=== PATIENT | female | born 1950 | race Caucasian/White ===

== ENCOUNTER 2020-09-03 14:26 | Outpatient (REF) | payer MEDICARE, OTHER, SELFPAY ==
[2020-09-03 15:24] LABS: Influenza A PCR NEGATIVE (Negative); Influenza B PCR NEGATIVE (Negative); Resp Syncy Virus RNA Qual PCR NEGATIVE (Negative); SARS COV2 PCR INHOUSE NEGATIVE (Negative)
== END 2020-09-03 14:27 | disposition home or self-care (01) ==
LOC: HO.LNP 14:26
PROVIDERS: Visit Provider Internal Medicine
DX: Z20.828 Contact with and (suspected) exposure to other viral communicable diseases (principal)
CPT/HCPCS: 0241U

== ENCOUNTER → 2020-11-30 09:41 | Outpatient (BNVA) | payer MEDICARE, OTHER, SELFPAY | PROVIDERS: PCP Internal Medicine; Visit Provider Orthopaedic Surgery | DX: M65.341 Trigger finger, right ring finger (principal); M19.041 Primary osteoarthritis, right hand; M19.042 Primary osteoarthritis, left hand; G56.01 Carpal tunnel syndrome, right upper limb | CPT/HCPCS: 99202 ==

== ENCOUNTER 2021-02-08 14:54 | Outpatient (REF) | payer MEDICARE, OTHER, SELFPAY ==
[2021-02-08 17:04] LABS: Hematocrit 52.5 % (37-47); Hemoglobin 16.4 g/dl (12.0-16.0); Mean Corpuscular HGB Conc 31.2 g/dl (31.0-35.0); Mean Corpuscular Hemoglobin 28.8 pg (27.0-33.0); Mean Corpuscular Volume 92.3 fL (80-98); Mean Platelet Volume 10.9 fL (9.4-12.3); Platelet Count 271 X10*3/uL (160-400); Red Blood Count 5.69 X10*6/uL (4.20-5.50); Red Cell Distribution Width 14.6 % (11.0-16.0)
[2021-02-08 17:16] LABS: Alanine Aminotransferase 22 U/L (0-31); Albumin Level 3.9 g/dL (3.5-5.0); Alkaline Phosphatase 161 U/L (39-117); Amylase 40 U/L (28-100); Anion Gap 13 (12-20); Aspartate Amino Transferase 29 U/L (5-31); Bilirubin Total 0.6 mg/dL (0.0-1.0); Blood Urea Nitrogen 20 mg/dL (9-16); C Reactive Protein 3.13 mg/dL (< or = 0.50); Carbon Dioxide 36 mmol/L (22-29); Chloride 98 mmol/L (96-108); Estimated Glomerular Filt Rate 54; Glucose Random 132 mg/dL (60-115); Potassium 3.7 mmol/L (3.3-5.1); Sodium 143 mmol/L (135-145); Total Protein 7.5 g/dL (6.5-8.0)
[2021-02-08 17:40] LABS: Vitamin D 25-OH Total 49.9 ng/mL (>30)
[2021-02-08 17:44] LABS: Vitamin B12 729 pg/mL (200-900)
[2021-02-08 18:25] LABS: SLIDE REVIEW MANUAL DIFF
[2021-02-08 18:31] LABS: Atypical Lymph Absolute Manual 1.2 x10*3/uL; Atypical Lymphs Percent Manual 9 % (0-6); Band Neutrophils Percent 2 % (3-5); Basophils Abs Manual 0.1 X10*3/uL (0.0-0.3); Basophils Percent Manual 1 % (0-1); Giant Platelet PRESENT; Lymphocytes Absolute Manual 3.5 X10*3/uL (0.6-4.8); Lymphocytes Percent Manual 27 % (20-40); Monocytes Absolute Manual 0.3 X10*3/uL (0.0-1.2); Monocytes Percent Manual 2 % (2-11); Neutrophils Absolute Manual 7.9 X10*3/uL (2.2-7.9); Neutrophils Percent Manual 59 % (45-73); Platelet Estimate NORMAL (NORMAL); Platelet Morphology Comment NOTED; RBC Morphology NORMAL; Smudge Cells PRESENT
== END 2021-02-08 14:55 | disposition home or self-care (01) ==
LOC: HO.LAB 14:54
PROVIDERS: PCP Internal Medicine; Visit Provider Internal Medicine
DX: J44.9 Chronic obstructive pulmonary disease, unspecified (principal); R60.0 Localized edema; I10 Essential (primary) hypertension; M19.90 Unspecified osteoarthritis, unspecified site; G62.9 Polyneuropathy, unspecified
CPT/HCPCS: 36415; 80053; 82150; 82306; 82607; 85007; 85025; 85027; 86140

== ENCOUNTER 2021-03-05 07:44 | Outpatient (REF) | payer MEDICARE, OTHER, SELFPAY ==
--- NOTE | ~2021-03-05 | US_ITS ---
EXAMINATION: US ABDOMEN COMPLETE CLINICAL INFORMATION: CKD. Abnormal serum enzymes, elevated alkaline phosphatase. COMPARISON: None TECHNIQUE: Real-time imaging of the abdominal viscera. FINDINGS: PANCREAS: Normal. ABDOMINAL AORTA: The proximal abdominal aorta is normal in caliber. The mid and distal abdominal aorta is not well visualized due to bowel gas. INFERIOR VENA CAVA: Visualized portions are normal. LIVER: The liver is normal in size. The liver contour is normal. Liver echotexture is increased. No focal hepatic lesion. There is no intrahepatic biliary duct dilatation seen. GALLBLADDER: Surgically absent. COMMON BILE DUCT: Normal in caliber measuring 0.5 cm in diameter. RIGHT KIDNEY: There is a 2.2 x 1.6 x 1.7 cm cyst in the midpole. No hydronephrosis or renal calculi. The kidney measures 10.0 cm in maximum dimension. LEFT KIDNEY: There is a 1.4 x 1.2 x 1.3 cm cyst exophytic to the lower pole. No hydronephrosis or renal calculi. The kidney measures 11.6 cm in maximum dimension. SPLEEN: Normal. The spleen measures 11.1 cm in maximum dimension. FREE FLUID: None. US/US abdomen complete IMPRESSION: Echogenic liver. Differential would include fatty infiltration and hepatocellular disease. The liver is normal in size and contour. Small bilateral renal cysts. Limited visualization of the aorta. Post cholecystectomy.
== END 2021-03-05 07:45 | disposition home or self-care (01) ==
LOC: HO.US 07:44
PROVIDERS: Visit Provider Internal Medicine
DX: R74.8 Abnormal levels of other serum enzymes (principal); N18.9 Chronic kidney disease, unspecified
CPT/HCPCS: 76700

== ENCOUNTER 2021-10-18 14:26 | Outpatient (REF) | payer MEDICARE, OTHER, SELFPAY ==
--- NOTE | ~2021-10-18 | US_ITS ---
EXAMINATION: US VENOUS ULTRASOUND WITH DOPPLER LOWER EXTREMITY, LEFT CLINICAL INFORMATION: Left leg swelling and mass COMPARISON: None TECHNIQUE: Ultrasound of the deep veins is performed from the hip to the calf with compression sonography and color and pulse Doppler assessment. Spectral analysis with color-flow imaging is performed. FINDINGS: There is normal venous compression and respiratory variation and augmented flow. The visualized common femoral vein, superficial femoral vein, profunda femoral vein, popliteal vein, and the trifurcation region shows no evidence of deep venous thrombosis. There is no popliteal fossa cyst. There is a soft tissue swelling or edema in the popliteal fossa and proximal calf. US/US venous duplex LE LT IMPRESSION: Soft tissue swelling or edema in the popliteal fossa and proximal calf. No DVT or Anaya's cyst demonstrated in the left lower extremity.
== END 2021-10-18 14:27 | disposition home or self-care (01) ==
LOC: HO.US 14:26
PROVIDERS: Visit Provider Internal Medicine
DX: R22.42 Localized swelling, mass and lump, left lower limb (principal)
CPT/HCPCS: 93971

== ENCOUNTER 2021-10-26 14:21 | Outpatient (REF) | payer MEDICARE, OTHER, SELFPAY ==
--- NOTE | ~2021-10-26 | US_ITS ---
EXAMINATION: US VENOUS ULTRASOUND WITH DOPPLER LOWER EXTREMITY, LEFT CLINICAL INFORMATION: Swelling COMPARISON: Previous exam most recent 10/18/2021 TECHNIQUE: Ultrasound of the deep veins is performed from the hip to the calf with compression sonography and color and pulse Doppler assessment. Spectral analysis with color-flow imaging is performed. FINDINGS: There is normal venous compression and respiratory variation and augmented flow. The visualized common femoral vein, superficial femoral vein, profunda femoral vein, and popliteal vein shows no evidence of deep venous thrombosis. Calf veins are not well visualized due to swelling. There is no significant popliteal fossa cyst. US/US venous duplex LE LT IMPRESSION: No DVT demonstrated in the left lower extremity. Calf veins not well visualized.
== END 2021-10-26 14:22 | disposition home or self-care (01) ==
LOC: HO.US 14:21
PROVIDERS: PCP Internal Medicine; Visit Provider Internal Medicine
DX: R22.42 Localized swelling, mass and lump, left lower limb (principal)
CPT/HCPCS: 93971

== ENCOUNTER 2021-11-01 11:49 | Outpatient (REF) | payer MEDICARE, OTHER, SELFPAY ==
--- NOTE | ~2021-11-01 | MR_ITS ---
EXAMINATION: MRI ANKLE WITHOUT CONTRAST, LEFT CLINICAL INFORMATION: Left leg pain, negative ultrasound. Evaluate for Achilles tear. No injury. COMPARISON: None TECHNIQUE: MRI of the left ankle was performed without contrast on a high-field MRI scanner. FINDINGS: SUBCUTANEOUS SOFT TISSUES: Moderate fluid signal noted throughout the subcutaneous soft tissues compatible with edema but cannot exclude cellulitis. MUSCLES/TENDONS: There is also generalized severe fatty infiltration with atrophy of the essentially all the muscles in the lower leg and visualized foot. There is scattered mild edema within the plantar musculature of the foot. Achilles: The tendon is normal. Peroneal brevis tendon: There is heterogeneity, irregularity and increased signal within the tendon as it passes below the fibula to the level of the peroneal tubercle indicative of longitudinal partial tearing. No transverse defect or tendon retraction. Mild tenosynovitis. Peroneal longus intact. PLANTAR FASCIA: There is mild thickening of the proximal plantar fascia compatible with old partial tear or plantar fasciitis. Moderate-sized plantar calcaneal spur noted. NEUROVASCULAR STRUCTURES/TARSAL TUNNEL: Normal. LIGAMENTS: Intact. BONE AND ARTICULAR CARTILAGE: In the talus just deep to the posterior subtalar joint there is a focal serpentine-shaped area of heterogeneous abnormal signal with an appearance characteristic for a chronic bone infarct. There are areas of fat within the central portion of the abnormality along with well-defined peripheral margin predominately bright on T2 and dark on T1. This area measures approximately 1 cm. There is no surrounding edema. THIRD TARSOMETATARSAL JOINT: Mild arthrosis manifested by subchondral cystic change. MR/MR ankle LT wo con IMPRESSION: 1. Partial tear of the peroneal brevis tendon with mild tenosynovitis. 2. The Achilles is intact. 3. Abnormality in the subcutaneous tissues most compatible with prominent edema but cannot exclude cellulitis. 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 5. Diffuse muscle abnormality with severe fatty infiltration throughout and mild edema. This raises the question of denervation myositis. 6. Mild arthrosis of the 3rd tarsometatarsal joint.
== END 2021-11-01 11:50 | disposition home or self-care (01) ==
LOC: HO.MRI 11:49
PROVIDERS: PCP Internal Medicine; Visit Provider Internal Medicine
DX: M79.662 Pain in left lower leg (principal)
CPT/HCPCS: 73721

== ENCOUNTER 2022-06-17 09:34 | Emergency (ER) | payer MEDICARE, OTHER, SELFPAY ==
--- NOTE | ~2022-06-17 | US_ITS ---
EXAMINATION: US VENOUS ULTRASOUND WITH DOPPLER LOWER EXTREMITY, RIGHT CLINICAL INFORMATION: Posterior right knee pain. COMPARISON: None TECHNIQUE: Ultrasound of the deep veins is performed from the hip to the calf with compression sonography and color and pulse Doppler assessment. Spectral analysis with color-flow imaging is performed. FINDINGS: There is normal venous compression and respiratory variation and augmented flow. The visualized common femoral vein, superficial femoral vein, profunda femoral vein, popliteal vein, and the trifurcation region shows no evidence of deep venous thrombosis. No right popliteal cyst. Mild subcutaneous edema in the right calf. If the patient's symptoms persist, followup ultrasound in 5 days 7 days might be of value to exclude proximal propagation from a non-visualized calf vein. US/US venous duplex LE RT IMPRESSION: No evidence for deep venous thrombosis in the visualized veins of the right lower extremity.
--- NOTE | ~2022-06-17 | XR_ITS ---
EXAMINATION: XR KNEE, RIGHT CLINICAL INFORMATION: Right knee pain COMPARISON: None TECHNIQUE: Four views of the right knee. FINDINGS: There is no evidence of acute fracture or dislocation of the right knee. There is severe narrowing of the medial joint space compartment with some marginal spurring. There is mild marginal spurring of the lateral joint space without significant narrowing. There is marked narrowing of the patellofemoral joint with spurring and subchondral cyst formation. There is a small amount of suprapatellar fluid present. There is a faint 7 mm calcification seen on lateral view overlying the posterior joint space and this may represent a loose body. XR/XR knee RT 4V IMPRESSION: Severe degenerative change of the medial joint space compartment and patellofemoral joint as described. Question loose body.
[2022-06-17 09:52] VITALS: BP 143/89; PULSE 70; O2SAT 94
[2022-06-17 09:53] VITALS: BP 120/65; PULSE 70; RESP 18; TEMP 36.6; O2SAT 95; BMI 46.2
--- NOTE | 2022-06-17 12:12 | ED.GENADULT ---
HPI - General Adult General Chief complaint: Extremity Injury, Lower Stated complaint: BILAT LEG PAIN Time Seen by Provider: 06/17/22 10:01 Source: patient Mode of arrival: ambulatory Limitations: no limitations History of Present Illness HPI narrative: 71 old female history of osteoarthritis, carpal tunnel syndrome, presents to ED for right, anterior/posterior knee pain, and upper calf pain for the past 2 days. Patient states painful to walk. Patient denies any recent trauma to the area. Patient denies any chest pain or shortness of breath. Patient denies any leg swelling, redness, fever, chest pain, pleurisy shortness of breath, or chills. Patient denies any numbness/swelling, redness, bluish/black discloration likes of extremity. Patient denies any back pain. Related Data Home Medications Medication Instructions Recorded Confirmed furosemide 20 mg tablet 10 mg PO QAM 11/30/20 gabapentin 100 mg capsule 100 mg PO DAILY 11/30/20 lisinopril 2.5 mg tablet 2.5 mg PO DAILY 11/30/20 tramadol 50 mg tablet 50 mg PO DAILY 11/30/20 Previous Rx's Medication Instructions Recorded ketorolac 10 mg tablet 10 mg PO QID PRN pain 5 days #20 06/17/22 tabs Allergies Allergy/AdvReac Type Severity Reaction Status Date / Time PCN Allergy Unknown rash Uncoded 03/16/12 00:00 Penicillin Allergy Unknown rash Uncoded 11/30/20 09:57 PredniSONE Allergy Unknown high dose Uncoded 11/30/20 09:57 gives her rashes prednisone Allergy Unknown rash Uncoded 03/16/12 00:00 Review of Systems Review of Systems: Right anterior/ posterior knee pain Yes all other systems are reviewed and are negative PMFSH Past Medical History Medical History (Updated 06/17/22 @ 15:30 by COREY Gibbs) Carpal tunnel syndrome, left High blood pressure Nerve pain Surgical History (Updated 11/30/20 @ 10:01 by MATT Castellanos) H/O: hysterectomy Social History Social History (Updated 11/30/20 @ 10:02 by MATT Castellanos) Advance Directives: Yes Advance Directives Information Provided: Yes Advance Directives on File: No Current occupational status: retired Current occupation: left handed Physical Exam ED Vital Signs: Vital Signs - 24 hr 06/17/22 09:53 06/17/22 12:25 06/17/22 15:28 Temperature 98 F 98.4 F Pulse Rate 70 62 78 Respiratory Rate 18 13 Blood Pressure 120/65 116/62 125/76 Pulse Oximetry 95 93 98 Oxygen Delivery Method Room Air Room Air BMI result Body Mass Index 46.2 Const General: cooperative, healthy appearing, comfortable, no acute distress, well developed, alert, awake and Physically active Orientation/consciousness: oriented to time and patient oriented x3 [facility] Head: Yes normal to inspection, Yes No palpable skull fracture present, Yes normocephalic, Yes atraumatic and No abrasion Eyes General: appearance normal, both eyes and all related structures Neck Neck: Yes normal visual inspection, Yes full ROM, Yes no lymphadenopathy, Yes no meningeal signs, Yes trachea midline, Yes supple, No anterior neck swelling and No tender Chest Chest palpation & inspection: normal inspection of the chest and normal palpation of entire chest wall Resp Effort & Inspection: normal respiratory effort and able to speak in complete sentences Auscultation: clear to auscultation bilaterally Cardio Jugular venous distension: no JVD Heart sounds: S1 normal heart sound present and S2 normal heart sound present GI Inspection: Yes normal to inspection and No abdominal wall ecchymosis Palpation (GI): not firm, nontender, no guarding and not rigid General: No CVA tenderness and Yes no CVA tenderness Back/Spine/Pelvis Back: no CVA tenderness, No CVA tenderness and No back tenderness Skin General skin exam: no rashes or lesions noted and elasticity normal Neuro General: oriented to time, patient oriented x3, gait normal, tone normal, no meningeal signs and CN's II-XI intact bilaterally Cranial nerves: Yes CN's II-XII intact bilaterally Extrem Other: Bilateral lower extremities negative for any redness, swelling, pitting edema, crepitus, deformity, or ecchymosis. bilateral lower extremities motor, neuro, and vascular exam. General: Yes normal to inspection and Yes full ROM Knee images: 1. Positive for tenderness on palpation. Negative for any erythema, warmth, or swelling. 2. Positive for tenderness on palpation. Negative for any erythema, warmth, or swelling. 3. Tenderness on palpation. Negative for any redness, warmth, or deformity Psych Appearance: grossly normal, well kempt and not disheveled Course Course Course Narrative: Patient sent for x-ray and ultrasound of right knee Reevaluation(s) Reevaluation #1: Ultrasound came back negative for DVT or Anaya cyst. Knee x-ray came back positive for severe arthritis and small suprapatellar effusion. Patient given morphine on top of Toradol. Patient did not want physical therapy for evaluation for possible SNF or custodial. Patient baseline ambulates with scooter and wheelchair. Patient has help at home with family. Time: 15:52 Medical Decision Making MDM Narrative Medical decision making narrative: Knee arthritis Discharge Plan Discharge Clinical Impression: Arthritis of knee, right, Effusion of right knee Patient Disposition: Home, Self-Care Instructions: Osteoarthritis (ED), Swollen Knee Joint (ED) Additional Instructions: Your x-ray shows severe arthritis of the knee with small joint effusion. Ultrasound came back negative for DVT or Anaya cyst. Return to ED for any redness, swelling, pus discharge, foul odor, bluish discoloration, numbness, chest pain, shortness of breath, or any other concerning symptoms. You will be discharged with Toradol. Do not take any other NSAIDs with Toradol. Prescriptions: New ketorolac 10 mg tablet 10 mg PO QID PRN (Reason: pain) 5 Days Qty: 20 0RF Rx Instructions: patient received toradol 30mg IM in the ED Referrals: [facility] [place] [facility] [Provider Group] (Severe right knee arthritis with joint effusion) Interventions: ED Discharge Assessment Last Done: 06/17/22 16:08 Discharge Date/Time: 06/17/22 16:08 Print Language: Kyrgyz
[2022-06-17 12:25] VITALS: BP 116/62; PULSE 62; RESP 13; TEMP 36.9; O2SAT 93
[2022-06-17] MEDS: Cyclobenzaprine HCl 10 MG TABLET PO (12:57)
[2022-06-17] MEDS: Ketorolac Tromethamine 15 MG/ML VIAL IVPUSH (12:58)
[2022-06-17] MEDS: Morphine Sulfate 4 MG/ML CARTRIDGE IVPUSH (14:50)
[2022-06-17 15:28] VITALS: BP 125/76; PULSE 78; O2SAT 98
== END 2022-06-17 16:08 | disposition home or self-care (01) ==
PROVIDERS: Emergency Provider Student in an Organized Health Care Education/Training Program; PCP Internal Medicine
DX: M17.0 Bilateral primary osteoarthritis of knee (principal); M25.461 Effusion, right knee; R60.0 Localized edema; Z79.899 Other long term (current) drug therapy
CPT/HCPCS: 73564; 93971; 96374; 96375; 99283; 99284; J1885; J2270

== ENCOUNTER 2022-06-21 14:25 | Outpatient (REF) | payer MEDICARE, OTHER, SELFPAY ==
[2022-06-21 14:58] LABS: MANUAL DIFF FLAG NO
[2022-06-21 15:23] LABS: Basophils Absolute Auto 0.1 X10*3/uL (0.0-0.2); Basophils Percent Auto 0.7 % (0-2); Eosinophils Absolute Auto 0.4 X10*3/uL (0.0-0.4); Hematocrit 42.8 % (37.0-47.0); Hemoglobin 13.6 g/dl (12.0-16.0); Imm Gran Abs Auto 0.03 X10*3/uL (0.00-0.03); Imm Gran Pct Auto 0.3 % (0.0-0.4); Lymphocytes Percent Auto 26.4 % (20-40); Mean Corpuscular HGB Conc 31.8 g/dl (31.0-35.0); Mean Corpuscular Hemoglobin 30.7 pg (27.0-33.0); Mean Corpuscular Volume 96.6 fL (80.0-98.0); Monocytes Absolute Auto 1.2 X10*3/uL (0.1-1.2); Monocytes Percent Auto 10.1 % (2-11); Neutrophils Absolute Auto 6.9 x10*3/uL (2.0-8.3); Neutrophils Percent Auto 59.5 % (45-73); Platelet Count 276 X10*3/uL (160-400); Red Blood Count 4.43 X10*6/uL (4.20-5.50); Red Cell Distribution Width 14.7 % (11.0-16.0); White Blood Count 11.5 X10*3/uL (4.8-10.8)
[2022-06-21 15:32] LABS: Estimated Average Glucose 123 mg/dL; Hemoglobin A1c % 5.9 %
[2022-06-21 15:44] LABS: Alanine Aminotransferase 22 U/L (0-31); Albumin Level 3.8 g/dL (3.5-5.0); Alkaline Phosphatase 137 U/L (39-117); Anion Gap 19 (12-20); Aspartate Amino Transferase 24 U/L (5-31); Bilirubin Total 0.3 mg/dL (0.0-1.0); Blood Urea Nitrogen 54 mg/dL (9-16); Calcium 9.3 mg/dL (8.4-10.2); Carbon Dioxide 25 mmol/L (22-29); Chloride 99 mmol/L (96-108); Estimated Glomerular Filt Rate 24; Glucose Random 94 mg/dL (60-115); Potassium 4.7 mmol/L (3.3-5.1); Sodium 138 mmol/L (135-145); Total Protein 7.6 g/dL (6.5-8.0)
[2022-06-21 15:57] LABS: Thyroid Stimulating Hormone 1.31 uIU/mL (0.32-4.0)
== END 2022-06-21 14:26 | disposition home or self-care (01) ==
LOC: HO.LAB 14:25
PROVIDERS: PCP Internal Medicine; Visit Provider Internal Medicine
DX: J44.9 Chronic obstructive pulmonary disease, unspecified (principal); E11.9 Type 2 diabetes mellitus without complications; I10 Essential (primary) hypertension; R60.9 Edema, unspecified; M19.90 Unspecified osteoarthritis, unspecified site
CPT/HCPCS: 36415; 80053; 83036; 84443; 85025

== ENCOUNTER 2022-10-10 12:16 | Outpatient (REF) | payer MEDICARE, OTHER, SELFPAY ==
[2022-10-10 12:29] LABS: MANUAL DIFF FLAG NO
[2022-10-10 14:18] LABS: Basophils Absolute Auto 0.1 X10*3/uL (0.0-0.2); Basophils Percent Auto 0.7 % (0-2); Eosinophils Absolute Auto 0.4 X10*3/uL (0.0-0.4); Hematocrit 40.8 % (37.0-47.0); Hemoglobin 12.8 g/dl (12.0-16.0); Imm Gran Abs Auto 0.05 X10*3/uL (0.00-0.03); Imm Gran Pct Auto 0.5 % (0.0-0.4); Lymphocytes Absolute Auto 2.5 X10*3/uL (1.2-4.9); Lymphocytes Percent Auto 23.4 % (20-40); Mean Corpuscular HGB Conc 31.4 g/dl (31.0-35.0); Mean Corpuscular Hemoglobin 30.6 pg (27.0-33.0); Mean Corpuscular Volume 97.6 fL (80.0-98.0); Mean Platelet Volume 10.4 fL (9.4-12.3); Monocytes Absolute Auto 0.8 X10*3/uL (0.1-1.2); Monocytes Percent Auto 7.3 % (2-11); Neutrophils Absolute Auto 6.9 x10*3/uL (2.0-8.3); Neutrophils Percent Auto 64.1 % (45-73); Platelet Count 270 X10*3/uL (160-400); Red Blood Count 4.18 X10*6/uL (4.20-5.50); Red Cell Distribution Width 15.1 % (11.0-16.0); White Blood Count 10.8 X10*3/uL (4.8-10.8)
[2022-10-10 14:48] LABS: Alanine Aminotransferase 23 U/L (0-31); Albumin Level 3.4 g/dL (3.5-5.0); Alkaline Phosphatase 140 U/L (39-117); Anion Gap 17 (12-20); Aspartate Amino Transferase 26 U/L (5-31); Bilirubin Total 0.3 mg/dL (0.0-1.0); Blood Urea Nitrogen 81 mg/dL (9-16); C Reactive Protein 6.44 mg/dL (< or = 0.50); Calcium 9.7 mg/dL (8.4-10.2); Carbon Dioxide 32 mmol/L (22-29); Chloride 97 mmol/L (96-108); Estimated Glomerular Filt Rate 16; Glucose Random 117 mg/dL (60-115); Magnesium 2.7 mg/dL (1.6-2.6); Potassium 4.3 mmol/L (3.3-5.1); Sodium 142 mmol/L (135-145); Total Protein 6.9 g/dL (6.5-8.0)
== END 2022-10-10 12:17 | disposition home or self-care (01) ==
LOC: HO.LAB 12:16
PROVIDERS: PCP Internal Medicine; Visit Provider Internal Medicine
DX: I12.9 Hypertensive chronic kidney disease with stage 1 through stage 4 chronic kidney disease, or unspecified chronic kidney disease (principal); N18.9 Chronic kidney disease, unspecified; M19.90 Unspecified osteoarthritis, unspecified site; R25.1 Tremor, unspecified
CPT/HCPCS: 36415; 80053; 83735; 85025; 86140

== ENCOUNTER 2022-10-13 15:07 | Outpatient (REF) | payer MEDICARE, OTHER, SELFPAY ==
--- NOTE | ~2022-10-13 | US_ITS ---
EXAMINATION: US RETROPERITONEAL COMPLETE (RENAL) CLINICAL INFORMATION: Acute renal insufficiency. COMPARISON: Abdominal ultrasound dated 03/05/2021. TECHNIQUE: Real-time imaging of the kidneys and bladder. FINDINGS: RIGHT KIDNEY: 9.5 x 5.1 x 5.3 cm (SAG x AP x TRV). An interpolar anechoic cyst measures 2.0 cm. No hydronephrosis or nephrolithiasis. Color Doppler showed no abnormal vascular flow. LEFT KIDNEY: 10.2 x 5.4 x 4.4 cm (SAG x AP x TRV). An interpolar anechoic cyst measures 2.4 cm. A second interpolar anechoic cyst measures 1.5 cm. A lower pole exophytic anechoic cyst measures 1.9 cm. No hydronephrosis or nephrolithiasis. Color Doppler showed no abnormal vascular flow. BLADDER: Well distended and normal. Bilateral ureteral jets are demonstrated. Prevoid bladder volume is 217 mL. Postvoid bladder volume is 18 mL. US/US retroperitoneal comp IMPRESSION: Small renal cysts bilaterally demonstrate benign features not requiring follow-up. No other significant abnormality.
== END 2022-10-13 15:08 | disposition home or self-care (01) ==
LOC: HO.US 15:07
PROVIDERS: Visit Provider Internal Medicine
DX: N17.9 Acute kidney failure, unspecified (principal)
CPT/HCPCS: 76770

== ENCOUNTER 2022-11-28 12:23 | Outpatient (REF) | payer MEDICARE, OTHER, SELFPAY ==
[2022-11-28 13:40] LABS: MANUAL DIFF FLAG NO
[2022-11-28 13:59] LABS: Basophils Absolute Auto 0.1 X10*3/uL (0.0-0.2); Basophils Percent Auto 0.5 % (0-2); Eosinophils Absolute Auto 0.2 X10*3/uL (0.0-0.4); Eosinophils Percent Auto 1.7 % (0-4); Hematocrit 43.5 % (37.0-47.0); Hemoglobin 13.4 g/dl (12.0-16.0); Imm Gran Abs Auto 0.06 X10*3/uL (0.00-0.03); Imm Gran Pct Auto 0.5 % (0.0-0.4); Lymphocytes Absolute Auto 2.3 X10*3/uL (1.2-4.9); Lymphocytes Percent Auto 18.2 % (20-40); Mean Corpuscular HGB Conc 30.8 g/dl (31.0-35.0); Mean Corpuscular Hemoglobin 29.6 pg (27.0-33.0); Mean Platelet Volume 9.6 fL (9.4-12.3); Monocytes Absolute Auto 0.9 X10*3/uL (0.1-1.2); Monocytes Percent Auto 6.8 % (2-11); Neutrophils Absolute Auto 9.2 x10*3/uL (2.0-8.3); Neutrophils Percent Auto 72.3 % (45-73); Platelet Count 300 X10*3/uL (160-400); Red Blood Count 4.53 X10*6/uL (4.20-5.50); Red Cell Distribution Width 15.2 % (11.0-16.0); White Blood Count 12.7 X10*3/uL (4.8-10.8)
[2022-11-28 14:16] LABS: Alanine Aminotransferase 17 U/L (0-31); Albumin Level 3.4 g/dL (3.5-5.0); Alkaline Phosphatase 130 U/L (39-117); Anion Gap 14 (12-20); Aspartate Amino Transferase 22 U/L (5-31); Bilirubin Total 0.4 mg/dL (0.0-1.0); Blood Urea Nitrogen 22 mg/dL (9-16); Calcium 9.5 mg/dL (8.4-10.2); Carbon Dioxide 31 mmol/L (22-29); Chloride 97 mmol/L (96-108); Estimated Glomerular Filt Rate 44; Glucose Random 113 mg/dL (60-115); Potassium 4.1 mmol/L (3.3-5.1); Sodium 138 mmol/L (135-145); Total Protein 6.8 g/dL (6.5-8.0)
[2022-11-28 15:03] LABS: B Type Natriuretic Peptide 91 pg/mL (<100)
== END 2022-11-28 12:24 | disposition home or self-care (01) ==
LOC: HO.10HDL 12:23
PROVIDERS: Visit Provider Internal Medicine
DX: J44.9 Chronic obstructive pulmonary disease, unspecified (principal); R60.0 Localized edema; I12.9 Hypertensive chronic kidney disease with stage 1 through stage 4 chronic kidney disease, or unspecified chronic kidney disease; N18.9 Chronic kidney disease, unspecified
CPT/HCPCS: 36415; 80053; 83880; 85025

== ENCOUNTER 2022-12-20 09:57 | Outpatient (REF) | payer MEDICARE, OTHER, SELFPAY ==
[2022-12-20 11:03] LABS: Anion Gap 16 (12-20); Blood Urea Nitrogen 38 mg/dL (9-16); C Reactive Protein 21.91 mg/dL (< or = 0.50); Calcium 9.8 mg/dL (8.4-10.2); Carbon Dioxide 32 mmol/L (22-29); Chloride 93 mmol/L (96-108); Estimated Glomerular Filt Rate 27; Glucose Random 130 mg/dL (60-115); Potassium 3.9 mmol/L (3.3-5.1); Sodium 137 mmol/L (135-145)
[2022-12-20 11:08] LABS: Erythrocyte Sedimentation Rate 81 MM/HR (0-20)
== END 2022-12-20 09:58 | disposition home or self-care (01) ==
LOC: HO.10HDL 09:57
PROVIDERS: Visit Provider Internal Medicine
DX: M54.9 Dorsalgia, unspecified (principal); M25.519 Pain in unspecified shoulder
CPT/HCPCS: 36415; 80048; 82550; 85652; 86140

== ENCOUNTER → 2023-01-04 10:52 | Outpatient (REF) | payer MEDICARE, OTHER, SELFPAY ==
--- NOTE | ~2023-01-04 | NM_ITS ---
EXAMINATION: NM BONE SCAN OF THE WHOLE BODY CLINICAL INFORMATION: A 72-year-old female with history of lung cancer, presented with bone pain. COMPARISON: No existing relevant imaging study available. TECHNIQUE: Multiple gamma scintillation camera images of the whole body were performed 2.25 hours following the intravenous administration of 40 mCi Tc-99m MDP. FINDINGS: In the head, no suspicious focal lesion. In the thoracic cage and upper extremities, no suspicious focal lesion. Mild increased asymmetric radiotracer activities around both shoulder and sternoclavicular joints likely represent arthritic and/or posttraumatic changes. In the spine, focal increased radiotracer activities at the upper to mid lumbar spine are nonspecific however, may represent degenerative changes. Correlation with alternative imaging modality including radiographs and/or CT scan or MRI as appropriate may be considered for further clarification, as clinically appropriate. There are no prior bone scan available for comparison. In the pelvis, no suspicious focal lesion. In the lower extremities, moderately intense abnormal increased radiotracer activities around both knees and both feet (specifically around the right ankle and the left midfoot) are likely posttraumatic and/or degenerative arthritic changes. No other definite bony abnormalities are noted. The urinary bladder and faint visualization of both kidneys are noted. The left kidney is low-lying. NM/NM bone scan whole body IMPRESSION: 1. No definite scintigraphic evidence of osseous metastasis. However, foci of increased radiotracer activities at upper to mid lumbar spine are nonspecific. Correlation with alternative imaging modality including radiographs and/or CT scan or MRI as appropriate may be considered for further clarification as clinically appropriate. There are no prior studies available at the moment for comparison. The study was read without the benefit of comparison with prior studies. 2. Moderately intense abnormal increased radiotracer activities around both shoulder, sternoclavicular joints, both knees and both feet likely represent degenerative and/or posttraumatic arthritic changes.
== END ==
LOC: HO.NUCMED 10:52
PROVIDERS: PCP Internal Medicine; Visit Provider Internal Medicine
DX: M85.80 Other specified disorders of bone density and structure, unspecified site (principal)
CPT/HCPCS: 78306; A9503

== ENCOUNTER 2023-02-27 13:03 | Outpatient (REF) | payer MEDICARE, OTHER, SELFPAY ==
[2023-02-27 14:06] LABS: MANUAL DIFF FLAG NO
[2023-02-27 14:18] LABS: Basophils Absolute Auto 0.1 X10*3/uL (0.0-0.2); Basophils Percent Auto 0.6 % (0-2); Eosinophils Absolute Auto 0.2 X10*3/uL (0.0-0.4); Eosinophils Percent Auto 1.1 % (0-4); Hematocrit 42.7 % (37.0-47.0); Hemoglobin 13.2 g/dl (12.0-16.0); Imm Gran Abs Auto 0.08 X10*3/uL (0.00-0.03); Imm Gran Pct Auto 0.6 % (0.0-0.4); Lymphocytes Percent Auto 20.6 % (20-40); Mean Corpuscular HGB Conc 30.9 g/dl (31.0-35.0); Mean Corpuscular Hemoglobin 29.4 pg (27.0-33.0); Mean Corpuscular Volume 95.1 fL (80.0-98.0); Mean Platelet Volume 9.4 fL (9.4-12.3); Monocytes Percent Auto 6.8 % (2-11); Neutrophils Absolute Auto 10.2 x10*3/uL (2.0-8.3); Neutrophils Percent Auto 70.3 % (45-73); Platelet Count 374 X10*3/uL (160-400); Red Blood Count 4.49 X10*6/uL (4.20-5.50); Red Cell Distribution Width 16.5 % (11.0-16.0); White Blood Count 14.5 X10*3/uL (4.8-10.8)
[2023-02-27 14:54] LABS: Alanine Aminotransferase 24 U/L (0-31); Albumin Level 3.5 g/dL (3.5-5.0); Alkaline Phosphatase 133 U/L (39-117); Anion Gap 12 (12-20); Aspartate Amino Transferase 27 U/L (5-31); Bilirubin Total 0.3 mg/dL (0.0-1.0); Blood Urea Nitrogen 37 mg/dL (9-16); C Reactive Protein 4.51 mg/dL (< or = 0.50); Calcium 10.9 mg/dL (8.4-10.2); Carbon Dioxide 35 mmol/L (22-29); Chloride 95 mmol/L (96-108); Estimated Glomerular Filt Rate 31; Glucose Random 86 mg/dL (60-115); Potassium 4.4 mmol/L (3.3-5.1); Sodium 138 mmol/L (135-145); Total Protein 7.9 g/dL (6.5-8.0)
[2023-02-27 15:10] LABS: Thyroid Stimulating Hormone 0.76 uIU/mL (0.32-4.0)
[2023-02-27 15:18] LABS: Vitamin B12 942 pg/mL (200-900)
== END 2023-02-27 13:04 | disposition home or self-care (01) ==
LOC: HO.10HDL 13:03
PROVIDERS: Visit Provider Internal Medicine
DX: J44.9 Chronic obstructive pulmonary disease, unspecified (principal); N18.9 Chronic kidney disease, unspecified; R25.1 Tremor, unspecified
CPT/HCPCS: 36415; 80053; 82607; 84443; 85025; 86140

== ENCOUNTER 2023-03-15 16:29 | Inpatient (IN) | payer MEDICARE, OTHER, SELFPAY ==
[2023-03-15] VITALS (7 sets, daily range): BP systolic 88–125; BP diastolic 34–91; PULSE 74–89; RESP 16–22; TEMP 36.2–36.8; O2SAT 83–93; BMI 47.6
--- NOTE | ~2023-03-15 | CT_ITS ---
EXAMINATION: CT CHEST WITHOUT CONTRAST CLINICAL INFORMATION: Hypoxia. COMPARISON: None available. TECHNIQUE: Multidetector volumetric CT imaging of the chest was done. Axial MIP volume rendering provided. Sagittal and coronal reformatted images were obtained. This CT examination was performed using dose optimization techniques as appropriate, variously including the following: *Automated exposure control *Adjustment of mA and/or kV according to patient size (this includes techniques or standardized protocols for targeted exams where dose is matched to indication/reason for exam; i.e. extremities or head) *Use of iterative reconstruction technique DLP: 403 mGy-cm FINDINGS: Image quality is technically degraded by motion artifact. LUNGS: Scarring at the left apex. Moderate centrilobular emphysema. Mild subpleural reticular changes. 6 mm nodule right middle lobe on image 247. 4 mm nodule right upper lobe on image 139. Left lower lobe consolidation. Central airways are patent. MEDIASTINUM: Dilated pulmonary trunk and ectatic pulmonary arteries. Heart is enlarged. No pericardial effusion. No bulky mediastinal or hilar lymphadenopathy. CORONARY ARTERY CALCIFICATION: Moderate. PLEURA: No pleural effusion. AXILLA: Left axillary lymph node measures 0.9 x 1.8 cm. UPPER ABDOMEN: Bilateral adrenal thickening. 1.2 cm calcified splenic artery aneurysm. OSSEOUS STRUCTURES: No destructive bone lesions. CT/CT chest wo IV con IMPRESSION: Left lower lobe pneumonia. Follow-up until resolution is advised. Pulmonary nodules measuring up to 6 mm. Follow-up chest CT in 6-12 months is advised.
--- NOTE | ~2023-03-15 | XR_ITS ---
EXAMINATION: XR CHEST CLINICAL INFORMATION: Productive cough. COMPARISON: 08/16/2016 chest radiograph. TECHNIQUE: 2 views of the chest were obtained. FINDINGS: No significant abnormality is noted involving the heart, lungs, mediastinum, bony thorax or soft tissues. XR/XR chest 2V IMPRESSION: No acute cardiopulmonary process.
--- NOTE | 2023-03-15 16:30 | ECG_ITS ---
Test Reason : CHEST PAIN Blood Pressure : / mmHG Vent. Rate : 075 BPM Atrial Rate : 000 BPM P-R Int : 000 ms QRS Dur : 064 ms QT Int : 372 ms P-R-T Axes : 000 -26 005 degrees QTc Int : 415 ms Normal sinus bradycardia Low voltage QRS Inferior infarct , age undetermined Abnormal ECG When compared with ECG of 02-JAN-2002 06:59, Inferior infarct is now Present Referred By: Generic ED Physician Electronically Signed By:BRO AHDDAD MD
--- NOTE | 2023-03-15 16:50 | ED_ITS ---
HPI - General Adult General Chief complaint: Chest Pain Stated complaint: Chest pain/diff breathing/sent by Dr Time Seen by Provider: 03/15/23 17:07 Related Data Home Medications Medication Instructions Recorded Confirmed acetaminophen 325 mg capsule 650 mg PO BEDTIME PRN Pain 03/15/23 03/15/23 (Tylenol) ascorbic acid (vitamin C) 500 mg 500 mg PO DAILY 03/15/23 03/15/23 tablet (Vitamin C) furosemide 80 mg tablet 80 mg PO DAILY 03/15/23 03/15/23 gabapentin 600 mg tablet 600 mg PO QID 03/15/23 03/15/23 lisinopril 20 mg tablet 20 mg PO DAILY 03/15/23 03/15/23 metolazone 2.5 mg tablet 2.5 mg PO TUFR 03/15/23 03/15/23 metoprolol succinate 100 mg 100 mg PO DAILY 03/15/23 03/15/23 tablet,extended release 24 hr tramadol 50 mg tablet 50 mg PO TID 03/15/23 03/15/23 Allergies Allergy/AdvReac Type Severity Reaction Status Date / Time PCN Allergy Unknown rash Uncoded 03/15/23 16:50 Penicillin Allergy Unknown rash Uncoded 03/15/23 16:50 PredniSONE Allergy Unknown high dose Uncoded 03/15/23 16:50 gives her rashes prednisone Allergy Unknown rash Uncoded 03/15/23 16:50 PMFSH Past Medical History Medical History Carpal tunnel syndrome, left High blood pressure Nerve pain Surgical History H/O: hysterectomy Social History Social History Household Members: Spouse Housing: Condominium Do you presently have visiting nurse or other home services: No Alcohol intake: former Patient Tobacco Use Status: Current everyday Tobacco user Tobacco use type: Cigarette Cigarette Packs Per Day: 0.5 Cigarettes Per Day: 10.0 service: No Current occupational status: retired Current occupation: left handed Physical Exam ED Vital Signs: Vital Signs - 24 hr 03/15/23 16:50 03/15/23 18:07 03/15/23 19:14 Temperature 97.5 F 98.3 F Pulse Rate 74 89 76 Respiratory Rate 20 16 20 Blood Pressure 88/51 L 102/34 L Pulse Oximetry 83 L 92 Oxygen Delivery Method Room Air Nasal Cannula Oxygen Flow Rate 3 03/15/23 19:17 03/15/23 19:58 03/15/23 21:31 Temperature 97.1 F Pulse Rate 79 87 Respiratory Rate 20 21 H Blood Pressure 111/91 H 121/55 L Pulse Oximetry 93 Oxygen Delivery Method Nasal Cannula Oxygen Flow Rate 3 BMI result Body Mass Index 47.6 Course Course Course Narrative: This is a rapid medical exam: Additional HPI, ROS, PE not included below will be deferred to primary provider. Patient is a 72-year-old female with history of HTN, osteoarthritis presenting to the emergency department with complaint of chest pain for a month, worse last night, and mildly productive cough for the past 2 days. Also felt weak/fatigued last night. Denies fevers. Called PCP earlier today and was referred here. Patient hypoxic and hypotensive in triage. O2 applied in triage via NC. Plan: EKG, labs including blood cultures and lactic, CXR, patient brought directly to room in the main ED Medications Administered Generic Name Dose Route Start Last Admin Trade Name Freq PRN Reason Stop Dose Admin Albuterol/Ipratropium 3 ml 03/16/23 08:00 03/16/23 07:20 Albuterol/Iprat 2.5/0.5mg 3 Ml Ampul.Neb INHALE 3 ml RQ4H WHILE AWAKE LE Administration Ascorbic Acid 500 mg 03/16/23 09:00 03/16/23 09:35 Ascorbic Acid 500 Mg Tablet PO 500 mg DAILY LE Administration Enoxaparin Sodium 40 mg 03/16/23 08:00 03/16/23 09:36 Enoxaparin Sodium 40 Mg/0.4 Ml Syringe SUBCUT 40 mg Q24H LE Administration Furosemide 80 mg 03/16/23 09:00 03/16/23 09:35 Furosemide 40 Mg Tablet PO 80 mg DAILY LE Administration Protocol Gabapentin 600 mg 03/15/23 23:00 03/16/23 09:35 Gabapentin 600 Mg Tablet PO 600 mg QID LE Administration Lisinopril 20 mg 03/16/23 09:00 03/16/23 09:36 Lisinopril 20 Mg Tablet PO 20 mg DAILY LE Administration Protocol Methylprednisolone Sodium Succinate 40 mg 03/16/23 06:00 03/16/23 06:20 Methylprednisolone Sod Succ 40 Mg/Ml Vial IVPUSH 40 mg Q12H LE Administration Metoprolol Succinate 100 mg 03/16/23 09:00 03/16/23 09:35 Metoprolol Succinate Er 100 Mg Tab.Er.24h PO 100 mg DAILY LE Administration Protocol Sodium Chloride 3 ml 03/16/23 00:00 03/16/23 09:37 0.9 % Sodium Chloride Flush 3 Ml Syringe IVFLUSH 3 ml QSHIFT LE Administration Tramadol HCl 50 mg 03/15/23 23:00 03/16/23 09:35 Tramadol Hcl 50 Mg Tablet PO 50 mg TID LE Administration Discontinued Medications Generic Name Dose Route Start Last Admin Trade Name Freq PRN Reason Stop Dose Admin Albuterol Sulfate 2.5 mg 03/15/23 17:36 03/15/23 18:05 Albuterol Sulfate (0.083%) 2.5 Mg/3 Ml Vial.Neb INHALE 03/15/23 17:37 2.5 mg ONCE ONE Administration Albuterol Sulfate 2.5 mg 03/15/23 19:13 03/15/23 19:55 Albuterol Sulfate (0.083%) 2.5 Mg/3 Ml Vial.Neb INHALE 03/15/23 19:14 2.5 mg ONCE ONE Administration Albuterol/Ipratropium 3 ml 03/15/23 17:36 03/15/23 18:05 Albuterol/Iprat 2.5/0.5mg 3 Ml Ampul.Neb INHALE 03/15/23 17:37 3 ml ONCE ONE Administration Azithromycin 500 mg 03/15/23 17:37 03/15/23 18:56 Azithromycin 500 Mg Tablet PO 03/15/23 17:38 500 mg ONCE ONE Administration Ceftriaxone Sodium 1 gm/ 50 mls @ 100 mls/hr 03/15/23 17:37 03/15/23 19:40 Sodium Chloride IV 03/15/23 18:06 Infused ONCE ONE Infusion Sodium Chloride 1,000 mls @ 999 mls/hr 03/15/23 18:00 03/15/23 20:19 Ns IV 03/15/23 19:00 Infused .Q1H1M LE Infusion Sodium Chloride 1,000 mls @ 999 mls/hr 03/15/23 19:15 03/15/23 21:39 Ns IV 03/15/23 20:15 Infused .Q1H1M LE Infusion Methylprednisolone Sodium Succinate 125 mg 03/15/23 17:36 03/15/23 18:56 Methylprednisolone Sod Succ 125 Mg/2 Ml Vial IVPUSH 03/15/23 17:37 125 mg ONCE ONE Administration Medical Decision Making Lab Data 03/16/23 06:23 03/16/23 06:23 Labs: Lab Results 03/15/23 03/15/23 03/15/23 Range/Units 18:08 18:08 18:08 WBC 16.7 H (4.8-10.8) X10*3/uL RBC 4.38 (4.20-5.50) X10*6/uL Hgb 12.8 (12.0-16.0) g/dl Hct 42.1 (37.0-47.0) % MCV 96.1 (80.0-98.0) fL MCH 29.2 (27.0-33.0) pg MCHC 30.4 L (31.0-35.0) g/dl RDW 17.0 H (11.0-16.0) % Plt Count 383 (160-400) X10*3/uL MPV 9.5 (9.4-12.3) fL Immature Gran % (Auto) 0.7 H (0.0-0.4) % Neut % (Auto) 75.2 H (45-73) % Lymph % (Auto) 16.9 L (20-40) % [place] % (Auto) 5.7 (2-11) % Eos % (Auto) 1.1 (0-4) % Baso % (Auto) 0.4 (0-2) % Lymph # (Auto) 2.8 (1.2-4.9) X10*3/uL [place] # (Auto) 1.0 (0.1-1.2) X10*3/uL Eos # (Auto) 0.2 (0.0-0.4) X10*3/uL Baso # (Auto) 0.1 (0.0-0.2) X10*3/uL Abs Immat Gran (auto) 0.11 H (0.00-0.03) X10*3/uL Absolute Neuts (auto) 12.6 H (2.0-8.3) x10*3/uL Absolute Nucleated RBC 0.040 H (0.0-0.012) X10*3/uL Nucleated RBC % (auto) 0.2 (0.0-0.2) /100WBC D-Dimer High Sensitivty NG/ML Sodium (135-145) mmol/L Potassium (3.3-5.1) mmol/L Chloride (96-108) mmol/L Carbon Dioxide (22-29) mmol/L Anion Gap (12-20) BUN (9-16) mg/dL Creatinine (0.5-1.4) mg/dL Estim Creat Clear Calc Estimated GFR Random Glucose (60-115) mg/dL Lactic Acid 1.1 (0.5-2.0) mmol/L Calcium (8.4-10.2) mg/dL Total Bilirubin (0.0-1.0) mg/dL AST (5-31) U/L ALT (0-31) U/L Alkaline Phosphatase (39-117) U/L Troponin I High Sens (<3.5-17.0) ng/L B-Natriuretic Peptide 116 H (<100) pg/mL Total Protein (6.5-8.0) g/dL Albumin (3.5-5.0) g/dL COVID-19 ([facility]) (Negative) COVID-19 Clin Com 03/15/23 03/15/23 03/15/23 Range/Units 18:28 18:28 18:42 WBC (4.8-10.8) X10*3/uL RBC (4.20-5.50) X10*6/uL Hgb (12.0-16.0) g/dl Hct (37.0-47.0) % MCV (80.0-98.0) fL MCH (27.0-33.0) pg MCHC (31.0-35.0) g/dl RDW (11.0-16.0) % Plt Count (160-400) X10*3/uL MPV (9.4-12.3) fL Immature Gran % (Auto) (0.0-0.4) % Neut % (Auto) (45-73) % Lymph % (Auto) (20-40) % [place] % (Auto) (2-11) % Eos % (Auto) (0-4) % Baso % (Auto) (0-2) % Lymph # (Auto) (1.2-4.9) X10*3/uL [place] # (Auto) (0.1-1.2) X10*3/uL Eos # (Auto) (0.0-0.4) X10*3/uL Baso # (Auto) (0.0-0.2) X10*3/uL Abs Immat Gran (auto) (0.00-0.03) X10*3/uL Absolute Neuts (auto) (2.0-8.3) x10*3/uL Absolute Nucleated RBC (0.0-0.012) X10*3/uL Nucleated RBC % (auto) (0.0-0.2) /100WBC D-Dimer High Sensitivty 356 NG/ML Sodium 137 (135-145) mmol/L Potassium 4.4 (3.3-5.1) mmol/L Chloride 96 (96-108) mmol/L Carbon Dioxide 27 (22-29) mmol/L Anion Gap 18 (12-20) BUN 53 H (9-16) mg/dL Creatinine 1.85 H (0.5-1.4) mg/dL Estim Creat Clear Calc 33.7 Estimated GFR 27 Random Glucose 108 (60-115) mg/dL Lactic Acid (0.5-2.0) mmol/L Calcium 10.6 H (8.4-10.2) mg/dL Total Bilirubin 0.3 (0.0-1.0) mg/dL AST 33 H (5-31) U/L ALT 23 (0-31) U/L Alkaline Phosphatase 137 H (39-117) U/L Troponin I High Sens (<3.5-17.0) ng/L B-Natriuretic Peptide (<100) pg/mL Total Protein 7.6 (6.5-8.0) g/dL Albumin 3.3 L (3.5-5.0) g/dL COVID-19 ([facility]) Negative (Negative) COVID-19 Clin Com See Note 03/15/23 Range/Units 18:42 WBC (4.8-10.8) X10*3/uL RBC (4.20-5.50) X10*6/uL Hgb (12.0-16.0) g/dl Hct (37.0-47.0) % MCV (80.0-98.0) fL MCH (27.0-33.0) pg MCHC (31.0-35.0) g/dl RDW (11.0-16.0) % Plt Count (160-400) X10*3/uL MPV (9.4-12.3) fL Immature Gran % (Auto) (0.0-0.4) % Neut % (Auto) (45-73) % Lymph % (Auto) (20-40) % [place] % (Auto) (2-11) % Eos % (Auto) (0-4) % Baso % (Auto) (0-2) % Lymph # (Auto) (1.2-4.9) X10*3/uL [place] # (Auto) (0.1-1.2) X10*3/uL Eos # (Auto) (0.0-0.4) X10*3/uL Baso # (Auto) (0.0-0.2) X10*3/uL Abs Immat Gran (auto) (0.00-0.03) X10*3/uL Absolute Neuts (auto) (2.0-8.3) x10*3/uL Absolute Nucleated RBC (0.0-0.012) X10*3/uL Nucleated RBC % (auto) (0.0-0.2) /100WBC D-Dimer High Sensitivty NG/ML Sodium (135-145) mmol/L Potassium (3.3-5.1) mmol/L Chloride (96-108) mmol/L Carbon Dioxide (22-29) mmol/L Anion Gap (12-20) BUN (9-16) mg/dL Creatinine (0.5-1.4) mg/dL Estim Creat Clear Calc Estimated GFR Random Glucose (60-115) mg/dL Lactic Acid (0.5-2.0) mmol/L Calcium (8.4-10.2) mg/dL Total Bilirubin (0.0-1.0) mg/dL AST (5-31) U/L ALT (0-31) U/L Alkaline Phosphatase (39-117) U/L Troponin I High Sens 4.6 (<3.5-17.0) ng/L B-Natriuretic Peptide (<100) pg/mL Total Protein (6.5-8.0) g/dL Albumin (3.5-5.0) g/dL COVID-19 ([facility]) (Negative) COVID-19 Clin Com Discharge Plan Discharge Clinical Impression: Chest pain, COPD (chronic obstructive pulmonary disease) Patient Disposition: Admitted As Inpatient Interventions: Admission Worksheet (ED) Last Done: 03/16/23 00:11 Discharge Date/Time: 03/16/23 00:12
--- NOTE | 2023-03-15 18:01 | ED_ITS ---
HPI - Chest Pain General Chief Complaint: Chest Pain Stated Complaint: Chest pain/diff breathing/sent by Time Seen by Provider: 03/15/23 17:07 History of Present Illness HPI narrative: Patient is a 72-year-old female with a history of lung cancer status post radiation status post resection presents today with having increasing shortness of breath. History of COPD baseline does not ambulate but is not on oxygen. Patient presented today with having chest pain shortness of breath. Chest pain when she bends down or do any kind of exertion. Patient also has shortness of breath positive coughing congestion upper respiratory symptoms. No fever no chills no diaphoresis. Positive generalized malaise. Positive leg swelling that is been ongoing. Patient has been on Lasix a dose of which is not changed. Related Data Home Medications Medication Instructions Recorded Confirmed furosemide 20 mg tablet 10 mg PO QAM 11/30/20 gabapentin 100 mg capsule 100 mg PO DAILY 11/30/20 lisinopril 2.5 mg tablet 2.5 mg PO DAILY 11/30/20 tramadol 50 mg tablet 50 mg PO DAILY 11/30/20 Previous Rx's Medication Instructions Recorded ketorolac 10 mg tablet 10 mg PO QID PRN pain 5 days #20 06/17/22 tabs Allergies Allergy/AdvReac Type Severity Reaction Status Date / Time PCN Allergy Unknown rash Uncoded 03/15/23 16:50 Penicillin Allergy Unknown rash Uncoded 03/15/23 16:50 PredniSONE Allergy Unknown high dose Uncoded 03/15/23 16:50 gives her rashes prednisone Allergy Unknown rash Uncoded 03/15/23 16:50 Review of Systems Review of Systems: Positive shortness of breath Yes all other systems are reviewed and are negative [facility] Past Medical History Attestation statement: The following information was validated with the patient. Medical History Carpal tunnel syndrome, left High blood pressure Nerve pain Surgical History H/O: hysterectomy Social History Social History (Updated 11/30/20 @ 10:02 by [place] [facility] Alcohol intake: former Smoked in Last 30 Days: Yes Advance Directives: No Advance Directives Information Provided: Yes Current occupational status: retired Current occupation: left handed Physical Exam Vital Signs: Vital Signs: Last Vital Signs Temp 98.3 F 03/15/23 19:14 Pulse 79 03/15/23 19:58 Resp 20 03/15/23 19:58 BP 111/91 H 03/15/23 19:17 Pulse Ox 92 03/15/23 19:14 O2 Del Method Nasal Cannula 03/15/23 19:14 O2 Flow Rate 3 03/15/23 19:14 BMI result Body Mass Index 47.6 Appearance: Alert. Oriented X3. No acute distress. Eyes: Pupils equal, round and reactive to light. ENT: Pharynx normal. Neck: Normal inspection. Neck supple. No lymph nodes noted. No crepitus CVS: Normal heart rate and rhythm. Pulses normal. Normal S1 and S2 Respiratory: Diminished breath sounds bilaterally Abdomen: Soft and nontender. No rigidity. No distention. good BS x4 Skin: Skin warm and dry. Normal skin color. Normal skin turgor. Extremities: 2+ pitting edema in bilateral lower extremity. Neurovascular intact to all extremities. No Lacerations. No Rash Neuro: Oriented X 3. No motor deficit. No sensory deficit. Moving all extermities. No slurred speech Medications Administered Generic Name Dose Route Start Last Admin Trade Name Freq PRN Reason Stop Dose Admin Sodium Chloride 1,000 mls @ 999 mls/hr 03/15/23 19:15 03/15/23 19:56 Ns IV 03/15/23 20:15 999 mls/hr .Q1H1M LE Administration Discontinued Medications Generic Name Dose Route Start Last Admin Trade Name Freq PRN Reason Stop Dose Admin Albuterol Sulfate 2.5 mg 03/15/23 17:36 03/15/23 18:05 Albuterol Sulfate (0.083%) 2.5 Mg/3 Ml Vial.Neb INHALE 03/15/23 17:37 2.5 mg ONCE ONE Administration Albuterol Sulfate 2.5 mg 03/15/23 19:13 03/15/23 19:55 Albuterol Sulfate (0.083%) 2.5 Mg/3 Ml Vial.Neb INHALE 03/15/23 19:14 2.5 mg ONCE ONE Administration Albuterol/Ipratropium 3 ml 03/15/23 17:36 03/15/23 18:05 Albuterol/Iprat 2.5/0.5mg 3 Ml Ampul.Neb INHALE 03/15/23 17:37 3 ml ONCE ONE Administration Azithromycin 500 mg 03/15/23 17:37 03/15/23 18:56 Azithromycin 500 Mg Tablet PO 03/15/23 17:38 500 mg ONCE ONE Administration Ceftriaxone Sodium 1 gm/ 50 mls @ 100 mls/hr 03/15/23 17:37 03/15/23 19:40 Sodium Chloride IV 03/15/23 18:06 Infused ONCE ONE Infusion Sodium Chloride 1,000 mls @ 999 mls/hr 03/15/23 18:00 03/15/23 19:14 Ns IV 03/15/23 19:00 999 mls/hr .Q1H1M LE Administration Methylprednisolone Sodium Succinate 125 mg 03/15/23 17:36 03/15/23 18:56 Methylprednisolone Sod Succ 125 Mg/2 Ml Vial IVPUSH 03/15/23 17:37 125 mg ONCE ONE Administration Medical Decision Making Medical Decision Making MDM Narrative: Positive shortness of breath coughing upper respiratory symptoms also having some chest pain with exertion. Patient has been a lifelong smoker. Previous history of lung cancer status post resection status post radiation treatment. Patient's D-dimer is in the 350 range. Age adjusted is negative. Patient's chest x-ray did not show any focal infiltrate. Patient's BNP is approximately 110, not consistent with congestive heart failure. Cultures were obtained antibiotic was started. Patient was given steroids and neb treatment. O2 sats remain at below 90% at approximately 88-90%. Her lactate is 1.1 there is no evidence for sepsis. Patient's COVID test is negative. Will admit patient for additional treatment. Patient's creatinine is 1.8 this is approximately baseline. Differential Diagnosis COPD, pneumonia, CHF, PE, pneumothorax Admission/Observation Consideration of admission/observation: Escalation of care including admission/observation considered Consult Healthcare Provider Management of the patient was discussed with: Hospitalist Lab Data [facility] Lab Attestation statement: I reviewed the patient's lab results. 03/15/23 18:08 03/15/23 18:42 Labs: Lab Results 03/15/23 03/15/23 03/15/23 Range/Units 18:08 18:08 18:08 WBC 16.7 H (4.8-10.8) X10*3/uL RBC 4.38 (4.20-5.50) X10*6/uL Hgb 12.8 (12.0-16.0) g/dl Hct 42.1 (37.0-47.0) % MCV 96.1 (80.0-98.0) fL MCH 29.2 (27.0-33.0) pg MCHC 30.4 L (31.0-35.0) g/dl RDW 17.0 H (11.0-16.0) % Plt Count 383 (160-400) X10*3/uL MPV 9.5 (9.4-12.3) fL Immature Gran % (Auto) 0.7 H (0.0-0.4) % Neut % (Auto) 75.2 H (45-73) % Lymph % (Auto) 16.9 L (20-40) % [place] % (Auto) 5.7 (2-11) % Eos % (Auto) 1.1 (0-4) % Baso % (Auto) 0.4 (0-2) % Lymph # (Auto) 2.8 (1.2-4.9) X10*3/uL [place] # (Auto) 1.0 (0.1-1.2) X10*3/uL Eos # (Auto) 0.2 (0.0-0.4) X10*3/uL Baso # (Auto) 0.1 (0.0-0.2) X10*3/uL Abs Immat Gran (auto) 0.11 H (0.00-0.03) X10*3/uL Absolute Neuts (auto) 12.6 H (2.0-8.3) x10*3/uL Absolute Nucleated RBC 0.040 H (0.0-0.012) X10*3/uL Nucleated RBC % (auto) 0.2 (0.0-0.2) /100WBC D-Dimer High Sensitivty NG/ML Sodium (135-145) mmol/L Potassium (3.3-5.1) mmol/L Chloride (96-108) mmol/L Carbon Dioxide (22-29) mmol/L Anion Gap (12-20) BUN (9-16) mg/dL Creatinine (0.5-1.4) mg/dL Estim Creat Clear Calc Estimated GFR Random Glucose (60-115) mg/dL Lactic Acid 1.1 (0.5-2.0) mmol/L Calcium (8.4-10.2) mg/dL Total Bilirubin (0.0-1.0) mg/dL AST (5-31) U/L ALT (0-31) U/L Alkaline Phosphatase (39-117) U/L Troponin I High Sens (<3.5-17.0) ng/L B-Natriuretic Peptide 116 H (<100) pg/mL Total Protein (6.5-8.0) g/dL Albumin (3.5-5.0) g/dL COVID-19 ([facility]) (Negative) COVID-19 Clin Com 03/15/23 03/15/23 03/15/23 Range/Units 18:28 18:28 18:42 WBC (4.8-10.8) X10*3/uL RBC (4.20-5.50) X10*6/uL Hgb (12.0-16.0) g/dl Hct (37.0-47.0) % MCV (80.0-98.0) fL MCH (27.0-33.0) pg MCHC (31.0-35.0) g/dl RDW (11.0-16.0) % Plt Count (160-400) X10*3/uL MPV (9.4-12.3) fL Immature Gran % (Auto) (0.0-0.4) % Neut % (Auto) (45-73) % Lymph % (Auto) (20-40) % [place] % (Auto) (2-11) % Eos % (Auto) (0-4) % Baso % (Auto) (0-2) % Lymph # (Auto) (1.2-4.9) X10*3/uL [place] # (Auto) (0.1-1.2) X10*3/uL Eos # (Auto) (0.0-0.4) X10*3/uL Baso # (Auto) (0.0-0.2) X10*3/uL Abs Immat Gran (auto) (0.00-0.03) X10*3/uL Absolute Neuts (auto) (2.0-8.3) x10*3/uL Absolute Nucleated RBC (0.0-0.012) X10*3/uL Nucleated RBC % (auto) (0.0-0.2) /100WBC D-Dimer High Sensitivty 356 NG/ML Sodium 137 (135-145) mmol/L Potassium 4.4 (3.3-5.1) mmol/L Chloride 96 (96-108) mmol/L Carbon Dioxide 27 (22-29) mmol/L Anion Gap 18 (12-20) BUN 53 H (9-16) mg/dL Creatinine 1.85 H (0.5-1.4) mg/dL Estim Creat Clear Calc 33.7 Estimated GFR 27 Random Glucose 108 (60-115) mg/dL Lactic Acid (0.5-2.0) mmol/L Calcium 10.6 H (8.4-10.2) mg/dL Total Bilirubin 0.3 (0.0-1.0) mg/dL AST 33 H (5-31) U/L ALT 23 (0-31) U/L Alkaline Phosphatase 137 H (39-117) U/L Troponin I High Sens (<3.5-17.0) ng/L B-Natriuretic Peptide (<100) pg/mL Total Protein 7.6 (6.5-8.0) g/dL Albumin 3.3 L (3.5-5.0) g/dL COVID-19 ([facility]) Negative (Negative) COVID-19 Clin Com See Note 03/15/23 Range/Units 18:42 WBC (4.8-10.8) X10*3/uL RBC (4.20-5.50) X10*6/uL Hgb (12.0-16.0) g/dl Hct (37.0-47.0) % MCV (80.0-98.0) fL MCH (27.0-33.0) pg MCHC (31.0-35.0) g/dl RDW (11.0-16.0) % Plt Count (160-400) X10*3/uL MPV (9.4-12.3) fL Immature Gran % (Auto) (0.0-0.4) % Neut % (Auto) (45-73) % Lymph % (Auto) (20-40) % [place] % (Auto) (2-11) % Eos % (Auto) (0-4) % Baso % (Auto) (0-2) % Lymph # (Auto) (1.2-4.9) X10*3/uL [place] # (Auto) (0.1-1.2) X10*3/uL Eos # (Auto) (0.0-0.4) X10*3/uL Baso # (Auto) (0.0-0.2) X10*3/uL Abs Immat Gran (auto) (0.00-0.03) X10*3/uL Absolute Neuts (auto) (2.0-8.3) x10*3/uL Absolute Nucleated RBC (0.0-0.012) X10*3/uL Nucleated RBC % (auto) (0.0-0.2) /100WBC D-Dimer High Sensitivty NG/ML Sodium (135-145) mmol/L Potassium (3.3-5.1) mmol/L Chloride (96-108) mmol/L Carbon Dioxide (22-29) mmol/L Anion Gap (12-20) BUN (9-16) mg/dL Creatinine (0.5-1.4) mg/dL Estim Creat Clear Calc Estimated GFR Random Glucose (60-115) mg/dL Lactic Acid (0.5-2.0) mmol/L Calcium (8.4-10.2) mg/dL Total Bilirubin (0.0-1.0) mg/dL AST (5-31) U/L ALT (0-31) U/L Alkaline Phosphatase (39-117) U/L Troponin I High Sens 4.6 (<3.5-17.0) ng/L B-Natriuretic Peptide (<100) pg/mL Total Protein (6.5-8.0) g/dL Albumin (3.5-5.0) g/dL COVID-19 ([facility]) (Negative) COVID-19 Clin Com Independent Interpretation I performed an independent interpretation of an: EKG and Plain X-Ray Interpretation: My interpretation of patient's EKG showed a sinus rhythm heart rate is 75 NH QRS QTC within normal limits there is diffuse T-wave flattening noted. My interpretation of patient's chest x-ray is grossly negative for any acute infiltrate. No pneumothorax no rib fractures Radiology Impression Discussion of test interpretation with radiology: I have reviewed the radiologist's reading. Critical Care Time Critical Care Time Critical Care Time: Yes Total Critical Care Time: 35 Attestation: I have personally provided 35 minutes of critical care time exclusive of time spent on separately billable procedures. Time includes review of lab data, radiology results, discussion with consultants, and monitoring for potential decompensation. Interventions were performed as documented above Discharge Plan Discharge Clinical Impression: Chest pain, COPD (chronic obstructive pulmonary disease) Patient Disposition: Admitted As Inpatient Prescriptions: No Action ketorolac 10 mg tablet 10 mg PO QID PRN (Reason: pain) 5 Days Qty: 20 0RF Rx Instructions: patient received toradol 30mg IM in the ED
[2023-03-15] MEDS: Albuterol Sulfate (0.083%) 2.5 MG/3 ML VIAL.NEB INHALE ×2 (18:05→19:55)
[2023-03-15] MEDS: Albuterol/Iprat 2.5/0.5MG 3 ML AMPUL.NEB INHALE (18:05)
[2023-03-15 18:16] LABS: MANUAL DIFF FLAG NO
[2023-03-15 18:30] LABS: Basophils Absolute Auto 0.1 X10*3/uL (0.0-0.2); Basophils Percent Auto 0.4 % (0-2); Eosinophils Absolute Auto 0.2 X10*3/uL (0.0-0.4); Eosinophils Percent Auto 1.1 % (0-4); Hematocrit 42.1 % (37.0-47.0); Hemoglobin 12.8 g/dl (12.0-16.0); Imm Gran Abs Auto 0.11 X10*3/uL (0.00-0.03); Imm Gran Pct Auto 0.7 % (0.0-0.4); Lymphocytes Absolute Auto 2.8 X10*3/uL (1.2-4.9); Lymphocytes Percent Auto 16.9 % (20-40); Mean Corpuscular HGB Conc 30.4 g/dl (31.0-35.0); Mean Corpuscular Hemoglobin 29.2 pg (27.0-33.0); Mean Corpuscular Volume 96.1 fL (80.0-98.0); Mean Platelet Volume 9.5 fL (9.4-12.3); Monocytes Percent Auto 5.7 % (2-11); NRBC Pct Auto 0.2 /100WBC (0.0-0.2); Neutrophils Absolute Auto 12.6 x10*3/uL (2.0-8.3); Neutrophils Percent Auto 75.2 % (45-73); Platelet Count 383 X10*3/uL (160-400); Red Blood Count 4.38 X10*6/uL (4.20-5.50); White Blood Count 16.7 X10*3/uL (4.8-10.8)
[2023-03-15 18:33] LABS: Lactic Acid 1.1 mmol/L (0.5-2.0)
[2023-03-15 18:43] LABS: B Type Natriuretic Peptide 116 pg/mL (<100)
[2023-03-15 18:51] LABS: D Dimer High Sensitivity 356 NG/ML
[2023-03-15] MEDS: methylPREDNISolone Sod Succ 125 MG/2 ML VIAL IVPUSH (18:56)
[2023-03-15] MEDS: cefTRIAXone sodium 1 GM in 0.9 % Sodium Chloride 50 ML IV (18:56)
[2023-03-15] MEDS: Azithromycin 500 MG TABLET PO (18:56)
[2023-03-15 18:57] LABS: COVID-19 Test Negative (Negative); IDNOW Serial# 08D9AD1C
[2023-03-15 19:10] LABS: Alanine Aminotransferase 23 U/L (0-31); Albumin Level 3.3 g/dL (3.5-5.0); Alkaline Phosphatase 137 U/L (39-117); Anion Gap 18 (12-20); Aspartate Amino Transferase 33 U/L (5-31); Bilirubin Total 0.3 mg/dL (0.0-1.0); Blood Urea Nitrogen 53 mg/dL (9-16); Calcium 10.6 mg/dL (8.4-10.2); Carbon Dioxide 27 mmol/L (22-29); Chloride 96 mmol/L (96-108); Creatinine Clr Calc Pharmacy 33.7; Estimated Glomerular Filt Rate 27; Glucose Random 108 mg/dL (60-115); Potassium 4.4 mmol/L (3.3-5.1); Sodium 137 mmol/L (135-145); Total Protein 7.6 g/dL (6.5-8.0)
[2023-03-15 19:14] LABS: Troponin-I High Sensitivity 4.6 ng/L (<3.5-17.0)
[2023-03-15] MEDS: 0.9 % Sodium Chloride 1,000 ML 999 ML IV ×2 (19:14→19:56)
--- NOTE | 2023-03-15 19:46 | PC.NURSE ---
assumed care of pt at 1900 - pt resting on stretcher. family on bedside. wearing 1L O2 sats 86-89%. pt bumped up to 2L, sats 92-94%. iv abx running, iv fluids started. vital signs updated, call matthews within reach. pt to be admitted for copd exacerbation will CTM
--- NOTE | 2023-03-15 20:48 | PHA.MEDREC ---
Pharmacy Consult ? Medication Reconciliation Pharmacy has completed the medication reconciliation. Spoke with patient to confirm medications. Verified with [facility] gabapentin strength. Tramadol is prescribed prn however patient takes it TID scheduled.
--- NOTE | 2023-03-15 20:57 | PC.NURSE ---
pt situated in bed purewick in place
--- NOTE | 2023-03-15 21:58 | P.HPHOSP_ITS ---
History of Present Illness Date of Service: 03/15/23 Chief Complaint: sob 72-year-old female -past medical history of hypertension, COPD, current smoker comes into the hospital with complaints of shortness breath, cough and increased sputum production x1 day. Patient denies any fever no chills, has chest pain w ith coughing but has also had on and off chest pain for a while being evaluated by her doctors. Currently has no chest pain.no abdominal pain nausea or vomiting, no diarrhea constipation, no urinary symptoms and chronic lower extremity edema Patient noted to be hypoxic in the 70s at home by her son. She is currently on 3 L of oxygen satting 92% On arrival to the ED documented to be 83% on room air, with slightly low blood pressure of 88/51. Blood pressure is now 121/55 Labs are significant for WBC count of 16.7, creatinine of 1.85 with a baseline of around 1 point 1-1.6, COVID-19 negative Chest x-ray unremarkable patient will be admitted for further management Review of Systems Review of Systems: Yes all other systems are reviewed and are negative [facility] Medical History Carpal tunnel syndrome, left High blood pressure Nerve pain Surgical History H/O: hysterectomy Social History Alcohol intake: former Smoked in Last 30 Days: Yes Advance Directives: No Advance Directives Information Provided: Yes Current occupational status: retired Current occupation: left handed Meds Allergies Allergy/AdvReac Type Severity Reaction Status Date / Time PCN Allergy Unknown rash Uncoded 03/15/23 16:50 Penicillin Allergy Unknown rash Uncoded 03/15/23 16:50 PredniSONE Allergy Unknown high dose Uncoded 03/15/23 16:50 gives her rashes prednisone Allergy Unknown rash Uncoded 03/15/23 16:50 Home Medications Medication Instructions Recorded Confirmed Last Taken Type acetaminophen 325 mg capsule 650 mg PO BEDTIME PRN Pain 03/15/23 03/15/23 Unknown History (Tylenol) ascorbic acid (vitamin C) 500 mg 500 mg PO DAILY 03/15/23 03/15/23 Unknown History tablet (Vitamin C) furosemide 80 mg tablet 80 mg PO DAILY 03/15/23 03/15/23 03/15/23 History gabapentin 600 mg tablet 600 mg PO QID 03/15/23 03/15/23 03/15/23 History lisinopril 20 mg tablet 20 mg PO DAILY 03/15/23 03/15/23 03/15/23 History metolazone 2.5 mg tablet 2.5 mg PO TUFR 03/15/23 03/15/23 03/14/23 History metoprolol succinate 100 mg 100 mg PO DAILY 03/15/23 03/15/23 03/15/23 History tablet,extended release 24 hr tramadol 50 mg tablet 50 mg PO TID 03/15/23 03/15/23 03/15/23 History Physical Exam Vital Signs and Narrative: Vital Signs: Last Vital Signs Temp 97.1 F 03/15/23 21:31 Pulse 87 03/15/23 21:31 Resp 21 H 03/15/23 21:31 BP 121/55 L 03/15/23 21:31 Pulse Ox 93 03/15/23 21:31 O2 Del Method Nasal Cannula 03/15/23 21:31 O2 Flow Rate 3 03/15/23 21:31 BMI result Body Mass Index 47.6 Const: General: cooperative and no acute distress Orientation/consciousness: patient oriented x3 Eyes: General: appearance normal, both eyes and all related structures Resp: Other: rhonchi bilaterally, diminished breath sound Effort & Inspection: normal respiratory effort Cardio: Rate: regular rate Rhythm: regular rhythm GI: Palpation (GI): Soft to palpation Auscultation: normal bowel sounds Skin: General skin exam: no rashes or lesions noted Neuro: General: patient oriented x3 Cognition (Neuro): normal cognition Extrem: General: Yes normal to inspection and Yes no pedal edema Results Labs 03/15/23 18:08 03/15/23 18:42 Labs: Laboratory Results - last 24 hr 03/15/23 03/15/23 03/15/23 18:08 18:08 18:08 MCV 96.1 MCH 29.2 MCHC 30.4 L RDW 17.0 H Plt Count 383 MPV 9.5 Immature Gran % (Auto) 0.7 H Neut % (Auto) 75.2 H Lymph % (Auto) 16.9 L [place] % (Auto) 5.7 Eos % (Auto) 1.1 Baso % (Auto) 0.4 Lymph # (Auto) 2.8 [place] # (Auto) 1.0 Eos # (Auto) 0.2 Baso # (Auto) 0.1 Abs Immat Gran (auto) 0.11 H Absolute Neuts (auto) 12.6 H Absolute Nucleated RBC 0.040 H Nucleated RBC % (auto) 0.2 D-Dimer High Sensitivty Anion Gap Estim Creat Clear Calc Estimated GFR Random Glucose Lactic Acid 1.1 Calcium Total Bilirubin AST ALT Alkaline Phosphatase Troponin I High Sens B-Natriuretic Peptide 116 H Total Protein Albumin COVID-19 ([facility]) COVID-[employer] Com 03/15/23 03/15/23 03/15/23 18:28 18:28 18:42 MCV MCH MCHC RDW Plt Count MPV Immature Gran % (Auto) Neut % (Auto) Lymph % (Auto) [place] % (Auto) Eos % (Auto) Baso % (Auto) Lymph # (Auto) [place] # (Auto) Eos # (Auto) Baso # (Auto) Abs Immat Gran (auto) Absolute Neuts (auto) Absolute Nucleated RBC Nucleated RBC % (auto) D-Dimer High Sensitivty 356 Anion Gap 18 Estim Creat Clear Calc 33.7 Estimated GFR 27 Random Glucose 108 Lactic Acid Calcium 10.6 H Total Bilirubin 0.3 AST 33 H ALT 23 Alkaline Phosphatase 137 H Troponin I High Sens B-Natriuretic Peptide Total Protein 7.6 Albumin 3.3 L COVID-19 ([facility]) Negative COVID-[facility] See Note 03/15/23 18:42 MCV MCH MCHC RDW Plt Count MPV Immature Gran % (Auto) Neut % (Auto) Lymph % (Auto) [place] % (Auto) Eos % (Auto) Baso % (Auto) Lymph # (Auto) [place] # (Auto) Eos # (Auto) Baso # (Auto) Abs Immat Gran (auto) Absolute Neuts (auto) Absolute Nucleated RBC Nucleated RBC % (auto) D-Dimer High Sensitivty Anion Gap Estim Creat Clear Calc Estimated GFR Random Glucose Lactic Acid Calcium Total Bilirubin AST ALT Alkaline Phosphatase Troponin I High Sens 4.6 B-Natriuretic Peptide Total Protein Albumin COVID-19 ([facility]) COVID-[employer] [facility] Imaging Radiologist's Impressions: Impressions Chest X-Ray 03/15/23 17:15 IMPRESSION: No acute cardiopulmonary process. Assessment and Plan (1) COPD with acute exacerbation: Status: Acute (2) Acute respiratory failure with hypoxia: Status: Acute Plan 72-year-old female past medical history of hypertension and COPD presents to the hospital complaints of shortness of breath, cough and sputum production, found to be hypoxic # acute respiratory failure with hypoxia - secondary to COPD exacerbation - will treat with IV steroids, DuoNeb p.r.n. as well as scheduled - no evidence of pneumonia, PE less likely - monitor respiratory status - titrate O2 as tolerated # acute COPD exacerbation - negative COVID, no evidence of pneumonia - has increased dyspnea, increased cough and sputum producti - will treat with DuoNeb, steroids - monitor respiratory status # hypertension - stable - continue antihypertensives # chronic lower extremity edema - patient denies any history of CHF - no evidence of pleural effusion or pulmonary congestion on imaging - has indeterminate BNP of 116 - continue home Lasix # chronic pain - continue home analgesics DVT prophylaxis: Lovenox given patient's need for oxygen, patient will require minimum 2 nights inpatient hospital stay to titrate down oxygen and manage COPD Time Spent With Patient Time: Total time managing care of this patient today ____ minutes. Quality Stroke Does the patient have a stroke diagnosis?: No VTE Prior VTE?: No VTE Risk Level:: Medical - moderate - high VTE Device Contraindication: Treatment Not Indicated VTE Drug Contraindication: N/A - Med Ordered
[2023-03-15] MEDS: traMADoL HCL 50 MG TABLET PO (23:15)
[2023-03-15] MEDS: Gabapentin 600 MG TABLET PO (23:15)
--- NOTE | 2023-03-15 23:56 | PC.NURSE ---
nurse to nurse report attempted to imc RN x 2 attempts @23:10 and 23:50. waiting for call back .
[2023-03-16] VITALS (10 sets, daily range): BP systolic 95–122; BP diastolic 55–58; PULSE 75–86; RESP 17–20; TEMP 35.9–37.1; O2SAT 88–95; BMI 45.5
[2023-03-16] MEDS: 0.9 % Sodium Chloride Flush 3 ML SYRINGE IVFLUSH ×3 (01:07→17:00)
[2023-03-16] MEDS: methylPREDNISolone Sod Succ 40 MG/ML VIAL IVPUSH ×2 (06:20→17:00)
[2023-03-16 06:55] LABS: Basophils Percent Auto 0.2 % (0-2); Hematocrit 37.4 % (37.0-47.0); Hemoglobin 11.5 g/dl (12.0-16.0); Imm Gran Abs Auto 0.18 X10*3/uL (0.00-0.03); Imm Gran Pct Auto 0.9 % (0.0-0.4); Lymphocytes Absolute Auto 1.1 X10*3/uL (1.2-4.9); Lymphocytes Percent Auto 5.7 % (20-40); MANUAL DIFF FLAG SCAN; Mean Corpuscular HGB Conc 30.7 g/dl (31.0-35.0); Mean Corpuscular Hemoglobin 29.6 pg (27.0-33.0); Mean Corpuscular Volume 96.4 fL (80.0-98.0); Mean Platelet Volume 9.3 fL (9.4-12.3); Monocytes Absolute Auto 0.5 X10*3/uL (0.1-1.2); Monocytes Percent Auto 2.3 % (2-11); NRBC Pct Auto 0.2 /100WBC (0.0-0.2); Neutrophils Absolute Auto 18.2 x10*3/uL (2.0-8.3); Neutrophils Percent Auto 90.9 % (45-73); Platelet Count 332 X10*3/uL (160-400); Red Blood Count 3.88 X10*6/uL (4.20-5.50); Red Cell Distribution Width 17.1 % (11.0-16.0); SCAN SMEAR FLAG 1
[2023-03-16] MEDS: Albuterol/Iprat 2.5/0.5MG 3 ML AMPUL.NEB INHALE ×4 (07:20→19:46)
[2023-03-16 07:23] LABS: Anion Gap 14 (12-20); Blood Urea Nitrogen 48 mg/dL (9-16); Calcium 10.1 mg/dL (8.4-10.2); Carbon Dioxide 28 mmol/L (22-29); Chloride 101 mmol/L (96-108); Creatinine Clr Calc Pharmacy 37.2; Estimated Glomerular Filt Rate 31; Glucose Random 163 mg/dL (60-115); Potassium 4.7 mmol/L (3.3-5.1); Sodium 138 mmol/L (135-145)
[2023-03-16 08:08] LABS: SLIDE REVIEW VERIFIED
[2023-03-16] MEDS: Furosemide 40 MG TABLET 80 MG PO (09:35)
[2023-03-16] MEDS: Gabapentin 600 MG TABLET PO ×4 (09:35→21:49)
[2023-03-16] MEDS: Ascorbic Acid 500 MG TABLET PO (09:35)
[2023-03-16] MEDS: traMADoL HCL 50 MG TABLET PO ×3 (09:35→21:49)
[2023-03-16] MEDS: Metoprolol Succinate ER 100 MG TAB.ER.24H PO (09:35)
[2023-03-16] MEDS: lisinopriL 20 MG TABLET PO (09:36)
[2023-03-16] MEDS: Enoxaparin Sodium 40 MG/0.4 ML SYRINGE SUBCUT (09:36)
--- NOTE | 2023-03-16 09:39 | MHC.CM.PN ---
IMM 03/16. Pt admitted with COPD and hypoxia. Pt lives at home with her . Pt uses a walker, a scooter, and a wheelchair. D/C plan pending further eval, but home is the goal, possibly with [facility] and new [facility]. HCP created and now on file, she appointed son Aleks who was present. Pts son will transport. PCP: Dr. Luigi Pfeiffer vax: x 4
--- NOTE | 2023-03-16 13:42 | HO.PM.IMPN ---
Subjective Subjective Date of Service: 03/16/23 Interval History: Complaining of persistent shortness of breath and productive cough does not know the color of phlegm symptoms going on for some time denies fever, no chills, no recent weight loss, no lower extremity swelling, provided history of lung cancer status post radiation treatment follows at [facility] with negative CT chest. Review of Systems All other system reviewed and negative Physical Exam Vital Signs: Vital Signs: Last Vital Signs Temp 97.3 F 03/16/23 11:25 Pulse 84 03/16/23 11:25 Resp 18 03/16/23 11:25 BP 101/55 L 03/16/23 11:25 Pulse Ox 95 03/16/23 11:25 O2 Del Method Nasal Cannula 03/16/23 11:25 O2 Flow Rate 2 03/16/23 11:25 BMI result Body Mass Index 45.5 Const: Other: General awake alert x3, in no acute distress. Neck supple no JVD. CVS regular rate rhythm, Respiratory lungs diminished breath sound few expiratory wheeze no use of accessory muscles, no respiratory distress i. Gastrointestinal abdomen soft, nontender, bowel sounds audible, no guarding , no rigidity. Extremities no edema. Neuro nonfocal Skin no rash Psych appropriate affect Objective Data Active Medications Acetaminophen (Acetaminophen 325 Mg Tablet) 650 mg PO Q6H PRN PRN Reason: Pain, Mild (Pain Scale 1-3) Albuterol/Ipratropium (Albuterol/Iprat 2.5/0.5mg 3 Ml Ampul.Neb) 3 ml INHALE RQ4H PRN PRN Reason: Shortness of Breath/Wheezing Albuterol/Ipratropium (Albuterol/Iprat 2.5/0.5mg 3 Ml Ampul.Neb) 3 ml INHALE RQ4H WHILE AWAKE [facility] Last Admin: 03/16/23 11:25 Dose: 3 ml Documented By: RADHA Ascorbic Acid (Ascorbic Acid 500 Mg Tablet) 500 mg PO DAILY [facility] Last Admin: 03/16/23 09:35 Dose: 500 mg Documented By: MIROSLAVA Docusate Sodium (Docusate Sodium 100 Mg Capsule) 100 mg PO DAILY PRN PRN Reason: Constipation Enoxaparin Sodium (Enoxaparin Sodium 40 Mg/0.4 Ml Syringe) 40 mg SUBCUT Q24H [facility] Last Admin: 03/16/23 09:36 Dose: 40 mg Documented By: MIROSLAVA Furosemide (Furosemide 40 Mg Tablet) 80 mg PO DAILY [facility]; Protocol Last Admin: 03/16/23 09:35 Dose: 80 mg Documented By: MIROSLAVA Gabapentin (Gabapentin 600 Mg Tablet) 600 mg PO QID [facility] Last Admin: 03/16/23 09:35 Dose: 600 mg Documented By: MIROSLAVA Lisinopril (Lisinopril 20 Mg Tablet) 20 mg PO DAILY [facility]; Protocol Last Admin: 03/16/23 09:36 Dose: 20 mg Documented By: MIROSLAVA Methylprednisolone Sodium Succinate (Methylprednisolone Sod Succ 40 Mg/Ml Vial) 40 mg IVPUSH Q12H [facility] Last Admin: 03/16/23 06:20 Dose: 40 mg Documented By: NIGEL Metolazone (Metolazone 2.5 Mg Tablet) [facility] Metoprolol Succinate (Metoprolol Succinate Er 100 Mg Tab.Er.24h) 100 mg PO DAILY [facility]; Protocol Last Admin: 03/16/23 09:35 Dose: 100 mg Documented By: MIROSLAVA Ondansetron HCl (Ondansetron Hcl 4 Mg/2 Ml Vial) 4 mg IVPUSH Q8H PRN PRN Reason: Nausea and Vomiting Sodium Chloride (0.9 % Sodium Chloride Flush 3 Ml Syringe) 3 ml IVFLUSH QSHIFT [facility] Last Admin: 03/16/23 09:37 Dose: 3 ml Documented By: MIROSLAVA Tramadol HCl (Tramadol Hcl 50 Mg Tablet) 50 mg PO TID [facility] Last Admin: 03/16/23 09:35 Dose: 50 mg Documented By: MIROSLAVA Labs 03/16/23 06:23 03/16/23 06:23 Labs: Laboratory Results - last 24 hr 03/15/23 03/15/23 03/15/23 18:08 18:08 18:08 MCV 96.1 MCH 29.2 MCHC 30.4 L RDW 17.0 H Plt Count 383 MPV 9.5 Immature Gran % (Auto) 0.7 H Neut % (Auto) 75.2 H Lymph % (Auto) 16.9 L [place] % (Auto) 5.7 Eos % (Auto) 1.1 Baso % (Auto) 0.4 Lymph # (Auto) 2.8 [place] # (Auto) 1.0 Eos # (Auto) 0.2 Baso # (Auto) 0.1 Abs Immat Gran (auto) 0.11 H Absolute Neuts (auto) 12.6 H Absolute Nucleated RBC 0.040 H Nucleated RBC % (auto) 0.2 Smear Tech's Comments D-Dimer High Sensitivty Anion Gap Estim Creat Clear Calc Estimated GFR Random Glucose Lactic Acid 1.1 Calcium Total Bilirubin AST ALT Alkaline Phosphatase Troponin I High Sens B-Natriuretic Peptide 116 H Total Protein Albumin COVID-19 ([facility]) COVID-19 Clin Com 03/15/23 03/15/23 03/15/23 18:28 18:28 18:42 MCV MCH MCHC RDW Plt Count MPV Immature Gran % (Auto) Neut % (Auto) Lymph % (Auto) [place] % (Auto) Eos % (Auto) Baso % (Auto) Lymph # (Auto) [place] # (Auto) Eos # (Auto) Baso # (Auto) Abs Immat Gran (auto) Absolute Neuts (auto) Absolute Nucleated RBC Nucleated RBC % (auto) Smear Tech's Comments D-Dimer High Sensitivty 356 Anion Gap 18 Estim Creat Clear Calc 33.7 Estimated GFR 27 Random Glucose 108 Lactic Acid Calcium 10.6 H Total Bilirubin 0.3 AST 33 H ALT 23 Alkaline Phosphatase 137 H Troponin I High Sens B-Natriuretic Peptide Total Protein 7.6 Albumin 3.3 L COVID-19 ([facility]) Negative COVID-19 Clin Com See Note 03/15/23 03/16/23 03/16/23 18:42 06:23 06:23 MCV 96.4 MCH 29.6 MCHC 30.7 L RDW 17.1 H Plt Count 332 MPV 9.3 L Immature Gran % (Auto) 0.9 H Neut % (Auto) 90.9 H Lymph % (Auto) 5.7 L [place] % (Auto) 2.3 Eos % (Auto) 0.0 Baso % (Auto) 0.2 Lymph # (Auto) 1.1 L [place] # (Auto) 0.5 Eos # (Auto) 0.0 Baso # (Auto) 0.0 Abs Immat Gran (auto) 0.18 H Absolute Neuts (auto) 18.2 H Absolute Nucleated RBC 0.040 H Nucleated RBC % (auto) 0.2 Smear Tech's Comments VERIFIED D-Dimer High Sensitivty Anion Gap 14 Estim Creat Clear Calc 37.2 Estimated GFR 31 Random Glucose 163 H Lactic Acid Calcium 10.1 Total Bilirubin AST ALT Alkaline Phosphatase Troponin I High Sens 4.6 B-Natriuretic Peptide Total Protein Albumin COVID-19 ([facility]) COVID-19 Clin Com Assessment and Plan (1) Acute respiratory failure with hypoxia: Status: Acute (2) COPD with acute exacerbation: Status: Acute Plan 72-year-old female past medical history of hypertension and COPD presents to the hospital complaints of shortness of breath, cough and sputum production,? found to be hypoxic #? acute respiratory failure with hypoxia? secondary to acute COPD exacerbation -? will treat with IV steroids, DuoNeb p.r.n. as well as scheduled -? no evidence of pneumonia,? PE less likely, negative COVID -? history of lung CA, will consult pulmonology and obtain CT chest -? titrate O2 as tolerated, patient not on home oxygen will need home O2 eval prior to discharge. # acute kidney injury likely prerenal improving with IV fluids. Will hold metolazone. #? hypertension -? stable,? continue lisinopril and metoprolol. #? chronic lower extremity edema - ? patient denies any history of CHF -? no evidence of pleural effusion or pulmonary congestion on imaging -? has indeterminate BNP 116 -? continue home Lasix and metolazone 2 and Fridays # chronic pain -? continue home analgesics ?DVT prophylaxis:? Lovenox ?given patient's need for oxygen, and further evaluation for hypoxia, patient will need continued inpatient hospitalization Time Spent With Patient Time: Total time managing care of this patient today ____ minutes. Quality Stroke Does the patient have a stroke diagnosis?: No VTE Prior VTE?: No VTE Risk Level:: Medical - moderate - high VTE Device Contraindication: Treatment Not Indicated VTE Drug Contraindication: N/A - Med Ordered
[2023-03-17] MEDS: methylPREDNISolone Sod Succ 40 MG/ML VIAL IVPUSH (06:12)
[2023-03-17 07:12] VITALS: PULSE 70; RESP 19; O2SAT 91
[2023-03-17] MEDS: Albuterol/Iprat 2.5/0.5MG 3 ML AMPUL.NEB INHALE ×4 (07:12→19:32)
[2023-03-17 07:18] VITALS: BP 113/56; PULSE 58; RESP 20; TEMP 36.5; O2SAT 90
[2023-03-17] MEDS: Gabapentin 600 MG TABLET PO ×4 (08:32→20:58)
[2023-03-17] MEDS: Metoprolol Succinate ER 100 MG TAB.ER.24H PO (08:32)
[2023-03-17] MEDS: 0.9 % Sodium Chloride Flush 3 ML SYRINGE IVFLUSH ×3 (08:32→20:59)
[2023-03-17] MEDS: Ascorbic Acid 500 MG TABLET PO (08:33)
[2023-03-17] MEDS: traMADoL HCL 50 MG TABLET PO ×3 (08:33→20:58)
[2023-03-17] MEDS: Enoxaparin Sodium 40 MG/0.4 ML SYRINGE SUBCUT (08:35)
--- NOTE | 2023-03-17 10:16 | MHC.CM.PN ---
EMR REVIEWED, PER HOSPITALIST PT REMAINS SOB, WBC INCREASING, NO PLAN FOR D/C AT THIS TIME, CM WILL CONT TO FOLLOW D/C NEEDS.
[2023-03-17] MEDS: methylPREDNISolone Sod Succ 40 MG/ML VIAL 60 MG IVPUSH ×2 (10:52→16:55)
[2023-03-17 11:27] VITALS: PULSE 68; RESP 20; O2SAT 91
--- NOTE | 2023-03-17 13:00 | PM.CNPUL ---
History of Present Illness History of Present Illness Consult date: 03/17/23 Chief complaint: Copd,Hypoxic Narrative: This is it this is an inpatient pulmonary consultation. The patient is a 72-year-old woman with a known history of COPD in addition to lung cancer status post radiation. Apparently she had been followed closely by Oncology at [facility]. Do not have all the details but she did receive radiation not sure about surgery for a left upper lobe malignant process. Apparently she had a recurrent pulmonary nodule in that area that is being monitored closely. The last time she had a CT scan was back in October 2022 which I did personally reviewed. The patient now has developed worsening respiratory symptoms. She has been coughing more having chest tightness. She was evaluated by EMS and was noted to be significantly hypoxic down to the 70s. She was admitted to the [facility]. She was placed on oxygen with good response. The patient had a repeat CT scan of the chest that I personally reviewed and appears that she still has the nodular density in the left upper lobe. She also has moderate degree of emphysema and now what appears to be a bandlike opacity in the left lower lobe which is likely a pneumonia. Postobstructive pneumonia is also in the differential specially with history. She therefore, the patient is going to start antibiotics. She is already on prednisone for COPD exacerbation and again the oxygen and breathing treatments. Will go ahead and provide with flutter valve for chest PT she can use and also will request a respiratory viral panel to try to find the pathogen. Once the patient is better she needs to be set up with Pulmonary. The patient should have a repeat CT scan to make sure there is resolution of the process. If the patient worsens or the process does not clear a bronchoscopy may be warranted. Review of Systems Constitutional: Constitutional: Reports fatigue and Denies fever(s) ENT: Denies epistaxis Cardiovascular: Cardiovascular: Denies chest pain and Reports dyspnea Respiratory: Respiratory: Reports as per HPI, Reports chest congestion, Reports cough, Reports dyspnea and Reports wheezing Gastrointestinal: Gastrointestinal: Reports no additional gastrointestinal complaints Musculoskeletal: Musculoskeletal: Reports no additional musculoskeletal complaints Neurologic: Reports system reviewed and no additional complaints, except as documented Endocrine: Endocrine: Reports fatigue Hematologic/Lymphatic: Hematologic/Lymphatic: Denies easy bleeding, Denies easy bruising and Denies lymphadenopathy Allergic/Immunologic: Allergic/Immunologic: Reports wheezing PMFSH Past Medical History Medical History (Updated 03/17/23 @ 13:04 by Romulo Torres MD) Carpal tunnel syndrome, left High blood pressure Lung cancer Nerve pain Pneumonia Surgical History Surgical History H/O: hysterectomy Social History Social History Household Members: Spouse Housing: Condominium Do you presently have visiting nurse or other home services: No Alcohol intake: former Patient Tobacco Use Status: Current everyday Tobacco user Tobacco use type: Cigarette Cigarette Packs Per Day: 0.5 Cigarettes Per Day: 10.0 service: No Current occupational status: retired Current occupation: left handed Meds Allergies Allergy/AdvReac Type Severity Reaction Status Date / Time PCN Allergy Unknown rash Uncoded 03/15/23 16:50 Penicillin Allergy Unknown rash Uncoded 03/15/23 16:50 PredniSONE Allergy Unknown high dose Uncoded 03/15/23 16:50 gives her rashes prednisone Allergy Unknown rash Uncoded 03/15/23 16:50 Active Medications: Current Medications Acetaminophen (Acetaminophen 325 Mg Tablet) 650 mg PO Q6H PRN PRN Reason: Pain, Mild (Pain Scale 1-3) Albuterol/Ipratropium (Albuterol/Iprat 2.5/0.5mg 3 Ml Ampul.Neb) 3 ml INHALE RQ4H PRN PRN Reason: Shortness of Breath/Wheezing Albuterol/Ipratropium (Albuterol/Iprat 2.5/0.5mg 3 Ml Ampul.Neb) 3 ml INHALE RQ4H WHILE AWAKE LE Last Admin: 03/17/23 11:25 Dose: 3 ml Ascorbic Acid (Ascorbic Acid 500 Mg Tablet) 500 mg PO DAILY [facility] Last Admin: 03/17/23 08:33 Dose: 500 mg Docusate Sodium (Docusate Sodium 100 Mg Capsule) 100 mg PO DAILY PRN PRN Reason: Constipation Enoxaparin Sodium (Enoxaparin Sodium 40 Mg/0.4 Ml Syringe) 40 mg SUBCUT Q24H [facility] Last Admin: 03/17/23 08:35 Dose: 40 mg Furosemide (Furosemide 40 Mg Tablet) 80 mg PO DAILY [facility]; Protocol Last Admin: 03/17/23 08:35 Dose: Not Given Gabapentin (Gabapentin 600 Mg Tablet) 600 mg PO QID [facility] Last Admin: 03/17/23 08:32 Dose: 600 mg Lisinopril (Lisinopril 20 Mg Tablet) 20 mg PO DAILY [facility]; Protocol Last Admin: 03/17/23 08:35 Dose: Not Given Methylprednisolone Sodium Succinate (Methylprednisolone Sod Succ 40 Mg/Ml Vial) 60 mg IVPUSH Q8H [facility] Last Admin: 03/17/23 10:52 Dose: 60 mg Metoprolol Succinate (Metoprolol Succinate Er 100 Mg Tab.Er.24h) 100 mg PO DAILY [facility]; Protocol Last Admin: 03/17/23 08:32 Dose: 100 mg Ondansetron HCl (Ondansetron Hcl 4 Mg/2 Ml Vial) 4 mg IVPUSH Q8H PRN PRN Reason: Nausea and Vomiting Sodium Chloride (0.9 % Sodium Chloride Flush 3 Ml Syringe) 3 ml IVFLUSH QSHIFT [facility] Last Admin: 03/17/23 08:32 Dose: 3 ml Tramadol HCl (Tramadol Hcl 50 Mg Tablet) 50 mg PO TID [facility] Last Admin: 03/17/23 08:33 Dose: 50 mg Home Medications Medication Instructions Recorded Confirmed Last Taken Type acetaminophen 325 mg capsule 650 mg PO BEDTIME PRN Pain 03/15/23 03/15/23 Unknown History (Tylenol) ascorbic acid (vitamin C) 500 mg 500 mg PO DAILY 03/15/23 03/15/23 Unknown History tablet (Vitamin C) furosemide 80 mg tablet 80 mg PO DAILY 03/15/23 03/15/23 03/15/23 History gabapentin 600 mg tablet 600 mg PO QID 03/15/23 03/15/23 03/15/23 History lisinopril 20 mg tablet 20 mg PO DAILY 03/15/23 03/15/23 03/15/23 History metolazone 2.5 mg tablet 2.5 mg PO TUFR 03/15/23 03/15/23 03/14/23 History metoprolol succinate 100 mg 100 mg PO DAILY 03/15/23 03/15/23 03/15/23 History tablet,extended release 24 hr tramadol 50 mg tablet 50 mg PO TID 03/15/23 03/15/23 03/15/23 History Physical Exam Vital Signs: Vital Signs: Last Vital Signs Temp 97.7 F 03/17/23 07:18 Pulse 68 03/17/23 11:27 Resp 20 03/17/23 11:27 BP 113/56 L 03/17/23 07:18 Pulse Ox 90 L 03/17/23 07:18 O2 Del Method Nasal Cannula 03/17/23 07:18 O2 Flow Rate 4 03/17/23 07:18 BMI result Body Mass Index 45.5 Const: Other: General awake alert x3, in no acute distress. Neck supple no JVD. CVS regular rate rhythm, Respiratory lungs diminished breath sound few expiratory wheeze no use of accessory muscles, no respiratory distress i. Gastrointestinal abdomen soft, nontender, bowel sounds audible, no guarding , no rigidity. Extremities no edema. Neuro nonfocal Skin no rash Psych appropriate affect Results Laboratory Findings 03/16/23 06:23 03/16/23 06:23 Abnormal lab findings: Abnormal Labs 03/15/23 03/15/23 03/15/23 18:08 18:08 18:42 WBC 16.7 H RBC Hgb MCHC 30.4 L RDW 17.0 H MPV Immature Gran % (Auto) 0.7 H Neut % (Auto) 75.2 H Lymph % (Auto) 16.9 L Lymph # (Auto) Abs Immat Gran (auto) 0.11 H Absolute Neuts (auto) 12.6 H Absolute Nucleated RBC 0.040 H BUN 53 H Creatinine 1.85 H Random Glucose Calcium 10.6 H AST 33 H Alkaline Phosphatase 137 H B-Natriuretic Peptide 116 H Albumin 3.3 L 03/16/23 03/16/23 06:23 06:23 WBC 20.0 H RBC 3.88 L Hgb 11.5 L MCHC 30.7 L RDW 17.1 H MPV 9.3 L Immature Gran % (Auto) 0.9 H Neut % (Auto) 90.9 H Lymph % (Auto) 5.7 L Lymph # (Auto) 1.1 L Abs Immat Gran (auto) 0.18 H Absolute Neuts (auto) 18.2 H Absolute Nucleated RBC 0.040 H BUN 48 H Creatinine 1.63 H Random Glucose 163 H Calcium AST Alkaline Phosphatase B-Natriuretic Peptide Albumin Microbiology: Microbiology 03/15/23 18:28 Blood - Venous Blood Culture - Preliminary No growth after 24 hours. 03/15/23 18:08 Blood - Venous Blood Culture - Preliminary No growth after 24 hours. Assessment and Plan (1) Acute respiratory failure with hypoxia: Status: Acute (2) COPD with acute exacerbation: Status: Acute (3) Pneumonia: Status: Acute (4) Lung cancer: Status: Acute Plan Start Abx for CAP increase solumedrol 60mg Q8 CPT with aerobika nebs q4 continue oxygen to keep pox>90% respiratory viral panel Will need outpt pulmonary follow up Time Spent With Patient Time: Total time managing care of this patient today ____ minutes. Procedures Date of Service Date of Service: 03/17/23
[2023-03-17 14:50] VITALS: PULSE 68; RESP 20; O2SAT 90
--- NOTE | 2023-03-17 14:52 | P.PNIM_ITS ---
Subjective Subjective Date of Service: 03/17/23 Interval History: Complaining of persistent shortness of breath, productive cough, denies fever, chills, no change since yesterday, denies nausea, vomiting, tolerating diet, no other acute events overnight, no urinary symptoms Review of Systems All other system reviewed and negative. Physical Exam Vital Signs: Vital Signs: Last Vital Signs Temp 97.7 F 03/17/23 07:18 Pulse 68 03/17/23 14:50 Resp 20 03/17/23 14:50 BP 113/56 L 03/17/23 07:18 Pulse Ox 90 L 03/17/23 07:18 O2 Del Method Nasal Cannula 03/17/23 07:18 O2 Flow Rate 4 03/17/23 07:18 BMI result Body Mass Index 45.5 Const: Other: General awake aler t x3, in no acute distress.? Neck? s upple no JVD. CVS? regular rate rhyt hm, Respiratory belén ngs diminished bell ath sound few expi ratory wheeze, no use of accessory m uscles, no respira tory distress. Gas trointestinal abdo men soft, non tend er, bowel sounds a udible, no guardin g , no rigidity. E xtremities no? hillary ma. Neuro non foca l Skin no rash Psy ch appropriate aff ect Objective Data Active Medications Acetaminophen (Acetaminophen 325 Mg Tablet) 650 mg PO Q6H PRN PRN Reason: Pain, Mild (Pain Scale 1-3) Albuterol/Ipratropium (Albuterol/Iprat 2.5/0.5mg 3 Ml Ampul.Neb) 3 ml INHALE RQ4H PRN PRN Reason: Shortness of Breath/Wheezing Albuterol/Ipratropium (Albuterol/Iprat 2.5/0.5mg 3 Ml Ampul.Neb) 3 ml INHALE RQ4H WHILE AWAKE [facility] Last Admin: 03/17/23 14:50 Dose: 3 ml Documented By: MAYELIN Ascorbic Acid (Ascorbic Acid 500 Mg Tablet) 500 mg PO DAILY [facility] Last Admin: 03/17/23 08:33 Dose: 500 mg Documented By: MIKE Docusate Sodium (Docusate Sodium 100 Mg Capsule) 100 mg PO DAILY PRN PRN Reason: Constipation Enoxaparin Sodium (Enoxaparin Sodium 40 Mg/0.4 Ml Syringe) 40 mg SUBCUT Q24H [facility] Last Admin: 03/17/23 08:35 Dose: 40 mg Documented By: MIKE Furosemide (Furosemide 40 Mg Tablet) 80 mg PO DAILY [facility]; Protocol Last Admin: 03/17/23 08:35 Dose: Not Given Documented By: MIKE Non-Admin Reason: Physician Held Med Gabapentin (Gabapentin 600 Mg Tablet) 600 mg PO QID [facility] Last Admin: 03/17/23 14:44 Dose: 600 mg Documented By: MIKE Lisinopril (Lisinopril 20 Mg Tablet) 20 mg PO DAILY [facility]; Protocol Last Admin: 03/17/23 08:35 Dose: Not Given Documented By: MIKE Non-Admin Reason: Physician Held Med Methylprednisolone Sodium Succinate (Methylprednisolone Sod Succ 40 Mg/Ml Vial) 60 mg IVPUSH Q8H [facility] Last Admin: 03/17/23 10:52 Dose: 60 mg Documented By: MIKE Metoprolol Succinate (Metoprolol Succinate Er 100 Mg Tab.Er.24h) 100 mg PO DAILY [facility]; Protocol Last Admin: 03/17/23 08:32 Dose: 100 mg Documented By: MIKE Ondansetron HCl (Ondansetron Hcl 4 Mg/2 Ml Vial) 4 mg IVPUSH Q8H PRN PRN Reason: Nausea and Vomiting Sodium Chloride (0.9 % Sodium Chloride Flush 3 Ml Syringe) 3 ml IVFLUSH QSHIFT [facility] Last Admin: 03/17/23 08:32 Dose: 3 ml Documented By: MIKE Tramadol HCl (Tramadol Hcl 50 Mg Tablet) 50 mg PO TID [facility] Last Admin: 03/17/23 14:44 Dose: 50 mg Documented By: MIKE Labs 03/16/23 06:23 03/16/23 06:23 Microbiology Microbiology Results: Microbiology 03/15/23 18:28 Blood Culture - Preliminary Blood - Venous No growth after 24 hours. 03/15/23 18:08 Blood Culture - Preliminary Blood - Venous No growth after 24 hours. Assessment and Plan (1) Acute respiratory failure with hypoxia: Status: Acute (2) COPD with acute exacerbation: Status: Acute Plan 72-year-old female past medical history of hypertension and COPD presents to the hospital complaints of shortness of breath, cough and sputum production,? found to be hypoxic #? acute respiratory failure with hypoxia? secondary to acute COPD exacerbation and left lower lobe pneumonia Persistent shortness of breath and cough CT chest showed left lower lobe pneumonia, moderate centrilobular emphysema and scarring left apex and 6 mm pulmonary nodule -? will start IV ceftriaxone and azithromycin since noted to have pneumonia on CT chest Seen by Dr. Torres he recommended to increase IV steroids to 60 q.8 hours , respiratory viral panel ordered, outpatient Pulmonary follow-up continue DuoNeb p.r.n. as well as scheduled -? negative COVID, elevated WBC due to steroids -? history of lung CA, recommend continued outpatient follow-up with Oncology -? titrate O2 as tolerated, patient not on home oxygen will need home O2 eval prior to discharge. # acute kidney injury likely prerenal , creatinine trending down, continue to hold metolazone follow BMP #? hypertension -? stable,? continue lisinopril and metoprolol. #? chronic lower extremity edema - ? patient denies any history of CHF -? no evidence of pleural effusion or pulmonary congestion on imaging -? has indeterminate BNP 116 -? continue home Lasix # chronic pain -? continue home analgesics ?DVT prophylaxis:? Lovenox ?given patient's need for IV antibiotics for pneumonia and oxygen, and further evaluation for hypoxia, patient will need continued inpatient hospitalization Time Spent With Patient Time: Total time managing care of this patient today ____ minutes. Quality Stroke Does the patient have a stroke diagnosis?: No VTE Prior VTE?: No VTE Risk Level:: Medical - moderate - high VTE Device Contraindication: Treatment Not Indicated VTE Drug Contraindication: N/A - Med Ordered
[2023-03-17 15:04] VITALS: BP 114/66; PULSE 74; RESP 17; TEMP 36.4; O2SAT 91
[2023-03-17 15:39] LABS: Adenovirus PCR Not Detected (Not Detect.); Bordetella parapertussis PCR Not Detected (Not Detect.); Bordetella pertussis PCR Not Detected (Not Detect.); Chlamydia pneumoniae PCR Not Detected (Not Detect.); Coronavirus 229E PCR Not Detected (Not Detect.); Coronavirus HKU1 PCR Not Detected (Not Detect.); Coronavirus NL63 PCR Not Detected (Not Detect.); Coronavirus OC43 PCR Not Detected (Not Detect.)
[2023-03-17 15:40] LABS: Human metapneumovirus PCR Not Detected (Not Detect.); Influenza A PCR Not Detected (Not Detect.); Influenza B PCR Not Detected (Not Detect.); Mycoplasma pneumoniae PCR Not Detected (Not Detect.); Parainfluenza 1 PCR Not Detected (Not Detect.); Parainfluenza 2 PCR Not Detected (Not Detect.); Parainfluenza 3 PCR Not Detected (Not Detect.); Parainfluenza 4 PCR Not Detected (Not Detect.); RSV PCR Not Detected (Not Detect.); Rhino/Enterovirus PCR Not Detected (Not Detect.); SARS-CoV-2 PCR Not Detected (Not Detect.)
[2023-03-17] MEDS: cefTRIAXone sodium 1 GM in 0.9 % Sodium Chloride 50 ML IV (16:54)
[2023-03-17] MEDS: Azithromycin 500 MG in 0.9 % Sodium Chloride 250 ML 125 MG IV (17:59)
[2023-03-17 19:33] VITALS: PULSE 74; RESP 17; O2SAT 92
[2023-03-18] VITALS (10 sets, daily range): BP systolic 90–111; BP diastolic 52–64; PULSE 60–83; RESP 16–20; TEMP 36.4–36.7; O2SAT 90–97
[2023-03-18] MEDS: methylPREDNISolone Sod Succ 40 MG/ML VIAL 60 MG IVPUSH ×4 (02:23→23:34)
[2023-03-18 06:41] LABS: Anion Gap 12 (12-20); Blood Urea Nitrogen 62 mg/dL (9-16); Calcium 9.7 mg/dL (8.4-10.2); Carbon Dioxide 30 mmol/L (22-29); Chloride 103 mmol/L (96-108); Creatinine Clr Calc Pharmacy 51.5; Estimated Glomerular Filt Rate 45; Glucose Random 129 mg/dL (60-115); Sodium 140 mmol/L (135-145)
[2023-03-18] MEDS: Albuterol/Iprat 2.5/0.5MG 3 ML AMPUL.NEB INHALE ×4 (08:57→19:24)
[2023-03-18] MEDS: Gabapentin 600 MG TABLET PO ×4 (09:14→20:26)
[2023-03-18] MEDS: traMADoL HCL 50 MG TABLET PO ×3 (09:14→20:26)
[2023-03-18] MEDS: 0.9 % Sodium Chloride Flush 3 ML SYRINGE IVFLUSH ×3 (09:15→23:29)
[2023-03-18] MEDS: Metoprolol Succinate ER 100 MG TAB.ER.24H PO (09:15)
[2023-03-18] MEDS: Enoxaparin Sodium 40 MG/0.4 ML SYRINGE SUBCUT (09:15)
[2023-03-18] MEDS: Ascorbic Acid 500 MG TABLET PO (09:15)
--- NOTE | 2023-03-18 12:21 | HO.PM.IMPN ---
Subjective Subjective Date of Service: 03/18/23 Interval History: Feeling better this morning less shortness of breath and cough, denies fever chills no other acute issues overnight tolerating diet with no nausea no vomiting no abdominal pain. Review of Systems All other system reviewed and negative Physical Exam Vital Signs: Vital Signs: Last Vital Signs Temp 98.0 F 03/18/23 11:14 Pulse 83 03/18/23 11:31 Resp 16 03/18/23 11:31 BP 104/56 L 03/18/23 11:14 Pulse Ox 92 03/18/23 11:14 O2 Del Method Nasal Cannula 03/18/23 11:14 O2 Flow Rate 4 03/18/23 11:14 BMI result Body Mass Index 45.5 Const: Other: General awake alert x3, in no acute distress.? Neck? supple no JVD. CVS? regular rate rhythm, Respiratory lungs less diminished breath sound, few expiratory wheeze no use of accessory muscles, no respiratory distress i. Gastrointestinal abdomen soft, nontender, bowel sounds audible, no guarding , no rigidity. Extremities no? edema. Neuro nonfocal Skin no rash Psych appropriate affect Objective Data Active Medications Acetaminophen (Acetaminophen 325 Mg Tablet) 650 mg PO Q6H PRN PRN Reason: Pain, Mild (Pain Scale 1-3) Albuterol/Ipratropium (Albuterol/Iprat 2.5/0.5mg 3 Ml Ampul.Neb) 3 ml INHALE RQ4H PRN PRN Reason: Shortness of Breath/Wheezing Albuterol/Ipratropium (Albuterol/Iprat 2.5/0.5mg 3 Ml Ampul.Neb) 3 ml INHALE RQ4H WHILE AWAKE [facility] Last Admin: 03/18/23 11:31 Dose: 3 ml Documented By: STEWART Ascorbic Acid (Ascorbic Acid 500 Mg Tablet) 500 mg PO DAILY [facility] Last Admin: 03/18/23 09:15 Dose: 500 mg Documented By: MIKE Docusate Sodium (Docusate Sodium 100 Mg Capsule) 100 mg PO DAILY PRN PRN Reason: Constipation Enoxaparin Sodium (Enoxaparin Sodium 40 Mg/0.4 Ml Syringe) 40 mg SUBCUT Q24H [facility] Last Admin: 03/18/23 09:15 Dose: 40 mg Documented By: MIKE Furosemide (Furosemide 40 Mg Tablet) 80 mg PO DAILY [facility]; Protocol Last Admin: 03/18/23 09:13 Dose: Not Given Documented By: MIKE Non-Admin Reason: Physician Held Med Gabapentin (Gabapentin 600 Mg Tablet) 600 mg PO QID [facility] Last Admin: 03/18/23 09:14 Dose: 600 mg Documented By: MIKE Ceftriaxone Sodium 1 gm/ (Sodium Chloride) 50 mls @ 100 mls/hr IV Q24H [facility] Last Infusion: 03/18/23 10:43 Dose: 0 mls/hr Documented By: MIKE Azithromycin 500 mg/ Sodium (Chloride) 250 mls @ 125 mls/hr IV Q24H [facility] Last Infusion: 03/17/23 21:36 Dose: 0 mls/hr Documented By: SHAI Lisinopril (Lisinopril 20 Mg Tablet) 20 mg PO DAILY [facility]; Protocol Last Admin: 03/18/23 09:13 Dose: Not Given Documented By: MIKE Non-Admin Reason: Physician Held Med Methylprednisolone Sodium Succinate (Methylprednisolone Sod Succ 40 Mg/Ml Vial) 60 mg IVPUSH Q8H [facility] Last Admin: 03/18/23 09:15 Dose: 60 mg Documented By: MIKE Metoprolol Succinate (Metoprolol Succinate Er 100 Mg Tab.Er.24h) 100 mg PO DAILY [facility]; Protocol Last Admin: 03/18/23 09:15 Dose: 100 mg Documented By: MIKE Ondansetron HCl (Ondansetron Hcl 4 Mg/2 Ml Vial) 4 mg IVPUSH Q8H PRN PRN Reason: Nausea and Vomiting Sodium Chloride (0.9 % Sodium Chloride Flush 3 Ml Syringe) 3 ml IVFLUSH QSHIFT [facility] Last Admin: 03/18/23 09:15 Dose: 3 ml Documented By: MIKE Tramadol HCl (Tramadol Hcl 50 Mg Tablet) 50 mg PO TID [facility] Last Admin: 03/18/23 09:14 Dose: 50 mg Documented By: MIKE Labs 03/16/23 06:23 03/18/23 06:03 Labs: Laboratory Results - last 24 hr 03/17/23 03/18/23 13:35 06:03 Anion Gap 12 Estim Creat Clear Calc 51.5 Estimated GFR 45 Random Glucose 129 H Calcium 9.7 Respiratory Panel Burger See Note Adenovirus (Rapid PCR) Not Detected B.pert (TEM-PCR) Not Detected B.parapertussis DNA PCR Not Detected C. pneumoniae DNA (PCR) Not Detected Coronavirus OC43 (PCR) Not Detected Coronavirus HKU1 (PCR) Not Detected Coronavirus 229E (PCR) Not Detected Coronavirus NL63 (PCR) Not Detected Human Metapneumovir PCR Not Detected Influenza A (RT-PCR) Not Detected Influenza B (RT-PCR) Not Detected M. pneumoniae (PCR) Not Detected Parainfluenza 1 (PCR) Not Detected Parainfluenza 2 (PCR) Not Detected Parainfluenza 3 (PCR) Not Detected Parainfluenza 4 (PCR) Not Detected RSV (PCR) Not Detected Entero/Rhino (PCR) Not Detected SARS-CoV-2 RNA (RT-PCR) Not Detected Microbiology Microbiology Results: Microbiology 03/15/23 18:28 Blood Culture - Preliminary Blood - Venous No growth after 48 hours. 03/15/23 18:08 Blood Culture - Preliminary Blood - Venous No growth after 48 hours. Assessment and Plan (1) Acute respiratory failure with hypoxia: Status: Acute (2) COPD with acute exacerbation: Status: Acute Plan 72-year-old female past medical history of hypertension and COPD presents to the hospital complaints of shortness of breath, cough and sputum production,? found to be hypoxic #? acute respiratory failure with hypoxia? secondary to acute COPD exacerbation and left lower lobe pneumonia Slowly improving with less shortness of breath and cough,CT chest showed left lower lobe pneumonia, moderate centrilobular emphysema and scarring left apex and 6 mm pulmonary nodule -? continue IV ceftriaxone and azithromycin day 2 since noted to have pneumonia on CT chest on IV steroids to 60 q.8 hours , wean steroids respiratory viral panel neg. continue DuoNeb p.r.n. as well as scheduled -? negative COVID, elevated WBC due to steroids -? history of lung CA, recommend continued outpatient follow-up with Oncology -? titrate O2 as tolerated, patient not on home oxygen will need home O2 eval prior to discharge, outpatient Pulmonary follow-up. # acute kidney injury likely prerenal , creatinine normalized, dc metolazone. #? hypertension -? stable,? continue lisinopril and metoprolol. #? chronic lower extremity edema - ? patient denies any history of CHF -? no evidence of pleural effusion or pulmonary congestion on imaging -? has indeterminate BNP 116 -? continue home Lasix # chronic pain -? continue home analgesics ?DVT prophylaxis:? Lovenox ?given patient's need for IV antibiotics for pneumonia and oxygen, and further evaluation for hypoxia, patient will need continued inpatient hospitalization Time Spent With Patient Time: Total time managing care of this patient today ____ minutes. Quality Stroke Does the patient have a stroke diagnosis?: No VTE Prior VTE?: No VTE Risk Level:: Medical - moderate - high VTE Device Contraindication: Treatment Not Indicated VTE Drug Contraindication: N/A - Med Ordered
[2023-03-18] MEDS: Azithromycin 500 MG in 0.9 % Sodium Chloride 250 ML 125 MG IV (16:10)
[2023-03-18] MEDS: cefTRIAXone sodium 1 GM in 0.9 % Sodium Chloride 50 ML IV (17:25)
[2023-03-19] VITALS (9 sets, daily range): BP systolic 109–122; BP diastolic 57–65; PULSE 65–79; RESP 16–20; TEMP 36.6–37; O2SAT 89–96
[2023-03-19] MEDS: Albuterol/Iprat 2.5/0.5MG 3 ML AMPUL.NEB INHALE ×4 (07:52→20:45)
[2023-03-19] MEDS: Ascorbic Acid 500 MG TABLET PO (10:00)
[2023-03-19] MEDS: lisinopriL 20 MG TABLET PO (10:00)
[2023-03-19] MEDS: Gabapentin 600 MG TABLET PO ×4 (10:00→22:26)
[2023-03-19] MEDS: traMADoL HCL 50 MG TABLET PO ×3 (10:00→22:26)
[2023-03-19] MEDS: Furosemide 40 MG TABLET 80 MG PO (10:01)
[2023-03-19] MEDS: Metoprolol Succinate ER 100 MG TAB.ER.24H PO (10:01)
[2023-03-19] MEDS: Enoxaparin Sodium 40 MG/0.4 ML SYRINGE SUBCUT (10:02)
[2023-03-19] MEDS: 0.9 % Sodium Chloride Flush 3 ML SYRINGE IVFLUSH ×2 (10:02→15:22)
--- NOTE | 2023-03-19 10:57 | HO.PM.IMPN ---
Subjective Subjective Date of Service: 03/19/23 Interval History: Being followed for hypoxia and pneumonia, feeling tired this morning otherwise feels comfortable denies shortness of breath continue to have intermittent cough, no fevers, issues overnight, no chills, tolerating diet, no other acute issues overnight, has been out of bed to chair. Review of Systems All other system reviewed and negative. Physical Exam Vital Signs: Vital Signs: Last Vital Signs Temp 98.1 F 03/19/23 07:44 Pulse 65 03/19/23 07:52 Resp 16 03/19/23 07:52 BP 122/65 03/19/23 07:44 Pulse Ox 92 03/19/23 07:44 O2 Del Method Nasal Cannula 03/19/23 07:44 O2 Flow Rate 2 03/19/23 07:44 BMI result Body Mass Index 45.5 Const: Other: General awake alert x3, in no acute distress.? Neck? supple no JVD. CVS? regular rate rhythm, Respiratory lungs less diminished breath sound, few expiratory wheeze no use of accessory muscles, no respiratory distress . Gastrointestinal abdomen soft, non tender, bowel sounds audible, no guarding , no rigidity. Extremities no? edema. Neuro non focal Skin no rash Psych appropriate affect Objective Data Active Medications Acetaminophen (Acetaminophen 325 Mg Tablet) 650 mg PO Q6H PRN PRN Reason: Pain, Mild (Pain Scale 1-3) Albuterol/Ipratropium (Albuterol/Iprat 2.5/0.5mg 3 Ml Ampul.Neb) 3 ml INHALE RQ4H PRN PRN Reason: Shortness of Breath/Wheezing Albuterol/Ipratropium (Albuterol/Iprat 2.5/0.5mg 3 Ml Ampul.Neb) 3 ml INHALE RQ4H WHILE AWAKE [facility] Last Admin: 03/19/23 07:52 Dose: 3 ml Documented By: STEWART Ascorbic Acid (Ascorbic Acid 500 Mg Tablet) 500 mg PO DAILY [facility] Last Admin: 03/19/23 10:00 Dose: 500 mg Documented By: MIROSLAVA Docusate Sodium (Docusate Sodium 100 Mg Capsule) 100 mg PO DAILY PRN PRN Reason: Constipation Enoxaparin Sodium (Enoxaparin Sodium 40 Mg/0.4 Ml Syringe) 40 mg SUBCUT Q24H [facility] Last Admin: 03/19/23 10:02 Dose: 40 mg Documented By: MIROSLAVA Furosemide (Furosemide 40 Mg Tablet) 80 mg PO DAILY [facility]; Protocol Last Admin: 03/19/23 10:01 Dose: 80 mg Documented By: MIROSLAVA Gabapentin (Gabapentin 600 Mg Tablet) 600 mg PO QID [facility] Last Admin: 03/19/23 10:00 Dose: 600 mg Documented By: MIROSLAVA Lisinopril (Lisinopril 20 Mg Tablet) 20 mg PO DAILY [facility]; Protocol Last Admin: 03/19/23 10:00 Dose: 20 mg Documented By: MIROSLAVA Methylprednisolone Sodium Succinate (Methylprednisolone Sod Succ 40 Mg/Ml Vial) 40 mg IVPUSH Q12H [facility] Metoprolol Succinate (Metoprolol Succinate Er 100 Mg Tab.Er.24h) 100 mg PO DAILY [facility]; Protocol Last Admin: 03/19/23 10:01 Dose: 100 mg Documented By: MIROSLAVA Ondansetron HCl (Ondansetron Hcl 4 Mg/2 Ml Vial) 4 mg IVPUSH Q8H PRN PRN Reason: Nausea and Vomiting Sodium Chloride (0.9 % Sodium Chloride Flush 3 Ml Syringe) 3 ml IVFLUSH QSHIFT [facility] Last Admin: 03/19/23 10:02 Dose: 3 ml Documented By: MIROSLAVA Tramadol HCl (Tramadol Hcl 50 Mg Tablet) 50 mg PO TID [facility] Last Admin: 03/19/23 10:00 Dose: 50 mg Documented By: MIROSLAVA Labs 03/16/23 06:23 03/18/23 06:03 Assessment and Plan (1) Acute respiratory failure with hypoxia: Status: Acute (2) COPD with acute exacerbation: Status: Acute Plan 72-year-old female past medical history of hypertension and COPD presents to the hospital complaints of shortness of breath, cough and sputum production,? found to be hypoxic #?Acute respiratory failure with hypoxia? secondary to acute COPD exacerbation and left lower lobe pneumonia Slowly improving , less shortness of breath and cough,CT chest showed left lower lobe pneumonia, moderate centrilobular emphysema and scarring left apex and 6 mm pulmonary nodule -? negative COVID, elevated WBC due to steroids, respiratory viral panel neg. -? on IV ceftriaxone and azithromycin day 3/5 since noted to have pneumonia on CT chest, will transition to oral Ceftin and azithromycin today no on IV steroids to 60 q.12 hours , wean steroids to 40 mg q.12 hours IV today transition to by mouth prednisone tomorrow continue DuoNeb p.r.n. as well as scheduled -? history of lung CA, recommend continued outpatient follow-up with Oncology -? titrate O2 as tolerated, patient not on home oxygen will need home O2 eval prior to discharge, outpatient Pulmonary follow-up with Dr. Torres. Will need updraft treatment arrange for home. # acute kidney injury likely prerenal , creatinine normalized, dc metolazone. #? hypertension -? stable,? continue lisinopril and metoprolol. #? chronic lower extremity edema - ? patient denies any history of CHF -? no evidence of pleural effusion or pulmonary congestion on imaging -? has indeterminate BNP 116 -? continue home Lasix # chronic pain -? continue home analgesics ?DVT prophylaxis:? Lovenox ?given patient's need for IV antibiotics for pneumonia and oxygen, and patient will need continued inpatient hospitalization Time Spent With Patient Time: Total time managing care of this patient today ____ minutes. Quality Stroke Does the patient have a stroke diagnosis?: No VTE Prior VTE?: No VTE Risk Level:: Medical - moderate - high VTE Device Contraindication: Treatment Not Indicated VTE Drug Contraindication: N/A - Med Ordered
[2023-03-19] MEDS: methylPREDNISolone Sod Succ 40 MG/ML VIAL IVPUSH ×2 (12:23→22:27)
[2023-03-19] MEDS: Azithromycin 500 MG TABLET PO (12:23)
--- NOTE | 2023-03-19 18:54 | P.CDIM_ITS ---
PROVIDER RESPONSE TEXT: To clarify, the appropriate diagnosis supported by the clinical indicators: Morbid obesity QUERY TEXT: PHYSICIAN'S DOCUMENTATION REQUEST Date of Query: 03/17/2023 09:22 AM EDT Patient Name: Nicole Goldstein Admit Date: 03/16/2023 Dear Rubia Jaramillo, A review of the medical record indicates additional documentation may be needed. Please review below and update the documentation accordingly. Clinical Indicators: Nursing assessment Height and Weight: BMI 45.5 Extreme obesity class III If possible, please provide an associated diagnosis related to the abnormal BMI, such as: Morbid obesity Obesity Due to excess calories Other Other (explain)Clinically unable to determine (explain)Thank you, Joaquina Robins, CCS, CDIS Use of terms such as suspected, likely, concern for, or probable (associated with a specific diagnosi s that is being evaluated, monitored, or treated as if it exists) are acceptable and can be coded in the inpatient se tting, when documented at the time of discharge. Please use your independent medical judgment in providing your response. THIS QUERY IS PART OF THE PERMANENT MEDICAL RECORD
[2023-03-20] MEDS: 0.9 % Sodium Chloride Flush 3 ML SYRINGE IVFLUSH ×3 (00:37→15:19)
[2023-03-20 07:32] VITALS: BP 138/60; PULSE 80; RESP 20; TEMP 36.4; O2SAT 92
[2023-03-20] MEDS: Albuterol/Iprat 2.5/0.5MG 3 ML AMPUL.NEB INHALE ×2 (08:43→15:24)
[2023-03-20 08:44] VITALS: PULSE 82; RESP 16; O2SAT 90
[2023-03-20] MEDS: traMADoL HCL 50 MG TABLET PO ×2 (09:07→15:18)
[2023-03-20] MEDS: Metoprolol Succinate ER 100 MG TAB.ER.24H PO (09:08)
[2023-03-20] MEDS: lisinopriL 20 MG TABLET PO (09:08)
[2023-03-20] MEDS: Furosemide 40 MG TABLET 80 MG PO (09:08)
[2023-03-20] MEDS: Gabapentin 600 MG TABLET PO ×2 (09:08→12:09)
[2023-03-20] MEDS: Ascorbic Acid 500 MG TABLET PO (09:08)
[2023-03-20 09:10] VITALS: PULSE 80; PULSE 91; O2SAT 87; O2SAT 89; O2SAT 93
[2023-03-20] MEDS: Enoxaparin Sodium 40 MG/0.4 ML SYRINGE SUBCUT (09:11)
[2023-03-20] MEDS: Azithromycin 500 MG TABLET PO (10:20)
--- NOTE | 2023-03-20 14:30 | W.MHC.F2F ---
Service Date Service Date: 03/20/23 Encounter Date of encounter: 03/20/23 Reasons for Services Signs and symptoms assessed: respiratory new O2 req Reason for intermediate: medication management and teach disease management Reason for physical therapy: home safety and mobility, therapeutic exercises, gait/transfer training, assess need for DME, ADL training, energy conservation and other (pulm rehab) MD Overseeing Care: Luigi Hong Homebound: Leaving the home is medically contraindicated at this time without the asist of a device and/or another person due th the listed conditions above and below. Reason homebound: shortness of breath with minimal effort Certification: Based on the above findings, I certify that this patient is confined to the home and needs intermittent intermediate care, physical therapy and/or speech therapy, or continues to need occupational therapy. The patient is under my care, and I have initiated the establishment of the plan of care. The patient will be followed by a physician who will periodically review the plan of care. Time Spent With Patient Time: Total time managing care of this patient today ____ minutes.
--- NOTE | 2023-03-20 14:38 | PM.DS ---
DS: Providers Provider Date of Service: 03/20/23 Date of admission: 03/15/23 21:55 Date of discharge: 03/20/23 Primary care physician: Luigi Hong MD Consults: 03/16/23 13:05 Consult to Pulmonology Routine Consulting Provider: [facility] Pulmonology Services Reason for consultation: copd exac hypoxia Has provider been notified: No DS: Diagnosis Discharge Diagnosis (1) Acute respiratory failure with hypoxia: Status: Acute (2) COPD with acute exacerbation: Status: Acute (3) Pneumonia: Status: Acute (4) Acute kidney injury: Status: Acute (5) Morbid obesity: Status: Acute (6) Pulmonary nodule: Status: Acute DS: Summary Hospital Course Hospital Course: from admission H+P 03/15/23 by hospitalist Lidia Auguste MD: 72-year-old female -past medical history of hypertension, COPD, current smoker comes into the hospital with complaints of shortness breath, cough and increased sputum production x1 day.? Patient denies any fever no chills,? has chest pain with coughing but has also had on and off chest pain for a while being evaluated by her doctors.? Currently has no chest pain.no abdominal pain nausea or vomiting, no diarrhea constipation, no urinary symptoms and chronic lower extremity edema Patient noted to be hypoxic in the 70s at home by her son.? She is currently on 3 L of oxygen satting 92% On arrival to the ED? documented to be 83% on room air, with slightly low blood pressure of 88/51.? Blood pressure is now 121/55 Labs are significant for WBC count of 16.7, creatinine of 1.85 with a baseline of around 1 point 1-1.6, COVID-19 negative Chest x-ray unremarkable ?patient will be admitted for further management This is a 72 year-old female with HTN + COPD presenting with dyspnea, cough, and sputum production and admitted for acute hypoxic respiratory failure due to LLL pneumonia and COPD exacerbation. CT chest showed LLL PNA, moderate centrilobular emphysema, scarring of the L apex, and a 6 mm pulmonary nodule. She was treated with IV ceftriaxone + azithromycin for 3 days. Also given IV methylprednisolone and Duoneb treatments. She qualified for home oxygen 3L at all times. She was discharged on 2 more days of PO cefuroxime and azithromycin, along with a 6-day dexamethasone taper. She was prescribed Duoneb solution and nebulizer as well. She will need Pulmonology follow-up as well as follow-up with her usual oncologist given history of lung cancer. She was counseled to quit smoking. Metolazone was discontinued due to DANA and creatinine returned to baseline. She was discharged home with VNA services/home PT. Time Spent with Patient Time attestation: Total time managing care of this patient today ___45_ minutes. Discharge coordination time: Greater than 30 minutes Quality: Safe Use of Opioids Does Pt have an Active Cancer Diagnosis on the Problem List?: No Quality: Stroke Does the patient have a stroke diagnosis?: No Physical Exam Vital Signs: Vital Signs: Last Vital Signs Temp 97.6 F 03/20/23 07:32 Pulse 82 03/20/23 08:44 Resp 16 03/20/23 08:44 BP 138/60 03/20/23 07:32 Pulse Ox 92 03/20/23 07:32 O2 Del Method Nasal Cannula 03/20/23 07:32 O2 Flow Rate 3 03/20/23 07:32 BMI result Body Mass Index 45.5 Gen: in no acute distress HEENT: sclera anicteric, moist mucus membranes Neck: supple Lungs: clear to auscultation bilaterally Heart: regular rate and rhythm, no murmurs Abd: soft, non-tender, non-distended, morbid obesity Ext: no edema Skin: warm/well-perfused Neuro: alert and oriented x3, no focal findings Psych: appropriate affect DS: Data Data Completed and Pending Completed studies during hospitalization [Text1]: Laboratory Results WBC 20.0 X10*3/uL (4.8-10.8) H 03/16/23 06:23 RBC 3.88 X10*6/uL (4.20-5.50) L 03/16/23 06:23 Hgb 11.5 g/dl (12.0-16.0) L 03/16/23 06:23 Hct 37.4 % (37.0-47.0) 03/16/23 06:23 MCV 96.4 fL (80.0-98.0) 03/16/23 06:23 MCH 29.6 pg (27.0-33.0) 03/16/23 06: MCHC 30.7 g/dl (31.0-35.0) L 03/16/23 06: RDW 17.1 % (11.0-16.0) H 03/16/23 06:23 Plt Count 332 X10*3/uL (160-400) 03/16/23 06:23 MPV 9.3 fL (9.4-12.3) L 03/16/23 06:23 Immature Gran % (Auto) 0.9 % (0.0-0.4) H 03/16/23 06: Neut % (Auto) 90.9 % (45-73) H 03/16/23 06: Lymph % (Auto) 5.7 % (20-40) L 03/16/23 06: [place] % (Auto) 2.3 % (2-11) 03/16/23 06: Eos % (Auto) 0.0 % (0-4) 03/16/23 06: Baso % (Auto) 0.2 % (0-2) 03/16/23 06: Lymph # (Auto) 1.1 X10*3/uL (1.2-4.9) L 03/16/23 06:23 [place] # (Auto) 0.5 X10*3/uL (0.1-1.2) 03/16/23 06: Eos # (Auto) 0.0 X10*3/uL (0.0-0.4) 03/16/23 06: Baso # (Auto) 0.0 X10*3/uL (0.0-0.2) 03/16/23 06: Abs Immat Gran (auto) 0.18 X10*3/uL (0.00-0.03) H 03/16/23 06:23 Absolute Neuts (auto) 18.2 x10*3/uL (2.0-8.3) H 03/16/23 06: Absolute Nucleated RBC 0.040 X10*3/uL (0.0-0.012) H 03/16/23 06: Nucleated RBC % (auto) 0.2 /100WBC (0.0-0.2) 03/16/23 06: Smear Tech's Comments VERIFIED 03/16/23 06:23 D-Dimer High Sensitivty 356 NG/ML 03/15/23 18:28 Sodium 140 mmol/L (135-145) 03/18/23 06:03 Potassium 5.0 mmol/L (3.3-5.1) 03/18/23 06:03 Chloride 103 mmol/L (96-108) 03/18/23 06:03 Carbon Dioxide 30 mmol/L (22-29) H 03/18/23 06:03 Anion Gap 12 (12-20) 03/18/23 06:03 BUN 62 mg/dL (9-16) H 03/18/23 06:03 Creatinine 1.18 mg/dL (0.5-1.4) 03/18/23 06:03 Estim Creat Clear Calc 51.5 03/18/23 06:03 Estimated GFR 45 03/18/23 06:03 Random Glucose 129 mg/dL (60-115) H 03/18/23 06:03 Lactic Acid 1.1 mmol/L (0.5-2.0) 03/15/23 18:08 Calcium 9.7 mg/dL (8.4-10.2) 03/18/23 06:03 Total Bilirubin 0.3 mg/dL (0.0-1.0) 03/15/23 18:42 AST 33 U/L (5-31) H 03/15/23 18:42 ALT 23 U/L (0-31) 03/15/23 18:42 Alkaline Phosphatase 137 U/L (39-117) H 03/15/23 18:42 Troponin I High Sens 4.6 ng/L (<3.5-17.0) 03/15/23 18:42 B-Natriuretic Peptide 116 pg/mL (<100) H 03/15/23 18:08 Total Protein 7.6 g/dL (6.5-8.0) 03/15/23 18:42 Albumin 3.3 g/dL (3.5-5.0) L 03/15/23 18:42 Respiratory Panel Burger See Note 03/17/23 13:35 Adenovirus (Rapid PCR) Not Detected (Not Detect.) 03/17/23 13:35 B.pert (TEM-PCR) Not Detected (Not Detect.) 03/17/23 13:35 B.parapertussis DNA PCR Not Detected (Not Detect.) 03/17/23 13:35 C. pneumoniae DNA (PCR) Not Detected (Not Detect.) 03/17/23 13:35 Coronavirus OC43 (PCR) Not Detected (Not Detect.) 03/17/23 13:35 Coronavirus HKU1 (PCR) Not Detected (Not Detect.) 03/17/23 13:35 Coronavirus 229E (PCR) Not Detected (Not Detect.) 03/17/23 13:35 COVID-19 (MECHE) Negative (Negative) 03/15/23 18:28 COVID-19 Clin Com See Note 03/15/23 18:28 Coronavirus NL63 (PCR) Not Detected (Not Detect.) 03/17/23 13:35 Human Metapneumovir PCR Not Detected (Not Detect.) 03/17/23 13:35 Influenza A (RT-PCR) Not Detected (Not Detect.) 03/17/23 13:35 Influenza B (RT-PCR) Not Detected (Not Detect.) 03/17/23 13:35 M. pneumoniae (PCR) Not Detected (Not Detect.) 03/17/23 13:35 Parainfluenza 1 (PCR) Not Detected (Not Detect.) 03/17/23 13:35 Parainfluenza 2 (PCR) Not Detected (Not Detect.) 03/17/23 13:35 Parainfluenza 3 (PCR) Not Detected (Not Detect.) 03/17/23 13:35 Parainfluenza 4 (PCR) Not Detected (Not Detect.) 03/17/23 13:35 RSV (PCR) Not Detected (Not Detect.) 03/17/23 13:35 Entero/Rhino (PCR) Not Detected (Not Detect.) 03/17/23 13:35 SARS-CoV-2 RNA (RT-PCR) Not Detected (Not Detect.) 03/17/23 13:35 Impressions Chest X-Ray 03/15/23 17:15 IMPRESSION: No acute cardiopulmonary process. Chest CT 03/16/23 18:46 IMPRESSION: Left lower lobe pneumonia. Follow-up until resolution is advised. Pulmonary nodules measuring up to 6 mm. Follow-up chest CT in 6-12 months is advised. Labs on day of discharge: Preliminary micro results at discharge 03/15/23 18:28 Blood Culture - Preliminary Blood - Venous No growth after 48 hours. 03/15/23 18:08 Blood Culture - Preliminary Blood - Venous No growth after 48 hours. Discharge Plan Discharge Anticipated Discharge Date/Time: 03/20/23 15:31 Patient Disposition: Home Health Service Discharge Diagnosis: Acute respiratory failure with hypoxia secondary to acute COPD exacerbation and left lower lobe pneumonia Pulmonary nodule Acute kidney injury Referrals: Alissa DUNAWAY [Outside] - 1 Week Luigi Hong MD [Primary Care Provider] - 1 Week John Marquez MD [Physician] - 1 Week Discharge Medications: New ipratropium-albuterol 0.5 mg-3 mg(2.5 mg base)/3 mL Solution For Nebulization 3 ml inhalation RQ4H PRN (Reason: Shortness Of Breath/Wheezing) Qty: 50 0RF cefuroxime axetil 500 mg Tablet 500 mg PO Q12H Qty: 4 0RF azithromycin 250 mg tablet 250 mg PO DAILY 2 Days Qty: 2 0RF Rx Instructions: start on day 2 of therapy dexamethasone 2 mg tablet See Rx Instructions .ROUTE .COMPLEX Qty: 12 0RF Rx Instructions: 6 mg [3 tabs] daily x 2 days, then 4 mg [2 tabs] daily x 2 days, then 2 mg [1 tab] daily x 2 days nicotine (polacrilex) 2 mg gum 2 mg buccal Q2H Qty: 50 0RF Continued gabapentin 600 mg tablet 600 mg PO QID lisinopril 20 mg tablet 20 mg PO DAILY metoprolol succinate 100 mg tablet extended release 24 hr 100 mg PO DAILY tramadol 50 mg tablet 50 mg PO TID ascorbic acid (vitamin C) [Vitamin C] 500 mg Tablet 500 mg PO DAILY furosemide 80 mg tablet 80 mg PO DAILY acetaminophen [Tylenol] 325 mg Capsule 650 mg PO BEDTIME PRN (Reason: Pain) Discontinued metolazone 2.5 mg tablet 2.5 mg PO Rx Instructions: Monday and Fridays Discharge Orders: Discharge Order (Routine); Ordered 03/20/23 Ordered By: Selina Rowan Diet: Advance to usual diet Activity on Discharge: As tolerated Stand Alone Forms: Patient Portal Discharge page Care Plan Goals: pulmonary health Health Concerns: Acute respiratory failure with hypoxia secondary to acute COPD exacerbation and left lower lobe pneumonia Pulmonary nodule Acute kidney injury Plan of Treatment: oxygen 3L at all times dexamethasone taper as follows: 6 mg daily x 2 days, then 4 mg daily x 2 days, then 2 mg daily x 2 days use Duoneb solution as needed for dyspnea/wheezing follow up with [facility] [place] Pulmonology take antibiotics as prescribed: cefuroxime 500 mg twice daily x 2 days, azithromycin 250 mg once daily x 2 deays quit smoking repeat CT chest in 6 months stop metolazone home with VNA services Please follow up with your primary care doctor within 1 week. Return to the hospital if you experience recurrent or worsening symptoms. Assessment: See Discharge Summary.
--- NOTE | 2023-03-20 14:50 | MHC.CM.PN ---
Second IMM given 03/20. Pt medically cleared for D/C home with new VNA, [facility] was preferred choice. Pt will have new home O2 with [facility]. Pts family to transport home.
[2023-03-20 15:09] VITALS: BP 107/65; PULSE 73; RESP 15; TEMP 36.1; O2SAT 89
[2023-03-20 15:26] VITALS: PULSE 88; RESP 18; O2SAT 93
== END 2023-03-20 16:31 | disposition home health service (06) | DRG 193 ==
LOC: HO.ED 20:13 → HO.EDOVER 22:05 → HO.IMC 22:29
PROVIDERS: Hospitalist; Registered Nurse Emergency; Admitting Provider Internal Medicine; Emergency Provider Emergency Medicine Emergency Medical Services; PCP Internal Medicine; Visit Provider Family Medicine
DX: J18.9 Pneumonia, unspecified organism (principal); J96.01 Acute respiratory failure with hypoxia; J44.0 Chronic obstructive pulmonary disease with (acute) lower respiratory infection; Z68.42 Body mass index [BMI] 45.0-49.9, adult; N17.9 Acute kidney failure, unspecified; J44.1 Chronic obstructive pulmonary disease with (acute) exacerbation; I10 Essential (primary) hypertension; E66.01 Morbid (severe) obesity due to excess calories; G89.29 Other chronic pain; F17.210 Nicotine dependence, cigarettes, uncomplicated; Z71.6 Tobacco abuse counseling; Z85.118 Personal history of other malignant neoplasm of bronchus and lung; Z92.3 Personal history of irradiation; Z90.2 Acquired absence of lung [part of]; Z20.822 Contact with and (suspected) exposure to COVID-19; Z79.899 Other long term (current) drug therapy
CPT/HCPCS: 36415; 71046; 71250; 80048; 80053; 83605; 83880; 84484; 85025; 85379; 87040; 87633; 87635; 93005; 94640; 99285; J0456; J0696; J1650; J2920; J2930

== ENCOUNTER → 2023-03-15 16:30 | Outpatient (BNV) | payer MEDICARE, OTHER, SELFPAY | PROVIDERS: Admitting Provider Internal Medicine; Emergency Provider Emergency Medicine Emergency Medical Services; PCP Internal Medicine; Visit Provider Internal Medicine Cardiovascular Disease | DX: R00.1 Bradycardia, unspecified (principal); R94.31 Abnormal electrocardiogram [ECG] [EKG] | CPT/HCPCS: 93010 ==

== ENCOUNTER → 2023-03-15 21:55 | Outpatient (BNV) | payer MEDICARE, OTHER, SELFPAY | PROVIDERS: Admitting Provider Internal Medicine; Emergency Provider Emergency Medicine Emergency Medical Services; PCP Internal Medicine; Visit Provider Internal Medicine | DX: J96.01 Acute respiratory failure with hypoxia (principal); J44.1 Chronic obstructive pulmonary disease with (acute) exacerbation; N17.9 Acute kidney failure, unspecified; E66.01 Morbid (severe) obesity due to excess calories; Z68.42 Body mass index [BMI] 45.0-49.9, adult; J18.9 Pneumonia, unspecified organism; R91.1 Solitary pulmonary nodule | CPT/HCPCS: 99223; 99232; 99233; 99239; G0180 ==

== ENCOUNTER → 2023-03-15 21:55 | Outpatient (BNV) | payer MEDICARE, OTHER, SELFPAY | PROVIDERS: Admitting Provider Internal Medicine; Emergency Provider Emergency Medicine Emergency Medical Services; PCP Internal Medicine; Visit Provider Hospitalist | DX: J96.01 Acute respiratory failure with hypoxia (principal); J44.1 Chronic obstructive pulmonary disease with (acute) exacerbation; J18.9 Pneumonia, unspecified organism; C34.90 Malignant neoplasm of unspecified part of unspecified bronchus or lung | CPT/HCPCS: 99223 ==

== ENCOUNTER 2023-03-22 18:58 | Emergency (ER) | payer MEDICARE, OTHER, SELFPAY ==
[2023-03-22 19:07] VITALS: BP 119/57; PULSE 82; RESP 16; TEMP 36.4; O2SAT 92; BMI 45.3
--- NOTE | 2023-03-22 19:08 | ED.EXTPRO ---
HPI - Extremity Problem General Chief complaint: Extremity Problem Stated complaint: neuropathy on feet Time Seen by Provider: 03/22/23 22:48 Source: patient Mode of arrival: ambulatory Limitations: no limitations History of Present Illness HPI Narrative: Patient just discharged from the hospital 3 days ago for pneumonia with history of peripheral neuropathy comes in for ongoing drop with the thick pain patient taking gabapentin 600 mg a day and tramadol without much relief Related Data Home Medications Medication Instructions Recorded Confirmed acetaminophen 325 mg capsule 650 mg PO BEDTIME PRN Pain 03/15/23 03/15/23 (Tylenol) ascorbic acid (vitamin C) 500 mg 500 mg PO DAILY 03/15/23 03/15/23 tablet (Vitamin C) furosemide 80 mg tablet 80 mg PO DAILY 03/15/23 03/15/23 gabapentin 600 mg tablet 600 mg PO QID 03/15/23 03/15/23 lisinopril 20 mg tablet 20 mg PO DAILY 03/15/23 03/15/23 metoprolol succinate 100 mg 100 mg PO DAILY 03/15/23 03/15/23 tablet,extended release 24 hr tramadol 50 mg tablet 50 mg PO TID 03/15/23 03/15/23 Previous Rx's Medication Instructions Recorded azithromycin 250 mg tablet 250 mg PO DAILY 2 days #2 tabs 03/20/23 cefuroxime axetil 500 mg tablet 500 mg PO Q12H #4 tabs 03/20/23 dexamethasone 2 mg tablet See Rx Instructions .Route 03/20/23 .COMPLEX #12 tabs ipratropium 0.5 mg-albuterol 3 mg 3 ml inhalation RQ4H PRN Shortness 03/20/23 (2.5 mg base)/3 mL nebulization Of Breath/Wheezing #50 packets soln nicotine (polacrilex) 2 mg gum 2 mg buccal Q2H nicotine crav #50 03/20/23 ea albuterol sulfate 2.5 mg/3 mL 2.5 mg (3 mL) inhalation Q4H PRN 03/22/23 (0.083 %) solution for nebulization shortness of breath or wheezing #75 mL pregabalin 50 mg capsule (Lyrica) 50 mg PO BID #60 caps 03/23/23 Allergies Allergy/AdvReac Type Severity Reaction Status Date / Time PCN Allergy Unknown rash Uncoded 03/15/23 16:50 Penicillin Allergy Unknown rash Uncoded 03/15/23 16:50 PredniSONE Allergy Unknown high dose Uncoded 03/15/23 16:50 gives her rashes prednisone Allergy Unknown rash Uncoded 03/15/23 16:50 Review of Systems Review of Systems: Yes all other systems are reviewed and are negative [facility] Past Medical History Medical History Carpal tunnel syndrome, left High blood pressure Lung cancer Nerve pain Pneumonia Surgical History H/O: hysterectomy Social History Social History Household Members: [facility] Do you presently have visiting nurse or other home services: No Alcohol intake: never Patient Tobacco Use Status: Current everyday Tobacco user Tobacco use type: Cigarette Cigarette Packs Per Day: 0.5 Cigarettes Per Day: 10.0 Smoked in Last 30 Days: No Use of substances other than those prescribed or required for medical reasons: No Advance Directives: No Advance Directives Information Provided: Yes service: No Current occupational status: retired Current occupation: left handed Physical Exam Vital Signs: Vital Signs: Last Vital Signs Temp 97.8 F 03/22/23 23:46 Pulse 71 03/22/23 23:46 Resp 15 03/22/23 23:46 BP 116/64 03/22/23 23:46 Pulse Ox 96 03/22/23 23:46 O2 Del Method Nasal Cannula 03/22/23 23:46 O2 Flow Rate 3 03/22/23 23:46 Oxygen Flow Rate 3 03/22/23 19:07 BMI result Body Mass Index 45.3 Appearance: Alert. Oriented X3. No acute distress. Eyes: PERRLA, No Nystagmus ENT: Pharynx normal. Oral Mucosa moist Neck: Normal inspection. Neck supple. CVS: Normal heart rate and rhythm. Pulses normal. Respiratory: No respiratory distress. Equal air entry bilateral, no wheezing/rales/rhonchi Abdomen: Soft and nontender. Bowel sounds are present, no mass palpable, no CVA tenderness Skin: Skin warm and dry. Normal skin color. Normal skin turgor. Extremities: No lower extremity edema. No calf tenderness Neuro: Oriented X 3. No motor deficit. No sensory deficit.No cerebellar signs , cranial nerves II-XII intact Course Course Course Narrative: RME - 72 yo female with history of lung cancer in remission, neuropathy w/ chronic pain on gabapentin and tramadol, COPD, now on 3L supplemental O2 with recent admission here to [facility] [place] for PNA who presents to the ER for evaluation of severe bilateral feet pain that started at 1pm. No trauma. Pain is >10/10 and in bilateral feet. Took Tramadol x4 with no relief. Plan: check basic labs, treat pain Medications Administered Discontinued Medications Generic Name Dose Route Start Last Admin Trade Name Freq PRN Reason Stop Dose Admin Pregabalin 50 mg 03/22/23 23:42 03/23/23 00:37 Pregabalin 50 Mg Capsule PO 03/22/23 23:43 50 mg ONCE ONE Administration Medical Decision Making Medical Decision Making [facility] Narrative: Patient with chronic peripheral neuropathy recently discharged stable labs will discharge patient home on Lyrica advised to follow neurologist Lab Data [facility] Lab Attestation statement: I reviewed the patient's lab results. 03/22/23 20:11 03/22/23 20:11 Labs: Lab Results 03/22/23 03/22/23 Range/Units 20:11 20:11 WBC 16.9 H (4.8-10.8) X10*3/uL RBC 4.50 (4.20-5.50) X10*6/uL Hgb 13.3 (12.0-16.0) g/dl Hct 42.0 (37.0-47.0) % MCV 93.3 (80.0-98.0) fL MCH 29.6 (27.0-33.0) pg MCHC 31.7 (31.0-35.0) g/dl RDW 16.3 H (11.0-16.0) % Plt Count 322 (160-400) X10*3/uL MPV 9.3 L (9.4-12.3) fL Immature Gran % (Auto) 1.2 H (0.0-0.4) % Neut % (Auto) 75.9 H (45-73) % Lymph % (Auto) 16.7 L (20-40) % Story % (Auto) 5.9 (2-11) % Eos % (Auto) 0.1 (0-4) % Baso % (Auto) 0.2 (0-2) % Lymph # (Auto) 2.8 (1.2-4.9) X10*3/uL Story # (Auto) 1.0 (0.1-1.2) X10*3/uL Eos # (Auto) 0.0 (0.0-0.4) X10*3/uL Baso # (Auto) 0.0 (0.0-0.2) X10*3/uL Abs Immat Gran (auto) 0.20 H (0.00-0.03) X10*3/uL Absolute Neuts (auto) 12.9 H (2.0-8.3) x10*3/uL Absolute Nucleated RBC 0.000 (0.0-0.012) X10*3/uL Nucleated RBC % (auto) 0.0 (0.0-0.2) /100WBC Sodium 138 (135-145) mmol/L Potassium 4.2 (3.3-5.1) mmol/L Chloride 97 (96-108) mmol/L Carbon Dioxide 32 H (22-29) mmol/L Anion Gap 13 (12-20) BUN 45 H (9-16) mg/dL Creatinine 1.20 (0.5-1.4) mg/dL Estim Creat Clear Calc 50.5 Estimated GFR 44 Random Glucose 143 H (60-115) mg/dL Calcium 10.3 H D (8.4-10.2) mg/dL Magnesium 2.3 (1.6-2.6) mg/dL Total Bilirubin < 0.5 (0.0-1.0) mg/dL Direct Bilirubin 0.2 (0.0-0.5) mg/dL AST 41 H (5-31) U/L ALT 107 H (0-31) U/L Alkaline Phosphatase 110 (39-117) U/L Total Protein 6.8 (6.5-8.0) g/dL Albumin 3.5 (3.5-5.0) g/dL TSH 0.94 (0.32-4.0) uIU/mL Discharge Plan Discharge Clinical Impression: Neuropathy, peripheral Patient Disposition: Home, Self-Care Instructions: Peripheral Neuropathy (ED) Additional Instructions: Continue medication as prescribed by her PCP Add Lyrica 50 mg twice daily See neurologist for further evaluation Prescriptions: New pregabalin [Lyrica] 50 mg capsule 50 mg PO BID Qty: 60 0RF No Action gabapentin 600 mg tablet 600 mg PO QID lisinopril 20 mg tablet 20 mg PO DAILY metoprolol succinate 100 mg tablet extended release 24 hr 100 mg PO DAILY tramadol 50 mg tablet 50 mg PO TID ascorbic acid (vitamin C) [Vitamin C] 500 mg Tablet 500 mg PO DAILY furosemide 80 mg tablet 80 mg PO DAILY acetaminophen [Tylenol] 325 mg Capsule 650 mg PO BEDTIME PRN (Reason: Pain) ipratropium-albuterol 0.5 mg-3 mg(2.5 mg base)/3 mL Solution For Nebulization 3 ml inhalation RQ4H PRN (Reason: Shortness Of Breath/Wheezing) Qty: 50 0RF cefuroxime axetil 500 mg Tablet 500 mg PO Q12H Qty: 4 0RF azithromycin 250 mg tablet 250 mg PO DAILY 2 Days Qty: 2 0RF Rx Instructions: start on day 2 of therapy dexamethasone 2 mg tablet See Rx Instructions .ROUTE .COMPLEX Qty: 12 0RF Rx Instructions: 6 mg [3 tabs] daily x 2 days, then 4 mg [2 tabs] daily x 2 days, then 2 mg [1 tab] daily x 2 days nicotine (polacrilex) 2 mg gum 2 mg buccal Q2H Qty: 50 0RF albuterol sulfate 2.5 mg /3 mL (0.083 %) solution for nebulization 2.5 mg inhalation Q4H PRN (Reason: shortness of breath or wheezing) Qty: 75 0RF Referrals: Magalis Parsons MD [Physician] - 1 week Interventions: ED Discharge Assessment Last Done: 03/23/23 01:01 Discharge Date/Time: 03/23/23 01:01
--- NOTE | 2023-03-22 20:13 | MHC.EDTECH ---
Patient was brought into triage area,labs were obtained and sent ot lab
[2023-03-22 20:16] LABS: MANUAL DIFF FLAG NO
[2023-03-22 20:18] LABS: Basophils Percent Auto 0.2 % (0-2); Eosinophils Percent Auto 0.1 % (0-4); Hemoglobin 13.3 g/dl (12.0-16.0); Imm Gran Pct Auto 1.2 % (0.0-0.4); Lymphocytes Absolute Auto 2.8 X10*3/uL (1.2-4.9); Lymphocytes Percent Auto 16.7 % (20-40); Mean Corpuscular HGB Conc 31.7 g/dl (31.0-35.0); Mean Corpuscular Hemoglobin 29.6 pg (27.0-33.0); Mean Corpuscular Volume 93.3 fL (80.0-98.0); Mean Platelet Volume 9.3 fL (9.4-12.3); Monocytes Percent Auto 5.9 % (2-11); Neutrophils Absolute Auto 12.9 x10*3/uL (2.0-8.3); Neutrophils Percent Auto 75.9 % (45-73); Platelet Count 322 X10*3/uL (160-400); Red Cell Distribution Width 16.3 % (11.0-16.0); White Blood Count 16.9 X10*3/uL (4.8-10.8)
[2023-03-22 21:03] LABS: Alanine Aminotransferase 107 U/L (0-31); Albumin Level 3.5 g/dL (3.5-5.0); Alkaline Phosphatase 110 U/L (39-117); Aspartate Amino Transferase 41 U/L (5-31); Bilirubin Direct 0.2 mg/dL (0.0-0.5); Blood Urea Nitrogen 45 mg/dL (9-16); Calcium 10.3 mg/dL (8.4-10.2); Chloride 97 mmol/L (96-108); Creatinine Clr Calc Pharmacy 50.5; Estimated Glomerular Filt Rate 44; Glucose Random 143 mg/dL (60-115); Magnesium 2.3 mg/dL (1.6-2.6); Potassium 4.2 mmol/L (3.3-5.1); Sodium 138 mmol/L (135-145); Total Protein 6.8 g/dL (6.5-8.0)
[2023-03-22 21:13] LABS: Bilirubin Total < 0.5 mg/dL (0.0-1.0)
[2023-03-22 21:17] LABS: TSH reflex Free T4 0.94 uIU/mL (0.32-4.0)
[2023-03-22 22:13] VITALS: BP 117/60; PULSE 72; RESP 15; TEMP 36.6; O2SAT 96
[2023-03-22 23:21] VITALS: BP 116/64; PULSE 73; RESP 17; TEMP 36.7; O2SAT 95
[2023-03-22 23:46] VITALS: BP 116/64; PULSE 71; RESP 15; TEMP 36.6; O2SAT 96
[2023-03-23] MEDS: Pregabalin 50 MG CAPSULE PO (00:37)
[2023-03-23 07:00] LABS: Carbon Dioxide 32 mmol/L (22-29)
[2023-03-23 08:50] LABS: Anion Gap 13 (12-20)
== END 2023-03-23 01:01 | disposition home or self-care (01) ==
PROVIDERS: Physician Assistant; Emergency Provider Internal Medicine; PCP Internal Medicine
DX: G62.9 Polyneuropathy, unspecified (principal); I10 Essential (primary) hypertension; E66.9 Obesity, unspecified; Z68.42 Body mass index [BMI] 45.0-49.9, adult; Z85.118 Personal history of other malignant neoplasm of bronchus and lung; Z87.891 Personal history of nicotine dependence; Z79.899 Other long term (current) drug therapy
CPT/HCPCS: 36415; 80048; 80076; 83735; 84443; 85025; 99283; 99284

== ENCOUNTER 2023-03-29 11:54 | Inpatient (IN) | payer MEDICARE, OTHER, SELFPAY ==
[2023-03-29] VITALS (32 sets, daily range): BP systolic 63–225; BP diastolic 27–145; PULSE 62–88; RESP 12–24; TEMP 36.8–37.1; O2SAT 88–97; BMI 52.4; BMI 45.8
--- NOTE | ~2023-03-29 | XR_ITS ---
EXAMINATION: XR CHEST CLINICAL INFORMATION: Check placement of central line. COMPARISON: 03/29/2023 TECHNIQUE: Frontal view of the chest was obtained. FINDINGS: Right IJ central venous catheter tip terminates over the mid SVC just proximal to the cavoatrial junction. Caloric atherosclerosis is present in the thoracic aorta. Cardiac silhouette is borderline enlarged. There is pulmonary venous congestion which appears slightly more pronounced as compared to prior. No appreciable pulmonary edema. Bibasilar airspace disease is again noted, left side greater than right, silhouetting the left hemidiaphragm. No pneumothorax or pleural effusion. No acute osseous findings. XR/XR chest 1V IMPRESSION: 1. Right IJ central venous catheter tip terminates over the mid SVC just proximal to the cavoatrial junction. 2. Borderline cardiomegaly with pulmonary venous congestion. 3. Bibasilar airspace disease, left side greater than right, unchanged.
--- NOTE | ~2023-03-29 | CT_ITS ---
EXAMINATION: CT CHEST WITHOUT CONTRAST CLINICAL INFORMATION: History of lung cancer. New pneumonia. Sepsis. COMPARISON: CT dated 03/16/[address] abdomen pelvis dated 03/29/2023 TECHNIQUE: Multidetector volumetric CT imaging of the chest was done. Axial MIP volume rendering provided. Sagittal and coronal reformatted images were obtained. This CT examination was performed using dose optimization techniques as appropriate, variously including the following: *Automated exposure control *Adjustment of mA and/or kV according to patient size (this includes techniques or standardized protocols for targeted exams where dose is matched to indication/reason for exam; i.e. extremities or head) *Use of iterative reconstruction technique DLP: 1041 mGy-cm FINDINGS: LUNGS: Interlobular septal thickening is evident in the bases and apices, most consistent with interstitial pulmonary edema. Moderate centrilobular pulmonary edema. Pleural parenchymal scarring is present at the apices. Dependent atelectasis is present in the right lower lobe. Assessment is somewhat limited by respiratory motion artifact, though small foci of consolidation in this region is possible. Dense consolidation is again noted in the left lower lobe, as seen on the CT of the abdomen and pelvis from the same date. There is partial endobronchial opacification in the lower lobes, left greater than right. The previously seen nodules in the right middle lobe and right upper lobe are obscured by the breathing artifact and the more acute parenchymal and interstitial abnormalities. No new nodules are identified. MEDIASTINUM: Calcific atherosclerosis is present in the thoracic aorta is normal in caliber. Mild global cardiomegaly. No adenopathy. Thyroid gland is diminutive. CORONARY ARTERY CALCIFICATION: Moderate PLEURA: There is no pleural effusion. No pleural mass or thickening. AXILLA: No lymphadenopathy. UPPER ABDOMEN: Unremarkable. OSSEOUS STRUCTURES: Multilevel degenerative disc disease in the thoracic spine. No acute osseous findings. CT/CT chest wo IV con IMPRESSION: Left lower lobe consolidation is unchanged as compared to the study from earlier today and more pronounced since the CT from 03/16/2023. This may correspond to pneumonia, though aspiration is also on the differential. Interstitial pulmonary edema.
--- NOTE | ~2023-03-29 | NM_ITS ---
PULMONARY PERFUSION ONLY STUDY: CLINICAL INDICATION: Hypoxia. History of lung cancer. Suspected pulmonary thromboembolism. Chest radiograph done on 03/29/2023 shows left lower lobar airspace disease. PROCEDURE: Following the intravenous administration of 4.0 millicuries technetium 99m MAA, images of the chest were obtained in multiple projections using a gamma scintiphotographic camera. COMPARISON: Chest radiograph done on 03/29/[address] of the chest also done on 03/29/2023. PERFUSION IMAGES: Heterogeneous decreased perfusion at both lung apices and solitary segmental perfusion defect at left lower lobe (best seen in the LPO projection. NM/NM pul perfusion IMPRESSION: Based on perfusion only modified PIOPED 2 criteria, the findings are nondiagnostic for pulmonary thromboembolism. Alternative imaging modality as appropriate is recommended for further clarification.
--- NOTE | ~2023-03-29 | CT_ITS ---
EXAMINATION: CT ABDOMEN AND PELVIS WITHOUT CONTRAST CLINICAL INFORMATION: No bowel movement or urination x3 days COMPARISON: CT chest from 03/16/2013 TECHNIQUE: Multidetector volumetric imaging was performed from the superior aspect of the liver through the pubic symphysis. Sagittal and coronal reformatted images were obtained on the technologist's workstation. This CT examination was performed using dose optimization techniques as appropriate, variously including the following: *Automated exposure control *Adjustment of mA and/or kV according to patient size (this includes techniques or standardized protocols for targeted exams where dose is matched to indication/reason for exam; i.e. extremities or head) *Use of iterative reconstruction technique DLP: 1041 mGy-cm FINDINGS: LUNG BASES: Consolidation of the left lower lobe. Groundglass opacities in the right lower lobe suggesting infectious/inflammatory etiology. No pneumothorax. Coronary artery calcifications are noted. Patient motion/breathing artifact limits evaluation of the mid abdomen. LIVER, GALLBLADDER, AND BILIARY TREE: The liver is normal in size, shape, and attenuation. No focal hepatic lesion or biliary ductal dilatation is present. The gallbladder is surgically absent. PANCREAS: Unremarkable. SPLEEN: Unremarkable. ADRENAL GLANDS: Redemonstration of thickening of the bilateral adrenal glands KIDNEYS AND URETERS: Bilateral renal hypodensities redemonstrated though limited evaluation secondary to motion statistically representing cyst measuring up to 1.3 cm. The kidneys are normal in size, shape, and attenuation. No hydronephrosis, hydroureter, or calculi seen. No perinephric stranding. BLADDER: Unremarkable. GASTROINTESTINAL TRACT: Mild fecal loading of the colon. The small and large bowel are unremarkable. The appendix is unremarkable. ABDOMINAL WALL: No significant hernia is appreciated. LYMPH NODES: No enlarged lymph nodes per size criteria. VASCULAR: Peripherally calcified splenic artery aneurysm measuring up to 10 mm. Abdominal aorta is nonaneurysmal and demonstrates atherosclerotic calcifications. PELVIC VISCERA: Uterus appears atrophied versus surgically absent. OSSEOUS STRUCTURES: Multilevel degenerative changes of the thoracolumbar and lumbosacral spine. CT/CT abdomen pelvis wo IV con IMPRESSION: 1. Consolidation of the left lower lobe. Groundglass opacities in the right lower lobe suggesting infectious/inflammatory etiology. 2. Patient motion/breathing artifact limits evaluation of the mid abdomen. 3. Status post cholecystectomy. 4. Bilateral renal hypodensities redemonstrated though limited evaluation secondary to motion statistically representing cyst measuring up to 1.3 cm. 5. Peripherally calcified splenic artery aneurysm measuring up to 10 mm.
--- NOTE | ~2023-03-29 | XR_ITS ---
EXAMINATION: XR CHEST CLINICAL INFORMATION: Severe dyspnea. COMPARISON: 03/15/2023 chest radiographs. 03/16/[address] scan TECHNIQUE: Frontal view of the chest was obtained. FINDINGS: Mild coarsened interstitial markings are seen bilaterally. Mild left basilar linear markings are seen. The heart and mediastinal structures are unremarkable. XR/XR chest 1V IMPRESSION: Mild left basilar linear markings and emphysematous persistent atelectasis/infiltrate correlating with CT findings with possible mild improvement. Continued short-term radiographic follow-up, preferably with PA and lateral views is recommended to assess for resolution. Chronic interstitial changes consistent with known emphysema.
--- NOTE | ~2023-03-29 | US_ITS ---
EXAMINATION: US VENOUS ULTRASOUND WITH DOPPLER LOWER EXTREMITY, RIGHT CLINICAL INFORMATION: Unilateral edema. Shortness of breath. Rule out DVT. COMPARISON: 06/17/2022 TECHNIQUE: Ultrasound of the deep veins is performed from the hip to the calf with compression sonography and color and pulse Doppler assessment. Spectral analysis with color-flow imaging is performed. FINDINGS: There is normal venous compression and respiratory variation and augmented flow. The visualized common femoral vein, superficial femoral vein, profunda femoral vein, popliteal vein, and the trifurcation region shows no evidence of deep venous thrombosis. There is no significant popliteal fossa cyst. Assessment of the calf vasculature is slightly limited by the body habitus. If the patient's symptoms persist, followup ultrasound in 5 days 7 days might be of value to exclude proximal propagation from a non-visualized calf vein. US/US venous duplex LE RT IMPRESSION: No DVT demonstrated in the right lower extremity.
--- NOTE | 2023-03-29 12:03 | ECG_ITS ---
Test Reason : HYPERTENSION Blood Pressure : / mmHG Vent. Rate : 076 BPM Atrial Rate : 076 BPM P-R Int : 150 ms QRS Dur : 074 ms QT Int : 366 ms P-R-T Axes : 035 -44 -07 degrees QTc Int : 411 ms Normal sinus rhythm Left axis deviation Low voltage QRS Inferior infarct (cited on or before 15-MAR-2023) Cannot rule out Anterior infarct , age undetermined Abnormal ECG When compared with ECG of 15-MAR-2023 16:41, Previous ECG has undetermined rhythm, needs review Referred By: Mihir Castrejon Electronically Signed By:BRO HADDAD MD
--- NOTE | 2023-03-29 12:16 | ED_ITS ---
HPI - General Adult General Chief complaint: Dyspnea Stated complaint: sob x 1 day, hx of copd Time Seen by Provider: 03/29/23 12:16 Source: patient and family (son) Mode of arrival: EMS Limitations: no limitations History of Present Illness HPI narrative: Patient is a 72-year-old female history of COPD, morbid obesity, DANA, pneumonia presenting to the emergency department with shortness of breath since yesterday. Son reports patient has not urinated or had bowel movements since 7:00 p.m. Monday. Reports decreased appetite states patient has been taking small sips of water as well as small amounts of food. Patient denies any chest pain, abdominal pain, or other pain. Son denies any fever. MD complaint: Shortness of breath Onset (ago): day(s) Associated symptoms: loss of appetite and other (has not urinated or had BM since Monday night) Treatments prior to arrival: none Related Data Home Medications Medication Instructions Recorded Confirmed acetaminophen 325 mg capsule 650 mg PO BEDTIME PRN Pain 03/15/23 03/29/23 (Tylenol) ascorbic acid (vitamin C) 500 mg 500 mg PO DAILY 03/15/23 03/29/23 tablet (Vitamin C) furosemide 80 mg tablet 80 mg PO DAILY 03/15/23 03/29/23 lisinopril 20 mg tablet 20 mg PO DAILY 03/15/23 03/29/23 metoprolol succinate 100 mg 100 mg PO DAILY 03/15/23 03/29/23 tablet,extended release 24 hr tramadol 50 mg tablet 50 mg PO TID PRN Pain 03/15/23 03/29/23 nicotine (polacrilex) 2 mg gum 2 mg buccal Q2H PRN Nicotine 03/29/23 03/29/23 Cravings pregabalin 50 mg capsule (Lyrica) 100 mg PO BID 03/29/23 03/29/23 Previous Rx's Medication Instructions Recorded albuterol sulfate 2.5 mg/3 mL 2.5 mg (3 mL) inhalation Q4H PRN 03/22/23 (0.083 %) solution for nebulization shortness of breath or wheezing #75 mL Allergies Allergy/AdvReac Type Severity Reaction Status Date / Time PCN Allergy Unknown rash Uncoded 03/15/23 16:50 Penicillin Allergy Unknown rash Uncoded 03/15/23 16:50 PredniSONE Allergy Unknown high dose Uncoded 03/15/23 16:50 gives her rashes prednisone Allergy Unknown rash Uncoded 03/15/23 16:50 Review of Systems Review of Systems: As per HPI. Yes all other systems are reviewed and are negative Constitutional: Constitutional: Reports as per HPI [facility] Past Medical History Medical History Carpal tunnel syndrome, left High blood pressure Lung cancer Nerve pain Pneumonia Surgical History H/O: hysterectomy Social History Social History Household Members: Spouse Housing: Condominium Do you presently have visiting nurse or other home services: No Alcohol intake: never Patient Tobacco Use Status: Current everyday Tobacco user Tobacco use type: Cigarette Cigarette Packs Per Day: 0.5 Cigarettes Per Day: 10.0 Smoked in Last 30 Days: No Use of substances other than those prescribed or required for medical reasons: No Advance Directives: Yes Advance Directives Information Provided: No Advance Directives on File: No service: No Current occupational status: retired Current occupation: left handed Physical Exam ED Vital Signs: Vital Signs - 24 hr 03/29/23 12:16 03/29/23 13:50 03/29/23 14:50 Temperature 98.6 F 98.5 F 98.8 F Pulse Rate 77 79 72 Respiratory Rate 20 16 16 Blood Pressure 225/142 H 138/114 H 86/67 L Pulse Oximetry 91 L 91 L 93 Oxygen Delivery Method Nasal Cannula Nasal Cannula Room Air Oxygen Flow Rate 3 03/29/23 15:43 03/29/23 16:11 Temperature Pulse Rate 74 75 Respiratory Rate 18 20 Blood Pressure 63/27 L 65/36 L Pulse Oximetry 97 95 Oxygen Delivery Method Room Air Room Air Oxygen Flow Rate BMI result Body Mass Index 52.4 Vital signs have been reviewed and appear to be correct. Blood pressure hypertensive. Heart rate normal. Respiratory rate normal. Temperature normal. Oxygen saturation low. Const General: cooperative, no acute distress, awake and other (drowsy, wakes easily to voice) Nutritional Appearance: obese Orientation/consciousness: oriented to person, oriented to place, oriented to time and patient oriented x3 Limitations: no limitations HENMT Head: Yes normocephalic and Yes atraumatic Ears: external ears normal General nose exam: Normal external nose present Face and sinus: Yes face symmetric Mouth: oropharynx normal and moist mucous membranes Throat: Yes uvula midline Eyes Pupils: Equal, round and reactive pupils present Neck Neck: Yes normal visual inspection and Yes supple Resp Effort & Inspection: normal respiratory effort and able to speak in complete sentences Auscultation: diminished lung sounds diffuse Cardio Rate: regular rate Rhythm: regular rhythm Heart sounds: S1 normal heart sound present and S2 normal heart sound present GI Palpation (GI): Soft to palpation and nontender Auscultation: normoactive bowel sounds General: Yes no CVA tenderness Back/Spine/Pelvis Back: no CVA tenderness Skin General skin exam: elasticity normal and turgor normal Neuro General: oriented to person, oriented to place, oriented to time, patient orien howard x3, moves all extremities, no focal motor deficits and CN's II-XI intact bilaterally Cranial nerves: Yes Equal, round and reactive pupils present Cognition (Neuro): normal cognition Extrem General: Yes full ROM, Yes no pedal edema and Yes no calf tenderness Psych Mental Status: mental status grossly normal Affect: normal affect Thought process: Normal thought process present Medications Administered Generic Name Dose Route Start Last Admin Trade Name Freq PRN Reason Stop Dose Admin Sodium Chloride 1,000 mls @ 999 mls/hr 03/29/23 16:00 03/29/23 16:13 Ns IV 03/29/23 17:00 999 mls/hr .Q1H1M LE Administration Discontinued Medications Generic Name Dose Route Start Last Admin Trade Name Freq PRN Reason Stop Dose Admin Piperacillin Sod/Tazobactam 50 mls @ 100 mls/hr 03/29/23 13:36 03/29/23 14:07 Sod 3.375 gm/ Sodium Chloride IV 03/29/23 14:05 100 mls/hr ONCE ONE Administration Vancomycin HCl 2,000 mg in 500 mls @ 250 mls/hr 03/29/23 13:36 03/29/23 14:50 Vancomycin/Ns IV 03/29/23 15:35 250 mls/hr ONCE ONE Administration Sodium Chloride 1,000 mls @ 999 mls/hr 03/29/23 14:00 03/29/23 15:10 Ns IV 03/29/23 15:00 Infused .Q1H1M LE Infusion Sodium Chloride 1,000 mls @ 999 mls/hr 03/29/23 15:15 03/29/23 15:15 Ns IV 03/29/23 16:15 999 mls/hr .Q1H1M LE Administration Labetalol HCl 5 mg 03/29/23 13:17 03/29/23 13:54 Labetalol Hcl 100 Mg/20 Ml Vial IVPUSH 03/29/23 13:18 5 mg ONCE ONE Administration Medical Decision Making Medical Decision Making MDM Narrative: Patient is a 72-year-old female history of COPD, morbid obesity, DANA, pneumonia presenting to the emergency department with shortness of breath since yesterday. On exam patient is awake, A+Ox3, hypertensive, O2 91%, afebrile, normal neurological exam without focal deficits, LS diminished throughout, abdomen soft and nontender, no lower extremity edema, bladder scan shows 21mL. Given reported symptoms and physical exam findings, initial differential includes DANA, renal vascular disease, obstructive nephropathy, infected stone, COPD exacerbation, pneumonia. 13:39 WBCs 33.0, concern for sepsis, Vanco and Zosyn ordered. Sepsis alert called. IV fluids deferred at this time given patient's BP. Chest x-ray shows LLL pneumonia. 13:54 Critical Cr of 5.51 received from lab, will order 1L IV fluids at this time as patient is extremely hypertensive. Hyponatremia, patient being given NS. Will contact renal for further recommendations. 14:[address] Rand from renal who recommends renal U/S to rule out obstruction, orders placed. 15:13 Patient now hypotensive per nursing, BP's similar bilaterally , low concern for aortic dissection or AAA rupture as patient continues to deny abdominal pain. Additional IV fluids ordered, CT abdomen ordered. 15:50 Patient now hypotensive to 63/27, including manual BP bilaterally. Patient mentating appropriately, continues to deny any complaints of pain. Third liter of IV fluids ordered which will complete 30mg/kg fluids based on adjusted ideal body weight. Dr. Dubon advised of BP and plan. 16:[address] Marquez who agrees patient requires admission to ICU. Norepinephrine started. Differential Diagnosis Differential Diagnoses: The differential diagnosis associated with the presentation includes As per MDM. Admission/Observation Consideration of admission/observation: Escalation of care including admission/observation considered Consult Healthcare Provider Management of the patient was discussed with: Solvent Station Attendant (Dr. Rand, renal; Dr. Castrejon) Lab Data [facility] Lab Attestation statement: I reviewed the patient's lab results. As per MDM. 03/29/23 13:16 03/29/23 13:16 Labs: Lab Results 03/29/23 03/29/23 03/29/23 Range/Units 13:16 13:16 13:16 WBC 33.9 H* (4.8-10.8) X10*3/uL RBC 4.40 (4.20-5.50) X10*6/uL Hgb 12.7 (12.0-16.0) g/dl Hct 40.4 (37.0-47.0) % MCV 91.8 (80.0-98.0) fL MCH 28.9 (27.0-33.0) pg MCHC 31.4 (31.0-35.0) g/dl RDW 15.7 (11.0-16.0) % Plt Count 265 (160-400) X10*3/uL MPV 10.8 (9.4-12.3) fL Immature Gran % (Auto) 0.8 H (0.0-0.4) % Neut % (Auto) 90.9 H (45-73) % Lymph % (Auto) 3.4 L (20-40) % [place] % (Auto) 4.7 (2-11) % Eos % (Auto) 0.0 (0-4) % Baso % (Auto) 0.2 (0-2) % Lymph # (Auto) 1.2 (1.2-4.9) X10*3/uL [place] # (Auto) 1.6 H (0.1-1.2) X10*3/uL Eos # (Auto) 0.0 (0.0-0.4) X10*3/uL Baso # (Auto) 0.1 (0.0-0.2) X10*3/uL Abs Immat Gran (auto) 0.28 H (0.00-0.03) X10*3/uL Absolute Neuts (auto) 30.7 H (2.0-8.3) x10*3/uL Absolute Nucleated RBC 0.000 (0.0-0.012) X10*3/uL Nucleated RBC % (auto) 0.0 (0.0-0.2) /100WBC Smear Tech's Comments VERIFIED VBG pH (7.32-7.43) VBG pCO2 mmHg VBG pO2 mmHg VBG HCO3 (22-26) mmol/L VBG O2 Saturation % VBG Base Excess mmol/L Sodium 128 L (135-145) mmol/L Potassium 5.0 (3.3-5.1) mmol/L Chloride 88 L (96-108) mmol/L Carbon Dioxide 27 (22-29) mmol/L Anion Gap 18 (12-20) BUN 80 H (9-16) mg/dL Creatinine 5.51 H* (0.5-1.4) mg/dL Estim Creat Clear Calc TNP Estimated GFR 8 Random Glucose 137 H (60-115) mg/dL Lactic Acid 1.3 (0.5-2.0) mmol/L Calcium 8.7 D (8.4-10.2) mg/dL Total Bilirubin 0.6 (0.0-1.0) mg/dL AST 26 (5-31) U/L ALT 45 H (0-31) U/L Alkaline Phosphatase 131 H (39-117) U/L Troponin I High Sens (<3.5-17.0) ng/L B-Natriuretic Peptide (<100) pg/mL Total Protein 6.4 L (6.5-8.0) g/dL Albumin 3.1 L (3.5-5.0) g/dL COVID-19 ([facility]) (Negative) COVID-19 Clin Com Influenza Type A ([facility]) (Negative) Influenza Type B ([facility]) (Negative) Influenza A & B Note 03/29/23 03/29/23 03/29/23 Range/Units 13:16 13:16 13:16 WBC (4.8-10.8) X10*3/uL RBC (4.20-5.50) X10*6/uL Hgb (12.0-16.0) g/dl Hct (37.0-47.0) % MCV (80.0-98.0) fL MCH (27.0-33.0) pg MCHC (31.0-35.0) g/dl RDW (11.0-16.0) % Plt Count (160-400) X10*3/uL MPV (9.4-12.3) fL Immature Gran % (Auto) (0.0-0.4) % Neut % (Auto) (45-73) % Lymph % (Auto) (20-40) % [place] % (Auto) (2-11) % Eos % (Auto) (0-4) % Baso % (Auto) (0-2) % Lymph # (Auto) (1.2-4.9) X10*3/uL [place] # (Auto) (0.1-1.2) X10*3/uL Eos # (Auto) (0.0-0.4) X10*3/uL Baso # (Auto) (0.0-0.2) X10*3/uL Abs Immat Gran (auto) (0.00-0.03) X10*3/uL Absolute Neuts (auto) (2.0-8.3) x10*3/uL Absolute Nucleated RBC (0.0-0.012) X10*3/uL Nucleated RBC % (auto) (0.0-0.2) /100WBC Smear Tech's Comments VBG pH (7.32-7.43) VBG pCO2 mmHg VBG pO2 mmHg VBG HCO3 (22-26) mmol/L VBG O2 Saturation % VBG Base Excess mmol/L Sodium (135-145) mmol/L Potassium (3.3-5.1) mmol/L Chloride (96-108) mmol/L Carbon Dioxide (22-29) mmol/L Anion Gap (12-20) BUN (9-16) mg/dL Creatinine (0.5-1.4) mg/dL Estim Creat Clear Calc Estimated GFR Random Glucose (60-115) mg/dL Lactic Acid (0.5-2.0) mmol/L Calcium (8.4-10.2) mg/dL Total Bilirubin (0.0-1.0) mg/dL AST (5-31) U/L ALT (0-31) U/L Alkaline Phosphatase (39-117) U/L Troponin I High Sens 12.7 D (<3.5-17.0) ng/L B-Natriuretic Peptide 114 H (<100) pg/mL Total Protein (6.5-8.0) g/dL Albumin (3.5-5.0) g/dL COVID-19 ([facility]) (Negative) COVID-19 Clin Com Influenza Type A ([facility]) Negative (Negative) Influenza Type B ([facility]) Negative (Negative) Influenza A & B Note See Note 03/29/23 03/29/23 Range/Units 13:16 14:34 WBC (4.8-10.8) X10*3/uL RBC (4.20-5.50) X10*6/uL Hgb (12.0-16.0) g/dl Hct (37.0-47.0) % MCV (80.0-98.0) fL MCH (27.0-33.0) pg MCHC (31.0-35.0) g/dl RDW (11.0-16.0) % Plt Count (160-400) X10*3/uL MPV (9.4-12.3) fL Immature Gran % (Auto) (0.0-0.4) % Neut % (Auto) (45-73) % Lymph % (Auto) (20-40) % [place] % (Auto) (2-11) % Eos % (Auto) (0-4) % Baso % (Auto) (0-2) % Lymph # (Auto) (1.2-4.9) X10*3/uL [place] # (Auto) (0.1-1.2) X10*3/uL Eos # (Auto) (0.0-0.4) X10*3/uL Baso # (Auto) (0.0-0.2) X10*3/uL Abs Immat Gran (auto) (0.00-0.03) X10*3/uL Absolute Neuts (auto) (2.0-8.3) x10*3/uL Absolute Nucleated RBC (0.0-0.012) X10*3/uL Nucleated RBC % (auto) (0.0-0.2) /100WBC Smear Tech's Comments VBG pH 7.32 (7.32-7.43) VBG pCO2 67 mmHg VBG pO2 36 mmHg VBG HCO3 35 H (22-26) mmol/L VBG O2 Saturation 57.0 % VBG Base Excess 7.0 mmol/L Sodium (135-145) mmol/L Potassium (3.3-5.1) mmol/L Chloride (96-108) mmol/L Carbon Dioxide (22-29) mmol/L Anion Gap (12-20) BUN (9-16) mg/dL Creatinine (0.5-1.4) mg/dL Estim Creat Clear Calc Estimated GFR Random Glucose (60-115) mg/dL Lactic Acid (0.5-2.0) mmol/L Calcium (8.4-10.2) mg/dL Total Bilirubin (0.0-1.0) mg/dL AST (5-31) U/L ALT (0-31) U/L Alkaline Phosphatase (39-117) U/L Troponin I High Sens (<3.5-17.0) ng/L B-Natriuretic Peptide (<100) pg/mL Total Protein (6.5-8.0) g/dL Albumin (3.5-5.0) g/dL COVID-19 ([facility]) Negative (Negative) COVID-19 Clin Com See Note Influenza Type A ([facility]) (Negative) Influenza Type B ([facility]) (Negative) Influenza A & B Note Independent Interpretation I performed an independent interpretation of an: EKG and Plain X-Ray Interpretation: EKG: normal sinus rhythm, rate 76bpm, normal IN and QT intervals Left lower lobe pneumonia on CXR Radiology Impression Discussion of test interpretation with radiology: I have reviewed the radiologist's reading. Radiologist Impression: FINDINGS: Mild coarsened interstitial markings are seen bilaterally. Mild left basilar linear markings are seen. The heart and mediastinal structures are unremarkable. XR/XR chest 1V IMPRESSION: Mild left basilar linear markings and emphysematous persistent atelectasis/infiltrate correlating with CT findings with possible mild improvement. Continued short-term radiographic follow-up, preferably with PA and lateral views is recommended to assess for resolution. ? Chronic interstitial changes consistent with known emphysema. Independent Historian Clinical information obtained from an independent historian. History obtained from or confirmed by: Other (son) External Record Review External record reviewed: Inpatient record, Office record and Outpatient record Prescription Management I considered prescription management with: Antibiotic Critical Care Time Critical Care Time Critical Care Time: Yes Total Critical Care Time: 40 Attestation: I have personally provided critical care time exclusive of time spent on separately billable procedures. Time includes review of lab data, radiology results, discussion with consultants, and monitoring for potential decompensation. Intervention performed as documented. Discharge Plan Discharge Clinical Impression: Pneumonia, Sepsis, Sepsis associated hypotension, Acute kidney injury Patient Disposition: Admitted As Inpatient
[2023-03-29 13:23] LABS: Basophils Absolute Auto 0.1 X10*3/uL (0.0-0.2); Basophils Percent Auto 0.2 % (0-2); Hematocrit 40.4 % (37.0-47.0); Hemoglobin 12.7 g/dl (12.0-16.0); Imm Gran Abs Auto 0.28 X10*3/uL (0.00-0.03); Imm Gran Pct Auto 0.8 % (0.0-0.4); Lymphocytes Absolute Auto 1.2 X10*3/uL (1.2-4.9); Lymphocytes Percent Auto 3.4 % (20-40); MANUAL DIFF FLAG SCAN; Mean Corpuscular HGB Conc 31.4 g/dl (31.0-35.0); Mean Corpuscular Hemoglobin 28.9 pg (27.0-33.0); Mean Corpuscular Volume 91.8 fL (80.0-98.0); Mean Platelet Volume 10.8 fL (9.4-12.3); Monocytes Absolute Auto 1.6 X10*3/uL (0.1-1.2); Monocytes Percent Auto 4.7 % (2-11); Neutrophils Absolute Auto 30.7 x10*3/uL (2.0-8.3); Neutrophils Percent Auto 90.9 % (45-73); Platelet Count 265 X10*3/uL (160-400); Red Cell Distribution Width 15.7 % (11.0-16.0); SCAN SMEAR FLAG 1
[2023-03-29 13:27] LABS: White Blood Count 33.9 X10*3/uL (4.8-10.8)
[2023-03-29 13:37] LABS: Lactic Acid 1.3 mmol/L (0.5-2.0)
[2023-03-29 13:43] LABS: SLIDE REVIEW VERIFIED
[2023-03-29 13:47] LABS: B Type Natriuretic Peptide 114 pg/mL (<100)
[2023-03-29 13:48] LABS: Troponin-I High Sensitivity 12.7 ng/L (<3.5-17.0)
[2023-03-29 13:49] LABS: COVID-19 Test Negative (Negative); IDNOW Serial# 08D9AD1C
[2023-03-29 13:51] LABS: IDNOW Serial# 9DB6401D; Influenza A Negative (Negative); Influenza B2 Negative (Negative)
[2023-03-29 13:53] LABS: Alanine Aminotransferase 45 U/L (0-31); Albumin Level 3.1 g/dL (3.5-5.0); Alkaline Phosphatase 131 U/L (39-117); Anion Gap 18 (12-20); Aspartate Amino Transferase 26 U/L (5-31); Bilirubin Total 0.6 mg/dL (0.0-1.0); Blood Urea Nitrogen 80 mg/dL (9-16); Calcium 8.7 mg/dL (8.4-10.2); Carbon Dioxide 27 mmol/L (22-29); Chloride 88 mmol/L (96-108); Estimated Glomerular Filt Rate 8; Glucose Random 137 mg/dL (60-115); Sodium 128 mmol/L (135-145); Total Protein 6.4 g/dL (6.5-8.0)
[2023-03-29] MEDS: Labetalol HCL 100 MG/20 ML VIAL IVPUSH (13:54)
[2023-03-29] MEDS: Piperacillin Sodium/Tazobactam 3.375 GM in 0.9 % Sodium Chloride 50 ML IV (14:07)
[2023-03-29] MEDS: 0.9 % Sodium Chloride 1,000 ML 999 ML IV ×4 (14:07→16:51)
[2023-03-29 14:42] LABS: VBG HCO3 35 mmol/L (22-26); VBG pCO2 67 mmHg; VBG pH 7.32 (7.32-7.43); VBG pO2 36 mmHg
[2023-03-29 14:43] LABS: Venous Blood Gas Refer to POC result
--- NOTE | 2023-03-29 14:45 | MHC.CM.ED ---
Received notification from [facility] that patient is active with their agency. Referral made in [facility] so [facility] can follow for d/c needs.
[2023-03-29] MEDS: vancomycin/NS 2,000 MG/500 ML PLAST..BAG 250 MG IV (14:50)
--- NOTE | 2023-03-29 15:19 | PHA.MEDREC ---
Pharmacy Consult ? Medication Reconciliation Pharmacy has completed the medication reconciliation. Tried speaking with patient however she was drowsy and confused on a lot of her medications. Called her PCP office to verify DC'ed Gabapentin and her starting pregabalin. She was unable to pick pack worker the ipratropium-albuterol solution b/c it is on backorder per [facility]. It seems like another prescription was sent for the albuterol solution but [facility] nor the claim history has the prescription so I don't think she has picked that up either. Used claim history and previous discharge packet to finish med rec.
[2023-03-29] MEDS: Norepinephrine Bitartrate/D5W 8 MG/250 ML PLAST..BAG 12.59 MG IV ×2 (16:52→20:26)
[2023-03-29] MEDS: cefEPime HCl 1 GM in 0.9 % Sodium Chloride 50 ML IV (17:52)
[2023-03-29] MEDS: Heparin Sodium,Porcine 5,000 UNIT/ML VIAL 5000 UNIT SUBCUT (17:52)
[2023-03-29] MEDS: Albumin Human 25 % 100 ML 133.33 ML IV (17:57)
[2023-03-29 18:35] LABS: VBG Base Excess -4.5 mmol/L; VBG HCO3 19 mmol/L (22-26); VBG pCO2 30 mmHg; VBG pO2 215 mmHg
[2023-03-29 18:39] LABS: Lactic Acid 1.8 mmol/L (0.5-2.0)
[2023-03-29 18:53] LABS: Venous Blood Gas Refer to POC result
[2023-03-29] MEDS: Lactated Ringers 1,000 ML 150 ML IVCONT (19:39)
[2023-03-29] MEDS: Albuterol/Iprat 2.5/0.5MG 3 ML AMPUL.NEB INHALE (20:26)
[2023-03-29] MEDS: methylPREDNISolone Sod Succ 125 MG/2 ML VIAL IVPUSH (20:29)
[2023-03-29] MEDS: HYDROmorphone HCl 0.5 MG/0.5 ML SYRINGE IVPUSH (20:52)
[2023-03-29 21:39] LABS: VBG HCO3 22 mmol/L (22-26); VBG pCO2 47 mmHg; VBG pH 7.28 (7.32-7.43); VBG pO2 49 mmHg
[2023-03-29 21:43] LABS: Basophils Absolute Auto 0.1 X10*3/uL (0.0-0.2); Basophils Percent Auto 0.2 % (0-2); Eosinophils Absolute Auto 0.1 X10*3/uL (0.0-0.4); Eosinophils Percent Auto 0.2 % (0-4); Hematocrit 35.4 % (37.0-47.0); Hemoglobin 11.3 g/dl (12.0-16.0); Imm Gran Abs Auto 0.22 X10*3/uL (0.00-0.03); Imm Gran Pct Auto 0.7 % (0.0-0.4); Lymphocytes Absolute Auto 2.2 X10*3/uL (1.2-4.9); Lymphocytes Percent Auto 7.5 % (20-40); MANUAL DIFF FLAG SCAN; Mean Corpuscular HGB Conc 31.9 g/dl (31.0-35.0); Mean Corpuscular Hemoglobin 29.8 pg (27.0-33.0); Mean Corpuscular Volume 93.4 fL (80.0-98.0); Mean Platelet Volume 10.9 fL (9.4-12.3); Monocytes Absolute Auto 1.7 X10*3/uL (0.1-1.2); Monocytes Percent Auto 5.6 % (2-11); Neutrophils Absolute Auto 25.5 x10*3/uL (2.0-8.3); Neutrophils Percent Auto 85.8 % (45-73); Platelet Count 258 X10*3/uL (160-400); Red Blood Count 3.79 X10*6/uL (4.20-5.50); Red Cell Distribution Width 15.8 % (11.0-16.0); SCAN SMEAR FLAG 1; White Blood Count 29.8 X10*3/uL (4.8-10.8)
[2023-03-29 21:48] LABS: SLIDE REVIEW VERIFIED
--- NOTE | 2023-03-29 21:59 | P.HPCC_ITS ---
History of Present Illness Date of Service: 03/29/23 Attending physician on admission: John Marquez Chief Complaint: Septic Shock / [facility] / DANA HPI: ?72-year-old obese female with underlying history of non O2 dependent COPD in the setting of a 55 pack-year history of tobacco consumption up until a week ago, hypertension, left upper lobe lung cancer status post radiotherapy followed by Dr. Stapleton at [facility] last appointment in September, reports that has a chronic history of shortness of breath for the past 3 years without requirement of oxygen but has gotten worse over the past 1 week with associated weakness and mild sputum production over the last 24 hours.? The patient came to the hospital and was seen in the emergency room where she was transferred via EMS. ? In the ER, the patient's son reported patient has been short of breath for a week requiring new administration of oxygen, she has not had a bowel movement for several days and has not urinated for about 3 days which is concerning to him in addition to fact that she has been taking small sips of water and has not been eating properly.? Patient did admit to shortness of breath as above mention but no fever chills. Her workup in the ER initially reveal significant hypertension with blood p ressure of 225/142, satting 91% on 3 L nasal cannula and afebrile, not tachycardic or tachypneic.? She was given 5 mg of labetalol IV and became hypotensive at 86/67, subsequently her workup revealed a white count of 33.9, H&H 12.7 and 40.4 respectively, sodium 1 28, potassium 5.0, chloride 88, carbon dioxide 27, BUN 80, creatinine 5.51 (baseline 1 point 1 8), lactic acid 1.3.? Respiratory panel negative. ?Patient was given total of 4 L of IV fluids, started on vancomycin and Zosyn, given albumin but despite of all this, patient continued to be hypotensive, patient was then started on Levophed but quickly became hypertensive therefore this was discontinued and the patient was then hypotensive again and was transferred to the ICU. ? During my evaluation the patient confirms all the above and reports that that has been a bilateral among providers on whether not she should continue with her water pill, does not report any more swollen than usual, however her shortness of breath has gotten worse over the past week requiring new oxygen administration at 3 L nasal cannula.? She does have a history of cancer and has not seen her oncologist and September of this year, she did not receive regina motherapy or surgery. Admits to not having urinary output for the past 3-4 days although she attributes this to not drinking enough water. ?In regards to her bowel movement, she states that is normal for her not to go for 2-3 days. ? Review of systems: As above, otherwise the patient denies any prior history of strokes, cold intolerance, migraine headaches, head trauma, no eyes, ears or nose problems, no problems swallowing or with phonation, no thyroid disease, denies any history of chest pain, palpitations, coronary disease, abdominal pain, nausea, vomiting, diarrhea, abdominal surgeries, melena, hematochezia, hematemesis, denies kidney or liver problems, no history of DVT or PE, fractures or extremity surgeries all other review of systems were reviewed and they were all negative. ? Past Medical History: ?As above ? Past Surgical History: Hysterectomy Left carpal tunnel surgery ? Family history:? Father in his 80s of prostate cancer, sister lung cancer but was never smoker.? Mom had lung cancer in her 80s. ? Social History:? Lives at home with her , has a 55 pack-year history of tobacco consumption, smoking until a week ago.? Denies alcohol or drugs.? Uses a electric cart to get around. ? CODE STATUS: ?DNR DNI as per today's discussion ? Allergies: ?Penicillin (rash) ? Home Medications: See Med Rec ? SEPSIS PHYSICAL EXAM DONE AT 730 PM: VS: 85/47; 77; 22; 92% oxymask 4L; 98.3 F General: ?Mild respiratory distress with accessory muscle uses an expiratory wheezing Alert oriented x3 no acute distress.? Speaking full sentences.? Speech is well articulated, thought process is coherent.? Following all commands. Skin: ?Seborrheic keratosis lesions throughout the whole body, otherwise Intact, right lower extremity edema 1+ pitting up to tibial plateau and clearly asymmetric in comparison to the left, erythema, clubbing or cyanosis.? No ulcers. HEENT:? Head is normocephalic, atraumatic, pupils equal round reactive to light accommodation bilaterally.? Extraocular movements appear intact.? Buccal mucosa is moist, Neck is supple without lymphadenopathy. Cardiac:? Clear S1-S2, no murmurs rubs or gallops. Pulmonary:? Significantly diminished lung sounds bilaterally with very little air movement throughout, no air movement noted throughout the left lower lobe.? Right lower lobe rhonchi with egophony changes, no crackles bilaterally. Abdomen:? Protuberant, positive bowel sounds in all 4 quadrants.? Soft, n ontender, no rebound or guarding.? Musculoskeletal:? Moving all 4 extremities upon request a major joints, there is no crepitus or tenderness. ?Right lower extremity edema as above mentioned, no calf tenderness.? No Homans sign. ?no leg asymmetry.? Neurologic:? As above, cranial nerves 2-12 are grossly intact.? No focal deficits noted. Vascular:? 2+ pulses upper and lower extremities distally. ?Less than 2nd capillary refill of the finger and toes bilaterally. ? SIGNIFICANT LABORATORY DATA:? As above ? REVIEW OF IMAGES: Chest x-ray IMPRESSION: Mild left basilar linear markings and emphysematous persistent atelectasis/infiltrate correlating with CT findings with possible mild improvement. Continued short-term radiographic follow-up, preferably with PA and lateral views is recommended to assess for resolution. ? CT ABDOMEN PELVIS WITHOUT CONTRAST IMPRESSION: 1.? Consolidation of the left lower lobe. Groundglass opacities in the right lower lobe suggesting infectious/inflammatory etiology. 2.? Patient motion/breathing artifact limits evaluation of the mid abdomen. 3.? Status post cholecystectomy. 4.? Bilateral renal hypodensities redemonstrated though limited evaluation secondary to motion statistically representing cyst measuring up to 1.3 cm. 5.? Peripherally calcified splenic artery aneurysm measuring up to 10 mm. Chronic interstitial changes consistent with known emphysema. ? CHEST CT IMPRESSION: Left lower lobe consolidation is unchanged as compared to the study from earlier today and more pronounced since the CT from 03/16/2023. This may correspond to pneumonia, though aspiration is also on the differential.Interstitial pulmonary edema.? ? ? EKG REVIEW: ?To my view disease sinus rhythm with heart rate of 76 beats per minute, left axis deviation, there is no ST elevations, no ST depressions.? Age-indeterminate changes in the inferior leads which appear to be present prior study from March 15 2023. ? ASSESSMENT : 1. Acute septic shock 2. Left lung community-acquired pneumonia 3. Acute COPD exacerbation 4. Acute Hypoxic respiratory failure (multifactorial) consider PE 5. Acute kidney injury (baseline creatinine 1.2) likely prerenal and intrarenal (ATN) in the setting of diuretics and LYLE-inhibitor, poor p.o. intake 6. Hypoalbuminemia 7. Hypo osmolar hypovolemic hyponatremia 8. Urinary retention 9. Hyperphosphatemia due to DANA 10. Underlying history of lung cancer status post radiation therapy 11. Code status DNR DNI 12. Morbid obesity with BMI of 52.4 ? PLAN OF CARE: Patient readmitted to ICU, monitor vital signs, I and O's, despite of 4 L IV flu ids and albumin the patient continues to be hypotensive, will start her on Levophed and place a central line. ?Rocephin and Zithromax, Solu-Medrol, DuoNebs and albuterol, sputum culture Gram stain, will repeat laboratories later on tonight and continue with IV fluids. Initially, the patient was not making any urine, upon rescanning her bladder, she appears to be retaining about 600 cc of urine, Ken catheter will be placed, will order a dry CT of the chest to further define the degree of her pneumonia and or masses no noted on the limited cuts from the abdomen and pelvis. The patient has continued to require oxygen supplementation which is totally new for the past week or so and even here at 3 L nasal cannula, she will go down to 86% every now and then despite of taking deep breaths, I am concerned that the patient may have underlying pulmonary embolism given her history of cancer, will start her on heparin drip and will order a V/Q scan for the morning. Patient's son at bedside was updated. ? GI PROPHYLAXIS: ?IV PPI DVT PROPHYLAXIS: ?Heparin gtt until nuclear Per/Vent study done in am Sepsis follow-up exam andClinical update 2 a.m. on 03/30/2023 patient is showing slow improvement, not as hypoxic, does not have any more usage of accessory muscles to breathe. She remains afebrile. Recheck laboratories show decrease of her white count as well as improvement of her renal function with a creatinine going down and currently at 4.4. General:? Alert oriented x3 no acute distress.? Speaking full sentences.? Speech is well articulated, thought process is coherent.? Following all commands. Skin:? no changes Cardiac:? Clear S1-S2, no murmurs rubs or gallops. Pulmonary:? Significantly diminished lung sounds bilaterally with very little air movement throughout, no air movement noted throughout the left lower lobe.? Right lower lobe rhonchi with egophony changes, no crackles bilaterally. Abdomen:? Protuberant, positive bowel sounds in all 4 quadrants.? Soft, nontender, no rebound or guarding.?? Musculoskeletal:? Moving all 4 extremities upon request a major joints, edema RL ext unchanged Vascular:? 2+ pulses upper and lower extremities distally.? Less than 2nd capillary refill of the finger and toes bilaterally. Will continue with the above plan of care, repeat labs in the morning. Appreciate Nephrology input. ? Critical care time used for critical evaluation of this patient, diagnosis, treatment and coordination of care, review her records and documentation TOTAL CRITICAL CARE TIME 120?MIN . discussion and coordination with consultants, completely separate from any procedures performed. Patient's care was discussed in detail with Dr. Marquez.? He is aware of all the above as well as the plan of care for this patient. [facility] Past Medical History Medical History Carpal tunnel syndrome, left High blood pressure Lung cancer Nerve pain Pneumonia Surgical History Surgical History H/O: hysterectomy Social History Social History Household Members: Spouse Housing: Condominium Do you presently have visiting nurse or other home services: Yes ([facility]) Alcohol intake: never Patient Tobacco Use Status: Former Tobacco user Tobacco use type: Cigarette Cigarette Packs Per Day: 1 Cigarettes Per Day: 20.0 Smoked in Last 30 Days: Yes e-Cigarette/Vaping Use: Never Used Patient Interested in Nicotine Replacement: No Patient Given Instructions on How to Stop Smoking: Yes Date Education Initiated: 03/29/23 Second Hand Smoke Exposure: No Use of substances other than those prescribed or required for medical reasons: No Currently Displaying Signs/Symptoms of Drug Intoxication Withdrawal: No Any prior treatment program specific to substance use: No Have you been hit, kicked, punched, or otherwise hurt by someone within the past year? If so, by whom?: No Do you feel safe in your current relationship?: Yes Is there a partner from a previous relationship who is making you feel unsafe now?: No Are you made to feel afraid or neglected: No Advance Directives: Yes Advance Directives Information Provided: No Advance Directives on File: No Advance Directives Date on File: 03/23/23 Do you have thoughts of harming others: None Do you have a plan to hurt others: No Plan Recently lost weight without trying: Yes How much weight loss: 2-13 pounds Eating poorly because of decreased appetite: Yes Nutrition screen score: 4 Nutrition Risks: On aspiration precautions and Poor intake 0-25% >4 days Patient : No : No Poor oral hygiene: No service: No Current occupational status: retired Current occupation: left handed Meds Allergies Allergy/AdvReac Type Severity Reaction Status Date / Time Penicillin Allergy Unknown rash Uncoded 03/15/23 16:50 Active Medications: Current Medications Albuterol Sulfate (Albuterol Sulfate (0.083%) 2.5 Mg/3 Ml Vial.Neb) 2.5 mg INHALE Q2H PRN PRN Reason: Wheezing Albuterol/Ipratropium (Albuterol/Iprat 2.5/0.5mg 3 Ml Ampul.Neb) 3 ml INHALE RQ6H [facility] Last Admin: 03/29/23 20:26 Dose: 3 ml Heparin Sodium (Porcine) (Heparin Sodium,Porcine 5,000 Unit/Ml Vial) 5,000 unit SUBCUT Q8H LE Last Admin: 03/29/23 17:52 Dose: 5,000 unit Hydromorphone HCl (Hydromorphone Hcl 0.5 Mg/0.5 Ml Syringe) 0.5 mg IVPUSH Q4H PRN; Protocol PRN Reason: Shortness of Breath/Wheezing Last Admin: 03/29/23 20:52 Dose: 0.5 mg Norepinephrine Bitartrate (Levophed) 8 mg in 250 mls @ 0 mls/hr IV .Q0M [facility]; Protocol Last Titration: 03/29/23 21:09 Dose: 0.3 mcg/kg/min, 75.54 mls/hr Lactated Ringer's (Lr) 1,000 mls @ 150 mls/hr IVCONT .Q6H40M [facility] Last Admin: 03/29/23 19:39 Dose: 150 mls/hr Ceftriaxone Sodium 1 gm/ (Sodium Chloride) 50 mls @ 100 mls/hr IV Q24H [facility] Azithromycin 500 mg/ Sodium (Chloride) 250 mls @ 125 mls/hr IV Q24H [facility] Pharmacy Consult (Consult Rx Perform Med Rec) 1 each MISCELLANE ONCE PRN PRN Reason: Consult order Home Medications Medication Instructions Recorded Confirmed Last Taken Type acetaminophen 325 mg capsule 650 mg PO BEDTIME PRN Pain 03/15/23 03/29/23 Unknown History (Tylenol) ascorbic acid (vitamin C) 500 mg 500 mg PO DAILY 03/15/23 03/29/23 Unknown History tablet (Vitamin C) furosemide 80 mg tablet 80 mg PO DAILY 03/15/23 03/29/23 03/15/23 History lisinopril 20 mg tablet 20 mg PO DAILY 03/15/23 03/29/23 03/15/23 History metoprolol succinate 100 mg 100 mg PO DAILY 03/15/23 03/29/23 03/15/23 History tablet,extended release 24 hr tramadol 50 mg tablet 50 mg PO TID PRN Pain 03/15/23 03/29/23 03/15/23 History nicotine (polacrilex) 2 mg gum 2 mg buccal Q2H PRN Nicotine 03/29/23 03/29/23 Unknown History Cravings pregabalin 50 mg capsule (Lyrica) 100 mg PO BID 03/29/23 03/29/23 Unknown History Physical Exam Vital Signs: Vital Signs: Last Vital Signs Temp 98.3 F 03/29/23 19:00 Pulse 78 03/29/23 21:35 Resp 16 03/29/23 21:12 BP 131/79 03/29/23 21:35 Pulse Ox 94 03/29/23 21:12 O2 Del Method Nasal Cannula 03/29/23 21:12 O2 Flow Rate 2 03/29/23 21:12 Oxygen Flow Rate 3 03/29/23 12:16 BMI result Body Mass Index 52.4 Results Labs 03/29/23 21:30 03/29/23 13:16 Labs: Laboratory Results - last 24 hr 03/29/23 03/29/23 03/29/23 13:16 13:16 13:16 MCV 91.8 MCH 28.9 MCHC 31.4 RDW 15.7 Plt Count 265 MPV 10.8 Immature Gran % (Auto) 0.8 H Neut % (Auto) 90.9 H Lymph % (Auto) 3.4 L Wallace % (Auto) 4.7 Eos % (Auto) 0.0 Baso % (Auto) 0.2 Lymph # (Auto) 1.2 Wallace # (Auto) 1.6 H Eos # (Auto) 0.0 Baso # (Auto) 0.1 Abs Immat Gran (auto) 0.28 H Absolute Neuts (auto) 30.7 H Absolute Nucleated RBC 0.000 Nucleated RBC % (auto) 0.0 Smear Tech's Comments VERIFIED VBG pH VBG pCO2 VBG pO2 VBG HCO3 VBG O2 Saturation VBG Base Excess Anion Gap 18 Estim Creat Clear Calc TNP Estimated GFR 8 Random Glucose 137 H Lactic Acid 1.3 Calcium 8.7 D Total Bilirubin 0.6 AST 26 ALT 45 H Alkaline Phosphatase 131 H Total Creatine Kinase 78 B-Natriuretic Peptide Total Protein 6.4 L Albumin 3.1 L COVID-19 (MECHE) COVID-[employer] Com Influenza Type A (MALLORY) Influenza Type B (MALLORY) Influenza A & B Note 03/29/23 03/29/23 03/29/23 13:16 13:16 13:16 MCV MCH MCHC RDW Plt Count MPV Immature Gran % (Auto) Neut % (Auto) Lymph % (Auto) Wallace % (Auto) Eos % (Auto) Baso % (Auto) Lymph # (Auto) Wallace # (Auto) Eos # (Auto) Baso # (Auto) Abs Immat Gran (auto) Absolute Neuts (auto) Absolute Nucleated RBC Nucleated RBC % (auto) Smear Tech's Comments VBG pH VBG pCO2 VBG pO2 VBG HCO3 VBG O2 Saturation VBG Base Excess Anion Gap Estim Creat Clear Calc Estimated GFR Random Glucose Lactic Acid Calcium Total Bilirubin AST ALT Alkaline Phosphatase Total Creatine Kinase B-Natriuretic Peptide 114 H Total Protein Albumin COVID-19 (MECHE) Negative [employer] See Note Influenza Type A (MALLORY) Negative Influenza Type B (MALLORY) Negative Influenza A & B Note See Note 03/29/23 03/29/23 03/29/23 14:34 18:22 18:25 MCV MCH MCHC RDW Plt Count MPV Immature Gran % (Auto) Neut % (Auto) Lymph % (Auto) Wallace % (Auto) Eos % (Auto) Baso % (Auto) Lymph # (Auto) Wallace # (Auto) Eos # (Auto) Baso # (Auto) Abs Immat Gran (auto) Absolute Neuts (auto) Absolute Nucleated RBC Nucleated RBC % (auto) Smear Tech's Comments VBG pH 7.32 7.40 VBG pCO2 67 30 VBG pO2 36 215 VBG HCO3 35 H 19 L VBG O2 Saturation 57.0 99.0 VBG Base Excess 7.0 -4.5 Anion Gap Estim Creat Clear Calc Estimated GFR Random Glucose Lactic Acid 1.8 Calcium Total Bilirubin AST ALT Alkaline Phosphatase Total Creatine Kinase B-Natriuretic Peptide Total Protein Albumin COVID-19 (MECHE) COVID-19 Clin Com Influenza Type A (MALLORY) Influenza Type B (MALLORY) Influenza A & B Note 03/29/23 03/29/23 21:29 21:30 MCV 93.4 MCH 29.8 MCHC 31.9 RDW 15.8 Plt Count 258 MPV 10.9 Immature Gran % (Auto) 0.7 H Neut % (Auto) 85.8 H Lymph % (Auto) 7.5 L Wallace % (Auto) 5.6 Eos % (Auto) 0.2 Baso % (Auto) 0.2 Lymph # (Auto) 2.2 Wallace # (Auto) 1.7 H Eos # (Auto) 0.1 Baso # (Auto) 0.1 Abs Immat Gran (auto) 0.22 H Absolute Neuts (auto) 25.5 H Absolute Nucleated RBC 0.000 Nucleated RBC % (auto) 0.0 Smear Tech's Comments VERIFIED VBG pH 7.28 L VBG pCO2 47 VBG pO2 49 VBG HCO3 22 VBG O2 Saturation 77.0 VBG Base Excess -4.0 Anion Gap Estim Creat Clear Calc Estimated GFR Random Glucose Lactic Acid Calcium Total Bilirubin AST ALT Alkaline Phosphatase Total Creatine Kinase B-Natriuretic Peptide Total Protein Albumin COVID-19 (MECHE) COVID-19 Clin Com Influenza Type A (MALLORY) Influenza Type B (MALLORY) Influenza A & B Note Imaging Radiologist's Impressions: Impressions Chest X-Ray 03/29/23 12:15 IMPRESSION: Mild left basilar linear markings and emphysematous persistent atelectasis/infiltrate correlating with CT findings with possible mild improvement. Continued short-term radiographic follow-up, preferably with PA and lateral views is recommended to assess for resolution. Chronic interstitial changes consistent with known emphysema. Abdomen/Pelvis CT 03/29/23 16:14 IMPRESSION: 1. Consolidation of the left lower lobe. Groundglass opacities in the right lower lobe suggesting infectious/inflammatory etiology. 2. Patient motion/breathing artifact limits evaluation of the mid abdomen. 3. Status post cholecystectomy. 4. Bilateral renal hypodensities redemonstrated though limited evaluation secondary to motion statistically representing cyst measuring up to 1.3 cm. 5. Peripherally calcified splenic artery aneurysm measuring up to 10 mm. Venous Duplex 03/29/23 20:08 IMPRESSION: No DVT demonstrated in the right lower extremity. Assessment and Plan Time Spent With Patient Time: Total time managing care of this patient today ____ minutes.
[2023-03-29] MEDS: Albuterol Sulfate (0.083%) 2.5 MG/3 ML VIAL.NEB INHALE (22:04)
--- NOTE | 2023-03-29 22:04 | W.PM.CCHP ---
Procedures Date of Service Date of Service: 03/29/23 Central Line Placement Right IJ: Consent for Procedure: Elective - informed consent obtained (verbal from patient ) Time out performed: Yes Sterile Technique Used: Yes Patient placed on monitor/pulse ox: Yes MD prep: mask, gown, gloves and other Central line prep: Chlorhexidine scrub and sterile drapes applied Local anesthesia used: lidocaine 1% Amount of anesthesia used (ml): 5 Ultrasound used for placement: Yes Central line lumen inserted: triple Post procedure: sutured in place, good blood return, all ports aspirated, flushed, capped and sterile dressing applied Post procedure x-ray: tip of catheter in good position and no pneumothorax seen Patient tolerated procedure: well and no complications Complications: none
[2023-03-29 22:05] LABS: Venous Blood Gas Refer to POC result
[2023-03-29 22:06] LABS: Magnesium 2.2 mg/dL (1.6-2.6)
[2023-03-29] MEDS: Naloxone HCl 0.4 MG/ML VIAL 0.2 MG IVPUSH ×2 (22:06→22:53)
[2023-03-29] MEDS: Albumin Human 25 % 100 ML IV ×2 (22:08→22:56)
[2023-03-29] MEDS: Sodium Bicarbonate 8.4% 50 MEQ/50 ML VIAL 100 MEQ IVPUSH (22:09)
[2023-03-29 22:11] LABS: Alanine Aminotransferase 50 U/L (0-31); Albumin Level 3.3 g/dL (3.5-5.0); Alkaline Phosphatase 111 U/L (39-117); Anion Gap 18 (12-20); Aspartate Amino Transferase 32 U/L (5-31); Bilirubin Total 0.9 mg/dL (0.0-1.0); Blood Urea Nitrogen 71 mg/dL (9-16); Calcium 7.5 mg/dL (8.4-10.2); Carbon Dioxide 20 mmol/L (22-29); Chloride 99 mmol/L (96-108); Creatinine Clr Calc Pharmacy 13.9; Estimated Glomerular Filt Rate 9; Glucose Random 158 mg/dL (60-115); Potassium 4.7 mmol/L (3.3-5.1); Sodium 132 mmol/L (135-145); Total Protein 5.7 g/dL (6.5-8.0)
[2023-03-29 23:29] LABS: Phosphorus 5.3 mg/dL (2.7-4.5)
[2023-03-29] MEDS: Norepinephrine Bitartrate/D5W 8 MG/250 ML PLAST..BAG 88.13 MG IV (23:55)
[2023-03-30] VITALS (55 sets, daily range): BP systolic 73–154; BP diastolic 33–90; PULSE 84–112; RESP 15–26; TEMP 36.7–37.9; O2SAT 88–97; BMI 46.5
[2023-03-30] MEDS: Albuterol/Iprat 2.5/0.5MG 3 ML AMPUL.NEB INHALE ×3 (00:13→19:11)
[2023-03-30] MEDS: Lactated Ringers 1,000 ML 150 ML IVCONT ×2 (01:29→07:50)
[2023-03-30] MEDS: Heparin Sodium,Porcine 5,000 UNIT/ML VIAL 9400 UNIT IVPUSH (01:36)
[2023-03-30 01:37] LABS: Appearance Urine Cloudy; Color Urine Yellow; Glucose Urine UA Negative (Negative); Leukocyte Esterase Urine Small (1+) (Negative); Nitrite Urine Negative (Negative); UMIC TRIGGER UACC YES; Urine Blood Negative (Negative); Urine Ketones Negative (Negative); Urine Protein Trace mg/dL (Neg-Trace)
[2023-03-30 01:40] LABS: INTERNATIONAL NORM RATIO 1.1 (0.9-1.1); Prothrombin Time 13.2 SEC (11.1-13.3)
[2023-03-30 01:42] LABS: PTT Heparin Drip 27.8 SEC (53-77.9)
[2023-03-30] MEDS: Heparin Sodium,Porcine/1/2NS 25,000 UNIT/250 ML IV.SOLN 16.42 UNIT IVCONT (01:43)
[2023-03-30 01:48] LABS: Bacteria Urine None Seen (None Seen); Hyaline Casts Urine >20 /LPF (0-2); RBC Urine >20 /HPF (0-2); UACC Culture Trigger YES
[2023-03-30 01:55] LABS: Anion Gap 22 (12-20); Blood Urea Nitrogen 69 mg/dL (9-16); Calcium 7.8 mg/dL (8.4-10.2); Carbon Dioxide 20 mmol/L (22-29); Chloride 96 mmol/L (96-108); Creatinine Clr Calc Pharmacy 13.7; Estimated Glomerular Filt Rate 10; Glucose Random 239 mg/dL (60-115); Potassium 4.4 mmol/L (3.3-5.1); Sodium 134 mmol/L (135-145)
[2023-03-30] MEDS: Norepinephrine Bitartrate/D5W 8 MG/250 ML PLAST..BAG 75.54 MG IV (02:30)
[2023-03-30] MEDS: Albumin Human 25 % 100 ML IV (02:33)
[2023-03-30] MEDS: Acetaminophen 325 MG TABLET 975 MG PO (02:38)
[2023-03-30] MEDS: Albuterol Sulfate (0.083%) 2.5 MG/3 ML VIAL.NEB INHALE ×3 (02:42→21:50)
--- NOTE | 2023-03-30 02:44 | PC.NURSE ---
PT TO ICU FROM ER AT 1900. ON ARRIVAL PT WAS A&O X3, FOLLOWING COMMANDS AND ABLE TO SALINAS EQUALLY. SHE WAS MILDLY ANXIOUS AND SHORT OF BREATH WITH O2 ON AT 3L VIA NC. RESPIRATIONS 24-26 WITH USE OF ACCESSORY MUSCLES. LUNGS VERY DIMINISHED AND WITH EXPIRATORY WHEEZING THROUGHOUT. GASTON MCCLURE AT BEDSIDE ON ARRIVAL TO ICU. HISTORY AND PHYSICAL INTAKE DONE. PT ANSWERED ALL QUESTIONS APPROPRIATELY BUT WAS SHORT OF BREATH WITH TALKING. RESP THERAPY GAVE DUONEB TREATMENT WHICH HELPED WORK OF BREATHING. BP WAS LOW 85/47 ON FIRST TAKE IN THE UNIT AND CONTINUED TO DROP LOW 60'S SYSTOLIC. LEVOPHED STARTED AND TITRATED UP TO 0.4 MCG/KG/MIN. CENTRAL LINE PLACED IN THE [facility] SITE PER GASTON MCCLURE. PT WAS GIVEN DILAUDID 0.5 MG IVP PRE PROCEDURE WITH GOOD EFFECT AND WAS ABLE TO LIE FLAT. SHE WAS AROUSABLE DURING PROCEDURE BUT MOSTLY RESTFUL. PT GIOVANNY PROCEDURE WELL. LABS DRAWN AND SPUTUM SPEC SENT FOR CULTURE. LATER, PT'S O2 SATS DROPPED TO MID 80'S. SATS HAD BEEN LOW 90'S AND SHE WAS SOMNOLENT BUT AROUSABLE. NARCAN ORDERED X2 DOSES AND PT WOKE UP AND WAS ABLE TO TAKE DEEP BREATHS. SHE WAS TAKEN TO CT SCAN WHERE A CHEST CT WAS DONE. DID NOT SHOW PULM EMBOLI BUT SHE WILL HAVE A PERFUSION SCAN TOMORROW TO RULE OUT. PT WAS STARTED ON HEPARIN DRIP PER PROTOCOL. ALSO NO URINE OUTPUT NOTED. PT HAD URGE TO GO BUT WAS NOT ABLE ON A BEDPAN. BLADDER SCANNED FOR >500 ML AND THUS, AGUILAR CATH WAS INSERTED. 700 ML OF URINE RETURNED AND SPEC SENT TO LAB. MONITOR SHOWS [id number], OCC PVC, OCC PAC NOTED.
[2023-03-30 04:44] LABS: VBG Base Excess -1.7 mmol/L; VBG HCO3 24 mmol/L (22-26); VBG pCO2 49 mmHg; VBG pO2 51 mmHg
[2023-03-30 04:47] LABS: Venous Blood Gas Refer to POC result
[2023-03-30 04:49] LABS: Basophils Percent Auto 0.1 % (0-2); Hematocrit 32.5 % (37.0-47.0); Hemoglobin 10.2 g/dl (12.0-16.0); Imm Gran Abs Auto 0.27 X10*3/uL (0.00-0.03); Imm Gran Pct Auto 1.1 % (0.0-0.4); Lymphocytes Absolute Auto 0.3 X10*3/uL (1.2-4.9); MANUAL DIFF FLAG SCAN; Mean Corpuscular HGB Conc 31.4 g/dl (31.0-35.0); Mean Corpuscular Hemoglobin 29.1 pg (27.0-33.0); Mean Corpuscular Volume 92.9 fL (80.0-98.0); Mean Platelet Volume 10.8 fL (9.4-12.3); Monocytes Absolute Auto 0.2 X10*3/uL (0.1-1.2); Monocytes Percent Auto 0.8 % (2-11); Neutrophils Absolute Auto 23.3 x10*3/uL (2.0-8.3); Platelet Count 226 X10*3/uL (160-400); Red Cell Distribution Width 15.8 % (11.0-16.0); SCAN SMEAR FLAG 1; White Blood Count 24.1 X10*3/uL (4.8-10.8)
[2023-03-30 04:59] LABS: Lactic Acid 1.1 mmol/L (0.5-2.0)
[2023-03-30 05:07] LABS: Alanine Aminotransferase 77 U/L (0-31); Albumin Level 4.2 g/dL (3.5-5.0); Alkaline Phosphatase 114 U/L (39-117); Anion Gap 19 (12-20); Aspartate Amino Transferase 51 U/L (5-31); Bilirubin Total 0.9 mg/dL (0.0-1.0); Blood Urea Nitrogen 66 mg/dL (9-16); Calcium 7.7 mg/dL (8.4-10.2); Carbon Dioxide 21 mmol/L (22-29); Chloride 98 mmol/L (96-108); Creatinine Clr Calc Pharmacy 14.8; Estimated Glomerular Filt Rate 11; Glucose Random 227 mg/dL (60-115); Magnesium 2.1 mg/dL (1.6-2.6); Phosphorus 4.4 mg/dL (2.7-4.5); Potassium 4.4 mmol/L (3.3-5.1); Sodium 134 mmol/L (135-145); Total Protein 6.2 g/dL (6.5-8.0)
[2023-03-30] MEDS: methylPREDNISolone Sod Succ 125 MG/2 ML VIAL 60 MG IVPUSH (05:38)
[2023-03-30] MEDS: Azithromycin 500 MG in 0.9 % Sodium Chloride 250 ML 125 MG IV (05:40)
[2023-03-30] MEDS: Norepinephrine Bitartrate/D5W 8 MG/250 ML PLAST..BAG 35.25 MG IV (06:44)
--- NOTE | 2023-03-30 07:00 | CA_ITS ---
Transthoracic Echocardiogram Patient (Last, First, Middle): Nicole Goldstein A Gender: Female Date of : 1950 Age: 72 Procedure Date: 03/30/2023 Procedure Type: Transthoracic Echocardiogram Location: ICU Height: 160.02 cm Weight: 118.84 kg BSA: 2.17 m2 Heart Rate: bpm BP: 142 / 104 mmHg Trim Stencil Maker: BETH Ruff MD: John Marquez MD Bindery Supervisor: Tyson Godoy MD Symptoms: dyspnea Study Quality: Technically Difficult/Despite Contrast ECG Rhythm: Tachycardia Conclusions: - 1. Technically limited study despite use of contrast agent 2. On multiple views LV systolic function appears to be hyperdynamic with LVEF of greater than 70% with grade 1 diastolic dysfunction 3. Limited visualization cardiac valves with cardiac valvular Dopplers within normal limits 4. Mildly dilated ascending aorta at 4 cm Findings Procedure Information Contrast agent, definity, is being given per protocol without apparent complications. Left Ventricle The left ventricular systolic function is hyperdynamic. The visually estimated ejection fraction is >70%. Regional wall motion abnormalities can not be excluded due to suboptimal endocardial definition. Spectral Doppler is indicative of an impaired relaxation filling pattern. E/E prime ratio is <8, consistent with normal filling pressures. Evidence suggests grade I (mild) diastolic dysfunction. Right Ventricle The right ventricle was not well visualized. There is normal right ventricular systolic function. Atria The left atrium was not well visualized. Interatrial shunt cannot be excluded. The right atrium was not well visualized. Aortic Valve The aortic valve was not well visualized. There is no aortic valve stenosis. There is no aortic valve regurgitation. Mitral Valve The mitral valve was not well visualized. There is no mitral valve regurgitation. There is no mitral valve stenosis. Pulmonic Valve The pulmonic valve was not well visualized. Tricuspid Valve The tricuspid valve was not well visualized. Tricuspid regurgitation envelope is inadequate for calculation of right ventricular systolic pressure. Great Vessels There is mild dilatation of the ascending aorta measuring 4.00 cm. Venous The inferior vena cava was not well visualized. The hepatic vein was not well visualized. Pericardium/Pleural The pericardium was not well visualized. Measurements 2D Linear Measurements IVSd: 1.23 0.6-0.9/0.6-1.0 cm LVIDd: 5.02 3.9-5.3/4.2-5.9 cm LVIDd Index: 2.31 2.4-3.2/2.2-3.1 cm/m2 LVIDs: 2.49 2.0-3.6 cm LVPWd: 0.95 0.7-1.1 cm LA Diam: 4.00 2.7-3.8/3.0-4.0 cm LAIDs Index: 1.84 1.5-2.3 cm/m2 LV Mass: 256.29 67-162/88-224 g LV Mass Index: 118.11 43-95/49-115 g/m2 LVOT Diam: 2.10 3.0+(-)1.3 cm 2D Systolic Function EF 4C: 83.70 >55% EF 2C: 75.50 >55% EF BiP: 80.00 >55% Mitral Valve MV Pk E: 0.91 MV PK A: 1.29 MV Decel Time: 228.00 E/A: 0.70 E'Lateral: 9.57 E'Medial: 10.60 E/E' Med: 8.60 E/E' Lat: 9.50 PHT: 67.00 MVA PHT: 3.28 Decel [place]: 3.98 Aortic Valve AoV Pk Tae: 2.12 AoV Mn Tae: 1.32 AoV VTI: 0.37 AoV Pk Grad: 18.00 Aov Mn Grad: 9.00 [place] Cont.VTI: 2.52 LVOT LVOT Pk Tae: 1.63 LVOT Mn Tae: 1.10 LVOT VTI: 0.27 LVOT Pk Grad: 11.00 LVOT Mn Grad: 6.00 LVOT Diam: 2.10 LVOT Area: 3.46 Diastolic Function MV Pk E: 0.91 MV Pk A: 1.29 E/A: 0.70 E'Medial: 10.60 E/E' Med: 8.60 E' Laterial: 9.57 E/E' Lat: 9.50 Right Ventricle TAPSE (mm): 29.50 TVS' Tae: 15.10 Tricuspid Valve TR Pk Tae: 1.93 TR Pk Grad: 15.00 Great Vessels Aorta Sinus of Valsalva: 3.80 2.0-3.5 cm Ao Asc: 4.00 2.1-3.4 cm Pulmonary Valve PV Pk Tae: 1.84 PV Min Tae: 0.99 Peak PV Grad: 14.00 PV Mn Grad: 5.00 Updated in Other Vendor System with Status of Final Tyson Godoy MD electronically signed on 03/30/2023 3:08:48 PM with status of Final
--- NOTE | 2023-03-30 07:14 | PC.NURSE ---
CORRECTION TO MAR: LEVOPHED WAS TITRATED FROM 0.07 TO 0.1MCG/KG/MIN PER PROVIDER AT 2058 ON 03/29/23 BUT WAS DOCUMENTED IN THE MAR 0.07 TO 1 MCG/KG/MIN. WAS NOT ABLE TO COREECT IN THE MAR. .
[2023-03-30] MEDS: cefTRIAXone sodium 1 GM in 0.9 % Sodium Chloride 50 ML IV (07:50)
[2023-03-30] MEDS: Pregabalin 100 MG CAPSULE PO ×2 (07:58→20:12)
[2023-03-30 08:19] LABS: PTT Heparin Drip 174.6 SEC (53-77.9)
[2023-03-30] MEDS: Lactulose 20 GM/30 ML SOLUTION 30 GM PO (08:24)
[2023-03-30] MEDS: levoFLOXacin/D5W 750 MG/150 ML PIGGYBACK 100 MG IV (08:24)
--- NOTE | 2023-03-30 09:11 | P.CONNP_ITS ---
History of Present Illness Reason for Consult Consult date: 03/30/23 Chief Complaint Chief complaint: dyspnea, hypotension History of Present Illness Narrative: 72-year-old female with baseline serum creatinine 1.2 mg/dl admitted to ICU w ith septic shock now with worsening kidney function. In summary she presented with shortness but denies fever or chills. She reports poor oral intake but denies vomiting or diarrhea. Review of her vital signs showed hypotensive episodes with systolic blood pressure down to the 60s. She was given IV fluids and started on vancomycin and Zosyn and eventually required Levophed. CT scan of the abdomen was negative for hydronephrosis. ? Review of Systems Review of Systems 10 points ROS except for pertinent in HPI [facility] Past Medical History Medical History Carpal tunnel syndrome, left High blood pressure Lung cancer Nerve pain Pneumonia Surgical History Surgical History H/O: hysterectomy Social History Social History Household Members: Spouse Housing: [facility] Do you presently have visiting nurse or other home services: Yes ([facility]) Alcohol intake: never Patient Tobacco Use Status: Former Tobacco user Tobacco use type: Cigarette Cigarette Packs Per Day: 1 Cigarettes Per Day: 20.0 Smoked in Last 30 Days: Yes e-Cigarette/Vaping Use: Never Used Patient Interested in Nicotine Replacement: No Patient Given Instructions on How to Stop Smoking: Yes Date Education Initiated: 03/29/23 Second Hand Smoke Exposure: No Use of substances other than those prescribed or required for medical reasons: No Currently Displaying Signs/Symptoms of Drug Intoxication Withdrawal: No Any prior treatment program specific to substance use: No Have you been hit, kicked, punched, or otherwise hurt by someone within the past year? If so, by whom?: No Do you feel safe in your current relationship?: Yes Is there a partner from a previous relationship who is making you feel unsafe now?: No Are you made to feel afraid or neglected: No Advance Directives: Yes Advance Directives Information Provided: No Advance Directives on File: No Advance Directives Date on File: 03/23/23 Do you have thoughts of harming others: None Do you have a plan to hurt others: No Plan Recently lost weight without trying: Yes How much weight loss: 2-13 pounds Eating poorly because of decreased appetite: Yes Nutrition screen score: 4 Nutrition Risks: On aspiration precautions and Poor intake 0-25% >4 days Patient : No : No Poor oral hygiene: No service: No Current occupational status: retired Current occupation: left handed Meds Allergies Allergy/AdvReac Type Severity Reaction Status Date / Time Penicillin Allergy Unknown rash Uncoded 03/15/23 16:50 Active Medications: Current Medications Albuterol Sulfate (Albuterol Sulfate (0.083%) 2.5 Mg/3 Ml Vial.Neb) 2.5 mg INHALE Q2H PRN PRN Reason: Wheezing Last Admin: 03/30/23 08:24 Dose: 2.5 mg Albuterol/Ipratropium (Albuterol/Iprat 2.5/0.5mg 3 Ml Ampul.Neb) 3 ml INHALE RQ6H LE Last Admin: 03/30/23 05:38 Dose: Not Given Heparin Sodium (Porcine) (Heparin Sodium,Porcine 5,000 Unit/Ml Vial) 4,700 unit 40 unit/kg (4700 unit) IVPUSH PROTOCOL BOLUS PRN; Protocol PRN Reason: 40 unit/kg - Heparin Protocol Heparin Sodium (Porcine) (Heparin Sodium,Porcine 5,000 Unit/Ml Vial) 9,400 unit 80 unit/kg (9400 unit) IVPUSH PROTOCOL BOLUS PRN; Protocol PRN Reason: 80 unit/kg - Heparin Protocol Norepinephrine Bitartrate (Levophed) 8 mg in 250 mls @ 0 mls/hr IV .Q0M LE; Protocol Last Admin: 03/30/23 06:44 Dose: 0.14 mcg/kg/min, 35.25 mls/hr Lactated Ringer's (Lr) 1,000 mls @ 150 mls/hr IVCONT .Q6H40M LE Last Admin: 03/30/23 07:50 Dose: 150 mls/hr Heparin Sodium/Sodium Chloride (Heparin Sodium,Porcine/1/2ns) 25,000 unit in 250 mls @ 0 mls/hr IVCONT .Q0M LE; Protocol Last Titration: 03/30/23 08:18 Dose: 0 units/kg/hr, 0 mls/hr Levofloxacin (Levaquin) 750 mg in 150 mls @ 100 mls/hr IV ONCE ONE Stop: 03/30/23 09:59 Last Admin: 03/30/23 08:24 Dose: 100 mls/hr Lactulose (Lactulose 20 Gm/30 Ml Solution) 30 gm PO BID [facility] Last Admin: 03/30/23 08:24 Dose: 30 gm Pharmacy Consult (Consult Rx Perform Med Rec) 1 each MISCELLANE ONCE PRN PRN Reason: Consult order Pregabalin (Pregabalin 100 Mg Capsule) 100 mg PO BID [facility] Last Admin: 03/30/23 07:58 Dose: 100 mg Home Medications Medication Instructions Recorded Confirmed Last Taken Type acetaminophen 325 mg capsule 650 mg PO BEDTIME PRN Pain 03/15/23 03/29/23 Unknown History (Tylenol) ascorbic acid (vitamin C) 500 mg 500 mg PO DAILY 03/15/23 03/29/23 Unknown History tablet (Vitamin C) furosemide 80 mg tablet 80 mg PO DAILY 03/15/23 03/29/23 03/15/23 History lisinopril 20 mg tablet 20 mg PO DAILY 03/15/23 03/29/23 03/15/23 History metoprolol succinate 100 mg 100 mg PO DAILY 03/15/23 03/29/23 03/15/23 History tablet,extended release 24 hr tramadol 50 mg tablet 50 mg PO TID PRN Pain 03/15/23 03/29/23 03/15/23 History nicotine (polacrilex) 2 mg gum 2 mg buccal Q2H PRN Nicotine 03/29/23 03/29/23 Unknown History Cravings pregabalin 50 mg capsule (Lyrica) 100 mg PO BID 03/29/23 03/29/23 Unknown History Physical Exam Vital Signs: Last Vital Signs Temp 99.8 F 03/30/23 04:00 Pulse 85 03/30/23 08:24 Resp 16 03/30/23 08:24 BP 91/52 L 03/30/23 08:00 Pulse Ox 93 03/30/23 08:00 O2 Del Method Nasal Cannula 03/30/23 08:00 O2 Flow Rate 4 03/30/23 08:00 Oxygen Flow Rate 3 03/29/23 12:16 BMI result Body Mass Index 46.5 Const General: alert and awake HEENT Head: Yes normocephalic and Yes atraumatic Neck Neck: Yes supple Resp Auscultation: diminished lung sounds Cardio Heart sounds: S1 normal heart sound present and S2 normal heart sound present GI Palpation (GI): Soft to palpation and nontender Extrem General: Yes pedal edema Results Lab Results 03/30/23 04:38 03/30/23 04:38 Lab results: Chemistry 03/29/23 03/29/23 03/30/23 13:16 21:30 01:27 Sodium 128 L 132 L 134 L Potassium 5.0 4.7 4.4 Carbon Dioxide 27 20 L 20 L BUN 80 H 71 H 69 H Creatinine 5.51 H* 4.74 H* 4.44 H* Calcium 8.7 D 7.5 L D 7.8 L Phosphorus 5.3 H 03/30/23 04:38 Sodium 134 L Potassium 4.4 Carbon Dioxide 21 L BUN 66 H Creatinine 4.11 H* Calcium 7.7 L Phosphorus 4.4 Hematology 03/29/23 03/29/23 03/30/23 13:16 21:30 04:38 WBC 33.9 H* 29.8 H 24.1 H Hgb 12.7 11.3 L 10.2 L Plt Count 265 258 226 Urinalysis 03/29/23 03/30/23 01:00 01:00 Urine Color Yellow Cancelled Urine Appearance Cloudy Cancelled Urine pH 5.0 Cancelled Ur Specific [place] 1.010 Cancelled Urine Protein Trace Cancelled Urine Glucose (UA) Negative Cancelled Urine Ketones Negative Cancelled Urine Blood Negative Cancelled Urine Nitrite Negative Cancelled Ur Leukocyte Esterase Small (1+) H Cancelled Urine RBC >20 H Urine WBC 6-10 H Ur Squamous Epith Cells 3-5 Hyaline Casts >20 Assessment and Plan (1) Acute kidney injury: Status: Acute (2) Pneumonia: Status: Acute (3) Metabolic acidosis: Status: Acute Plan DANA due to acute tubular injury in the setting of sepsis and [place] hypotensive earlier urine suggests microscopic hematuria would consider pulmo renal syndrome if kidney function not improving no obstruction by CT scan of the abdomen baseline Scr ~ 1.2 mg/dl REC IVF keep MAP > 65 mmhg no indication for PHYSICAL THERAPIST monitor urine output follow kidney function and electrolytes Time Spent With Patient Time: Total time managing care of this patient today ____ minutes. Procedures Date of Service Date of Service: 03/30/23
[2023-03-30 09:45] LABS: PTT Heparin Drip 82.4 SEC (53-77.9)
[2023-03-30 12:26] LABS: Anion Gap 19 (12-20)
[2023-03-30] MEDS: Norepinephrine Bitartrate/D5W 8 MG/250 ML PLAST..BAG 45.33 MG IV (12:38)
[2023-03-30 13:06] LABS: Alanine Aminotransferase 68 U/L (0-31); Albumin Level 3.9 g/dL (3.5-5.0); Alkaline Phosphatase 114 U/L (39-117); Aspartate Amino Transferase 38 U/L (5-31); Bilirubin Total 0.5 mg/dL (0.0-1.0); Blood Urea Nitrogen 64 mg/dL (9-16); Calcium 8.1 mg/dL (8.4-10.2); Carbon Dioxide 22 mmol/L (22-29); Chloride 101 mmol/L (96-108); Creatinine Clr Calc Pharmacy 17.9; Estimated Glomerular Filt Rate 13; Glucose Random 195 mg/dL (60-115); Potassium 4.2 mmol/L (3.3-5.1); Sodium 138 mmol/L (135-145)
--- NOTE | 2023-03-30 13:23 | MHC.CM.PN ---
Pt in ICU on pressor support and unable to participate in CM assessment d/t medical condition: Information obtained from EMR and phone conversation w/pt's spouse, Aleks. Per Aleks, pt resides at home and is active with [facility] for skilled RN visits. She has [employer] for home O2. Aleks assists w/some ADLS and transportation needs. Aleks states pt was in the ED on 03/22 and completed a HCP: nothing scanned into EMR at this review. D/C plan is for a return to home w/existing services however, pt may be deconditioned and in need of more nursing care. Discussed briefly w/Aleks who states he will 'take one day at a time' for determination of pt needs. CM to follow
--- NOTE | 2023-03-30 16:11 | P.PNCC_ITS ---
Subjective Subjective Date of Service: 03/30/23 Interval History: 72-year-old lady with underlying COPD, hypertension, obesity, left upper lobe lung cancer status post XRT, admitted on 03/29/2023 with lethargy, anuria, and dyspnea. On ER evaluation patient initially hypertensive, then with development of hypotension refractory to IV fluid support requiring initiation of pressor support on admission to the intensive care. Also with acute renal failure and urinary retention, improving after placement of fully and IV fluid resuscitation. Treated with empiric antibiotics. CT abdomen pelvis with constipation. CT chest with known at least with for the last 14 days left lower lobe infiltrate. No events overnight. Pressor requirements are improving. Critical Care Time (minutes): 45 Physical Exam Vital Signs: Vital Signs: Last Vital Signs Temp 98.5 F 03/30/23 12:00 Pulse 102 H 03/30/23 16:00 Resp 24 H 03/30/23 16:00 BP 120/64 03/30/23 16:00 Pulse Ox 91 L 03/30/23 16:00 O2 Del Method Nasal Cannula 03/30/23 16:00 O2 Flow Rate 4 03/30/23 16:00 Oxygen Flow Rate 3 03/29/23 12:16 BMI result Body Mass Index 46.5 Const: General: no acute distress, alert and awake Nutritional Appearance: obese Eyes: Sclerae: sclerae normal EOM: EOMs intact bilaterally Neck: Neck: Yes no lymphadenopathy, Yes trachea midline and Yes supple Resp: Effort & Inspection: normal respiratory effort and no respiratory dist ress Auscultation: clear to auscultation bilaterally Cardio: Rate: regular rate Rhythm: regular rhythm Heart sounds: no gallops, no murmurs and no rubs GI: Palpation (GI): Soft to palpation and Other GI palpation findings present ( Nontender) Auscultation: normal bowel sounds Extrem: General: Yes no pedal edema, No clubbing and No cyanosis Objective Data Labs 03/30/23 04:38 03/30/23 11:57 Labs: Laboratory Results - last 24 hr 03/29/23 03/29/23 03/29/23 01:00 13:16 18:22 WBC RBC Hgb Hct MCV MCH MCHC RDW Plt Count MPV Immature Gran % (Auto) Neut % (Auto) Lymph % (Auto) [place] % (Auto) Eos % (Auto) Baso % (Auto) Lymph # (Auto) [place] # (Auto) Eos # (Auto) Baso # (Auto) Abs Immat Gran (auto) Absolute Neuts (auto) Absolute Nucleated RBC Nucleated RBC % (auto) Smear Tech's Comments PT INR aPTT Heparin Protocol VBG pH VBG pCO2 VBG pO2 VBG HCO3 VBG O2 Saturation VBG Base Excess Sodium Potassium Chloride Carbon Dioxide Anion Gap BUN Creatinine Estim Creat Clear Calc Estimated GFR Random Glucose Lactic Acid 1.8 Calcium Phosphorus Magnesium Total Bilirubin AST ALT Alkaline Phosphatase Total Creatine Kinase 78 Total Protein Albumin Urine Color Yellow Urine Appearance Cloudy Urine pH 5.0 Ur Specific [place] 1.010 Urine Protein Trace Urine Glucose (UA) Negative Urine Ketones Negative Urine Blood Negative Urine Nitrite Negative Ur Leukocyte Esterase Small (1+) H Urine RBC >20 H Urine WBC 6-10 H Ur Squamous Epith Cells 3-5 Urine Bacteria None Seen Hyaline Casts >20 Urine Yeast Present 03/29/23 03/29/23 03/29/23 18:25 21:29 21:30 WBC 29.8 H RBC 3.79 L Hgb 11.3 L Hct 35.4 L MCV 93.4 MCH 29.8 MCHC 31.9 RDW 15.8 Plt Count 258 MPV 10.9 Immature Gran % (Auto) 0.7 H Neut % (Auto) 85.8 H Lymph % (Auto) 7.5 L [place] % (Auto) 5.6 Eos % (Auto) 0.2 Baso % (Auto) 0.2 Lymph # (Auto) 2.2 [place] # (Auto) 1.7 H Eos # (Auto) 0.1 Baso # (Auto) 0.1 Abs Immat Gran (auto) 0.22 H Absolute Neuts (auto) 25.5 H Absolute Nucleated RBC 0.000 Nucleated RBC % (auto) 0.0 Smear Tech's Comments VERIFIED PT INR aPTT Heparin Protocol VBG pH 7.40 7.28 L VBG pCO2 30 47 VBG pO2 215 49 VBG HCO3 19 L 22 VBG O2 Saturation 99.0 77.0 VBG Base Excess -4.5 -4.0 Sodium Potassium Chloride Carbon Dioxide Anion Gap BUN Creatinine Estim Creat Clear Calc Estimated GFR Random Glucose Lactic Acid Calcium Phosphorus Magnesium Total Bilirubin AST ALT Alkaline Phosphatase Total Creatine Kinase Total Protein Albumin Urine Color Urine Appearance Urine pH Ur Specific [place] Urine Protein Urine Glucose (UA) Urine Ketones Urine Blood Urine Nitrite Ur Leukocyte Esterase Urine RBC Urine WBC Ur Squamous Epith Cells Urine Bacteria Hyaline Casts Urine Yeast 03/29/23 03/29/23 03/30/23 21:30 21:37 01:00 WBC RBC Hgb Hct MCV MCH MCHC RDW Plt Count MPV Immature Gran % (Auto) Neut % (Auto) Lymph % (Auto) [place] % (Auto) Eos % (Auto) Baso % (Auto) Lymph # (Auto) [place] # (Auto) Eos # (Auto) Baso # (Auto) Abs Immat Gran (auto) Absolute Neuts (auto) Absolute Nucleated RBC Nucleated RBC % (auto) Smear Tech's Comments PT INR aPTT Heparin Protocol VBG pH VBG pCO2 VBG pO2 VBG HCO3 VBG O2 Saturation VBG Base Excess Sodium 132 L Potassium 4.7 Chloride 99 Carbon Dioxide 20 L Anion Gap 18 BUN 71 H Creatinine 4.74 H* Estim Creat Clear Calc 13.9 Estimated GFR 9 Random Glucose 158 H Lactic Acid Calcium 7.5 L D Phosphorus 5.3 H Magnesium 2.2 Total Bilirubin 0.9 AST 32 H ALT 50 H Alkaline Phosphatase 111 Total Creatine Kinase Total Protein 5.7 L Albumin 3.3 L Urine Color Cancelled Urine Appearance Cancelled Urine pH Cancelled Ur Specific [place] Cancelled Urine Protein Cancelled Urine Glucose (UA) Cancelled Urine Ketones Cancelled Urine Blood Cancelled Urine Nitrite Cancelled Ur Leukocyte Esterase Cancelled Urine RBC Urine WBC Ur Squamous Epith Cells Urine Bacteria Hyaline Casts Urine Yeast 03/30/23 03/30/23 03/30/23 01:27 01:27 01:27 WBC RBC Hgb Hct MCV MCH MCHC RDW Plt Count MPV Immature Gran % (Auto) Neut % (Auto) Lymph % (Auto) [place] % (Auto) Eos % (Auto) Baso % (Auto) Lymph # (Auto) [place] # (Auto) Eos # (Auto) Baso # (Auto) Abs Immat Gran (auto) Absolute Neuts (auto) Absolute Nucleated RBC Nucleated RBC % (auto) Smear Tech's Comments PT 13.2 INR 1.1 aPTT Heparin Protocol Cancelled 27.8 L VBG pH VBG pCO2 VBG pO2 VBG HCO3 VBG O2 Saturation VBG Base Excess Sodium 134 L Potassium 4.4 Chloride 96 Carbon Dioxide 20 L Anion Gap 22 H BUN 69 H Creatinine 4.44 H* Estim Creat Clear Calc 13.7 Estimated GFR 10 Random Glucose 239 H Lactic Acid Calcium 7.8 L Phosphorus Magnesium Total Bilirubin AST ALT Alkaline Phosphatase Total Creatine Kinase Total Protein Albumin Urine Color Urine Appearance Urine pH Ur Specific [place] Urine Protein Urine Glucose (UA) Urine Ketones Urine Blood Urine Nitrite Ur Leukocyte Esterase Urine RBC Urine WBC Ur Squamous Epith Cells Urine Bacteria Hyaline Casts Urine Yeast 03/30/23 03/30/23 03/30/23 04:34 04:38 04:38 WBC 24.1 H RBC 3.50 L Hgb 10.2 L Hct 32.5 L MCV 92.9 MCH 29.1 MCHC 31.4 RDW 15.8 Plt Count 226 MPV 10.8 Immature Gran % (Auto) 1.1 H Neut % (Auto) 97.0 H Lymph % (Auto) 1.0 L [place] % (Auto) 0.8 L Eos % (Auto) 0.0 Baso % (Auto) 0.1 Lymph # (Auto) 0.3 L [place] # (Auto) 0.2 Eos # (Auto) 0.0 Baso # (Auto) 0.0 Abs Immat Gran (auto) 0.27 H Absolute Neuts (auto) 23.3 H Absolute Nucleated RBC 0.000 Nucleated RBC % (auto) 0.0 Smear Tech's Comments PT INR aPTT Heparin Protocol VBG pH 7.30 L VBG pCO2 49 VBG pO2 51 VBG HCO3 24 VBG O2 Saturation 82.0 VBG Base Excess -1.7 Sodium 134 L Potassium 4.4 Chloride 98 Carbon Dioxide 21 L Anion Gap 19 BUN 66 H Creatinine 4.11 H* Estim Creat Clear Calc 14.8 Estimated GFR 11 Random Glucose 227 H Lactic Acid Calcium 7.7 L Phosphorus 4.4 Magnesium 2.1 Total Bilirubin 0.9 AST 51 H ALT 77 H Alkaline Phosphatase 114 Total Creatine Kinase Total Protein 6.2 L Albumin 4.2 Urine Color Urine Appearance Urine pH Ur Specific [place] Urine Protein Urine Glucose (UA) Urine Ketones Urine Blood Urine Nitrite Ur Leukocyte Esterase Urine RBC Urine WBC Ur Squamous Epith Cells Urine Bacteria Hyaline Casts Urine Yeast 03/30/23 03/30/23 03/30/23 04:38 07:32 09:28 WBC RBC Hgb Hct MCV MCH MCHC RDW Plt Count MPV Immature Gran % (Auto) Neut % (Auto) Lymph % (Auto) [place] % (Auto) Eos % (Auto) Baso % (Auto) Lymph # (Auto) [place] # (Auto) Eos # (Auto) Baso # (Auto) Abs Immat Gran (auto) Absolute Neuts (auto) Absolute Nucleated RBC Nucleated RBC % (auto) Smear Tech's Comments PT INR aPTT Heparin Protocol 174.6 H* D 82.4 H D VBG pH VBG pCO2 VBG pO2 VBG HCO3 VBG O2 Saturation VBG Base Excess Sodium Potassium Chloride Carbon Dioxide Anion Gap BUN Creatinine Estim Creat Clear Calc Estimated GFR Random Glucose Lactic Acid 1.1 Calcium Phosphorus Magnesium Total Bilirubin AST ALT Alkaline Phosphatase Total Creatine Kinase Total Protein Albumin Urine Color Urine Appearance Urine pH Ur Specific [place] Urine Protein Urine Glucose (UA) Urine Ketones Urine Blood Urine Nitrite Ur Leukocyte Esterase Urine RBC Urine WBC Ur Squamous Epith Cells Urine Bacteria Hyaline Casts Urine Yeast 03/30/23 11:57 WBC RBC Hgb Hct MCV MCH MCHC RDW Plt Count MPV Immature Gran % (Auto) Neut % (Auto) Lymph % (Auto) [place] % (Auto) Eos % (Auto) Baso % (Auto) Lymph # (Auto) [place] # (Auto) Eos # (Auto) Baso # (Auto) Abs Immat Gran (auto) Absolute Neuts (auto) Absolute Nucleated RBC Nucleated RBC % (auto) Smear Tech's Comments PT INR aPTT Heparin Protocol VBG pH VBG pCO2 VBG pO2 VBG HCO3 VBG O2 Saturation VBG Base Excess Sodium 138 Potassium 4.2 Chloride 101 Carbon Dioxide 22 Anion Gap 19 BUN 64 H Creatinine 3.43 H Estim Creat Clear Calc 17.9 Estimated GFR 13 Random Glucose 195 H Lactic Acid Calcium 8.1 L Phosphorus Magnesium Total Bilirubin 0.5 AST 38 H ALT 68 H Alkaline Phosphatase 114 Total Creatine Kinase Total Protein 6.0 L Albumin 3.9 Urine Color Urine Appearance Urine pH Ur Specific [place] Urine Protein Urine Glucose (UA) Urine Ketones Urine Blood Urine Nitrite Ur Leukocyte Esterase Urine RBC Urine WBC Ur Squamous Epith Cells Urine Bacteria Hyaline Casts Urine Yeast Microbiology Microbiology Results: Microbiology 03/29/23 13:26 Blood - Venous Blood Culture - Preliminary No growth after 24 hours. 03/29/23 13:16 Blood - Venous Blood Culture - Preliminary No growth after 24 hours. 03/29/23 20:48 Sputum - Expectorated Gram Stain - Final 03/29/23 20:48 Sputum - Expectorated Sputum Culture - Preliminary Culture in progress. Progress Note: A&P Assessment and plan (1) Pulmonary aspiration: Status: Acute (2) Intravascular volume depletion: Status: Acute (3) Constipation: Status: Acute (4) Acute kidney injury: Status: Acute (5) Morbid obesity: Status: Acute Plan Assessment: 72-year-old lady admitted with acute kidney injury, hypotension, and pulmonary aspiration Plan: Neuro: No acute issues. Cardiac: Continue to titrate of pressor support as tolerated. Distributive shock likely secondary to an aspirating event. Pulmonary: Acute on chronic hypoxic respiratory failure likely secondary to aspiration on the background of uremia and acute renal failure. Improving. Renal: Acute renal failure and intravascular volume depletion on the background of constipation and urinary retention. Non oliguric. Improving with IV fluid support and after placement of Ken catheter. Continue to monitor renal indices and urine output. Perfusion scan with no support for pulmonary emboli. Heparin drip discontinue to. Endo: No acute issues. GI: Constipation resolved with lactulose. ID: Empirically covered for pulmonary aspiration. Heme/Onc: No acute issues. Psych: No acute issues. Miscellaneous: No acute issues. Prophylaxis: Heparin Diet: Regular Critical care time spent: 45 minutes Quality Stroke Does the patient have a stroke diagnosis?: No VTE Prior VTE?: No VTE Risk Level:: Medical - moderate - high VTE Device Contraindication: Treatment Not Indicated VTE Drug Contraindication: N/A - Med Ordered
[2023-03-31] VITALS (33 sets, daily range): BP systolic 90–119; BP diastolic 41–68; PULSE 90–120; RESP 15–24; TEMP 36.3–36.8; O2SAT 88–95; BMI 45.8
--- NOTE | 2023-03-31 | ECG_ITS ---
Test Reason : RHYTHM CHANGE Blood Pressure : / mmHG Vent. Rate : 104 BPM Atrial Rate : 000 BPM P-R Int : 000 ms QRS Dur : 058 ms QT Int : 308 ms P-R-T Axes : 000 -12 -15 degrees QTc Int : 405 ms Atrial fibrillation with rapid ventricular response Low voltage QRS Inferior infarct (cited on or before 15-MAR-2023) Cannot rule out Anterior infarct (cited on or before 15-MAR-2023) Abnormal ECG When compared with ECG of 29-MAR-2023 12:30, Atrial fibrillation has replaced Sinus rhythm Referred By: Mina Hurley Electronically Signed By:DUNG GRAHAM
[2023-03-31] MEDS: Albuterol/Iprat 2.5/0.5MG 3 ML AMPUL.NEB INHALE ×4 (00:12→23:37)
[2023-03-31] MEDS: Heparin Sodium,Porcine 5,000 UNIT/ML VIAL 5000 UNIT SUBCUT ×4 (00:19→23:27)
[2023-03-31] MEDS: Norepinephrine Bitartrate/D5W 8 MG/250 ML PLAST..BAG 22.66 MG IV (02:44)
[2023-03-31 05:08] LABS: Basophils Percent Auto 0.1 % (0-2); Hematocrit 31.2 % (37.0-47.0); Hemoglobin 9.9 g/dl (12.0-16.0); Imm Gran Abs Auto 0.17 X10*3/uL (0.00-0.03); Imm Gran Pct Auto 0.9 % (0.0-0.4); Lymphocytes Absolute Auto 0.8 X10*3/uL (1.2-4.9); Lymphocytes Percent Auto 4.2 % (20-40); MANUAL DIFF FLAG SCAN; Mean Corpuscular HGB Conc 31.7 g/dl (31.0-35.0); Mean Corpuscular Hemoglobin 29.6 pg (27.0-33.0); Mean Corpuscular Volume 93.4 fL (80.0-98.0); Mean Platelet Volume 10.6 fL (9.4-12.3); Monocytes Absolute Auto 1.6 X10*3/uL (0.1-1.2); Monocytes Percent Auto 8.2 % (2-11); Neutrophils Absolute Auto 16.5 x10*3/uL (2.0-8.3); Neutrophils Percent Auto 86.6 % (45-73); Platelet Count 207 X10*3/uL (160-400); Red Blood Count 3.34 X10*6/uL (4.20-5.50); SCAN SMEAR FLAG 1; White Blood Count 19.1 X10*3/uL (4.8-10.8)
[2023-03-31 05:15] LABS: VBG Base Excess 2.9 mmol/L; VBG HCO3 28 mmol/L (22-26); VBG pCO2 49 mmHg; VBG pH 7.37 (7.32-7.43); VBG pO2 67 mmHg
[2023-03-31 05:17] LABS: Venous Blood Gas Refer to POC result
[2023-03-31 05:28] LABS: SLIDE REVIEW VERIFIED
[2023-03-31 05:41] LABS: Alanine Aminotransferase 57 U/L (0-31); Albumin Level 3.7 g/dL (3.5-5.0); Alkaline Phosphatase 114 U/L (39-117); Anion Gap 21 (12-20); Aspartate Amino Transferase 27 U/L (5-31); Bilirubin Total 0.3 mg/dL (0.0-1.0); Blood Urea Nitrogen 60 mg/dL (9-16); Calcium 8.8 mg/dL (8.4-10.2); Carbon Dioxide 22 mmol/L (22-29); Chloride 104 mmol/L (96-108); Creatinine Clr Calc Pharmacy 24.8; Estimated Glomerular Filt Rate 19; Glucose Random 160 mg/dL (60-115); Magnesium 2.1 mg/dL (1.6-2.6); Phosphorus 3.2 mg/dL (2.7-4.5); Potassium 3.9 mmol/L (3.3-5.1); Sodium 143 mmol/L (135-145); Total Protein 5.9 g/dL (6.5-8.0)
[2023-03-31] MEDS: Pregabalin 100 MG CAPSULE PO (07:47)
[2023-03-31] MEDS: guaiFENesin LA 600 MG TAB.ER.12H PO ×2 (07:48→21:06)
[2023-03-31] MEDS: Gabapentin 300 MG CAPSULE PO ×3 (10:54→21:06)
[2023-03-31] MEDS: levoFLOXacin/D5W 750 MG/150 ML PIGGYBACK 100 MG IV (11:01)
--- NOTE | 2023-03-31 11:42 | PC.NURSE ---
Addendum entered by Marine Sparrow RN 03/31/23 16:31: report called to Micha LOMELI on med tele. Pt placed on portable monitor and transported off unit by RN. Pt verbalizes understanding of plan of care. Addendum entered by Marine Sparrow RN 03/31/23 13:41: Transfer orders placed for med tele. Right IJ TLC removed intact per orders. Occlusive dressing in place. Peripheral IV access patent/intact. Ken catheter removed at 1330, due to void by 2130. Pt OOB to chair at 1330. Family at bedside updated on plan of care. Original Note: Pt weaned off of norepinephrine gtt at 0932. Per Dr. Marquez MAP goal >60. Pt reporting ongoing pain/neuropathy to BLE, administered scheduled lyrica with little effect; gabapantin ordered and administered with little effect.
--- NOTE | 2023-03-31 13:15 | PM.CCPN ---
Subjective Subjective Date of Service: 03/31/23 Interval History: 72-year-old lady with underlying COPD, hypertension, obesity, left upper lobe lung cancer status post XRT, admitted on 03/29/2023 with lethargy, anuria, and dyspnea. On ER evaluation patient initially hypertensive, then with development of hypotension refractory to IV fluid support requiring initiation of pressor support on admission to the intensive care. Also with acute renal failure and urinary retention, improving after placement of fully and IV fluid resuscitation. Treated with empiric antibiotics. CT abdomen pelvis with constipation. CT chest with known at least with for the last 14 days left lower lobe infiltrate. No events overnight. Titrated off pressors. Renal function continues to improve. Critical Care Time (minutes): 0 Physical Exam Vital Signs: Vital Signs: Last Vital Signs Temp 97.8 F 03/31/23 12:00 Pulse 111 H 03/31/23 13:07 Resp 18 03/31/23 13:00 BP 96/54 L 03/31/23 13:07 Pulse Ox 92 03/31/23 13:00 O2 Del Method Nasal Cannula 03/31/23 13:00 O2 Flow Rate 5 03/31/23 13:00 Oxygen Flow Rate 3 03/29/23 12:16 BMI result Body Mass Index 45.8 Const: General: no acute distress, alert and awake Nutritional Appearance: obese Eyes: Sclerae: sclerae normal EOM: EOMs intact bilaterally Neck: Neck: Yes no lymphadenopathy, Yes trachea midline and Yes supple Resp: Effort & Inspection: normal respiratory effort and no respiratory distress Auscultation: clear to auscultation bilaterally Cardio: Rate: tachycardic Rhythm: regular rhythm Heart sounds: no gallops, no murmurs and no rubs GI: Palpation (GI): Soft to palpation and Other GI palpation findings present ( Nontender) Auscultation: normal bowel sounds Extrem: General: No clubbing, No cyanosis and Yes edema (1+ bilateral) Objective Data Labs 03/31/23 05:01 03/31/23 05:01 Labs: Laboratory Results - last 24 hr 03/31/23 03/31/23 03/31/23 05:01 05:01 05:04 WBC 19.1 H RBC 3.34 L Hgb 9.9 L Hct 31.2 L MCV 93.4 MCH 29.6 MCHC 31.7 RDW 16.0 Plt Count 207 MPV 10.6 Immature Gran % (Auto) 0.9 H Neut % (Auto) 86.6 H Lymph % (Auto) 4.2 L [place] % (Auto) 8.2 Eos % (Auto) 0.0 Baso % (Auto) 0.1 Lymph # (Auto) 0.8 L [place] # (Auto) 1.6 H Eos # (Auto) 0.0 Baso # (Auto) 0.0 Abs Immat Gran (auto) 0.17 H Absolute Neuts (auto) 16.5 H Absolute Nucleated RBC 0.000 Nucleated RBC % (auto) 0.0 Smear Tech's Comments VERIFIED VBG pH 7.37 VBG pCO2 49 VBG pO2 67 VBG HCO3 28 H VBG O2 Saturation 92.0 VBG Base Excess 2.9 Sodium 143 Potassium 3.9 Chloride 104 Carbon Dioxide 22 Anion Gap 21 H BUN 60 H Creatinine 2.48 H Estim Creat Clear Calc 24.8 Estimated GFR 19 Random Glucose 160 H Calcium 8.8 D Phosphorus 3.2 Magnesium 2.1 Total Bilirubin 0.3 AST 27 ALT 57 H Alkaline Phosphatase 114 Total Protein 5.9 L Albumin 3.7 Microbiology Microbiology Results: Microbiology 03/30/23 Unknown Urine Catheterized - Ken Catheter Urine Culture - Final 03/29/23 20:48 Sputum - Expectorated Gram Stain - Final 03/29/23 20:48 Sputum - Expectorated Sputum Culture - Preliminary 03/29/23 13:26 Blood - Venous Blood Culture - Preliminary No growth after 24 hours. 03/29/23 13:16 Blood - Venous Blood Culture - Preliminary No growth after 24 hours. Progress Note: A&P Assessment and plan (1) Pulmonary aspiration: Status: Acute (2) Acute kidney injury: Status: Acute (3) Intravascular volume depletion: Status: Acute (4) Morbid obesity: Status: Acute (5) COPD (chronic obstructive pulmonary disease): Status: Acute Plan Assessment: 72-year-old lady admitted with acute kidney injury, hypotension, and pulmonary aspiration Plan: Neuro: No acute issues. Cardiac: Titrated off pressors. Distributive shock likely secondary to an aspirating event, resolved. Pulmonary: Acute on chronic hypoxic respiratory failure likely secondary to aspiration on the background of uremia and acute renal failure. Improving. Perfusion scan with no support for pulmonary emboli. Heparin drip discontinued. Renal: Acute renal failure and intravascular volume depletion on the background of constipation and urinary retention. Non oliguric. Improving. Continue to monitor renal indices and urine output. Endo: No acute issues. GI: Constipation resolved with lactulose. ID: Empirically covered for pulmonary aspiration. Heme/Onc: No acute issues. Psych: No acute issues. Miscellaneous: No acute issues. Prophylaxis: Heparin Diet: Regular Quality Stroke Does the patient have a stroke diagnosis?: No VTE Prior VTE?: No VTE Risk Level:: Medical - moderate - high VTE Device Contraindication: Treatment Not Indicated VTE Drug Contraindication: N/A - Med Ordered
[2023-03-31] MEDS: Digoxin 0.5 MG/2 ML AMPUL 0.25 MG IVPUSH (16:16)
[2023-03-31] MEDS: Metoprolol Tartrate 5 MG/5 ML VIAL IVPUSH (17:49)
--- NOTE | 2023-03-31 18:07 | PM.PNNEP ---
Subjective Subjective Date of Service: 03/31/23 Interval history: Seen and examiend, events noted Physical Exam Vital Signs: Vital Signs: Last Vital Signs Temp 98.3 F 03/31/23 15:00 Pulse 117 H 03/31/23 16:00 Resp 19 03/31/23 16:00 BP 97/58 L 03/31/23 16:00 Pulse Ox 93 03/31/23 16:00 O2 Del Method Nasal Cannula 03/31/23 16:00 O2 Flow Rate 5 03/31/23 16:00 Oxygen Flow Rate 3 03/29/23 12:16 BMI result Body Mass Index 45.8 Const: General: alert and awake HEENT: Head: Yes normocephalic and Yes atraumatic Neck: Neck: Yes supple Resp: Auscultation: diminished lung sounds Cardio: Heart sounds: S1 normal heart sound present and S2 normal heart sound present GI: Palpation (GI): Soft to palpation and nontender Extrem: General: Yes pedal edema Objective Data Labs 03/31/23 05:01 03/31/23 05:01 Labs: Laboratory Results - last 24 hr 03/31/23 03/31/23 03/31/23 05:01 05:01 05:04 WBC 19.1 H RBC 3.34 L Hgb 9.9 L Hct 31.2 L MCV 93.4 MCH 29.6 MCHC 31.7 RDW 16.0 Plt Count 207 MPV 10.6 Immature Gran % (Auto) 0.9 H Neut % (Auto) 86.6 H Lymph % (Auto) 4.2 L [place] % (Auto) 8.2 Eos % (Auto) 0.0 Baso % (Auto) 0.1 Lymph # (Auto) 0.8 L [place] # (Auto) 1.6 H Eos # (Auto) 0.0 Baso # (Auto) 0.0 Abs Immat Gran (auto) 0.17 H Absolute Neuts (auto) 16.5 H Absolute Nucleated RBC 0.000 Nucleated RBC % (auto) 0.0 Smear Tech's Comments VERIFIED VBG pH 7.37 VBG pCO2 49 VBG pO2 67 VBG HCO3 28 H VBG O2 Saturation 92.0 VBG Base Excess 2.9 Sodium 143 Potassium 3.9 Chloride 104 Carbon Dioxide 22 Anion Gap 21 H BUN 60 H Creatinine 2.48 H Estim Creat Clear Calc 24.8 Estimated GFR 19 Random Glucose 160 H Calcium 8.8 D Phosphorus 3.2 Magnesium 2.1 Total Bilirubin 0.3 AST 27 ALT 57 H Alkaline Phosphatase 114 Total Protein 5.9 L Albumin 3.7 Microbiology Microbiology Results: Microbiology 03/29/23 13:26 Blood - Venous Blood Culture - Preliminary No growth after 48 hours. 03/29/23 13:16 Blood - Venous Blood Culture - Preliminary No growth after 48 hours. 03/30/23 Unknown Urine Catheterized - Ken Catheter Urine Culture - Final 03/29/23 20:48 Sputum - Expectorated Gram Stain - Final 03/29/23 20:48 Sputum - Expectorated Sputum Culture - Preliminary Procedures Date of Service Date of Service: 03/31/23 Assessment & Plan Assessment and plan (1) Acute kidney injury: Status: Acute (2) Pneumonia: Status: Acute (3) Metabolic acidosis: Status: Acute Plan DANA: peak SCr 5.5 and grad improvemet Scr 2.5 today c/w acute tubular injury in the setting of sepsis and [place] Obs r/o AGN: unlikely d/t improvedrenal func h/o recurrent DANA events on CKD 3 ( SCr camila 1.2) hypotensive: reoslved REC: cont IVF; track UOP/renal func;a void NSIADs Will follow with team Time Spent With Patient Time: Total time managing care of this patient today ____ minutes. Progress Note: Quality Stroke Does the patient have a stroke diagnosis?: No
[2023-03-31] MEDS: Metoprolol Tartrate 25 MG TABLET PO ×2 (18:19→23:26)
[2023-03-31] MEDS: Albuterol Sulfate (0.083%) 2.5 MG/3 ML VIAL.NEB INHALE (21:14)
[2023-04-01] VITALS (8 sets, daily range): BP systolic 96–110; BP diastolic 55–71; PULSE 85–109; RESP 18–20; TEMP 36–37.1; O2SAT 92–96
[2023-04-01] MEDS: oxyCODONE HCl Immed Release 5 MG TABLET PO (00:43)
[2023-04-01] MEDS: Throat Lozenge, Medicated LOZENGE 1 LOZENGE MUCOUS MEM ×2 (04:09→17:51)
[2023-04-01] MEDS: Morphine Sulfate 4 MG/ML CARTRIDGE IVPUSH (05:44)
[2023-04-01] MEDS: Metoprolol Tartrate 25 MG TABLET PO ×4 (05:49→23:48)
[2023-04-01] MEDS: Albuterol/Iprat 2.5/0.5MG 3 ML AMPUL.NEB INHALE ×2 (06:02→11:33)
--- NOTE | 2023-04-01 06:25 | PC.NURSE ---
Patient alert and oriented x 4. Heart rate in the 140s , pt c/o feeling flutters, EKG showed AFIB RVR, MD notified, order received to start Cardizem drip. Patient briefly converted to NSR then back to AFIB rate control, MD notified,per MD hold off on starting Cardizem. Schedule Metoprolol administered @ 0000 and 0600, pt HR 90-115 .
[2023-04-01 06:54] LABS: Venous Blood Gas Refer to POC result
[2023-04-01 06:55] LABS: MANUAL DIFF FLAG NO
[2023-04-01 06:56] LABS: VBG Base Excess 9.2 mmol/L; VBG HCO3 31 mmol/L (22-26); VBG pCO2 33 mmHg; VBG pH 7.58 (7.32-7.43); VBG pO2 200 mmHg
[2023-04-01 06:58] LABS: Basophils Percent Auto 0.2 % (0-2); Eosinophils Percent Auto 0.1 % (0-4); Hematocrit 33.2 % (37.0-47.0); Hemoglobin 10.2 g/dl (12.0-16.0); Imm Gran Abs Auto 0.13 X10*3/uL (0.00-0.03); Imm Gran Pct Auto 0.9 % (0.0-0.4); Lymphocytes Absolute Auto 1.8 X10*3/uL (1.2-4.9); Lymphocytes Percent Auto 12.5 % (20-40); Mean Corpuscular HGB Conc 30.7 g/dl (31.0-35.0); Mean Corpuscular Hemoglobin 29.4 pg (27.0-33.0); Mean Corpuscular Volume 95.7 fL (80.0-98.0); Monocytes Absolute Auto 1.2 X10*3/uL (0.1-1.2); Monocytes Percent Auto 8.3 % (2-11); Neutrophils Absolute Auto 11.3 x10*3/uL (2.0-8.3); Platelet Count 157 X10*3/uL (160-400); Red Blood Count 3.47 X10*6/uL (4.20-5.50); Red Cell Distribution Width 16.5 % (11.0-16.0); White Blood Count 14.5 X10*3/uL (4.8-10.8)
[2023-04-01 07:19] LABS: Albumin Level 3.4 g/dL (3.5-5.0); Anion Gap 16 (12-20); Blood Urea Nitrogen 50 mg/dL (9-16); Calcium 9.2 mg/dL (8.4-10.2); Carbon Dioxide 23 mmol/L (22-29); Chloride 108 mmol/L (96-108); Creatinine Clr Calc Pharmacy 35.6; Estimated Glomerular Filt Rate 29; Glucose Random 108 mg/dL (60-115); Magnesium 2.1 mg/dL (1.6-2.6); Phosphorus 2.5 mg/dL (2.7-4.5); Potassium 4.6 mmol/L (3.3-5.1); Sodium 142 mmol/L (135-145)
[2023-04-01] MEDS: Heparin Sodium,Porcine 5,000 UNIT/ML VIAL 5000 UNIT SUBCUT ×2 (08:04→14:25)
[2023-04-01] MEDS: Gabapentin 300 MG CAPSULE PO ×3 (08:05→20:59)
[2023-04-01] MEDS: guaiFENesin LA 600 MG TAB.ER.12H PO ×2 (08:05→20:59)
--- NOTE | 2023-04-01 14:00 | PM.PNCARD ---
Subjective Subjective Date of Service: 04/01/23 Principal diagnosis: Atrial fibrillation Interval history: I was consulted to see Nicole in cardiology consultation today for new onset atrial fibrillation. Patient denies any prior cardiac history. She has prior history of significantly advanced pulmonary parenchymal disease with COPD, has lung cancer in the left upper lobe, treated with radiation therapy, morbid obesity recently discharged from the hospital with acute respiratory failure with hypoxemia secondary to COPD exacerbation with pneumonia with acute kidney injury. Patient present hospital again with what appears to be altered mental status and inability to pass bowel are urine. Initially came to the emergency room and subsequently admitted to ICU because of hypotension requiring pressor support. Reviewing the ICU telemetry there is no clear atrial fibrillation noted but very poor artifactual rhythm strip but shows mostly normal sinus rhythm with PACs. Last time patient converted to atrial fibrillation rapid ventricular response. She denies any symptoms of palpitations or lightheadedness. This time also she had acute kidney injury which is slowly improving. Patient remains with significant hypoxemia requiring high level of oxygen. She denies any worsening shortness of breath with atrial fibrillation onset. Denies any chest pain. Denies any lightheadedness, syncope. She did receive IV Lopressor yesterday with some improvement in heart rate. However with oral Lopressor and rate control medication blood pressure is on the softer side. She has no prior history of atrial fibrillation. No bleeding issues. Review of Systems Constitutional: Reports lethargy and Reports weakness Cardiovascular: Denies chest pain, Denies rapid heart rate, Denies lightheadedness, Denies Loss of Consciousness, Denies palpitations and Reports dyspnea Respiratory: Reports no additional respiratory complaints and Reports dyspnea Gastrointestinal: Reports no additional gastrointestinal complaints Reports weakness Endocrine: Denies palpitations Physical Exam Vital Signs: Last Vital Signs Temp 96.9 F 04/01/23 11:07 Pulse 108 H 04/01/23 11:07 Resp 18 04/01/23 11:34 BP 99/55 L 04/01/23 11:07 Pulse Ox 94 04/01/23 11:07 O2 Del Method Nasal Cannula 04/01/23 11:07 O2 Flow Rate 4 04/01/23 11:07 Oxygen Flow Rate 3 03/29/23 12:16 BMI result Body Mass Index 45.8 Const General: cooperative, in distress mild and respiratory and ill appearing Nutritional Appearance: obese morbidly obese Orientation/consciousness: patient oriented x3 HEENT Head: Yes normocephalic and Yes atraumatic Neck Neck: Yes other (Cannot evaluate JVD) Resp Effort & Inspection: decreased respiratory effort Auscultation: wheezes scattered wheezes Cardio Rate: tachycardic Rhythm: abnormal rhythm irregularly irregular Heart sounds: S1 normal heart sound present and S2 normal heart sound present GI Auscultation: normal bowel sounds Skin General skin exam: no rashes or lesions noted Neuro General: patient oriented x3 and no focal motor deficits Extrem General: Yes no clubbing, cyanosis or edema Objective Labs and Meds 04/01/23 06:47 04/01/23 06:47 Lab results: Laboratory Results - last 24 hr 04/01/23 04/01/23 04/01/23 06:47 06:47 06:47 WBC 14.5 H RBC 3.47 L Hgb 10.2 L Hct 33.2 L MCV 95.7 MCH 29.4 MCHC 30.7 L RDW 16.5 H Plt Count 157 L MPV 11.0 Immature Gran % (Auto) 0.9 H Neut % (Auto) 78.0 H Lymph % (Auto) 12.5 L [place] % (Auto) 8.3 Eos % (Auto) 0.1 Baso % (Auto) 0.2 Lymph # (Auto) 1.8 [place] # (Auto) 1.2 Eos # (Auto) 0.0 Baso # (Auto) 0.0 Abs Immat Gran (auto) 0.13 H Absolute Neuts (auto) 11.3 H Absolute Nucleated RBC 0.000 Nucleated RBC % (auto) 0.0 VBG pH 7.58 H VBG pCO2 33 VBG pO2 200 VBG HCO3 31 H VBG O2 Saturation 100.0 VBG Base Excess 9.2 Sodium 142 Potassium 4.6 Chloride 108 Carbon Dioxide 23 Anion Gap 16 BUN 50 H Creatinine 1.71 H Estim Creat Clear Calc 35.6 Estimated GFR 29 Random Glucose 108 Calcium 9.2 Phosphorus 2.5 L Magnesium 2.1 Albumin 3.4 L Progress Note: A&P Assessment and plan (1) Atrial fibrillation with rapid ventricular response: Status: Acute Assessment and Plan: Atrial fibrillation this elderly woman with multiple recent hospitalization requiring multiple ICU admissions with admission again with altered mental status, acute kidney injury and COPD exacerbation developed atrial fibrillation. Patient also had episode of hypertension after she was given antihypertensives in the ED. This required vasopressor support. Patient currently without any symptoms related to atrial fibrillation but her rate is difficult to control. This appears to be new onset atrial fibrillation as she has no history of atrial fibrillation the past and recent to admission she had no episodes of atrial fibrillation. She is at high risk for atrial fibrillation given her morbid obesity, hypertension and severe pulmonary disease. At this point time given that his less than 24 hours with atrial fibrillation would start on oral anticoagulation with Eliquis 5 mg b.i.d. and start on IV amiodarone given her softer blood pressure to try to pursue rhythm control approach. If she converts to sinus rhythm with IV amiodarone then will start on p.o. amiodarone loading. Continue supportive care. Continue treatment for bronchospastic airway disease. Overall prognosis is guarded. Will follow with you Time Spent With Patient Time: Total time managing care of this patient today ____ minutes. Progress Note: Quality Stroke Does the patient have a stroke diagnosis?: No Procedures Date of Service Date of Service: 04/01/23
[2023-04-01] MEDS: Amiodarone/Dextrose 150 MG/100 ML PLAST..BAG 600 MG IV (14:22)
[2023-04-01] MEDS: Amiodarone HCL 900 MG in 0.9 % Sodium Chloride 500 ML 34.53 MG IVCONT (14:35)
[2023-04-01] MEDS: Apixaban 5 MG TABLET PO ×2 (14:58→20:58)
--- NOTE | 2023-04-01 15:09 | HO.PM.IMPN ---
Subjective Subjective Date of Service: 04/01/23 Interval History: Remained in AFib with rapid ventricular response most of evening with heart rates between 100-120. She states she had no discomfort during the night however did not sleep Review of Systems Denies chest pain Denies shortness of breath Denies nausea vomiting diarrhea Denies fever chills Physical Exam Vital Signs: Vital Signs: Last Vital Signs Temp 96.9 F 04/01/23 11:07 Pulse 108 H 04/01/23 11:07 Resp 18 04/01/23 11:34 BP 99/55 L 04/01/23 11:07 Pulse Ox 94 04/01/23 11:07 O2 Del Method Nasal Cannula 04/01/23 11:07 O2 Flow Rate 4 04/01/23 11:07 Oxygen Flow Rate 3 03/29/23 12:16 BMI result Body Mass Index 45.8 Const: Other: No acute distress Resp: Other: Clear to auscultation bilaterally but diminished at bases Cardio: Other: Irregularly irregular rhythm. No S4; positive S1-S2; no S3 murmurs rubs or gallops GI: Other: Obese positive bowel sounds Extrem: Other: Bilateral edema Objective Data Active Medications Albuterol Sulfate (Albuterol Sulfate (0.083%) 2.5 Mg/3 Ml Vial.Neb) 2.5 mg INHALE Q2H PRN PRN Reason: Wheezing Last Admin: 03/31/23 21:14 Dose: 2.5 mg Documented By: CRESCENCIO Albuterol/Ipratropium (Albuterol/Iprat 2.5/0.5mg 3 Ml Ampul.Neb) 3 ml INHALE RQ6H [facility] Last Admin: 04/01/23 11:33 Dose: 3 ml Documented By: DAFNE Apixaban (Apixaban 5 Mg Tablet) 5 mg PO BID [facility] Last Admin: 04/01/23 14:58 Dose: 5 mg Documented By: GORAN Benzocaine (Throat Lozenge, Medicated Lozenge) 1 lozenge MUCOUS MEM Q2H PRN PRN Reason: Sore Throat Last Admin: 04/01/23 04:09 Dose: 1 lozenge Documented By: BEE Gabapentin (Gabapentin 300 Mg Capsule) 300 mg PO TID [facility] Last Admin: 04/01/23 14:25 Dose: 300 mg Documented By: GORAN Guaifenesin (Guaifenesin La 600 Mg Tab.Er.12h) 600 mg PO BID [facility] Last Admin: 04/01/23 08:05 Dose: 600 mg Documented By: GORAN Levofloxacin (Levaquin) 750 mg in 150 mls @ 100 mls/hr IV Q48H [facility] Last Infusion: 03/31/23 12:31 Dose: 0 mls/hr Documented By: CHARLENE Amiodarone HCl 900 mg/ Sodium (Chloride) 518 mls @ 34.533 mls/hr IVCONT .Q15H1M [facility]; Protocol Last Admin: 04/01/23 14:35 Dose: 1 mg/min, 34.53 mls/hr Documented By: GORAN Metoprolol Tartrate (Metoprolol Tartrate 25 Mg Tablet) 25 mg PO Q6H [facility]; Protocol Last Admin: 04/01/23 12:34 Dose: 25 mg Documented By: GORAN Multi-Ingred Medicated Throat Quail (Throat Quail, Medicated 177 Ml Bottle) 1 spray MUCOUS MEM Q2H PRN PRN Reason: Pain, Severe (Pain Scale 7-10) Oxycodone HCl (Oxycodone Hcl Immed Release 5 Mg Tablet) 10 mg PO Q4H PRN PRN Reason: Pain, Moderate(Pain Scale 4-6) Pharmacy Consult (Consult Rx Perform Med Rec) 1 each MISCELLANE ONCE PRN PRN Reason: Consult order Labs 04/01/23 06:47 04/01/23 06:47 Labs: Laboratory Results - last 24 hr 04/01/23 04/01/23 04/01/23 06:47 06:47 06:47 MCV 95.7 MCH 29.4 MCHC 30.7 L RDW 16.5 H Plt Count 157 L MPV 11.0 Immature Gran % (Auto) 0.9 H Neut % (Auto) 78.0 H Lymph % (Auto) 12.5 L [place] % (Auto) 8.3 Eos % (Auto) 0.1 Baso % (Auto) 0.2 Lymph # (Auto) 1.8 [place] # (Auto) 1.2 Eos # (Auto) 0.0 Baso # (Auto) 0.0 Abs Immat Gran (auto) 0.13 H Absolute Neuts (auto) 11.3 H Absolute Nucleated RBC 0.000 Nucleated RBC % (auto) 0.0 VBG pH 7.58 H VBG pCO2 33 VBG pO2 200 VBG HCO3 31 H VBG O2 Saturation 100.0 VBG Base Excess 9.2 Anion Gap 16 Estim Creat Clear Calc 35.6 Estimated GFR 29 Random Glucose 108 Calcium 9.2 Phosphorus 2.5 L Magnesium 2.1 Albumin 3.4 L Microbiology Microbiology Results: Microbiology 03/29/23 20:48 Gram Stain - Final Sputum - Expectorated Sputum Culture - Final 03/29/23 13:26 Blood Culture - Preliminary Blood - Venous No growth after 48 hours. 03/29/23 13:16 Blood Culture - Preliminary Blood - Venous No growth after 48 hours. Assessment and Plan (1) Sepsis associated hypotension: Status: Acute (2) Atrial fibrillation with rapid ventricular response: Status: Acute (3) Acute kidney injury: Status: Acute (4) Pneumonia: Status: Acute Plan 72-year-old female with significantly advanced pulmonary parenchymal disease with COPD status post radiation therapy for left upper lobe lung cancer presents to the hospital with altered mental status. In the emergency room found to be hypo by intensive requiring pressor support. She was transferred to the ICU where she ultimately was weaned off of pressors. She transferred to the floor a.m. of 03/31; mid afternoon she developed atrial fibrillation with a rapid ventricular response in the 150s. She was given 1 dose of Lopressor 5 mg IV with good results and p.o. Lopressor was started. Throughout the night she remained in AFib and rate was poorly control. Blood pressures have been maintaining between 90 and 100 systolic 1. Sepsis secondary to pneumonia -resolved 2. AFib with rapid ventricular response -amiodarone load IV in progress -Eliquis 5 mg b.i.d. started -follow response to therapy -2D echo when available 3. DANA -creatinine initially 5.1 on admission this a.m. 1.71 -continue gentle volume repletion -follow renals/divalents 4. Left lower lobe infiltrate -complete course of Levaquin Eliquis DNR DNI Patient will require ongoing hospitalization to complete amiodarone load Time Spent With Patient Time: Total time managing care of this patient today ____ minutes. Quality Stroke Does the patient have a stroke diagnosis?: No VTE Prior VTE?: No VTE Risk Level:: Medical - moderate - high VTE Device Contraindication: Treatment Not Indicated VTE Drug Contraindication: N/A - Med Ordered
--- NOTE | 2023-04-01 17:11 | PM.PNNEP ---
Subjective Subjective Date of Service: 04/01/23 Principal diagnosis: Atrial fibrillation Interval history: Seen and examined, events noted Physical Exam Vital Signs: Vital Signs: Last Vital Signs Temp 97.3 F 04/01/23 16:00 Pulse 95 04/01/23 16:00 Resp 20 04/01/23 16:00 BP 109/63 04/01/23 16:00 Pulse Ox 92 04/01/23 16:00 O2 Del Method Nasal Cannula 04/01/23 16:00 O2 Flow Rate 4 04/01/23 16:00 Oxygen Flow Rate 3 03/29/23 12:16 BMI result Body Mass Index 45.8 Const: General: alert and awake HEENT: Head: Yes normocephalic and Yes atraumatic Neck: Neck: Yes supple Resp: Auscultation: diminished lung sounds Cardio: Heart sounds: S1 normal heart sound present and S2 normal heart sound present GI: Palpation (GI): Soft to palpation and nontender Extrem: General: Yes pedal edema Objective Data Labs 04/01/23 06:47 04/01/23 06:47 Labs: Laboratory Results - last 24 hr 04/01/23 04/01/23 04/01/23 06:47 06:47 06:47 WBC 14.5 H RBC 3.47 L Hgb 10.2 L Hct 33.2 L MCV 95.7 MCH 29.4 MCHC 30.7 L RDW 16.5 H Plt Count 157 L MPV 11.0 Immature Gran % (Auto) 0.9 H Neut % (Auto) 78.0 H Lymph % (Auto) 12.5 L [place] % (Auto) 8.3 Eos % (Auto) 0.1 Baso % (Auto) 0.2 Lymph # (Auto) 1.8 [place] # (Auto) 1.2 Eos # (Auto) 0.0 Baso # (Auto) 0.0 Abs Immat Gran (auto) 0.13 H Absolute Neuts (auto) 11.3 H Absolute Nucleated RBC 0.000 Nucleated RBC % (auto) 0.0 VBG pH 7.58 H VBG pCO2 33 VBG pO2 200 VBG HCO3 31 H VBG O2 Saturation 100.0 VBG Base Excess 9.2 Sodium 142 Potassium 4.6 Chloride 108 Carbon Dioxide 23 Anion Gap 16 BUN 50 H Creatinine 1.71 H Estim Creat Clear Calc 35.6 Estimated GFR 29 Random Glucose 108 Calcium 9.2 Phosphorus 2.5 L Magnesium 2.1 Albumin 3.4 L Microbiology Microbiology Results: Microbiology 03/29/23 20:48 Sputum - Expectorated Gram Stain - Final 03/29/23 20:48 Sputum - Expectorated Sputum Culture - Final 03/29/23 13:26 Blood - Venous Blood Culture - Preliminary No growth after 48 hours. 03/29/23 13:16 Blood - Venous Blood Culture - Preliminary No growth after 48 hours. 03/30/23 Unknown Urine Catheterized - Ken Catheter Urine Culture - Final Procedures Date of Service Date of Service: 04/01/23 Assessment & Plan Assessment and plan (1) Acute kidney injury: Status: Acute (2) Pneumonia: Status: Acute (3) Metabolic acidosis: Status: Acute Plan DANA: peak SCr 5.5 and grad improvemet Scr1.7 today c/w acute tubular injury in the setting of sepsis and peumonia Obs r/o AGN: unlikely d/t improved renal func h/o recurrent DANA events on CKD 3 ( SCr camila 1.2) hypotensive: reoslved REC: cont IVF and look to d/c in am; track UOP/renal func; avoid NSIADs Will follow with team Time Spent With Patient Time: Total time managing care of this patient today ____ minutes. Progress Note: Quality Stroke Does the patient have a stroke diagnosis?: No
[2023-04-01] MEDS: oxyCODONE HCl Immed Release 5 MG TABLET 10 MG PO ×2 (17:50→22:07)
[2023-04-01] MEDS: Throat Spray, Medicated 177 ML BOTTLE 1 SPRAY MUCOUS MEM ×3 (17:52→23:46)
[2023-04-01] MEDS: Mag&Al/Sim/Diphenhyd/Lidocaine 10 ML ORAL.SUSP PO (20:59)
[2023-04-02] VITALS (9 sets, daily range): BP systolic 109–130; BP diastolic 54–64; PULSE 69–96; RESP 18–24; TEMP 36.1–37.1; O2SAT 92–98; BMI 45.4
[2023-04-02] MEDS: Albuterol/Iprat 2.5/0.5MG 3 ML AMPUL.NEB INHALE ×3 (00:21→20:36)
[2023-04-02] MEDS: Metoprolol Tartrate 25 MG TABLET PO ×2 (05:23→13:19)
[2023-04-02] MEDS: Amiodarone HCL 900 MG in 0.9 % Sodium Chloride 500 ML 17.27 MG IVCONT (05:25)
[2023-04-02 07:26] LABS: MANUAL DIFF FLAG NO
[2023-04-02 07:32] LABS: Basophils Percent Auto 0.2 % (0-2); Eosinophils Absolute Auto 0.2 X10*3/uL (0.0-0.4); Eosinophils Percent Auto 1.4 % (0-4); Hematocrit 35.2 % (37.0-47.0); Hemoglobin 10.6 g/dl (12.0-16.0); Imm Gran Abs Auto 0.09 X10*3/uL (0.00-0.03); Imm Gran Pct Auto 0.8 % (0.0-0.4); Lymphocytes Absolute Auto 1.8 X10*3/uL (1.2-4.9); Lymphocytes Percent Auto 15.3 % (20-40); Mean Corpuscular HGB Conc 30.1 g/dl (31.0-35.0); Mean Corpuscular Hemoglobin 29.7 pg (27.0-33.0); Mean Corpuscular Volume 98.6 fL (80.0-98.0); Mean Platelet Volume 10.9 fL (9.4-12.3); Monocytes Percent Auto 8.3 % (2-11); Neutrophils Absolute Auto 8.7 x10*3/uL (2.0-8.3); Platelet Count 176 X10*3/uL (160-400); Red Blood Count 3.57 X10*6/uL (4.20-5.50); Red Cell Distribution Width 16.5 % (11.0-16.0); White Blood Count 11.8 X10*3/uL (4.8-10.8)
[2023-04-02] MEDS: guaiFENesin LA 600 MG TAB.ER.12H PO ×2 (07:54→21:36)
[2023-04-02] MEDS: Gabapentin 300 MG CAPSULE PO ×3 (07:54→21:36)
[2023-04-02] MEDS: Apixaban 5 MG TABLET PO ×2 (07:55→21:36)
[2023-04-02 08:05] LABS: Alanine Aminotransferase 58 U/L (0-31); Albumin Level 3.5 g/dL (3.5-5.0); Alkaline Phosphatase 105 U/L (39-117); Anion Gap 15 (12-20); Aspartate Amino Transferase 21 U/L (5-31); Bilirubin Total 0.4 mg/dL (0.0-1.0); Blood Urea Nitrogen 39 mg/dL (9-16); Calcium 9.8 mg/dL (8.4-10.2); Carbon Dioxide 28 mmol/L (22-29); Chloride 106 mmol/L (96-108); Creatinine Clr Calc Pharmacy 43.7; Estimated Glomerular Filt Rate 37; Glucose Fasting 115 mg/dL (60-99); Potassium 5.1 mmol/L (3.3-5.1); Sodium 144 mmol/L (135-145); Total Protein 5.9 g/dL (6.5-8.0)
--- NOTE | 2023-04-02 11:46 | PM.PNCARD ---
Subjective Subjective Date of Service: 04/02/23 Principal diagnosis: Atrial fibrillation Interval history: Patient remains in atrial fibrillation did not convert with IV amiodarone. Rate controlled. Things status is stable. Kidney function is improving. Blood pressure is improved. Review of Systems Constitutional: Reports no additional constitutional complaints Cardiovascular: Reports no additional cardiovascular complaints Respiratory: Reports no additional respiratory complaints Musculoskeletal: Reports no additional musculoskeletal complaints Reports system reviewed and no additional complaints, except as documented Physical Exam Vital Signs: Last Vital Signs Temp 96.9 F 04/02/23 11:02 Pulse 91 04/02/23 11:23 Resp 20 04/02/23 11:23 BP 109/60 04/02/23 11:02 Pulse Ox 94 04/02/23 11:02 O2 Del Method Nasal Cannula 04/02/23 11:02 O2 Flow Rate 4 04/02/23 11:02 Oxygen Flow Rate 3 03/29/23 12:16 BMI result Body Mass Index 45.4 Const General: cooperative, in distress mild and respiratory and ill appearing Nutritional Appearance: obese morbidly obese Orientation/consciousness: patient oriented x3 HEENT Head: Yes normocephalic and Yes atraumatic Neck Neck: Yes other (Cannot evaluate JVD) Resp Effort & Inspection: decreased respiratory effort Auscultation: wheezes scattered wheezes Cardio Rate: tachycardic Rhythm: abnormal rhythm irregularly irregular Heart sounds: S1 normal heart sound present and S2 normal heart sound present GI Auscultation: normal bowel sounds Skin General skin exam: no rashes or lesions noted Neuro General: patient oriented x3 and no focal motor deficits Extrem General: Yes no clubbing, cyanosis or edema Objective Labs and Meds 04/02/23 07:21 04/02/23 07:21 Lab results: Laboratory Results - last 24 hr 04/02/23 04/02/23 07:21 07:21 WBC 11.8 H RBC 3.57 L Hgb 10.6 L Hct 35.2 L MCV 98.6 H MCH 29.7 MCHC 30.1 L RDW 16.5 H Plt Count 176 MPV 10.9 Immature Gran % (Auto) 0.8 H Neut % (Auto) 74.0 H Lymph % (Auto) 15.3 L [place] % (Auto) 8.3 Eos % (Auto) 1.4 Baso % (Auto) 0.2 Lymph # (Auto) 1.8 [place] # (Auto) 1.0 Eos # (Auto) 0.2 Baso # (Auto) 0.0 Abs Immat Gran (auto) 0.09 H Absolute Neuts (auto) 8.7 H Absolute Nucleated RBC 0.000 Nucleated RBC % (auto) 0.0 Sodium 144 Potassium 5.1 Chloride 106 Carbon Dioxide 28 Anion Gap 15 BUN 39 H Creatinine 1.39 Estim Creat Clear Calc 43.7 Estimated GFR 37 Fasting Glucose 115 H Calcium 9.8 D Total Bilirubin 0.4 AST 21 ALT 58 H Alkaline Phosphatase 105 Total Protein 5.9 L Albumin 3.5 Progress Note: A&P Assessment and plan (1) Atrial fibrillation with rapid ventricular response: Status: Acute Assessment and Plan: Atrial fibrillation controlled ventricular response with improved blood pressure. Can transition to p.o. Cardizem for rate control and give 2 doses of digoxin IV push 0.25 mg q.6 hours apart. Can then slowly taper amiodarone drip and discontinue it as patient fails to convert to sinus rhythm. By tomorrow we should be able to discontinue amiodarone drip and maximize rate control with oral medications. Can consider starting on digoxin 0.125 mg daily tomorrow. Continue full oral anticoagulation Eliquis. Switch to pulmonary specific bronchodilators such as Xopenex. Continue supportive care. Will sign of the case at this point time. Thank you for allowing me to partake in her care Time Spent With Patient Time: Total time managing care of this patient today ____ minutes. Progress Note: Quality Stroke Does the patient have a stroke diagnosis?: No Procedures Date of Service Date of Service: 04/02/23
--- NOTE | 2023-04-02 12:55 | PM.PNNEP ---
Subjective Subjective Date of Service: 04/02/23 Principal diagnosis: Atrial fibrillation Interval history: Seen and examined, events noted Physical Exam Vital Signs: Vital Signs: Last Vital Signs Temp 96.9 F 04/02/23 11:02 Pulse 91 04/02/23 11:23 Resp 20 04/02/23 11:23 BP 109/60 04/02/23 11:02 Pulse Ox 94 04/02/23 11:02 O2 Del Method Nasal Cannula 04/02/23 11:02 O2 Flow Rate 4 04/02/23 11:02 Oxygen Flow Rate 3 03/29/23 12:16 BMI result Body Mass Index 45.4 Const: General: alert and awake HEENT: Head: Yes normocephalic and Yes atraumatic Neck: Neck: Yes supple Resp: Auscultation: diminished lung sounds Cardio: Heart sounds: S1 normal heart sound present and S2 normal heart sound present GI: Palpation (GI): Soft to palpation and nontender Extrem: General: Yes pedal edema Objective Data Labs 04/02/23 07:21 04/02/23 07:21 Labs: Laboratory Results - last 24 hr 04/02/23 04/02/23 07:21 07:21 WBC 11.8 H RBC 3.57 L Hgb 10.6 L Hct 35.2 L MCV 98.6 H MCH 29.7 MCHC 30.1 L RDW 16.5 H Plt Count 176 MPV 10.9 Immature Gran % (Auto) 0.8 H Neut % (Auto) 74.0 H Lymph % (Auto) 15.3 L [place] % (Auto) 8.3 Eos % (Auto) 1.4 Baso % (Auto) 0.2 Lymph # (Auto) 1.8 [place] # (Auto) 1.0 Eos # (Auto) 0.2 Baso # (Auto) 0.0 Abs Immat Gran (auto) 0.09 H Absolute Neuts (auto) 8.7 H Absolute Nucleated RBC 0.000 Nucleated RBC % (auto) 0.0 Sodium 144 Potassium 5.1 Chloride 106 Carbon Dioxide 28 Anion Gap 15 BUN 39 H Creatinine 1.39 Estim Creat Clear Calc 43.7 Estimated GFR 37 Fasting Glucose 115 H Calcium 9.8 D Total Bilirubin 0.4 AST 21 ALT 58 H Alkaline Phosphatase 105 Total Protein 5.9 L Albumin 3.5 Microbiology Microbiology Results: Microbiology 03/29/23 20:48 Sputum - Expectorated Gram Stain - Final 03/29/23 20:48 Sputum - Expectorated Sputum Culture - Final 03/29/23 13:26 Blood - Venous Blood Culture - Preliminary No growth after 48 hours. 03/29/23 13:16 Blood - Venous Blood Culture - Preliminary No growth after 48 hours. 03/30/23 Unknown Urine Catheterized - Ken Catheter Urine Culture - Final Procedures Date of Service Date of Service: 04/02/23 Assessment & Plan Assessment and plan (1) Acute kidney injury: Status: Acute (2) Pneumonia: Status: Acute (3) Metabolic acidosis: Status: Acute Plan DANA: peak SCr 5.5 and cont improvemet Scr1.4 today c/w acute tubular injury in the setting of sepsis and peumonia Obs r/o h/o recurrent DANA events on CKD 3 ( SCr camila 1.2) hypotensive: reoslved REC: no new recs; cont IVF and look to d/c in am; track UOP/renal func; avoid NSIADs Will follow with team Time Spent With Patient Time: Total time managing care of this patient today ____ minutes. Progress Note: Quality Stroke Does the patient have a stroke diagnosis?: No
--- NOTE | 2023-04-02 14:10 | P.PNIM_ITS ---
Subjective Subjective Date of Service: 04/02/23 Interval History: No acute events overnight. Voices no complaints. Remains in atrial fibrillation with controlled rate despite amiodarone load Review of Systems Denies chest pain Denies shortness of breath Denies nausea vomiting diarrhea Denies fever chills Physical Exam Vital Signs: Vital Signs: Last Vital Signs Temp 96.9 F 04/02/23 11:02 Pulse 91 04/02/23 11:23 Resp 20 04/02/23 11:23 BP 109/60 04/02/23 11:02 Pulse Ox 94 04/02/23 11:02 O2 Del Method Nasal Cannula 04/02/23 11:02 O2 Flow Rate 4 04/02/23 11:02 Oxygen Flow Rate 3 03/29/23 12:16 BMI result Body Mass Index 45.4 Const: Other: No acute distress Resp: Other: Clear to auscultation bilaterally but diminished at bases Cardio: Other: Irregularly irregular rhythm. No S4; positive S1-S2; no S3 murmurs rubs or gallops GI: Other: Obese positive bowel sounds Extrem: Other: Bilateral edema Objective Data Active Medications Albuterol Sulfate (Albuterol Sulfate (0.083%) 2.5 Mg/3 Ml Vial.Neb) 2.5 mg INHALE Q2H PRN PRN Reason: Wheezing Last Admin: 03/31/23 21:14 Dose: 2.5 mg Documented By: CRESCENCIO Albuterol/Ipratropium (Albuterol/Iprat 2.5/0.5mg 3 Ml Ampul.Neb) 3 ml INHALE RQ6H [facility] Last Admin: 04/02/23 11:22 Dose: 3 ml Documented By: DAFNE Apixaban (Apixaban 5 Mg Tablet) 5 mg PO BID [facility] Last Admin: 04/02/23 07:55 Dose: 5 mg Documented By: GORAN Benzocaine (Throat Lozenge, Medicated Lozenge) 1 lozenge MUCOUS MEM Q2H PRN PRN Reason: Sore Throat Last Admin: 04/01/23 17:51 Dose: 1 lozenge Documented By: GORAN Gabapentin (Gabapentin 300 Mg Capsule) 300 mg PO TID [facility] Last Admin: 04/02/23 07:54 Dose: 300 mg Documented By: GORAN Guaifenesin (Guaifenesin La 600 Mg Tab.Er.12h) 600 mg PO BID [facility] Last Admin: 04/02/23 07:54 Dose: 600 mg Documented By: GORAN Levofloxacin (Levaquin) 750 mg in 150 mls @ 100 mls/hr IV Q48H [facility] Last Infusion: 03/31/23 12:31 Dose: 0 mls/hr Documented By: CHARLENE Amiodarone HCl 900 mg/ Sodium (Chloride) 518 mls @ 34.533 mls/hr IVCONT .Q15H1M [facility]; Protocol Last Admin: 04/02/23 05:25 Dose: 0.5 mg/min, 17.27 mls/hr Documented By: BEE Lidocaine/Diphenhydr/Alum/Mg/Simeth (Mag&Al/Sim/Diphenhyd/Lidocaine 10 Ml Oral.Susp) 10 ml PO Q4H PRN; Protocol PRN Reason: mouth pain Last Admin: 04/01/23 20:59 Dose: 10 ml Documented By: BEE Metoprolol Tartrate (Metoprolol Tartrate 25 Mg Tablet) 25 mg PO Q6H [facility]; Protocol Last Admin: 04/02/23 13:19 Dose: 25 mg Documented By: MIKE Multi-Ingred Medicated Throat [place] (Throat [place], Medicated 177 Ml Bottle) 1 spray MUCOUS MEM Q2H PRN PRN Reason: Pain, Severe (Pain Scale 7-10) Last Admin: 04/01/23 23:46 Dose: 1 spray Documented By: BEE Oxycodone HCl (Oxycodone Hcl Immed Release 5 Mg Tablet) 10 mg PO Q4H PRN PRN Reason: Pain, Moderate(Pain Scale 4-6) Last Admin: 04/01/23 22:07 Dose: 10 mg Documented By: BEE Pharmacy Consult (Consult Rx Perform Med Rec) 1 each MISCELLANE ONCE PRN PRN Reason: Consult order Labs 04/02/23 07:21 04/02/23 07:21 Labs: Laboratory Results - last 24 hr 04/02/23 04/02/23 07:21 07:21 MCV 98.6 H MCH 29.7 MCHC 30.1 L RDW 16.5 H Plt Count 176 MPV 10.9 Immature Gran % (Auto) 0.8 H Neut % (Auto) 74.0 H Lymph % (Auto) 15.3 L [place] % (Auto) 8.3 Eos % (Auto) 1.4 Baso % (Auto) 0.2 Lymph # (Auto) 1.8 [place] # (Auto) 1.0 Eos # (Auto) 0.2 Baso # (Auto) 0.0 Abs Immat Gran (auto) 0.09 H Absolute Neuts (auto) 8.7 H Absolute Nucleated RBC 0.000 Nucleated RBC % (auto) 0.0 Anion Gap 15 Estim Creat Clear Calc 43.7 Estimated GFR 37 Fasting Glucose 115 H Calcium 9.8 D Total Bilirubin 0.4 AST 21 ALT 58 H Alkaline Phosphatase 105 Total Protein 5.9 L Albumin 3.5 Assessment and Plan (1) Sepsis: Status: Acute (2) Atrial fibrillation with rapid ventricular response: Status: Acute (3) Acute kidney injury: Status: Acute (4) Pneumonia: Status: Acute Plan 72-year-old female with significantly advanced pulmonary parenchymal disease with COPD status post radiation therapy for left upper lobe lung cancer presents to the hospital with altered mental status. In the emergency room found to be hypo by intensive requiring pressor support. She was transferred to the ICU where she ultimately was weaned off of pressors. She transferred to the floor a.m. of 03/31; mid afternoon she developed atrial fibrillation with a rapid ventricular response in the 150s. She was given 1 dose of Lopressor 5 mg IV with good results and p.o. Lopressor was started. Throughout the night she remained in AFib and rate was poorly control. Blood pressures have been maintaining between 90 and 100 systolic 1. Sepsis secondary to pneumonia -resolved 2. AFib with rapid ventricular response (did not respond to amiodarone IV load) -taper amiodarone as per protocol -continue Eliquis 5 mg b.i.d. -add Cardizem 30 mg p.o. q.6 hours -did slowed with 0.25 q.6 hours x3 doses -start digoxin 0.125 daily in a.m. 3. DANA -resolving -continue gentle volume repletion -follow renals/divalents 4. Left lower lobe infiltrate -complete course of Levaquin (11/11) -switch to p.o. in a.m. Eliquis DNR DNI Patient will require ongoing hospitalization to complete amiodarone load and complete treatment of left lower lobe infiltrate Time Spent With Patient Time: Total time managing care of this patient today ____ minutes. Quality Stroke Does the patient have a stroke diagnosis?: No VTE Prior VTE?: No VTE Risk Level:: Medical - moderate - high VTE Device Contraindication: Treatment Not Indicated VTE Drug Contraindication: N/A - Med Ordered
[2023-04-02] MEDS: levoFLOXacin/D5W 750 MG/150 ML PIGGYBACK 100 MG IV (14:26)
[2023-04-02] MEDS: dilTIAZem HCL 30 MG TABLET PO ×2 (15:50→21:36)
[2023-04-02] MEDS: Digoxin 0.5 MG/2 ML AMPUL 0.25 MG IVPUSH ×2 (15:54→21:36)
--- NOTE | 2023-04-02 20:25 | PM.EVENT ---
Event Note Date of Service: 04/02/23 Event Note: pt requsting palacios cath as she states any minimal movement makes her SOB. explained increased risk of infection,. pt still wants the catheter. ordser placed Time Spent With Patient Time: Total time managing care of this patient today ____ minutes.
[2023-04-03] VITALS (7 sets, daily range): BP systolic 119–132; BP diastolic 56–63; PULSE 74–105; RESP 15–22; TEMP 36.1–36.6; O2SAT 86–95; BMI 46.0
--- NOTE | 2023-04-03 01:42 | PC.NURSE ---
patient converted to SR at 20:29 on 04/02.
[2023-04-03] MEDS: oxyCODONE HCl Immed Release 5 MG TABLET 10 MG PO ×3 (03:28→15:51)
[2023-04-03 07:03] LABS: MANUAL DIFF FLAG NO
[2023-04-03 07:10] LABS: Basophils Percent Auto 0.3 % (0-2); Eosinophils Absolute Auto 0.3 X10*3/uL (0.0-0.4); Eosinophils Percent Auto 2.7 % (0-4); Hematocrit 34.5 % (37.0-47.0); Hemoglobin 10.1 g/dl (12.0-16.0); Imm Gran Abs Auto 0.06 X10*3/uL (0.00-0.03); Imm Gran Pct Auto 0.6 % (0.0-0.4); Lymphocytes Absolute Auto 1.7 X10*3/uL (1.2-4.9); Lymphocytes Percent Auto 16.7 % (20-40); Mean Corpuscular HGB Conc 29.3 g/dl (31.0-35.0); Mean Corpuscular Hemoglobin 29.1 pg (27.0-33.0); Mean Corpuscular Volume 99.4 fL (80.0-98.0); Mean Platelet Volume 11.2 fL (9.4-12.3); Monocytes Absolute Auto 0.8 X10*3/uL (0.1-1.2); Monocytes Percent Auto 7.9 % (2-11); Neutrophils Absolute Auto 7.5 x10*3/uL (2.0-8.3); Neutrophils Percent Auto 71.8 % (45-73); Platelet Count 170 X10*3/uL (160-400); Red Blood Count 3.47 X10*6/uL (4.20-5.50); White Blood Count 10.4 X10*3/uL (4.8-10.8)
[2023-04-03 07:28] LABS: Alanine Aminotransferase 49 U/L (0-31); Albumin Level 3.4 g/dL (3.5-5.0); Alkaline Phosphatase 96 U/L (39-117); Anion Gap 14 (12-20); Aspartate Amino Transferase 19 U/L (5-31); Bilirubin Total 0.4 mg/dL (0.0-1.0); Blood Urea Nitrogen 32 mg/dL (9-16); Carbon Dioxide 28 mmol/L (22-29); Chloride 106 mmol/L (96-108); Creatinine Clr Calc Pharmacy 48.9; Estimated Glomerular Filt Rate 42; Glucose Fasting 96 mg/dL (60-99); Sodium 143 mmol/L (135-145); Total Protein 5.8 g/dL (6.5-8.0)
[2023-04-03] MEDS: Gabapentin 300 MG CAPSULE PO ×3 (08:00→20:55)
[2023-04-03] MEDS: Digoxin 0.125 MG TABLET PO (08:00)
[2023-04-03] MEDS: guaiFENesin LA 600 MG TAB.ER.12H PO ×2 (08:00→20:55)
[2023-04-03] MEDS: Apixaban 5 MG TABLET PO ×2 (08:00→20:55)
[2023-04-03] MEDS: dilTIAZem HCL 30 MG TABLET PO (08:00)
--- NOTE | 2023-04-03 10:13 | P.PNIM_ITS ---
Subjective Subjective Date of Service: 04/03/23 Interval History: f/u on pna, afib with rvr Physical Exam Vital Signs: Vital Signs: Last Vital Signs Temp 96.9 F 04/03/23 07:19 Pulse 83 04/03/23 07:19 Resp 20 04/03/23 07:19 BP 129/60 04/03/23 07:19 Pulse Ox 93 04/03/23 07:19 O2 Del Method Nasal Cannula 04/03/23 07:19 O2 Flow Rate 5 04/03/23 07:19 Oxygen Flow Rate 3 03/29/23 12:16 BMI result Body Mass Index 46.0 Const: Other: No acute distress Resp: Other: Clear to auscultation bilaterally but diminished at bases Cardio: Other: Irregularly irregular rhythm. No S4; positive S1-S2; no S3 murmurs rubs or gallops GI: Other: Obese positive bowel sounds Extrem: Other: Bilateral edema Objective Data Active Medications Albuterol/Ipratropium (Albuterol/Iprat 2.5/0.5mg 3 Ml Ampul.Neb) 3 ml INHALE RQ4H PRN PRN Reason: Shortness of Breath/Wheezing Last Admin: 04/02/23 20:36 Dose: 3 ml Documented By: CRESCENCIO Apixaban (Apixaban 5 Mg Tablet) 5 mg PO BID [facility] Last Admin: 04/03/23 08:00 Dose: 5 mg Documented By: RUBY Benzocaine (Throat Lozenge, Medicated Lozenge) 1 lozenge MUCOUS MEM Q2H PRN PRN Reason: Sore Throat Last Admin: 04/01/23 17:51 Dose: 1 lozenge Documented By: GORAN Digoxin (Digoxin 0.125 Mg Tablet) 0.125 mg PO DAILY [facility] Last Admin: 04/03/23 08:00 Dose: 0.125 mg Documented By: RUBY Diltiazem HCl (Diltiazem Hcl 30 Mg Tablet) 30 mg PO QID [facility]; Protocol Last Admin: 04/03/23 08:00 Dose: 30 mg Documented By: RUBY Gabapentin (Gabapentin 300 Mg Capsule) 300 mg PO TID [facility] Last Admin: 04/03/23 08:00 Dose: 300 mg Documented By: RUBY Guaifenesin (Guaifenesin La 600 Mg Tab.Er.12h) 600 mg PO BID [facility] Last Admin: 04/03/23 08:00 Dose: 600 mg Documented By: RUBY Levofloxacin (Levaquin) 750 mg in 150 mls @ 100 mls/hr IV Q48H [facility] Last Infusion: 04/02/23 16:26 Dose: 0 mls/hr Documented By: GORAN Lidocaine/Diphenhydr/Alum/Mg/Simeth (Mag&Al/Sim/Diphenhyd/Lidocaine 10 Ml Oral.Susp) 10 ml PO Q4H PRN; Protocol PRN Reason: mouth pain Last Admin: 04/01/23 20:59 Dose: 10 ml Documented By: BEE Multi-Ingred Medicated Throat [place] (Throat [place], Medicated 177 Ml Bottle) 1 spray MUCOUS MEM Q2H PRN PRN Reason: Pain, Severe (Pain Scale 7-10) Last Admin: 04/01/23 23:46 Dose: 1 spray Documented By: BEE Oxycodone HCl (Oxycodone Hcl Immed Release 5 Mg Tablet) 10 mg PO Q4H PRN PRN Reason: Pain, Moderate(Pain Scale 4-6) Last Admin: 04/03/23 08:02 Dose: 10 mg Documented By: RUBY Pharmacy Consult (Consult Rx Perform Med Rec) 1 each MISCELLANE ONCE PRN PRN Reason: Consult order Labs 04/03/23 05:41 04/03/23 05:41 Labs: Laboratory Results - last 24 hr 04/03/23 04/03/23 05:41 05:41 MCV 99.4 H MCH 29.1 MCHC 29.3 L RDW 16.0 Plt Count 170 MPV 11.2 Immature Gran % (Auto) 0.6 H Neut % (Auto) 71.8 Lymph % (Auto) 16.7 L [place] % (Auto) 7.9 Eos % (Auto) 2.7 Baso % (Auto) 0.3 Lymph # (Auto) 1.7 [place] # (Auto) 0.8 Eos # (Auto) 0.3 Baso # (Auto) 0.0 Abs Immat Gran (auto) 0.06 H Absolute Neuts (auto) 7.5 Absolute Nucleated RBC 0.000 Nucleated RBC % (auto) 0.0 Anion Gap 14 Estim Creat Clear Calc 48.9 Estimated GFR 42 Fasting Glucose 96 Calcium 10.0 Total Bilirubin 0.4 AST 19 ALT 49 H Alkaline Phosphatase 96 Total Protein 5.8 L Albumin 3.4 L Assessment and Plan (1) Sepsis: Status: Acute (2) Atrial fibrillation with rapid ventricular response: Status: Acute (3) Acute kidney injury: Status: Acute (4) Pneumonia: Status: Acute Plan 72-year-old female with significantly advanced pulmonary parenchymal disease with COPD status post radiation therapy for left upper lobe lung cancer presents to the hospital with altered mental status. In the emergency room found to be hypo by intensive requiring pressor support. She was transferred to the ICU where she ultimately was weaned off of pressors. She transferred to the floor a.m. of 03/31; mid afternoon she developed atrial fibrillation with a rapid ventricular response in the 150s. She was given 1 dose of Lopressor 5 mg IV with good results and p.o. Lopressor was started. Throughout the night she remained in AFib and rate was poorly control. Blood pressures have been maintaining between 90 and 100 systolic 1. Sepsis secondary to pneumonia, sepsis resolved. 2. AFib with rapid ventricular response (did not respond to amiodarone IV load) -off amiodarone -continue Eliquis 5 mg b.i.d. -continue Cardizem 30 mg p.o. q.6 hours--> to long acting cardizem cd 120 -did slowed with 0.25 q.6 hours x3 doses -continue digoxin 0.125 daily in a.m. 3. DANA--resolved. 4. Left lower lobe infiltrate -complete course of Levaquin started on 03/31 -switch to p.o. in a.m. Eliquis DNR DNI Patient will require ongoing hospitalization to complete amiodarone load and complete treatment of left lower lobe infiltrate Time Spent With Patient Time: Total time managing care of this patient today ____ minutes. Quality Stroke Does the patient have a stroke diagnosis?: No VTE Prior VTE?: No VTE Risk Level:: Medical - moderate - high VTE Device Contraindication: Treatment Not Indicated VTE Drug Contraindication: N/A - Med Ordered
--- NOTE | 2023-04-03 11:08 | MHC.CM.PN ---
Patient is not yet medically cleared for dc (IV Levaquin/PNA); home/resume services is the goal and CM will continue to follow.
[2023-04-03] MEDS: dilTIAZem HCL CD 120 MG CAP.ER.DEG PO (11:59)
--- NOTE | 2023-04-03 12:05 | PM.PNNEP ---
Subjective Subjective Date of Service: 04/03/23 Principal diagnosis: Atrial fibrillation Interval history: seen and examined no complaints Physical Exam Vital Signs: Vital Signs: Last Vital Signs Temp 97.7 F 04/03/23 11:07 Pulse 74 04/03/23 11:07 Resp 20 04/03/23 11:07 BP 131/63 04/03/23 11:07 Pulse Ox 93 04/03/23 11:07 O2 Del Method Nasal Cannula 04/03/23 11:07 O2 Flow Rate 4 04/03/23 11:07 Oxygen Flow Rate 3 03/29/23 12:16 BMI result Body Mass Index 46.0 Const: General: alert and awake HEENT: Head: Yes normocephalic and Yes atraumatic Neck: Neck: Yes supple Resp: Auscultation: diminished lung sounds Cardio: Heart sounds: S1 normal heart sound present and S2 normal heart sound present GI: Palpation (GI): Soft to palpation and nontender Extrem: General: Yes pedal edema Objective Data Labs 04/03/23 05:41 04/03/23 05:41 Labs: Laboratory Results - last 24 hr 04/03/23 04/03/23 05:41 05:41 WBC 10.4 RBC 3.47 L Hgb 10.1 L Hct 34.5 L MCV 99.4 H MCH 29.1 MCHC 29.3 L RDW 16.0 Plt Count 170 MPV 11.2 Immature Gran % (Auto) 0.6 H Neut % (Auto) 71.8 Lymph % (Auto) 16.7 L [place] % (Auto) 7.9 Eos % (Auto) 2.7 Baso % (Auto) 0.3 Lymph # (Auto) 1.7 [place] # (Auto) 0.8 Eos # (Auto) 0.3 Baso # (Auto) 0.0 Abs Immat Gran (auto) 0.06 H Absolute Neuts (auto) 7.5 Absolute Nucleated RBC 0.000 Nucleated RBC % (auto) 0.0 Sodium 143 Potassium 5.0 Chloride 106 Carbon Dioxide 28 Anion Gap 14 BUN 32 H Creatinine 1.25 Estim Creat Clear Calc 48.9 Estimated GFR 42 Fasting Glucose 96 Calcium 10.0 Total Bilirubin 0.4 AST 19 ALT 49 H Alkaline Phosphatase 96 Total Protein 5.8 L Albumin 3.4 L Microbiology Microbiology Results: Microbiology 03/29/23 20:48 Sputum - Expectorated Gram Stain - Final 03/29/23 20:48 Sputum - Expectorated Sputum Culture - Final 03/29/23 13:26 Blood - Venous Blood Culture - Preliminary No growth after 48 hours. 03/29/23 13:16 Blood - Venous Blood Culture - Preliminary No growth after 48 hours. 03/30/23 Unknown Urine Catheterized - Ken Catheter Urine Culture - Final Procedures Date of Service Date of Service: 04/03/23 Assessment & Plan Assessment and plan (1) Acute kidney injury: Status: Acute (2) Pneumonia: Status: Acute (3) Metabolic acidosis: Status: Acute Plan Scr better at baseline DANA due to acute tubular injury in the setting of sepsis and peumonia hypotensive earlier no obstruction by CT scan of the abdomen baseline Scr ~ 1.2 mg/dl REC follow kidney function and electrolytes o/p renal f/u Time Spent With Patient Time: Total time managing care of this patient today ____ minutes. Progress Note: Quality Stroke Does the patient have a stroke diagnosis?: No
[2023-04-03] MEDS: Mag&Al/Sim/Diphenhyd/Lidocaine 10 ML ORAL.SUSP PO (14:18)
[2023-04-04 03:29] VITALS: BP 131/67; PULSE 79; RESP 20; TEMP 36.3; O2SAT 94
[2023-04-04 06:00] VITALS: BMI 46.1
[2023-04-04 07:25] VITALS: BP 120/58; PULSE 77; RESP 20; TEMP 36.7; O2SAT 95
[2023-04-04] MEDS: Gabapentin 300 MG CAPSULE PO ×3 (08:30→21:39)
[2023-04-04] MEDS: Apixaban 5 MG TABLET PO ×2 (08:31→21:39)
[2023-04-04] MEDS: guaiFENesin LA 600 MG TAB.ER.12H PO ×2 (08:31→21:39)
[2023-04-04] MEDS: Digoxin 0.125 MG TABLET PO (08:31)
[2023-04-04] MEDS: dilTIAZem HCL CD 120 MG CAP.ER.DEG PO (08:31)
[2023-04-04] MEDS: oxyCODONE HCl Immed Release 5 MG TABLET 10 MG PO ×2 (08:32→21:39)
--- NOTE | 2023-04-04 10:12 | PM.DS ---
DS: Providers Provider Date of Service: 04/05/23 Date of admission: 03/29/23 17:41 Primary care physician: Luigi Hong MD Consults: 04/01/23 07:59 Consult to Cardiology Routine Consulting Provider: [facility] Reason for consultation: Vincent Has provider been notified: No DS: Diagnosis Discharge Diagnosis (1) Acute kidney injury: Status: Acute (2) Pneumonia: Status: Acute (3) Metabolic acidosis: Status: Acute DS: Summary Hospital Course Hospital Course: Admission HPI Chief Complaint: Septic Shock / LLPNA / ADNA HPI: ?72-year-old obese female with underlying history of non O2 dependent COPD in the setting of a 55 pack-year history of tobacco consumption up until a week ago, hypertension, left upper lobe lung cancer status post radiotherapy followed by Dr. Stapleton at [facility] last appointment in September, reports that has a chronic history of shortness of breath for the past 3 years without requirement of oxygen but has gotten worse over the past 1 week with associated weakness and mild sputum production over the last 24 hours.? The patient came to the hospital and was seen in the emergency room where she was transferred via EMS. ? In the ER, the patient's son reported patient has been short of breath for a week requiring new administration of oxygen, she has not had a bowel movement for several days and has not urinated for about 3 days which is concerning to him in addition to fact that she has been taking small sips of water and has not been eating properly.? Patient did admit to shortness of breath as above mention but no fever chills. Her workup in the ER initially reveal significant hypertension with blood pressure of 225/142, satting 91% on 3 L nasal cannula and afebrile, not tachycardic or tachypneic.? She was given 5 mg of labetalol IV and became hypotensive at 86/67, subsequently her workup revealed a white count of 33.9, H&H 12.7 and 40.4 respectively, sodium 1 28, potassium 5.0, chloride 88, carbon dioxide 27, BUN 80, creatinine 5.51 (baseline 1 point 1 8), lactic acid 1.3.? Respiratory panel negative. ?Patient was given total of 4 L of IV fluids, started on vancomycin and Zosyn, given albumin but despite of all this, patient continued to be hypotensive, patient was then started on Levophed but quickly became hypertensive therefore this was discontinued and the patient was then hypotensive again and was transferred to the ICU. ? During my evaluation the patient confirms all the above and reports that that has been a bilateral among providers on whether not she should continue with her water pill, does not report any more swollen than usual, however her shortness of breath has gotten worse over the past week requiring new oxygen administration at 3 L nasal cannula.? She does have a history of cancer and has not seen her oncologist and September of this year, she did not receive chemotherapy or surgery. Admits to not having urinary output for the past 3-4 days although she attributes this to not drinking enough water. ?In regards to her bowel movement, she states that is normal for her not to go for 2-3 days. She was admitted with the following diagnoses 1. Acute septic shock 2. Left lung community-acquired pneumonia 3. Acute COPD exacerbation 4. Acute Hypoxic respiratory failure (multifactorial) consider PE 5. Acute kidney injury (baseline creatinine 1.2) likely prerenal and intrarenal (ATN) in the setting of diuretics and LYLE-inhibitor, poor p.o. intake 6. Hypoalbuminemia 7. Hypo osmolar hypovolemic hyponatremia 8. Urinary retention 9. Hyperphosphatemia due to DANA 10. Underlying history of lung cancer status post radiation therapy 11. Code status DNR DNI 12. Morbid obesity with BMI of 52.4 Hospital course: This patient, with underlying poor lung function due to COPD and prior lung cancer and presented with shortness of breath and was found to be in septic shock due to pneumonia with no response to IVF liters (4 liters) and albumin and therefore was admitted through the ICU where she was treated with a vasopressor, she was also noted to have acute lactic acidosis, hyponatremia, acute renal failure attributed to tubular injury/ATN. Pneumonia was confirmed on CXR and CT of the chest; she had a VQ scan that was nondiagnostic for PE, and DVT studies of lower extremities were negative. Initially treated with Zosyn and Vanco in the ED, later given cefepime and ultimately prescribed Ceftriaxone and Azithrom and only to be ultimately started on Levaquin 750 mg daily by retail agent on 03/31, cultures including blood cultures, have been negative; overall, she improved and will continue to need O2. DANA due to ATN has resolved initial creatine was 2.48 and now 1.25 as of 04/03, hyponatremia resolved, and she is physically deconditioned and weak, Physical therapy has recommended STR for better recovery, which I agree with, but she and her son prefer to go home Atrial Fibrilation --new, was seen by cardiology with recommendation to treat with cardizem and digoxin and anticoguation with eliquis, rate is now controlled. Chronic heart failure with preserved EF (HFpEF) EF 70% as of 03/30 to continue home lasix Urinary retention--patient during hospitalization requested a a palacios cather for ease of voiding and this was removed 2 days later, unfortunately following this she developped urinary retention and palacios catheter needed to be put back , she will need to follow up with Urology on outpatient basis Oral thrush being treated with Nystatin S&S Again patient offered to go to short term rehab for closer monitoring and recovery but prefers home with VNA Time Spent with Patient Time attestation: Total time managing care of this patient today ____ minutes. Discharge coordination time: Greater than 30 minutes Quality: Safe Use of Opioids Does Pt have an Active Cancer Diagnosis on the Problem List?: No Quality: Stroke Does the patient have a stroke diagnosis?: No Physical Exam Vital Signs: Vital Signs: Last Vital Signs Temp 98.1 F 04/04/23 07:25 Pulse 77 04/04/23 07:25 Resp 20 04/04/23 07:25 BP 120/58 L 04/04/23 07:25 Pulse Ox 95 04/04/23 07:25 O2 Del Method Nasal Cannula 04/04/23 07:25 O2 Flow Rate 4 04/04/23 07:25 Oxygen Flow Rate 3 03/29/23 12:16 BMI result Body Mass Index 46.1 Discharge Plan Discharge Anticipated Discharge Date/Time: 04/05/23 08:53 Patient Disposition: Home Health Service Discharge Diagnosis: sepsis pneumonia, Referrals: [facility] [Outside] - 1 Week Luigi Hong MD [Primary Care Provider] - 04/11/23 2:15 pm (Follow up appointment is schedule. If you need to reschedule call office.) Discharge Medications: New Eliquis 5 mg Tablet 5 mg PO BID Qty: 60 0RF diltiazem HCl [Cardizem CD] 120 mg Capsule,Extended Release 24hr 120 mg PO DAILY Qty: 30 0RF Protocol: Hold for SBP/HR < HOLD for SBP < : 90 HOLD for HR < : 60 digoxin 125 mcg (0.125 mg) Tablet 0.125 mg PO DAILY Qty: 3 0RF nystatin 100,000 unit/mL Suspension 400,000 unit PO QID Qty: 300 0RF cefuroxime axetil 500 mg tablet 500 mg PO BID 3 Days Qty: 6 0RF Continued lisinopril 20 mg tablet 20 mg PO DAILY tramadol 50 mg tablet 50 mg PO TID PRN (Reason: Pain) ascorbic acid (vitamin C) [Vitamin C] 500 mg Tablet 500 mg PO DAILY furosemide 80 mg tablet 80 mg PO DAILY acetaminophen [Tylenol] 325 mg Capsule 650 mg PO BEDTIME PRN (Reason: Pain) albuterol sulfate 2.5 mg /3 mL (0.083 %) solution for nebulization 2.5 mg inhalation Q4H PRN (Reason: shortness of breath or wheezing) Qty: 75 0RF pregabalin [Lyrica] 50 mg capsule 100 mg PO BID nicotine (polacrilex) 2 mg gum 2 mg buccal Q2H PRN (Reason: Nicotine Cravings) Discontinued metoprolol succinate 100 mg tablet extended release 24 hr 100 mg PO DAILY Discharge Orders: Discharge Order (Routine); Ordered 04/05/23 Ordered By: Kermit Graham Diet: Advance to usual diet Activity on Discharge: As tolerated Stand Alone Forms: Patient Portal Discharge page Care Plan Goals: full recovery from sepsis and pneumonia Health Concerns: sepsis, pneumonia and decondition Plan of Treatment: Take Ceftin for 3 more to complete treatment of pneumonia Take Cardizem 120 mg daily and digoxin 0.125 mg daily to control heart rate for atrial fibrilation Take Eliquis to thin your blood and prevent stroke from atrial fibrilation Stop taking metoprolol replaced with cardizem and digoxin Assessment: as above
--- NOTE | 2023-04-04 10:12 | PM.PNNEP ---
Subjective Subjective Date of Service: 04/04/23 Principal diagnosis: Atrial fibrillation Interval history: seen and examined no complaints Physical Exam Vital Signs: Vital Signs: Last Vital Signs Temp 98.1 F 04/04/23 07:25 Pulse 77 04/04/23 07:25 Resp 20 04/04/23 07:25 BP 120/58 L 04/04/23 07:25 Pulse Ox 95 04/04/23 07:25 O2 Del Method Nasal Cannula 04/04/23 07:25 O2 Flow Rate 4 04/04/23 07:25 Oxygen Flow Rate 3 03/29/23 12:16 BMI result Body Mass Index 46.1 Comfortable Neck is supple Lung: Air entry equal Heart: S1,S2, normal. No rub Abd: Soft. BS + NS : Alert.No asterexis Const: General: alert and awake HEENT: Head: Yes normocephalic and Yes atraumatic Neck: Neck: Yes supple Resp: Auscultation: diminished lung sounds Cardio: Heart sounds: S1 normal heart sound present and S2 normal heart sound present GI: Palpation (GI): Soft to palpation and nontender Extrem: General: Yes pedal edema Objective Data Labs 04/03/23 05:41 04/03/23 05:41 Microbiology Microbiology Results: Microbiology 03/29/23 13:26 Blood - Venous Blood Culture - Final No growth after 5 days. 03/29/23 13:16 Blood - Venous Blood Culture - Final No growth after 5 days. 03/29/23 20:48 Sputum - Expectorated Gram Stain - Final 03/29/23 20:48 Sputum - Expectorated Sputum Culture - Final 03/30/23 Unknown Urine Catheterized - Ken Catheter Urine Culture - Final Procedures Date of Service Date of Service: 04/04/23 Assessment & Plan Assessment and plan (1) Acute kidney injury: Status: Acute (2) Pneumonia: Status: Acute (3) Metabolic acidosis: Status: Acute Plan DANA due to acute tubular injury in the setting of sepsis and peumonia no obstruction by CT scan of the abdomen baseline Scr ~ 1.2 mg/dl Renal function is improving REC follow kidney function and electrolytes o/p renal f/u Time Spent With Patient Time: Total time managing care of this patient today ____ minutes. Progress Note: Quality Stroke Does the patient have a stroke diagnosis?: No
--- NOTE | 2023-04-04 10:28 | MHC.CM.PN ---
CM met with Patient and her Son at bedside and addressed IMM with them (original has been given to Patient and a copy has been placed on the chart). PT & MD are recommending STR; Patient and her Son report that a hospital bed is being delivered tomorrow, Patient is active with [facility] for home O2 and their goal is for Patient to return home tomorrow after the bed is delivered.ERICKA has relayed this information to MD, who acknowledges Patient's right to choose to go home but he prefers STR as recommended. CM will follow.
--- NOTE | 2023-04-04 10:33 | P.PNIM_ITS ---
Subjective Subjective Date of Service: 04/04/23 Interval History: f/u on pna, afib with rvr--overall is doing better Physical Exam Vital Signs: Vital Signs: Last Vital Signs Temp 98.1 F 04/04/23 07:25 Pulse 77 04/04/23 07:25 Resp 20 04/04/23 07:25 BP 120/58 L 04/04/23 07:25 Pulse Ox 95 04/04/23 07:25 O2 Del Method Nasal Cannula 04/04/23 07:25 O2 Flow Rate 4 04/04/23 07:25 Oxygen Flow Rate 3 03/29/23 12:16 BMI result Body Mass Index 46.1 Objective Data Active Medications Albuterol/Ipratropium (Albuterol/Iprat 2.5/0.5mg 3 Ml Ampul.Neb) 3 ml INHALE RQ4H PRN PRN Reason: Shortness of Breath/Wheezing Last Admin: 04/02/23 20:36 Dose: 3 ml Documented By: CRESCENCIO Apixaban (Apixaban 5 Mg Tablet) 5 mg PO BID [facility] Last Admin: 04/04/23 08:31 Dose: 5 mg Documented By: CHARLENE Benzocaine (Throat Lozenge, Medicated Lozenge) 1 lozenge MUCOUS MEM Q2H PRN PRN Reason: Sore Throat Last Admin: 04/01/23 17:51 Dose: 1 lozenge Documented By: GORAN Digoxin (Digoxin 0.125 Mg Tablet) 0.125 mg PO DAILY [facility] Last Admin: 04/04/23 08:31 Dose: 0.125 mg Documented By: CHARLENE Diltiazem HCl (Diltiazem Hcl Cd 120 Mg Cap.Er.Deg) 120 mg PO DAILY [facility]; Protocol Last Admin: 04/04/23 08:31 Dose: 120 mg Documented By: CHARLENE Gabapentin (Gabapentin 300 Mg Capsule) 300 mg PO TID [facility] Last Admin: 04/04/23 08:30 Dose: 300 mg Documented By: CHARLENE Guaifenesin (Guaifenesin La 600 Mg Tab.Er.12h) 600 mg PO BID [facility] Last Admin: 04/04/23 08:31 Dose: 600 mg Documented By: CHARLENE Levofloxacin (Levaquin) 750 mg in 150 mls @ 100 mls/hr IV Q48H LE Last Infusion: 04/02/23 16:26 Dose: 0 mls/hr Documented By: GORAN Lidocaine/Diphenhydr/Alum/Mg/Simeth (Mag&Al/Sim/Diphenhyd/Lidocaine 10 Ml Oral.Susp) 10 ml PO Q4H PRN; Protocol PRN Reason: mouth pain Last Admin: 04/03/23 14:18 Dose: 10 ml Documented By: RUBY Multi-Ingred Medicated Throat [place]um Bridge (Throat Alum Bridge, Medicated 177 Ml Bottle) 1 spray MUCOUS MEM Q2H PRN PRN Reason: Pain, Severe (Pain Scale 7-10) Last Admin: 04/01/23 23:46 Dose: 1 spray Documented By: BEE Oxycodone HCl (Oxycodone Hcl Immed Release 5 Mg Tablet) 10 mg PO Q4H PRN PRN Reason: Pain, Moderate(Pain Scale 4-6) Last Admin: 04/04/23 08:32 Dose: 10 mg Documented By: CHARLENE Pharmacy Consult (Consult Rx Perform Med Rec) 1 each MISCELLANE ONCE PRN PRN Reason: Consult order Labs 04/03/23 05:41 04/03/23 05:41 Microbiology Microbiology Results: Microbiology 03/29/23 13:26 Blood Culture - Final Blood - Venous No growth after 5 days. 03/29/23 13:16 Blood Culture - Final Blood - Venous No growth after 5 days. Assessment and Plan (1) Sepsis: Status: Acute (2) Atrial fibrillation with rapid ventricular response: Status: Acute (3) Acute kidney injury: Status: Acute (4) Pneumonia: Status: Acute Plan 72-year-old female with significantly advanced pulmonary parenchymal disease with COPD status post radiation therapy for left upper lobe lung cancer presents to the hospital with altered mental status. In the emergency room found to be hypo by intensive requiring pressor support. She was transferred to the ICU where she ultimately was weaned off of pressors. She transferred to the floor a.m. of 03/31; mid afternoon she developed atrial fibrillation with a rapid ventricular response in the 150s. She was given 1 dose of Lopressor 5 mg IV with good results and p.o. Lopressor was started. Throughout the night she remained in AFib and rate was poorly control. Blood pressures have been martine ntaining between 90 and 100 systolic 1. Sepsis secondary to pneumonia, sepsis resolved. continue levaquin for pneumonia for total of 10 days of Abx which started on 03/29 and ends on 04/07 2. AFib with rapid ventricular response (did not respond to amiodarone IV load) -off amiodarone -continue Eliquis 5 mg b.i.d. -continue cardizem -continue digoxin 0.125 daily in a.m. 3. DANA--resolved. 4. Left lower lobe infiltrate -complete course of Levaquin started on 03/31 -switch to p.o. in a.m. Eliquis DNR DNI Patient will require ongoing hospitalization to complete amiodarone load and complete treatment of left lower lobe infiltrate possible dc home today with vna Time Spent With Patient Time: Total time managing care of this patient today ____ minutes. Quality Stroke Does the patient have a stroke diagnosis?: No VTE Prior VTE?: No VTE Risk Level:: Medical - moderate - high VTE Device Contraindication: Treatment Not Indicated VTE Drug Contraindication: N/A - Med Ordered
[2023-04-04 11:13] VITALS: BP 125/57; PULSE 77; RESP 20; TEMP 36.5; O2SAT 94
[2023-04-04] MEDS: levoFLOXacin/D5W 750 MG/150 ML PIGGYBACK 100 MG IV (11:31)
[2023-04-04 15:29] VITALS: BP 127/60; PULSE 82; RESP 18; TEMP 36.3; O2SAT 92
[2023-04-04] MEDS: Nystatin Oral Susp 500,000 UNIT/5 ML ORAL.SUSP 400000 UNIT PO ×2 (15:49→21:39)
[2023-04-04 19:13] VITALS: BP 126/61; PULSE 78; RESP 18; TEMP 36.3; O2SAT 96
[2023-04-04 23:53] VITALS: BP 121/59; PULSE 89; RESP 20; TEMP 37.2; O2SAT 92
--- NOTE | 2023-04-05 03:10 | PC.NURSE ---
Patient's palacios cath was reportedly D/C'd 1800 on 04/04. Purewick in place on assuming care @ 1900 as pt becomes SOB on exertion, +generalized weakness noted. Pt was educated on spontaneous void trial and was provided additional time to try to void per request on midnight assessment. At 0200 pt was noted to have voided ~150ml in purewick canister. Post-void bladder scan was obtained showing 346ml. Covering Dr. Lunsford notified, straight cathed per MD written order performed for 400ml odorless concentrated cyu. Purewick replaced and plan of care discussed with pt. Next bladder scan due 0900.
[2023-04-05 03:15] VITALS: BP 120/56; PULSE 77; RESP 22; TEMP 37; O2SAT 93
[2023-04-05 06:00] VITALS: BMI 45.9
[2023-04-05 07:49] VITALS: BP 127/66; PULSE 97; RESP 20; TEMP 36.4; O2SAT 92
[2023-04-05] MEDS: dilTIAZem HCL CD 120 MG CAP.ER.DEG PO (09:55)
[2023-04-05] MEDS: guaiFENesin LA 600 MG TAB.ER.12H PO (09:55)
[2023-04-05] MEDS: Apixaban 5 MG TABLET PO (09:55)
[2023-04-05] MEDS: Digoxin 0.125 MG TABLET PO (09:55)
[2023-04-05] MEDS: Gabapentin 300 MG CAPSULE PO ×2 (09:56→14:57)
[2023-04-05] MEDS: Nystatin Oral Susp 500,000 UNIT/5 ML ORAL.SUSP 400000 UNIT PO ×2 (09:57→14:58)
[2023-04-05] MEDS: oxyCODONE HCl Immed Release 5 MG TABLET 10 MG PO ×2 (10:03→15:11)
[2023-04-05 11:56] VITALS: BP 120/60; PULSE 83; RESP 20; TEMP 36.8; O2SAT 94
--- NOTE | 2023-04-05 12:03 | MHC.CM.PN ---
Patient will dc to home today with resuming [facility] and resuming [facility] for home O2 at 4:30 PM, via [facility]. MD & RN are aware. Last IMM addressed yesterday. [facility] has been made aware of today's dc.ERICKA spoke with Son/HCP/[place] at listed # and he is aware of and in agreement with the dc plan, as is the Patient.
[2023-04-05 15:28] VITALS: BP 125/61; PULSE 73; RESP 18; TEMP 36.4; O2SAT 95
[2023-04-05] MEDS: diphenhydrAMINE HCL 25 MG CAPSULE PO (15:51)
== END 2023-04-05 16:30 | disposition home health service (06) | DRG 871 ==
LOC: HO.ED 16:55 → HO.EDOVER 17:45 → HO.ICU 17:49 → HO.IMC 03-31 15:59
PROVIDERS: Hospitalist; Physician Assistant Medical; Registered Nurse Emergency; Admitting Provider Internal Medicine Pulmonary Disease; Emergency Provider Emergency Medicine; PCP Internal Medicine; Visit Provider Internal Medicine
DX: A41.9 Sepsis, unspecified organism (principal); J18.9 Pneumonia, unspecified organism; N17.0 Acute kidney failure with tubular necrosis; R65.21 Severe sepsis with septic shock; E87.1 Hypo-osmolality and hyponatremia; Z68.43 Body mass index [BMI] 50.0-59.9, adult; I13.0 Hypertensive heart and chronic kidney disease with heart failure and stage 1 through stage 4 chronic kidney disease, or unspecified chronic kidney disease; I50.32 Chronic diastolic (congestive) heart failure; B37.0 Candidal stomatitis; J44.1 Chronic obstructive pulmonary disease with (acute) exacerbation; J44.0 Chronic obstructive pulmonary disease with (acute) lower respiratory infection; Z66 Do not resuscitate; E88.09 Other disorders of plasma-protein metabolism, not elsewhere classified; E86.1 Hypovolemia; R33.9 Retention of urine, unspecified; R31.29 Other microscopic hematuria; K59.00 Constipation, unspecified; I48.91 Unspecified atrial fibrillation; E66.01 Morbid (severe) obesity due to excess calories; N18.30 Chronic kidney disease, stage 3 unspecified; F17.210 Nicotine dependence, cigarettes, uncomplicated; Z71.6 Tobacco abuse counseling; Z20.822 Contact with and (suspected) exposure to COVID-19; Z85.118 Personal history of other malignant neoplasm of bronchus and lung; Z92.3 Personal history of irradiation; Z88.0 Allergy status to penicillin; Z79.52 Long term (current) use of systemic steroids; Z79.899 Other long term (current) drug therapy
CPT/HCPCS: 36415; 71045; 71250; 74176; 78580; 80048; 80053; 81001; 82040; 82550; 82803; 83605; 83735; 83880; 84100; 84484; 85025; 85610; 85730; 87040; 87070; 87086; 87205; 87502; 87635; 93005; 93306; 93971; 94640; 97162; 99285; A9540; C1758; J0282; J0283; J0456; J0692; J0696; J1160; J1170; J1643; J1956; J2270; J2543; J2930; J3370; P9047

== ENCOUNTER → 2023-03-29 12:03 | Outpatient (BNV) | payer MEDICARE, OTHER, SELFPAY | PROVIDERS: Emergency Provider Emergency Medicine; PCP Internal Medicine; Visit Provider Internal Medicine Cardiovascular Disease | DX: I10 Essential (primary) hypertension (principal) | CPT/HCPCS: 93010 ==

== ENCOUNTER 2023-03-29 17:41 | Outpatient (BNV) | payer MEDICARE, OTHER, SELFPAY | END 2023-03-31 20:43 | PROVIDERS: Admitting Provider Internal Medicine Pulmonary Disease; Emergency Provider Emergency Medicine; PCP Internal Medicine; Visit Provider Internal Medicine | DX: I48.91 Unspecified atrial fibrillation (principal); R94.31 Abnormal electrocardiogram [ECG] [EKG] | CPT/HCPCS: 93010 ==

== ENCOUNTER 2023-03-29 17:41 | Outpatient (BNV) | payer MEDICARE, OTHER, SELFPAY | END 2023-03-30 07:00 | PROVIDERS: Admitting Provider Internal Medicine Pulmonary Disease; Emergency Provider Emergency Medicine; PCP Internal Medicine; Visit Provider Internal Medicine Cardiovascular Disease | DX: I51.9 Heart disease, unspecified (principal); R00.0 Tachycardia, unspecified | CPT/HCPCS: 93306 ==

== ENCOUNTER → 2023-03-29 17:41 | Outpatient (BNV) | payer MEDICARE, OTHER, SELFPAY | PROVIDERS: Admitting Provider Internal Medicine Pulmonary Disease; Emergency Provider Emergency Medicine; PCP Internal Medicine; Visit Provider Internal Medicine Cardiovascular Disease | DX: I48.91 Unspecified atrial fibrillation (principal) | CPT/HCPCS: 99232 ==

== ENCOUNTER → 2023-03-29 17:41 | Outpatient (BNV) | payer MEDICARE, OTHER, SELFPAY | PROVIDERS: Admitting Provider Internal Medicine Pulmonary Disease; Emergency Provider Emergency Medicine; PCP Internal Medicine; Visit Provider Hospitalist | DX: N17.9 Acute kidney failure, unspecified (principal); J18.9 Pneumonia, unspecified organism; E87.20 Acidosis, unspecified | CPT/HCPCS: 99232; 99233; 99239; 99499 ==

== ENCOUNTER → 2023-03-29 17:41 | Outpatient (BNV) | payer MEDICARE, OTHER, SELFPAY | PROVIDERS: Admitting Provider Internal Medicine Pulmonary Disease; Emergency Provider Emergency Medicine; PCP Internal Medicine; Visit Provider Physician Assistant Medical | DX: J96.00 Acute respiratory failure, unspecified whether with hypoxia or hypercapnia (principal); A41.9 Sepsis, unspecified organism; N17.9 Acute kidney failure, unspecified; J18.9 Pneumonia, unspecified organism | CPT/HCPCS: 36556; 99291; 99292 ==

== ENCOUNTER → 2023-03-29 17:41 | Outpatient (BNV) | payer MEDICARE, OTHER, SELFPAY | PROVIDERS: Admitting Provider Internal Medicine Pulmonary Disease; Emergency Provider Emergency Medicine; PCP Internal Medicine; Visit Provider Internal Medicine Pulmonary Disease | DX: J96.00 Acute respiratory failure, unspecified whether with hypoxia or hypercapnia (principal); T17.900A Unspecified foreign body in respiratory tract, part unspecified causing asphyxiation, initial encounter; E86.1 Hypovolemia; N17.9 Acute kidney failure, unspecified; K59.00 Constipation, unspecified; E66.01 Morbid (severe) obesity due to excess calories | CPT/HCPCS: 99232; 99291 ==

== ENCOUNTER 2023-04-07 17:00 | Inpatient (IN) | payer MEDICARE, OTHER, SELFPAY ==
--- NOTE | ~2023-04-07 | XR_ITS ---
EXAMINATION: XR CHEST CLINICAL INFORMATION: Shortness of breath. COMPARISON: CT chest 03/29/2023. Chest radiograph 03/29/2023. TECHNIQUE: Frontal view of the chest was obtained. FINDINGS: Unchanged prominence of the cardiomediastinal silhouette. Overall similar degree of diffuse interstitial coarsening. Retrocardiac/left lower lobe airspace opacities are decreased. No new focal airspace opacity. No significant pleural effusion or pneumothorax. No acute osseous abnormalities. Stable mild asymmetric elevation of the left hemidiaphragm. XR/XR chest 1V IMPRESSION: 1. Improved pulmonary aeration in the retrocardiac/left lower lobe. 2. No new focal airspace opacity.
--- NOTE | 2023-04-07 17:11 | ECG_ITS ---
Test Reason : CP, SOB Blood Pressure : / mmHG Vent. Rate : 082 BPM Atrial Rate : 082 BPM P-R Int : 150 ms QRS Dur : 080 ms QT Int : 372 ms P-R-T Axes : 000 -34 031 degrees QTc Int : 434 ms Normal sinus rhythm Left axis deviation Low voltage QRS Cannot rule out Anterior infarct (cited on or before 29-MAR-2023) Abnormal ECG When compared with ECG of 31-MAR-2023 20:43, Sinus rhythm has replaced Atrial fibrillation Referred By: Ewa Art Electronically Signed By:DUNG GRAHAM
[2023-04-07 17:14] VITALS: BP 105/49; BP 142/60; PULSE 83; PULSE 93; RESP 22; TEMP 36.8; O2SAT 94; O2SAT 95; BMI 46.9
--- NOTE | 2023-04-07 17:18 | ED.GENADULT ---
HPI - General Adult General Chief complaint: Dyspnea Stated complaint: Difficulty Breathing Time Seen by Provider: 04/07/23 18:38 Source: patient and EMS Limitations: no limitations History of Present Illness HPI narrative: This is a 72-year-old female history of atrial fibrillation on Eliquis, COPD, AKA, arthritis presenting to the emergency department for evaluation of productive cough, fatigue, malaise, shortness of breath, patient reports she was recently placed on nasal cannula at home usually uses 3 L however and now is requiring 5 L. Patient reports that she is having 80 cough productive of thick yellow sputum. She tells me she usually has a productive cough however this seems different due to quantity of sputum. Patient reports fatigue, malaise. Denies fevers, chills, chest pain, nausea, vomiting, abdominal pain, headache, vision changes, dizziness and weakness Related Data Home Medications Medication Instructions Recorded Confirmed furosemide 80 mg tablet 80 mg PO DAILY 03/15/23 04/07/23 lisinopril 20 mg tablet 20 mg PO DAILY 03/15/23 04/07/23 tramadol 50 mg tablet 50 mg PO TID PRN Pain 03/15/23 04/07/23 multivitamin 1 tab PO DAILY 04/07/23 04/07/23 Previous Rx's Medication Instructions Recorded apixaban 5 mg tablet (Eliquis) 5 mg PO BID #60 tabs 04/05/23 cefuroxime axetil 500 mg tablet 500 mg PO BID 3 days #6 tabs 04/05/23 digoxin 125 mcg (0.125 mg) tablet 0.125 mg PO DAILY #3 tabs 04/05/23 diltiazem HCl 120 mg 120 mg PO DAILY #30 caps 04/05/23 capsule,extended release 24 hr (Cardizem CD) nystatin 100,000 unit/mL oral 400,000 unit (4 mL) PO QID #300 mL 04/05/23 suspension Allergies Allergy/AdvReac Type Severity Reaction Status Date / Time Penicillin Allergy Unknown rash Uncoded 03/15/23 16:50 Review of Systems Review of Systems: Constitutional : No Weight loss, No Fever, No Chills, + Fatigue, + Malaise ENT/Mouth : No sore throat, No Rhinorrhea Eyes: No Eye Pain, No Swelling, No Redness Cardiovascular : No Chest Pain, + SOB, No Dyspnea on Exertion, No Orthopnea, No Edema, No Palpitations Respiratory : + Cough, + Sputum, No Wheezing Gastrointestinal : No Nausea, No Vomiting, No Diarrhea, No Constipation, No abdominal Pain, No Hematochezia, No Melena Genitourinary : No Dysuria, No Urinary Frequency, No Hematuria, Musculoskeletal : No joint pain, No Myalgias, No Joint Swelling Skin : No Skin Lesions, No rash Neuro : No Weakness, No Numbness, No Dizziness, No Headache Psych : No Anxiety/Panic, No Depression All other systems reviewed and are negative Yes all other systems are reviewed and are negative [facility] Past Medical History Attestation statement: The following information was validated with the patient. Source: old records reviewed and nursing notes reviewed Medical History Carpal tunnel syndrome, left COPD (chronic obstructive pulmonary disease) High blood pressure Lung cancer Nerve pain Pneumonia Surgical History H/O: hysterectomy Social History Social History Household Members: Spouse Housing: [facility] Do you presently have visiting nurse or other home services: Yes ([facility]) Alcohol intake: never Patient Tobacco Use Status: Former Tobacco user Tobacco use type: Cigarette Cigarette Packs Per Day: 1 Cigarettes Per Day: 20.0 Smoked in Last 30 Days: No e-Cigarette/Vaping Use: Never Used Second Hand Smoke Exposure: No Use of substances other than those prescribed or required for medical reasons: No Advance Directives: Yes Advance Directives on File: Yes Advance Directives Date on File: 03/23/23 service: No Current occupational status: retired Current occupation: left handed Physical Exam ED Vital Signs: Vital Signs - 24 hr 04/07/23 17:14 04/07/23 19:45 04/07/23 19:59 Temperature 98.3 F 98.4 F Pulse Rate 83 85 94 Respiratory Rate 22 H 18 18 Blood Pressure 142/60 H 121/41 L Pulse Oximetry 95 93 Oxygen Delivery Method Nasal Cannula Nasal Cannula Oxygen Flow Rate 4 BMI result Body Mass Index 46.9 vss Appearance: Alert.? Oriented X3.? No acute distress.? Head: Normocephalic, atraumatic, no step-offs or deformities Eyes: Pupils equal, round and reactive to light.? ENT: Pharynx normal.? Neck: Normal inspection.? Neck supple.? CVS: Normal heart rate and rhythm.? Pulses normal.? Respiratory: No respiratory distress.? Breath sounds significant for expiratory crackles in bilateral lower lobe.? Abdomen: Soft and nontender.? Skin: Skin warm and dry.? Normal skin color.? Normal skin turgor.? Extremities: No lower extremity edema.? No calf ttp. 5/5 strength to bilateral upper and lower extremities Back: No midline tenderness, no C-spine tenderness, full range of motion, no CVA tenderness bilaterally Neuro: Oriented X 3.? No motor deficit.? No sensory deficit. CN 2-12 intact Course Reevaluation(s) Reevaluation #1: Patient's CBC with leukocytosis 13.5, and a baseline normocytic anemia is noted. Chemistry with elevated carbon dioxide 32, patient's troponin 23.0, EKG nonischemic, will obtain 2nd troponin at the 3 hour clif. BNP slightly higher than usual 170. Also low magnesium 1.5. Magnesium will be ordered as well as antibiotics, concerns for possible COPD exacerbation versus bronchitis at this time infection suspected. Normal lactic acid. UA without infection. Chest x-ray pending. Time: 17:15 Reevaluation #2: x-ray with improved pulmonary aeration in the retrocardiac/left lower lobe. No focal airspace opacities. Patient requiring increased oxygen demand despite DuoNeb, magnesium. Plan hospital admission. Time: 20:26 Medications Administered Generic Name Dose Route Start Last Admin Trade Name Freq PRN Reason Stop Dose Admin Albuterol/Ipratropium 3 ml 04/07/23 20:00 04/07/23 20:03 Albuterol/Iprat 2.5/0.5mg 3 Ml Ampul.Neb INHALE 3 ml RQ4H WHILE AWAKE LE Administration Magnesium Sulfate/Dextrose 1 gm in 100 mls @ 100 mls/hr 04/07/23 20:08 04/07/23 20:20 Magnesium Sulfate/D5w IV 04/07/23 21:07 100 mls/hr ONCE ONE Administration Discontinued Medications Generic Name Dose Route Start Last Admin Trade Name Freq PRN Reason Stop Dose Admin Al Hydroxide/Mg Hydroxide 15 ml 04/07/23 19:34 04/07/23 19:42 Magnesium Hydrox/Alum Hydrox 30 Ml Oral.Susp PO 04/07/23 19:35 15 ml ONCE ONE Administration Albuterol/Ipratropium 3 ml 04/07/23 18:35 04/07/23 19:58 Albuterol/Iprat 2.5/0.5mg 3 Ml Ampul.Neb INHALE 04/07/23 18:36 3 ml ONCE ONE Administration Ceftriaxone Sodium 1 gm/ 50 mls @ 100 mls/hr 04/07/23 17:15 04/07/23 19:00 Sodium Chloride IV 04/07/23 17:44 Infused ONCE ONE Infusion Magnesium Sulfate/Dextrose 1 gm in 100 mls @ 100 mls/hr 04/07/23 18:35 04/07/23 19:24 Magnesium Sulfate/D5w IV 04/07/23 19:34 100 mls/hr ONCE ONE Administration Medical Decision Making Medical Decision Making [facility] Narrative: 1725 72-year-old female presents with shortness of breath, fatigue, malaise, productive cough. Physical exam significant for expiratory crackles to bilateral lower lobes. Concerns for bronchitis versus pneumonia. Unlikely PE patient on anticoagulation and med compliant. Unlikely ACS no chest pain. Other differentials include chronic lung disease. No signs of dissection, pneumothorax Plan at this time labs, imaging. Differential Diagnosis Differential Diagnoses: The differential diagnosis associated with the presentation includes Concerns for bronchitis versus pneumonia. Unlikely PE patient on anticoagulation and med compliant. Unlikely ACS no chest pain. Other differentials include chronic lung disease. No signs of dissection, pneumothorax Admission/Observation Consideration of admission/observation: Escalation of care including admission/observation considered Possible admission Lab Data [facility] Lab Attestation statement: I reviewed the patient's lab results. 04/07/23 17:33 04/07/23 17:34 Labs: Lab Results 04/07/23 04/07/23 04/07/23 Range/Units 17:32 17:33 17:33 WBC 13.5 H (4.8-10.8) X10*3/uL RBC 3.74 L (4.20-5.50) X10*6/uL Hgb 11.0 L (12.0-16.0) g/dl Hct 35.5 L (37.0-47.0) % MCV 94.9 (80.0-98.0) fL MCH 29.4 (27.0-33.0) pg MCHC 31.0 (31.0-35.0) g/dl RDW 15.3 (11.0-16.0) % Plt Count 210 (160-400) X10*3/uL MPV 9.6 (9.4-12.3) fL Immature Gran % (Auto) 0.6 H (0.0-0.4) % Neut % (Auto) 80.5 H (45-73) % Lymph % (Auto) 9.8 L (20-40) % Kleberg % (Auto) 6.9 (2-11) % Eos % (Auto) 1.8 (0-4) % Baso % (Auto) 0.4 (0-2) % Lymph # (Auto) 1.3 (1.2-4.9) X10*3/uL Kleberg # (Auto) 0.9 (0.1-1.2) X10*3/uL Eos # (Auto) 0.2 (0.0-0.4) X10*3/uL Baso # (Auto) 0.1 (0.0-0.2) X10*3/uL Abs Immat Gran (auto) 0.08 H (0.00-0.03) X10*3/uL Absolute Neuts (auto) 10.9 H (2.0-8.3) x10*3/uL Absolute Nucleated RBC 0.000 (0.0-0.012) X10*3/uL Nucleated RBC % (auto) 0.0 (0.0-0.2) /100WBC Sodium (135-145) mmol/L Potassium (3.3-5.1) mmol/L Chloride (96-108) mmol/L Carbon Dioxide (22-29) mmol/L Anion Gap (12-20) BUN (9-16) mg/dL Creatinine (0.5-1.4) mg/dL Estim Creat Clear Calc Estimated GFR Random Glucose (60-115) mg/dL Lactic Acid 1.3 (0.5-2.0) mmol/L Calcium (8.4-10.2) mg/dL Magnesium (1.6-2.6) mg/dL Total Bilirubin (0.0-1.0) mg/dL AST (5-31) U/L ALT (0-31) U/L Alkaline Phosphatase (39-117) U/L Troponin I High Sens (<3.5-17.0) ng/L B-Natriuretic Peptide (<100) pg/mL Total Protein (6.5-8.0) g/dL Albumin (3.5-5.0) g/dL Urine Color Yellow Urine Appearance Clear Urine pH 5.0 (5.0-9.0) Ur Specific [place] 1.010 (1.005-1.025) Urine Protein Negative (Neg-Trace) mg/dL Urine Glucose (UA) Negative (Negative) mg/dL Urine Ketones Negative (Negative) mg/dL Urine Blood Moderate (2+) H (Negative) Urine Nitrite Negative (Negative) Ur Leukocyte Esterase Trace H (Negative) Urine RBC >20 H (0-2) /HPF Urine WBC 0-5 (0-5) /HPF Ur Squamous Epith Cells 0-2 (0-2) /HPF Urine Bacteria None Seen (None Seen) Hyaline Casts 0-2 (0-2) /LPF Urine Yeast Present COVID-19 ([facility]) (Negative) COVID-19 Clin Com 04/07/23 04/07/23 04/07/23 Range/Units 17:34 17:34 17:34 WBC (4.8-10.8) X10*3/uL RBC (4.20-5.50) X10*6/uL Hgb (12.0-16.0) g/dl Hct (37.0-47.0) % MCV (80.0-98.0) fL MCH (27.0-33.0) pg MCHC (31.0-35.0) g/dl RDW (11.0-16.0) % Plt Count (160-400) X10*3/uL MPV (9.4-12.3) fL Immature Gran % (Auto) (0.0-0.4) % Neut % (Auto) (45-73) % Lymph % (Auto) (20-40) % Kleberg % (Auto) (2-11) % Eos % (Auto) (0-4) % Baso % (Auto) (0-2) % Lymph # (Auto) (1.2-4.9) X10*3/uL Kleberg # (Auto) (0.1-1.2) X10*3/uL Eos # (Auto) (0.0-0.4) X10*3/uL Baso # (Auto) (0.0-0.2) X10*3/uL Abs Immat Gran (auto) (0.00-0.03) X10*3/uL Absolute Neuts (auto) (2.0-8.3) x10*3/uL Absolute Nucleated RBC (0.0-0.012) X10*3/uL Nucleated RBC % (auto) (0.0-0.2) /100WBC Sodium 142 (135-145) mmol/L Potassium 4.6 (3.3-5.1) mmol/L Chloride 95 L (96-108) mmol/L Carbon Dioxide 32 H (22-29) mmol/L Anion Gap 20 (12-20) BUN 15 (9-16) mg/dL Creatinine 1.16 (0.5-1.4) mg/dL Estim Creat Clear Calc 53.4 Estimated GFR 46 Random Glucose 118 H (60-115) mg/dL Lactic Acid (0.5-2.0) mmol/L Calcium 10.2 (8.4-10.2) mg/dL Magnesium 1.5 L (1.6-2.6) mg/dL Total Bilirubin 0.4 (0.0-1.0) mg/dL AST 33 H (5-31) U/L ALT 44 H (0-31) U/L Alkaline Phosphatase 99 (39-117) U/L Troponin I High Sens 23.0 H D (<3.5-17.0) ng/L B-Natriuretic Peptide 170 H (<100) pg/mL Total Protein 6.3 L (6.5-8.0) g/dL Albumin 3.5 (3.5-5.0) g/dL Urine Color Urine Appearance Urine pH (5.0-9.0) Ur Specific [place] (1.005-1.025) Urine Protein (Neg-Trace) mg/dL Urine Glucose (UA) (Negative) mg/dL Urine Ketones (Negative) mg/dL Urine Blood (Negative) Urine Nitrite (Negative) Ur Leukocyte Esterase (Negative) Urine RBC (0-2) /HPF Urine WBC (0-5) /HPF Ur Squamous Epith Cells (0-2) /HPF Urine Bacteria (None Seen) Hyaline Casts (0-2) /LPF Urine Yeast COVID-19 ([facility]) (Negative) COVID-19 Clin Com 04/07/23 Range/Units 17:52 WBC (4.8-10.8) X10*3/uL RBC (4.20-5.50) X10*6/uL Hgb (12.0-16.0) g/dl Hct (37.0-47.0) % MCV (80.0-98.0) fL MCH (27.0-33.0) pg MCHC (31.0-35.0) g/dl RDW (11.0-16.0) % Plt Count (160-400) X10*3/uL MPV (9.4-12.3) fL Immature Gran % (Auto) (0.0-0.4) % Neut % (Auto) (45-73) % Lymph % (Auto) (20-40) % Kleberg % (Auto) (2-11) % Eos % (Auto) (0-4) % Baso % (Auto) (0-2) % Lymph # (Auto) (1.2-4.9) X10*3/uL [place] # (Auto) (0.1-1.2) X10*3/uL Eos # (Auto) (0.0-0.4) X10*3/uL Baso # (Auto) (0.0-0.2) X10*3/uL Abs Immat Gran (auto) (0.00-0.03) X10*3/uL Absolute Neuts (auto) (2.0-8.3) x10*3/uL Absolute Nucleated RBC (0.0-0.012) X10*3/uL Nucleated RBC % (auto) (0.0-0.2) /100WBC Sodium (135-145) mmol/L Potassium (3.3-5.1) mmol/L Chloride (96-108) mmol/L Carbon Dioxide (22-29) mmol/L Anion Gap (12-20) BUN (9-16) mg/dL Creatinine (0.5-1.4) mg/dL Estim Creat Clear Calc Estimated GFR Random Glucose (60-115) mg/dL Lactic Acid (0.5-2.0) mmol/L Calcium (8.4-10.2) mg/dL Magnesium (1.6-2.6) mg/dL Total Bilirubin (0.0-1.0) mg/dL AST (5-31) U/L ALT (0-31) U/L Alkaline Phosphatase (39-117) U/L Troponin I High Sens (<3.5-17.0) ng/L B-Natriuretic Peptide (<100) pg/mL Total Protein (6.5-8.0) g/dL Albumin (3.5-5.0) g/dL Urine Color Urine Appearance Urine pH (5.0-9.0) Ur Specific [place] (1.005-1.025) Urine Protein (Neg-Trace) mg/dL Urine Glucose (UA) (Negative) mg/dL Urine Ketones (Negative) mg/dL Urine Blood (Negative) Urine Nitrite (Negative) Ur Leukocyte Esterase (Negative) Urine RBC (0-2) /HPF Urine WBC (0-5) /HPF Ur Squamous Epith Cells (0-2) /HPF Urine Bacteria (None Seen) Hyaline Casts (0-2) /LPF Urine Yeast COVID-19 ([facility]) Negative (Negative) COVID-19 Clin Com See Note Independent Interpretation I performed an independent interpretation of an: Plain X-Ray Radiology Impression Discussion of test interpretation with radiology: I have reviewed the radiologist's reading. Core Measures AMI core measures followed: Yes Measure exclusions: not indicated Critical Care Time Critical Care Time Critical Care Time: Yes Total Critical Care Time: 35 Attestation: I attest to this time spent taking care of the patient, obtaining history, physical, reviewing labs, imaging, speaking to my attending Discharge Plan Discharge Clinical Impression: COPD with acute exacerbation Patient Disposition: Admitted As Inpatient
[2023-04-07 17:46] LABS: MANUAL DIFF FLAG NO
[2023-04-07 17:50] LABS: Basophils Absolute Auto 0.1 X10*3/uL (0.0-0.2); Basophils Percent Auto 0.4 % (0-2); Eosinophils Absolute Auto 0.2 X10*3/uL (0.0-0.4); Eosinophils Percent Auto 1.8 % (0-4); Hematocrit 35.5 % (37.0-47.0); Imm Gran Abs Auto 0.08 X10*3/uL (0.00-0.03); Imm Gran Pct Auto 0.6 % (0.0-0.4); Lymphocytes Absolute Auto 1.3 X10*3/uL (1.2-4.9); Lymphocytes Percent Auto 9.8 % (20-40); Mean Corpuscular Hemoglobin 29.4 pg (27.0-33.0); Mean Corpuscular Volume 94.9 fL (80.0-98.0); Mean Platelet Volume 9.6 fL (9.4-12.3); Monocytes Absolute Auto 0.9 X10*3/uL (0.1-1.2); Monocytes Percent Auto 6.9 % (2-11); Neutrophils Absolute Auto 10.9 x10*3/uL (2.0-8.3); Neutrophils Percent Auto 80.5 % (45-73); Platelet Count 210 X10*3/uL (160-400); Red Blood Count 3.74 X10*6/uL (4.20-5.50); Red Cell Distribution Width 15.3 % (11.0-16.0); White Blood Count 13.5 X10*3/uL (4.8-10.8)
--- NOTE | 2023-04-07 17:54 | PC.NURSE ---
pt axox4, vss, respirations even and unlabored, sats 95% on 4L NC, nsr on monitor 84 bpm, skin wpd, +1 pitting edema BLE, +pedal pulses, cap refill <3 secs. pt arrived via ems d/t increased sob, palpitations, lethargy, and chest pain on inspiration. pt states was just discharged from here 3 days ago after a 3 week stay with pneumonia. pt has new palacios in place from hospital stay; draining urine. lung sounds slightly diminished; pleural rub noted bilaterally. labs drawn, ekg obtained, iv access placed by ems patent. all needs met at this time. call matthews within reach.
[2023-04-07 17:59] LABS: Appearance Urine Clear; Color Urine Yellow; Glucose Urine UA Negative (Negative); Leukocyte Esterase Urine Trace (Negative); Nitrite Urine Negative (Negative); UMIC TRIGGER UACC YES; Urine Blood Moderate (2+) (Negative); Urine Ketones Negative (Negative); Urine Protein Negative (Neg-Trace)
[2023-04-07 18:10] LABS: Lactic Acid 1.3 mmol/L (0.5-2.0)
[2023-04-07] MEDS: cefTRIAXone sodium 1 GM in 0.9 % Sodium Chloride 50 ML IV (18:10)
[2023-04-07 18:11] LABS: Bacteria Urine None Seen (None Seen); Hyaline Casts Urine 0-2 /LPF (0-2); RBC Urine >20 /HPF (0-2); Squamous Epithelial Cell Urine 0-2 /HPF (0-2); WBC Urine 0-5 /HPF (0-5)
[2023-04-07 18:17] LABS: Alanine Aminotransferase 44 U/L (0-31); Albumin Level 3.5 g/dL (3.5-5.0); Alkaline Phosphatase 99 U/L (39-117); Anion Gap 20 (12-20); Aspartate Amino Transferase 33 U/L (5-31); B Type Natriuretic Peptide 170 pg/mL (<100); Bilirubin Total 0.4 mg/dL (0.0-1.0); Blood Urea Nitrogen 15 mg/dL (9-16); Calcium 10.2 mg/dL (8.4-10.2); Carbon Dioxide 32 mmol/L (22-29); Chloride 95 mmol/L (96-108); Creatinine Clr Calc Pharmacy 53.4; Estimated Glomerular Filt Rate 46; Glucose Random 118 mg/dL (60-115); Magnesium 1.5 mg/dL (1.6-2.6); Potassium 4.6 mmol/L (3.3-5.1); Sodium 142 mmol/L (135-145); Total Protein 6.3 g/dL (6.5-8.0)
[2023-04-07 18:23] LABS: COVID-19 Test Negative (Negative); IDNOW Serial# 08D9AD1C
[2023-04-07] MEDS: Magnesium Sulfate/D5W 1 GM/100 ML PIGGYBACK IV ×2 (19:24→20:20)
--- NOTE | 2023-04-07 19:31 | PC.NURSE ---
Pt a&o, family at the bedside, medicated per Nov, Notified RN Indira,.
[2023-04-07] MEDS: Magnesium Hydrox/Alum Hydrox 30 ML ORAL.SUSP 15 ML PO (19:42)
[2023-04-07 19:45] VITALS: BP 121/41; PULSE 85; RESP 18; TEMP 36.9; O2SAT 93
--- NOTE | 2023-04-07 19:45 | PHA.MEDREC ---
Pharmacy Consult ? Medication Reconciliation Pharmacy has completed the medication reconciliation. Patient's son brought in all medications to confirmed correct medications. Patient has 3 tablets left of cefuroxime and one tablet left of digoxin (recently discharged with 3 day supply). Medication patient no longer taking with a recent fill history: - metoprolol succinate was stop on 04/05 discharge - metolazone was stopped on 03/14 discharge - gabapentin and pregablin both stopped Gertrude Mckoy, YaraD
[2023-04-07] MEDS: Albuterol/Iprat 2.5/0.5MG 3 ML AMPUL.NEB INHALE ×2 (19:58→20:03)
--- NOTE | 2023-04-07 19:58 | P.HPHOSP_ITS ---
History of Present Illness Date of Service: 04/07/23 Chief Complaint: Dyspnea This is a 72-year-old female with pertinent history of atrial fibrillation on anticoagulation, chronic hypoxemic respiratory failure due to COPD, essential hypertension presents to the emergency department for evaluation of dyspnea. Of note, patient was recently admitted with septic shock due to left lung pneumonia and discharged on 04/04. Patient states that over the last couple of days, her breathing got worse. Her oxygen requirements at home increased. Also has associated wheezing. Patient states she developed a cough with clear sputum production that started on the day of presentation. No fever or chills. Patient denies orthopnea or PND. No abdominal pain, changes in urinary or bowel habits. Patient does endorse intermittent palpitations. The emergency department, patient requiring 5 L supplemental oxygen and co ntinued to wheeze despite multiple breathing treatments Review of Systems Constitutional: Constitutional: Reports fatigue, Reports lethargy and Reports malaise Cardiovascular: Cardiovascular: Reports dyspnea on exertion Respiratory: Respiratory: Reports cough, Reports dyspnea on exertion and Reports wheezing Gastrointestinal: Gastrointestinal: Reports no additional gastrointestinal complaints Genitourinary: Genitourinary: Reports no additional female genitourinary complaints Endocrine: Endocrine: Reports fatigue Allergic/Immunologic: Allergic/Immunologic: Reports wheezing [facility] Medical History Carpal tunnel syndrome, left COPD (chronic obstructive pulmonary disease) High blood pressure Lung cancer Nerve pain Pneumonia Pertinent family history: No family history of early CAD Surgical History H/O: hysterectomy Social History Household Members: Spouse Housing: Condominium Do you presently have visiting nurse or other home services: Yes ([facility]) Alcohol intake: never Patient Tobacco Use Status: Former Tobacco user Tobacco use type: Cigarette Cigarette Packs Per Day: 1 Cigarettes Per Day: 20.0 Smoked in Last 30 Days: No e-Cigarette/Vaping Use: Never Used Second Hand Smoke Exposure: No Use of substances other than those prescribed or required for medical reasons: No Advance Directives: Yes Advance Directives on File: Yes Advance Directives Date on File: 03/23/23 service: No Current occupational status: retired Current occupation: left handed Meds Allergies Allergy/AdvReac Type Severity Reaction Status Date / Time Penicillin Allergy Unknown rash Uncoded 03/15/23 16:50 Active Medications: Current Medications Pharmacy Consult (Consult Rx Perform Med Rec) 1 each MISCELLANE ONCE PRN PRN Reason: Consult order Home Medications Medication Instructions Recorded Confirmed Last Taken Type furosemide 80 mg tablet 80 mg PO DAILY 03/15/23 04/07/23 03/15/23 History lisinopril 20 mg tablet 20 mg PO DAILY 03/15/23 04/07/23 03/15/23 History tramadol 50 mg tablet 50 mg PO TID PRN Pain 03/15/23 04/07/23 03/15/23 History multivitamin 1 tab PO DAILY 04/07/23 04/07/23 Unknown History Physical Exam Vital Signs and Narrative: Vital Signs: Last Vital Signs Temp 98.4 F 04/07/23 19:45 Pulse 85 04/07/23 19:45 Resp 18 04/07/23 19:45 BP 121/41 L 04/07/23 19:45 Pulse Ox 93 04/07/23 19:45 O2 Del Method Nasal Cannula 04/07/23 19:45 O2 Flow Rate 4 04/07/23 19:45 Oxygen Flow Rate 4 04/07/23 17:14 BMI result Body Mass Index 46.9 Middle-aged female lying in bed in mild distress on supplemental oxygen Neck supple, no JVD Regular rate and rhythm, S1-S2 heard Bilateral wheezing without crackles Abdomen soft nontender, no guarding, no rigidity Patient is awake, alert and oriented to self, place, time and person ; no focal motor deficit Psych: Normal mood Results Labs 04/07/23 17:33 04/07/23 17:34 Labs: Laboratory Results - last 24 hr 04/07/23 04/07/23 04/07/23 17:32 17:33 17:33 MCV 94.9 MCH 29.4 MCHC 31.0 RDW 15.3 Plt Count 210 MPV 9.6 Immature Gran % (Auto) 0.6 H Neut % (Auto) 80.5 H Lymph % (Auto) 9.8 L [place] % (Auto) 6.9 Eos % (Auto) 1.8 Baso % (Auto) 0.4 Lymph # (Auto) 1.3 [place] # (Auto) 0.9 Eos # (Auto) 0.2 Baso # (Auto) 0.1 Abs Immat Gran (auto) 0.08 H Absolute Neuts (auto) 10.9 H Absolute Nucleated RBC 0.000 Nucleated RBC % (auto) 0.0 Anion Gap Estim Creat Clear Calc Estimated GFR Random Glucose Lactic Acid 1.3 Calcium Magnesium Total Bilirubin AST ALT Alkaline Phosphatase B-Natriuretic Peptide Total Protein Albumin Urine Color Yellow Urine Appearance Clear Urine pH 5.0 Ur Specific [place] 1.010 Urine Protein Negative Urine Glucose (UA) Negative Urine Ketones Negative Urine Blood Moderate (2+) H Urine Nitrite Negative Ur Leukocyte Esterase Trace H Urine RBC >20 H Urine WBC 0-5 Ur Squamous Epith Cells 0-2 Urine Bacteria None Seen Hyaline Casts 0-2 Urine Yeast Present COVID-19 ([facility]) COVID-19 [place] 04/07/23 04/07/23 04/07/23 17:34 17:34 17:52 MCV MCH MCHC RDW Plt Count MPV Immature Gran % (Auto) Neut % (Auto) Lymph % (Auto) [place] % (Auto) Eos % (Auto) Baso % (Auto) Lymph # (Auto) [place] # (Auto) Eos # (Auto) Baso # (Auto) Abs Immat Gran (auto) Absolute Neuts (auto) Absolute Nucleated RBC Nucleated RBC % (auto) Anion Gap 20 Estim Creat Clear Calc 53.4 Estimated GFR 46 Random Glucose 118 H Lactic Acid Calcium 10.2 Magnesium 1.5 L Total Bilirubin 0.4 AST 33 H ALT 44 H Alkaline Phosphatase 99 B-Natriuretic Peptide 170 H Total Protein 6.3 L Albumin 3.5 Urine Color Urine Appearance Urine pH Ur Specific [place] Urine Protein Urine Glucose (UA) Urine Ketones Urine Blood Urine Nitrite Ur Leukocyte Esterase Urine RBC Urine WBC Ur Squamous Epith Cells Urine Bacteria Hyaline Casts Urine Yeast COVID-19 ([facility]) Negative COVID-19 Clin Com See Note Imaging Radiologist's Impressions: Impressions Chest X-Ray 04/07/23 18:07 IMPRESSION: 1. Improved pulmonary aeration in the retrocardiac/left lower lobe. 2. No new focal airspace opacity. Assessment and Plan (1) COPD (chronic obstructive pulmonary disease): Status: Acute Plan This is a 72-year-old female with pertinent history of atrial fibrillation on anticoagulation, chronic hypoxemic respiratory failure due to COPD, essential hypertension presents to the emergency department for evaluation of dyspnea. #. Acute on chronic hypoxemic respiratory failure due to acute exacerbation of COPD. Will admit patient with supplemental oxygen. Uses 3 L baseline at home. Monitor and wean as tolerated. Maintain oxygen saturation greater than 88%. Initiating systemic steroids. Scheduled and p.r.n. DuoNebs. Initiating azithromycin for pleiotropic effect #. Reactive leukocytosis. No opacity on imaging. Patient without fever or chills. Recently completed antibiotic course for left-sided pneumonia #. Intermittent palpitations in a patient with AFib. Rate controlled in the ER. Continue cardiac monitoring. On Eliquis, digoxin and diltiazem #. Essential hypertension. Continue home antihypertensives #. Hypomagnesemia. Repleted #. Elevated troponin. Likely due to increased demand DVT prophylaxis: Eliquis DNR/DNI. Discussed with family and patient at bedside Admit as inpatient and will require two night minimum hospital stay for supplemental oxygen Time Spent With Patient Time: Total time managing care of this patient today ____ minutes. Quality Stroke Does the patient have a stroke diagnosis?: No VTE Prior VTE?: No VTE Risk Level:: Medical - moderate - high VTE Device Contraindication: Treatment Not Indicated VTE Drug Contraindication: N/A - Med Ordered
[2023-04-07 19:59] VITALS: PULSE 94; RESP 18; O2SAT 94
--- NOTE | 2023-04-07 20:07 | PC.NURSE ---
This radio news writer assumed care of pt at 1900, pt a&Ox4, denies pain, pt sitting up on stretcher, reports cough with productive yellow sputum. Oz sat at 94% NC 4L, RR: 18-20, Lung sounds diminished. Pt has a [address] draining yellow clear urine. Son at bedside.
[2023-04-07 20:26] LABS: VBG Base Excess 11.5 mmol/L; VBG HCO3 37 mmol/L (22-26); VBG pCO2 55 mmHg; VBG pH 7.43 (7.32-7.43); VBG pO2 50 mmHg
[2023-04-07] MEDS: methylPREDNISolone Sod Succ 40 MG/ML VIAL IVPUSH (20:29)
[2023-04-07] MEDS: Nystatin Oral Susp 500,000 UNIT/5 ML ORAL.SUSP 400000 UNIT PO (20:30)
[2023-04-07] MEDS: Apixaban 5 MG TABLET PO (20:30)
[2023-04-07] MEDS: Acetaminophen 325 MG TABLET 650 MG PO (20:33)
[2023-04-07 20:42] LABS: Troponin-I High Sensitivity 26.5 ng/L (<3.5-17.0)
[2023-04-07 20:44] LABS: Venous Blood Gas Refer to POC result
--- NOTE | 2023-04-07 21:45 | PC.NURSE ---
Report given to ARMANI Oakley to 452, pt will be transported by transporter. Pt aware of plan.
[2023-04-07 22:54] VITALS: BP 138/78; PULSE 79; RESP 26; TEMP 36.1; O2SAT 95
[2023-04-07] MEDS: Azithromycin 500 MG in 0.9 % Sodium Chloride 250 ML 125 MG IV (23:02)
[2023-04-07 23:13] VITALS: BP 140/73; PULSE 103; RESP 15; TEMP 36.3; O2SAT 95
[2023-04-07] MEDS: 0.9 % Sodium Chloride Flush 3 ML SYRINGE IVFLUSH (23:56)
[2023-04-08] VITALS (8 sets, daily range): BP systolic 102–136; BP diastolic 53–60; PULSE 64–96; RESP 13–18; TEMP 35.9–36.4; O2SAT 91–94
[2023-04-08] MEDS: Melatonin 3 MG TABLET 6 MG PO (01:35)
[2023-04-08] MEDS: ondansetron HCL 4 MG/2 ML VIAL IVPUSH (02:45)
[2023-04-08 06:28] LABS: Basophils Percent Auto 0.1 % (0-2); Hematocrit 35.9 % (37.0-47.0); Imm Gran Abs Auto 0.05 X10*3/uL (0.00-0.03); Imm Gran Pct Auto 0.6 % (0.0-0.4); Lymphocytes Absolute Auto 0.6 X10*3/uL (1.2-4.9); Lymphocytes Percent Auto 6.7 % (20-40); MANUAL DIFF FLAG SCAN; Mean Corpuscular HGB Conc 30.6 g/dl (31.0-35.0); Mean Corpuscular Hemoglobin 28.6 pg (27.0-33.0); Mean Corpuscular Volume 93.5 fL (80.0-98.0); Mean Platelet Volume 9.7 fL (9.4-12.3); Monocytes Absolute Auto 0.1 X10*3/uL (0.1-1.2); Monocytes Percent Auto 0.7 % (2-11); Neutrophils Absolute Auto 7.5 x10*3/uL (2.0-8.3); Neutrophils Percent Auto 91.9 % (45-73); Platelet Count 216 X10*3/uL (160-400); Red Blood Count 3.84 X10*6/uL (4.20-5.50); SCAN SMEAR FLAG 1; White Blood Count 8.2 X10*3/uL (4.8-10.8)
[2023-04-08 06:46] LABS: Anion Gap 17 (12-20); Blood Urea Nitrogen 17 mg/dL (9-16); Carbon Dioxide 32 mmol/L (22-29); Chloride 96 mmol/L (96-108); Creatinine Clr Calc Pharmacy 54.7; Estimated Glomerular Filt Rate 47; Glucose Random 144 mg/dL (60-115); Potassium 4.4 mmol/L (3.3-5.1); Sodium 141 mmol/L (135-145)
[2023-04-08 06:47] LABS: Magnesium 2.3 mg/dL (1.6-2.6)
[2023-04-08 06:49] LABS: SLIDE REVIEW VERIFIED
[2023-04-08] MEDS: Albuterol/Iprat 2.5/0.5MG 3 ML AMPUL.NEB INHALE ×3 (07:17→19:20)
[2023-04-08] MEDS: Nystatin Oral Susp 500,000 UNIT/5 ML ORAL.SUSP 400000 UNIT PO ×4 (09:05→19:57)
[2023-04-08] MEDS: methylPREDNISolone Sod Succ 40 MG/ML VIAL IVPUSH ×2 (09:09→19:48)
[2023-04-08] MEDS: 0.9 % Sodium Chloride Flush 3 ML SYRINGE IVFLUSH ×3 (09:09→19:58)
[2023-04-08] MEDS: dilTIAZem HCL CD 120 MG CAP.ER.DEG PO (09:10)
[2023-04-08] MEDS: Digoxin 0.125 MG TABLET PO (09:10)
[2023-04-08] MEDS: Apixaban 5 MG TABLET PO ×2 (09:10→19:57)
[2023-04-08] MEDS: lisinopriL 20 MG TABLET PO (09:10)
[2023-04-08] MEDS: Multivitamin TABLET 1 TAB PO (09:10)
[2023-04-08] MEDS: Furosemide 40 MG TABLET 80 MG PO (09:10)
--- NOTE | 2023-04-08 11:01 | P.PNIM_ITS ---
Subjective Subjective Date of Service: 04/08/23 Interval History: f/u on shortness of breath, feels the same Physical Exam Vital Signs: Vital Signs: Last Vital Signs Temp 97.1 F 04/08/23 08:00 Pulse 90 04/08/23 08:00 Resp 18 04/08/23 08:00 BP 125/55 L 04/08/23 08:00 Pulse Ox 91 L 04/08/23 08:00 O2 Del Method Nasal Cannula 04/08/23 08:00 O2 Flow Rate 4 04/08/23 08:00 Oxygen Flow Rate 4 04/07/23 17:14 BMI result Body Mass Index 46.9 Const: Other: General: AO X 3, no acute distress Resp: CTA bilateral CVS: S1,S2,RRR GI: +BS, NT, no distention Skin: No rash Neuro: motor grossly intact Psych: appropriate affect Objective Data Active Medications Acetaminophen (Acetaminophen 325 Mg Tablet) 650 mg PO Q6H PRN PRN Reason: Pain, Mild (Pain Scale 1-3) Last Admin: 04/07/23 20:33 Dose: 650 mg Documented By: ARIES Albuterol/Ipratropium (Albuterol/Iprat 2.5/0.5mg 3 Ml Ampul.Neb) 3 ml INHALE RQ4H WHILE AWAKE [facility] Last Admin: 04/08/23 07:17 Dose: 3 ml Documented By: BLAXAVI Albuterol/Ipratropium (Albuterol/Iprat 2.5/0.5mg 3 Ml Ampul.Neb) 3 ml INHALE Q4H PRN PRN Reason: Wheezing Apixaban (Apixaban 5 Mg Tablet) 5 mg PO BID [facility] Last Admin: 04/08/23 09:10 Dose: 5 mg Documented By: SERAFIN Diltiazem HCl (Diltiazem Hcl Cd 120 Mg Cap.Er.Deg) 120 mg PO DAILY [facility]; Protocol Last Admin: 04/08/23 09:10 Dose: 120 mg Documented By: SERAFIN Furosemide (Furosemide 40 Mg Tablet) 80 mg PO DAILY [facility]; Protocol Last Admin: 04/08/23 09:10 Dose: 80 mg Documented By: SERAFIN Azithromycin 500 mg/ Sodium (Chloride) 250 mls @ 125 mls/hr IV Q24H [facility] Last Infusion: 04/08/23 01:15 Dose: 0 mls/hr Documented By: CHRISTOS Lisinopril (Lisinopril 20 Mg Tablet) 20 mg PO DAILY [facility]; Protocol Last Admin: 04/08/23 09:10 Dose: 20 mg Documented By: SERAFIN Melatonin (Melatonin 3 Mg Tablet) 6 mg PO BEDTIME PRN PRN Reason: Insomnia Last Admin: 04/08/23 01:35 Dose: 6 mg Documented By: CHRISTOS Methylprednisolone Sodium Succinate (Methylprednisolone Sod Succ 40 Mg/Ml Vial) 40 mg IVPUSH Q12H [facility] Last Admin: 04/08/23 09:09 Dose: 40 mg Documented By: SERAFIN Multivitamins/Vitamin C (Multivitamin Tablet) 1 tab PO DAILY [facility] Last Admin: 04/08/23 09:10 Dose: 1 tab Documented By: SERAFIN Nystatin (Nystatin Oral Susp 500,000 Unit/5 Ml Oral.Susp) 400,000 unit PO QID [facility]; Protocol Last Admin: 04/08/23 09:05 Dose: 400,000 unit Documented By: SERAFIN Ondansetron HCl (Ondansetron Hcl 4 Mg/2 Ml Vial) 4 mg IVPUSH Q8H PRN PRN Reason: Nausea and Vomiting Last Admin: 04/08/23 02:45 Dose: 4 mg Documented By: CHRISTOS Pharmacy Consult (Consult Rx Perform Med Rec) 1 each MISCELLANE ONCE PRN PRN Reason: Consult order Sodium Chloride (0.9 % Sodium Chloride Flush 3 Ml Syringe) 3 ml IVFLUSH QSHIFT [facility] Last Admin: 04/08/23 09:09 Dose: 3 ml Documented By: SERAFIN Labs 04/08/23 06:00 04/08/23 06:00 Labs: Laboratory Results - last 24 hr 04/07/23 04/07/23 04/07/23 17:32 17:33 17:33 MCV 94.9 MCH 29.4 MCHC 31.0 RDW 15.3 Plt Count 210 MPV 9.6 Immature Gran % (Auto) 0.6 H Neut % (Auto) 80.5 H Lymph % (Auto) 9.8 L [place] % (Auto) 6.9 Eos % (Auto) 1.8 Baso % (Auto) 0.4 Lymph # (Auto) 1.3 [place] # (Auto) 0.9 Eos # (Auto) 0.2 Baso # (Auto) 0.1 Abs Immat Gran (auto) 0.08 H Absolute Neuts (auto) 10.9 H Absolute Nucleated RBC 0.000 Nucleated RBC % (auto) 0.0 Smear Tech's Comments VBG pH VBG pCO2 VBG pO2 VBG HCO3 VBG O2 Saturation VBG Base Excess Anion Gap Estim Creat Clear Calc Estimated GFR Random Glucose Lactic Acid 1.3 Calcium Magnesium Total Bilirubin AST ALT Alkaline Phosphatase B-Natriuretic Peptide Total Protein Albumin Urine Color Yellow Urine Appearance Clear Urine pH 5.0 Ur Specific [place] 1.010 Urine Protein Negative Urine Glucose (UA) Negative Urine Ketones Negative Urine Blood Moderate (2+) H Urine Nitrite Negative Ur Leukocyte Esterase Trace H Urine RBC >20 H Urine WBC 0-5 Ur Squamous Epith Cells 0-2 Urine Bacteria None Seen Hyaline Casts 0-2 Urine Yeast Present COVID-19 ([facility]) COVID-19 Clin Com 04/07/23 04/07/23 04/07/23 17:34 17:34 17:52 MCV MCH MCHC RDW Plt Count MPV Immature Gran % (Auto) Neut % (Auto) Lymph % (Auto) [place] % (Auto) Eos % (Auto) Baso % (Auto) Lymph # (Auto) [place] # (Auto) Eos # (Auto) Baso # (Auto) Abs Immat Gran (auto) Absolute Neuts (auto) Absolute Nucleated RBC Nucleated RBC % (auto) Smear Tech's Comments VBG pH VBG pCO2 VBG pO2 VBG HCO3 VBG O2 Saturation VBG Base Excess Anion Gap 20 Estim Creat Clear Calc 53.4 Estimated GFR 46 Random Glucose 118 H Lactic Acid Calcium 10.2 Magnesium 1.5 L Total Bilirubin 0.4 AST 33 H ALT 44 H Alkaline Phosphatase 99 B-Natriuretic Peptide 170 H Total Protein 6.3 L Albumin 3.5 Urine Color Urine Appearance Urine pH Ur Specific [place] Urine Protein Urine Glucose (UA) Urine Ketones Urine Blood Urine Nitrite Ur Leukocyte Esterase Urine RBC Urine WBC Ur Squamous Epith Cells Urine Bacteria Hyaline Casts Urine Yeast COVID-19 ([facility]) Negative COVID-19 Clin Com See Note 04/07/23 04/08/23 04/08/23 20:18 06:00 06:00 MCV 93.5 MCH 28.6 MCHC 30.6 L RDW 15.0 Plt Count 216 MPV 9.7 Immature Gran % (Auto) 0.6 H Neut % (Auto) 91.9 H Lymph % (Auto) 6.7 L [place] % (Auto) 0.7 L Eos % (Auto) 0.0 Baso % (Auto) 0.1 Lymph # (Auto) 0.6 L [place] # (Auto) 0.1 Eos # (Auto) 0.0 Baso # (Auto) 0.0 Abs Immat Gran (auto) 0.05 H Absolute Neuts (auto) 7.5 Absolute Nucleated RBC 0.000 Nucleated RBC % (auto) 0.0 Smear Tech's Comments VERIFIED VBG pH 7.43 VBG pCO2 55 VBG pO2 50 VBG HCO3 37 H VBG O2 Saturation 81.0 VBG Base Excess 11.5 Anion Gap Estim Creat Clear Calc Estimated GFR Random Glucose Lactic Acid Calcium Magnesium 2.3 Total Bilirubin AST ALT Alkaline Phosphatase B-Natriuretic Peptide Total Protein Albumin Urine Color Urine Appearance Urine pH Ur Specific [place] Urine Protein Urine Glucose (UA) Urine Ketones Urine Blood Urine Nitrite Ur Leukocyte Esterase Urine RBC Urine WBC Ur Squamous Epith Cells Urine Bacteria Hyaline Casts Urine Yeast COVID-19 ([facility]) COVID-19 Clin Com 04/08/23 06:00 MCV MCH MCHC RDW Plt Count MPV Immature Gran % (Auto) Neut % (Auto) Lymph % (Auto) [place] % (Auto) Eos % (Auto) Baso % (Auto) Lymph # (Auto) [place] # (Auto) Eos # (Auto) Baso # (Auto) Abs Immat Gran (auto) Absolute Neuts (auto) Absolute Nucleated RBC Nucleated RBC % (auto) Smear Tech's Comments VBG pH VBG pCO2 VBG pO2 VBG HCO3 VBG O2 Saturation VBG Base Excess Anion Gap 17 Estim Creat Clear Calc 54.7 Estimated GFR 47 Random Glucose 144 H Lactic Acid Calcium 10.0 Magnesium Total Bilirubin AST ALT Alkaline Phosphatase B-Natriuretic Peptide Total Protein Albumin Urine Color Urine Appearance Urine pH Ur Specific [place] Urine Protein Urine Glucose (UA) Urine Ketones Urine Blood Urine Nitrite Ur Leukocyte Esterase Urine RBC Urine WBC Ur Squamous Epith Cells Urine Bacteria Hyaline Casts Urine Yeast COVID-19 ([facility]) COVID-19 Clin Com Assessment and Plan (1) Atrial fibrillation with rapid ventricular response: Status: Acute (2) COPD (chronic obstructive pulmonary disease): Status: Acute Plan This is a 72-year-old female with pertinent history of atrial fibrillation on anticoagulation, chronic hypoxemic respiratory failure due to COPD, essential hypertension presents to the emergency department for evaluation of dyspnea. #.? Acute on chronic hypoxemic respiratory failure due to acute exacerbation of COPD.? .? Uses 3 L baseline at home.? Maintain oxygen saturation greater than 88%.? continue systemic steroids.? Scheduled and p.r.n. DuoNebs.? Initiating azithromycin for pleiotropic effect #.? Reactive leukocytosis.? No opacity on imaging.? Patient without fever or chills.? Recently completed antibiotic course for left-sided pneumonia #.? Intermittent palpitations in a patient with AFib.? Rate controlled in the ER.? Continue cardiac monitoring.? On Eliquis, digoxin and diltiazem #.? Essential hypertension.? Continue home antihypertensives #.? Hypomagnesemia.? Repleted #.? Elevated troponin.? Likely due to increased demand DVT prophylaxis: Lesly DNR/DNI.? Discussed with family and patient at bedside Need for inpt: IV meds for copd exacerbation and need for placement, she declined rehab during last visit Time Spent With Patient Time: Total time managing care of this patient today ____ minutes. Quality Stroke Does the patient have a stroke diagnosis?: No VTE Prior VTE?: No VTE Risk Level:: Medical - moderate - high VTE Device Contraindication: Treatment Not Indicated VTE Drug Contraindication: N/A - Med Ordered
--- NOTE | 2023-04-08 16:28 | MHC.CM.PN ---
Lives at home w/. Owns WC. drives her where she needs to go. Previously on service with [facility]. Both Pt and want STR in their area ([facility], [place] [facility], [place] [facility], [place] 4), but Pt does not want [facility]. plans on coming in Monday 04/09 or Tuesday 04/10 to obtain a list of SNFs to look over and give CM choices. CM to follow.
[2023-04-08] MEDS: traMADoL HCL 50 MG TABLET 25 MG PO (18:38)
[2023-04-08] MEDS: Azithromycin 500 MG in 0.9 % Sodium Chloride 250 ML 250 MG IV (19:48)
[2023-04-09] VITALS (11 sets, daily range): BP systolic 82–116; BP diastolic 40–59; PULSE 76–84; RESP 13–18; TEMP 35.8–36.7; O2SAT 89–93
[2023-04-09] MEDS: traMADoL HCL 50 MG TABLET 25 MG PO ×3 (00:46→21:07)
[2023-04-09] MEDS: Albuterol/Iprat 2.5/0.5MG 3 ML AMPUL.NEB INHALE ×4 (07:16→19:32)
[2023-04-09] MEDS: Apixaban 5 MG TABLET PO ×2 (09:14→19:59)
[2023-04-09] MEDS: 0.9 % Sodium Chloride 500 ML 50 ML IV (09:14)
[2023-04-09] MEDS: methylPREDNISolone Sod Succ 40 MG/ML VIAL IVPUSH ×2 (09:14→19:59)
[2023-04-09] MEDS: Nystatin Oral Susp 500,000 UNIT/5 ML ORAL.SUSP 400000 UNIT PO ×4 (09:14→19:59)
[2023-04-09] MEDS: 0.9 % Sodium Chloride Flush 3 ML SYRINGE IVFLUSH ×3 (09:14→19:59)
[2023-04-09] MEDS: Multivitamin TABLET 1 TAB PO (09:14)
--- NOTE | 2023-04-09 10:09 | P.PNIM_ITS ---
Subjective Subjective Date of Service: 04/09/23 Interval History: reports no sob, and more comfortable, BP is on low side bu assymptomatic SBP 82/40, giving Normal saline 500 bolus Physical Exam Vital Signs: Vital Signs: Last Vital Signs Temp 97.9 F 04/09/23 08:00 Pulse 84 04/09/23 08:00 Resp 18 04/09/23 08:00 BP 82/40 L 04/09/23 08:00 Pulse Ox 90 L 04/09/23 08:00 O2 Del Method Nasal Cannula 04/09/23 08:00 O2 Flow Rate 4 04/09/23 08:00 Oxygen Flow Rate 4 04/07/23 17:14 BMI result Body Mass Index 46.9 Const: Other: General: AO X 3, no acute distress Resp: CTA bilateral CVS: S1,S2,RRR, no leg edema GI: +BS, NT, no distention Skin: No rash Neuro: motor grossly intact Psych: appropriate affect Objective Data Active Medications Acetaminophen (Acetaminophen 325 Mg Tablet) 650 mg PO Q6H PRN PRN Reason: Pain, Mild (Pain Scale 1-3) Last Admin: 04/07/23 20:33 Dose: 650 mg Documented By: SERRANCeleste Albuterol/Ipratropium (Albuterol/Iprat 2.5/0.5mg 3 Ml Ampul.Neb) 3 ml INHALE RQ4H WHILE AWAKE [facility] Last Admin: 04/09/23 07:16 Dose: 3 ml Documented By: BLAXAVI Albuterol/Ipratropium (Albuterol/Iprat 2.5/0.5mg 3 Ml Ampul.Neb) 3 ml INHALE Q4H PRN PRN Reason: Wheezing Apixaban (Apixaban 5 Mg Tablet) 5 mg PO BID [facility] Last Admin: 04/09/23 09:14 Dose: 5 mg Documented By: SERAFIN Diltiazem HCl (Diltiazem Hcl Cd 120 Mg Cap.Er.Deg) 120 mg PO DAILY [facility]; Protocol Last Admin: 04/09/23 09:15 Dose: Not Given Documented By: SERAFIN Non-Admin Reason: SBP too low Furosemide (Furosemide 40 Mg Tablet) 80 mg PO DAILY [facility]; Protocol Last Admin: 04/09/23 09:15 Dose: Not Given Documented By: SERAFIN Non-Admin Reason: SBP too low Azithromycin 500 mg/ Sodium (Chloride) 250 mls @ 125 mls/hr IV Q24H [facility] Last Infusion: 04/08/23 21:52 Dose: 0 mls/hr Documented By: INGE Sodium Chloride (Ns) 500 mls @ 50 mls/hr IV .Q10H [facility] Stop: 04/09/23 18:44 Last Admin: 04/09/23 09:14 Dose: 50 mls/hr Documented By: SERAFIN Lisinopril (Lisinopril 20 Mg Tablet) 20 mg PO DAILY [facility]; Protocol Last Admin: 04/09/23 09:25 Dose: Not Given Documented By: SERAFIN Non-Admin Reason: bp too low Melatonin (Melatonin 3 Mg Tablet) 6 mg PO BEDTIME PRN PRN Reason: Insomnia Last Admin: 04/08/23 01:35 Dose: 6 mg Documented By: CHRISTOS Methylprednisolone Sodium Succinate (Methylprednisolone Sod Succ 40 Mg/Ml Vial) 40 mg IVPUSH Q12H [facility] Last Admin: 04/09/23 09:14 Dose: 40 mg Documented By: SERAFIN Multivitamins/Vitamin C (Multivitamin Tablet) 1 tab PO DAILY [facility] Last Admin: 04/09/23 09:14 Dose: 1 tab Documented By: SERAFIN Nystatin (Nystatin Oral Susp 500,000 Unit/5 Ml Oral.Susp) 400,000 unit PO QID [facility]; Protocol Last Admin: 04/09/23 09:14 Dose: 400,000 unit Documented By: SERAFIN Ondansetron HCl (Ondansetron Hcl 4 Mg/2 Ml Vial) 4 mg IVPUSH Q8H PRN PRN Reason: Nausea and Vomiting Last Admin: 04/08/23 02:45 Dose: 4 mg Documented By: CHRISTOS Pharmacy Consult (Consult Rx Perform Med Rec) 1 each MISCELLANE ONCE PRN PRN Reason: Consult order Sodium Chloride (0.9 % Sodium Chloride Flush 3 Ml Syringe) 3 ml IVFLUSH QSHIFT [facility] Last Admin: 04/09/23 09:14 Dose: 3 ml Documented By: SERAFIN Tramadol HCl (Tramadol Hcl 50 Mg Tablet) 25 mg PO Q6H PRN PRN Reason: Pain, Severe (Pain Scale 7-10) Last Admin: 04/09/23 00:46 Dose: 25 mg Documented By: INGE Labs 04/08/23 06:00 04/08/23 06:00 Microbiology Microbiology Results: Microbiology 04/07/23 17:51 Blood Culture - Preliminary Blood - Venous No growth after 24 hours. 04/07/23 17:32 Blood Culture - Preliminary Blood - Venous No growth after 24 hours. Assessment and Plan (1) Atrial fibrillation with rapid ventricular response: Status: Acute (2) COPD (chronic obstructive pulmonary disease): Status: Acute Plan This is a 72-year-old female with pertinent history of atrial fibrillation on anticoagulation, chronic hypoxemic respiratory failure due to COPD, essential hypertension presents to the emergency department for evaluation of dyspnea. #.? Acute on chronic hypoxemic respiratory failure due to acute exacerbation of COPD.? .? Uses 3 L baseline at home.? Maintain oxygen saturation greater than 88%.? continue systemic steroids.? Scheduled and p.r.n. DuoNebs.? I azithromycin for pleiotropic effect #.? Reactive leukocytosis.? No opacity on imaging.? Patient without fever or c [place].? Recently completed antibiotic course for left-sided pneumonia #.? Intermittent palpitations in a patient with AFib.? Rate controlled in the ER.? Continue cardiac monitoring.? On Eliquis, digoxin and diltiazem #.? Essential hypertension.? Continue home antihypertensives #.? Hypomagnesemia.? Repleted #.? Elevated troponin.? Likely due to increased demand #. Hypotension--probably from med Not sepsis, Normal saline and reassess DVT prophylaxis: Lesly DNR/DNI.? Discussed with family and patient at bedside Need for inpt: IV meds for copd exacerbation and need for placement, she decl ined rehab during last visit but is now open to rehab Time Spent With Patient Time: Total time managing care of this patient today ____ minutes. Quality Stroke Does the patient have a stroke diagnosis?: No VTE Prior VTE?: No VTE Risk Level:: Medical - moderate - high VTE Device Contraindication: Treatment Not Indicated VTE Drug Contraindication: N/A - Med Ordered
[2023-04-09] MEDS: diphenhydrAMINE HCl 12.5 MG/5 ML LIQUID PO (15:33)
[2023-04-09] MEDS: Azithromycin 500 MG in 0.9 % Sodium Chloride 250 ML 125 MG IV (19:55)
[2023-04-10] MEDS: traMADoL HCL 50 MG TABLET PO (01:50)
[2023-04-10] MEDS: diphenhydrAMINE HCl 12.5 MG/5 ML LIQUID PO ×2 (02:18→09:36)
[2023-04-10 03:25] VITALS: BP 114/61; PULSE 78; RESP 18; TEMP 36.6; O2SAT 98
[2023-04-10 07:22] VITALS: PULSE 79; RESP 16; O2SAT 92
[2023-04-10] MEDS: Albuterol/Iprat 2.5/0.5MG 3 ML AMPUL.NEB INHALE ×2 (07:22→15:05)
[2023-04-10 07:30] VITALS: BP 108/55; PULSE 62; RESP 17; TEMP 37; O2SAT 91
[2023-04-10] MEDS: Nystatin Oral Susp 500,000 UNIT/5 ML ORAL.SUSP 400000 UNIT PO ×2 (09:30→16:40)
[2023-04-10] MEDS: 0.9 % Sodium Chloride Flush 3 ML SYRINGE IVFLUSH ×2 (09:30→16:42)
[2023-04-10] MEDS: Acetaminophen 325 MG TABLET 650 MG PO (09:30)
[2023-04-10] MEDS: traMADoL HCL 50 MG TABLET 25 MG PO ×2 (09:30→16:39)
[2023-04-10] MEDS: Multivitamin TABLET 1 TAB PO (09:31)
[2023-04-10] MEDS: Apixaban 5 MG TABLET PO (09:31)
[2023-04-10] MEDS: methylPREDNISolone Sod Succ 40 MG/ML VIAL IVPUSH (09:31)
[2023-04-10] MEDS: lisinopriL 20 MG TABLET PO (09:31)
[2023-04-10] MEDS: dilTIAZem HCL CD 120 MG CAP.ER.DEG PO (09:31)
[2023-04-10] MEDS: Furosemide 40 MG TABLET 80 MG PO (09:31)
--- NOTE | 2023-04-10 13:12 | PC.NURSE ---
Ken removed per md order at 1315. Patient tolerated well. Purewick in place. Patient due to void at 1915.
--- NOTE | 2023-04-10 13:34 | MHC.CM.PN ---
[facility] first choice and CM awaits a response from said facility. CM will follow
--- NOTE | 2023-04-10 14:57 | PM.DS ---
DS: Providers Provider Date of Service: 04/10/23 Date of admission: 04/07/23 19:56 Primary care physician: Luigi Hong MD DS: Diagnosis Discharge Diagnosis (1) Atrial fibrillation with rapid ventricular response: Status: Inactive (2) COPD (chronic obstructive pulmonary disease): Status: Acute DS: Summary Hospital Course Hospital Course: Chief Complaint: Dyspnea This is a 72-year-old female with pertinent history of atrial fibrillation on anticoagulation, chronic hypoxemic respiratory failure due to COPD, essential hypertension presents to the emergency department for evaluation of dyspnea.? Of note, patient was recently admitted with septic shock due to left lung pneumonia and discharged on 04/04.? Patient states that over the last couple of days, her breathing got worse.? Her oxygen requirements at home increased.? Also has associated wheezing.? Patient states she developed a cough with clear sputum production that started on the day of presentation.? No fever or chills.? Patient denies orthopnea or PND.? No abdominal pain, changes in urinary or bowel habits.? Patient does endorse intermittent palpitations. The emergency department, patient requiring 5 L supplemental oxygen and continued to wheeze despite multiple breathing treatments Hospital course: This patient presented with shortness of breath several after discharge from the hospital for pneumonia, respiratory failure and copd exacerbation. At discharge she was advised to go to rehab for better recovery period but she declined and rather went home and came back with shortness of breath and diagnosed with exacerbation of copd and was admitted treated with steroid, bronchidlators and Azithromycin for anti imflamatory property. She's better and this time she's willing to go to rehab Time Spent with Patient Time attestation: Total time managing care of this patient today ____ minutes. Discharge coordination time: Greater than 30 minutes Quality: Safe Use of Opioids Does Pt have an Active Cancer Diagnosis on the Problem List?: No Quality: Stroke Does the patient have a stroke diagnosis?: No Physical Exam Vital Signs: Vital Signs: Last Vital Signs Temp 98.6 F 04/10/23 07:30 Pulse 62 04/10/23 07:30 Resp 17 04/10/23 07:30 BP 108/55 L 04/10/23 07:30 Pulse Ox 91 L 04/10/23 07:30 O2 Del Method Nasal Cannula 04/10/23 07:30 O2 Flow Rate 4 04/10/23 07:30 Oxygen Flow Rate 4 04/07/23 17:14 BMI result Body Mass Index 46.9 DS: Data Data Completed and Pending Labs on day of discharge: Preliminary micro results at discharge 04/07/23 17:51 Blood Culture - Preliminary Blood - Venous No growth after 48 hours. 04/07/23 17:32 Blood Culture - Preliminary Blood - Venous No growth after 48 hours. Discharge Plan Discharge Anticipated Discharge Date/Time: 04/10/23 14:54 Patient Disposition: Xfer SNF Discharge Diagnosis: Acute on chronic respiratory failure Referrals: Filiberto Singhw [Outside] - 1 Week Physician,Madalyn J [Physician] - 1 Week Discharge Medications: New prednisone 20 mg tablet 20 mg PO DAILY Qty: 4 0RF azithromycin 250 mg tablet 250 mg PO DAILY 3 Days Qty: 3 0RF Continued lisinopril 20 mg tablet 20 mg PO DAILY tramadol 50 mg tablet 50 mg PO TID PRN (Reason: Pain) furosemide 80 mg tablet 80 mg PO DAILY nystatin 100,000 unit/mL Suspension 400,000 unit PO QID Qty: 300 0RF diltiazem HCl [Cardizem CD] 120 mg Capsule,Extended Release 24hr 120 mg PO DAILY Qty: 30 0RF Protocol: Hold for SBP/HR < HOLD for SBP < : 90 HOLD for HR < : 60 digoxin 125 mcg (0.125 mg) Tablet 0.125 mg PO DAILY Qty: 3 0RF Rx Instructions: finish on 04/08 Eliquis 5 mg Tablet 5 mg PO BID Qty: 60 0RF multivitamin Tablet 1 tab PO DAILY Discontinued cefuroxime axetil 500 mg tablet 500 mg PO BID 3 Days Qty: 6 0RF Rx Instructions: finish on 04/08 Discharge Orders: Discharge Order (Routine); Ordered 04/10/23 Ordered By: Kermit Graham Diet: Advance to usual diet Activity on Discharge: As tolerated Stand Alone Forms: Patient Portal Discharge page Care Plan Goals: recovery from respiratory failure Health Concerns: COPD Plan of Treatment: continue using inhalers take prednisone as directed use nystatin for thrush Azithromycin for 3 more days Assessment: follow with your Doctor in a week Discharge Date/Time: 04/10/23 18:25
--- NOTE | 2023-04-10 14:58 | MHC.CM.PN ---
Per ROUNDS discussion, Patient is medically cleared for dc to SNF/STR today. Patient will dc to her first choice SNF/[facility] today at 5:30 PM, via [facility]. Last IMM addressed on 04/08/2023. Patient and Son/Checo at listed # are aware of and very pleased with the dc plan.
[2023-04-10 15:06] VITALS: PULSE 84; RESP 16; O2SAT 92
[2023-04-10 15:48] VITALS: BP 108/56; PULSE 71; RESP 18; TEMP 36.6; O2SAT 92
== END 2023-04-10 18:25 | disposition skilled nursing facility (03) | DRG 190 ==
LOC: HO.ED 18:38 → HO.EDOVER 20:32 → HO.IMC 21:26
PROVIDERS: Physician Assistant; Admitting Provider Student in an Organized Health Care Education/Training Program; Emergency Provider Emergency Medicine; PCP Internal Medicine; Visit Provider Internal Medicine
DX: J44.1 Chronic obstructive pulmonary disease with (acute) exacerbation (principal); J96.21 Acute and chronic respiratory failure with hypoxia; Z68.42 Body mass index [BMI] 45.0-49.9, adult; I48.20 Chronic atrial fibrillation, unspecified; D72.829 Elevated white blood cell count, unspecified; Z66 Do not resuscitate; I95.2 Hypotension due to drugs; I10 Essential (primary) hypertension; E83.42 Hypomagnesemia; E66.01 Morbid (severe) obesity due to excess calories; Z20.822 Contact with and (suspected) exposure to COVID-19; Z99.81 Dependence on supplemental oxygen; Z87.891 Personal history of nicotine dependence; Z79.01 Long term (current) use of anticoagulants; Z79.899 Other long term (current) drug therapy
CPT/HCPCS: 36415; 71045; 80048; 80053; 81001; 82803; 83605; 83735; 83880; 84484; 85025; 87040; 87635; 93005; 94640; 97162; 99285; J0456; J0696; J2405; J2920; J3475

== ENCOUNTER → 2023-04-07 17:11 | Outpatient (BNV) | payer MEDICARE, OTHER, SELFPAY | PROVIDERS: Admitting Provider Student in an Organized Health Care Education/Training Program; Emergency Provider Emergency Medicine; Visit Provider Internal Medicine | DX: R94.31 Abnormal electrocardiogram [ECG] [EKG] (principal) | CPT/HCPCS: 93010 ==

== ENCOUNTER → 2023-04-07 17:23 | Outpatient (BNV) | payer MEDICARE, OTHER, SELFPAY | PROVIDERS: Emergency Provider Emergency Medicine; Visit Provider Student in an Organized Health Care Education/Training Program | DX: I48.91 Unspecified atrial fibrillation (principal); J44.9 Chronic obstructive pulmonary disease, unspecified | CPT/HCPCS: 99222; 99232; 99239 ==

== ENCOUNTER 2023-05-02 15:46 | Outpatient (REF) | payer MEDICARE, OTHER, SELFPAY ==
--- NOTE | ~2023-05-02 | US_ITS ---
EXAMINATION: US RETROPERITONEAL COMPLETE (RENAL) CLINICAL INFORMATION: Urinary retention. COMPARISON: CT abdomen and pelvis 03/29/2023. Ultrasound kidneys and bladder 10/13/2022. Ultrasound abdomen complete 03/05/2021. TECHNIQUE: Real-time imaging of the kidneys and bladder. FINDINGS: RIGHT KIDNEY: 9.4 x 5.2 x 4.3 cm (SAG x AP x TRV). The kidney is normal in size, contour, and echogenicity. Renal cortical thickness is normal. No renal calculi or hydronephrosis. Midpole cyst measures 2.0 x 1.8 x 2.0 cm. LEFT KIDNEY: 10.3 x 5.5 x 5.5 cm (SAG x AP x TRV). The kidney is normal in size, contour, and echogenicity. Renal cortical thickness is normal. No renal calculi or hydronephrosis. Midpole cyst measures 1.5 x 1.7 x 1.4 cm. BLADDER: Well distended and normal. Bilateral ureteral jets are demonstrated. Prevoid bladder volume is 209 mL. Postvoid bladder volume is 114 mL. US/US retroperitoneal comp IMPRESSION: Bilateral renal cysts. No suspicious features. Urinary retention.
== END 2023-05-02 15:47 | disposition home or self-care (01) ==
LOC: HO.US 15:46
PROVIDERS: PCP Internal Medicine; Visit Provider Internal Medicine
DX: R33.9 Retention of urine, unspecified (principal)
CPT/HCPCS: 76770

== ENCOUNTER 2023-07-06 14:55 | Emergency (ER) | payer MEDICARE, OTHER, SELFPAY ==
--- NOTE | 2023-07-06 | ECG_ITS ---
Test Reason : CHEST PAIN Blood Pressure : / mmHG Vent. Rate : 084 BPM Atrial Rate : 084 BPM P-R Int : 172 ms QRS Dur : 074 ms QT Int : 348 ms P-R-T Axes : 006 -25 032 degrees QTc Int : 411 ms Sinus rhythm with occasional Premature ventricular complexes Low voltage QRS Septal infarct (cited on or before 29-MAR-2023) Abnormal ECG When compared with ECG of 07-APR-2023 17:44, Premature ventricular complexes are now Present Questionable change in initial forces of Septal leads Referred By: Generic ED Physician Electronically Signed By:ROMEO NORIEGA MD
--- NOTE | ~2023-07-06 | XR_ITS ---
EXAMINATION: XR CHEST CLINICAL INFORMATION: Shortness of breath. COMPARISON: Chest radiograph 04/07/2023. TECHNIQUE: Frontal view of the chest was obtained. FINDINGS: Stable prominence of the cardiomediastinal silhouette. Unchanged chronic airspace opacities in the retrocardiac region/left lower lobe. Stable diffuse interstitial thickening. No new focal airspace density. Unchanged blunting of the left lateral costophrenic angle, likely associated with trace pleural fluid and pleural thickening. No pneumothorax. No acute osseous findings. XR/XR chest 1V IMPRESSION: No significant change compared to 04/07/2023 with chronic focal airspace opacities in the retrocardiac region/left lower lobe; in view of persistent/unresolved abnormality, correlation with chest CT is recommended.
[2023-07-06 15:03] VITALS: BP 128/62; PULSE 87; RESP 24; TEMP 36.8; O2SAT 93; BMI 46.1
--- NOTE | 2023-07-06 15:03 | ED.GENADULT ---
HPI - General Adult General Chief complaint: Dyspnea Stated complaint: diff breathing Time Seen by Provider: 07/06/23 15:36 Source: patient Mode of arrival: ambulatory Limitations: no limitations History of Present Illness HPI narrative: 72-year-old female history of COPD pulmonary nodule respiratory failure with hypoxia AKA atrial fibrillation on Eliquis arthritis in the past presented to her primary care doctor's office Dr. Hong wants the patient admitted directly. He did not get the patient directly admitted but sent the patient to the ER. Patient has had anasarca and swelling and worsening shortness of breath. Related Data Home Medications Medication Instructions Recorded Confirmed furosemide 80 mg tablet 80 mg PO DAILY 03/15/23 04/07/23 lisinopril 20 mg tablet 20 mg PO DAILY 03/15/23 04/07/23 tramadol 50 mg tablet 50 mg PO TID PRN Pain 03/15/23 04/07/23 multivitamin 1 tab PO DAILY 04/07/23 04/07/23 Previous Rx's Medication Instructions Recorded apixaban 5 mg tablet (Eliquis) 5 mg PO BID #60 tabs 04/05/23 digoxin 125 mcg (0.125 mg) tablet 0.125 mg PO DAILY #3 tabs 04/05/23 diltiazem HCl 120 mg 120 mg PO DAILY #30 caps 04/05/23 capsule,extended release 24 hr (Cardizem CD) nystatin 100,000 unit/mL oral 400,000 unit (4 mL) PO QID #300 mL 04/05/23 suspension azithromycin 250 mg tablet 250 mg PO DAILY 3 days #3 tabs 04/10/23 prednisone 20 mg tablet 20 mg PO DAILY #4 tabs 04/10/23 Allergies Allergy/AdvReac Type Severity Reaction Status Date / Time Penicillin Allergy Unknown rash Uncoded 03/15/23 16:50 Review of Systems Review of Systems: Review of systems: General: Patient denies any fever chills recent illness or falls Musculoskeletal: Denies back pain or body aches or other injuries HEENT: denies headache, runny nose, ear pain Respiratory: shortness of breath, cough Cardiovascular: no chest pain or palpitations : denies dysuria, frequency Abdomen: no nausea vomiting denies abdominal pain Extremities: Lower extremity swelling, no pain Skin: no diaphoresis Yes all other systems are reviewed and are negative PMFSH Past Medical History Medical History Carpal tunnel syndrome, left COPD (chronic obstructive pulmonary disease) High blood pressure Lung cancer Nerve pain Pneumonia Surgical History H/O: hysterectomy Social History Social History Household Members: Spouse Housing: House Do you presently have visiting nurse or other home services: Yes Alcohol intake: never Patient Tobacco Use Status: Former Tobacco user Tobacco use type: Cigarette Cigarette Packs Per Day: 1 Cigarettes Per Day: 20.0 Smoked in Last 30 Days: No e-Cigarette/Vaping Use: Never Used Second Hand Smoke Exposure: No Use of substances other than those prescribed or required for medical reasons: No Advance Directives: Yes Advance Directives on File: Yes Advance Directives Date on File: 03/23/23 service: No Current occupational status: retired Current occupation: left handed Physical Exam ED Vital Signs: Vital Signs - 24 hr 07/06/23 15:03 Temperature 98.3 F Pulse Rate 87 Respiratory Rate 24 H Blood Pressure 128/62 Pulse Oximetry 93 Oxygen Delivery Method Nasal Cannula BMI result Body Mass Index 46.1 General: Well-appearing well-nourished in no signs of distress HEENT: Normocephalic atraumatic Neck: No signs of JVD, no masses no tenderness or lymphadenopathy Cardiovascular: Regular rate and rhythm Respiratory: Clear to auscultation bilaterally Abdomen: Soft nontender no masses Extremities: Normal pedal pulses 1 to 2 +signs of edema Skin: Dry warm no rashes Back: No tenderness full ROM Course Course Course Narrative: Patient sent from Dr. Hong saw office for admission for anasarca/edema/shortness of breath, she usually uses 4 liters/minute nasal cannula at home and is now short of breath with that Patient sent by Dr. Hong for direct admission Labs EKG x-ray ordered Reevaluation(s) Reevaluation #1: 1724 x-ray and labs are all unremarkable patient still has normal vitals I feel comfortable discharging home I will give an IV dose of her Lasix family is at the bedside are agreeable to plan. Medical Decision Making Medical Decision Making MDM Narrative: Will get x-ray and labs including BNP patient does have some fluid of lower extremities but does not look to be in florid issues oxygen is normal vitals are stable Differential Diagnosis Differential Diagnoses: The differential diagnosis associated with the presentation includes CHF exacerbation, COPD, dyspnea pneumonia Admission/Observation Consideration of admission/observation: Escalation of care including admission/observation considered Lab Data MDM Lab Attestation statement: I reviewed the patient's lab results. 07/06/23 16:35 07/06/23 16:35 Labs: Lab Results 07/06/23 Range/Units 16:35 WBC 15.9 H (4.8-10.8) X10*3/uL RBC 3.38 L (4.20-5.50) X10*6/uL Hgb 8.2 L D (12.0-16.0) g/dl Hct 30.0 L (37.0-47.0) % MCV 88.8 (80.0-98.0) fL MCH 24.3 L (27.0-33.0) pg MCHC 27.3 L (31.0-35.0) g/dl RDW 16.5 H (11.0-16.0) % Plt Count 340 D (160-400) X10*3/uL MPV 8.7 L (9.4-12.3) fL Immature Gran % (Auto) 0.9 H (0.0-0.4) % Neut % (Auto) 78.7 H (45-73) % Lymph % (Auto) 13.4 L (20-40) % Faulk % (Auto) 5.6 (2-11) % Eos % (Auto) 0.8 (0-4) % Baso % (Auto) 0.6 (0-2) % Lymph # (Auto) 2.1 (1.2-4.9) X10*3/uL Faulk # (Auto) 0.9 (0.1-1.2) X10*3/uL Eos # (Auto) 0.1 (0.0-0.4) X10*3/uL Baso # (Auto) 0.1 (0.0-0.2) X10*3/uL Abs Immat Gran (auto) 0.15 H (0.00-0.03) X10*3/uL Absolute Neuts (auto) 12.5 H (2.0-8.3) x10*3/uL Absolute Nucleated RBC 0.020 H (0.0-0.012) X10*3/uL Nucleated RBC % (auto) 0.1 (0.0-0.2) /100WBC Sodium 142 (135-145) mmol/L Potassium 4.2 (3.3-5.1) mmol/L Chloride 101 (96-108) mmol/L Carbon Dioxide 34 H (22-29) mmol/L Anion Gap 11 L (12-20) BUN 14 (9-16) mg/dL Creatinine 0.82 (0.5-1.4) mg/dL Estim Creat Clear Calc 74.6 Estimated GFR > 60 Random Glucose 128 H (60-115) mg/dL Calcium 9.9 (8.4-10.2) mg/dL Total Bilirubin 0.2 (0.0-1.0) mg/dL AST 27 (5-31) U/L ALT 26 (0-31) U/L Alkaline Phosphatase 131 H (39-117) U/L Troponin I High Sens 18.0 H (<3.5-17.0) ng/L B-Natriuretic Peptide 154 H (<100) pg/mL Total Protein 6.5 (6.5-8.0) g/dL Albumin 3.2 L (3.5-5.0) g/dL Independent Interpretation I performed an independent interpretation of an: EKG and Plain X-Ray Radiology Impression Discussion of test interpretation with radiology: I have reviewed the radiologist's reading. Independent Historian Clinical information obtained from an independent historian. History obtained from or confirmed by: Other After workup of family daughter and son did arrive patient has normal workup the [place] for sending her home I will give a dose of Lasix before she leaves for External Record Review External record reviewed: Inpatient record and Office record Discharge Plan Discharge Clinical Impression: Congestive heart failure, Bilateral edema of lower extremity Patient Disposition: Home, Self-Care Instructions: Leg Edema (ED), Fluid Restriction (ED), Heart Failure (DC) Additional Instructions: You were seen today for lower extremity edema and difficulty breathing. Your oxygen saturation and vitals are all stable. You had an x-ray and labs are drawn negative. Your safe to go home at this time if you feel any worsening shortness of breath fever or any other concerns please do not hesitate to come back to emergency department. Prescriptions: No Action lisinopril 20 mg tablet 20 mg PO DAILY tramadol 50 mg tablet 50 mg PO TID PRN (Reason: Pain) furosemide 80 mg tablet 80 mg PO DAILY nystatin 100,000 unit/mL Suspension 400,000 unit PO QID Qty: 300 0RF diltiazem HCl [Cardizem CD] 120 mg Capsule,Extended Release 24hr 120 mg PO DAILY Qty: 30 0RF Protocol: Hold for SBP/HR < HOLD for SBP < : 90 HOLD for HR < : 60 digoxin 125 mcg (0.125 mg) Tablet 0.125 mg PO DAILY Qty: 3 0RF Rx Instructions: finish on 04/08 Eliquis 5 mg Tablet 5 mg PO BID Qty: 60 0RF multivitamin Tablet 1 tab PO DAILY prednisone 20 mg tablet 20 mg PO DAILY Qty: 4 0RF azithromycin 250 mg tablet 250 mg PO DAILY 3 Days Qty: 3 0RF
[2023-07-06 16:43] LABS: MANUAL DIFF FLAG NO
[2023-07-06 16:45] LABS: Basophils Absolute Auto 0.1 X10*3/uL (0.0-0.2); Basophils Percent Auto 0.6 % (0-2); Eosinophils Absolute Auto 0.1 X10*3/uL (0.0-0.4); Eosinophils Percent Auto 0.8 % (0-4); Hemoglobin 8.2 g/dl (12.0-16.0); Imm Gran Abs Auto 0.15 X10*3/uL (0.00-0.03); Imm Gran Pct Auto 0.9 % (0.0-0.4); Lymphocytes Absolute Auto 2.1 X10*3/uL (1.2-4.9); Lymphocytes Percent Auto 13.4 % (20-40); Mean Corpuscular HGB Conc 27.3 g/dl (31.0-35.0); Mean Corpuscular Hemoglobin 24.3 pg (27.0-33.0); Mean Corpuscular Volume 88.8 fL (80.0-98.0); Mean Platelet Volume 8.7 fL (9.4-12.3); Monocytes Absolute Auto 0.9 X10*3/uL (0.1-1.2); Monocytes Percent Auto 5.6 % (2-11); NRBC Pct Auto 0.1 /100WBC (0.0-0.2); Neutrophils Absolute Auto 12.5 x10*3/uL (2.0-8.3); Neutrophils Percent Auto 78.7 % (45-73); Platelet Count 340 X10*3/uL (160-400); Red Blood Count 3.38 X10*6/uL (4.20-5.50); Red Cell Distribution Width 16.5 % (11.0-16.0); White Blood Count 15.9 X10*3/uL (4.8-10.8)
[2023-07-06 16:59] LABS: Alanine Aminotransferase 26 U/L (0-31); Albumin Level 3.2 g/dL (3.5-5.0); Alkaline Phosphatase 131 U/L (39-117); Anion Gap 11 (12-20); Aspartate Amino Transferase 27 U/L (5-31); Bilirubin Total 0.2 mg/dL (0.0-1.0); Blood Urea Nitrogen 14 mg/dL (9-16); Calcium 9.9 mg/dL (8.4-10.2); Carbon Dioxide 34 mmol/L (22-29); Chloride 101 mmol/L (96-108); Creatinine Clr Calc Pharmacy 74.6; Estimated Glomerular Filt Rate > 60; Glucose Random 128 mg/dL (60-115); Potassium 4.2 mmol/L (3.3-5.1); Sodium 142 mmol/L (135-145); Total Protein 6.5 g/dL (6.5-8.0)
[2023-07-06 17:04] LABS: B Type Natriuretic Peptide 154 pg/mL (<100)
[2023-07-06] MEDS: Furosemide 100 MG/10 ML VIAL 80 MG IVPUSH (17:30)
[2023-07-06 17:31] VITALS: BP 141/56; PULSE 90; RESP 18; O2SAT 95
== END 2023-07-06 17:59 | disposition home or self-care (01) ==
PROVIDERS: Emergency Provider Student in an Organized Health Care Education/Training Program; PCP Internal Medicine
DX: R06.02 Shortness of breath (principal); R60.0 Localized edema; I50.9 Heart failure, unspecified; R07.89 Other chest pain; Z79.899 Other long term (current) drug therapy; Z87.891 Personal history of nicotine dependence
CPT/HCPCS: 36415; 71045; 80053; 83880; 84484; 85025; 93005; 96374; 99284; J1940

== ENCOUNTER 2023-08-18 11:40 | Inpatient (IN) | payer MEDICARE, OTHER, SELFPAY ==
[2023-08-18] VITALS (7 sets, daily range): BP systolic 103–170; BP diastolic 47–88; PULSE 70–89; RESP 19–21; TEMP 36.9–37.2; O2SAT 89–100; BMI 41.2; BMI 39.8
--- NOTE | ~2023-08-18 | XR_ITS ---
EXAMINATION: XR CHEST CLINICAL INFORMATION: SOB, weakness COMPARISON: Chest 07/06/2023 TECHNIQUE: Frontal view of the chest was obtained. FINDINGS: The lungs are expanded with patchy opacity left lung base retrocardiac area. Bilateral diffuse increased markings are noted similar to previous study. The heart size is normal. Pulmonary vascularity is prominent. No gross bony abnormality seen. XR/XR chest 1V IMPRESSION: Left lower lobe retrocardiac opacity question infiltrate versus atelectasis. Prominent bilateral interstitial markings are unchanged to 07/06/2023 Prominent bilateral pulmonary vasculature question underlying congestion.
--- NOTE | ~2023-08-18 | CT_ITS ---
EXAMINATION: CT CHEST WITH IV CONTRAST CT ABDOMEN AND PELVIS WITH IV CONTRAST CLINICAL INFORMATION: History of cough, hypoxia and rectal bleeding. History of lung carcinoma. COMPARISON: CT chest, abdomen and pelvis from 03/29/2023. TECHNIQUE: Multidetector CT imaging examination of the chest, abdomen and pelvis was performed with intravenous administration of 85 mL Omnipaque 350. Axial images are displayed at 0.6 mm and 5 mm slice thickness. Coronal and sagittal reformatted images were generated at the technologist's workstation and submitted for review. This CT examination was performed using dose optimization techniques as appropriate, variously including the following: *Automated exposure control *Adjustment of mA and/or kV according to patient size (this includes techniques or standardized protocols for targeted exams where dose is matched to indication/reason for exam; i.e. extremities or head) *Use of iterative reconstruction technique DLP: 1442 mGy-cm FINDINGS: CHEST - LUNGS AND PLEURA: Moderate centrilobular emphysema. Bronchial chung are chronically, diffusely thickened. Frothy secretions along the wall of the bronchus intermedius. Mild atelectasis in the right middle lobe and posterior right lower lobe. The left lower lobe has become completely collapsed with probable superimposed consolidation and air bronchograms. There are stable pleural-parenchymal opacities at the left lung apex; the stability suggests that this likely represents chronic fibrotic change. No pleural effusion or pneumothorax. CARDIOVASCULAR: The cardiac chambers are normal in size. There is lipomatous hypertrophy of the interatrial septum. No pericardial effusion. Severe atherosclerotic calcification of coronary arteries is present. There is atherosclerosis of the thoracic aorta without aneurysm or dissection. Pulmonary arteries are unremarkable. MEDIASTINUM/LOWER NECK: No mediastinal mass. Small 0.5 cm rim calcified nodule of the right thyroid lobe. No clinically significant nodule. No thyroid imaging follow-up recommended. The esophagus is unremarkable. LYMPHATICS: No pathologic sized axillary, hilar or mediastinal lymph nodes. CHEST WALL/BONES OF THORAX: Large body habitus. No acute abnormalities within the degenerated thoracic spine. No aggressive osseous lesions. ABDOMEN AND PELVIS - LOCALIZER IMAGES: Obese body habitus. No dilated bowel loops. Mild levocurvature of the degenerated lumbar spine. HEPATOBILIARY: Liver has density of 38-44 HU on these contrast-enhanced images which suggests likelihood of steatosis. No focal lesion or intrahepatic ductal dilatation. Gallbladder is surgically absent. PANCREAS: Mildly atrophied and otherwise unremarkable. SPLEEN: Normal. ADRENAL GLANDS: Normal. KIDNEYS AND URETERS: Kidneys are normal in size. Simple cysts of each kidney. No renal imaging follow-up is recommended for simple cysts. No nephrolithiasis or hydroureteronephrosis. BOWEL AND PERITONEUM: The stomach is underdistended. No dilated bowel loops. No focal bowel wall thickening, mesenteric fat stranding or free fluid. The appendix is normal. There are diverticula of the sigmoid colon without evidence of diverticulitis. The rectum and anal canal are unremarkable. ABDOMINAL WALL: Unremarkable. VESSELS: There is atherosclerotic calcification of the abdominal aorta and iliac arteries. No abdominal aorta aneurysm or dissection. Stable 0.8 cm rim calcified aneurysm at the splenic hilum. LYMPH NODES: No pathologic sized lymph nodes in the abdomen or pelvis. No inguinal lymphadenopathy. BLADDER AND PELVIC VISCERA: Urinary bladder is normal. Status post hysterectomy. No adnexal mass or pelvic free fluid. MUSCULOSKELETAL: Multilevel severe degenerative disc disease and facet osteoarthritis of lumbar spine. Chronic mild vertebral subluxations with slight retrolisthesis at L1-L2, L2-L3 and L3-L4 and approximately 0.3 cm anterolisthesis at L4-L5 and L5-S1. Associated multilevel spinal canal and neural foraminal stenosis of the degenerated lumbar spine. CT/CT abdomen pelvis w IV con IMPRESSION: * Compared to 03/29/2023, interval development of complete collapse of the left lower lobe. The opacified left lower lobe likely represents combination of atelectasis and consolidation. No pleural effusion. * Moderate pulmonary emphysema and diffusely thickened bronchial chung. Correlate for any clinical symptoms/signs of active bronchitis. * Atherosclerotic disease of coronary arteries and thoracoabdominal aorta without aortic aneurysm. * No specific source of rectal bleeding is identified. There is no evidence of enteritis, colitis or acute diverticulitis.
--- NOTE | 2023-08-18 12:02 | ECG_ITS ---
Test Reason : weakness Blood Pressure : / mmHG Vent. Rate : 092 BPM Atrial Rate : 000 BPM P-R Int : 000 ms QRS Dur : 080 ms QT Int : 340 ms P-R-T Axes : 000 -25 068 degrees QTc Int : 420 ms Artifact in tracing Normal sinus rhythm with PACs Nonspecific ST abnormality Abnormal ECG When compared with ECG of 06-JUL-2023 15:45, Premature atrial complexes Present Referred By: Franci Templeton Electronically Signed By:Yang Kent
--- NOTE | 2023-08-18 12:21 | ED_ITS ---
HPI - Recheck/Abnormal Lab/Rx General Chief Complaint: Recheck/Abnormal Lab/Rx Stated Complaint: HEADACHE DIZZY Time Seen by Provider: 08/18/23 12:19 Source: patient, family and EMS Mode of arrival: EMS Limitations: other (poOr history) History of Present Illness HPI narrative: This is a 72-year-old female history of COPD, lung cancer, AFib with rapid ventricular response anticoagulated on Eliquis common carpal tunnel presenting to the emergency department with concerns of fatigue, malaise, weakness, headache, dizziness in abnormal labs from a tree was told her hemoglobin was low. Family is here requesting a transfusion. Denies chest pain, shortness of breath, vision changes, dizziness, head trauma. Related Data Home Medications Medication Instructions Recorded Confirmed furosemide 80 mg tablet 80 mg PO DAILY 03/15/23 04/07/23 lisinopril 20 mg tablet 20 mg PO DAILY 03/15/23 04/07/23 tramadol 50 mg tablet 50 mg PO TID PRN Pain 03/15/23 04/07/23 multivitamin 1 tab PO DAILY 04/07/23 04/07/23 Previous Rx's Medication Instructions Recorded apixaban 5 mg tablet (Eliquis) 5 mg PO BID #60 tabs 04/05/23 digoxin 125 mcg (0.125 mg) tablet 0.125 mg PO DAILY #3 tabs 04/05/23 diltiazem HCl 120 mg 120 mg PO DAILY #30 caps 04/05/23 capsule,extended release 24 hr (Cardizem CD) nystatin 100,000 unit/mL oral 400,000 unit (4 mL) PO QID #300 mL 04/05/23 suspension azithromycin 250 mg tablet 250 mg PO DAILY 3 days #3 tabs 04/10/23 prednisone 20 mg tablet 20 mg PO DAILY #4 tabs 04/10/23 Allergies Allergy/AdvReac Type Severity Reaction Status Date / Time Penicillin Allergy Unknown rash Uncoded 03/15/23 16:50 Review of Systems 2 Review of Systems: Constitutional : No Weight loss, No Fever, No Chills, + Fatigue, + Malaise ENT/Mouth : No sore throat, No Rhinorrhea Eyes: No Eye Pain, No Swelling, No Redness Cardiovascular : No Chest Pain, No SOB, No Dyspnea on Exertion, No Orthopnea, No Edema, No Palpitations Respiratory : No Cough, No Sputum, No Wheezing Gastrointestinal : No Nausea, No Vomiting, No Diarrhea, No Constipation, No abdominal Pain, No Hematochezia, No Melena Genitourinary : No Dysuria, No Urinary Frequency, No Hematuria, Musculoskeletal : No joint pain, No Myalgias, No Joint Swelling Skin : No Skin Lesions, No rash Neuro : + Weakness, No Numbness, + Dizziness, + Headache Psych : No Anxiety/Panic, No Depression All other systems reviewed and are negative Yes all other systems are reviewed and are negative [facility] Past Medical History Attestation statement: The following information was validated with the patient. Source: old records reviewed and nursing notes reviewed Medical History Atrial fibrillation with rapid ventricular response Constipation Morbid obesity Lung cancer Pneumonia COPD with acute exacerbation COPD (chronic obstructive pulmonary disease) Carpal tunnel syndrome, left Nerve pain High blood pressure Surgical History H/O: hysterectomy Social History Social History Household Members: Spouse Housing: House Do you presently have visiting nurse or other home services: Yes Alcohol intake: never Patient Tobacco Use Status: Former Tobacco user Tobacco use type: Cigarette Cigarette Packs Per Day: 1 Cigarettes Per Day: 20.0 e-Cigarette/Vaping Use: Never Used Second Hand Smoke Exposure: No Advance Directives: Yes Advance Directives on File: Yes Advance Directives Date on File: 03/23/23 service: No Current occupational status: retired Current occupation: left handed Physical Exam 2 Vital Signs: Vital Signs: Last Vital Signs Temp 98.4 F 08/18/23 11:51 Pulse 89 08/18/23 11:51 Resp 20 08/18/23 11:51 BP 110/47 L 08/18/23 11:51 Pulse Ox 89 L 08/18/23 11:51 O2 Del Method Nasal Cannula 08/18/23 11:51 Oxygen Flow Rate 5 08/18/23 11:51 BMI result Body Mass Index 41.2 Patient hypoxic and hypotensive Appearance: Alert.? Oriented X3.? No acute distress.? Head: Normocephalic, atraumatic, no step-offs or deformities Eyes: Pupils equal, round and reactive to light. CVS: Normal heart rate and rhythm.? Pulses normal.? Respiratory: No respiratory distress.? Breath sounds normal.? Abdomen: Soft and nontender.? Skin: Skin warm and dry.? Normal skin color.? Normal skin turgor.? Rectal exm: JOBYAna Maddox PA_S certified nurse midwife. Extremities: No lower extremity edema.? No calf ttp. Global weakness Back: No midline tenderness, no C-spine tenderness, full range of motion, no CVA tenderness bilaterally Neuro: Oriented X 3.? No motor deficit.? No sensory deficit. CN 2-12 intact . Normal [id number] negative Romberg pronator drift. Course Reevaluation(s) Reevaluation #1: CBC with leukocytosis 13.7 and a normocytic anemia noted, patient does have history of anemia this appears to be around her baseline. Interestingly enough there was an OBS done at the bedside which appeared grossly positive however there was 1 done that was sent down to the lab which was negative both of these samples were obtained at different times. Concerns for possible slow GI bleed or recent rectal bleeding. No need for emergent transfusion at this time. Chemistry with low potassium IV potassium ordered. Carbon dioxide slid level elevated 43, patient on OxyMask. Lactic acid negative. Patient is noted to have elevated troponin, not experiencing chest pain at this time however will repeat at 03:00 o'clock, EKG is nonischemic is noted to have a fib. Patient is actually noted to be positive for RSV. Likely contributing to patient's hypoxia. Patient is noted to have a left lower lobe retrocardiac opacity versus infiltrate, based off patient history, physical exam will start ceftriaxone as a throughout. Plan for hospital admission. Time: 14:03 Medical Decision Making Medical Decision Making [facility] Narrative: 72-year-old female presents with abnormal labs, fatigue, malaise, dizziness, headache coming from [facility] no acute findings. Likely patient is hypoxic and hypotensive secondary to acute blood loss anemia unlikely from sepsis/bacterial infection. Will rule out metabolic derangements. Unlikely intracranial hemorrhage, stroke, posterior stroke. Secondary to poor perfusion/acute blood loss anemia. Unlikely pneumonia, UTI however will rule out. Will rule out viral illness due to hypoxia Plan at this time labs, imaging, urine Differential Diagnosis Differential Diagnoses: The differential diagnosis associated with the presentation includes Likely patient is hypoxic and hypotensive secondary to acute blood loss anemia unlikely from sepsis/bacterial infection. Will rule out metabolic derangements. Unlikely intracranial hemorrhage, stroke, posterior stroke. Secondary to poor perfusion/acute blood loss anemia. Unlikely pneumonia, UTI however will rule out. Will rule out viral illness due to hypoxia Admission/Observation Consideration of admission/observation: Escalation of care including admission/observation considered Likely Consult Healthcare Provider Management of the patient was discussed with: Hospitalist Lab Data MDM Lab Attestation statement: I reviewed the patient's lab results. 08/18/23 12:16 08/18/23 12:16 Labs: Lab Results 08/18/23 08/18/23 08/18/23 Range/Units 12:16 12:17 12:19 WBC 13.7 H (4.8-10.8) X10*3/uL RBC 3.35 L (4.20-5.50) X10*6/uL Hgb 7.4 L (12.0-16.0) g/dl Hct 28.0 L (37.0-47.0) % MCV 83.6 (80.0-98.0) fL MCH 22.1 L (27.0-33.0) pg MCHC 26.4 L (31.0-35.0) g/dl RDW 18.7 H (11.0-16.0) % Plt Count 443 H (160-400) X10*3/uL MPV 8.8 L (9.4-12.3) fL Immature Gran % (Auto) 1.2 H (0.0-0.4) % Neut % (Auto) 76.4 H (45-73) % Lymph % (Auto) 11.6 L (20-40) % [place] % (Auto) 9.0 (2-11) % Eos % (Auto) 1.1 (0-4) % Baso % (Auto) 0.7 (0-2) % Lymph # (Auto) 1.6 (1.2-4.9) X10*3/uL [place] # (Auto) 1.2 (0.1-1.2) X10*3/uL Eos # (Auto) 0.2 (0.0-0.4) X10*3/uL Baso # (Auto) 0.1 (0.0-0.2) X10*3/uL Abs Immat Gran (auto) 0.16 H (0.00-0.03) X10*3/uL Absolute Neuts (auto) 10.4 H (2.0-8.3) x10*3/uL Absolute Nucleated RBC 0.080 H (0.0-0.012) X10*3/uL Nucleated RBC % (auto) 0.6 H (0.0-0.2) /100WBC PT 20.5 H D (11.1-13.3) SEC INR 1.7 H (0.9-1.1) APTT 31.2 (26.0-36.4) SEC VBG pH (7.32-7.43) VBG pCO2 mmHg VBG pO2 mmHg VBG HCO3 (22-26) mmol/L VBG O2 Saturation % VBG Base Excess mmol/L Sodium 140 (135-145) mmol/L Potassium 3.0 L D (3.3-5.1) mmol/L Chloride 89 L (96-108) mmol/L Carbon Dioxide 43 H* (22-29) mmol/L Anion Gap 11 L (12-20) BUN 14 (9-16) mg/dL Creatinine 1.23 (0.5-1.4) mg/dL Estim Creat Clear Calc 48.4 Estimated GFR 43 Random Glucose 139 H (60-115) mg/dL Lactic Acid (0.5-2.0) mmol/L Calcium 9.3 (8.4-10.2) mg/dL Magnesium 2.1 (1.6-2.6) mg/dL Total Bilirubin 0.4 (0.0-1.0) mg/dL AST 28 (5-31) U/L ALT 16 (0-31) U/L Alkaline Phosphatase 134 H (39-117) U/L Troponin I High Sens 26.8 H (<3.5-17.0) ng/L B-Natriuretic Peptide 202 H (<100) pg/mL Total Protein 7.1 (6.5-8.0) g/dL Albumin 3.0 L (3.5-5.0) g/dL Stool Occult Blood (NEGATIVE) Influenza Type A (PCR) NEGATIVE (Negative) Influenza Type B (PCR) NEGATIVE (Negative) RSV RNA Qual (PCR) POSITIVE A (Negative) SARS-CoV-2 RNA (RT-PCR) NEGATIVE (Negative) Blood Type Antibody Screen Crossmatch See Detail 08/18/23 08/18/23 Range/Units 12:29 13:03 WBC (4.8-10.8) X10*3/uL RBC (4.20-5.50) X10*6/uL Hgb (12.0-16.0) g/dl Hct (37.0-47.0) % MCV (80.0-98.0) fL MCH (27.0-33.0) pg MCHC (31.0-35.0) g/dl RDW (11.0-16.0) % Plt Count (160-400) X10*3/uL MPV (9.4-12.3) fL Immature Gran % (Auto) (0.0-0.4) % Neut % (Auto) (45-73) % Lymph % (Auto) (20-40) % [place] % (Auto) (2-11) % Eos % (Auto) (0-4) % Baso % (Auto) (0-2) % Lymph # (Auto) (1.2-4.9) X10*3/uL [place] # (Auto) (0.1-1.2) X10*3/uL Eos # (Auto) (0.0-0.4) X10*3/uL Baso # (Auto) (0.0-0.2) X10*3/uL Abs Immat Gran (auto) (0.00-0.03) X10*3/uL Absolute Neuts (auto) (2.0-8.3) x10*3/uL Absolute Nucleated RBC (0.0-0.012) X10*3/uL Nucleated RBC % (auto) (0.0-0.2) /100WBC PT (11.1-13.3) SEC INR (0.9-1.1) APTT (26.0-36.4) SEC VBG pH 7.46 H (7.32-7.43) VBG pCO2 78 mmHg VBG pO2 35 mmHg VBG HCO3 56 H (22-26) mmol/L VBG O2 Saturation 50.0 % VBG Base Excess 28.3 mmol/L Sodium (135-145) mmol/L Potassium (3.3-5.1) mmol/L Chloride (96-108) mmol/L Carbon Dioxide (22-29) mmol/L Anion Gap (12-20) BUN (9-16) mg/dL Creatinine (0.5-1.4) mg/dL Estim Creat Clear Calc Estimated GFR Random Glucose (60-115) mg/dL Lactic Acid 1.7 (0.5-2.0) mmol/L Calcium (8.4-10.2) mg/dL Magnesium (1.6-2.6) mg/dL Total Bilirubin (0.0-1.0) mg/dL AST (5-31) U/L ALT (0-31) U/L Alkaline Phosphatase (39-117) U/L Troponin I High Sens (<3.5-17.0) ng/L B-Natriuretic Peptide (<100) pg/mL Total Protein (6.5-8.0) g/dL Albumin (3.5-5.0) g/dL Stool Occult Blood NEGATIVE (NEGATIVE) Influenza Type A (PCR) (Negative) Influenza Type B (PCR) (Negative) RSV RNA Qual (PCR) (Negative) SARS-CoV-2 RNA (RT-PCR) (Negative) Blood Type B Negative Antibody Screen NEGATIVE Crossmatch Critical Care Time Critical Care Time Critical Care Time: Yes Total Critical Care Time: 45 Attestation: I attest to this time spent taking care of the patient, obtaining history, physical, reviewing labs, imaging, speaking to my attending, speaking to specialist. Discharge Plan Discharge Clinical Impression: Pneumonia, Respiratory syncytial virus (RSV), Normocytic anemia Prescriptions: No Action lisinopril 20 mg tablet 20 mg PO DAILY tramadol 50 mg tablet 50 mg PO TID PRN (Reason: Pain) furosemide 80 mg tablet 80 mg PO DAILY nystatin 100,000 unit/mL Suspension 400,000 unit PO QID Qty: 300 0RF diltiazem HCl [Cardizem CD] 120 mg Capsule,Extended Release 24hr 120 mg PO DAILY Qty: 30 0RF Protocol: Hold for SBP/HR < HOLD for SBP < : 90 HOLD for HR < : 60 digoxin 125 mcg (0.125 mg) Tablet 0.125 mg PO DAILY Qty: 3 0RF Rx Instructions: finish on 04/08 Eliquis 5 mg Tablet 5 mg PO BID Qty: 60 0RF multivitamin Tablet 1 tab PO DAILY prednisone 20 mg tablet 20 mg PO DAILY Qty: 4 0RF azithromycin 250 mg tablet 250 mg PO DAILY 3 Days Qty: 3 0RF
[2023-08-18 12:24] LABS: MANUAL DIFF FLAG NO
[2023-08-18 12:26] LABS: Basophils Absolute Auto 0.1 X10*3/uL (0.0-0.2); Basophils Percent Auto 0.7 % (0-2); Eosinophils Absolute Auto 0.2 X10*3/uL (0.0-0.4); Eosinophils Percent Auto 1.1 % (0-4); Hemoglobin 7.4 g/dl (12.0-16.0); Imm Gran Abs Auto 0.16 X10*3/uL (0.00-0.03); Imm Gran Pct Auto 1.2 % (0.0-0.4); Lymphocytes Absolute Auto 1.6 X10*3/uL (1.2-4.9); Lymphocytes Percent Auto 11.6 % (20-40); Mean Corpuscular HGB Conc 26.4 g/dl (31.0-35.0); Mean Corpuscular Hemoglobin 22.1 pg (27.0-33.0); Mean Corpuscular Volume 83.6 fL (80.0-98.0); Mean Platelet Volume 8.8 fL (9.4-12.3); Monocytes Absolute Auto 1.2 X10*3/uL (0.1-1.2); NRBC Pct Auto 0.6 /100WBC (0.0-0.2); Neutrophils Absolute Auto 10.4 x10*3/uL (2.0-8.3); Neutrophils Percent Auto 76.4 % (45-73); Platelet Count 443 X10*3/uL (160-400); Red Blood Count 3.35 X10*6/uL (4.20-5.50); Red Cell Distribution Width 18.7 % (11.0-16.0); White Blood Count 13.7 X10*3/uL (4.8-10.8)
--- NOTE | 2023-08-18 12:30 | PC.RT ---
pt was on 4 ln/c changed to 10 liters oxymask due to sats in mid low 80's. Sats now at 94%
[2023-08-18 12:31] LABS: INTERNATIONAL NORM RATIO 1.7 (0.9-1.1); Prothrombin Time 20.5 SEC (11.1-13.3)
[2023-08-18 12:34] LABS: Partial Thromboplastin Time 31.2 SEC (26.0-36.4)
[2023-08-18 12:35] LABS: Venous Blood Gas Refer to POC result
[2023-08-18 12:36] LABS: VBG Base Excess 28.3 mmol/L; VBG HCO3 56 mmol/L (22-26); VBG pCO2 78 mmHg; VBG pH 7.46 (7.32-7.43); VBG pO2 35 mmHg
[2023-08-18 12:45] LABS: Alanine Aminotransferase 16 U/L (0-31); Alkaline Phosphatase 134 U/L (39-117); Anion Gap 11 (12-20); Aspartate Amino Transferase 28 U/L (5-31); B Type Natriuretic Peptide 202 pg/mL (<100); Bilirubin Total 0.4 mg/dL (0.0-1.0); Blood Urea Nitrogen 14 mg/dL (9-16); Calcium 9.3 mg/dL (8.4-10.2); Carbon Dioxide 43 mmol/L (22-29); Chloride 89 mmol/L (96-108); Creatinine Clr Calc Pharmacy 48.4; Estimated Glomerular Filt Rate 43; Glucose Random 139 mg/dL (60-115); Magnesium 2.1 mg/dL (1.6-2.6); Sodium 140 mmol/L (135-145); Total Protein 7.1 g/dL (6.5-8.0)
[2023-08-18 12:46] LABS: Troponin-I High Sensitivity 26.8 ng/L (<3.5-17.0)
[2023-08-18 13:08] LABS: Influenza A PCR NEGATIVE (Negative); Influenza B PCR NEGATIVE (Negative); Resp Syncy Virus RNA Qual PCR POSITIVE (Negative); SARS COV2 PCR INHOUSE NEGATIVE (Negative)
[2023-08-18 13:16] LABS: OBS Int Ctl Valid YES; OBS1 NEGATIVE (NEGATIVE)
[2023-08-18 13:24] LABS: Lactic Acid 1.7 mmol/L (0.5-2.0)
[2023-08-18] MEDS: Potassium Chloride/H20 20 MEQ/100 ML PIGGYBACK 100 MEQ IV (14:19)
[2023-08-18] MEDS: methylPREDNISolone Sod Succ 125 MG/2 ML VIAL IVPUSH (15:42)
[2023-08-18] MEDS: Morphine Sulfate 2 MG/ML CARTRIDGE IVPUSH (15:43)
[2023-08-18] MEDS: cefTRIAXone sodium 1 GM in 0.9 % Sodium Chloride 50 ML IV (15:46)
--- NOTE | 2023-08-18 15:53 | MHC.CM.ED ---
Received notification from [facility]NAW[facility] that they have been following patient at [facility]. Patient is currently in ER and appears she will be admitted. Referral made to [facility]NAWAY in [facility] so they can follow for d/c needs.
--- NOTE | 2023-08-18 16:30 | PC.NURSE ---
patient put put 1100ml urine using purewick system.
--- NOTE | 2023-08-18 16:49 | PC.NURSE ---
patient IV infiltrated while in cat scan, warm compress plaed over IV site. patient had new iv placed in the right lateral AC #20 by this RN
--- NOTE | 2023-08-18 16:53 | PHA.MEDREC ---
Pharmacy Consult ? Medication Reconciliation Pharmacy has completed the medication reconciliation. Med rec was done using list from [facility] and pharmacy claim history.
[2023-08-18] MEDS: Azithromycin 500 MG in 0.9 % Sodium Chloride 250 ML 125 MG IV (17:20)
--- NOTE | 2023-08-18 18:51 | P.HPHOSP_ITS ---
History of Present Illness Date of Service: 08/18/23 Attending physician on admission: Sherman Torres Chief Complaint: Abnormal labs Pt is a 72-year-old female with a PMH significant for?chronic atrial fibrillation on Eliquis, HFpEF, insulin-dependent diabetes type 2, COPD on 4 L home O2, lung cancer, and GERD who presents to the ED for evaluation of abnormal labs. Pt is not the best historian and HPI supplemented by son who is at bedside. Pt apparently has been experiencing significant shortness breath and intermittent hypoxia since March when she was found to have a collapsed lower left lung. Was placed on 4 L home O2, and has been in and out of hospitals since then. 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 Patient was a resident of [facility] where labs were drawn and indicated she had an H&H of 6.7/25.0. Pt then came to the ED for possible transfusion. In the ED patient's H&H was noted to be 7.4/28.0 and transfusion was held. Stool was initially positive in the ED at bedside, but negative when a sample was sent to the lab. Pt complains of chronic SOB, non- productive cough, and fatigue that she says are all around baseline though perhaps slightly worse. Chronic lower leg edema also slightly worse. Denies melena, hematochezia. In the ED pt was afebrile, tachypneic up to 21, with soft BP as low as 110/47. Patient presented setting as low as 83% on RA, eventually placed on OxyMask. Labs were significant for chronically elevated WBC 13.7, normocytic anemia of 7.4/28.0, potassium 3.0, chloride 89, carbon dioxide 43, VBG pH 7.46 with bicarb 56. Lactic acid WNL at 1.7. Stool negative for occult blood. Patient tested positive for RSV. CXR showed left lower lobe retrocardiac opacity question infiltrate versus atelectasis. Also found prominent bilateral pulmonary vascular question of underlying congestion. CT of chest with contrast found complete collapse of left lower lobe with opacified left lower lobe likely representing combination of atelectasis and consolidation. Did not show any pleural effusion. Also found moderate pulmonary emphysema and diffusely thickened bronchial wall with question of active bronchitis. CT of abdomen and pelvis found no source of rectal bleeding: No evidence of enteritis, colitis, or acute diverticulitis. EKG demonstrated atrial fibrillation without significant ischemic changes. Pt was treated with potassium chloride, Solu-Medrol, morphine sulfate, ceftriaxone, and azithromycin. Pt will be admitted to the hospital for treatment further evaluation of acute hypoxic respiratory failure in the setting of RSV infection. Review of Systems 2 Review of Systems: Abnormal labs Chronic shortness of breath, worse than baseline Chronic nonproductive cough, worse than baseline Chronic lower leg edema, around baseline [facility] Medical History Atrial fibrillation with rapid ventricular response Constipation Morbid obesity Lung cancer Pneumonia COPD with acute exacerbation COPD (chronic obstructive pulmonary disease) Carpal tunnel syndrome, left Nerve pain High blood pressure Surgical History H/O: hysterectomy Social History Household Members: Spouse Housing: House Do you presently have visiting nurse or other home services: Yes Alcohol intake: never Patient Tobacco Use Status: Former Tobacco user Tobacco use type: Cigarette Cigarette Packs Per Day: 1 Cigarettes Per Day: 20.0 e-Cigarette/Vaping Use: Never Used Second Hand Smoke Exposure: No Advance Directives Date on File: 03/23/23 service: No Current occupational status: retired Current occupation: left handed Meds Allergies Allergy/AdvReac Type Severity Reaction Status Date / Time Penicillin Allergy Unknown rash Uncoded 03/15/23 16:50 Home Medications Medication Instructions Recorded Confirmed Last Taken Type tramadol 50 mg tablet 50 mg PO Q4H PRN Pain, Moderate 03/15/23 08/18/23 03/15/23 History apixaban 5 mg tablet (Eliquis) 5 mg PO BID@0800,2100 08/18/23 08/18/23 08/18/23 History ascorbic acid (vitamin C) 500 mg 500 mg PO DAILY@0800 08/18/23 08/18/23 08/18/23 History tablet bumetanide 2 mg tablet 4 mg PO DAILY@0800 08/18/23 08/18/23 08/18/23 History digoxin 125 mcg (0.125 mg) tablet 0.125 mg PO DAILY@0800 08/18/23 08/18/23 08/18/23 History diltiazem HCl 120 mg 120 mg PO DAILY@0800 08/18/23 08/18/23 08/18/23 History capsule,extended release 24 hr (Cardizem CD) gabapentin 300 mg capsule 600 mg PO QID 08/18/23 08/18/23 Unknown History insulin lispro 100 unit/mL 1 sliding scale dose subcut 08/18/23 08/18/23 Unknown History subcutaneous solution TIDAC@0800,1200,1800 ondansetron HCl 4 mg tablet 8 mg PO DAILY PRN Nausea 08/18/23 08/18/23 Unknown History polyethylene glycol 3350 17 17 g PO DAILY@0800 08/18/23 08/18/23 08/18/23 History gram/dose oral powder sennosides 8.6 mg tablet (senna) 17.2 mg PO BID@0800,2100 08/18/23 08/18/23 08/18/23 History thiamine HCl (vitamin B1) 100 mg 100 mg PO DAILY@0800 08/18/23 08/18/23 08/18/23 History tablet Physical Exam 2 Vital Signs and Narrative: Vital Signs: Last Vital Signs Temp 98.6 F 08/18/23 15:50 Pulse 75 08/18/23 15:50 Resp 21 H 08/18/23 15:50 BP 127/55 L 08/18/23 15:50 Pulse Ox 96 08/18/23 15:50 O2 Del Method Oxymask 08/18/23 15:50 O2 Flow Rate 14 08/18/23 15:50 Oxygen Flow Rate 5 08/18/23 11:51 BMI result Body Mass Index 41.2 Constitutional: Alert, somnolent, in mild respiratory distress. Mental Status: Oriented to person, place and time. Eyes: Pupils are equal, round, and reactive to light. Ear, Nose, and Throat: Oropharynx clear, mucous membranes moist. Ears and nose without deformities. Trachea midline. Respiratory: Clear to auscultation bilaterally though greatly diminished throughout. Lung sounds absent lower left. No wheezing, rales, or rhonchi. Cardiovascular: S1, S2 regular. No murmurs, rubs, or gallops. Gastrointestinal: Abdomen soft, non-tender, non-distended, obese. Normal bowel sounds. Neurologic: Cranial nerves II-XII are grossly intact bilaterally. No focal neurological deficits. Moves all extremities spontaneously. Skin: Warm, dry. Musculoskeletal: No cyanosis or clubbing. Extremities: 2+ bilateral pitting lower leg edema. Psychiatric: Normal mood and affect. Results Labs 08/18/23 12:16 08/18/23 12:16 Labs: Laboratory Results - last 24 hr 08/18/23 08/18/23 08/18/23 12:16 12:19 12:29 MCV 83.6 MCH 22.1 L MCHC 26.4 L RDW 18.7 H Plt Count 443 H MPV 8.8 L Immature Gran % (Auto) 1.2 H Neut % (Auto) 76.4 H Lymph % (Auto) 11.6 L [place] % (Auto) 9.0 Eos % (Auto) 1.1 Baso % (Auto) 0.7 Lymph # (Auto) 1.6 [place] # (Auto) 1.2 Eos # (Auto) 0.2 Baso # (Auto) 0.1 Abs Immat Gran (auto) 0.16 H Absolute Neuts (auto) 10.4 H Absolute Nucleated RBC 0.080 H Nucleated RBC % (auto) 0.6 H PT 20.5 H D INR 1.7 H APTT 31.2 VBG pH 7.46 H VBG pCO2 78 VBG pO2 35 VBG HCO3 56 H VBG O2 Saturation 50.0 VBG Base Excess 28.3 Anion Gap 11 L Estim Creat Clear Calc 48.4 Estimated GFR 43 Random Glucose 139 H Lactic Acid Calcium 9.3 Magnesium 2.1 Total Bilirubin 0.4 AST 28 ALT 16 Alkaline Phosphatase 134 H B-Natriuretic Peptide 202 H Total Protein 7.1 Albumin 3.0 L Stool Occult Blood Influenza Type A (PCR) NEGATIVE Influenza Type B (PCR) NEGATIVE RSV RNA Qual (PCR) POSITIVE A SARS-CoV-2 RNA (RT-PCR) NEGATIVE Blood Type Antibody Screen Crossmatch 08/18/23 13:03 MCV MCH MCHC RDW Plt Count MPV Immature Gran % (Auto) Neut % (Auto) Lymph % (Auto) [place] % (Auto) Eos % (Auto) Baso % (Auto) Lymph # (Auto) [place] # (Auto) Eos # (Auto) Baso # (Auto) Abs Immat Gran (auto) Absolute Neuts (auto) Absolute Nucleated RBC Nucleated RBC % (auto) PT INR APTT VBG pH VBG pCO2 VBG pO2 VBG HCO3 VBG O2 Saturation VBG Base Excess Anion Gap Estim Creat Clear Calc Estimated GFR Random Glucose Lactic Acid 1.7 Calcium Magnesium Total Bilirubin AST ALT Alkaline Phosphatase B-Natriuretic Peptide Total Protein Albumin Stool Occult Blood NEGATIVE Influenza Type A (PCR) Influenza Type B (PCR) RSV RNA Qual (PCR) SARS-CoV-2 RNA (RT-PCR) Blood Type B Negative Antibody Screen NEGATIVE Crossmatch See Detail Imaging Radiologist's Impressions: Impressions Chest X-Ray 08/18/23 12:15 IMPRESSION: Left lower lobe retrocardiac opacity question infiltrate versus atelectasis. Prominent bilateral interstitial markings are unchanged to 07/06/2023 Prominent bilateral pulmonary vasculature question underlying congestion. Abdomen/Pelvis CT 08/18/23 16:34 IMPRESSION: * Compared to 03/29/2023, interval development of complete collapse of the left lower lobe. The opacified left lower lobe likely represents combination of atelectasis and consolidation. No pleural effusion. * Moderate pulmonary emphysema and diffusely thickened bronchial chung. Correlate for any clinical symptoms/signs of active bronchitis. * Atherosclerotic disease of coronary arteries and thoracoabdominal aorta without aortic aneurysm. * No specific source of rectal bleeding is identified. There is no evidence of enteritis, colitis or acute diverticulitis. Chest CT 08/18/23 16:34 IMPRESSION: * Compared to 03/29/2023, interval development of complete collapse of the left lower lobe. The opacified left lower lobe likely represents combination of atelectasis and consolidation. No pleural effusion. * Moderate pulmonary emphysema and diffusely thickened bronchial cuhng. Correlate for any clinical symptoms/signs of active bronchitis. * Atherosclerotic disease of coronary arteries and thoracoabdominal aorta without aortic aneurysm. * No specific source of rectal bleeding is identified. There is no evidence of enteritis, colitis or acute diverticulitis. Assessment and Plan (1) Normocytic anemia: Status: Acute (2) Respiratory syncytial virus (RSV): Status: Acute Plan Pt is a 72-year-old female with a PMH significant for?chronic atrial fibrillation on Eliquis, HFpEF, insulin-dependent diabetes type 2, COPD on 4 L home O2, lung cancer, and GERD who presents to the ED for evaluation of abnormal labs. Pt will be admitted to the hospital for treatment further evaluation of acute hypoxic respiratory failure in the setting of RSV infection. Acute hypoxic respiratory failure in the setting of RSV infection Pt with increased fatigue, SOB, non-productive cough for the past few days Pt satting at 83% on home 4L NC; tested positive for RSV Will treat with Duonebs, Solu-Medrol, guaifenesin Incentive spirometry Titrate supplemental O2>90, wean as tolerated Question of pneumonia Chest CT with interval change of complete collapse of left lower lobe, suggestive of combination of atelectasis and consolidation Pt empirically treated with ceftriaxone and azithromycin in the ED Will hold on additional antibiotics: pt afebrile, pt with chronic leukocytosis, consolidation appears chronic since late summer Consider checking CT scan at [facility] a few months ago Will check procalcitonin Continue abx tomorrow if indicated Anemia with question of GI bleed H&H 6.7/25.0 on 08/14/23, 7.4/28.0 today at time of presentation Stool tested positive for occult blood at bedside in ED, but negative at lab Pt declined blood transfusion since above 7.0 Pt denies melena or hematochezia Possibly secondary to iron deficiency: iron studies in July and August indicate low iron, normal TIBC, and low % saturation Pt currently not on iron supplementation Will start on p.o. iron Follow CBC, transfuse as indicated Hypokalemia Potassium 3.0 at time of presentation Pt given potassium IV in ED Follow BMP, supplement as warranted CHF Likely not in acute exacerbation 2+ bilateral lower leg pitting edema, BNP mildly elevated at 202 Will give one-time dose of Bumex IV Resume home bumex tomorrow Follow BMP Viral sepsis Pt positive for RSV; no indication at this time of bacterial infection WBCs chronically elevated; tachypnia secondary to hypoxia Lactic acid WNL at 1.7 Afib Will continue Eliquis for now since does not appear to be acute blood loss anemia Follow CBC and occult blood test tomorrow, hold if necessary Continue diltiazem, digoxin, Insulin dependent diabetes type 2 Neuropathy Continue gabapentin, tramadol Obesity class III Weight loss encouraged Full Code (though pt does not wish to have prolonged CPR) Attending:?Dr. Torres DVT Prophylaxis: On Eliquis Pt will require a hospitalization of at least two nights for treatment of?acute hypoxic respiratory failure in the setting RSV infection. Patient will be treated with IV steroids, breathing treatments, and close observation labs and respiratory status. Quality Stroke Does the patient have a stroke diagnosis?: No VTE Prior VTE?: No VTE Risk Level:: Medical - moderate - high VTE Device Contraindication: Treatment Not Indicated VTE Drug Contraindication: N/A - Med Ordered
--- NOTE | 2023-08-18 19:06 | PC.NURSE ---
care assumed of patient at this time.
--- NOTE | 2023-08-18 19:26 | MHC.EDTECH ---
This tech resumed care at 1900. PT vitals taken at this time. PT urine emptied and samples sent to lab.
[2023-08-18 19:32] LABS: Appearance Urine Cloudy; Color Urine Yellow; Glucose Urine UA Negative (Negative); Leukocyte Esterase Urine Negative (Negative); Nitrite Urine Negative (Negative); Urine Blood Negative (Negative); Urine Ketones Negative (Negative); Urine Protein Negative (Neg-Trace)
[2023-08-18 20:34] LABS: Procalcitonin 0.46 ng/mL
[2023-08-18] MEDS: Bumetanide 1 MG/4 ML VIAL IVPUSH (21:43)
[2023-08-18] MEDS: Gabapentin 300 MG CAPSULE 600 MG PO (21:43)
[2023-08-18] MEDS: traMADoL HCL 50 MG TABLET PO (21:43)
[2023-08-18] MEDS: diphenhydrAMINE HCL 50 MG/ML VIAL 25 MG IVPUSH (21:43)
[2023-08-18] MEDS: Ferrous Sulfate 324 MG TABLET.DR PO (21:43)
[2023-08-18] MEDS: methylPREDNISolone Sod Succ 40 MG/ML VIAL IVPUSH (22:00)
[2023-08-18] MEDS: 0.9 % Sodium Chloride Flush 3 ML SYRINGE IVFLUSH (23:11)
[2023-08-19] VITALS (11 sets, daily range): BP systolic 104–128; BP diastolic 53–59; PULSE 68–87; RESP 16–20; TEMP 36.1–37; O2SAT 90–98
[2023-08-19 07:37] LABS: Hematocrit 27.1 % (37.0-47.0); Hemoglobin 7.2 g/dl (12.0-16.0); Mean Corpuscular HGB Conc 26.6 g/dl (31.0-35.0); Mean Corpuscular Hemoglobin 21.8 pg (27.0-33.0); Mean Corpuscular Volume 81.9 fL (80.0-98.0); Mean Platelet Volume 9.9 fL (9.4-12.3); NRBC Pct Auto 0.7 /100WBC (0.0-0.2); Platelet Count 349 X10*3/uL (160-400); Red Blood Count 3.31 X10*6/uL (4.20-5.50); Red Cell Distribution Width 18.6 % (11.0-16.0); White Blood Count 18.8 X10*3/uL (4.8-10.8)
[2023-08-19 07:41] LABS: Glucose, Whole Blood 138 mg/dL (60-115)
[2023-08-19 07:45] LABS: Anion Gap 14 (12-20); Blood Urea Nitrogen 15 mg/dL (9-16); Calcium 8.9 mg/dL (8.4-10.2); Carbon Dioxide 37 mmol/L (22-29); Chloride 92 mmol/L (96-108); Creatinine Clr Calc Pharmacy 46.2; Estimated Glomerular Filt Rate 42; Glucose Random 155 mg/dL (60-115); Sodium 139 mmol/L (135-145)
[2023-08-19] MEDS: Albuterol/Iprat 2.5/0.5MG 3 ML AMPUL.NEB INHALE ×4 (08:16→20:25)
[2023-08-19] MEDS: dilTIAZem HCL CD 120 MG CAP.ER.DEG PO (08:35)
[2023-08-19] MEDS: Ascorbic Acid 500 MG TABLET PO (08:35)
[2023-08-19] MEDS: Bumetanide 1 MG TABLET 4 MG PO (08:35)
[2023-08-19] MEDS: Thiamine HCL 100 MG TABLET PO (08:35)
[2023-08-19] MEDS: polyethylene glycoL 3350 17 GM POWD.PACK PO (08:35)
[2023-08-19] MEDS: Sennosides 8.6 MG TABLET 17.2 MG PO ×2 (08:35→22:45)
[2023-08-19] MEDS: Ferrous Sulfate 300 MG/5 ML LIQUID PO ×3 (08:35→18:51)
[2023-08-19] MEDS: Apixaban 5 MG TABLET PO ×2 (08:35→22:45)
[2023-08-19] MEDS: Gabapentin 300 MG CAPSULE 600 MG PO ×4 (08:35→22:44)
[2023-08-19] MEDS: methylPREDNISolone Sod Succ 40 MG/ML VIAL IVPUSH ×2 (08:36→22:45)
[2023-08-19] MEDS: 0.9 % Sodium Chloride Flush 3 ML SYRINGE IVFLUSH ×3 (08:36→22:45)
[2023-08-19] MEDS: Digoxin 0.125 MG TABLET PO (08:36)
[2023-08-19] MEDS: guaiFENesin LA 600 MG TAB.ER.12H PO ×2 (10:00→22:44)
[2023-08-19] MEDS: traMADoL HCL 50 MG TABLET PO ×4 (10:00→23:43)
--- NOTE | 2023-08-19 17:26 | P.PNIM_ITS ---
Subjective Subjective Date of Service: 08/20/23 Interval History: being followed for low H&H, chronic shortness of breath nonproductive cough and fatigue. patient offers no acute complaints of worsening cough or shortness of breath, denies fever, no chills, no chest pain, no palpitations, but feels shitty son at bedside, provided history that patient has chronic left lower lobe collapse and has been maintained on 4 L of oxygen, Review of Systems all other system reviewed and negative Physical Exam 2 Vital Signs: Vital Signs: Last Vital Signs Temp 97.9 F 08/19/23 15:40 Pulse 72 08/19/23 16:45 Resp 20 08/19/23 16:45 BP 120/56 L 08/19/23 15:40 Pulse Ox 93 08/19/23 16:45 O2 Del Method Nasal Cannula 08/19/23 15:40 O2 Flow Rate 8 08/19/23 07:36 Oxygen Flow Rate 5 08/18/23 11:51 BMI result Body Mass Index 39.8 Const: Other: General awake alert sitting comfortably in no acute distress Neck supple, no JVD. CVS regular rate rhythm, Respiratory lungs clear to auscultation, no respiratory distress, no wheeze, no rhonchi, diminished breath sounds left base. Gastrointestinal abdomen soft, nontender, bowel sounds audible. Extremities no pitting edema. Neuro non focal ,moving all 4 extremity speech clear. Skin ecchymosis psych appropriate affect Objective Data Active Medications Acetaminophen (Acetaminophen 325 Mg Tablet) 650 mg PO Q6H PRN PRN Reason: Pain, Mild (Pain Scale 1-3) Albuterol/Ipratropium (Albuterol/Iprat 2.5/0.5mg 3 Ml Ampul.Neb) 3 ml INHALE RQ4H WHILE AWAKE [facility] Last Admin: 08/19/23 16:37 Dose: 3 ml Documented By: KALANI Apixaban (Apixaban 5 Mg Tablet) 5 mg PO BID@0800,2100 [facility] Last Admin: 08/19/23 08:35 Dose: 5 mg Documented By: ALBERTA Ascorbic Acid (Ascorbic Acid 500 Mg Tablet) 500 mg PO DAILY@0800 [facility] Last Admin: 08/19/23 08:35 Dose: 500 mg Documented By: ALBERTA Bumetanide (Bumetanide 1 Mg Tablet) 4 mg PO DAILY@0800 [facility]; Protocol Last Admin: 08/19/23 08:35 Dose: 4 mg Documented By: ALBERTA Dextrose (Dextrose 50 % 25 Gm/50 Ml Syringe) 25 gm IVPUSH Q15M PRN; Protocol PRN Reason: per Hypoglycemia Standing Ord. Digoxin (Digoxin 0.125 Mg Tablet) 0.125 mg PO DAILY@0800 [facility] Last Admin: 08/19/23 08:36 Dose: 0.125 mg Documented By: ALBERTA Diltiazem HCl (Diltiazem Hcl Cd 120 Mg Cap.Er.Deg) 120 mg PO DAILY@0800 [facility]; Protocol Last Admin: 08/19/23 08:35 Dose: 120 mg Documented By: ALBERTA Diphenhydramine HCl (Diphenhydramine Hcl 50 Mg/Ml Vial) 25 mg IVPUSH Q6H PRN PRN Reason: Itching Last Admin: 08/18/23 21:43 Dose: 25 mg Documented By: BRENDA Ferrous Sulfate (Ferrous Sulfate 300 Mg/5 Ml Liquid) 300 mg PO TIDWM [facility] Last Admin: 08/19/23 13:49 Dose: 300 mg Documented By: ALBERTA Gabapentin (Gabapentin 300 Mg Capsule) 600 mg PO QID [facility] Last Admin: 08/19/23 13:47 Dose: 600 mg Documented By: ALBERTA Glucose (Glucose Gel 15 Gm Gel..Gram.) 15 gm PO Q15M PRN; Protocol PRN Reason: per Hypoglycemia Standing Ord. Guaifenesin (Guaifenesin La 600 Mg Tab.Er.12h) 600 mg PO BID [facility] Last Admin: 08/19/23 10:00 Dose: 600 mg Documented By: ALBERTA Guaifenesin/Dextromethorphan (Guaifenesin Dm 200/20/10 Ml 10 Ml Syrup) 10 ml PO Q4H PRN PRN Reason: Cough Insulin Human Lispro (Insulin Lispro 100 Unit/Ml 3 Ml Vial) 0 unit SUBCUT QIDACHS [facility]; Protocol Last Admin: 08/19/23 12:35 Dose: Not Given Documented By: ALBERTA Non-Admin Reason: Patient Refused Melatonin (Melatonin 3 Mg Tablet) 6 mg PO BEDTIME PRN PRN Reason: Insomnia Methylprednisolone Sodium Succinate (Methylprednisolone Sod Succ 40 Mg/Ml Vial) 40 mg IVPUSH Q12H [facility] Last Admin: 08/19/23 08:36 Dose: 40 mg Documented By: ALBERTA Polyethylene Glycol (Polyethylene Glycol 3350 17 Gm Powd.Pack) 17 gm PO DAILY@0800 [facility] Last Admin: 08/19/23 08:35 Dose: 17 gm Documented By: ALBERTA Senna (Sennosides 8.6 Mg Tablet) 17.2 mg PO BID@0800,2100 [facility] Last Admin: 08/19/23 08:35 Dose: 17.2 mg Documented By: ALBERTA Sodium Chloride (0.9 % Sodium Chloride Flush 3 Ml Syringe) 3 ml IVFLUSH QSHIFT [facility] Last Admin: 08/19/23 08:36 Dose: 3 ml Documented By: ALBERTA Thiamine HCl (Thiamine Hcl 100 Mg Tablet) 100 mg PO DAILY@0800 [facility] Last Admin: 08/19/23 08:35 Dose: 100 mg Documented By: ALBERTA Tramadol HCl (Tramadol Hcl 50 Mg Tablet) 50 mg PO Q4H PRN PRN Reason: Pain, Moderate(Pain Scale 4-6) Last Admin: 08/19/23 13:47 Dose: 50 mg Documented By: ALBERTA Labs 08/20/23 06:19 08/20/23 06:19 Labs: Laboratory Results - last 24 hr 08/18/23 08/18/23 08/18/23 12:16 13:03 19:21 MCV MCH MCHC RDW Plt Count MPV Absolute Nucleated RBC Nucleated RBC % (auto) Anion Gap Estim Creat Clear Calc Estimated GFR POC Glucose Random Glucose Calcium Procalcitonin 0.46 Urine Color Yellow Urine Appearance Cloudy Urine pH 8.0 Ur Specific Mcdavid 1.010 Urine Protein Negative Urine Glucose (UA) Negative Urine Ketones Negative Urine Blood Negative Urine Nitrite Negative Ur Leukocyte Esterase Negative Blood Type B Negative Antibody Screen NEGATIVE Crossmatch See Detail 08/19/23 08/19/23 06:55 07:34 MCV 81.9 MCH 21.8 L MCHC 26.6 L RDW 18.6 H Plt Count 349 MPV 9.9 Absolute Nucleated RBC 0.140 H Nucleated RBC % (auto) 0.7 H Anion Gap 14 Estim Creat Clear Calc 46.2 Estimated GFR 42 POC Glucose 138 H Random Glucose 155 H Calcium 8.9 Procalcitonin Urine Color Urine Appearance Urine pH Ur Specific Mcdavid Urine Protein Urine Glucose (UA) Urine Ketones Urine Blood Urine Nitrite Ur Leukocyte Esterase Blood Type Antibody Screen Crossmatch Microbiology Microbiology Results: Microbiology 08/18/23 13:03 Blood Culture - Preliminary Blood - Venous No growth after 24 hours. 08/18/23 13:03 Blood Culture - Preliminary Blood - Venous No growth after 24 hours. Assessment and Plan (1) Morbid obesity: Status: Acute (2) Normocytic anemia: Status: Acute (3) Respiratory syncytial virus (RSV): Status: Acute (4) COPD (chronic obstructive pulmonary disease): Status: Acute (5) Acute respiratory failure with hypoxia: Status: Acute Plan 72-year-old female with a PMH significant for?chronic atrial fibrillation on Eliquis, HFpEF, insulin-dependent diabetes type 2, COPD on 4 L home O2, lung cancer, and GERD who presents to the ED for evaluation of abnormal labs. Pt will be admitted to the hospital for treatment further evaluation of acute hypoxic respiratory failure in the setting of RSV infection. Acute hypoxic respiratory failure in the setting of RSV infection Pt admitted with increased fatigue, SOB, non-productive cough for the past few days on admission 83% on home 4L NC; tested positive for RSV cont. Duonebs, Solu-Medrol, guaifenesin Incentive spirometry Titrate supplemental O2>90, wean as tolerated Question of pneumonia/bronchitis Chest CT showed complete collapse of left lower lobe, suggestive of combination of atelectasis and consolidation and findings of bronchitis cont.iv ceftriaxone and azithromycin started on 08/18 procalcitonin 0.46 Anemia with question of GI bleed H&H 6.7/25.0 on 08/14/23, repeat h/h7.4/28.0 Stool tested positive for occult blood at bedside in ED, but negative at lab ct abd and pelvis showed no cause of gi bleed. no melena or hematochezia iron studies in July and August indicate low iron, normal TIBC, and low % saturation cont. p.o. iron Follow CBC, transfuse as indicated Hypokalemia Potassium 3.0 at Admission likely due to diuretics repleted and normalized Follow BMP, supplement as warranted CHF with preserved EF BNP mildly elevated at 202, continue Bumex home does follow BMP Viral sepsis positive for RSV; WBCs chronically elevated; tachypnea secondary to hypoxia, Lactic acid WNL at 1.7 Afib continue Eliquis for now since does not appear to be acute blood loss anemia Follow CBC and occult blood test Continue diltiazem, digoxin, Insulin dependent diabetes type 2 patient on insulin sliding scale at home, patient and son declined insulin, therefore will DC insulin continue to monitor blood sugars bid. Neuropathy Continue gabapentin, tramadol Obesity class III Weight loss encouraged Full Code (though pt does not wish to have prolonged CPR) DVT Prophylaxis: On Eliquis Pt will require continued inpatient hospitalization for treatment of?acute hypoxic respiratory failure in the setting RSV infection,on IV steroids, breathing treatments, and close observation of cbc and respiratory status. Quality Stroke Does the patient have a stroke diagnosis?: No VTE Prior VTE?: No VTE Risk Level:: Medical - moderate - high VTE Device Contraindication: Treatment Not Indicated VTE Drug Contraindication: N/A - Med Ordered
[2023-08-19 21:03] LABS: Glucose, Whole Blood 180 mg/dL (60-115)
[2023-08-19] MEDS: diphenhydrAMINE HCL 50 MG/ML VIAL 25 MG IVPUSH (22:45)
[2023-08-20] VITALS (13 sets, daily range): BP systolic 96–132; BP diastolic 48–69; PULSE 63–96; RESP 15–22; TEMP 36.2–36.8; O2SAT 90–99
[2023-08-20 06:52] LABS: Hematocrit 25.4 % (37.0-47.0); Mean Corpuscular HGB Conc 26.8 g/dl (31.0-35.0); Mean Corpuscular Volume 82.2 fL (80.0-98.0); Mean Platelet Volume 9.2 fL (9.4-12.3); NRBC Pct Auto 0.9 /100WBC (0.0-0.2); Platelet Count 406 X10*3/uL (160-400); Red Blood Count 3.09 X10*6/uL (4.20-5.50); Red Cell Distribution Width 18.8 % (11.0-16.0); White Blood Count 20.8 X10*3/uL (4.8-10.8)
[2023-08-20 06:53] LABS: Anion Gap 12 (12-20); Blood Urea Nitrogen 22 mg/dL (9-16); Calcium 9.1 mg/dL (8.4-10.2); Carbon Dioxide 40 mmol/L (22-29); Chloride 90 mmol/L (96-108); Creatinine Clr Calc Pharmacy 48.2; Estimated Glomerular Filt Rate 43; Glucose Random 159 mg/dL (60-115); Potassium 3.7 mmol/L (3.3-5.1); Sodium 138 mmol/L (135-145)
[2023-08-20 07:07] LABS: Glucose, Whole Blood 148 mg/dL (60-115)
[2023-08-20 07:48] LABS: Hemoglobin 6.8 g/dl (12.0-16.0)
[2023-08-20] MEDS: Albuterol/Iprat 2.5/0.5MG 3 ML AMPUL.NEB INHALE ×4 (07:57→20:02)
[2023-08-20] MEDS: polyethylene glycoL 3350 17 GM POWD.PACK PO (08:08)
[2023-08-20] MEDS: Sennosides 8.6 MG TABLET 17.2 MG PO ×2 (08:09→20:46)
[2023-08-20] MEDS: Bumetanide 1 MG TABLET 4 MG PO (08:09)
[2023-08-20] MEDS: dilTIAZem HCL CD 120 MG CAP.ER.DEG PO (08:10)
[2023-08-20] MEDS: Gabapentin 300 MG CAPSULE 600 MG PO ×4 (08:10→20:46)
[2023-08-20] MEDS: Thiamine HCL 100 MG TABLET PO (08:10)
[2023-08-20] MEDS: Ascorbic Acid 500 MG TABLET PO (08:10)
[2023-08-20] MEDS: Apixaban 5 MG TABLET PO ×2 (08:10→20:47)
[2023-08-20] MEDS: guaiFENesin LA 600 MG TAB.ER.12H PO ×2 (08:11→20:46)
[2023-08-20] MEDS: Ferrous Sulfate 300 MG/5 ML LIQUID PO ×3 (08:11→17:59)
[2023-08-20] MEDS: Digoxin 0.125 MG TABLET PO (08:11)
[2023-08-20] MEDS: 0.9 % Sodium Chloride Flush 3 ML SYRINGE IVFLUSH ×3 (08:14→20:47)
--- NOTE | 2023-08-20 09:19 | MHC.CM.PN ---
LATE ENTRY NOTE FOR 08/19/23, CM MET W/PT AND /SISTER/DTR ALBERTINA AT BEDSIDE, PT HAS BEEN AT [facility] FOR STR AND IS DECLINING TO RETURN, FAMILY IN AGREEMENT. 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 HCP/MOLST AND PCP ON FILE VERIFIED, COVID VACC X3
[2023-08-20] MEDS: methylPREDNISolone Sod Succ 40 MG/ML VIAL IVPUSH (11:12)
--- NOTE | 2023-08-20 11:22 | P.CNGI_ITS ---
History of Present Illness Data of Consult Service Date: 08/20/23 Requesting physician: Rubia Jaramillo Primary Care Provider: Luigi Hong MD HPI Reason for consult: anemia on Eliquis 72 YF with chronic atrial fibrillation on Eliquis, HFpEF, insulin-dependent diabetes type 2, COPD on 4 L home O2, lung cancer, and GERD seen at [facility] on 08/18/23 for evaluation of abnormal labs. Pt is not the best historian and HPI supplemented by son and her were at the bedside. Pt has been experiencing shortness breath and intermittent hypoxia since March when she was found to have a collapsed lower left lung. She was placed on 4 L home O2, and has been in and out of hospitals since then. Patient with limited mobility and has not been able to walk or stand for some time. Pt's son reports she had anemia while admitted at [facility] a month ago and was transfused 1 U PRBC. Pt denies symptoms of abdominal pain, heartburn or dysphagia. She denies recent change in bowel habits, hematochezia melena. Son reports patient's appetite has decreased and she has lost weight over the past year from 258 to 229 lb Pt smoked 1/2 PPD of cigarettes and quitted in March of 2023. She denies EtOH abuse. Patient was a resident of [facility] where labs were drawn and shwed H&H of 6.7/25.0. Pt was sent to [facility] for possible transfusion. In the ED patient's H&H was noted to be 7.4/28.0 and transfusion was held. Stool was initially positive in the ED at bedside, but negative when a sample was sent to the lab. Pt complained of chronic SOB, non-productive cough, chronic lower leg edema and fatigue slightly worse than her baseline. Pt denied melena, hematochezia.. In the ED pt was afebrile, tachypneic up to 21, with soft BP as low as 110/47. Patient presented setting as low as 83% on RA, eventually placed on OxyMask. Labs showed chronically elevated WBC 13.7, normocytic anemia of 7.4/28.0, potassium 3.0, chloride 89, carbon dioxide 43, VBG pH 7.46 with bicarb 56. Lactic acid WNL at 1.7. Stool negative for occult blood. Patient tested positive for RSV. CXR showed left lower lobe retrocardiac opacity question infiltrate versus atelectasis. Also found prominent bilateral pulmonary vascular question of underlying congestion. CT of chest with contrast found complete collapse of left lower lobe with opacified left lower lobe likely representing combination of atelectasis and consolidation. Did not show any pleural effusion. Also found moderate pulmonary emphysema and diffusely thickened bronchial wall with question of active bronchitis. CT of abdomen and pelvis found no source of rectal bleeding: No evidence of enteritis, colitis, or acute diverticulitis. EKG demonstrated atrial fibrillation without significant ischemic changes. Pt was treated with potassium chloride, Solu-Medrol, morphine sulfate, ceftriaxone, and azithromycin. Pt was admitted to [facility] for management of acute hypoxic respiratory failure in the setting of RSV infection. Pt's Eliquis was placed on hold after her 9 am dose today (08/20/23) Review of Systems 2 Review of Systems: Abnormal labs Chronic shortness of breath, worse than baseline Chronic nonproductive cough, worse than baseline Chronic lower leg edema, around baseline PMFSH Past Medical History Medical History (Updated 08/22/23 @ 11:06 by Mina Hurley DO) Morbid obesity Atrial fibrillation with rapid ventricular response Constipation Lung cancer Pneumonia COPD with acute exacerbation COPD (chronic obstructive pulmonary disease) Carpal tunnel syndrome, left Nerve pain High blood pressure Surgical History Surgical History H/O: hysterectomy Social History Social History Household Members: None Housing: Long Term Housing Other:: [facility] Do you presently have visiting nurse or other home services: No Alcohol intake: never Patient Tobacco Use Status: Former Tobacco user Tobacco use type: Cigarette Cigarette Packs Per Day: 1 Cigarettes Per Day: 20.0 e-Cigarette/Vaping Use: Never Used Second Hand Smoke Exposure: No Advance Directives Date on File: 03/23/23 service: No Current occupational status: retired Current occupation: left handed Meds Allergies Allergy/AdvReac Type Severity Reaction Status Date / Time Penicillin Allergy Unknown rash Uncoded 03/15/23 16:50 Active Medications: Current Medications Acetaminophen (Acetaminophen 325 Mg Tablet) 650 mg PO Q6H PRN PRN Reason: Pain, Mild (Pain Scale 1-3) Albuterol/Ipratropium (Albuterol/Iprat 2.5/0.5mg 3 Ml Ampul.Neb) 3 ml INHALE RQ4H WHILE AWAKE [facility] Last Admin: 08/20/23 11:09 Dose: 3 ml Apixaban (Apixaban 5 Mg Tablet) 5 mg PO BID@0800,2100 [facility] Last Admin: 08/20/23 08:10 Dose: 5 mg Ascorbic Acid (Ascorbic Acid 500 Mg Tablet) 500 mg PO DAILY@0800 [facility] Last Admin: 08/20/23 08:10 Dose: 500 mg Bumetanide (Bumetanide 1 Mg Tablet) 4 mg PO DAILY@0800 [facility]; Protocol Last Admin: 08/20/23 08:09 Dose: 4 mg Dextrose (Dextrose 50 % 25 Gm/50 Ml Syringe) 25 gm IVPUSH Q15M PRN; Protocol PRN Reason: per Hypoglycemia Standing Ord. Digoxin (Digoxin 0.125 Mg Tablet) 0.125 mg PO DAILY@0800 [facility] Last Admin: 08/20/23 08:11 Dose: 0.125 mg Diltiazem HCl (Diltiazem Hcl Cd 120 Mg Cap.Er.Deg) 120 mg PO DAILY@0800 [facility]; Protocol Last Admin: 08/20/23 08:10 Dose: 120 mg Diphenhydramine HCl (Diphenhydramine Hcl 50 Mg/Ml Vial) 25 mg IVPUSH Q6H PRN PRN Reason: Itching Last Admin: 08/19/23 22:45 Dose: 25 mg Ferrous Sulfate (Ferrous Sulfate 300 Mg/5 Ml Liquid) 300 mg PO TIDWM [facility] Last Admin: 08/20/23 11:12 Dose: 300 mg Gabapentin (Gabapentin 300 Mg Capsule) 600 mg PO QID [facility] Last Admin: 08/20/23 08:10 Dose: 600 mg Glucose (Glucose Gel 15 Gm Gel..Gram.) 15 gm PO Q15M PRN; Protocol PRN Reason: per Hypoglycemia Standing Ord. Guaifenesin (Guaifenesin La 600 Mg Tab.Er.12h) 600 mg PO BID [facility] Last Admin: 08/20/23 08:11 Dose: 600 mg Guaifenesin/Dextromethorphan (Guaifenesin Dm 200/20/10 Ml 10 Ml Syrup) 10 ml PO Q4H PRN PRN Reason: Cough Sodium Chloride (Ns) 100 mls @ 100 mls/hr IV ONCE ONE Stop: 08/20/23 11:38 Melatonin (Melatonin 3 Mg Tablet) 6 mg PO BEDTIME PRN PRN Reason: Insomnia Methylprednisolone Sodium Succinate (Methylprednisolone Sod Succ 40 Mg/Ml Vial) 40 mg IVPUSH Q12H [facility] Last Admin: 08/20/23 11:12 Dose: 40 mg Polyethylene Glycol (Polyethylene Glycol 3350 17 Gm Powd.Pack) 17 gm PO DAILY@0800 [facility] Last Admin: 08/20/23 08:08 Dose: 17 gm Senna (Sennosides 8.6 Mg Tablet) 17.2 mg PO BID@0800,2100 [facility] Last Admin: 08/20/23 08:09 Dose: 17.2 mg Sodium Chloride (0.9 % Sodium Chloride Flush 3 Ml Syringe) 3 ml IVFLUSH QSHIFT [facility] Last Admin: 08/20/23 08:14 Dose: 3 ml Thiamine HCl (Thiamine Hcl 100 Mg Tablet) 100 mg PO DAILY@0800 [facility] Last Admin: 08/20/23 08:10 Dose: 100 mg Tramadol HCl (Tramadol Hcl 50 Mg Tablet) 50 mg PO Q4H PRN PRN Reason: Pain, Moderate(Pain Scale 4-6) Last Admin: 08/19/23 23:43 Dose: 50 mg Home Medications Medication Instructions Recorded Confirmed Last Taken Type tramadol 50 mg tablet 50 mg PO Q4H PRN Pain, Moderate 03/15/23 08/18/23 03/15/23 History apixaban 5 mg tablet (Eliquis) 5 mg PO BID@0800,2100 08/18/23 08/18/23 08/18/23 History ascorbic acid (vitamin C) 500 mg 500 mg PO DAILY@0800 08/18/23 08/18/23 08/18/23 History tablet bumetanide 2 mg tablet 4 mg PO DAILY@0800 08/18/23 08/18/23 08/18/23 History digoxin 125 mcg (0.125 mg) tablet 0.125 mg PO DAILY@0800 08/18/23 08/18/23 08/18/23 History diltiazem HCl 120 mg 120 mg PO DAILY@0800 08/18/23 08/18/23 08/18/23 History capsule,extended release 24 hr (Cardizem CD) gabapentin 300 mg capsule 600 mg PO QID 08/18/23 08/18/23 Unknown History insulin lispro 100 unit/mL 1 sliding scale dose subcut 08/18/23 08/18/23 Unknown History subcutaneous solution TIDAC@0800,1200,1800 ondansetron HCl 4 mg tablet 8 mg PO DAILY PRN Nausea 08/18/23 08/18/23 Unknown History polyethylene glycol 3350 17 17 g PO DAILY@0800 08/18/23 08/18/23 08/18/23 History gram/dose oral powder sennosides 8.6 mg tablet (senna) 17.2 mg PO BID@0800,2100 08/18/23 08/18/23 08/18/23 History thiamine HCl (vitamin B1) 100 mg 100 mg PO DAILY@0800 08/18/23 08/18/23 08/18/23 History tablet Physical Exam 2 Vital Signs: Vital Signs: Last Vital Signs Temp 97.2 F 08/20/23 10:55 Pulse 78 08/20/23 11:10 Resp 18 08/20/23 11:10 BP 116/52 L 08/20/23 10:55 Pulse Ox 91 L 08/20/23 10:55 O2 Del Method Nasal Cannula 08/20/23 10:55 O2 Flow Rate 5 08/20/23 04:00 Oxygen Flow Rate 5 08/18/23 11:51 BMI result Body Mass Index 39.8 Const: Other: General awake alert sitting comfortably in no acute distress Neck supple no JVD. CVS regular rate rhythm, Respiratory lungs clear to auscultation, no respiratory distress, no wheeze, no rhonchi, diminished breath sounds left base. Gastrointestinal abdomen soft, nontender, bowel sounds audible. Extremities mild edema. Neuro nonfocal ,moving all 4 extremity speech clear. Skin ecchymosis psych appropriate affect General: ill appearing (Chronically ill-appearing) Nutritional Appearance: obese Results Labs 08/22/23 06:39 08/22/23 06:39 Labs: Short CBC 08/20/23 Range/Units 06:19 WBC 20.8 H (4.8-10.8) X10*3/uL Hgb 6.8 L* (12.0-16.0) g/dl Hct 25.4 L (37.0-47.0) % Plt Count 406 H (160-400) X10*3/uL BMP 08/20/23 06:19 Sodium 138 Potassium 3.7 Chloride 90 L Carbon Dioxide 40 H* BUN 22 H Creatinine 1.21 Calcium 9.1 Microbiology Microbiology Results: Microbiology 08/18/23 13:03 Blood - Venous Blood Culture - Preliminary No growth after 24 hours. 08/18/23 13:03 Blood - Venous Blood Culture - Preliminary No growth after 24 hours. Assessment and Plan (1) Normocytic anemia: Status: Acute Plan 72 YF with chronic atrial fibrillation on Eliquis, HFpEF, insulin-dependent diabetes type 2, COPD on 4 L home O2, lung cancer, and GERD seen at [facility] on 08/18/23 for evaluation of abnormal labs. Pt has been experiencing shortness breath and intermittent hypoxia since March when she was found to have a collapsed lower left lung. She was placed on 4 L home O2, and has been in and out of hospitals since then. Patient was a resident of [facility] where labs were drawn and shwed H&H of 6.7/25.0. Pt was sent to [facility] for possible transfusion. In the ED patient's H&H was noted to be 7.4/28.0 and transfusion was held. Stool was initially positive in the ED at bedside, but negative when a sample was sent to the lab. Patient tested positive for RSV. Pt was admitted to [facility] for management of acute hypoxic respiratory failure in the setting of RSV infection. Pt's Eliquis was placed on hold after her 9 am dose today (08/20/23) Anemia is likely multifactorial - a combination of anemia of chronic disease and iron deficiency. She can have intermittent blood loss from upper versus lower GI source (Of note pt declined to have a colonoscopy in the remote past when advised by her PCP) She is at increased risk for endoscopic procedures due to COPD, oxygen dependance and recent RSV infection RECOMMENDATIONS: 1. Monitor CBC daily after blood transfusion 2. Pulmonary evaluation regarding risk of anesthesia ADDENDUM: Pt seen by Dr Marquez, Pulmoary medicine and advised: Impression: 72-year-old lady with underlying obesity, then COPD on 4 L of supplemental oxygen, likely obstructive sleep apnea, now admitted with subacute anemia, chronic dyspnea, and acute RSV infection, being evaluated for endoscopy. Recommendations: Secondary to her underlying chronic hypoxic respiratory failure with baseline needs of 4 L of oxygen, obesity, and likely obstructive sleep apnea patient is a moderate non modifiable risk for the proposed procedure under general anesthesia. Would recommend against utilizing monitored anesthesia care. Also, patient has an with underlying RSV infection. If procedure can be postponed, would suggest postpone for approximately 7 days to recover from underlying RSV infection. However, if procedures deemed necessary, suggest proceeding with caveat as above. Above recommendations were reviewed with the patient and her son who was at the bedside. Since pt's H&H has been stable post blood transfusion without over bleeding, option of continuing conservative management with supportive care and blood transfusion prn was also discussed. They would like to wait to see how she is doing next week before making a decision. Please re-consult if pt and family decide to pursue endoscopic evaluation Procedures Date of Service Date of Service: 08/22/23
[2023-08-20] MEDS: traMADoL HCL 50 MG TABLET PO ×2 (14:51→20:47)
--- NOTE | 2023-08-20 14:58 | P.CONPL_ITS ---
History of Present Illness History of Present Illness Consult date: 08/20/23 Chief complaint: hypoxia, rsv+, pneumonia Narrative: 72-year-old lady with underlying history of chronic hypoxic respiratory failure on 4 L of oxygen, COPD, diastolic heart failure, AFib on Eliquis, diabetes mellitus, obesity admitted with subacute anemia and chronic dyspnea. On further evaluation patient noted to be RSV positive. She was evaluated by Gastroenterology and is being planned for endoscopy. Pulmonary perioperative risk assessment is requested. Review of Systems 2 Constitutional: Constitutional: Denies daytime sleepiness, Denies excessive sweating, Denies fatigue, Denies fever(s), Denies lethargy, Reports malaise, Denies night sweats, Denies snoring and Denies weight loss Eyes: Eyes: Denies blurry vision and Denies itchy eyes ENT: Denies nasal congestion, Denies post nasal drip, Denies sinus pain, Denies sinus pressure and Denies other ( Thrush) Cardiovascular: Cardiovascular: Denies chest pain, Reports pedal edema, Denies dyspnea, Reports dyspnea on exertion, Reports orthopnea and Denies paroxysmal nocturnal dyspnea Respiratory: Respiratory: Denies cough, Denies hemoptysis, Denies excessive phlegm production, Denies dyspnea, Reports dyspnea on exertion, Denies snoring and Denies wheezing Gastrointestinal: Gastrointestinal: Denies abdominal pain and Denies heartburn Musculoskeletal: Musculoskeletal: Denies myalgias, Denies arthralgias and Denies joint swelling Integumentary/Breasts: Skin/Breast: Denies rash Neurologic: Denies memory loss and Denies seizure-like activity Psychiatric: Psychiatric: Denies abnormal sleep pattern, Denies anxiety and Denies memory loss Endocrine: Endocrine: Denies excessive sweating, Denies fatigue and Denies heat intolerance Hematologic/Lymphatic: Hematologic/Lymphatic: Denies easy bruising Allergic/Immunologic: Allergic/Immunologic: Denies itchy eyes, Denies seasonal rhinorrhea and Denies wheezing PMFSH Past Medical History Medical History (Updated 08/20/23 @ 15:05 by John Marquez MD) Morbid obesity Atrial fibrillation with rapid ventricular response Constipation Lung cancer Pneumonia COPD with acute exacerbation COPD (chronic obstructive pulmonary disease) Carpal tunnel syndrome, left Nerve pain High blood pressure Surgical History Surgical History H/O: hysterectomy Social History Social History Household Members: None Housing: Custodial Housing Other:: [facility] Do you presently have visiting nurse or other home services: No Alcohol intake: never Patient Tobacco Use Status: Former Tobacco user Tobacco use type: Cigarette Cigarette Packs Per Day: 1 Cigarettes Per Day: 20.0 e-Cigarette/Vaping Use: Never Used Second Hand Smoke Exposure: No Advance Directives Date on File: 03/23/23 service: No Current occupational status: retired Current occupation: left handed Meds Allergies Allergy/AdvReac Type Severity Reaction Status Date / Time Penicillin Allergy Unknown rash Uncoded 03/15/23 16:50 Active Medications: Current Medications Acetaminophen (Acetaminophen 325 Mg Tablet) 650 mg PO Q6H PRN PRN Reason: Pain, Mild (Pain Scale 1-3) Albuterol/Ipratropium (Albuterol/Iprat 2.5/0.5mg 3 Ml Ampul.Neb) 3 ml INHALE RQ4H WHILE AWAKE [facility] Last Admin: 08/20/23 14:56 Dose: 3 ml Apixaban (Apixaban 5 Mg Tablet) 5 mg PO BID@0800,2100 [facility] Last Admin: 08/20/23 08:10 Dose: 5 mg Ascorbic Acid (Ascorbic Acid 500 Mg Tablet) 500 mg PO DAILY@0800 [facility] Last Admin: 08/20/23 08:10 Dose: 500 mg Bumetanide (Bumetanide 1 Mg Tablet) 4 mg PO DAILY@0800 [facility]; Protocol Last Admin: 08/20/23 08:09 Dose: 4 mg Dextrose (Dextrose 50 % 25 Gm/50 Ml Syringe) 25 gm IVPUSH Q15M PRN; Protocol PRN Reason: per Hypoglycemia Standing Ord. Digoxin (Digoxin 0.125 Mg Tablet) 0.125 mg PO DAILY@0800 [facility] Last Admin: 08/20/23 08:11 Dose: 0.125 mg Diltiazem HCl (Diltiazem Hcl Cd 120 Mg Cap.Er.Deg) 120 mg PO DAILY@0800 [facility]; Protocol Last Admin: 08/20/23 08:10 Dose: 120 mg Diphenhydramine HCl (Diphenhydramine Hcl 50 Mg/Ml Vial) 25 mg IVPUSH Q6H PRN PRN Reason: Itching Last Admin: 08/19/23 22:45 Dose: 25 mg Ferrous Sulfate (Ferrous Sulfate 300 Mg/5 Ml Liquid) 300 mg PO TIDWM [facility] Last Admin: 08/20/23 11:12 Dose: 300 mg Gabapentin (Gabapentin 300 Mg Capsule) 600 mg PO QID [facility] Last Admin: 08/20/23 14:47 Dose: 600 mg Glucose (Glucose Gel 15 Gm Gel..Gram.) 15 gm PO Q15M PRN; Protocol PRN Reason: per Hypoglycemia Standing Ord. Guaifenesin (Guaifenesin La 600 Mg Tab.Er.12h) 600 mg PO BID [facility] Last Admin: 08/20/23 08:11 Dose: 600 mg Guaifenesin/Dextromethorphan (Guaifenesin Dm 200/20/10 Ml 10 Ml Syrup) 10 ml PO Q4H PRN PRN Reason: Cough Melatonin (Melatonin 3 Mg Tablet) 6 mg PO BEDTIME PRN PRN Reason: Insomnia Methylprednisolone Sodium Succinate (Methylprednisolone Sod Succ 40 Mg/Ml Vial) 40 mg IVPUSH Q12H [facility] Last Admin: 08/20/23 11:12 Dose: 40 mg Polyethylene Glycol (Polyethylene Glycol 3350 17 Gm Powd.Pack) 17 gm PO DAILY@0800 [facility] Last Admin: 08/20/23 08:08 Dose: 17 gm Senna (Sennosides 8.6 Mg Tablet) 17.2 mg PO BID@0800,2099 [facility] Last Admin: 08/20/23 08:09 Dose: 17.2 mg Sodium Chloride (0.9 % Sodium Chloride Flush 3 Ml Syringe) 3 ml IVFLUSH QSHIFT [facility] Last Admin: 08/20/23 08:14 Dose: 3 ml Thiamine HCl (Thiamine Hcl 100 Mg Tablet) 100 mg PO DAILY@0800 [facility] Last Admin: 08/20/23 08:10 Dose: 100 mg Tramadol HCl (Tramadol Hcl 50 Mg Tablet) 50 mg PO Q4H PRN PRN Reason: Pain, Moderate(Pain Scale 4-6) Last Admin: 08/20/23 14:51 Dose: 50 mg Home Medications Medication Instructions Recorded Confirmed Last Taken Type tramadol 50 mg tablet 50 mg PO Q4H PRN Pain, Moderate 03/15/23 08/18/23 03/15/23 History apixaban 5 mg tablet (Eliquis) 5 mg PO BID@0800,2100 08/18/2308/18/23 12/15/23 History ascorbic acid (vitamin C) 500 mg 500 mg PO DAILY@0800 08/18/23 08/18/23 08/18/23 History tablet bumetanide 2 mg tablet 4 mg PO DAILY@0800 08/18/23 08/18/23 08/18/23 History digoxin 125 mcg (0.125 mg) tablet 0.125 mg PO DAILY@0800 08/18/23 08/18/23 08/18/23 History diltiazem HCl 120 mg 120 mg PO DAILY@0800 08/18/23 08/18/23 08/18/23 History capsule,extended release 24 hr (Cardizem CD) gabapentin 300 mg capsule 600 mg PO QID 08/18/23 08/18/23 Unknown History insulin lispro 100 unit/mL 1 sliding scale dose subcut 08/18/23 08/18/23 Unknown History subcutaneous solution TIDAC@0800,1200,1800 ondansetron HCl 4 mg tablet 8 mg PO DAILY PRN Nausea 08/18/23 08/18/23 Unknown History polyethylene glycol 3350 17 17 g PO DAILY@0800 08/18/23 08/18/23 08/18/23 History gram/dose oral powder sennosides 8.6 mg tablet (senna) 17.2 mg PO BID@0800,2100 08/18/23 08/18/23 08/18/23 History thiamine HCl (vitamin B1) 100 mg 100 mg PO DAILY@0800 08/18/23 08/18/23 08/18/23 History tablet Physical Exam 2 Vital Signs: Vital Signs: Last Vital Signs Temp 97.6 F 08/20/23 13:33 Pulse 88 08/20/23 13:33 Resp 20 08/20/23 13:33 BP 119/50 L 08/20/23 13:33 Pulse Ox 91 L 08/20/23 10:55 O2 Del Method Nasal Cannula 08/20/23 10:55 O2 Flow Rate 5 08/20/23 04:00 Oxygen Flow Rate 5 08/18/23 11:51 BMI result Body Mass Index 39.8 Const: General: no acute distress and alert Nutritional Appearance: obese and Edematous Orientation/consciousness: Other orientation findings ( oriented) HEENT: Head: Yes atraumatic Eyes: General: appearance normal, both eyes and all related structures S clerae: sclerae normal EOM: EOMs intact bilaterally Neck: Neck: Yes supple Lymphatic: no lymphadenopathy noted Resp: Effort & Inspection: normal respiratory effort and no use of accessory muscles Auscultation: clear to auscultation bilaterally Cardio: Rate: regular rate Rhythm: regular rhythm Heart sounds: no gallops, no murmurs and no rubs Skin: General skin exam: other ( warm) Extrem: General: No clubbing, No cyanosis and Yes edema ( 1+ bilateral) Results Laboratory Findings 08/20/23 06:19 08/20/23 06:19 ABG, PT/INR, D-dimer: PT/INR, D-dimer PT 20.5 SEC (11.1-13.3) H D 08/18/23 12:16 INR 1.7 (0.9-1.1) H 08/18/23 12:16 Abnormal lab findings: Abnormal Labs 08/18/23 08/18/23 08/18/23 12:16 12:19 12:29 WBC 13.7 H RBC 3.35 L Hgb 7.4 L Hct 28.0 L MCH 22.1 L MCHC 26.4 L RDW 18.7 H Plt Count 443 H MPV 8.8 L Immature Gran % (Auto) 1.2 H Neut % (Auto) 76.4 H Lymph % (Auto) 11.6 L Abs Immat Gran (auto) 0.16 H Absolute Neuts (auto) 10.4 H Absolute Nucleated RBC 0.080 H Nucleated RBC % (auto) 0.6 H PT 20.5 H D INR 1.7 H VBG pH 7.46 H VBG HCO3 56 H Potassium 3.0 L D Chloride 89 L Carbon Dioxide 43 H* Anion Gap 11 L BUN POC Glucose Random Glucose 139 H Alkaline Phosphatase 134 H Troponin I High Sens 26.8 H B-Natriuretic Peptide 202 H Albumin 3.0 L RSV RNA Qual (PCR) POSITIVE A Crossmatch 08/18/23 08/19/23 08/19/23 13:03 06:55 07:34 WBC 18.8 H RBC 3.31 L Hgb 7.2 L Hct 27.1 L MCH 21.8 L MCHC 26.6 L RDW 18.6 H Plt Count MPV Immature Gran % (Auto) Neut % (Auto) Lymph % (Auto) Abs Immat Gran (auto) Absolute Neuts (auto) Absolute Nucleated RBC 0.140 H Nucleated RBC % (auto) 0.7 H PT INR VBG pH VBG HCO3 Potassium Chloride 92 L Carbon Dioxide 37 H Anion Gap BUN POC Glucose 138 H Random Glucose 155 H Alkaline Phosphatase Troponin I High Sens B-Natriuretic Peptide Albumin RSV RNA Qual (PCR) Crossmatch See Detail 08/19/23 08/20/23 08/20/23 20:48 06:19 06:58 WBC 20.8 H RBC 3.09 L Hgb 6.8 L* Hct 25.4 L MCH 22.0 L MCHC 26.8 L RDW 18.8 H Plt Count 406 H MPV 9.2 L Immature Gran % (Auto) Neut % (Auto) Lymph % (Auto) Abs Immat Gran (auto) Absolute Neuts (auto) Absolute Nucleated RBC 0.180 H Nucleated RBC % (auto) 0.9 H PT INR VBG pH VBG HCO3 Potassium Chloride 90 L Carbon Dioxide 40 H* Anion Gap BUN 22 H POC Glucose 180 H 148 H Random Glucose 159 H Alkaline Phosphatase Troponin I High Sens B-Natriuretic Peptide Albumin RSV RNA Qual (PCR) Crossmatch Microbiology: Microbiology 08/18/23 13:03 Blood - Venous Blood Culture - Preliminary No growth after 24 hours. 08/18/23 13:03 Blood - Venous Blood Culture - Preliminary No growth after 24 hours. Assessment and Plan (1) COPD (chronic obstructive pulmonary disease): Status: Acute (2) Morbid obesity: Status: Acute (3) Respiratory syncytial virus (RSV): Status: Acute Plan Impression: 72-year-old lady with underlying obesity, then COPD on 4 L of supplemental oxygen, likely obstructive sleep apnea, now admitted with subacute anemia, chronic dyspnea, and acute RSV infection, being evaluated for endoscopy. Recommendations: Secondary to her underlying chronic hypoxic respiratory failure with baseline needs of 4 L of oxygen, obesity, and likely obstructive sleep apnea patient is a moderate non modifiable risk for the proposed procedure under general anesthesia. Would recommend against utilizing monitored anesthesia care. Also, patient has an with underlying RSV infection. If procedure can be postponed, would suggest postpone for approximately 7 days to recover from underlying RSV infection. However, if procedures deemed necessary, suggest proceeding with caveat as above. Procedures Date of Service Date of Service: 08/20/23
[2023-08-20 15:17] LABS: Ferritin 28 ng/mL (10-250)
[2023-08-20 15:34] LABS: Glucose, Whole Blood 202 mg/dL (60-115)
--- NOTE | 2023-08-20 15:53 | P.PNIM_ITS ---
Subjective Subjective Date of Service: 08/20/23 Interval History: being followed for anemia and acute on chronic hypoxic respiratory failure likely due to RSV infection this morning noted to have drop in hematocrit patient denies hematemesis, no melena, no hemoptysis denies shortness of breath, no chest pain, no palpitations , no nausea, no vomiting, no abdominal pain, no diarrhea Review of Systems all other system reviewed and negative Physical Exam 2 Vital Signs: Vital Signs: Last Vital Signs Temp 97.5 F 08/20/23 15:51 Pulse 86 08/20/23 15:51 Resp 18 08/20/23 15:51 BP 120/59 L 08/20/23 15:51 Pulse Ox 95 08/20/23 15:51 O2 Del Method Nasal Cannula 08/20/23 15:51 O2 Flow Rate 5 08/20/23 04:00 Oxygen Flow Rate 5 08/18/23 11:51 BMI result Body Mass Index 39.8 Const: Other: General awake alert, sitting comfortably in no acute distress Neck supple, no JVD. CVS regular rate rhythm, Respiratory lungs clear to auscultation, no respiratory distress, no wheeze, no rhonchi, diminished breath sounds left base. Gastrointestinal abdomen soft, non tender, bowel sounds audible. Extremities no pitting edema. Neuro non focal ,moving all 4 extremity, speech clear. Skin ecchymosis psych appropriate affect Objective Data Active Medications Acetaminophen (Acetaminophen 325 Mg Tablet) 650 mg PO Q6H PRN PRN Reason: Pain, Mild (Pain Scale 1-3) Albuterol/Ipratropium (Albuterol/Iprat 2.5/0.5mg 3 Ml Ampul.Neb) 3 ml INHALE RQ4H WHILE AWAKE [facility] Last Admin: 08/20/23 14:56 Dose: 3 ml Documented By: DAFNE Apixaban (Apixaban 5 Mg Tablet) 5 mg PO BID@0800,2100 [facility] Last Admin: 08/20/23 08:10 Dose: 5 mg Documented By: PAUL Ascorbic Acid (Ascorbic Acid 500 Mg Tablet) 500 mg PO DAILY@0800 [facility] Last Admin: 08/20/23 08:10 Dose: 500 mg Documented By: PAUL Bumetanide (Bumetanide 1 Mg Tablet) 4 mg PO DAILY@0800 [facility]; Protocol Last Admin: 08/20/23 08:09 Dose: 4 mg Documented By: PAUL Dextrose (Dextrose 50 % 25 Gm/50 Ml Syringe) 25 gm IVPUSH Q15M PRN; Protocol PRN Reason: per Hypoglycemia Standing Ord. Digoxin (Digoxin 0.125 Mg Tablet) 0.125 mg PO DAILY@0800 [facility] Last Admin: 08/20/23 08:11 Dose: 0.125 mg Documented By: PAUL Diltiazem HCl (Diltiazem Hcl Cd 120 Mg Cap.Er.Deg) 120 mg PO DAILY@0800 [facility]; Protocol Last Admin: 08/20/23 08:10 Dose: 120 mg Documented By: PAUL Diphenhydramine HCl (Diphenhydramine Hcl 50 Mg/Ml Vial) 25 mg IVPUSH Q6H PRN PRN Reason: Itching Last Admin: 08/19/23 22:45 Dose: 25 mg Documented By: VU Ferrous Sulfate (Ferrous Sulfate 300 Mg/5 Ml Liquid) 300 mg PO TIDWM [facility] Last Admin: 08/20/23 11:12 Dose: 300 mg Documented By: PAUL Gabapentin (Gabapentin 300 Mg Capsule) 600 mg PO QID [facility] Last Admin: 08/20/23 14:47 Dose: 600 mg Documented By: PAUL Glucose (Glucose Gel 15 Gm Gel..Gram.) 15 gm PO Q15M PRN; Protocol PRN Reason: per Hypoglycemia Standing Ord. Guaifenesin (Guaifenesin La 600 Mg Tab.Er.12h) 600 mg PO BID [facility] Last Admin: 08/20/23 08:11 Dose: 600 mg Documented By: PAUL Guaifenesin/Dextromethorphan (Guaifenesin Dm 200/20/10 Ml 10 Ml Syrup) 10 ml PO Q4H PRN PRN Reason: Cough Melatonin (Melatonin 3 Mg Tablet) 6 mg PO BEDTIME PRN PRN Reason: Insomnia Methylprednisolone Sodium Succinate (Methylprednisolone Sod Succ 40 Mg/Ml Vial) 40 mg IVPUSH Q12H [facility] Last Admin: 08/20/23 11:12 Dose: 40 mg Documented By: PAUL Polyethylene Glycol (Polyethylene Glycol 3350 17 Gm Powd.Pack) 17 gm PO DAILY@0800 [facility] Last Admin: 08/20/23 08:08 Dose: 17 gm Documented By: PAUL Senna (Sennosides 8.6 Mg Tablet) 17.2 mg PO BID@0800,2100 [facility] Last Admin: 08/20/23 08:09 Dose: 17.2 mg Documented By: PAUL Sodium Chloride (0.9 % Sodium Chloride Flush 3 Ml Syringe) 3 ml IVFLUSH QSHIFT [facility] Last Admin: 08/20/23 08:14 Dose: 3 ml Documented By: PAUL Thiamine HCl (Thiamine Hcl 100 Mg Tablet) 100 mg PO DAILY@0800 [facility] Last Admin: 08/20/23 08:10 Dose: 100 mg Documented By: PAUL Tramadol HCl (Tramadol Hcl 50 Mg Tablet) 50 mg PO Q4H PRN PRN Reason: Pain, Moderate(Pain Scale 4-6) Last Admin: 08/20/23 14:51 Dose: 50 mg Documented By: PAUL Labs 08/20/23 06:19 08/20/23 06:19 Labs: Laboratory Results - last 24 hr 08/18/23 08/19/23 08/20/23 13:03 20:48 06:19 MCV 82.2 MCH 22.0 L MCHC 26.8 L RDW 18.8 H Plt Count 406 H MPV 9.2 L Absolute Nucleated RBC 0.180 H Nucleated RBC % (auto) 0.9 H Anion Gap 12 Estim Creat Clear Calc 48.2 Estimated GFR 43 POC Glucose 180 H Random Glucose 159 H Calcium 9.1 Ferritin 28 Blood Type B Negative Antibody Screen NEGATIVE Crossmatch See Detail 08/20/23 08/20/23 06:58 15:23 MCV MCH MCHC RDW Plt Count MPV Absolute Nucleated RBC Nucleated RBC % (auto) Anion Gap Estim Creat Clear Calc Estimated GFR POC Glucose 148 H 202 H Random Glucose Calcium Ferritin Blood Type Antibody Screen Crossmatch Microbiology Microbiology Results: Microbiology 08/18/23 13:03 Blood Culture - Preliminary Blood - Venous No growth after 48 hours. 08/18/23 13:03 Blood Culture - Preliminary Blood - Venous No growth after 48 hours. Assessment and Plan (1) Morbid obesity: Status: Acute (2) Normocytic anemia: Status: Acute (3) Respiratory syncytial virus (RSV): Status: Acute (4) COPD (chronic obstructive pulmonary disease): Status: Acute (5) Acute respiratory failure with hypoxia: Status: Acute Plan 72-year-old female with a PMH significant for?chronic atrial fibrillation on Eliquis, HFpEF, insulin-dependent diabetes type 2, COPD on 4 L home O2, lung cancer, and GERD who presents to the ED for evaluation of abnormal labs. Pt will be admitted to the hospital for treatment further evaluation of acute hypoxic respiratory failure in the setting of RSV infection. Acute on ch hypoxic respiratory failure in the setting of RSV infection and anemia Pt admitted with increased fatigue, SOB, non-productive cough for the past few days on admission 83% on home 4L NC; tested positive for RSV cont. jun Resendez, ENA IV Solu Medrol Titrate supplemental O2>90, wean as tolerated currently on 6 L of oxygen encourage incentive spirometry Question of pneumonia/bronchitis Chest CT showed complete collapse of left lower lobe, suggestive of combination of atelectasis and consolidation and findings of bronchitis ( known left lower lobe collapsed lung since March 2023) cont.iv ceftriaxone and azithromycin started on 08/18 procalcitonin 0.46 acute on chronic normocytic Anemia with question of GI bleed H&H 6.7/25.0 on 08/14/23, repeat h/h7.4/28.0 on 08/19 today hematocrit dropped to 25.4, no acute bleeding noted will transfuse 1 unit of packed RBC, hold Eliquis, add Prilosec Stool tested positive for occult blood at bedside in ED, but negative at lab ct abd and pelvis showed no cause of gi bleed. no melena or hematochezia iron studies showed normal TIBC with low iron and saturation on iron supplement has not been evaluated by GI as per family, no recent upper endoscopy or colonoscopy obtain GI consult Dr. Mclaughlin recommended pulmonary preop clearance due to increased risk for endoscopic procedures due to chronic hypoxic respiratory failure, chronic dyspnea, COPD, now with RSV infection. patient seen by Dr. Marquez he recommend proposed procedure to be done under general anaesthesia patient is a moderate grade risk with non modifiable health risk including obstructive sleep apnea and chronic hypoxic respiratory failure, he recommend to post balloon procedure for approximately 7 days to recover from underlying RSV infection and if procedure deemed necessary he suggest proceeding with procedure he recommended against utilizing monitored anesthesia care. Hypokalemia Potassium 3.0 at Admission likely due to diuretics repleted and normalized Follow BMP. CHF with preserved EF BNP mildly elevated at 202, continue Bumex home does , elevated bicarb likely compensatory due to respiratory acidosis,add diamox Viral sepsis positive for RSV; WBCs chronically elevated; tachypnea secondary to hypoxia, Lactic acid WNL at 1.7 Afib Continue diltiazem, digoxin, hold Eliquis as above Insulin dependent diabetes type 2 patient on insulin sliding scale at home, patient and son declined insulin, therefore will DC insulin continue to monitor blood sugars bid. Neuropathy Continue gabapentin, tramadol Obesity class III Weight loss encouraged Full Code (though pt does not wish to have prolonged CPR) DVT Prophylaxis: compression boots will discuss with GI when to resume Eliquis Pt will require continued inpatient hospitalization for treatment of?acute hypoxic respiratory failure in the setting RSV infection,on IV steroids, breathing treatments, and anemia requiring blood transfusion Quality Stroke Does the patient have a stroke diagnosis?: No VTE Prior VTE?: No VTE Risk Level:: Medical - moderate - high VTE Device Contraindication: Treatment Not Indicated VTE Drug Contraindication: N/A - Med Ordered
--- NOTE | 2023-08-20 18:39 | PC.NURSE ---
Pt. Oxygen been up and down throughtout the shift between 82%- 95%, and in between 4L- 7L, Dr. Jaramillo notified, and one point at bedside, she order to keep pt. on 4L as pt. CO2 was elevated, Incentive spirometer was provided, teaching with return demonstration from pt. observed. Provider order also to keep monitoring.
[2023-08-20] MEDS: diphenhydrAMINE HCL 50 MG/ML VIAL 25 MG IVPUSH (20:46)
[2023-08-20] MEDS: acetaZOLAMIDE 250 MG TABLET PO (20:47)
[2023-08-20 21:17] LABS: Glucose, Whole Blood 263 mg/dL (60-115)
[2023-08-21] VITALS (8 sets, daily range): BP systolic 101–137; BP diastolic 53–61; PULSE 66–98; RESP 18–20; TEMP 36.2–36.4; O2SAT 88–98
--- NOTE | 2023-08-21 04:55 | PC.NURSE ---
Patient's O2 sat dropped down to 82% around 0400. O2 sat rising to 92% once patient is awoken. A+Ox4 and eupneic, expresses that she is not interested in wearing a CPAP machine at night. Quoted saying I don't want any part of that and I do not like when things are over my face. Patient educated on impact of low O2 saturation. Resistant to use of oxymask. After additional education on implications of low O2, pt willing to use oxymask if desat again.. Call matthews in reach. Plan of care ongoing. O2 stable at 90-92% while awake.
[2023-08-21] MEDS: Omeprazole 20 MG CAPSULE.DR PO (06:19)
[2023-08-21 07:54] LABS: Glucose, Whole Blood 123 mg/dL (60-115)
[2023-08-21] MEDS: Thiamine HCL 100 MG TABLET PO (08:49)
[2023-08-21] MEDS: Gabapentin 300 MG CAPSULE 600 MG PO ×4 (08:49→20:59)
[2023-08-21] MEDS: Digoxin 0.125 MG TABLET PO (08:49)
[2023-08-21] MEDS: Ferrous Sulfate 300 MG/5 ML LIQUID PO ×3 (08:49→17:46)
[2023-08-21] MEDS: Apixaban 5 MG TABLET PO ×2 (08:49→20:59)
[2023-08-21] MEDS: Ascorbic Acid 500 MG TABLET PO (08:49)
[2023-08-21] MEDS: acetaZOLAMIDE 250 MG TABLET PO ×2 (08:49→20:59)
[2023-08-21] MEDS: dilTIAZem HCL CD 120 MG CAP.ER.DEG PO (08:49)
[2023-08-21] MEDS: guaiFENesin LA 600 MG TAB.ER.12H PO ×2 (08:49→21:00)
[2023-08-21] MEDS: 0.9 % Sodium Chloride Flush 3 ML SYRINGE IVFLUSH ×3 (08:50→21:01)
[2023-08-21] MEDS: Bumetanide 1 MG TABLET 4 MG PO (08:50)
[2023-08-21] MEDS: Sennosides 8.6 MG TABLET 17.2 MG PO ×2 (08:50→21:00)
[2023-08-21] MEDS: polyethylene glycoL 3350 17 GM POWD.PACK PO (08:50)
[2023-08-21] MEDS: Albuterol/Iprat 2.5/0.5MG 3 ML AMPUL.NEB INHALE ×3 (08:52→15:33)
[2023-08-21 10:19] LABS: Hematocrit 30.6 % (37.0-47.0); Hemoglobin 8.3 g/dl (12.0-16.0); Mean Corpuscular HGB Conc 27.1 g/dl (31.0-35.0); Mean Corpuscular Hemoglobin 22.7 pg (27.0-33.0); Mean Corpuscular Volume 83.6 fL (80.0-98.0); Mean Platelet Volume 9.4 fL (9.4-12.3); Platelet Count 465 X10*3/uL (160-400); Red Blood Count 3.66 X10*6/uL (4.20-5.50); Red Cell Distribution Width 18.5 % (11.0-16.0); White Blood Count 21.4 X10*3/uL (4.8-10.8)
[2023-08-21 10:31] LABS: Anion Gap 14 (12-20); Blood Urea Nitrogen 30 mg/dL (9-16); Calcium 9.3 mg/dL (8.4-10.2); Carbon Dioxide 35 mmol/L (22-29); Chloride 92 mmol/L (96-108); Creatinine Clr Calc Pharmacy 46.7; Estimated Glomerular Filt Rate 42; Glucose Random 134 mg/dL (60-115); Potassium 3.4 mmol/L (3.3-5.1); Sodium 138 mmol/L (135-145)
[2023-08-21 10:54] LABS: NRBC Pct Auto 1.3 /100WBC (0.0-0.2)
--- NOTE | 2023-08-21 13:59 | MHC.CM.PN ---
Pt. has not yet been medically cleared for DC. CM to follow and assist with DC planning.
[2023-08-21 16:01] LABS: Glucose, Whole Blood 151 mg/dL (60-115)
--- NOTE | 2023-08-21 16:56 | P.PNIM_ITS ---
Subjective Subjective Date of Service: 08/21/23 Interval History: Continues to require oxygen; breathing somewhat improved Review of Systems Denies chest pain Admits to shortness of breath with minimal movement Denies nausea vomiting diarrhea Denies fever chills Physical Exam 2 Vital Signs: Vital Signs: Last Vital Signs Temp 97.1 F 08/21/23 14:59 Pulse 76 08/21/23 15:33 Resp 20 08/21/23 15:33 BP 101/53 L 08/21/23 14:59 Pulse Ox 93 08/21/23 14:59 O2 Del Method Nasal Cannula 08/21/23 14:59 O2 Flow Rate 6 08/21/23 14:59 Oxygen Flow Rate 5 08/18/23 11:51 BMI result Body Mass Index 39.8 Const: Other: Awake alert no acute distress Resp: Other: Diminished all [place] with scattered expiratory wheezes Cardio: Other: No S4; positive S1-S2; no S3 murmurs rubs gallops GI: Other: Soft nontender nondistended normoactive bowel sounds Extrem: Other: No edema bilaterally Objective Data Active Medications Acetaminophen (Acetaminophen 325 Mg Tablet) 650 mg PO Q6H PRN PRN Reason: Pain, Mild (Pain Scale 1-3) Acetazolamide (Acetazolamide 250 Mg Tablet) 250 mg PO BID [facility] Stop: 08/23/23 09:01 Last Admin: 08/21/23 08:49 Dose: 250 mg Documented By: MIROSLAVA Albuterol/Ipratropium (Albuterol/Iprat 2.5/0.5mg 3 Ml Ampul.Neb) 3 ml INHALE RQ4H WHILE AWAKE [facility] Last Admin: 08/21/23 15:33 Dose: 3 ml Documented By: RADHA Apixaban (Apixaban 5 Mg Tablet) 5 mg PO BID@0800,2100 [facility] Last Admin: 08/21/23 08:49 Dose: 5 mg Documented By: MIROSLAVA Ascorbic Acid (Ascorbic Acid 500 Mg Tablet) 500 mg PO DAILY@0800 [facility] Last Admin: 08/21/23 08:49 Dose: 500 mg Documented By: MIROSLAVA Bumetanide (Bumetanide 1 Mg Tablet) 4 mg PO DAILY@0800 [facility]; Protocol Last Admin: 08/21/23 08:50 Dose: 4 mg Documented By: MIROSLAVA Dextrose (Dextrose 50 % 25 Gm/50 Ml Syringe) 25 gm IVPUSH Q15M PRN; Protocol PRN Reason: per Hypoglycemia Standing Ord. Digoxin (Digoxin 0.125 Mg Tablet) 0.125 mg PO DAILY@0800 [facility] Last Admin: 08/21/23 08:49 Dose: 0.125 mg Documented By: MIROSLAVA Diltiazem HCl (Diltiazem Hcl Cd 120 Mg Cap.Er.Deg) 120 mg PO DAILY@0800 [facility]; Protocol Last Admin: 08/21/23 08:49 Dose: 120 mg Documented By: MIROSLAVA Diphenhydramine HCl (Diphenhydramine Hcl 50 Mg/Ml Vial) 25 mg IVPUSH Q6H PRN PRN Reason: Itching Last Admin: 08/20/23 20:46 Dose: 25 mg Documented By: LEELA Ferrous Sulfate (Ferrous Sulfate 300 Mg/5 Ml Liquid) 300 mg PO TIDWM [facility] Last Admin: 08/21/23 12:14 Dose: 300 mg Documented By: MIROSLAVA Gabapentin (Gabapentin 300 Mg Capsule) 600 mg PO QID [facility] Last Admin: 08/21/23 12:14 Dose: 600 mg Documented By: MIROSLAVA Glucose (Glucose Gel 15 Gm Gel..Gram.) 15 gm PO Q15M PRN; Protocol PRN Reason: per Hypoglycemia Standing Ord. Guaifenesin (Guaifenesin La 600 Mg Tab.Er.12h) 600 mg PO BID [facility] Last Admin: 08/21/23 08:49 Dose: 600 mg Documented By: MIROSLAVA Guaifenesin/Dextromethorphan (Guaifenesin Dm 200/20/10 Ml 10 Ml Syrup) 10 ml PO Q4H PRN PRN Reason: Cough Melatonin (Melatonin 3 Mg Tablet) 6 mg PO BEDTIME PRN PRN Reason: Insomnia Omeprazole (Omeprazole 20 Mg Capsule.Dr) 20 mg PO DAILY@0630 [facility] Last Admin: 08/21/23 06:19 Dose: 20 mg Documented By: LEELA Polyethylene Glycol (Polyethylene Glycol 3350 17 Gm Powd.Pack) 17 gm PO DAILY@0800 [facility] Last Admin: 08/21/23 08:50 Dose: 17 gm Documented By: MIROSLAVA Senna (Sennosides 8.6 Mg Tablet) 17.2 mg PO BID@0800,2100 [facility] Last Admin: 08/21/23 08:50 Dose: 17.2 mg Documented By: MIROSLAVA Sodium Chloride (0.9 % Sodium Chloride Flush 3 Ml Syringe) 3 ml IVFLUSH QSHIFT [facility] Last Admin: 08/21/23 08:50 Dose: 3 ml Documented By: MIROSLAVA Thiamine HCl (Thiamine Hcl 100 Mg Tablet) 100 mg PO DAILY@0800 [facility] Last Admin: 08/21/23 08:49 Dose: 100 mg Documented By: MIROSLAVA Tramadol HCl (Tramadol Hcl 50 Mg Tablet) 50 mg PO Q4H PRN PRN Reason: Pain, Moderate(Pain Scale 4-6) Last Admin: 08/20/23 20:47 Dose: 50 mg Documented By: LEELA Labs 08/21/23 09:26 08/21/23 09:26 Labs: Laboratory Results - last 24 hr 08/20/23 08/21/23 08/21/23 20:57 07:03 09:26 MCV 83.6 MCH MCHC RDW Plt Count MPV Absolute Nucleated RBC Nucleated RBC % (auto) Anion Gap Estim Creat Clear Calc Estimated GFR POC Glucose 263 H 123 H Random Glucose Calcium 08/21/23 08/21/23 08/21/23 09:26 09:26 09:26 MCV Cancelled MCH 22.7 L Cancelled MCHC 27.1 L Cancelled RDW 18.5 H Plt Count MPV Absolute Nucleated RBC Nucleated RBC % (auto) Anion Gap Estim Creat Clear Calc Estimated GFR POC Glucose Random Glucose Calcium 08/21/23 08/21/23 08/21/23 09:26 09:26 09:26 MCV MCH MCHC RDW Cancelled Plt Count 465 H Cancelled MPV 9.4 Cancelled Absolute Nucleated RBC 0.270 H Nucleated RBC % (auto) Anion Gap Estim Creat Clear Calc Estimated GFR POC Glucose Random Glucose Calcium 08/21/23 08/21/23 08/21/23 09:26 09:26 15:55 MCV MCH MCHC RDW Plt Count MPV Absolute Nucleated RBC Cancelled Nucleated RBC % (auto) 1.3 H Cancelled Anion Gap 14 Estim Creat Clear Calc 46.7 Estimated GFR 42 POC Glucose 151 H Random Glucose 134 H Calcium 9.3 Microbiology Microbiology Results: Microbiology 08/18/23 13:03 Blood Culture - Preliminary Blood - Venous No growth after 48 hours. 08/18/23 13:03 Blood Culture - Preliminary Blood - Venous No growth after 48 hours. Assessment and Plan (1) Respiratory syncytial virus (RSV): Status: Acute (2) Pneumonia: Status: Acute (3) Persistent atrial fibrillation: Status: Acute Plan 72-year-old female with a PMH significant for?chronic atrial fibrillation on Eliquis, HFpEF, insulin-dependent diabetes type 2, COPD on 4 L home O2, lung cancer, and GERD who presents to the ED for evaluation of abnormal labs. Pt will be admitted to the hospital for treatment further evaluation of acute hypoxic respiratory failure in the setting of RSV infection. 1.Acute/chronic hypoxic respiratory failure in the setting of RSV infection -supplemental O2 titrate as indicated -trial nocturnal CPAP -continue supportive therapies 2.Pneumonia/bronchitis -ceftriaxone/azithromycin (4) -DuoNebs q.4 hours p.r.n. -titrate O2 as tolerated 3.Acute on chronic normocytic Anemia with question of GI bleed -GI recommends EGD; requested Pulmonary clearance -hemoglobin stable; pulmonary recommends waiting 7 days prior to exam -follow daily CBC 4.Hypokalemia -repleted -follow renals/divalents 5. Systolic CHF with preserved EF -current we not an active problem -continue outpatient therapies -adjust as indicated 6. Persistent Afib -acceptable rate control -continue diltiazem, digoxin, hold Eliquis as above -resume when clinically appropriate 7.Insulin dependent diabetes type 2 -patient and son declined insulin therapy at this time -follow-up POCs daily Full Code compression boots Pt will require continued inpatient hospitalization for treatment of?acute hypoxic respiratory failure in the setting RSV infection,on IV steroids, breathing treatments, and anemia requiring blood transfusion Quality Stroke Does the patient have a stroke diagnosis?: No VTE Prior VTE?: No VTE Risk Level:: Medical - moderate - high VTE Device Contraindication: Treatment Not Indicated VTE Drug Contraindication: N/A - Med Ordered
[2023-08-21] MEDS: traMADoL HCL 50 MG TABLET PO (21:00)
[2023-08-21 21:01] LABS: Glucose, Whole Blood 158 mg/dL (60-115)
[2023-08-21] MEDS: diphenhydrAMINE HCL 50 MG/ML VIAL 25 MG IVPUSH (21:01)
[2023-08-22] VITALS (11 sets, daily range): BP systolic 108–152; BP diastolic 51–80; PULSE 70–94; RESP 16–22; TEMP 36.1–36.7; O2SAT 92–97
[2023-08-22] MEDS: Omeprazole 20 MG CAPSULE.DR PO (06:09)
[2023-08-22 07:00] LABS: MANUAL DIFF FLAG NO
[2023-08-22 07:03] LABS: Basophils Percent Auto 0.2 % (0-2); Eosinophils Percent Auto 0.2 % (0-4); Hematocrit 32.3 % (37.0-47.0); Hemoglobin 8.9 g/dl (12.0-16.0); Imm Gran Abs Auto 0.43 X10*3/uL (0.00-0.03); Imm Gran Pct Auto 2.3 % (0.0-0.4); Lymphocytes Absolute Auto 2.9 X10*3/uL (1.2-4.9); Lymphocytes Percent Auto 15.3 % (20-40); Mean Corpuscular HGB Conc 27.6 g/dl (31.0-35.0); Mean Corpuscular Hemoglobin 23.5 pg (27.0-33.0); Mean Corpuscular Volume 85.2 fL (80.0-98.0); Mean Platelet Volume 9.4 fL (9.4-12.3); Monocytes Absolute Auto 1.1 X10*3/uL (0.1-1.2); Neutrophils Absolute Auto 14.4 x10*3/uL (2.0-8.3); Platelet Count 450 X10*3/uL (160-400); Red Blood Count 3.79 X10*6/uL (4.20-5.50); Red Cell Distribution Width 19.3 % (11.0-16.0); White Blood Count 18.9 X10*3/uL (4.8-10.8)
[2023-08-22 07:05] LABS: NRBC Pct Auto 1.6 /100WBC (0.0-0.2)
[2023-08-22 07:20] LABS: Alanine Aminotransferase 27 U/L (0-31); Albumin Level 2.9 g/dL (3.5-5.0); Alkaline Phosphatase 115 U/L (39-117); Anion Gap 13 (12-20); Aspartate Amino Transferase 41 U/L (5-31); Bilirubin Total 0.3 mg/dL (0.0-1.0); Blood Urea Nitrogen 37 mg/dL (9-16); Calcium 9.3 mg/dL (8.4-10.2); Carbon Dioxide 35 mmol/L (22-29); Chloride 96 mmol/L (96-108); Creatinine Clr Calc Pharmacy 49.4; Estimated Glomerular Filt Rate 45; Glucose Fasting 111 mg/dL (60-99); Potassium 3.6 mmol/L (3.3-5.1); Sodium 140 mmol/L (135-145); Total Protein 6.3 g/dL (6.5-8.0)
[2023-08-22 08:03] LABS: Glucose, Whole Blood 107 mg/dL (60-115)
[2023-08-22] MEDS: Gabapentin 300 MG CAPSULE 600 MG PO ×4 (09:13→20:41)
[2023-08-22] MEDS: Thiamine HCL 100 MG TABLET PO (09:14)
[2023-08-22] MEDS: Bumetanide 1 MG TABLET 4 MG PO (09:15)
[2023-08-22] MEDS: polyethylene glycoL 3350 17 GM POWD.PACK PO (09:16)
[2023-08-22] MEDS: dilTIAZem HCL CD 120 MG CAP.ER.DEG PO (09:16)
[2023-08-22] MEDS: Sennosides 8.6 MG TABLET 17.2 MG PO ×2 (09:16→20:41)
[2023-08-22] MEDS: Ascorbic Acid 500 MG TABLET PO (09:17)
[2023-08-22] MEDS: acetaZOLAMIDE 250 MG TABLET PO ×2 (09:17→20:41)
[2023-08-22] MEDS: Digoxin 0.125 MG TABLET PO (09:17)
[2023-08-22] MEDS: guaiFENesin LA 600 MG TAB.ER.12H PO ×2 (09:17→20:41)
[2023-08-22] MEDS: Ferrous Sulfate 300 MG/5 ML LIQUID PO ×3 (09:17→16:01)
[2023-08-22] MEDS: 0.9 % Sodium Chloride Flush 3 ML SYRINGE IVFLUSH ×3 (09:17→20:46)
[2023-08-22] MEDS: traMADoL HCL 50 MG TABLET PO ×2 (09:34→20:41)
[2023-08-22] MEDS: Albuterol/Iprat 2.5/0.5MG 3 ML AMPUL.NEB INHALE ×3 (09:38→15:45)
--- NOTE | 2023-08-22 11:03 | P.PNIM_ITS ---
Subjective Subjective Date of Service: 08/22/23 Interval History: No acute issues overnight. Slow to improve. Tolerating slow wean of O2 Review of Systems Denies chest pain Admits to shortness of breath with minimal movement Denies nausea vomiting diarrhea Denies fever chills Physical Exam 2 Vital Signs: Vital Signs: Last Vital Signs Temp 97.8 F 08/22/23 07:08 Pulse 76 08/22/23 09:39 Resp 18 08/22/23 09:39 BP 136/60 08/22/23 07:08 Pulse Ox 97 08/22/23 07:08 O2 Del Method Nasal Cannula 08/22/23 07:08 O2 Flow Rate 7 08/22/23 07:08 Oxygen Flow Rate 5 08/18/23 11:51 BMI result Body Mass Index 39.8 Const: Other: Awake alert no acute distress Resp: Other: Diminished all [place] with scattered expiratory wheezes Cardio: Other: No S4; positive S1-S2; no S3 murmurs rubs gallops GI: Other: Soft nontender nondistended normoactive bowel sounds Extrem: Other: No edema bilaterally Objective Data Active Medications Acetaminophen (Acetaminophen 325 Mg Tablet) 650 mg PO Q6H PRN PRN Reason: Pain, Mild (Pain Scale 1-3) Acetazolamide (Acetazolamide 250 Mg Tablet) 250 mg PO BID [facility] Stop: 08/23/23 09:01 Last Admin: 08/22/23 09:17 Dose: 250 mg Documented By: MIROSLAVA Albuterol/Ipratropium (Albuterol/Iprat 2.5/0.5mg 3 Ml Ampul.Neb) 3 ml INHALE RQ4H WHILE AWAKE [facility] Last Admin: 08/22/23 09:38 Dose: 3 ml Documented By: RITA Apixaban (Apixaban 5 Mg Tablet) 5 mg PO BID@0800,2100 [facility] Last Admin: 08/22/23 09:36 Dose: Not Given Documented By: MIROSLAVA Non-Admin Reason: Physician Held Med Ascorbic Acid (Ascorbic Acid 500 Mg Tablet) 500 mg PO DAILY@0800 [facility] Last Admin: 08/22/23 09:17 Dose: 500 mg Documented By: MIROSLAVA Bumetanide (Bumetanide 1 Mg Tablet) 4 mg PO DAILY@0800 [facility]; Protocol Last Admin: 08/22/23 09:15 Dose: 4 mg Documented By: MIROSLAVA Dextrose (Dextrose 50 % 25 Gm/50 Ml Syringe) 25 gm IVPUSH Q15M PRN; Protocol PRN Reason: per Hypoglycemia Standing Ord. Digoxin (Digoxin 0.125 Mg Tablet) 0.125 mg PO DAILY@0800 [facility] Last Admin: 08/22/23 09:17 Dose: 0.125 mg Documented By: MIROSLAVA Diltiazem HCl (Diltiazem Hcl Cd 120 Mg Cap.Er.Deg) 120 mg PO DAILY@0800 [facility]; Protocol Last Admin: 08/22/23 09:16 Dose: 120 mg Documented By: MIROSLAVA Diphenhydramine HCl (Diphenhydramine Hcl 50 Mg/Ml Vial) 25 mg IVPUSH Q6H PRN PRN Reason: Itching Last Admin: 08/21/23 21:01 Dose: 25 mg Documented By: REYMUNDO Ferrous Sulfate (Ferrous Sulfate 300 Mg/5 Ml Liquid) 300 mg PO TIDWM [facility] Last Admin: 08/22/23 09:17 Dose: 300 mg Documented By: MIROSLAVA Gabapentin (Gabapentin 300 Mg Capsule) 600 mg PO QID [facility] Last Admin: 08/22/23 09:13 Dose: 600 mg Documented By: MIROSLAVA Glucose (Glucose Gel 15 Gm Gel..Gram.) 15 gm PO Q15M PRN; Protocol PRN Reason: per Hypoglycemia Standing Ord. Guaifenesin (Guaifenesin La 600 Mg Tab.Er.12h) 600 mg PO BID [facility] Last Admin: 08/22/23 09:17 Dose: 600 mg Documented By: MIROSLAVA Guaifenesin/Dextromethorphan (Guaifenesin Dm 200/20/10 Ml 10 Ml Syrup) 10 ml PO Q4H PRN PRN Reason: Cough Melatonin (Melatonin 3 Mg Tablet) 6 mg PO BEDTIME PRN PRN Reason: Insomnia Omeprazole (Omeprazole 20 Mg Capsule.Dr) 20 mg PO DAILY@0630 [facility] Last Admin: 08/22/23 06:09 Dose: 20 mg Documented By: DEN Polyethylene Glycol (Polyethylene Glycol 3350 17 Gm Powd.Pack) 17 gm PO DAILY@0800 [facility] Last Admin: 08/22/23 09:16 Dose: 17 gm Documented By: MIROSLAVA Senna (Sennosides 8.6 Mg Tablet) 17.2 mg PO BID@0800,2100 [facility] Last Admin: 08/22/23 09:16 Dose: 17.2 mg Documented By: MIROSLAVA Sodium Chloride (0.9 % Sodium Chloride Flush 3 Ml Syringe) 3 ml IVFLUSH QSHIFT [facility] Last Admin: 08/22/23 09:17 Dose: 3 ml Documented By: MIROSLAVA Thiamine HCl (Thiamine Hcl 100 Mg Tablet) 100 mg PO DAILY@0800 [facility] Last Admin: 08/22/23 09:14 Dose: 100 mg Documented By: MIROSLAVA Tramadol HCl (Tramadol Hcl 50 Mg Tablet) 50 mg PO Q4H PRN PRN Reason: Pain, Moderate(Pain Scale 4-6) Last Admin: 08/22/23 09:34 Dose: 50 mg Documented By: MIROSLAVA Labs 08/22/23 06:39 08/22/23 06:39 Labs: Laboratory Results - last 24 hr 08/21/23 08/21/23 08/22/23 15:55 20:57 06:39 MCV 85.2 MCH 23.5 L MCHC 27.6 L RDW 19.3 H Plt Count 450 H MPV 9.4 Immature Gran % (Auto) 2.3 H Neut % (Auto) 76.0 H Lymph % (Auto) 15.3 L Teller % (Auto) 6.0 Eos % (Auto) 0.2 Baso % (Auto) 0.2 Lymph # (Auto) 2.9 Teller # (Auto) 1.1 Eos # (Auto) 0.0 Baso # (Auto) 0.0 Abs Immat Gran (auto) 0.43 H Absolute Neuts (auto) 14.4 H Absolute Nucleated RBC 0.300 H Nucleated RBC % (auto) 1.6 H Anion Gap 13 Estim Creat Clear Calc 49.4 Estimated GFR 45 POC Glucose 151 H 158 H Fasting Glucose 111 H Calcium 9.3 Total Bilirubin 0.3 AST 41 H ALT 27 Alkaline Phosphatase 115 Total Protein 6.3 L Albumin 2.9 L 08/22/23 07:10 MCV MCH MCHC RDW Plt Count MPV Immature Gran % (Auto) Neut % (Auto) Lymph % (Auto) Teller % (Auto) Eos % (Auto) Baso % (Auto) Lymph # (Auto) Teller # (Auto) Eos # (Auto) Baso # (Auto) Abs Immat Gran (auto) Absolute Neuts (auto) Absolute Nucleated RBC Nucleated RBC % (auto) Anion Gap Estim Creat Clear Calc Estimated GFR POC Glucose 107 Fasting Glucose Calcium Total Bilirubin AST ALT Alkaline Phosphatase Total Protein Albumin Assessment and Plan (1) Acute and chronic respiratory failure, unspecified whether with hypoxia or hypercapnia: Status: Acute (2) COPD (chronic obstructive pulmonary disease): Status: Acute (3) Pneumonia: Status: Acute Plan 72-year-old female with a PMH significant for?chronic atrial fibrillation on Eliquis, HFpEF, insulin-dependent diabetes type 2, COPD on 4 L home O2, lung cancer, and GERD who presents to the ED for evaluation of abnormal labs. Pt will be admitted to the hospital for treatment further evaluation of acute hypoxic respiratory failure in the setting of RSV infection. 1.Acute/chronic hypercarbic/hypoxic respiratory failure in the setting of RSV infection/COPD -supplemental O2 titrate as indicated -patient will require non invasive ventilator at home to help with gas exchange and reduce readmissions along with improving quality of her life -continue supportive therapies 2.Pneumonia/bronchitis -ceftriaxone/azithromycin (4) -DuoNebs q.4 hours p.r.n. -titrate O2 as tolerated -switch to oral therapies upon DC 3.Acute on chronic normocytic Anemia with question of GI bleed -GI recommends EGD; requested Pulmonary clearance -hemoglobin stable; pulmonary recommends waiting 7 days prior to exam... GI aware -follow daily CBC 4.Hypokalemia -repleted -follow renals/divalents 5. Systolic CHF with preserved EF -current we not an active problem -continue outpatient therapies -adjust as indicated 6. Persistent Afib -acceptable rate control -continue diltiazem, digoxin, hold Eliquis pending EGD 7.Insulin dependent diabetes type 2 -patient and son declined insulin therapy at this time -follow-up POCs daily Full Code compression boots Pt will require continued inpatient hospitalization for treatment of?acute hypoxic respiratory failure in the setting RSV infection,on IV steroids, breathing treatments, and anemia requiring blood transfusion Quality Stroke Does the patient have a stroke diagnosis?: No VTE Prior VTE?: No VTE Risk Level:: Medical - moderate - high VTE Device Contraindication: Treatment Not Indicated VTE Drug Contraindication: N/A - Med Ordered
[2023-08-22 11:17] LABS: Glucose, Whole Blood 146 mg/dL (60-115)
[2023-08-22 16:25] LABS: Glucose, Whole Blood 136 mg/dL (60-115)
[2023-08-22 20:09] LABS: Glucose, Whole Blood 190 mg/dL (60-115)
[2023-08-22] MEDS: diphenhydrAMINE HCL 50 MG/ML VIAL 25 MG IVPUSH (20:44)
[2023-08-22 22:07] LABS: Glucose, Whole Blood 160 mg/dL (60-115)
[2023-08-23] VITALS (9 sets, daily range): BP systolic 121–135; BP diastolic 60–89; PULSE 71–91; RESP 16–20; TEMP 36–36.7; O2SAT 92–100
[2023-08-23] MEDS: Omeprazole 20 MG CAPSULE.DR PO (06:15)
[2023-08-23 07:16] LABS: MANUAL DIFF FLAG NO
[2023-08-23 07:18] LABS: Basophils Absolute Auto 0.1 X10*3/uL (0.0-0.2); Basophils Percent Auto 0.3 % (0-2); Eosinophils Absolute Auto 0.3 X10*3/uL (0.0-0.4); Eosinophils Percent Auto 1.6 % (0-4); Hematocrit 33.2 % (37.0-47.0); Imm Gran Abs Auto 0.46 X10*3/uL (0.00-0.03); Imm Gran Pct Auto 2.5 % (0.0-0.4); Lymphocytes Absolute Auto 2.8 X10*3/uL (1.2-4.9); Lymphocytes Percent Auto 15.4 % (20-40); Mean Corpuscular HGB Conc 27.1 g/dl (31.0-35.0); Mean Corpuscular Hemoglobin 23.2 pg (27.0-33.0); Mean Corpuscular Volume 85.6 fL (80.0-98.0); Monocytes Absolute Auto 0.9 X10*3/uL (0.1-1.2); Monocytes Percent Auto 4.7 % (2-11); Neutrophils Absolute Auto 13.7 x10*3/uL (2.0-8.3); Neutrophils Percent Auto 75.5 % (45-73); Platelet Count 425 X10*3/uL (160-400); Red Blood Count 3.88 X10*6/uL (4.20-5.50); White Blood Count 18.1 X10*3/uL (4.8-10.8)
[2023-08-23 07:19] LABS: NRBC Pct Auto 1.1 /100WBC (0.0-0.2)
[2023-08-23 07:34] LABS: Alanine Aminotransferase 32 U/L (0-31); Alkaline Phosphatase 116 U/L (39-117); Anion Gap 10 (12-20); Aspartate Amino Transferase 41 U/L (5-31); Bilirubin Total 0.2 mg/dL (0.0-1.0); Blood Urea Nitrogen 36 mg/dL (9-16); Calcium 9.5 mg/dL (8.4-10.2); Carbon Dioxide 35 mmol/L (22-29); Chloride 98 mmol/L (96-108); Estimated Glomerular Filt Rate 44; Glucose Fasting 115 mg/dL (60-99); Potassium 3.4 mmol/L (3.3-5.1); Sodium 140 mmol/L (135-145); Total Protein 6.5 g/dL (6.5-8.0)
--- NOTE | 2023-08-23 09:16 | MHC.CM.PN ---
[facility] REVIEWED, PER RESPIRATORY THEY ARE WORKING ON [facility] AND [facility] WILL HAVE IN PLACE BY END OF WEEK, [facility] FOLLOWING AND CM WILL CONT TO FOLLOW DC NEEDS.
[2023-08-23] MEDS: Sennosides 8.6 MG TABLET 17.2 MG PO ×2 (09:42→20:10)
[2023-08-23] MEDS: Digoxin 0.125 MG TABLET PO (09:42)
[2023-08-23] MEDS: guaiFENesin LA 600 MG TAB.ER.12H PO ×2 (09:42→20:10)
[2023-08-23] MEDS: Bumetanide 1 MG TABLET 4 MG PO (09:42)
[2023-08-23] MEDS: acetaZOLAMIDE 250 MG TABLET PO (09:42)
[2023-08-23] MEDS: Gabapentin 300 MG CAPSULE 600 MG PO ×4 (09:42→20:10)
[2023-08-23] MEDS: Thiamine HCL 100 MG TABLET PO (09:43)
[2023-08-23] MEDS: polyethylene glycoL 3350 17 GM POWD.PACK PO (09:43)
[2023-08-23] MEDS: 0.9 % Sodium Chloride Flush 3 ML SYRINGE IVFLUSH ×3 (09:43→23:18)
[2023-08-23] MEDS: Ferrous Sulfate 300 MG/5 ML LIQUID PO ×3 (09:43→16:23)
[2023-08-23] MEDS: dilTIAZem HCL CD 120 MG CAP.ER.DEG PO (09:43)
[2023-08-23] MEDS: Ascorbic Acid 500 MG TABLET PO (09:43)
[2023-08-23 10:09] LABS: Glucose, Whole Blood 165 mg/dL (60-115)
[2023-08-23] MEDS: Albuterol/Iprat 2.5/0.5MG 3 ML AMPUL.NEB INHALE ×3 (11:37→19:52)
--- NOTE | 2023-08-23 14:18 | HO.PM.IMPN ---
Subjective Subjective Date of Service: 08/23/23 Interval History: No acute issues overnight. Tolerating O2 wean Review of Systems Denies chest pain Admits to shortness of breath with minimal movement Denies nausea vomiting diarrhea Denies fever chills Physical Exam Vital Signs: Vital Signs: Last Vital Signs Temp 96.8 F 08/23/23 11:20 Pulse 86 08/23/23 11:38 Resp 16 08/23/23 11:38 BP 130/89 08/23/23 11:20 Pulse Ox 93 08/23/23 11:20 O2 Del Method Nasal Cannula 08/23/23 11:20 O2 Flow Rate 4 08/23/23 11:20 Oxygen Flow Rate 5 08/18/23 11:51 BMI result Body Mass Index 39.8 Const: Other: Awake alert no acute distress Resp: Other: Diminished all [place] with scattered expiratory wheezes Cardio: Other: No S4; positive S1-S2; no S3 murmurs rubs gallops GI: Other: Soft nontender nondistended normoactive bowel sounds Extrem: Other: No edema bilaterally Objective Data Active Medications Acetaminophen (Acetaminophen 325 Mg Tablet) 650 mg PO Q6H PRN PRN Reason: Pain, Mild (Pain Scale 1-3) Albuterol/Ipratropium (Albuterol/Iprat 2.5/0.5mg 3 Ml Ampul.Neb) 3 ml INHALE RQ4H WHILE AWAKE [facility] Last Admin: 08/23/23 11:37 Dose: 3 ml Documented By: RITA Apixaban (Apixaban 5 Mg Tablet) 5 mg PO BID@0800,2100 [facility] Last Admin: 08/22/23 09:36 Dose: Not Given Documented By: MIROSLAVA Non-Admin Reason: Physician Held Med Ascorbic Acid (Ascorbic Acid 500 Mg Tablet) 500 mg PO DAILY@0800 [facility] Last Admin: 08/23/23 09:43 Dose: 500 mg Documented By: STEVE Bumetanide (Bumetanide 1 Mg Tablet) 4 mg PO DAILY@0800 [facility]; Protocol Last Admin: 08/23/23 09:42 Dose: 4 mg Documented By: STEVE Dextrose (Dextrose 50 % 25 Gm/50 Ml Syringe) 25 gm IVPUSH Q15M PRN; Protocol PRN Reason: per Hypoglycemia Standing Ord. Digoxin (Digoxin 0.125 Mg Tablet) 0.125 mg PO DAILY@0800 [facility] Last Admin: 08/23/23 09:42 Dose: 0.125 mg Documented By: STEVE Diltiazem HCl (Diltiazem Hcl Cd 120 Mg Cap.Er.Deg) 120 mg PO DAILY@0800 [facility]; Protocol Last Admin: 08/23/23 09:43 Dose: 120 mg Documented By: STEVE Diphenhydramine HCl (Diphenhydramine Hcl 50 Mg/Ml Vial) 25 mg IVPUSH Q6H PRN PRN Reason: Itching Last Admin: 08/22/23 20:44 Dose: 25 mg Documented By: REYMUNDO Ferrous Sulfate (Ferrous Sulfate 300 Mg/5 Ml Liquid) 300 mg PO TIDWM [facility] Last Admin: 08/23/23 12:10 Dose: 300 mg Documented By: STEVE Gabapentin (Gabapentin 300 Mg Capsule) 600 mg PO QID [facility] Last Admin: 08/23/23 12:10 Dose: 600 mg Documented By: STEVE Glucose (Glucose Gel 15 Gm Gel..Gram.) 15 gm PO Q15M PRN; Protocol PRN Reason: per Hypoglycemia Standing Ord. Guaifenesin (Guaifenesin La 600 Mg Tab.Er.12h) 600 mg PO BID [facility] Last Admin: 08/23/23 09:42 Dose: 600 mg Documented By: STEVE Guaifenesin/Dextromethorphan (Guaifenesin Dm 200/20/10 Ml 10 Ml Syrup) 10 ml PO Q4H PRN PRN Reason: Cough Melatonin (Melatonin 3 Mg Tablet) 6 mg PO BEDTIME PRN PRN Reason: Insomnia Omeprazole (Omeprazole 20 Mg Capsule.Dr) 20 mg PO DAILY@0630 [facility] Last Admin: 08/23/23 06:15 Dose: 20 mg Documented By: REYMUNDO Polyethylene Glycol (Polyethylene Glycol 3350 17 Gm Powd.Pack) 17 gm PO DAILY@0800 [facility] Last Admin: 08/23/23 09:43 Dose: 17 gm Documented By: STEVE Senna (Sennosides 8.6 Mg Tablet) 17.2 mg PO BID@0800,2100 [facility] Last Admin: 08/23/23 09:42 Dose: 17.2 mg Documented By: STEVE Sodium Chloride (0.9 % Sodium Chloride Flush 3 Ml Syringe) 3 ml IVFLUSH QSHIFT [facility] Last Admin: 08/23/23 09:43 Dose: 3 ml Documented By: STEVE Thiamine HCl (Thiamine Hcl 100 Mg Tablet) 100 mg PO DAILY@0800 [facility] Last Admin: 08/23/23 09:43 Dose: 100 mg Documented By: STEVE Tramadol HCl (Tramadol Hcl 50 Mg Tablet) 50 mg PO Q4H PRN PRN Reason: Pain, Moderate(Pain Scale 4-6) Last Admin: 08/22/23 20:41 Dose: 50 mg Documented By: REYMUNDO Labs 08/23/23 06:59 08/23/23 06:59 Labs: Laboratory Results - last 24 hr 08/22/23 08/22/23 08/22/23 16:10 20:06 22:04 MCV MCH MCHC RDW Plt Count MPV Immature Gran % (Auto) Neut % (Auto) Lymph % (Auto) Person % (Auto) Eos % (Auto) Baso % (Auto) Lymph # (Auto) Person # (Auto) Eos # (Auto) Baso # (Auto) Abs Immat Gran (auto) Absolute Neuts (auto) Absolute Nucleated RBC Nucleated RBC % (auto) Anion Gap Estim Creat Clear Calc Estimated GFR POC Glucose 136 H 190 H 160 H Fasting Glucose Calcium Total Bilirubin AST ALT Alkaline Phosphatase Total Protein Albumin 08/23/23 08/23/23 06:59 10:05 MCV 85.6 MCH 23.2 L MCHC 27.1 L RDW 20.0 H Plt Count 425 H MPV 9.0 L Immature Gran % (Auto) 2.5 H Neut % (Auto) 75.5 H Lymph % (Auto) 15.4 L Person % (Auto) 4.7 Eos % (Auto) 1.6 Baso % (Auto) 0.3 Lymph # (Auto) 2.8 Person # (Auto) 0.9 Eos # (Auto) 0.3 Baso # (Auto) 0.1 Abs Immat Gran (auto) 0.46 H Absolute Neuts (auto) 13.7 H Absolute Nucleated RBC 0.200 H Nucleated RBC % (auto) 1.1 H Anion Gap 10 L Estim Creat Clear Calc 49.0 Estimated GFR 44 POC Glucose 165 H Fasting Glucose 115 H Calcium 9.5 Total Bilirubin 0.2 AST 41 H ALT 32 H Alkaline Phosphatase 116 Total Protein 6.5 Albumin 3.0 L Assessment and Plan (1) Acute and chronic respiratory failure, unspecified whether with hypoxia or hypercapnia: Status: Acute (2) Pneumonia: Status: Acute Plan 72-year-old female with a PMH significant for?chronic atrial fibrillation on Eliquis, HFpEF, insulin-dependent diabetes type 2, COPD on 4 L home O2, lung cancer, and GERD who presents to the ED for evaluation of abnormal labs. Pt will be admitted to the hospital for treatment further evaluation of acute hypoxic respiratory failure in the setting of RSV infection. 1.Acute/chronic hypercarbic/hypoxic respiratory failure in the setting of RSV infection/COPD -supplemental O2 titrate as indicated -patient will require non invasive ventilator at home to help with gas exchange and reduce readmissions along with improving quality of her life -ordered; notify respiratory therapy for discharge to arrange delivery -continue supportive therapies 2.Pneumonia/bronchitis -ceftriaxone/azithromycin (5) -DuoNebs q.4 hours p.r.n. -titrate O2 as tolerated -switch to oral therapies upon DC 3.Acute on chronic normocytic Anemia with question of GI bleed -GI recommends EGD; requested Pulmonary clearance -hemoglobin stable; pulmonary recommends waiting 7 days prior to exam... GI aware -follow daily CBC 4.Hypokalemia -repleted -follow renals/divalents 5. Systolic CHF with preserved EF -current we not an active problem -continue outpatient therapies -adjust as indicated 6. Persistent Afib -acceptable rate control -continue diltiazem, digoxin, hold Eliquis pending EGD 7.Insulin dependent diabetes type 2 -patient and son declined insulin therapy at this time -follow-up POCs daily Full Code compression boots Pt will require continued inpatient hospitalization for treatment of?acute hypoxic respiratory failure in the setting RSV infection,on IV steroids, breathing treatments, and anemia requiring blood transfusion Quality Stroke Does the patient have a stroke diagnosis?: No VTE Prior VTE?: No VTE Risk Level:: Medical - moderate - high VTE Device Contraindication: Treatment Not Indicated VTE Drug Contraindication: N/A - Med Ordered
--- NOTE | 2023-08-23 14:34 | P.CDIM_ITS ---
PROVIDER RESPONSE TEXT: To clarify, the appropriate diagnosis supported by the clinical indicators: Acute QUERY TEXT: PHYSICIAN'S DOCUMENTATION REQUEST Date of Query: 08/22/2023 07:54 AM EST Patient Name: Nicole Goldstein Admit Date: 08/19/2023 Dear Mina Hurley, A review of the medical record indicates additional documentation may be needed. Please review below and update the documentation accordingly. Clinical Indicators: PN: Assessment and plan - Pneumonia/bronchitis ceftriaxone/azithromycin (4) continue supportive therapies Clarify which of the following accurately represents the acuity of the Bronchitis: Acute Acute on chronic Chronic stable condition Other (explain) Clinically unable to determine (explain) Thank you, Joaquina Robins, CCS, CDIS Use of terms such as suspected, likely, concern for, or probable (associated with a specific diagnosi s that is being evaluated, monitored, or treated as if it exists) are acceptable and can be coded in the inpatient se tting, when documented at the time of discharge. Please use your independent medical judgment in providing your response. THIS QUERY IS PART OF THE PERMANENT MEDICAL RECORD
--- NOTE | 2023-08-23 14:34 | P.CDIM_ITS ---
PROVIDER RESPONSE TEXT: To clarify, the appropriate diagnosis supported by the clinical indicators: Sepsis is/was present and is a clinical diagnosis based on QUERY TEXT: PHYSICIAN'S DOCUMENTATION REQUEST Date of Query: 08/22/2023 07:47 AM EST Patient Name: Nicole Goldstein Admit Date: 08/19/2023 Dear Mina Hurley, A review of the medical record indicates additional documentation may be needed. Please review below and update the documentation accordingly. Clinical indicators: H&P 08/18 - Viral sepsis, Pt positive for RSV, no indication at this time of bacterial infection WBC's chronically elevated; tachypnea secondary to hypoxia. Lactic acid WNL at 1.7 Progress notes dated 08/19 & 08/20: Assessment and plan- Viral Sepsis-positive for RSV WBC 20.8 LA 1.7 TEMP 98.4 HR 89 RR 21 Sepsis Systemic manifestations of infection, with 2 or more SIRS criteria which include: Fever > 100.4?F or hypothermia < 96.8?F Leukocytosis - WBC > 12,000 or leukopenia, WBC < 4,000, or > 10% bands Tachycardia- > 90 beats/minute Tachypnea- RR > 20 breaths/minute or PaCO2 < 32mmHg Based on the above information and the recognized standard for sepsis, could you please clarify if th is diagnoses is still accurate and reflective of the patient's condition to ensure quality of the medical record. Sepsis is/was present and is a clinical diagnosis based on After study (the condition) has been ruled out Other (explain) Clinically unable to determine (explain) Thank you, Joaquina Robins, CCS, CDIS Use of terms such as suspected, likely, concern for, or probable (associated with a specific diagnosi s that is being evaluated, monitored, or treated as if it exists) are acceptable and can be coded in the inpatient se tting, when documented at the time of discharge. Please use your independent medical judgment in providing your response. THIS QUERY IS PART OF THE PERMANENT MEDICAL RECORD
[2023-08-23 20:55] LABS: Glucose, Whole Blood 164 mg/dL (60-115)
[2023-08-24] VITALS (7 sets, daily range): BP systolic 113–143; BP diastolic 58–67; PULSE 68–84; RESP 16–20; TEMP 36.1–37.3; O2SAT 76–96
[2023-08-24 07:48] LABS: Glucose, Whole Blood 90 mg/dL (60-115)
[2023-08-24] MEDS: 0.9 % Sodium Chloride Flush 3 ML SYRINGE IVFLUSH ×3 (09:32→22:57)
[2023-08-24] MEDS: Ferrous Sulfate 300 MG/5 ML LIQUID PO ×2 (09:32→17:45)
[2023-08-24] MEDS: polyethylene glycoL 3350 17 GM POWD.PACK PO ×2 (09:32→18:17)
[2023-08-24] MEDS: guaiFENesin LA 600 MG TAB.ER.12H PO ×2 (09:33→21:01)
[2023-08-24] MEDS: Sennosides 8.6 MG TABLET 17.2 MG PO ×2 (09:33→21:01)
[2023-08-24] MEDS: Omeprazole 20 MG CAPSULE.DR PO (09:33)
[2023-08-24] MEDS: Ascorbic Acid 500 MG TABLET PO (09:34)
[2023-08-24] MEDS: Gabapentin 300 MG CAPSULE 600 MG PO ×3 (09:34→21:01)
[2023-08-24] MEDS: Bumetanide 1 MG TABLET 4 MG PO (09:34)
[2023-08-24] MEDS: dilTIAZem HCL CD 120 MG CAP.ER.DEG PO (09:34)
[2023-08-24] MEDS: Thiamine HCL 100 MG TABLET PO (09:34)
[2023-08-24] MEDS: Digoxin 0.125 MG TABLET PO (09:35)
[2023-08-24 10:34] LABS: Glucose, Whole Blood 190 mg/dL (60-115)
--- NOTE | 2023-08-24 11:34 | PC.RT ---
spoke with Alissa this am. they are aware of patients dc tomorrow at 11am. Alissa plans on teaching family and pt tomorrow when she gets home. pt now on 3 liters oxygen baseline
--- NOTE | 2023-08-24 12:23 | MHC.CM.PN ---
EMR REVIEWED, CM SPOKE W/PT'S SON DIANNA BOWEN TO DISCUSS DISPO, DIANNA IS AWARE THAT [facility] WILL DELIVER [facility]ATH[facility] VENT ONCE PT ARRIVES HOME AND A RESPIRATORY THERAPIST FROM [facility] WILL DO IN HOME TEACHING ONCE VENT IS DELIVERED, VENT WILL BE USED AT [facility] INSTEAD OF A CPAP/BIPAP, DIANNA AGREEABLE TO 11AM BLS TRANSPORT VIA [place] AND REPORTS HE WILL CONTACT CM IF THERE ARE ANY ISSUES W/GETTING IN TOUCH W/[facility] HE HAS ATTEMPTED TO CONTACT THEM AND HAS NOT HEARD BACK, TRANSPORT PREBOOKED AND CM WILL CONT TO FOLLOW.
--- NOTE | 2023-08-24 14:05 | HO.PM.IMPN ---
Subjective Subjective Date of Service: 08/24/23 Interval History: back on home O2 3L denies dyspnea refused lab draw today Review of Systems Review of Systems: Yes all other systems are reviewed and are negative Physical Exam Vital Signs: Vital Signs: Last Vital Signs Temp 97.2 F 08/24/23 11:24 Pulse 76 08/24/23 11:24 Resp 18 08/24/23 11:24 BP 140/67 H 08/24/23 11:24 Pulse Ox 96 08/24/23 11:24 O2 Del Method Nasal Cannula 08/24/23 11:24 O2 Flow Rate 4 08/24/23 11:24 Oxygen Flow Rate 5 08/18/23 11:51 BMI result Body Mass Index 39.8 Gen: in no acute distress HEENT: sclera anicteric, moist mucus membranes Neck: supple Lungs: scattered exp wheezes Heart: irregular, no murmurs Abd: soft, non-tender, non-distended Ext: no edema Skin: warm/well-perfused Neuro: alert and oriented x3, no focal findings Psych: appropriate affect Objective Data Active Medications Acetaminophen (Acetaminophen 325 Mg Tablet) 650 mg PO Q6H PRN PRN Reason: Pain, Mild (Pain Scale 1-3) Albuterol/Ipratropium (Albuterol/Iprat 2.5/0.5mg 3 Ml Ampul.Neb) 3 ml INHALE RQ4H WHILE AWAKE [facility] Last Admin: 08/24/23 11:12 Dose: Not Given Documented By: GREGG Non-Admin Reason: Patient Refused Apixaban (Apixaban 5 Mg Tablet) 5 mg PO BID@0800,2100 [facility] Last Admin: 08/22/23 09:36 Dose: Not Given Documented By: MIROSLAVA Non-Admin Reason: Physician Held Med Ascorbic Acid (Ascorbic Acid 500 Mg Tablet) 500 mg PO DAILY@0800 [facility] Last Admin: 08/24/23 09:34 Dose: 500 mg Documented By: MARCELA Bumetanide (Bumetanide 1 Mg Tablet) 4 mg PO DAILY@0800 [facility]; Protocol Last Admin: 08/24/23 09:34 Dose: 4 mg Documented By: MARCELA Dextrose (Dextrose 50 % 25 Gm/50 Ml Syringe) 25 gm IVPUSH Q15M PRN; Protocol PRN Reason: per Hypoglycemia Standing Ord. Digoxin (Digoxin 0.125 Mg Tablet) 0.125 mg PO DAILY@0800 [facility] Last Admin: 08/24/23 09:35 Dose: 0.125 mg Documented By: MARCELA Diltiazem HCl (Diltiazem Hcl Cd 120 Mg Cap.Er.Deg) 120 mg PO DAILY@0800 [facility]; Protocol Last Admin: 08/24/23 09:34 Dose: 120 mg Documented By: MARCELA Diphenhydramine HCl (Diphenhydramine Hcl 50 Mg/Ml Vial) 25 mg IVPUSH Q6H PRN PRN Reason: Itching Last Admin: 08/22/23 20:44 Dose: 25 mg Documented By: REYMUNDO Ferrous Sulfate (Ferrous Sulfate 300 Mg/5 Ml Liquid) 300 mg PO TIDWM [facility] Last Admin: 08/24/23 13:54 Dose: Not Given Documented By: OLIVER Non-Admin Reason: Patient Refused Gabapentin (Gabapentin 300 Mg Capsule) 600 mg PO QID [facility] Last Admin: 08/24/23 13:55 Dose: Not Given Documented By: OLIVER Non-Admin Reason: Patient Refused Glucose (Glucose Gel 15 Gm Gel..Gram.) 15 gm PO Q15M PRN; Protocol PRN Reason: per Hypoglycemia Standing Ord. Guaifenesin (Guaifenesin La 600 Mg Tab.Er.12h) 600 mg PO BID [facility] Last Admin: 08/24/23 09:33 Dose: 600 mg Documented By: MARCELA Guaifenesin/Dextromethorphan (Guaifenesin Dm 200/20/10 Ml 10 Ml Syrup) 10 ml PO Q4H PRN PRN Reason: Cough Melatonin (Melatonin 3 Mg Tablet) 6 mg PO BEDTIME PRN PRN Reason: Insomnia Omeprazole (Omeprazole 20 Mg Capsule.Dr) 20 mg PO DAILY@0630 [facility] Last Admin: 08/24/23 09:33 Dose: 20 mg Documented By: MARCELA Polyethylene Glycol (Polyethylene Glycol 3350 17 Gm Powd.Pack) 17 gm PO DAILY@0800 [facility] Last Admin: 08/24/23 09:32 Dose: 17 gm Documented By: MARCELA Senna (Sennosides 8.6 Mg Tablet) 17.2 mg PO BID@0800,2100 [facility] Last Admin: 08/24/23 09:33 Dose: 17.2 mg Documented By: MARCELA Sodium Chloride (0.9 % Sodium Chloride Flush 3 Ml Syringe) 3 ml IVFLUSH QSHIFT [facility] Last Admin: 08/24/23 09:32 Dose: 3 ml Documented By: MARCELA Thiamine HCl (Thiamine Hcl 100 Mg Tablet) 100 mg PO DAILY@0800 [facility] Last Admin: 08/24/23 09:34 Dose: 100 mg Documented By: MARCELA Labs 08/23/23 06:59 08/23/23 06:59 Labs: Laboratory Results - last 24 hr 08/23/23 08/24/23 08/24/23 20:26 07:43 10:28 POC Glucose 164 H 90 190 H Microbiology Microbiology Results: Microbiology 08/18/23 13:03 Blood Culture - Final Blood - Venous No growth after 5 days. 08/18/23 13:03 Blood Culture - Final Blood - Venous No growth after 5 days. Assessment and Plan (1) Acute and chronic respiratory failure, unspecified whether with hypoxia or hypercapnia: Status: Acute (2) Pneumonia: Status: Acute Plan d7 72yo F with chronic AF on apixaban, chronic HFpEF, DM2, COPD on 4L home O2, lung CA, GERD admitted for acute hypoxia due to RSV infection acute/chronic hypercapneic/hypoxic RF due to RSV infection COPD exacerbation due to RSV infection - weaned back to home O2 requirement, qualifies for non-invasive ventilator at home, will set up delivery for tomorrow - got methylprednisolone 08/15-08/20 neb treatments question of pneumonia - got 1 dose of ceftriaxone and azithromycin on 08/18/23 but none since then, suspect her infection was all viral rather than bacterial given her clinical improvement; recheck PCT acute/chronic normocytic anemia - FOBT negative, Hb stable, per Pulmonary hold off on EGD given RSV infection, can revisit as outpt, repeat CBC refused today, will try again tomorrow hypoK - repleted chronic HFpEF - continue bumetanide persistent AF - continue diltiazem, digoxin - hold apixaban due to anemia DM2 - declines marcus-dose lispro VTE ppx - SCDs dispo - anticipate home with VNA once noninvasive ventiatlro set up In my clinical judgment, the patient requires continued inpatient hospitalization for the following reasons: dispo planning Total time managing care of this patient today: 45 minutes. Quality Stroke Does the patient have a stroke diagnosis?: No VTE Prior VTE?: No VTE Risk Level:: Medical - moderate - high VTE Device Contraindication: Treatment Not Indicated VTE Drug Contraindication: N/A - Med Ordered
[2023-08-24 15:50] LABS: MANUAL DIFF FLAG NO
[2023-08-24 15:53] LABS: Basophils Percent Auto 0.2 % (0-2); Eosinophils Absolute Auto 0.3 X10*3/uL (0.0-0.4); Eosinophils Percent Auto 1.5 % (0-4); Hematocrit 35.6 % (37.0-47.0); Hemoglobin 9.9 g/dl (12.0-16.0); Imm Gran Abs Auto 0.44 X10*3/uL (0.00-0.03); Imm Gran Pct Auto 2.1 % (0.0-0.4); Lymphocytes Absolute Auto 1.7 X10*3/uL (1.2-4.9); Lymphocytes Percent Auto 8.4 % (20-40); Mean Corpuscular HGB Conc 27.8 g/dl (31.0-35.0); Mean Corpuscular Volume 86.4 fL (80.0-98.0); Mean Platelet Volume 9.3 fL (9.4-12.3); Monocytes Absolute Auto 0.8 X10*3/uL (0.1-1.2); NRBC Pct Auto 0.3 /100WBC (0.0-0.2); Neutrophils Absolute Auto 17.3 x10*3/uL (2.0-8.3); Neutrophils Percent Auto 83.8 % (45-73); Platelet Count 404 X10*3/uL (160-400); Red Blood Count 4.12 X10*6/uL (4.20-5.50); White Blood Count 20.6 X10*3/uL (4.8-10.8)
[2023-08-24 16:17] LABS: Alanine Aminotransferase 41 U/L (0-31); Albumin Level 3.2 g/dL (3.5-5.0); Alkaline Phosphatase 143 U/L (39-117); Anion Gap 11 (12-20); Aspartate Amino Transferase 46 U/L (5-31); Bilirubin Total 0.3 mg/dL (0.0-1.0); Blood Urea Nitrogen 28 mg/dL (9-16); Calcium 9.7 mg/dL (8.4-10.2); Carbon Dioxide 35 mmol/L (22-29); Chloride 97 mmol/L (96-108); Creatinine Clr Calc Pharmacy 51.2; Estimated Glomerular Filt Rate 47; Glucose Fasting 145 mg/dL (60-99); Potassium 3.3 mmol/L (3.3-5.1); Sodium 140 mmol/L (135-145); Total Protein 6.7 g/dL (6.5-8.0)
[2023-08-24 16:57] LABS: Procalcitonin 0.46 ng/mL
[2023-08-24] MEDS: Acetaminophen 325 MG TABLET 650 MG PO (17:45)
[2023-08-24] MEDS: Lactulose 20 GM/30 ML SOLUTION PO (18:17)
[2023-08-24] MEDS: traMADoL HCL 50 MG TABLET PO (22:57)
[2023-08-25 00:24] LABS: Glucose, Whole Blood 113 mg/dL (60-115)
[2023-08-25 03:28] VITALS: BP 138/62; PULSE 64; RESP 20; TEMP 36.4; O2SAT 94
[2023-08-25 08:00] VITALS: BP 112/61; PULSE 81; RESP 20; TEMP 36.4; O2SAT 91
[2023-08-25 08:10] LABS: Hematocrit 32.5 % (37.0-47.0); Hemoglobin 8.8 g/dl (12.0-16.0); Mean Corpuscular HGB Conc 27.1 g/dl (31.0-35.0); Mean Corpuscular Hemoglobin 23.1 pg (27.0-33.0); Mean Corpuscular Volume 85.3 fL (80.0-98.0); Mean Platelet Volume 9.2 fL (9.4-12.3); NRBC Pct Auto 0.2 /100WBC (0.0-0.2); Platelet Count 402 X10*3/uL (160-400); Red Blood Count 3.81 X10*6/uL (4.20-5.50); Red Cell Distribution Width 20.7 % (11.0-16.0); White Blood Count 19.2 X10*3/uL (4.8-10.8)
[2023-08-25] MEDS: Ferrous Sulfate 300 MG/5 ML LIQUID PO ×2 (08:12→10:49)
[2023-08-25] MEDS: guaiFENesin LA 600 MG TAB.ER.12H PO (08:13)
[2023-08-25] MEDS: Ascorbic Acid 500 MG TABLET PO (08:13)
[2023-08-25] MEDS: dilTIAZem HCL CD 120 MG CAP.ER.DEG PO (08:13)
[2023-08-25] MEDS: Thiamine HCL 100 MG TABLET PO (08:13)
[2023-08-25] MEDS: Bumetanide 1 MG TABLET 4 MG PO (08:13)
[2023-08-25] MEDS: Digoxin 0.125 MG TABLET PO (08:13)
[2023-08-25] MEDS: Sennosides 8.6 MG TABLET 17.2 MG PO (08:13)
[2023-08-25] MEDS: Gabapentin 300 MG CAPSULE 600 MG PO (08:14)
[2023-08-25] MEDS: polyethylene glycoL 3350 17 GM POWD.PACK PO (08:14)
[2023-08-25] MEDS: Acetaminophen 325 MG TABLET 650 MG PO (08:14)
[2023-08-25] MEDS: 0.9 % Sodium Chloride Flush 3 ML SYRINGE IVFLUSH (08:16)
[2023-08-25 08:31] LABS: Anion Gap 12 (12-20); Blood Urea Nitrogen 27 mg/dL (9-16); Calcium 9.6 mg/dL (8.4-10.2); Carbon Dioxide 33 mmol/L (22-29); Chloride 98 mmol/L (96-108); Creatinine Clr Calc Pharmacy 60.1; Estimated Glomerular Filt Rate 56; Glucose Random 104 mg/dL (60-115); Potassium 3.4 mmol/L (3.3-5.1); Sodium 140 mmol/L (135-145)
[2023-08-25 08:57] LABS: Procalcitonin 0.42 ng/mL
--- NOTE | 2023-08-25 09:34 | MHC.CM.PN ---
PT TO BE MEDICALLY CLEARED FOR DC HOME W/[facility] FOR SN/PT AND RESUMP OF [facility] FOR HOME O2 AND NEW NOC VENT, PER SON DIANNA BEATTY'S RESPIRATORY THERAPIST WILL BE AT THE HOUSE BETWEEN 12-12:30PM TO DELIVER VENT AND FOR TEACHING. [facility] PREBOOKED FOR TRANSPORT AT 11AM.
--- NOTE | 2023-08-25 10:27 | PM.DS ---
DS: Providers Provider Date of Service: 08/25/23 Date of admission: 08/18/23 20:15 Date of discharge: 08/25/23 Primary care physician: Luigi Hong MD Consults: 08/20/23 10:39 Consult to Gastroenterology Routine Consulting Provider: Aundrea Mclaughlin Reason for consultation: anemia on eliquis Has provider been notified: No 08/20/23 10:54 Consult to Pulmonology Routine Consulting Provider: [facility] Reason for consultation: preop for endoscopy on 4 l of o2 Has provider been notified: No DS: Diagnosis Discharge Diagnosis (1) Pneumonia: Status: Acute (2) Acute on chronic respiratory failure with hypoxia and hypercapnia: Status: Acute (3) COPD exacerbation: Status: Acute (4) Respiratory syncytial virus (RSV): Status: Acute (5) Persistent atrial fibrillation: Status: Acute (6) Normocytic anemia: Status: Acute DS: Summary Hospital Course Hospital Course: From the history and physical by the admitting hospitalist, COREY Grigsby, 08/18/23: Pt is a 72-year-old female with a PMH significant for?chronic atrial fibrillation on Eliquis, HFpEF, insulin-dependent diabetes type 2, COPD on 4 L home O2, lung cancer, and GERD who presents to the ED for evaluation of abnormal labs. Pt is not the best historian and HPI supplemented by son who is at bedside. Pt apparently has been experiencing significant shortness breath and intermittent hypoxia since March when she was found to have a collapsed lower left lung. Was placed on 4 L home O2, and has been in and out of hospitals since then. 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 Patient was a resident of [facility] where labs were drawn and indicated she had an H&H of 6.7/25.0. Pt then came to the ED for possible transfusion. In the ED patient's H&H was noted to be 7.4/28.0 and transfusion was held. Stool was initially positive in the ED at bedside, but negative when a sample was sent to the lab. Pt complains of chronic SOB, non-productive cough, and fatigue that she says are all around baseline though perhaps slightly worse. Chronic lower leg edema also slightly worse. Denies melena, hematochezia. In the ED pt was afebrile, tachypneic up to 21, with soft BP as low as 110/47. Patient presented setting as low as 83% on RA, eventually placed on OxyMask. Labs were significant for chronically elevated WBC 13.7, normocytic anemia of 7.4/28.0, potassium 3.0, chloride 89, carbon dioxide 43, VBG pH 7.46 with bicarb 56. Lactic acid WNL at 1.7. Stool negative for occult blood. Patient tested positive for RSV. CXR showed left lower lobe retrocardiac opacity question infiltrate versus atelectasis. Also found prominent bilateral pulmonary vascular question of underlying congestion. CT of chest with contrast found complete collapse of left lower lobe with opacified left lower lobe likely representing combination of atelectasis and consolidation. Did not show any pleural effusion. Also found moderate pulmonary emphysema and diffusely thickened bronchial wall with question of active bronchitis. CT of abdomen and pelvis found no source of rectal bleeding: No evidence of enteritis, colitis, or acute diverticulitis. EKG demonstrated atrial fibrillation without significant ischemic changes. Pt was treated with potassium chloride, Solu-Medrol, morphine sulfate, ceftriaxone, and azithromycin. Pt will be admitted to the hospital for treatment further evaluation of acute hypoxic respiratory failure in the setting of RSV infection. Ms Goldstein is a 72yo F with chronic AF on apixaban, chronic HFpEF, DM2, COPD on 4L home O2, lung CA, and GERD who was admitted for acute hypoxia and hypercarbia with COPD exacerbation due to RSV pneumonia. Hospital course by problem: acute/chronic hypercapneic/hypoxic RF due to RSV infection COPD exacerbation due to RSV infection - Gradually weaned back to home O2 requirement of 4L O2. Qualified for noninvasive home ventilator [Shae] and was set up for this through [facility]. Treated with a 5-day course of steroids; got 1 dose of antibiotics on admission but in the end, her infection was thought to be viral from RSV and not bacterial. acute/chronic normocytic anemia on apixaban for persistent atrial fibrillation - FOBT negative, Hb stable after 1 unit of pRBCS transfused. GI consulted regarding EGD given chronic anticoagluation for AF. Per Pulmonary consultation, we held off on an EGD given the respiratory issues related to RSV infection. This may be revisited as an outpatient once she has fully recovered. In the meanwhile, Eliquis should continue to be held. She was discharged home with VNA services and family support. Time Attestation Total time managing care of this patient today: 40 mintues. Discharge coordination time: Greater than 30 minutes Quality: Safe Use of Opioids Does Pt have an Active Cancer Diagnosis on the Problem List?: No Quality: Stroke Does the patient have a stroke diagnosis?: No Physical Exam Vital Signs: Vital Signs: Last Vital Signs Temp 97.5 F 08/25/23 08:00 Pulse 81 08/25/23 08:00 Resp 20 08/25/23 08:00 BP 112/61 08/25/23 08:00 Pulse Ox 91 L 08/25/23 08:00 O2 Del Method Nasal Cannula 08/25/23 08:00 O2 Flow Rate 3 08/25/23 08:00 Oxygen Flow Rate 5 08/18/23 11:51 BMI result Body Mass Index 39.8 Gen: in no acute distress HEENT: sclera anicteric, moist mucus membranes Neck: supple Lungs: diminished Heart: irregular, no murmurs Abd: soft, non-tender, non-distended Ext: no edema Skin: warm/well-perfused Neuro: alert and oriented x3, no focal findings Psych: appropriate affect DS: Data Data Completed and Pending Completed studies during hospitalization [Text1]: Laboratory Results WBC 19.2 X10*3/uL (4.8-10.8) H 08/25/23 07:47 RBC 3.81 X10*6/uL (4.20-5.50) L 08/25/23 07:47 Hgb 8.8 g/dl (12.0-16.0) L 08/25/23 07:47 Hct 32.5 % (37.0-47.0) L 08/25/23 07:47 MCV 85.3 fL (80.0-98.0) 08/25/23 07:47 MCH 23.1 pg (27.0-33.0) L 08/25/23 07:47 MCHC 27.1 g/dl (31.0-35.0) L 08/25/23 07:47 RDW 20.7 % (11.0-16.0) H 08/25/23 07:47 Plt Count 402 X10*3/uL (160-400) H 08/25/23 07:47 MPV 9.2 fL (9.4-12.3) L 08/25/23 07:47 Immature Gran % (Auto) 2.1 % (0.0-0.4) H 08/24/23 15:30 Neut % (Auto) 83.8 % (45-73) H 08/24/23 15:30 Lymph % (Auto) 8.4 % (20-40) L 08/24/23 15:30 Bowman % (Auto) 4.0 % (2-11) 08/24/23 15:30 Eos % (Auto) 1.5 % (0-4) 08/24/23 15:30 Baso % (Auto) 0.2 % (0-2) 08/24/23 15:30 Lymph # (Auto) 1.7 X10*3/uL (1.2-4.9) 08/24/23 15:30 Bowman # (Auto) 0.8 X10*3/uL (0.1-1.2) 08/24/23 15:30 Eos # (Auto) 0.3 X10*3/uL (0.0-0.4) 08/24/23 15:30 Baso # (Auto) 0.0 X10*3/uL (0.0-0.2) 08/24/23 15:30 Abs Immat Gran (auto) 0.44 X10*3/uL (0.00-0.03) H 08/24/23 15:30 Absolute Neuts (auto) 17.3 x10*3/uL (2.0-8.3) H 08/24/23 15:30 Absolute Nucleated RBC 0.040 X10*3/uL (0.0-0.012) H 08/25/23 07:47 Nucleated RBC % (auto) 0.2 /100WBC (0.0-0.2) 08/25/23 07:47 PT 20.5 SEC (11.1-13.3) H D 08/18/23 12:16 INR 1.7 (0.9-1.1) H 08/18/23 12:16 APTT 31.2 SEC (26.0-36.4) 08/18/23 12:16 VBG pH 7.46 (7.32-7.43) H 08/18/23 12:29 VBG pCO2 78 mmHg 08/18/23 12:29 VBG pO2 35 mmHg 08/18/23 12:29 VBG HCO3 56 mmol/L (22-26) H 08/18/23 12:29 VBG O2 Saturation 50.0 % 08/18/23 12:29 VBG Base Excess 28.3 mmol/L 08/18/23 12:29 Sodium 140 mmol/L (135-145) 08/25/23 07:47 Potassium 3.4 mmol/L (3.3-5.1) 08/25/23 07:47 Chloride 98 mmol/L (96-108) 08/25/23 07:47 Carbon Dioxide 33 mmol/L (22-29) H 08/25/23 07:47 Anion Gap 12 (12-20) 08/25/23 07:47 BUN 27 mg/dL (9-16) H 08/25/23 07:47 Creatinine 0.97 mg/dL (0.5-1.4) 08/25/23 07:47 Estim Creat Clear Calc 60.1 08/25/23 07:47 Estimated GFR 56 08/25/23 07:47 POC Glucose 113 mg/dL (60-115) 08/24/23 22:56 Random Glucose 104 mg/dL (60-115) 08/25/23 07:47 Fasting Glucose 145 mg/dL (60-99) H 08/24/23 15:30 Lactic Acid 1.7 mmol/L (0.5-2.0) 08/18/23 13:03 Calcium 9.6 mg/dL (8.4-10.2) 08/25/23 07:47 Magnesium 2.1 mg/dL (1.6-2.6) 08/18/23 12:16 Ferritin 28 ng/mL (10-250) 08/20/23 06:19 Total Bilirubin 0.3 mg/dL (0.0-1.0) 08/24/23 15:30 AST 46 U/L (5-31) H 08/24/23 15:30 ALT 41 U/L (0-31) H 08/24/23 15:30 Alkaline Phosphatase 143 U/L (39-117) H 08/24/23 15:30 Troponin I High Sens 26.8 ng/L (<3.5-17.0) H 08/18/23 12:16 B-Natriuretic Peptide 202 pg/mL (<100) H 08/18/23 12:16 Total Protein 6.7 g/dL (6.5-8.0) 08/24/23 15:30 Albumin 3.2 g/dL (3.5-5.0) L 08/24/23 15:30 Procalcitonin 0.42 ng/mL 08/25/23 07:47 Urine Color Yellow 08/18/23 19:21 Urine Appearance Cloudy 08/18/23 19:21 Urine pH 8.0 (5.0-9.0) 08/18/23 19:21 Ur Specific [place] 1.010 (1.005-1.025) 08/18/23 19:21 Urine Protein Negative mg/dL (Neg-Trace) 08/18/23 19:21 Urine Glucose (UA) Negative mg/dL (Negative) 08/18/23 19:21 Urine Ketones Negative mg/dL (Negative) 08/18/23 19:21 Urine Blood Negative (Negative) 08/18/23 19:21 Urine Nitrite Negative (Negative) 08/18/23 19:21 Ur Leukocyte Esterase Negative (Negative) 08/18/23 19:21 Stool Occult Blood NEGATIVE (NEGATIVE) 08/18/23 13:03 Influenza Type A (PCR) NEGATIVE (Negative) 08/18/23 12:19 Influenza Type B (PCR) NEGATIVE (Negative) 08/18/23 12:19 RSV RNA Qual (PCR) POSITIVE (Negative) A 08/18/23 12:19 SARS-CoV-2 RNA (RT-PCR) NEGATIVE (Negative) 08/18/23 12:19 Blood Type B Negative 08/18/23 13:03 Antibody Screen NEGATIVE 08/18/23 13:03 Crossmatch See Detail 08/18/23 13:03 Impressions Chest X-Ray 08/18/23 12:15 IMPRESSION: Left lower lobe retrocardiac opacity question infiltrate versus atelectasis. Prominent bilateral interstitial markings are unchanged to 07/06/2023 Prominent bilateral pulmonary vasculature question underlying congestion. Abdomen/Pelvis CT 08/18/23 16:34 IMPRESSION: * Compared to 03/29/2023, interval development of complete collapse of the left lower lobe. The opacified left lower lobe likely represents combination of atelectasis and consolidation. No pleural effusion. * Moderate pulmonary emphysema and diffusely thickened bronchial chung. Correlate for any clinical symptoms/signs of active bronchitis. * Atherosclerotic disease of coronary arteries and thoracoabdominal aorta without aortic aneurysm. * No specific source of rectal bleeding is identified. There is no evidence of enteritis, colitis or acute diverticulitis. Chest CT 08/18/23 16:34 IMPRESSION: * Compared to 03/29/2023, interval development of complete collapse of the left lower lobe. The opacified left lower lobe likely represents combination of atelectasis and consolidation. No pleural effusion. * Moderate pulmonary emphysema and diffusely thickened bronchial chung. Correlate for any clinical symptoms/signs of active bronchitis. * Atherosclerotic disease of coronary arteries and thoracoabdominal aorta without aortic aneurysm. * No specific source of rectal bleeding is identified. There is no evidence of enteritis, colitis or acute diverticulitis. Discharge Plan Discharge Anticipated Discharge Date/Time: 08/25/23 10:18 Patient Disposition: Home Health Service Discharge Diagnosis: acute/chronic hypercapneic/hypoxic RF due to RSV infection COPD exacerbation due to RSV infection acute/chronic normocytic anemia persistent atrial fibrillation Referrals: [facility] [Other] - 1 Day (HOME OXYGEN AND VENT, PLEASE CONTACT [facility] [phone] WITH ANY ISSUES/QUESTIONS REGARDING VENT. ) [facility] [Outside] - 1 Day () Luigi Hong MD [Primary Care Provider] - 1 Week Aundrea Mclaughlin MD [Physician] - 2 Weeks Discharge Medications: New ferrous sulfate 300 mg (60 mg iron)/5 mL Liquid 300 mg PO DAILY Qty: 150 0RF omeprazole 20 mg Capsule,Delayed Release(Dr/Ec) 20 mg PO DAILY@0630 Qty: 30 0RF albuterol sulfate 90 mcg/actuation HFA aerosol inhaler 2 puff inhalation Q4-6H PRN (Reason: shortness of breath or wheezing) Qty: 8.5 0RF Rx Instructions: use with spacer device Continued gabapentin 300 mg capsule 600 mg PO QID Rx Instructions: AT 0800,1200,1800,2100 bumetanide 2 mg tablet 4 mg PO DAILY@0800 sennosides [senna] 8.6 mg Tablet 17.2 mg PO BID@0800,2100 ascorbic acid (vitamin C) 500 mg Tablet 500 mg PO DAILY@0800 polyethylene glycol 3350 17 gram/dose Powder 17 g PO DAILY@0800 thiamine HCl (vitamin B1) 100 mg Tablet 100 mg PO DAILY@0800 ondansetron HCl 4 mg tablet 8 mg PO DAILY PRN (Reason: Nausea) insulin lispro 100 unit/mL Solution 1 sliding scale dose SUBCUT TIDAC@0800,1200,1800 Rx Instructions: 150-199=2units,200-249=4units,250-299=6units,300-349=8units,350-399=10units diltiazem HCl [Cardizem CD] 120 mg capsule,extended release 24hr 120 mg PO DAILY@0800 Protocol: Hold for SBP/HR < HOLD for SBP < : 90 HOLD for HR < : 60 digoxin 125 mcg (0.125 mg) tablet 0.125 mg PO DAILY@0800 tramadol 50 mg tablet 50 mg PO Q4H PRN (Reason: Pain, Moderate) Held Eliquis 5 mg tablet 5 mg PO BID@0800,2100 Hold Instructions: Resume on 10/05/23. Hold until cleared by employment attorney and/or primary care doctor Discharge Orders: Discharge Order (Routine); Ordered 08/25/23 Ordered By: Selina Rowan Stand Alone Forms: Patient Portal Discharge page Other Ambulatory Orders: Complete Blood Count Auto Diff (Routine) Timeframe: [id number] Facility: [facility] - Location: Laboratory Ordered By: Selina Rowan Care Plan Goals: pulmonary health safe anticoagulation to prevent strokes from atrial fibrillation Health Concerns: acute/chronic hypercapneic/hypoxic RF due to RSV infection COPD exacerbation due to RSV infection acute/chronic normocytic anemia persistent atrial fibrillation Plan of Treatment: Use Shae ventilator at night; continue oxygen 4L via nasal cannula Completed steroids and RSV isolation Take iron as prescribed. Recheck CBC on 08/29/23. Hold Eliquis for now. See employment attorney at [facility] [Dr Mclaughlin] in 2 weeks to discuss endoscopy. Take omeprazole 20 mg daily in the meanwhile. Resume Eliquis once cleared by employment attorney and/or primary care doctor. Please follow up with your primary care doctor within 1 week. Return to the hospital if you experience recurrent or worsening symptoms. Assessment: See Discharge Summary.
[2023-08-25 10:34] LABS: Glucose, Whole Blood 144 mg/dL (60-115)
--- NOTE | 2023-08-25 10:34 | P.F2F_ITS ---
Service Date Service Date: 08/25/23 Encounter Date of encounter: 08/25/23 Reasons for Services Signs and symptoms assessed: Gross Deconditioning, Impaired Standing Balance, Impaired Transfer Ability,Muscle Weakness Reason for custodial: medication management, medication treatment, teach disease management and other (new use of Shae home ventilator) Reason for physical therapy: home safety and mobility, therapeutic exercises, gait/transfer training, assess need for DME, ADL training and energy conservation MD Overseeing Care: Luigi Hong Homebound: Leaving the home is medically contraindicated at this time without the asist of a device and/or another person due th the listed conditions above and below. Reason homebound: shortness of breath with minimal effort and weakness related to hospital stay Homebound supporting statement: Transfer Training, Therapeutic Activities, Therapeutic Exercise, Patient Education, Safety Certification: Based on the above findings, I certify that this patient is confined to the home and needs intermittent custodial care, physical therapy and/or speech therapy, or continues to need occupational therapy. The patient is under my care, and I have initiated the establishment of the plan of care. The patient will be followed by a physician who will periodically review the plan of care. Time Spent With Patient Time: Total time managing care of this patient today ____ minutes.
[2023-08-25] MEDS: traMADoL HCL 50 MG TABLET PO (10:48)
[2023-08-25] MEDS: Lactulose 20 GM/30 ML SOLUTION PO (10:48)
[2023-08-25] MEDS: Sennosides/Docusate Sodium TABLET 2 TAB PO (10:49)
== END 2023-08-25 11:15 | disposition home health service (06) | DRG 871 ==
LOC: HO.ED 14:15 → HO.EDOVER 20:32 → HO.IMC 20:44
PROVIDERS: Hospitalist; Internal Medicine; Internal Medicine Gastroenterology; Physician Assistant; Physician Assistant Medical; Admitting Provider Student in an Organized Health Care Education/Training Program; Emergency Provider Emergency Medicine Emergency Medical Services; PCP Internal Medicine; Visit Provider Family Medicine
DX: A41.89 Other specified sepsis (principal); J12.9 Viral pneumonia, unspecified; J96.21 Acute and chronic respiratory failure with hypoxia; J98.11 Atelectasis; I50.32 Chronic diastolic (congestive) heart failure; I48.19 Other persistent atrial fibrillation; B97.4 Respiratory syncytial virus as the cause of diseases classified elsewhere; G47.33 Obstructive sleep apnea (adult) (pediatric); J20.5 Acute bronchitis due to respiratory syncytial virus; E11.40 Type 2 diabetes mellitus with diabetic neuropathy, unspecified; E66.01 Morbid (severe) obesity due to excess calories; Z68.39 Body mass index [BMI] 39.0-39.9, adult; J43.9 Emphysema, unspecified; E87.6 Hypokalemia; Z20.822 Contact with and (suspected) exposure to COVID-19; Z87.891 Personal history of nicotine dependence; Z99.81 Dependence on supplemental oxygen; Z79.4 Long term (current) use of insulin; Z79.01 Long term (current) use of anticoagulants; Z79.899 Other long term (current) drug therapy
CPT/HCPCS: 0241U; 36415; 71045; 71260; 74177; 80048; 80053; 81003; 82272; 82728; 82803; 82947; 83605; 83735; 83880; 84145; 84484; 85025; 85027; 85610; 85730; 86850; 86900; 86901; 86923; 87040; 93005; 94640; 97162; 99285; J0456; J0696; J1200; J2270; J2920; J2930; J3480; P9016

== ENCOUNTER → 2023-08-18 12:02 | Outpatient (BNV) | payer MEDICARE, OTHER, SELFPAY | PROVIDERS: Admitting Provider Student in an Organized Health Care Education/Training Program; Emergency Provider Emergency Medicine Emergency Medical Services; PCP Internal Medicine; Visit Provider Internal Medicine Cardiovascular Disease | DX: R94.31 Abnormal electrocardiogram [ECG] [EKG] (principal) | CPT/HCPCS: 93010 ==

== ENCOUNTER → 2023-08-18 20:15 | Outpatient (BNV) | payer MEDICARE, OTHER, SELFPAY | PROVIDERS: Admitting Provider Student in an Organized Health Care Education/Training Program; Emergency Provider Emergency Medicine Emergency Medical Services; PCP Internal Medicine; Visit Provider Student in an Organized Health Care Education/Training Program | DX: J18.9 Pneumonia, unspecified organism (principal); J96.21 Acute and chronic respiratory failure with hypoxia; J96.22 Acute and chronic respiratory failure with hypercapnia; J44.1 Chronic obstructive pulmonary disease with (acute) exacerbation; B33.8 Other specified viral diseases; I48.19 Other persistent atrial fibrillation; D64.9 Anemia, unspecified | CPT/HCPCS: 99223; 99232; 99233; 99239; G0180 ==

== ENCOUNTER → 2023-08-18 20:15 | Outpatient (BNV) | payer MEDICARE, OTHER, SELFPAY | PROVIDERS: Admitting Provider Student in an Organized Health Care Education/Training Program; Emergency Provider Emergency Medicine Emergency Medical Services; PCP Internal Medicine; Visit Provider Internal Medicine Gastroenterology | DX: D64.9 Anemia, unspecified (principal) | CPT/HCPCS: 99222 ==

== ENCOUNTER → 2023-08-18 20:15 | Outpatient (BNV) | payer MEDICARE, OTHER, SELFPAY | PROVIDERS: Admitting Provider Student in an Organized Health Care Education/Training Program; Emergency Provider Emergency Medicine Emergency Medical Services; PCP Internal Medicine; Visit Provider Internal Medicine Pulmonary Disease | DX: J44.9 Chronic obstructive pulmonary disease, unspecified (principal); E66.01 Morbid (severe) obesity due to excess calories; Z68.39 Body mass index [BMI] 39.0-39.9, adult; B33.8 Other specified viral diseases | CPT/HCPCS: 99222 ==

== ENCOUNTER 2023-09-07 12:39 | Outpatient (REF) | payer MEDICARE, OTHER, SELFPAY | END 2023-09-07 12:40 | disposition home or self-care (01) | LOC: HO.10HDLNP 12:39 | PROVIDERS: Visit Provider Internal Medicine | DX: J44.9 Chronic obstructive pulmonary disease, unspecified (principal); N18.9 Chronic kidney disease, unspecified; D63.1 Anemia in chronic kidney disease | CPT/HCPCS: 80053; 85025 ==

== ENCOUNTER 2023-09-15 20:10 | Inpatient (IN) | payer MEDICARE, OTHER, SELFPAY ==
--- NOTE | 2023-09-15 | ECG_ITS ---
Test Reason : RESPIRATORY DISTRESS Blood Pressure : / mmHG Vent. Rate : 100 BPM Atrial Rate : 000 BPM P-R Int : 000 ms QRS Dur : 080 ms QT Int : 292 ms P-R-T Axes : 000 -44 121 degrees QTc Int : 376 ms Poor data quality Possible Atrial fibrillation Left axis deviation Possible Anterior infarct , age undetermined Abnormal ECG When compared with ECG of 18-AUG-2023 12:42, Atrial fibrillation has replaced Sinus rhythm Nonspecific T wave abnormality, worse in Lateral leads Referred By: Generic ED Physician Electronically Signed By:BRO HADDAD MD
--- NOTE | ~2023-09-15 | CT_ITS ---
EXAMINATION: CT CHEST WITH CONTRAST CT ABDOMEN AND PELVIS WITH CONTRAST CLINICAL INFORMATION: Reason for Exam SOB, cough. COMPARISON: 08/18/2023. TECHNIQUE: Multidetector volumetric imaging was performed from the thoracic inlet through the pubic symphysis following administration of intravenous contrast material. A total of 85 mL Omnipaque 300 was administered intravenously. Sagittal and coronal images were reformatted. This CT examination was performed using dose optimization techniques as appropriate, variously including the following: *Automated exposure control *Adjustment of mA and/or kV according to patient size (this includes techniques or standardized protocols for targeted exams where dose is matched to indication/reason for exam; i.e. extremities or head) *Use of iterative reconstruction technique DOSE: 1772 mGy-cm FINDINGS: -CHEST- LUNG: Moderate to severe centrilobular pulmonary emphysema. Pulmonary assessment is somewhat limited by respiratory motion. Chronic bronchial wall thickening is again noted. There is atelectasis and dependent consolidation in the left lower lobe, improved as compared to prior. More mild atelectasis is present in the right lung base posteriorly. Secretions are suspected in the trachea and right mainstem bronchus. Pleural parenchymal scarring is present at the lung apex on the left. MEDIASTINUM: The mediastinum in normal. Calcific atherosclerosis is present in the thoracic aorta and suprarenal cartilage. No aneurysmal dilatation. No hilar or mediastinal lymphadenopathy. Calcific atherosclerosis is present in the coronary arteries. PERICARDIUM/PLEURA: No significant effusion. No pleural mass or thickening. CHEST WALL/AXILLA: Unremarkable. -ABDOMEN/PELVIS- LIVER, GALLBLADDER, BILIARY TREE: Relative hypoattenuation of the hepatic parenchyma is consistent with consistent with steatosis. The liver is normal in size and shape. No focal hepatic lesion or biliary ductal dilatation is present. Gallbladder surgically absent. PANCREAS: Mild atrophy; no mass or surrounding fluid. SPLEEN: Normal size. No focal lesion. ADRENAL GLANDS: Normal; no mass. KIDNEYS AND URETERS: The kidneys are normal in size, shape, and attenuation. No hydronephrosis, hydroureter, or calculi seen. No perinephric stranding. Simple cyst in each kidney. No recommended imaging follow-up. BLADDER: Focal thickening at the posterolateral aspect of the wall measures 4.3 x 3 x 1 cm, new as compared to prior. GASTROINTESTINAL TRACT: Stomach, small bowel, and colon are normal in caliber. No bowel wall thickening or surrounding inflammatory changes. Mild colonic diverticulosis at the sigmoid. Stool ball at the rectum. Wall thickening around the stool ball at the rectum and adjacent presacral fat stranding raise the possibility of stercoral colitis. Appendix is normal. No intraperitoneal free fluid or free air. ABDOMINAL WALL: No significant hernia is appreciated. VASCULATURE: Calcific atherosclerosis is present in the abdominal aorta and iliac arteries. LYMPH NODES: No lymphadenopathy. . PELVIC VISCERA: Uterus appears surgically absent. No adnexal lesion. OSSEUS STRUCTURES: Moderate severe multilevel degenerative disc disease in the lumbar spine with left convex scoliosis and marked facet arthropathy. No acute fracture or malalignment. Mild osteoarthritis in the hips. CT/CT abdomen pelvis w IV con IMPRESSION: 1. Moderate to severe pulmonary emphysema. Dependent atelectasis and consolidation in the left lower lobe are improved as compared to prior. 2. Stool ball at the rectum with associated wall thickening and presacral fat stranding, concerning for stercoral colitis. 3. Focal thickening at the left posterolateral aspect of the bladder wall, new as compared to prior. This could correspond to dependent blood (or a mural lesion. Consider correlation with cystoscopy. 4. Mild colonic diverticulosis without evidence of acute diverticulitis. 5. Hepatic steatosis.
--- NOTE | ~2023-09-15 | XR_ITS ---
EXAMINATION: XR CHEST CLINICAL INFORMATION: Shortness of breath. COMPARISON: CT chest 08/18/2023. Chest radiograph 08/18/2023. TECHNIQUE: Frontal view of the chest was obtained. FINDINGS: Slightly decreased left lower lobe consolidation. Mildly increased diffuse interstitial coarsening. Equivocal new focal airspace opacities in the right lower lobe. Stable trace left pleural fluid. No pneumothorax. Stable prominence of the cardiomediastinal silhouette. No acute osseous findings. XR/XR chest 1V IMPRESSION: 1. Slightly decreased left lower lobe consolidation. 2. Equivocal new focal airspace opacities in the right lower lobe. 3. Mildly increased diffuse interstitial coarsening. 4. Stable trace left pleural fluid.
[2023-09-15 20:21] VITALS: BP 126/65; PULSE 90; O2SAT 95
[2023-09-15 20:24] VITALS: BP 108/70; PULSE 86; RESP 22; TEMP 37; O2SAT 96; BMI 39.0
[2023-09-15 20:43] LABS: Basophils Absolute Auto 0.2 X10*3/uL (0.0-0.2); Basophils Percent Auto 0.5 % (0-2); Hematocrit 40.9 % (37.0-47.0); Hemoglobin 11.9 g/dl (12.0-16.0); Imm Gran Abs Auto 0.29 X10*3/uL (0.00-0.03); Lymphocytes Percent Auto 7.2 % (20-40); MANUAL DIFF FLAG SCAN; Mean Corpuscular HGB Conc 29.1 g/dl (31.0-35.0); Mean Corpuscular Hemoglobin 25.6 pg (27.0-33.0); Mean Platelet Volume 9.1 fL (9.4-12.3); Monocytes Absolute Auto 2.3 X10*3/uL (0.1-1.2); Monocytes Percent Auto 8.2 % (2-11); NRBC Pct Auto 0.2 /100WBC (0.0-0.2); Neutrophils Absolute Auto 23.2 x10*3/uL (2.0-8.3); Neutrophils Percent Auto 83.1 % (45-73); Platelet Count 437 X10*3/uL (160-400); Red Blood Count 4.65 X10*6/uL (4.20-5.50); Red Cell Distribution Width 21.9 % (11.0-16.0); SCAN SMEAR FLAG 1; White Blood Count 27.9 X10*3/uL (4.8-10.8)
[2023-09-15 20:53] LABS: COVID-19 Test Negative (Negative); IDNOW Serial# 08D9AD1C; IDNOW Serial# 58CA691E; Influenza A Negative (Negative); Influenza B2 Negative (Negative)
[2023-09-15 20:55] LABS: Alanine Aminotransferase 16 U/L (0-31); Alkaline Phosphatase 147 U/L (39-117); Anion Gap 16 (12-20); Aspartate Amino Transferase 27 U/L (5-31); Bilirubin Total 0.6 mg/dL (0.0-1.0); Blood Urea Nitrogen 19 mg/dL (9-16); Carbon Dioxide 39 mmol/L (22-29); Chloride 86 mmol/L (96-108); Creatinine Clr Calc Pharmacy 50.5; Estimated Glomerular Filt Rate 51; Glucose Random 129 mg/dL (60-115); Potassium 3.5 mmol/L (3.3-5.1); Sodium 137 mmol/L (135-145); Total Protein 7.2 g/dL (6.5-8.0)
[2023-09-15 21:01] LABS: Troponin-I High Sensitivity 41.5 ng/L (<3.5-17.0)
[2023-09-15 21:03] LABS: SLIDE REVIEW VERIFIED
[2023-09-15] MEDS: iohexoL 350 MG/ML 100 ML INFUS..BTL 85 ML IV (21:35)
[2023-09-15 22:10] LABS: VBG Base Excess 27.8 mmol/L; VBG HCO3 56 mmol/L (22-26); VBG pCO2 68 mmHg; VBG pH 7.52 (7.32-7.43); VBG pO2 43 mmHg
[2023-09-15 22:11] LABS: Venous Blood Gas Refer to POC result
[2023-09-15] MEDS: cefEPime HCl 2 GM in 0.9 % Sodium Chloride 50 ML IV (22:13)
[2023-09-15 22:15] LABS: Lactic Acid 1.1 mmol/L (0.5-2.0)
[2023-09-15 22:25] LABS: B Type Natriuretic Peptide 134 pg/mL (<100)
--- NOTE | 2023-09-15 22:35 | ED.GENADULT ---
HPI - General Adult General Chief complaint: General Medical Stated complaint: NOT EATING X6 DAYS, LOW O2 Time Seen by Provider: 09/15/23 20:54 Source: patient and family Mode of arrival: EMS History of Present Illness HPI narrative: 72-year-old female is brought in by EMS, family is at bedside and provides majority of the information but patient states that she does not feel well and states that she is having pain specifically at her anus. Her family reports that she has not had significant oral intake for approximately 6 days and that she has been intentionally spinning food out, when I ask the patient she denies any symptoms of dysphagia. The family also states that she has been refusing to use her CPAP at night but has been taking all other medications. Patient has had a bowel movement today but previously had been experiencing constipation. Related Data Home Medications Medication Instructions Recorded Confirmed tramadol 50 mg tablet 50 mg PO Q4H PRN Pain, Moderate 03/15/23 08/18/23 apixaban 5 mg tablet (Eliquis) 5 mg PO BID@0800,2100 08/18/23 08/18/23 ascorbic acid (vitamin C) 500 mg 500 mg PO DAILY@0800 08/18/23 08/18/23 tablet bumetanide 2 mg tablet 4 mg PO DAILY@0800 08/18/23 08/18/23 digoxin 125 mcg (0.125 mg) tablet 0.125 mg PO DAILY@0800 08/18/23 08/18/23 diltiazem HCl 120 mg 120 mg PO DAILY@0800 08/18/23 08/18/23 capsule,extended release 24 hr (Cardizem CD) gabapentin 300 mg capsule 600 mg PO QID 08/18/23 08/18/23 insulin lispro 100 unit/mL 1 sliding scale dose subcut 08/18/23 08/18/23 subcutaneous solution TIDAC@0800,1200,1800 ondansetron HCl 4 mg tablet 8 mg PO DAILY PRN Nausea 08/18/23 08/18/23 polyethylene glycol 3350 17 17 g PO DAILY@0800 08/18/23 08/18/23 gram/dose oral powder sennosides 8.6 mg tablet (senna) 17.2 mg PO BID@0800,2100 08/18/23 08/18/23 thiamine HCl (vitamin B1) 100 mg 100 mg PO DAILY@0800 08/18/23 08/18/23 tablet Previous Rx's Medication Instructions Recorded albuterol sulfate 90 mcg/actuation 2 puff inhalation Q4-6H PRN 08/25/23 aerosol inhaler shortness of breath or wheezing #8.5 grams ferrous sulfate 300 mg (60 mg 300 mg (5 mL) PO DAILY #150 mL 08/25/23 iron)/5 mL oral liquid omeprazole 20 mg capsule,delayed 20 mg PO DAILY@0630 #30 caps 08/25/23 release ferrous sulfate 325 mg (65 mg 325 mg PO DAILY #30 tabs 08/26/23 iron) tablet Allergies Allergy/AdvReac Type Severity Reaction Status Date / Time Penicillin Allergy Unknown rash Uncoded 09/15/23 20:26 Review of Systems Review of Systems: Pertinent positives and negatives as stated in [facility] Past Medical History Source: nursing notes reviewed Onset Date is defined in the Problem List Problems that require an onset date and time if occurred within 24 hrs of arrival to the ED Aortic Dissection and Rupture; Neurologic impairment; Cardiopulmonary Arrest; Endotracheal Intubation; Insertion or Replacement of Mechanical Circulatory Assist Device Medical History Pneumonia Morbid obesity Atrial fibrillation with rapid ventricular response Constipation Lung cancer Pneumonia COPD with acute exacerbation COPD (chronic obstructive pulmonary disease) Carpal tunnel syndrome, left Nerve pain High blood pressure Surgical History H/O: hysterectomy Social History Social History Household Members: None Housing: Detention Housing Other:: [facility] Do you presently have visiting nurse or other home services: No Alcohol intake: never Patient Tobacco Use Status: Former Tobacco user Tobacco use type: Cigarette Cigarette Packs Per Day: 1 Cigarettes Per Day: 20.0 e-Cigarette/Vaping Use: Never Used Second Hand Smoke Exposure: No Advance Directives: Yes Advance Directives on File: Yes Advance Directives Date on File: 03/23/23 service: No Current occupational status: retired Current occupation: left handed Physical Exam ED Vital Signs: Vital Signs - 24 hr 09/15/23 20:24 09/16/23 00:03 Temperature 98.6 F 99.6 F Pulse Rate 86 98 Respiratory Rate 22 H 16 Blood Pressure 108/70 110/66 Pulse Oximetry 96 90 L Oxygen Delivery Method Nasal Cannula Room Air BMI result Body Mass Index 39.0 VITAL SIGNS: Reviewed. GENERAL: Elevated BMI, Well developed, well nourished, in no acute distress. HEAD: Normocephalic/atraumatic EYES: PERRLA, EOMI EARS: Ext canals without abnormality NOSE: Nares patent bilateral OROPHARYNX: no oral lesions noted, posterior pharynx clear NECK: Supple, no adenopathy LUNGS: Decreased breath sounds bilaterally, no obvious wheeze or rhonchi. SpO2<96> on home 3 L nasal cannula CARDIOVASCULAR: Regular rate and rhythm without noted murmurs, no JVD or lower extremity edema. ABDOMEN: Soft, non-tender, non-distended with bowel sounds. ANORECTAL: There are no specific lesions noted, no inflamed hemorrhoids, there is some mild skin breakdown in the perianal area, stool is dark but not melena MUSCULOSKELETAL: No tenderness, deformities, or effusions noted on gross inspection. EXTREMITIES: No cyanosis, clubbing or edema. SKIN: Inspection of the skin reveals no rashes NEUROLOGIC: Alert and oriented x 4. Strength and sensation to light touch were grossly intact x 4. Medications Administered Discontinued Medications Generic Name Dose Route Start Last Admin Trade Name Freq PRN Reason Stop Dose Admin Hydromorphone HCl 0.5 mg 09/15/23 22:35 09/15/23 23:13 Hydromorphone Hcl 0.5 Mg/0.5 Ml Syringe IVPUSH 09/15/23 22:36 0.5 mg ONCE ONE Administration Protocol Cefepime HCl 2 gm/ Sodium 50 mls @ 100 mls/hr 09/15/23 21:40 09/15/23 22:43 Chloride IV 09/15/23 22:09 Infused ONCE ONE Infusion Sodium Chloride 1,000 mls @ 999 mls/hr 09/15/23 22:45 09/16/23 00:19 Ns IV 09/15/23 23:45 Infused .Q1H1M LE Infusion Iohexol 85 ml 09/15/23 21:34 09/15/23 21:35 Iohexol 350 Mg/Ml 100 Ml Infus..Btl IV 09/15/23 21:35 85 ml ONCE ONE Administration Medical Decision Making Medical Decision Making MDM Narrative: 72-year-old female with history and clinical presentation, DDX: UTI, behavioral as it relates to poor oral intake and spitting out of food and not being compliant the use of CPAP as patient has known underlying chronic lung disease. I do not appreciate any anorectal abnormality to better explain patient's discomfort, stool is soft and no symptoms to suggest rectal impaction. I reviewed all investigations and hematologic indices are significant for somewhat chronic leukocytosis, patient is afebrile but family's concerned about patient having not eaten and suspect the 27.9 could be a component dehydration. There is a normocytic anemia that is stable, mild elevation of platelet count although this appears to be chronic as well. VBG does not demonstrate any respiratory acidosis but there is hypercapnia which is consistent with patient not being compliant with either her CPAP or baseline home oxygen. She has not altered at this time. Chemistry indices do not demonstrate an DANA and there is no electrolyte or significant liver enzyme derangement, patient has a chronically stable elevated alkaline phosphatase and the high sensitivity troponin is mildly elevated when compared to prior in mid August but patient has no complaints about chest pain and there were no acute findings on EKG. Suspect that this is likely demand due to patient's underlying medical comorbidities. Viral testing is negative for influenza and COVID-19. On review of CT scan there is evidence to suggest stercoral colitis for which patient has already received antibiotics as well as some nonspecific focal thickening at the left bladder wall which is new. Patient will be admitted to the hospitalist Differential Diagnosis Differential Diagnoses: The differential diagnosis associated with the presentation includes Please see the discussion Admission/Observation Consideration of admission/observation: Escalation of care including admission/observation considered Please see the discussion above Consult Healthcare Provider Management of the patient was discussed with: Hospitalist Please see the discussion above Lab Data MDM Lab Attestation statement: I reviewed the patient's lab results. Please see the discussion above 09/15/23 20:32 09/15/23 20:32 Labs: Lab Results 09/15/23 09/15/23 09/15/23 Range/Units 20:32 21:58 22:02 WBC 27.9 H (4.8-10.8) X10*3/uL RBC 4.65 (4.20-5.50) X10*6/uL Hgb 11.9 L (12.0-16.0) g/dl Hct 40.9 (37.0-47.0) % MCV 88.0 (80.0-98.0) fL MCH 25.6 L (27.0-33.0) pg MCHC 29.1 L (31.0-35.0) g/dl RDW 21.9 H (11.0-16.0) % Plt Count 437 H (160-400) X10*3/uL MPV 9.1 L (9.4-12.3) fL Immature Gran % (Auto) 1.0 H (0.0-0.4) % Neut % (Auto) 83.1 H (45-73) % Lymph % (Auto) 7.2 L (20-40) % [place] % (Auto) 8.2 (2-11) % Eos % (Auto) 0.0 (0-4) % Baso % (Auto) 0.5 (0-2) % Lymph # (Auto) 2.0 (1.2-4.9) X10*3/uL [place] # (Auto) 2.3 H (0.1-1.2) X10*3/uL Eos # (Auto) 0.0 (0.0-0.4) X10*3/uL Baso # (Auto) 0.2 (0.0-0.2) X10*3/uL Abs Immat Gran (auto) 0.29 H (0.00-0.03) X10*3/uL Absolute Neuts (auto) 23.2 H (2.0-8.3) x10*3/uL Absolute Nucleated RBC 0.050 H (0.0-0.012) X10*3/uL Nucleated RBC % (auto) 0.2 (0.0-0.2) /100WBC Smear Tech's Comments VERIFIED VBG pH 7.52 H (7.32-7.43) VBG pCO2 68 mmHg VBG pO2 43 mmHg VBG HCO3 56 H (22-26) mmol/L VBG O2 Saturation 63.0 % VBG Base Excess 27.8 mmol/L Sodium 137 (135-145) mmol/L Potassium 3.5 (3.3-5.1) mmol/L Chloride 86 L (96-108) mmol/L Carbon Dioxide 39 H (22-29) mmol/L Anion Gap 16 (12-20) BUN 19 H (9-16) mg/dL Creatinine 1.06 (0.5-1.4) mg/dL Estim Creat Clear Calc 50.5 Estimated GFR 51 Random Glucose 129 H (60-115) mg/dL Lactic Acid 1.1 (0.5-2.0) mmol/L Calcium 10.0 (8.4-10.2) mg/dL Total Bilirubin 0.6 (0.0-1.0) mg/dL AST 27 (5-31) U/L ALT 16 (0-31) U/L Alkaline Phosphatase 147 H (39-117) U/L Troponin I High Sens 41.5 H D (<3.5-17.0) ng/L B-Natriuretic Peptide 134 H (<100) pg/mL Total Protein 7.2 (6.5-8.0) g/dL Albumin 3.0 L (3.5-5.0) g/dL Urine Color Urine Appearance Urine pH (5.0-9.0) Ur Specific [place] (1.005-1.025) Urine Protein (Neg-Trace) mg/dL Urine Glucose (UA) (Negative) mg/dL Urine Ketones (Negative) mg/dL Urine Blood (Negative) Urine Nitrite (Negative) Ur Leukocyte Esterase (Negative) Urine RBC (0-2) /HPF Urine WBC (0-5) /HPF Ur Squamous Epith Cells (0-2) /HPF Urine Bacteria (None Seen) Hyaline Casts (0-2) /LPF COVID-19 ([facility]) Negative (Negative) COVID-19 Clin Com See Note Influenza Type A ([facility]ORY) Negative (Negative) Influenza Type B ([facility]ORY) Negative (Negative) Influenza A & B Note See Note 09/15/23 Range/Units 23:56 WBC (4.8-10.8) X10*3/uL RBC (4.20-5.50) X10*6/uL Hgb (12.0-16.0) g/dl Hct (37.0-47.0) % MCV (80.0-98.0) fL MCH (27.0-33.0) pg MCHC (31.0-35.0) g/dl RDW (11.0-16.0) % Plt Count (160-400) X10*3/uL MPV (9.4-12.3) fL Immature Gran % (Auto) (0.0-0.4) % Neut % (Auto) (45-73) % Lymph % (Auto) (20-40) % [place] % (Auto) (2-11) % Eos % (Auto) (0-4) % Baso % (Auto) (0-2) % Lymph # (Auto) (1.2-4.9) X10*3/uL [place] # (Auto) (0.1-1.2) X10*3/uL Eos # (Auto) (0.0-0.4) X10*3/uL Baso # (Auto) (0.0-0.2) X10*3/uL Abs Immat Gran (auto) (0.00-0.03) X10*3/uL Absolute Neuts (auto) (2.0-8.3) x10*3/uL Absolute Nucleated RBC (0.0-0.012) X10*3/uL Nucleated RBC % (auto) (0.0-0.2) /100WBC Smear Tech's Comments VBG pH (7.32-7.43) VBG pCO2 mmHg VBG pO2 mmHg VBG HCO3 (22-26) mmol/L VBG O2 Saturation % VBG Base Excess mmol/L Sodium (135-145) mmol/L Potassium (3.3-5.1) mmol/L Chloride (96-108) mmol/L Carbon Dioxide (22-29) mmol/L Anion Gap (12-20) BUN (9-16) mg/dL Creatinine (0.5-1.4) mg/dL Estim Creat Clear Calc Estimated GFR Random Glucose (60-115) mg/dL Lactic Acid (0.5-2.0) mmol/L Calcium (8.4-10.2) mg/dL Total Bilirubin (0.0-1.0) mg/dL AST (5-31) U/L ALT (0-31) U/L Alkaline Phosphatase (39-117) U/L Troponin I High Sens (<3.5-17.0) ng/L B-Natriuretic Peptide (<100) pg/mL Total Protein (6.5-8.0) g/dL Albumin (3.5-5.0) g/dL Urine Color Yellow Urine Appearance Cloudy Urine pH 8.5 (5.0-9.0) Ur Specific [place]onson 1.015 (1.005-1.025) Urine Protein Negative (Neg-Trace) mg/dL Urine Glucose (UA) Negative (Negative) mg/dL Urine Ketones Negative (Negative) mg/dL Urine Blood Negative (Negative) Urine Nitrite Negative (Negative) Ur Leukocyte Esterase Trace H (Negative) Urine RBC 0-2 (0-2) /HPF Urine WBC 0-5 (0-5) /HPF Ur Squamous Epith Cells 0-2 (0-2) /HPF Urine Bacteria 4+ (None Seen) Hyaline Casts 3-5 (0-2) /LPF COVID-19 ([facility]) (Negative) COVID-19 Clin Com Influenza Type A ([facility]ORY) (Negative) Influenza Type B ([facility]ORY) (Negative) Influenza A & B Note Independent Interpretation I performed an independent interpretation of an: EKG Interpretation: Atrial fibrillation with RVR, HR-100, QRS/QTC is within normal limits. No STEMI. Radiology Impression Discussion of test interpretation with radiology: I have reviewed the radiologist's reading. External Record Review External record reviewed: Outpatient record, Prior outpatient labs and Prior outpatient radiology Chronic Conditions Patient?s care impacted by: Diabetes, Hypertension and Other COPD, CHF Critical Care Time Critical Care Time Critical Care Time: Yes Total Critical Care Time: 60 Attestation: I personally attest to this time spent taking care of the patient. Discharge Plan Discharge Clinical Impression: Stercoral colitis, CHF (congestive heart failure), Decreased oral intake Patient Disposition: Admitted As Inpatient Prescriptions: No Action gabapentin 300 mg capsule 600 mg PO QID Rx Instructions: AT 0800,1200,1800,2100 bumetanide 2 mg tablet 4 mg PO DAILY@0800 sennosides [senna] 8.6 mg Tablet 17.2 mg PO BID@0800,2100 ascorbic acid (vitamin C) 500 mg Tablet 500 mg PO DAILY@0800 polyethylene glycol 3350 17 gram/dose Powder 17 g PO DAILY@0800 thiamine HCl (vitamin B1) 100 mg Tablet 100 mg PO DAILY@0800 ondansetron HCl 4 mg tablet 8 mg PO DAILY PRN (Reason: Nausea) insulin lispro 100 unit/mL Solution 1 sliding scale dose SUBCUT TIDAC@0800,1200,1800 Rx Instructions: 150-199=2units,200-249=4units,250-299=6units,300-349=8units,350-399=10units diltiazem HCl [Cardizem CD] 120 mg capsule,extended release 24hr 120 mg PO DAILY@0800 Protocol: Hold for SBP/HR < HOLD for SBP < : 90 HOLD for HR < : 60 digoxin 125 mcg (0.125 mg) tablet 0.125 mg PO DAILY@0800 Eliquis 5 mg tablet 5 mg PO BID@0800,2100 Hold Instructions: Resume on 10/05/23. Hold until cleared by junior linux systems administrator and/or primary care doctor ferrous sulfate 300 mg (60 mg iron)/5 mL Liquid 300 mg PO DAILY Qty: 150 0RF omeprazole 20 mg Capsule,Delayed Release(Dr/Ec) 20 mg PO DAILY@0630 Qty: 30 0RF albuterol sulfate 90 mcg/actuation HFA aerosol inhaler 2 puff inhalation Q4-6H PRN (Reason: shortness of breath or wheezing) Qty: 8.5 0RF Rx Instructions: use with spacer device ferrous sulfate 325 mg (65 mg iron) tablet 325 mg PO DAILY Qty: 30 0RF tramadol 50 mg tablet 50 mg PO Q4H PRN (Reason: Pain, Moderate)
[2023-09-15] MEDS: HYDROmorphone HCl 0.5 MG/0.5 ML SYRINGE IVPUSH (23:13)
[2023-09-15] MEDS: 0.9 % Sodium Chloride 1,000 ML 999 ML IV (23:14)
[2023-09-16] VITALS (7 sets, daily range): BP systolic 109–135; BP diastolic 59–85; PULSE 69–110; RESP 16–23; TEMP 36.2–37.6; O2SAT 88–98
[2023-09-16 00:10] LABS: Appearance Urine Cloudy; Color Urine Yellow; Glucose Urine UA Negative (Negative); Leukocyte Esterase Urine Trace (Negative); Nitrite Urine Negative (Negative); PH 8.5 (5.0-9.0); Specific Gravity - Urine 1.015 (1.005-1.025); UMIC TRIGGER UACC YES; Urine Blood Negative (Negative); Urine Ketones Negative (Negative); Urine Protein Negative (Neg-Trace)
[2023-09-16 00:17] LABS: Bacteria Urine 4+ (None Seen); RBC Urine 0-2 /HPF (0-2); Squamous Epithelial Cell Urine 0-2 /HPF (0-2); WBC Urine 0-5 /HPF (0-5)
[2023-09-16 01:16] LABS: Troponin-I High Sensitivity 43.3 ng/L (<3.5-17.0)
[2023-09-16] MEDS: metroNIDAZOLE/NS 500 MG/100 ML PIGGYBACK 100 MG IV ×4 (01:22→23:42)
[2023-09-16] MEDS: Furosemide 40 MG/4 ML VIAL IVPUSH (01:23)
[2023-09-16 01:37] LABS: Venous Blood Gas Refer to POC result
[2023-09-16 01:38] LABS: VBG HCO3 46 mmol/L (22-26); VBG pCO2 52 mmHg; VBG pH 7.56 (7.32-7.43); VBG pO2 48 mmHg
--- NOTE | 2023-09-16 04:26 | PC.RT ---
Pt refused to wear CPAP for NOC support Overnight. RN and MD aware. CPAP in room on standby
--- NOTE | 2023-09-16 04:43 | P.HPHOSP_ITS ---
History of Present Illness Date of Service: 09/16/23 Attending physician on admission: Luciana Bynum Chief Complaint: Rectal pain Nicole Goldstein is a 72 years old woman with past medical history significant for obesity, COPD on home oxygen, atrial fibrillation on Eliquis, AMY on CPAP and essential hypertension presents department complaining of rectal pain over the last few days associated with constipation. According to ED provider family mentioned that the patient has not been drinking or eating well for the last week and has been intentionally spinning food out. Patient denied any headache, fever or chills. She denies abdominal pain, nausea or vomiting. She stated that she has a chronic cough and denied worsening shortness of breath. She denies any acute urinary symptoms. She is a former tobacco smoker. Denies alcohol abuse or illicit drug use. In the ED, she was found to have stable vital signs. Oxygen saturation is normal and she is currently requiring 3 liters/minute supplemental oxygen which is around her baseline. Blood workup was remarkable for marked leukocytosis of 27.9. There is anemia which is at baseline. Venous blood gas was obtained no respiratory acidosis however, it did show a metabolic alkalosis. Troponin is elevated x2 (41.5--> 42.3 -her troponin has been always elevated, however higher than baseline ). Urinalysis does not show evidence of urinary tract infection. Viral testing for influenza and COVID-19 is negative. CXR showed a slight decrease left lower lobe consolidation, equivocal new focal airspace opacity in the right lower lobe, mildly increased diffuse interstitial coarsening and stable trace left pleural effusion. ECG showed atrial fibrillation with nonspecific T-wave abnormalities in the lateral leads. Blood cultures were obtained. Patient underwent a chest, abdomen and pelvis CT scan that showed [id number] pulmonary edema, dependent atelectasis and consolidation in the LLL (improving), S2 audible at the rectum with associated wall thickening and presacral fat stranding concerning for stercoral colitis. There is also focal thickening at the LS posterolateral aspect of the bladder wall (dependent blood or motor lesion), mild colonic diverticulosis without evidence of acute diverticulitis and hepatic steatosis. Chart review: echocardiogram March 2023: EF 70%, diastolic dysfunction. ED tx: Cefepime 2 g IV x1, metronidazole 500 mg IV x1 Lasix 40 mg IV x1, Dilaudid 0.5 mg p.o. x1. Review of Systems 2 Review of Systems: All 12 systems were reviewed and normal except as noted in HPI. [facility] Medical History Pneumonia Morbid obesity Atrial fibrillation with rapid ventricular response Constipation Lung cancer Pneumonia COPD with acute exacerbation COPD (chronic obstructive pulmonary disease) Carpal tunnel syndrome, left Nerve pain High blood pressure Surgical History H/O: hysterectomy Social History Household Members: None Housing: [facility] Housing Other:: [facility] Do you presently have visiting nurse or other home services: No Alcohol intake: never Patient Tobacco Use Status: Former Tobacco user Tobacco use type: Cigarette Cigarette Packs Per Day: 1 Cigarettes Per Day: 20.0 e-Cigarette/Vaping Use: Never Used Second Hand Smoke Exposure: No Advance Directives: Yes Advance Directives on File: Yes Advance Directives Date on File: 03/23/23 Nutrition Risks: Acute nausea or vomiting x1 week service: No Current occupational status: retired Current occupation: left handed Meds Allergies Allergy/AdvReac Type Severity Reaction Status Date / Time Penicillin Allergy Unknown rash Uncoded 09/15/23 20:26 Active Medications: Current Medications Acetaminophen (Acetaminophen 325 Mg Tablet) 975 mg PO Q6H PRN PRN Reason: Pain, Mild (Pain Scale 1-3) Metronidazole (Flagyl) 500 mg in 100 mls @ 100 mls/hr IV Q8H [facility] Ceftriaxone Sodium 1 gm/ (Sodium Chloride) 50 mls @ 100 mls/hr IV DAILY [facility] Sodium Chloride (0.9 % Sodium Chloride Flush 3 Ml Syringe) 3 ml IVFLUSH QSHIFT [facility] Home Medications Medication Instructions Recorded Confirmed Last Taken Type tramadol 50 mg tablet 50 mg PO Q4H PRN Pain, Moderate 03/15/23 08/18/23 03/15/23 History apixaban 5 mg tablet (Eliquis) 5 mg PO BID@0800,2100 08/18/23 08/18/23 08/18/23 History ascorbic acid (vitamin C) 500 mg 500 mg PO DAILY@0800 08/18/23 08/18/23 08/18/23 History tablet bumetanide 2 mg tablet 4 mg PO DAILY@0800 08/18/23 08/18/23 08/18/23 History digoxin 125 mcg (0.125 mg) tablet 0.125 mg PO DAILY@0800 08/18/23 08/18/23 08/18/23 History diltiazem HCl 120 mg 120 mg PO DAILY@0800 08/18/23 08/18/23 08/18/23 History capsule,extended release 24 hr (Cardizem CD) gabapentin 300 mg capsule 600 mg PO QID 08/18/23 08/18/23 Unknown History insulin lispro 100 unit/mL 1 sliding scale dose subcut 08/18/23 08/18/23 Unknown History subcutaneous solution TIDAC@0800,1200,1800 ondansetron HCl 4 mg tablet 8 mg PO DAILY PRN Nausea 08/18/23 08/18/23 Unknown History polyethylene glycol 3350 17 17 g PO DAILY@0800 08/18/23 08/18/23 08/18/23 History gram/dose oral powder sennosides 8.6 mg tablet (senna) 17.2 mg PO BID@0800,2100 08/18/23 08/18/23 08/18/23 History thiamine HCl (vitamin B1) 100 mg 100 mg PO DAILY@0800 08/18/23 08/18/23 08/18/23 History tablet Physical Exam 2 Vital Signs and Narrative: Vital Signs: Last Vital Signs Temp 99.6 F 09/16/23 00:03 Pulse 110 H 09/16/23 02:14 Resp 20 09/16/23 02:14 BP 120/69 09/16/23 02:14 Pulse Ox 93 09/16/23 02:14 O2 Del Method Room Air 09/16/23 02:14 Oxygen Flow Rate 4 09/15/23 20:24 BMI result Body Mass Index 39.0 Constitutional - Awake and Alert, No apparent distress. Cooperative. Acutely ill. HEENT - Atraumatic. Normocephalic. Nasal cannula in place. Dry oral mucosa. Cardiovascular - Irregular rhythm. Normal rate. Lungs - Decreased breath sound bilaterally. Tachypnea. No respiratory distress. No use of accessory muscles. (+) rhonchi. No crackles. No wheezing. Gastrointestinal - NT / ND; +BS; No rebound or guarding - No CVA tenderness Extremities - No calf tenderness bilaterally, no swelling Musculoskeletal - Normal inspection, normal ROM Skin - Warm/Dry Neurological - Alert & oriented x3. Psychological - Appropriate affect Results Labs 09/15/23 20:32 09/15/23 20:32 Labs: Laboratory Results - last 24 hr 09/15/23 09/15/23 09/15/23 20:32 21:58 22:02 MCV 88.0 MCH 25.6 L MCHC 29.1 L RDW 21.9 H Plt Count 437 H MPV 9.1 L Immature Gran % (Auto) 1.0 H Neut % (Auto) 83.1 H Lymph % (Auto) 7.2 L [place] % (Auto) 8.2 Eos % (Auto) 0.0 Baso % (Auto) 0.5 Lymph # (Auto) 2.0 [place] # (Auto) 2.3 H Eos # (Auto) 0.0 Baso # (Auto) 0.2 Abs Immat Gran (auto) 0.29 H Absolute Neuts (auto) 23.2 H Absolute Nucleated RBC 0.050 H Nucleated RBC % (auto) 0.2 Smear Tech's Comments VERIFIED VBG pH 7.52 H VBG pCO2 68 VBG pO2 43 VBG HCO3 56 H VBG O2 Saturation 63.0 VBG Base Excess 27.8 Anion Gap 16 Estim Creat Clear Calc 50.5 Estimated GFR 51 Random Glucose 129 H Lactic Acid 1.1 Calcium 10.0 Total Bilirubin 0.6 AST 27 ALT 16 Alkaline Phosphatase 147 H B-Natriuretic Peptide 134 H Total Protein 7.2 Albumin 3.0 L Urine Color Urine Appearance Urine pH Ur Specific [place] Urine Protein Urine Glucose (UA) Urine Ketones Urine Blood Urine Nitrite Ur Leukocyte Esterase Urine RBC Urine WBC Ur Squamous Epith Cells Urine Bacteria Hyaline Casts COVID-19 ([facility]) Negative COVID-19 Clin Com See Note Influenza Type A ([facility]ALLORY) Negative Influenza Type B (MALLORY) Negative Influenza A & B Note See Note 09/15/23 09/16/23 23:56 01:32 MCV MCH MCHC RDW Plt Count MPV Immature Gran % (Auto) Neut % (Auto) Lymph % (Auto) [place] % (Auto) Eos % (Auto) Baso % (Auto) Lymph # (Auto) [place] # (Auto) Eos # (Auto) Baso # (Auto) Abs Immat Gran (auto) Absolute Neuts (auto) Absolute Nucleated RBC Nucleated RBC % (auto) Smear Tech's Comments VBG pH 7.56 H VBG pCO2 52 VBG pO2 48 VBG HCO3 46 H VBG O2 Saturation 74.0 VBG Base Excess 21.0 Anion Gap Estim Creat Clear Calc Estimated GFR Random Glucose Lactic Acid Calcium Total Bilirubin AST ALT Alkaline Phosphatase B-Natriuretic Peptide Total Protein Albumin Urine Color Yellow Urine Appearance Cloudy Urine pH 8.5 Ur Specific [place] 1.015 Urine Protein Negative Urine Glucose (UA) Negative Urine Ketones Negative Urine Blood Negative Urine Nitrite Negative Ur Leukocyte Esterase Trace H Urine RBC 0-2 Urine WBC 0-5 Ur Squamous Epith Cells 0-2 Urine Bacteria 4+ Hyaline Casts 3-5 COVID-19 ([facility]HE) COVID-19 Clin Com Influenza Type A ([facility]ALLORY) Influenza Type B (M[facility]ORY) Influenza A & B Note Imaging Radiologist's Impressions: Impressions Chest X-Ray 09/15/23 20:42 IMPRESSION: 1. Slightly decreased left lower lobe consolidation. 2. Equivocal new focal airspace opacities in the right lower lobe. 3. Mildly increased diffuse interstitial coarsening. 4. Stable trace left pleural fluid. Abdomen/Pelvis CT 09/15/23 21:41 IMPRESSION: 1. Moderate to severe pulmonary emphysema. Dependent atelectasis and consolidation in the left lower lobe are improved as compared to prior. 2. Stool ball at the rectum with associated wall thickening and presacral fat stranding, concerning for stercoral colitis. 3. Focal thickening at the left posterolateral aspect of the bladder wall, new as compared to prior. This could correspond to dependent blood (or a mural lesion. Consider correlation with cystoscopy. 4. Mild colonic diverticulosis without evidence of acute diverticulitis. 5. Hepatic steatosis. Chest CT 09/15/23 21:41 IMPRESSION: 1. Moderate to severe pulmonary emphysema. Dependent atelectasis and consolidation in the left lower lobe are improved as compared to prior. 2. Stool ball at the rectum with associated wall thickening and presacral fat stranding, concerning for stercoral colitis. 3. Focal thickening at the left posterolateral aspect of the bladder wall, new as compared to prior. This could correspond to dependent blood (or a mural lesion. Consider correlation with cystoscopy. 4. Mild colonic diverticulosis without evidence of acute diverticulitis. 5. Hepatic steatosis. Assessment and Plan (1) Stercoral colitis: Status: Acute (2) Decreased oral intake: Status: Acute Plan Nicole Goldstein is a 72 years old woman admitted with: * Stercoral colitis associated with constipation/stool ball at the rectum. Sepsis criteria: Leukocytosis and tachycardia. No fever, hypotension or lactic acidosis. Admit to hospitalist service. Stercoral colitis. Antibiotic therapy with ceftriaxone and Flagyl. IV fluids 30 mL/kg not given the patient has history of congestive heart failure. Start gentle hydration. Blood glucose were obtained will follow results. Laxatives/stool softeners ordered. Surgery consult for further recommendations. * Metabolic alkalosis. Possible secondary to chronic hypercapnia. Diuretic use/contraction alkalosis? Bumex dose decreased (according to med rec patient is take 2 mg p.o. daily). * Atrial fibrillation, currently rate controlled. Continue digoxin and diltiazem. Continue Eliquis. Check digoxin level. * Elevated troponin. Patient has chronic elevation of troponin, however today is higher than previous but stable. Likely demand ischemia. Continue to monitor troponin. * Chronic diastolic congestive heart failure. BNP is elevated but lower than prior. Doubt decompensation. Continue Bumex. * Chronic cough. Dependent atelectasis and consolidation, left lower lobe improving. * Chronic anemia. Stable. Continue to monitor. * Focal thickening of the bladder. Dependent blood versus mural lesion. Patient will need evaluation by Urology as an outpatient. * Obstructive sleep apnea. Patient has been refusing her CPAP machine tonight. * Essential hypertension. Continue diltiazem. * Obesity, BMI 39 kg/m2. Lifestyle modification, weight loss. Dietary consult. DVT prophylaxis: Eliquis. GI prophylaxis: PPI. Code status: Full. Patient will need hospitalization for at least 2 midnight for stercoral colitis treatment with IV antibiotics, laxative and surgery service evaluation. Quality Stroke Does the patient have a stroke diagnosis?: No VTE Prior VTE?: No VTE Risk Level:: Medical - moderate - high VTE Device Contraindication: N/A - Device Ordered VTE Drug Contraindication: N/A - Med Ordered
[2023-09-16 05:50] LABS: Basophils Absolute Auto 0.1 X10*3/uL (0.0-0.2); Basophils Percent Auto 0.3 % (0-2); Hematocrit 44.6 % (37.0-47.0); Hemoglobin 13.1 g/dl (12.0-16.0); Imm Gran Abs Auto 0.31 X10*3/uL (0.00-0.03); Imm Gran Pct Auto 1.1 % (0.0-0.4); Lymphocytes Absolute Auto 1.3 X10*3/uL (1.2-4.9); Lymphocytes Percent Auto 4.3 % (20-40); MANUAL DIFF FLAG SCAN; Mean Corpuscular HGB Conc 29.4 g/dl (31.0-35.0); Mean Corpuscular Hemoglobin 25.5 pg (27.0-33.0); Mean Corpuscular Volume 86.9 fL (80.0-98.0); Mean Platelet Volume 8.9 fL (9.4-12.3); Monocytes Percent Auto 6.9 % (2-11); NRBC Pct Auto 0.1 /100WBC (0.0-0.2); Neutrophils Absolute Auto 25.7 x10*3/uL (2.0-8.3); Neutrophils Percent Auto 87.4 % (45-73); Platelet Count 394 X10*3/uL (160-400); Red Blood Count 5.13 X10*6/uL (4.20-5.50); SCAN SMEAR FLAG 1; White Blood Count 29.4 X10*3/uL (4.8-10.8)
[2023-09-16 06:04] LABS: Anion Gap 13 (12-20); Blood Urea Nitrogen 18 mg/dL (9-16); Calcium 10.2 mg/dL (8.4-10.2); Carbon Dioxide 38 mmol/L (22-29); Chloride 92 mmol/L (96-108); Creatinine Clr Calc Pharmacy 48.7; Estimated Glomerular Filt Rate 49; Glucose Random 147 mg/dL (60-115); Potassium 3.3 mmol/L (3.3-5.1); Sodium 140 mmol/L (135-145)
[2023-09-16 06:06] LABS: Digoxin 0.9 ng/mL (0.8-2.0)
[2023-09-16 06:07] LABS: SLIDE REVIEW VERIFIED
[2023-09-16] MEDS: 0.9 % Sodium Chloride 500 ML 75 ML IV (06:36)
--- NOTE | 2023-09-16 06:47 | PC.NURSE ---
pt had large formed bowel movement; pericare provided. purewick changed also. pt repositioned in bed. positioned to right side at this time.
[2023-09-16 08:48] LABS: C Reactive Protein 21.71 mg/dL (< or = 0.50); Procalcitonin 0.86 ng/mL
--- NOTE | 2023-09-16 09:13 | PHA.MEDREC ---
Pharmacy Consult ? Medication Reconciliation Pharmacy has completed the medication reconciliation. Patient poor historian of meds. Spoke to patient's son Bernardino to confirm meds.
--- NOTE | 2023-09-16 09:20 | PM.CNGS ---
History of Present Illness Consult details Consult date: 09/16/23 Requesting physician: Selina Rowan Narrative: 72-year-old female patient with multiple medical issues presenting to the emergency department with complaints of rectal pain and anorexia. Past history is significant for obesity, COPD on home O2, atrial fibrillation on Eliquis, sleep apnea on CPAP, essential hypertension and chronic constipation. Currently she reports pain and pressure in the rectal area but denies taking any stool softeners or cathartics. She denies nausea, vomiting or anterior abdominal pain. In the ED she was noted to have a marked elevation of WBC and a baseline anemia. CT abdomen and pelvis revealed a large stool collection in the rectum with rectal wall thickening and presacral fat stranding suggestive of a stercoral colitis. No free air or abscess is appreciated. This morning she is mildly confused and does complain mainly of rectal pain. Review of Systems Review of Systems: Yes Unobtainable due to mental status PMFSH Past Medical History Medical History Pneumonia Morbid obesity Atrial fibrillation with rapid ventricular response Constipation Lung cancer Pneumonia COPD with acute exacerbation COPD (chronic obstructive pulmonary disease) Carpal tunnel syndrome, left Nerve pain High blood pressure Surgical History Surgical History H/O: hysterectomy Social History Social History Household Members: None Housing: [facility] Housing Other:: [facility] Do you presently have visiting nurse or other home services: No Alcohol intake: never Patient Tobacco Use Status: Former Tobacco user Tobacco use type: Cigarette Cigarette Packs Per Day: 1 Cigarettes Per Day: 20.0 e-Cigarette/Vaping Use: Never Used Second Hand Smoke Exposure: No Advance Directives: Yes Advance Directives on File: Yes Advance Directives Date on File: 03/23/23 Nutrition Risks: Acute nausea or vomiting x1 week service: No Current occupational status: retired Current occupation: left handed Meds Allergies Allergy/AdvReac Type Severity Reaction Status Date / Time Penicillin Allergy Unknown rash Uncoded 09/15/23 20:26 Active Medications: Current Medications Acetaminophen (Acetaminophen 325 Mg Tablet) 975 mg PO Q6H PRN PRN Reason: Pain, Mild (Pain Scale 1-3) Albuterol/Ipratropium (Albuterol/Iprat 2.5/0.5mg 3 Ml Ampul.Neb) 3 ml INHALE RQ4H WHILE AWAKE PRN PRN Reason: Shortness of Breath/Wheezing Apixaban (Apixaban 5 Mg Tablet) 5 mg PO BID LE Bisacodyl (Bisacodyl 5 Mg Tablet.) 10 mg PO DAILY PRN PRN Reason: Constipation Bumetanide (Bumetanide 1 Mg Tablet) 1 mg PO DAILY LE; Protocol Digoxin (Digoxin 0.125 Mg Tablet) 0.125 mg PO DAILY LE Diltiazem HCl (Diltiazem Hcl Cd 120 Mg Cap.Er.Deg) 120 mg PO DAILY LE; Protocol Metronidazole (Flagyl) 500 mg in 100 mls @ 100 mls/hr IV Q8H [facility] Ceftriaxone Sodium 1 gm/ (Sodium Chloride) 50 mls @ 100 mls/hr IV DAILY [facility] Magnesium Hydroxide (Milk Of Magnesia 30 Ml Oral.Susp) 30 ml PO DAILY PRN PRN Reason: Constipation Omeprazole (Omeprazole 40 Mg Capsule.) 40 mg PO DAILY [facility] Sodium Chloride (0.9 % Sodium Chloride Flush 3 Ml Syringe) 3 ml IVFLUSH QSHIFT [facility] Home Medications Medication Instructions Recorded Confirmed Last Taken Type tramadol 50 mg tablet 50 mg PO QID Pain, Moderate 03/15/23 09/16/23 09/15/23 History ascorbic acid (vitamin C) 500 mg 500 mg PO DAILY@0800 08/18/23 09/16/23 09/15/23 History tablet bumetanide 2 mg tablet 4 mg PO DAILY@0808/18/23 09/16/23 09/15/23 History digoxin 125 mcg (0.125 mg) tablet 0.125 mg PO DAILY@0800 08/18/23 09/16/23 09/15/23 History diltiazem HCl 120 mg 120 mg PO DAILY@79908/18/23 09/16/23 09/15/23 History capsule,extended release 24 hr (Cardizem CD) gabapentin 300 mg capsule 600 mg PO QID 08/18/23 09/16/23 09/15/23 History ondansetron HCl 4 mg tablet 8 mg PO DAILY PRN Nausea 08/18/23 09/16/23 Unknown History polyethylene glycol 3350 17 17 g PO Q OTHER DAY@0800 08/18/23 09/16/23 09/15/23 History gram/dose oral powder thiamine HCl (vitamin B1) 100 mg 100 mg PO DAILY@0808/18/23 09/16/23 09/15/23 History tablet albuterol sulfate 2.5 mg/3 mL 2.5 mg inhalation Q4H PRN 09/16/23 09/16/23 Unknown History (0.083 %) solution for nebulization Shortness Of Breath Or Wheezing ferrous sulfate 300 mg (60 mg 300 mg PO DAILY@0809/16/23 09/16/23 09/15/23 History iron)/5 mL oral liquid Physical Exam Vital Signs: Vital Signs: Last Vital Signs Temp 99.6 F 09/16/23 00:03 Pulse 108 H 09/16/23 08:38 Resp 19 09/16/23 08:38 BP 116/66 09/16/23 08:38 Pulse Ox 97 09/16/23 08:38 O2 Del Method Nasal Cannula 09/16/23 08:38 O2 Flow Rate 3 09/16/23 08:38 Oxygen Flow Rate 4 09/15/23 20:24 BMI result Body Mass Index 39.0 Const: Other: Obese female on nasal O2, confused HEENT: Head: Yes normocephalic and Yes atraumatic Resp: Other: Using accessory muscles of respiration. GI: Other: Obese, soft and nondistended, nontender to deep palpation. No rebound, guarding or rigidity. Rectal Exam - Female: deferred (Per ED, dark stool, mild skin breakdown perianal area) Extrem: General: Yes no clubbing, cyanosis or edema Results Labs 09/16/23 05:42 09/16/23 05:42 Labs: Abnormal lab results 09/15/23 09/15/23 09/15/23 Range/Units 20:32 21:58 22:02 WBC 27.9 H (4.8-10.8) X10*3/uL Hgb 11.9 L (12.0-16.0) g/dl MCH 25.6 L (27.0-33.0) pg MCHC 29.1 L (31.0-35.0) g/dl RDW 21.9 H (11.0-16.0) % Plt Count 437 H (160-400) X10*3/uL MPV 9.1 L (9.4-12.3) fL Immature Gran % (Auto) 1.0 H (0.0-0.4) % Neut % (Auto) 83.1 H (45-73) % Lymph % (Auto) 7.2 L (20-40) % [place] # (Auto) 2.3 H (0.1-1.2) X10*3/uL Abs Immat Gran (auto) 0.29 H (0.00-0.03) X10*3/uL Absolute Neuts (auto) 23.2 H (2.0-8.3) x10*3/uL Absolute Nucleated RBC 0.050 H (0.0-0.012) X10*3/uL VBG pH 7.52 H (7.32-7.43) VBG HCO3 56 H (22-26) mmol/L Chloride 86 L (96-108) mmol/L Carbon Dioxide 39 H (22-29) mmol/L BUN 19 H (9-16) mg/dL Random Glucose 129 H (60-115) mg/dL Alkaline Phosphatase 147 H (39-117) U/L Troponin I High Sens 41.5 H D (<3.5-17.0) ng/L C-Reactive Protein (< or = 0.50) mg/dL B-Natriuretic Peptide 134 H (<100) pg/mL Albumin 3.0 L (3.5-5.0) g/dL Ur Leukocyte Esterase (Negative) 09/15/23 09/16/23 09/16/23 Range/Units 23:56 00:44 01:32 WBC (4.8-10.8) X10*3/uL Hgb (12.0-16.0) g/dl MCH (27.0-33.0) pg MCHC (31.0-35.0) g/dl RDW (11.0-16.0) % Plt Count (160-400) X10*3/uL MPV (9.4-12.3) fL Immature Gran % (Auto) (0.0-0.4) % Neut % (Auto) (45-73) % Lymph % (Auto) (20-40) % [place] # (Auto) (0.1-1.2) X10*3/uL Abs Immat Gran (auto) (0.00-0.03) X10*3/uL Absolute Neuts (auto) (2.0-8.3) x10*3/uL Absolute Nucleated RBC (0.0-0.012) X10*3/uL VBG pH 7.56 H (7.32-7.43) VBG HCO3 46 H (22-26) mmol/L Chloride (96-108) mmol/L Carbon Dioxide (22-29) mmol/L BUN (9-16) mg/dL Random Glucose (60-115) mg/dL Alkaline Phosphatase (39-117) U/L Troponin I High Sens 43.3 H (<3.5-17.0) ng/L C-Reactive Protein (< or = 0.50) mg/dL B-Natriuretic Peptide (<100) pg/mL Albumin (3.5-5.0) g/dL Ur Leukocyte Esterase Trace H (Negative) 09/16/23 Range/Units 05:42 WBC 29.4 H (4.8-10.8) X10*3/uL Hgb (12.0-16.0) g/dl MCH 25.5 L (27.0-33.0) pg MCHC 29.4 L (31.0-35.0) g/dl RDW 22.0 H (11.0-16.0) % Plt Count (160-400) X10*3/uL MPV 8.9 L (9.4-12.3) fL Immature Gran % (Auto) 1.1 H (0.0-0.4) % Neut % (Auto) 87.4 H (45-73) % Lymph % (Auto) 4.3 L (20-40) % [place] # (Auto) 2.0 H (0.1-1.2) X10*3/uL Abs Immat Gran (auto) 0.31 H (0.00-0.03) X10*3/uL Absolute Neuts (auto) 25.7 H (2.0-8.3) x10*3/uL Absolute Nucleated RBC 0.020 H (0.0-0.012) X10*3/uL VBG pH (7.32-7.43) VBG HCO3 (22-26) mmol/L Chloride 92 L (96-108) mmol/L Carbon Dioxide 38 H (22-29) mmol/L BUN 18 H (9-16) mg/dL Random Glucose 147 H (60-115) mg/dL Alkaline Phosphatase (39-117) U/L Troponin I High Sens (<3.5-17.0) ng/L C-Reactive Protein 21.71 H (< or = 0.50) mg/dL B-Natriuretic Peptide (<100) pg/mL Albumin (3.5-5.0) g/dL Ur Leukocyte Esterase (Negative) Short CBC 09/15/23 09/16/23 Range/Units 20:32 05:42 WBC 27.9 H 29.4 H (4.8-10.8) X10*3/uL Hgb 11.9 L 13.1 (12.0-16.0) g/dl Hct 40.9 44.6 (37.0-47.0) % Plt Count 437 H 394 (160-400) X10*3/uL BMP 09/15/23 09/16/23 20:32 05:42 Sodium 137 140 Potassium 3.5 3.3 Chloride 86 L 92 L Carbon Dioxide 39 H 38 H BUN 19 H 18 H Creatinine 1.06 1.10 Calcium 10.0 10.2 Liver Function 09/15/23 Range/Units 20:32 Total Bilirubin 0.6 (0.0-1.0) mg/dL AST 27 (5-31) U/L ALT 16 (0-31) U/L Alkaline Phosphatase 147 H (39-117) U/L Albumin 3.0 L (3.5-5.0) g/dL Urine 09/15/23 Range/Units 23:56 Urine Color Yellow Urine Appearance Cloudy Urine pH 8.5 (5.0-9.0) Ur Specific [place] 1.015 (1.005-1.025) Urine Protein Negative (Neg-Trace) mg/dL Urine Glucose (UA) Negative (Negative) mg/dL All other labs normal. Assessment and Plan (1) Stercoral colitis: Status: Acute (2) Constipation: Qualifiers: Constipation type: unspecified constipation type Qualified Code(s): K59.00 - Constipation, unspecified Status: Inactive Plan 72-year-old female patient essentially bed-bound presenting with chronic anemia and constipation found on CT to have evidence of stercoral colitis due to a large stool burden within the rectum. Agree with MOM and Dulcolax to relieve the stool burden. If no improvement suggest adding MiraLax and either fleets or soapsuds enema. Agree with antibiotics as well. Will monitor patient's progress. Procedures Date of Service Date of Service: 09/16/23
[2023-09-16] MEDS: Bumetanide 1 MG TABLET PO (10:13)
[2023-09-16] MEDS: dilTIAZem HCL CD 120 MG CAP.ER.DEG PO (10:13)
[2023-09-16] MEDS: cefTRIAXone sodium 1 GM in 0.9 % Sodium Chloride 50 ML IV (10:14)
[2023-09-16] MEDS: 0.9 % Sodium Chloride Flush 3 ML SYRINGE IVFLUSH ×2 (10:14→18:26)
[2023-09-16] MEDS: Digoxin 0.125 MG TABLET PO (10:14)
[2023-09-16] MEDS: Omeprazole 40 MG CAPSULE.DR PO (10:14)
[2023-09-16] MEDS: Apixaban 5 MG TABLET PO (10:14)
[2023-09-16] MEDS: Benzonatate 100 MG CAPSULE 200 MG PO ×2 (11:00→13:09)
[2023-09-16] MEDS: guaiFENesin DM 100/10/5 ML 5 ML SYRUP PO (11:00)
[2023-09-16 11:27] LABS: Troponin-I High Sensitivity 60.7 ng/L (<3.5-17.0)
--- NOTE | 2023-09-16 12:59 | PM.EVENT ---
Event Note Date of Service: 09/16/23 Event Note: Day hospitalist update S: coughing, no sputum constipated O: Temp Pulse Resp BP Pulse Ox O2 Del Method O2 Flow Rate 98.1 F 84 18 119/67 94 Nasal Cannula, Oxymask 3 09/16/23 09:47 09/16/23 09:47 09/16/23 09:47 09/16/23 09:47 09/16/23 09:47 09/16/23 09:47 09/16/23 09:47 Gen: in no acute distress HEENT: sclera anicteric, moist mucus membranes Neck: supple Lungs: diminished Heart: irregular, no murmurs Abd: soft, non-tender, non-distended Ext: no edema Skin: warm/well-perfused Neuro: alert and oriented x3, no focal findings Psych: appropriate affect A/P: d1 72yo F with obesity, COPD on home oxygen 3L, AMY on home venitlator which she does not use due to claustrophobia, atrial fibrillation on apixaban, HTN presenting with poor intake + rectal pain admitted for stercoral colitis stercoral colitis - Surgery consulted. Will continue ceftriaxone + metronidazole d1. Will give GoLytely not for colonoscopy prep but as laxative to try to dissolve stool bottle possible PNA - though CT improved, PCT is >0.5. on ceftriaxone for colitis as above. will add doxycycline. COPD - continue prn nebs; if develops wheezing may need steroids Tn-I elevation - flat, likely due to demand metabolic alkalosis - likely post-hypercapenic chronic HFpEF - continue bumetanide AMY - not compliant with home ventilator [Shae]; discuss options with RT chronic AF - continue apixaban, digoxin, diltiazem chronic anemia - H+H stable, monitor focal thickening of bladder - outpt Urology eval HTN - diltiazem chronic pain - tramadol + gabapentin VTE ppx - apixaban dispo - TBD In my clinical judgment, the patient requires continued inpatient hospitalization for the following reasons: IV ABX Son updated at bedside. Time Spent With Patient Time: Total time managing care of this patient today ____ minutes.
[2023-09-16] MEDS: Gabapentin 300 MG CAPSULE 600 MG PO ×3 (13:09→23:48)
[2023-09-16] MEDS: Doxycycline Monohydrate 100 MG CAPSULE PO ×2 (13:09→23:48)
--- NOTE | 2023-09-16 13:17 | PC.NURSE ---
Patient's son at bedside stating that she need to be given Tramadol and Gabapentin every 6 hours. Patient's son informed that those medications were not yet ordered but were in her medication list. Patients son decided since she was not going to be getting medication from us anytime soon he would just give her the medication himself that he had brought from home. Patient son administered 1 tablet of tramadol to patient, patient and son educated on the importance of not giving medications from home. Tramadol ordered for 1300, per NOV not administered d/t self administration from son. Next dose due at 1700
[2023-09-16] MEDS: PEG 3350/Na Sulf,Bicarb,Cl/KCL 4,000 ML SOLN.RECON 4000 ML PO (13:48)
--- NOTE | 2023-09-16 15:33 | MHC.CM.PN ---
IMM 09/16/23 mailed to Aleks Goldstein. Nicole has home health care at home of family, [facility] [employer], and [facility]. Her son Melinda is primary contact [phone]. She has all the med equipment at home that she needs. The DC plan is for her to return home to her prior service via ambulance. Son, Melinda has been in touch with [facility] to discuss Hospice services. CM to follow and assist with DC planning.
[2023-09-16] MEDS: traMADoL HCL 50 MG TABLET PO ×2 (18:25→23:48)
[2023-09-16] MEDS: Sennosides/Docusate Sodium TABLET 2 TAB PO (21:58)
[2023-09-17] VITALS: BP 128/63; PULSE 62; RESP 16; TEMP 36; O2SAT 97
[2023-09-17 03:47] VITALS: BP 118/61; PULSE 68; RESP 20; TEMP 36.1; O2SAT 97
[2023-09-17 06:49] LABS: Venous Blood Gas Refer to POC result
[2023-09-17 06:51] LABS: Hematocrit 39.2 % (37.0-47.0); Hemoglobin 11.3 g/dl (12.0-16.0); Mean Corpuscular HGB Conc 28.8 g/dl (31.0-35.0); Mean Corpuscular Hemoglobin 25.7 pg (27.0-33.0); Mean Corpuscular Volume 89.1 fL (80.0-98.0); Mean Platelet Volume 9.1 fL (9.4-12.3); Platelet Count 373 X10*3/uL (160-400); Red Cell Distribution Width 21.5 % (11.0-16.0); White Blood Count 18.7 X10*3/uL (4.8-10.8)
[2023-09-17 06:52] LABS: VBG Base Excess 20.6 mmol/L; VBG HCO3 48 mmol/L (22-26); VBG pCO2 64 mmHg; VBG pH 7.48 (7.32-7.43); VBG pO2 36 mmHg
[2023-09-17 07:20] LABS: Anion Gap 17 (12-20); Blood Urea Nitrogen 21 mg/dL (9-16); Calcium 9.5 mg/dL (8.4-10.2); Carbon Dioxide 38 mmol/L (22-29); Chloride 89 mmol/L (96-108); Creatinine Clr Calc Pharmacy 45.4; Estimated Glomerular Filt Rate 45; Glucose Random 111 mg/dL (60-115); Potassium 2.9 mmol/L (3.3-5.1); Sodium 141 mmol/L (135-145)
[2023-09-17 07:50] VITALS: BP 112/60; PULSE 76; RESP 22; TEMP 36.3; O2SAT 97
[2023-09-17] MEDS: Potassium Chloride Packet 20 MEQ PACKET 40 MEQ PO (08:59)
[2023-09-17] MEDS: Bumetanide 1 MG TABLET 4 MG PO (09:00)
[2023-09-17] MEDS: acetaZOLAMIDE sodium 500 MG VIAL IVPUSH (09:00)
[2023-09-17] MEDS: cefTRIAXone sodium 1 GM in 0.9 % Sodium Chloride 50 ML IV (09:00)
[2023-09-17] MEDS: metroNIDAZOLE/NS 500 MG/100 ML PIGGYBACK 100 MG IV ×3 (09:00→23:37)
[2023-09-17] MEDS: Ferrous Sulfate 300 MG/5 ML LIQUID 220 MG PO (09:00)
[2023-09-17] MEDS: Benzonatate 100 MG CAPSULE 200 MG PO ×3 (09:01→20:44)
[2023-09-17] MEDS: Ascorbic Acid 500 MG TABLET PO (09:01)
[2023-09-17] MEDS: Gabapentin 300 MG CAPSULE 600 MG PO ×4 (09:01→20:44)
[2023-09-17] MEDS: traMADoL HCL 50 MG TABLET PO ×3 (09:01→20:44)
[2023-09-17] MEDS: Digoxin 0.125 MG TABLET PO (09:01)
[2023-09-17] MEDS: Sennosides/Docusate Sodium TABLET 2 TAB PO ×2 (09:01→20:44)
[2023-09-17] MEDS: Omeprazole 40 MG CAPSULE.DR PO (09:01)
[2023-09-17] MEDS: Thiamine HCL 100 MG TABLET PO (09:01)
[2023-09-17] MEDS: dilTIAZem HCL CD 120 MG CAP.ER.DEG PO (09:02)
[2023-09-17] MEDS: Apixaban 5 MG TABLET PO ×2 (09:02→20:45)
[2023-09-17] MEDS: 0.9 % Sodium Chloride Flush 3 ML SYRINGE IVFLUSH ×2 (09:12→17:23)
--- NOTE | 2023-09-17 10:06 | P.PNGS_ITS ---
Subjective Subjective Date of Service: 09/17/23 Interval history: Confused but comfortable; many loose stools passed over the last 24 hours. Physical Exam 2 Vital Signs: Vital Signs: Last Vital Signs Temp 97.4 F 09/17/23 07:50 Pulse 76 09/17/23 07:50 Resp 22 H 09/17/23 07:50 BP 112/60 09/17/23 07:50 Pulse Ox 97 09/17/23 07:50 O2 Del Method Humidified O2 09/17/23 07:50 O2 Flow Rate 7 09/17/23 07:50 Oxygen Flow Rate 4 09/15/23 20:24 BMI result Body Mass Index 39.0 Const: General: no acute distress and confusion Nutritional Appearance: o bese Orientation/consciousness: confusion Resp: Effort & Inspection: normal respiratory effort and no audible wheezes GI: Other: Soft, nondistended, nontender, no guarding or rigidity Skin: Other: Warm and dry. Neuro: General: confusion Objective Data Active Medications Acetaminophen (Acetaminophen 325 Mg Tablet) 975 mg PO Q6H PRN PRN Reason: Pain, Mild (Pain Scale 1-3) Albuterol/Ipratropium (Albuterol/Iprat 2.5/0.5mg 3 Ml Ampul.Neb) 3 ml INHALE RQ4H WHILE AWAKE PRN PRN Reason: Shortness of Breath/Wheezing Apixaban (Apixaban 5 Mg Tablet) 5 mg PO BID [facility] Last Admin: 09/17/23 09:02 Dose: 5 mg Documented By: MARY Ascorbic Acid (Ascorbic Acid 500 Mg Tablet) 500 mg PO DAILY@0800 [facility] Last Admin: 09/17/23 09:01 Dose: 500 mg Documented By: MARY Benzonatate (Benzonatate 100 Mg Capsule) 200 mg PO TID [facility] Last Admin: 09/17/23 09:01 Dose: 200 mg Documented By: MARY Bisacodyl (Bisacodyl 5 Mg Tablet.) 10 mg PO DAILY PRN PRN Reason: Constipation Bumetanide (Bumetanide 1 Mg Tablet) 1 mg PO DAILY [facility]; Protocol Last Admin: 09/17/23 09:12 Dose: Not Given Documented By: MARY Non-Admin Reason: HOLD PER DR> MLAPAH Bumetanide (Bumetanide 1 Mg Tablet) 4 mg PO DAILY@0800 [facility]; Protocol Last Admin: 09/17/23 09:00 Dose: 4 mg Documented By: MARY Digoxin (Digoxin 0.125 Mg Tablet) 0.125 mg PO DAILY [facility] Last Admin: 09/17/23 09:01 Dose: 0.125 mg Documented By: MARY Diltiazem HCl (Diltiazem Hcl Cd 120 Mg Cap.Er.Deg) 120 mg PO DAILY [facility]; Protocol Last Admin: 09/17/23 09:02 Dose: 120 mg Documented By: MARY Doxycycline Monohydrate (Doxycycline Monohydrate 100 Mg Capsule) 100 mg PO Q12H [facility] Last Admin: 09/16/23 23:48 Dose: 100 mg Documented By: SHAI Ferrous Sulfate (Ferrous Sulfate 300 Mg/5 Ml Liquid) 220 mg PO DAILY@0800 [facility] Last Admin: 09/17/23 09:00 Dose: 220 mg Documented By: MARY Gabapentin (Gabapentin 300 Mg Capsule) 600 mg PO QID [facility] Last Admin: 09/17/23 09:01 Dose: 600 mg Documented By: MARY Guaifenesin/Dextromethorphan (Guaifenesin Dm 100/10/5 Ml 5 Ml Syrup) 5 ml PO Q4H PRN PRN Reason: cough Last Admin: 09/16/23 11:00 Dose: 5 ml Documented By: MARY Metronidazole (Flagyl) 500 mg in 100 mls @ 100 mls/hr IV Q8H [facility] Last Admin: 09/17/23 09:00 Dose: 100 mls/hr Documented By: MARY Ceftriaxone Sodium 1 gm/ (Sodium Chloride) 50 mls @ 100 mls/hr IV DAILY [facility] Last Infusion: 09/17/23 09:43 Dose: Infused Documented By: ALEX Magnesium Hydroxide (Milk Of Magnesia 30 Ml Oral.Susp) 30 ml PO DAILY PRN PRN Reason: Constipation Omeprazole (Omeprazole 40 Mg Capsule.Dr) 40 mg PO DAILY [facility] Last Admin: 09/17/23 09:01 Dose: 40 mg Documented By: MARY Polyethylene Glycol/Electrolytes (Peg 3350/Na Sulf,Bicarb,Cl/Kcl 4,000 Ml Soln.Recon) 4,000 ml PO ONCE [facility] Last Admin: 09/16/23 13:48 Dose: 4,000 ml Documented By: ALEX Senna/Docusate Sodium (Sennosides/Docusate Sodium Tablet) 2 tab PO BID [facility] Last Admin: 09/17/23 09:01 Dose: 2 tab Documented By: MARY Sodium Chloride (0.9 % Sodium Chloride Flush 3 Ml Syringe) 3 ml IVFLUSH QSHIFT [facility] Last Admin: 09/17/23 09:12 Dose: 3 ml Documented By: MARY Thiamine HCl (Thiamine Hcl 100 Mg Tablet) 100 mg PO DAILY@0800 [facility] Last Admin: 09/17/23 09:01 Dose: 100 mg Documented By: MARY Tramadol HCl (Tramadol Hcl 50 Mg Tablet) 50 mg PO QID [facility] Last Admin: 09/17/23 09:01 Dose: 50 mg Documented By: MARY Labs 09/17/23 06:42 09/17/23 06:42 Labs: Laboratory Results - last 24 hr 09/17/23 09/17/23 06:42 06:45 MCV 89.1 MCH 25.7 L MCHC 28.8 L RDW 21.5 H Plt Count 373 MPV 9.1 L Absolute Nucleated RBC 0.000 Nucleated RBC % (auto) 0.0 VBG pH 7.48 H VBG pCO2 64 VBG pO2 36 VBG HCO3 48 H VBG O2 Saturation 51.0 VBG Base Excess 20.6 Anion Gap 17 Estim Creat Clear Calc 45.4 Estimated GFR 45 Random Glucose 111 Calcium 9.5 D Microbiology Microbiology Results: Microbiology 09/15/23 21:56 Blood Culture - Preliminary Blood - Venous No growth after 24 hours. 09/15/23 21:58 Blood Culture - Preliminary Blood - Venous No growth after 24 hours. Procedures Date of Service Date of Service: 09/17/23 Progress Note: A&P Assessment and plan (1) Stercoral colitis: Status: Acute Plan Patient improved with current cathartics. Continue with bowel regime post discharge. No surgical intervention required at this time. Please re-consult for any new issues. Time Spent With Patient Time: Total time managing care of this patient today ____ minutes. Quality Stroke Does the patient have a stroke diagnosis?: No VTE Prior VTE?: No VTE Risk Level:: Medical - moderate - high VTE Device Contraindication: N/A - Device Ordered VTE Drug Contraindication: N/A - Med Ordered
[2023-09-17 12:00] VITALS: BP 120/66; PULSE 70; RESP 16; TEMP 36.3; O2SAT 97
--- NOTE | 2023-09-17 12:20 | HO.PM.IMPN ---
Subjective Subjective Date of Service: 09/17/23 Interval History: Doing well no new issues O2 sat 97 on Physical Exam Vital Signs: Vital Signs: Last Vital Signs Temp 97.3 F 09/17/23 12:00 Pulse 70 09/17/23 12:00 Resp 16 09/17/23 12:00 BP 120/66 09/17/23 12:00 Pulse Ox 97 09/17/23 12:00 O2 Del Method Nasal Cannula 09/17/23 12:00 O2 Flow Rate 7 09/17/23 12:00 Body Mass Index 39.0 General: AO X 3, no acute distress Resp: CTA bilateral CVS: S1,S2,RRR GI: +BS, NT, no distention Skin: No rash Neuro: motor grossly intact Psych: appropriate affect Objective Data Active Medications Acetaminophen (Acetaminophen 325 Mg Tablet) 975 mg PO Q6H PRN PRN Reason: Pain, Mild (Pain Scale 1-3) Albuterol/Ipratropium (Albuterol/Iprat 2.5/0.5mg 3 Ml Ampul.Neb) 3 ml INHALE RQ4H WHILE AWAKE PRN PRN Reason: Shortness of Breath/Wheezing Apixaban (Apixaban 5 Mg Tablet) 5 mg PO BID [facility]PL[facility]ED BY [facility] Last Admin: 09/17/23 09:02 Dose: 5 mg Documented By: MARY Ascorbic Acid (Ascorbic Acid 500 Mg Tablet) 500 mg PO DAILY@0800 [facility]PL[facility]ED BY [facility] Last Admin: 09/17/23 09:01 Dose: 500 mg Documented By: MARY Benzonatate (Benzonatate 100 Mg Capsule) 200 mg PO TID [facility]PL[facility] Last Admin: 09/17/23 09:01 Dose: 200 mg Documented By: MARY Bisacodyl (Bisacodyl 5 Mg Tablet.Dr) 10 mg PO DAILY PRN PRN Reason: Constipation Bumetanide (Bumetanide 1 Mg Tablet) 4 mg PO DAILY@0800 [facility]PL[facility]; Protocol Last Admin: 09/17/23 09:00 Dose: 4 mg Documented By: MARY Digoxin (Digoxin 0.125 Mg Tablet) 0.125 mg PO DAILY [facility]PL[facility] Last Admin: 09/17/23 09:01 Dose: 0.125 mg Documented By: MARY Diltiazem HCl (Diltiazem Hcl Cd 120 Mg Cap.Er.Deg) 120 mg PO DAILY [facility]; Protocol Last Admin: 09/17/23 09:02 Dose: 120 mg Documented By: MARY Doxycycline Monohydrate (Doxycycline Monohydrate 100 Mg Capsule) 100 mg PO Q12H [facility]PL[facility] Last Admin: 09/16/23 23:48 Dose: 100 mg Documented By: SHAI Ferrous Sulfate (Ferrous Sulfate 300 Mg/5 Ml Liquid) 220 mg PO DAILY@0800 [facility] Last Admin: 09/17/23 09:00 Dose: 220 mg Documented By: MARY Gabapentin (Gabapentin 300 Mg Capsule) 600 mg PO QID [facility] Last Admin: 09/17/23 09:01 Dose: 600 mg Documented By: MARY Guaifenesin/Dextromethorphan (Guaifenesin Dm 100/10/5 Ml 5 Ml Syrup) 5 ml PO Q4H PRN PRN Reason: cough Last Admin: 09/16/23 11:00 Dose: 5 ml Documented By: MARY Metronidazole (Flagyl) 500 mg in 100 mls @ 100 mls/hr IV Q8H [facility]PL[facility]ED [facility] Last Infusion: 09/17/23 10:16 Dose: Infused Documented By: ALEX Ceftriaxone Sodium 1 gm/ (Sodium Chloride) 50 mls @ 100 mls/hr IV DAILY [facility]PL[facility] Last Infusion: 09/17/23 09:43 Dose: Infused Documented By: ALEX Magnesium Hydroxide (Milk Of Magnesia 30 Ml Oral.Susp) 30 ml PO DAILY PRN PRN Reason: Constipation Omeprazole (Omeprazole 40 Mg Capsule.Dr) 40 mg PO DAILY [facility] Last Admin: 09/17/23 09:01 Dose: 40 mg Documented By: MARY Polyethylene Glycol/Electrolytes (Peg 3350/Na Sulf,Bicarb,Cl/Kcl 4,000 Ml Soln.Recon) 4,000 ml PO ONCE [facility]PL[facility]ED BY [facility] Last Admin: 09/16/23 13:48 Dose: 4,000 ml Documented By: ALEX Senna/Docusate Sodium (Sennosides/Docusate Sodium Tablet) 2 tab PO BID [facility] Last Admin: 09/17/23 09:01 Dose: 2 tab Documented By: MARY Sodium Chloride (0.9 % Sodium Chloride Flush 3 Ml Syringe) 3 ml IVFLUSH QSHIFT REPLACED BY [facility] Last Admin: 09/17/23 09:12 Dose: 3 ml Documented By: MARY Thiamine HCl (Thiamine Hcl 100 Mg Tablet) 100 mg PO DAILY@0800 [facility]PL[facility]ED [facility] Last Admin: 09/17/23 09:01 Dose: 100 mg Documented By: MARY Tramadol HCl (Tramadol Hcl 50 Mg Tablet) 50 mg PO QID [facility] Last Admin: 09/17/23 09:01 Dose: 50 mg Documented By: MARY Labs 09/17/23 06:42 09/17/23 06:42 Labs: Laboratory Results - last 24 hr 09/17/23 09/17/23 06:42 06:45 MCV 89.1 MCH 25.7 L MCHC 28.8 L RDW 21.5 H Plt Count 373 MPV 9.1 L Absolute Nucleated RBC 0.000 Nucleated RBC % (auto) 0.0 VBG pH 7.48 H VBG pCO2 64 VBG pO2 36 VBG HCO3 48 H VBG O2 Saturation 51.0 VBG Base Excess 20.6 Anion Gap 17 Estim Creat Clear Calc 45.4 Estimated GFR 45 Random Glucose 111 Calcium 9.5 D Microbiology Microbiology Results: Microbiology 09/15/23 21:56 Blood Culture - Preliminary Blood - Venous No growth after 24 hours. 09/15/23 21:58 Blood Culture - Preliminary Blood - Venous No growth after 24 hours. Assessment and Plan (1) Acute and chronic respiratory failure, unspecified whether with hypoxia or hypercapnia: Status: Acute (2) Pneumonia: Status: Inactive Plan d8 72yo F with chronic AF on apixaban, chronic HFpEF, DM2, COPD on 4L home O2, lung CA, GERD admitted for acute hypoxia due to RSV infection acute/chronic hypercapneic/hypoxic RF due to RSV infection COPD exacerbation due to RSV infection - weaned back to home O2 requirement, qualifies for non-invasive ventilator at home, will set up delivery for tomorrow - got methylprednisolone 08/15-08/20 neb treatments question of pneumonia - got 1 dose of ceftriaxone and azithromycin on 08/18/23 but none since then, suspect her infection was all viral rather than bacterial given her clinical improvement; recheck PCT acute/chronic normocytic anemia - FOBT negative, Hb stable, per Pulmonary hold off on EGD given RSV infection, can revisit as outpt, repeat CBC refused today, will try again tomorrow hypoK - repleted chronic HFpEF - continue bumetanide Metabolic alkalosis d/t Bume, dimox x 1 persistent AF - continue diltiazem, digoxin - hold apixaban due to anemia DM2 - declines marcus-dose lispro VTE ppx - SCDs dispo - anticipate home with VNA once noninvasive ventiatlro set up In my clinical judgment, the patient requires continued inpatient hospitalization for the following reasons: dispo planning Total time managing care of this patient today: 45 minutes. Quality Stroke Does the patient have a stroke diagnosis?: No VTE Prior VTE?: No VTE Risk Level:: Medical - moderate - high VTE Device Contraindication: N/A - Device Ordered VTE Drug Contraindication: N/A - Med Ordered
--- NOTE | 2023-09-17 12:32 | HO.PM.IMPN ---
Subjective Subjective Date of Service: 09/17/23 Interval History: Seen and examined, overall feels better, O2 sat 97% on 7 liters, no distress, rectal pain is better, Physical Exam Vital Signs: Vital Signs: Last Vital Signs Temp 97.3 F 09/17/23 12:00 Pulse 70 09/17/23 12:00 Resp 16 09/17/23 12:00 BP 120/66 09/17/23 12:00 Pulse Ox 97 09/17/23 12:00 O2 Del Method Nasal Cannula 09/17/23 12:00 O2 Flow Rate 7 09/17/23 12:00 Oxygen Flow Rate 4 09/15/23 20:24 BMI result Body Mass Index 39.0 Const: Other: General: AO X 3, no acute distress Resp: CTA bilateral CVS: S1,S2,RRR GI: +BS, NT, no distention Skin: No rash Neuro: motor grossly intact Psych: appropriate affect Objective Data Active Medications Acetaminophen (Acetaminophen 325 Mg Tablet) 975 mg PO Q6H PRN PRN Reason: Pain, Mild (Pain Scale 1-3) Albuterol/Ipratropium (Albuterol/Iprat 2.5/0.5mg 3 Ml Ampul.Neb) 3 ml INHALE RQ4H WHILE AWAKE PRN PRN Reason: Shortness of Breath/Wheezing Apixaban (Apixaban 5 Mg Tablet) 5 mg PO BID [facility] Last Admin: 09/17/23 09:02 Dose: 5 mg Documented By: MARY Ascorbic Acid (Ascorbic Acid 500 Mg Tablet) 500 mg PO DAILY@0800 [facility] Last Admin: 09/17/23 09:01 Dose: 500 mg Documented By: MARY Benzonatate (Benzonatate 100 Mg Capsule) 200 mg PO TID [facility] Last Admin: 09/17/23 09:01 Dose: 200 mg Documented By: MARY Bisacodyl (Bisacodyl 5 Mg Tablet.Dr) 10 mg PO DAILY PRN PRN Reason: Constipation Bumetanide (Bumetanide 1 Mg Tablet) 4 mg PO DAILY@0800 [facility]; Protocol Last Admin: 09/17/23 09:00 Dose: 4 mg Documented By: MARY Digoxin (Digoxin 0.125 Mg Tablet) 0.125 mg PO DAILY [facility] Last Admin: 09/17/23 09:01 Dose: 0.125 mg Documented By: MARY Diltiazem HCl (Diltiazem Hcl Cd 120 Mg Cap.Er.Deg) 120 mg PO DAILY [facility]; Protocol Last Admin: 09/17/23 09:02 Dose: 120 mg Documented By: MARY Doxycycline Monohydrate (Doxycycline Monohydrate 100 Mg Capsule) 100 mg PO Q12H [facility] Last Admin: 09/16/23 23:48 Dose: 100 mg Documented By: SHAI Ferrous Sulfate (Ferrous Sulfate 300 Mg/5 Ml Liquid) 220 mg PO DAILY@0800 [facility] Last Admin: 09/17/23 09:00 Dose: 220 mg Documented By: MARY Gabapentin (Gabapentin 300 Mg Capsule) 600 mg PO QID [facility] Last Admin: 09/17/23 09:01 Dose: 600 mg Documented By: MRAY Guaifenesin/Dextromethorphan (Guaifenesin Dm 100/10/5 Ml 5 Ml Syrup) 5 ml PO Q4H PRN PRN Reason: cough Last Admin: 09/16/23 11:00 Dose: 5 ml Documented By: MARY Metronidazole (Flagyl) 500 mg in 100 mls @ 100 mls/hr IV Q8H [facility] Last Infusion: 09/17/23 10:16 Dose: Infused Documented By: ALEX Ceftriaxone Sodium 1 gm/ (Sodium Chloride) 50 mls @ 100 mls/hr IV DAILY [facility] Last Infusion: 09/17/23 09:43 Dose: Infused Documented By: ALEX Magnesium Hydroxide (Milk Of Magnesia 30 Ml Oral.Susp) 30 ml PO DAILY PRN PRN Reason: Constipation Omeprazole (Omeprazole 40 Mg Capsule.Dr) 40 mg PO DAILY [facility] Last Admin: 09/17/23 09:01 Dose: 40 mg Documented By: MARY Polyethylene Glycol/Electrolytes (Peg 3350/Na Sulf,Bicarb,Cl/Kcl 4,000 Ml Soln.Recon) 4,000 ml PO ONCE [facility] Last Admin: 09/16/23 13:48 Dose: 4,000 ml Documented By: ALEX Senna/Docusate Sodium (Sennosides/Docusate Sodium Tablet) 2 tab PO BID [facility] Last Admin: 09/17/23 09:01 Dose: 2 tab Documented By: MARY Sodium Chloride (0.9 % Sodium Chloride Flush 3 Ml Syringe) 3 ml IVFLUSH QSHIFT [facility] Last Admin: 09/17/23 09:12 Dose: 3 ml Documented By: MARY Thiamine HCl (Thiamine Hcl 100 Mg Tablet) 100 mg PO DAILY@0800 [facility] Last Admin: 09/17/23 09:01 Dose: 100 mg Documented By: MARY Tramadol HCl (Tramadol Hcl 50 Mg Tablet) 50 mg PO QID [facility] Last Admin: 09/17/23 09:01 Dose: 50 mg Documented By: MARY Labs 09/17/23 06:42 09/17/23 06:42 Labs: Laboratory Results - last 24 hr 09/17/23 09/17/23 06:42 06:45 MCV 89.1 MCH 25.7 L MCHC 28.8 L RDW 21.5 H Plt Count 373 MPV 9.1 L Absolute Nucleated RBC 0.000 Nucleated RBC % (auto) 0.0 VBG pH 7.48 H VBG pCO2 64 VBG pO2 36 VBG HCO3 48 H VBG O2 Saturation 51.0 VBG Base Excess 20.6 Anion Gap 17 Estim Creat Clear Calc 45.4 Estimated GFR 45 Random Glucose 111 Calcium 9.5 D Microbiology Microbiology Results: Microbiology 09/15/23 21:56 Blood Culture - Preliminary Blood - Venous No growth after 24 hours. 09/15/23 21:58 Blood Culture - Preliminary Blood - Venous No growth after 24 hours. Assessment and Plan (1) Decreased oral intake: Status: Acute (2) Stercoral colitis: Status: Acute Plan 72yo F with obesity, COPD on home oxygen 3L, AMY on home venitlator which she does not use due to claustrophobia, atrial fibrillation on apixaban, HTN presenting with poor intake + rectal pain admitted for stercoral colitis stercoral colitis - Surgery consulted. Will continue ceftriaxone + metronidazole 09/16. -Seen by Surgery Kb not for colonoscopy prep but as laxative to try to dissolve stool bottle and indication for surgery possible PNA - though CT improved, Procalcitonin is >0.5. on ceftriaxone for colitis as above. doxycycline added COPD - continue prn nebs; if develops wheezing may need steroids, -O2 goal of sat 88 to 92 Tn-I elevation - flat, likely due to demand metabolic alkalosis - likely post-hypercapenic and diuretics -diamox x 1 chronic HFpEF - continue bumetanide AMY - not compliant with home ventilator [Shae]; discuss options with RT chronic AF - continue apixaban, digoxin, diltiazem chronic anemia - H+H stable, monitor focal thickening of bladder - outpt Urology eval HTN - diltiazem chronic pain - tramadol + gabapentin VTE ppx - apixaban dispo - TBD In my clinical judgment, the patient requires continued inpatient hospitalization for the following reasons: IV ABX Quality Stroke Does the patient have a stroke diagnosis?: No VTE Prior VTE?: No VTE Risk Level:: Medical - moderate - high VTE Device Contraindication: N/A - Device Ordered VTE Drug Contraindication: N/A - Med Ordered
[2023-09-17] MEDS: Doxycycline Monohydrate 100 MG CAPSULE PO ×2 (13:01→23:37)
[2023-09-17 15:18] VITALS: BP 108/59; PULSE 77; RESP 20; TEMP 36.2; O2SAT 97
[2023-09-17 20:00] VITALS: BP 110/58; PULSE 75; RESP 18; TEMP 36.3; O2SAT 95
[2023-09-18] VITALS: BP 111/57; PULSE 64; RESP 18; TEMP 37.1; O2SAT 94
[2023-09-18 04:00] VITALS: BP 129/63; PULSE 62; RESP 18; TEMP 36.4; O2SAT 97
[2023-09-18 07:28] VITALS: BP 123/104; PULSE 80; RESP 18; TEMP 36.6; O2SAT 92
[2023-09-18] MEDS: Apixaban 5 MG TABLET PO (08:09)
[2023-09-18] MEDS: Gabapentin 300 MG CAPSULE 600 MG PO ×2 (08:09→12:22)
[2023-09-18] MEDS: Digoxin 0.125 MG TABLET PO (08:09)
[2023-09-18] MEDS: Bumetanide 1 MG TABLET 4 MG PO (08:09)
[2023-09-18] MEDS: Benzonatate 100 MG CAPSULE 200 MG PO (08:09)
[2023-09-18] MEDS: Sennosides/Docusate Sodium TABLET 2 TAB PO (08:09)
[2023-09-18] MEDS: dilTIAZem HCL CD 120 MG CAP.ER.DEG PO (08:10)
[2023-09-18] MEDS: Ferrous Sulfate 300 MG/5 ML LIQUID 220 MG PO (08:10)
[2023-09-18] MEDS: Thiamine HCL 100 MG TABLET PO (08:10)
[2023-09-18] MEDS: traMADoL HCL 50 MG TABLET PO ×2 (08:10→12:22)
[2023-09-18] MEDS: Ascorbic Acid 500 MG TABLET PO (08:10)
[2023-09-18] MEDS: 0.9 % Sodium Chloride Flush 3 ML SYRINGE IVFLUSH (08:10)
[2023-09-18] MEDS: Omeprazole 40 MG CAPSULE.DR PO (08:10)
[2023-09-18] MEDS: cefTRIAXone sodium 1 GM in 0.9 % Sodium Chloride 50 ML IV (08:11)
[2023-09-18] MEDS: metroNIDAZOLE/NS 500 MG/100 ML PIGGYBACK 100 MG IV (08:17)
--- NOTE | 2023-09-18 09:14 | MHC.CM.PN ---
Addendum entered by Sydni Dillon RN 09/18/23 10:29: IMM DELIVERED TO BEDSIDE, PT DECLINES TO COMPLETE A NEW MOLST AND REPORTS SHE WANTS HER FAMILY TO DECIDE HOWEVER DID REPORT SHE DOES NOT WANT TO RETURN TO HOSPITAL AND DOES NOT WANT A CPAP, PT CALLED SON CONNIE AND PLACED HIM ON SPEAKER AND PLAN TO SEND BLANK MOLST HOME W/PT AND FAMILY WILL COMPLETE W/PCP. Original Note: CM MET W/PT'S SON/HCP LILY AT BEDSIDE, CONNIE REPORTS HE SPOKE W/ARLEEN AT [facility] REGARDING HOSPICE ON MONDAY AND WOULD LIKE CM TO SET UP TRANSPORT PT HOME AT 1PM, REFERRAL PLACED TO [facility] AND THIS CM SPOKE W/ARLEEN WHO CLARIFIES THAT IT IS HOSPICE PT REALLY HAS BEEN ON PALLIATIVE CARE AT HOME AND THEY WILL REACH OUT TO PT'S PCP DR. MATA WELL. AKIL CONFIRMS THAT PT CAN BE TRANSFERRED AT 1PM.
[2023-09-18 09:26] LABS: Anion Gap 12 (12-20); Blood Urea Nitrogen 17 mg/dL (9-16); Calcium 9.5 mg/dL (8.4-10.2); Carbon Dioxide 37 mmol/L (22-29); Chloride 92 mmol/L (96-108); Creatinine Clr Calc Pharmacy 46.2; Estimated Glomerular Filt Rate 46; Glucose Random 134 mg/dL (60-115); Potassium 2.9 mmol/L (3.3-5.1); Sodium 138 mmol/L (135-145)
[2023-09-18] MEDS: Potassium Chloride Packet 20 MEQ PACKET 40 MEQ PO (10:12)
[2023-09-18] MEDS: Doxycycline Monohydrate 100 MG CAPSULE PO (10:12)
--- NOTE | 2023-09-18 10:37 | PM.DS ---
DS: Providers Provider Date of Service: 09/18/23 Date of admission: 09/16/23 02:21 Primary care physician: Luigi Hong MD Consults: 09/16/23 02:24 Consult to General Surgery Routine Consulting Provider: [facility] General Surgeons Reason for consultation: Stercoral colitis Has provider been notified: No DS: Diagnosis Discharge Diagnosis (1) Decreased oral intake: Status: Acute (2) Stercoral colitis: Status: Acute DS: Summary Hospital Course Hospital Course: admission hpi Chief Complaint: Rectal pain Nicole Goldstein is a 72 years old woman with past medical history significant for obesity, COPD on home oxygen, atrial fibrillation on Eliquis, AMY on CPAP and essential hypertension presents department complaining of rectal pain over the last few days associated with constipation. According to ED provider family mentioned that the patient has not been drinking or eating well for the last week and has been intentionally spinning food out. Patient denied any headache, fever or chills. She denies abdominal pain, nausea or vomiting. She stated that she has a chronic cough and denied worsening shortness of breath. She denies any acute urinary symptoms. She is a former tobacco smoker. Denies alcohol abuse or illicit drug use. In the ED, she was found to have stable vital signs. Oxygen saturation is normal and she is currently requiring 3 liters/minute supplemental oxygen which is around her baseline. Blood workup was remarkable for marked leukocytosis of 27.9. There is anemia which is at baseline. Venous blood gas was obtained no respiratory acidosis however, it did show a metabolic alkalosis. Troponin is elevated x2 (41.5--> 42.3 -her troponin has been always elevated, however higher than baseline ). Urinalysis does not show evidence of urinary tract infection. Viral testing for influenza and COVID-19 is negative. CXR showed a slight decrease left lower lobe consolidation, equivocal new focal airspace opacity in the right lower lobe, mildly increased diffuse interstitial coarsening and stable trace left pleural effusion. ECG showed atrial fibrillation with nonspecific T-wave abnormalities in the lateral leads. Blood cultures were obtained. Patient underwent a chest, abdomen and pelvis CT scan that showed [id number] pulmonary edema, dependent atelectasis and consolidation in the LLL (improving), S2 audible at the rectum with associated wall thickening and presacral fat stranding concerning for stercoral colitis. There is also focal thickening at the LS posterolateral aspect of the bladder wall (dependent blood or motor lesion), mild colonic diverticulosis without evidence of acute diverticulitis and hepatic steatosis. Chart review: echocardiogram March 2023: EF 70%, diastolic dysfunction. ED tx: Cefepime 2 g IV x1, metronidazole 500 mg IV x1 Lasix 40 mg IV x1, Dilaudid 0.5 mg p.o. x1. hospital course: 72yo F with obesity, COPD on home oxygen 3L, AMY on home venitlator which she does not use due to claustrophobia, atrial fibrillation on apixaban, HTN. She presented with poor intake + rectal pain and admitted for stercoral colitis GoLytely not for colonoscopy prep but as laxative to try to dissolve stool burden and there was no indication for surgery. Over all is doing better and will complete a 7 day course of antibiotics with Switch to Ceftin and Flagyl a possible pneumonia, treated with Ceftriaxone as above and Doxy was added and will discharge with above antibiotics COPD--no acute exacerbation, continued bronchodilators as needed and Oxygen gaol of 88 to 92, she is not compliant with home ventilator as stated earlier due to claustrophobia. Tn-I elevation - flat, likely due to demand metabolic alkalosis - likely post-hypercapenic and diuretics, treated with Diamox x 1 with no signficant shift in bicab chronic HFpEF, no decompensation, - continue bumetanide AMY - not compliant with home ventilator [Shae]; discuss options with RT chronic AFIB - continue apixaban, digoxin, diltiazem chronic anemia - H+H stable, focal thickening of bladder - outpt Urology eval HTN - diltiazem HypOkalemia--likely from diuretic, oral replacement and should be on chronic potassium supplement chronic pain - tramadol + gabapentin Patient wishes to go home with hospice, this has been initiated by the family on outpatient basis Time Attestation Discharge coordination time: Greater than 30 minutes Quality: Safe Use of Opioids Does Pt have an Active Cancer Diagnosis on the Problem List?: No Quality: Stroke Does the patient have a stroke diagnosis?: No Physical Exam Vital Signs: Vital Signs: Last Vital Signs Temp 97.8 F 09/18/23 07:28 Pulse 80 09/18/23 07:28 Resp 18 09/18/23 07:28 BP 123/104 H 09/18/23 07:28 Pulse Ox 92 09/18/23 07:28 O2 Del Method Nasal Cannula 09/18/23 07:28 O2 Flow Rate 7 09/18/23 04:00 Oxygen Flow Rate 4 09/15/23 20:24 BMI result Body Mass Index 39.0 Const: Other: General: AO X 3, no acute distress Resp: CTA bilateral CVS: S1,S2,RRR GI: +BS, NT, no distention Skin: No rash Neuro: motor grossly intact Psych: appropriate affect DS: Data Data Completed and Pending Labs on day of discharge: Laboratory Results - last 24 hr 09/18/23 08:34 Sodium 138 Potassium 2.9 L* Chloride 92 L Carbon Dioxide 37 H Anion Gap 12 BUN 17 H Creatinine 1.16 Estim Creat Clear Calc 46.2 Estimated GFR 46 Random Glucose 134 H Calcium 9.5 Preliminary micro results at discharge 09/15/23 21:56 Blood Culture - Preliminary Blood - Venous No growth after 48 hours. 09/15/23 21:58 Blood Culture - Preliminary Blood - Venous No growth after 48 hours. Discharge Plan Discharge Anticipated Discharge Date/Time: 09/18/23 10:36 Patient Disposition: Home Health Service Discharge Diagnosis: Acute on chronic resp failure, Referrals: Alissa DUNAWAY [Outside] - 1 Day Luigi Hong MD [Primary Care Provider] - 1 Week Discharge Medications: New cefuroxime axetil 500 mg tablet 500 mg PO BID 4 Days Qty: 8 0RF metronidazole 500 mg tablet 500 mg PO BID Qty: 8 0RF potassium chloride 20 mEq packet 20 meq PO BID Qty: 30 0RF Continued gabapentin 300 mg capsule 600 mg PO QID Rx Instructions: AT 0800,1200,1800,2100 bumetanide 2 mg tablet 4 mg PO DAILY@0800 ascorbic acid (vitamin C) 500 mg Tablet 500 mg PO DAILY@0800 polyethylene glycol 3350 17 gram/dose Powder 17 g PO Q OTHER DAY@0800 thiamine HCl (vitamin B1) 100 mg Tablet 100 mg PO DAILY@0800 ondansetron HCl 4 mg tablet 8 mg PO DAILY PRN (Reason: Nausea) diltiazem HCl [Cardizem CD] 120 mg capsule,extended release 24hr 120 mg PO DAILY@0800 Protocol: Hold for SBP/HR < HOLD for SBP < : 90 HOLD for HR < : 60 digoxin 125 mcg (0.125 mg) tablet 0.125 mg PO DAILY@0800 omeprazole 20 mg Capsule,Delayed Release(Dr/Ec) 20 mg PO DAILY@0630 Qty: 30 0RF tramadol 50 mg tablet 50 mg PO QID albuterol sulfate 2.5 mg /3 mL (0.083 %) Solution For Nebulization 2.5 mg INHALATION Q4H PRN (Reason: Shortness Of Breath Or Wheezing) ferrous sulfate 220 mg (44 mg iron)/5 mL solution 220 mg PO DAILY@0800 Discharge Orders: Discharge Order (Routine); Ordered 09/18/23 Ordered By: Kermit Graham Diet: Advance to usual diet Activity on Discharge: As tolerated Stand Alone Forms: Patient Portal Discharge page Other Ambulatory Orders: Basic Metabolic Panel Fasting (Routine) Timeframe: [id number] Facility: [facility] - Location: Laboratory Ordered By: Kermit Graham Care Plan Goals: recovery from stercoral colitis, and chronic respiratory failure copd Health Concerns: chronic respiratory failure due to copd stercoral colitis ultimate desire for hospice Plan of Treatment: take cefuroxime and flgyl for stercoral colitis continue inhalers for copd continue bumex for heart failure take potassium supplement for low potassium follow with hospice as previously arranged follow up with your Dogr in 1 to 2 weeks Assessment: see above
[2023-09-18 11:32] VITALS: BP 151/69; PULSE 63; RESP 18; TEMP 36.2; O2SAT 92
== END 2023-09-18 13:52 | disposition home health service (06) | DRG 391 ==
LOC: HO.ED 09-16 00:45 → HO.EDOVER 09-16 02:29 → HO.IMC 09-16 07:38
PROVIDERS: Family Medicine; Admitting Provider Internal Medicine; Emergency Provider Student in an Organized Health Care Education/Training Program; PCP Internal Medicine; Visit Provider Internal Medicine
DX: K52.89 Other specified noninfective gastroenteritis and colitis (principal); J18.9 Pneumonia, unspecified organism; J44.0 Chronic obstructive pulmonary disease with (acute) lower respiratory infection; I50.32 Chronic diastolic (congestive) heart failure; E87.3 Alkalosis; I48.20 Chronic atrial fibrillation, unspecified; K59.09 Other constipation; G47.33 Obstructive sleep apnea (adult) (pediatric); D64.9 Anemia, unspecified; F40.240 Claustrophobia; E66.9 Obesity, unspecified; Z68.39 Body mass index [BMI] 39.0-39.9, adult; Z20.822 Contact with and (suspected) exposure to COVID-19; Z91.199 Patient's noncompliance with other medical treatment and regimen due to unspecified reason; Z99.81 Dependence on supplemental oxygen; Z87.891 Personal history of nicotine dependence; Z74.01 Bed confinement status; Z88.0 Allergy status to penicillin; Z79.01 Long term (current) use of anticoagulants; Z79.899 Other long term (current) drug therapy
CPT/HCPCS: 36415; 71045; 71260; 74177; 80048; 80053; 80162; 81001; 81003; 82803; 83605; 83880; 84145; 84484; 85025; 85027; 86140; 87040; 87502; 87635; 93005; 99285; J0692; J0696; J1120; J1170; J1836; J1940; Q9967

== ENCOUNTER → 2023-09-15 20:47 | Outpatient (BNV) | payer MEDICARE, OTHER, SELFPAY | PROVIDERS: Admitting Provider Internal Medicine; Emergency Provider Student in an Organized Health Care Education/Training Program; PCP Internal Medicine; Visit Provider Internal Medicine Cardiovascular Disease | DX: R94.31 Abnormal electrocardiogram [ECG] [EKG] (principal) | CPT/HCPCS: 93010 ==

== ENCOUNTER → 2023-09-16 02:21 | Outpatient (BNV) | payer MEDICARE, OTHER, SELFPAY | PROVIDERS: Admitting Provider Internal Medicine; Emergency Provider Student in an Organized Health Care Education/Training Program; PCP Internal Medicine; Visit Provider Internal Medicine | DX: K52.89 Other specified noninfective gastroenteritis and colitis (principal); R63.8 Other symptoms and signs concerning food and fluid intake | CPT/HCPCS: 99222; 99232; 99238; 99499 ==

== ENCOUNTER → 2023-09-16 02:21 | Outpatient (BNV) | payer MEDICARE, OTHER, SELFPAY | PROVIDERS: Admitting Provider Internal Medicine; Emergency Provider Student in an Organized Health Care Education/Training Program; PCP Internal Medicine; Visit Provider Surgery | DX: K52.89 Other specified noninfective gastroenteritis and colitis (principal) | CPT/HCPCS: 99222; 99232 ==

== ENCOUNTER 2023-12-05 10:04 | Outpatient (REF) | payer MEDICARE, OTHER, SELFPAY ==
[2023-12-05 10:08] LABS: MANUAL DIFF FLAG NO
[2023-12-05 10:11] LABS: Basophils Absolute Auto 0.1 X10*3/uL (0.0-0.2); Basophils Percent Auto 0.6 % (0-2); Eosinophils Absolute Auto 0.3 X10*3/uL (0.0-0.4); Eosinophils Percent Auto 2.5 % (0-4); Hematocrit 42.8 % (37.0-47.0); Hemoglobin 13.2 g/dl (12.0-16.0); Imm Gran Abs Auto 0.02 X10*3/uL (0.00-0.03); Imm Gran Pct Auto 0.2 % (0.0-0.4); Lymphocytes Absolute Auto 2.2 X10*3/uL (1.2-4.9); Lymphocytes Percent Auto 21.5 % (20-40); Mean Corpuscular HGB Conc 30.8 g/dl (31.0-35.0); Mean Corpuscular Hemoglobin 26.9 pg (27.0-33.0); Mean Corpuscular Volume 87.2 fL (80.0-98.0); Mean Platelet Volume 9.4 fL (9.4-12.3); Monocytes Absolute Auto 0.8 X10*3/uL (0.1-1.2); Monocytes Percent Auto 7.8 % (2-11); Neutrophils Absolute Auto 6.9 x10*3/uL (2.0-8.3); Neutrophils Percent Auto 67.4 % (45-73); Platelet Count 271 X10*3/uL (160-400); Red Blood Count 4.91 X10*6/uL (4.20-5.50); White Blood Count 10.3 X10*3/uL (4.8-10.8)
[2023-12-05 11:38] LABS: Alanine Aminotransferase 19 U/L (0-31); Albumin Level 2.9 g/dL (3.5-5.0); Alkaline Phosphatase 107 U/L (39-117); Anion Gap 11 (12-20); Aspartate Amino Transferase 29 U/L (5-31); Bilirubin Total 0.3 mg/dL (0.0-1.0); Blood Urea Nitrogen 11 mg/dL (9-16); Calcium 9.7 mg/dL (8.4-10.2); Chloride 93 mmol/L (96-108); Estimated Glomerular Filt Rate > 60; Glucose Random 99 mg/dL (60-115); Potassium 3.8 mmol/L (3.3-5.1); Sodium 140 mmol/L (135-145); Total Protein 6.6 g/dL (6.5-8.0)
[2023-12-05 11:56] LABS: Carbon Dioxide 41 mmol/L (22-29)
== END 2023-12-05 10:05 | disposition home or self-care (01) ==
LOC: HO.HVNA 10:04
PROVIDERS: Visit Provider Internal Medicine
DX: J96.11 Chronic respiratory failure with hypoxia (principal)
CPT/HCPCS: 36415; 80053; 85025

== ENCOUNTER 2024-02-07 18:48 | Outpatient (REF) | payer MEDICARE, OTHER, SELFPAY ==
[2024-02-07 18:53] LABS: MANUAL DIFF FLAG NO
[2024-02-07 18:57] LABS: Basophils Absolute Auto 0.1 X10*3/uL (0.0-0.2); Basophils Percent Auto 0.5 % (0-2); Eosinophils Absolute Auto 0.1 X10*3/uL (0.0-0.4); Eosinophils Percent Auto 1.2 % (0-4); Hematocrit 43.6 % (37.0-47.0); Imm Gran Abs Auto 0.03 X10*3/uL (0.00-0.03); Imm Gran Pct Auto 0.2 % (0.0-0.4); Lymphocytes Absolute Auto 2.3 X10*3/uL (1.2-4.9); Lymphocytes Percent Auto 18.7 % (20-40); Mean Corpuscular HGB Conc 32.1 g/dl (31.0-35.0); Mean Corpuscular Hemoglobin 27.5 pg (27.0-33.0); Mean Corpuscular Volume 85.7 fL (80.0-98.0); Monocytes Absolute Auto 0.9 X10*3/uL (0.1-1.2); Monocytes Percent Auto 7.7 % (2-11); Neutrophils Absolute Auto 8.7 x10*3/uL (2.0-8.3); Neutrophils Percent Auto 71.7 % (45-73); Platelet Count 324 X10*3/uL (160-400); Red Blood Count 5.09 X10*6/uL (4.20-5.50); Red Cell Distribution Width 14.4 % (11.0-16.0); White Blood Count 12.1 X10*3/uL (4.8-10.8)
[2024-02-07 19:53] LABS: Alanine Aminotransferase 18 U/L (0-31); Albumin Level 3.4 g/dL (3.5-5.0); Alkaline Phosphatase 124 U/L (39-117); Anion Gap 17 (12-20); Aspartate Amino Transferase 30 U/L (5-31); Bilirubin Total 0.5 mg/dL (0.0-1.0); Blood Urea Nitrogen 13 mg/dL (9-16); Calcium 9.9 mg/dL (8.4-10.2); Carbon Dioxide 31 mmol/L (22-29); Chloride 91 mmol/L (96-108); Estimated Glomerular Filt Rate 57; Glucose Random 114 mg/dL (60-115); Iron 47 mcg/dL (30-160); Percent Iron Saturation 21 % (15-50); Sodium 136 mmol/L (135-145); Total Iron Binding Capacity 223 mcg/dL (228-428); Total Protein 7.7 g/dL (6.5-8.0); Unsaturated Iron Binding 176 ug/dL
[2024-02-07 20:01] LABS: Thyroid Stimulating Hormone 0.19 uIU/mL (0.32-4.0)
== END 2024-02-07 18:49 | disposition home or self-care (01) ==
LOC: HO.LNP 18:48
PROVIDERS: Visit Provider Internal Medicine
DX: J44.9 Chronic obstructive pulmonary disease, unspecified (principal); I50.9 Heart failure, unspecified; I11.0 Hypertensive heart disease with heart failure
CPT/HCPCS: 80053; 83540; 84443; 85025

== ENCOUNTER 2024-02-12 18:23 | Outpatient (REF) | payer MEDICARE, OTHER, SELFPAY ==
[2024-02-12 18:30] LABS: Appearance Urine Turbid; Color Urine Dark Yellow; Glucose Urine UA Negative (Negative); Leukocyte Esterase Urine Moderate (2+) (Negative); Nitrite Urine Positive (Negative); PH 5.5 (5.0-9.0); UMIC TRIGGER UA YES; Urine Blood Trace (Negative); Urine Ketones Trace mg/dL (Negative); Urine Protein 100 (2+) mg/dL (Neg-Trace)
[2024-02-12 18:33] LABS: Bacteria Urine 4+ (None Seen); WBC Urine >50 /HPF (0-5)
== END 2024-02-12 18:24 | disposition home or self-care (01) ==
LOC: HO.LNP 18:23
PROVIDERS: Visit Provider Internal Medicine
DX: R30.0 Dysuria (principal)
CPT/HCPCS: 81001; 87086; 87088; 87186

== ENCOUNTER 2025-01-28 06:00 | Emergency (ER) | payer MEDICARE, OTHER, SELFPAY ==
[2025-01-28] VITALS (9 sets, daily range): BP systolic 85–121; BP diastolic 40–66; PULSE 67–84; RESP 14–28; TEMP 36.2–36.8; O2SAT 90–97; BMI 33.5
--- NOTE | 2025-01-28 | ECG_ITS ---
Test Reason : FALL Blood Pressure : */* mmHG Vent. Rate : 75 BPM Atrial Rate : * BPM P-R Int : * ms QRS Dur : 92 ms QT Int : 368 ms P-R-T Axes : * -32 12 degrees QTcB Int : 410 ms Atrial fibrillation with premature ventricular or aberrantly conducted complexes Left axis deviation Nonspecific T wave abnormality Abnormal ECG When compared with ECG of 15-Sep-2023 20:47, ST no longer depressed in Lateral leads Referred By: Generic ED Physician Electronically Signed By: BRO HADDAD MD
--- NOTE | ~2025-01-28 | CT_ITS ---
EXAMINATION: CT CERVICAL SPINE WITHOUT CONTRAST CLINICAL INFORMATION: Status post fall. COMPARISON: None available. TECHNIQUE: Contiguous axial images through the cervical spine using 3 mm collimation with bone and soft tissue algorithm. Sagittal and coronal reformatted images and bone algorithm. DLP: 401.[address] examination was performed using dose optimization techniques as appropriate, variously including the following: *Automated exposure control *Adjustment of mA and/or kV according to patient size (this includes techniques or standardized protocols for targeted exams where dose is matched to indication/reason for exam; i.e. extremities or head) *Use of iterative reconstruction technique FINDINGS: Limited by patient's motion artifact. Craniocervical junction is intact with normal alignment between the occipital condyles and the lateral masses of C1. Multilevel facet joint hypertrophy more pronounced at C3-4 and C4-5 levels. C1 is intact. C2 is intact. C3 is intact. Facet joint hypertrophy. C4 is intact. Facet joint hypertrophy. C5 is intact. Facet joint hypertrophy. C6 is intact. Facet joint hypertrophy. C7 is intact. Cortical irregularity at the anterior superior endplate of T1. No prevertebral compartment hematoma. Calcified plaques in both carotid bulbs and proximal ICAs. Bilateral apical lung scarring more conspicuous on the left lung apex. Partially calcified nodules in the right thyroid lobe. Tympanic cavities and mastoid cells are aerated. CT/CT cervical spine wo IV con IMPRESSION: Concerning acute nondisplaced fracture anterior superior endplate T1. Multilevel cervical spondylosis. Acute on chronic airspace disease, left lung apex. Fleischner guidelines were followed. Electronically signed by: Fritz Jaramillo MD 01/28/2025 09:41 AM EDT
--- NOTE | ~2025-01-28 | CT_ITS ---
EXAMINATION: CT HEAD WITHOUT CONTRAST CLINICAL INFORMATION: Fall with head strike. COMPARISON: None available. TECHNIQUE: Contiguous axial imaging was performed from the skull base to vertex without intravenous administration of contrast. This CT examination was performed using dose optimization techniques as appropriate, variously including the following: *Automated exposure control *Adjustment of mA and/or kV according to patient size (this includes techniques or standardized protocols for targeted exams where dose is matched to indication/reason for exam; i.e. extremities or head) *Use of iterative reconstruction technique FINDINGS: There is no evidence of intracranial hemorrhage or extra-axial fluid collection. There is no mass effect, or edema. No CT evidence of acute territorial infarct. Ventricles, sulci, and cisterns are mildly diffusely prominent, in keeping with age-related cerebral and cerebellar volume loss. Prominent sulci overlying the frontal lobes. No hydrocephalus. No midline shift. Negative hyperdense MCA sign. Negative insular ribbon sign. Patchy periventricular and deep white matter hypoattenuation is consistent with moderate small vessel ischemic changes. 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 Partial empty sella. Atheromatous calcification of the bilateral carotid siphons and V4 segments vertebral arteries bilaterally. Globes and orbital contents image normally. No extracranial soft tissue abnormalities. The paranasal sinuses, mastoid air cells, and tympanic cavities are normally aerated. No suspicious bony abnormalities. There are no acute fractures evident. Advanced degenerative changes right greater than left TM joints. CT/CT head/brain wo IV con IMPRESSION: No acute intracranial abnormality. No fracture evident. Electronically signed by: Domenic Aguilar MD 01/28/2025 09:19 AM EDT
--- NOTE | ~2025-01-28 | XR_ITS ---
EXAMINATION: XR THORACIC SPINE CLINICAL INFORMATION: T1 fx on CT c spine COMPARISON: None available. TECHNIQUE: 3 views of the thoracic spine were obtained. FINDINGS: Unable to evaluate the T1 vertebra. Multilevel small marginal osteophyte formation and multilevel endplate sclerosis with decreased intervertebral disc height. No gross volume loss of the vertebral bodies. Calcified plaque thoracic aorta. XR/XR thoracic spine 3V IMPRESSION: Multilevel spondylosis. Unable to evaluate T1 vertebra. Electronically signed by: Fritz Jaramillo MD 01/28/2025 10:45 AM EDT
--- NOTE | ~2025-01-28 | XR_ITS ---
EXAMINATION: XR TIBIA AND FIBULA, RIGHT CLINICAL INFORMATION: contusion mid huntley, fell OOB COMPARISON: Correlated to right knee x-ray dated June 17, 2022. TECHNIQUE: AP and lateral views of the right tibia and fibula were obtained. FINDINGS: No acute cortical disruption. Degenerative changes involving mostly the medial compartment of the knee. No subcutaneous emphysema. No metallic or radiopaque foreign body. Spur, plantar calcaneus. XR/XR tibia fibula RT 2V IMPRESSION: No acute fracture. Tricompartmental osteoarthrosis involving mostly the medial compartment right knee. Worsened since prior exam. Electronically signed by: Fritz Jaramillo MD 01/28/2025 11:01 AM EDT
[2025-01-28 06:32] LABS: MANUAL DIFF FLAG NO
[2025-01-28 06:37] LABS: Basophils Absolute Auto 0.1 X10*3/uL (0.0-0.2); Basophils Percent Auto 0.5 % (0-2); Eosinophils Absolute Auto 0.2 X10*3/uL (0.0-0.4); Eosinophils Percent Auto 1.9 % (0-4); Hematocrit 42.7 % (37.0-47.0); Hemoglobin 13.1 g/dl (12.0-16.0); Imm Gran Abs Auto 0.03 X10*3/uL (0.00-0.03); Imm Gran Pct Auto 0.3 % (0.0-0.4); Lymphocytes Absolute Auto 1.7 X10*3/uL (1.2-4.9); Lymphocytes Percent Auto 17.8 % (20-40); Mean Corpuscular HGB Conc 30.7 g/dl (31.0-35.0); Mean Corpuscular Hemoglobin 25.3 pg (27.0-33.0); Mean Corpuscular Volume 82.6 fL (80.0-98.0); Mean Platelet Volume 9.1 fL (9.4-12.3); Monocytes Absolute Auto 0.8 X10*3/uL (0.1-1.2); Neutrophils Absolute Auto 6.7 x10*3/uL (2.0-8.3); Neutrophils Percent Auto 71.5 % (45-73); Platelet Count 303 X10*3/uL (160-400); Red Blood Count 5.17 X10*6/uL (4.20-5.50); Red Cell Distribution Width 14.1 % (11.0-16.0); White Blood Count 9.3 X10*3/uL (4.8-10.8)
[2025-01-28] MEDS: 0.9 % Sodium Chloride 1,000 ML 999 ML IV (06:45)
[2025-01-28 06:52] LABS: Anion Gap 16 (12-20); Blood Urea Nitrogen 21 mg/dL (9-16); Calcium 9.8 mg/dL (8.4-10.2); Carbon Dioxide 36 mmol/L (22-29); Chloride 89 mmol/L (96-108); Creatinine Clr Calc Pharmacy 50.2; Estimated Glomerular Filt Rate 55; Glucose Random 116 mg/dL (60-115); Potassium 3.4 mmol/L (3.3-5.1); Sodium 138 mmol/L (135-145)
--- OUTSIDE RECORDS SUMMARY | 2025-01-28 07:39 | XMS_ITS ---
Author Organization [facility] Care Team Providers Care Supervisor Testing Name Role Phone Hal Luigi Unavailable Unavailable Allergies and adverse reactions Code CodeSystem Substance Reaction Severity StartDate Concern Status 8640 RXNORM predniSONE Unknown 07/26/2023 active 7984 RXNORM Penicillin Unknown 07/26/2023 active Care Team Name Role Address Phone Organization Dates Luigi Hong [facility] [address], [address], [place], [address], [place] (Office): : [facility] 07/26/2023 - 08/18/2023 Immunizations Immunization Status Vaccine Details Vaccine Code CodeSystem Date Notes Influenza cancelled Influenza, split virus, trivalent, injectable, contains preservative 141 CVX created date: 08/10/2023 consent date: 08/10/2023 Educated by Jerad on 08/10/2023 TB 2 Step Mantoux Skin Test completed tuberculin skin test; unspecified formulation lotNumber: [id number] expiry: 09/03/2026 Mfg: Turbasol Given 0.1 ml Left Forearm intradermally Step 1 of Multi-step with next step required 98 CVX created date: 08/06/2023 consent date: 08/05/2023 administer ed date: 08/06/2023 (COVID-19) Pfizer Original Primary Dose Vaccine 2 of 2 completed SARS-COV-2 (COVID-19) vaccine, mRNA, spike protein, LNP, preservative free, 30 mcg/0.3mL dose 208 CVX created date: 07/26/2023 administer ed date: 12/07/2020 (COVID-19) Pfizer Original Primary Dose Vaccine 1 of 2 completed SARS-COV-2 (COVID-19) vaccine, mRNA, spike protein, LNP, preservative free, 30 mcg/0.3mL dose 208 CVX created date: 07/26/2023 administer ed date: 11/16/2020 (COVID-19) Pfizer Original Booster Vaccine completed SARS-COV-2 (COVID-19) vaccine, mRNA, spike protein, LNP, preservative free, 30 mcg/0.3mL dose 208 CVX created date: 07/26/2023 administer ed date: 07/10/2021 (COVID-19) Pfizer Bivalent Vaccine completed SARS-COV-2 (COVID-19) vaccine, mRNA, spike protein, LNP, bivalent, preservative free, 30 mcg/0.3 mL dose, binh-sucrose formulation 300 CVX created date: 07/26/2023 administer ed date: 09/26/2022 (Pneumococcal) PCV13- Conjugate 13-valent Vaccine cancelled pneumococcal conjugate vaccine, 13 valent 133 CVX created date: 08/10/2023 consent date: 08/10/2023 Educated by Jerad on 08/10/2023 Mental Status Section Date Assessment Total Score Description 08/18/2023 BIMS 15 cognitively int act CAM 0 No delirium ind icated PHQ-9 00 07/31/2023 BIMS 15 cognitively int act CAM 0 No delirium ind icated PHQ-9 00 Problems Problem # Description Date of onset Resolved Date Code CodeSystem Concern Status 1 ACUTE KIDNEY FAILURE, UNSPECIFIED 07/26/[address] active 2 ACUTE ON CHRONIC DIASTOLIC (CONGESTIVE) HEART FAILURE 07/26/[address] active 3 ANEMIA, UNSPECIFIED 07/26/[address] active 4 CHRONIC KIDNEY DISEASE, STAGE 3A 07/26/[address] active 5 CHRONIC OBSTRUCTIVE PULMONARY DISEASE, UNSPECIFIED 07/26/[address] active 6 CHRONIC RESPIRATORY FAILURE WITH HYPOXIA 07/26/[address] active 7 DELIRIUM DUE TO KNOWN PHYSIOLOGICAL CONDITION 07/26/[address] active 8 DEPENDENCE ON SUPPLEMENTAL OXYGEN 07/26/[address] active 9 DIFFICULTY IN WALKING, NOT ELSEWHERE CLASSIFIED 07/26/[address] active 10 ELEVATED WHITE BLOOD CELL COUNT, UNSPECIFIED 07/26/[address] active 11 HYPERTENSIVE HEART AND CHRONIC KIDNEY DISEASE WITH HEART FAILURE AND STAGE 1 THROUGH STAGE 4 CHRONIC KIDNEY DISEASE, OR UNSPECIFIED CHRONIC KIDNEY DISEASE 07/26/[address] active 12 HYPOKALEMIA 07/26/[address] active 13 LOBAR PNEUMONIA, UNSPECIFIED ORGANISM 07/26/[address] active 14 MALIGNANT (PRIMARY) NEOPLASM, UNSPECIFIED 07/26/[address] active 15 MORBID (SEVERE) OBESITY DUE TO EXCESS CALORIES 07/26/[address] active 16 MUSCLE WASTING AND ATROPHY, NOT ELSEWHERE CLASSIFIED, MULTIPLE SITES 07/26/[address] active 17 OTHER LACK OF COORDINATION 07/26/[address] active 18 OTHER SPECIFIED ABNORMAL FINDINGS OF BLOOD CHEMISTRY 07/26/[address] active 19 PAROXYSMAL ATRIAL FIBRILLATION 07/26/[address] active 20 PERIPHERAL VASCULAR DISEASE, UNSPECIFIED 07/26/[address] active 21 POLYNEUROPATHY, UNSPECIFIED 07/26/[address] active 22 SYNCOPE AND COLLAPSE 07/26/[address] active 23 TYPE 2 DIABETES MELLITUS WITH DIABETIC CHRONIC KIDNEY DISEASE 07/26/[address] active 24 UNSPECIFIED FALL, SUBSEQUENT ENCOUNTER 07/26/[address] active 25 VENTRICULAR TACHYCARDIA, UNSPECIFIED 07/26/[address] active Reason for Referral No Reasons for Referral Entered Social History Social History Observation Description Start Date End Date Code Code System Current Smoking Status Tobacco smoking consumption unknown 430793136 SNOMED CT Sex Assigned At Female 1950 75311-6 [facility] Gender Identity Vital Signs Code Code System Vitals Name Values and Units Timing Information 9279-1 [facility] Respiratory Rate Value=18.0 Units=/m in 08/18/2023 8462-4 [facility] Blood Pressure-Diastolic Value=74 Un its=mmHg 08/18/2023 8480-6 [facility] Blood Pressure-Systolic Xyvkt=679 Un its=mmHg 08/18/2023 8310-5 [facility] Body Temperature Value=97.3 Units=?? F 08/18/2023 8867-4 [facility] Heart rate Value=82.0 Units=/min 21012-5 [facility] O2 % BldC Oximetry Value=91.0 Units= % 08/18/2023 80233-9 [facility] Pain Level Value=0.0 08/18/2023 2339-0 [facility] Blood Sugar Hasmg=862.0 Units=mg/dL 08/18/2023 11028-3 [facility] Weight Xudsc=617.6 Units=Lbs 08/2023 8302-2 [facility] Height Value=64.0 Units=Inches 07/26/2023
--- NOTE | 2025-01-28 07:58 | ED.GENADULT ---
HPI - General Adult General Chief complaint: Fall Stated complaint: Fall, refused c-collar no pain, - thinners, 5L O2 Time Seen by Provider: 01/28/25 07:57 Source: patient, EMS, RN notes reviewed and old records reviewed Mode of arrival: EMS Limitations: physical limitation History of Present Illness ED Provider: Prakash HPI narrative: Patient is a 74-year-old female with history of O2 dependent COPD, HTN, left upper lobe lung cancer status post radiotherapy followed by Dr. Stapleton at [facility], reports has been bed-bound for the past year presenting to the emergency department with complaint of upper back and right lower leg pain after a fall out of bed this morning. 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 States I feel ass over teakettle. Reports positive head strike, now has mild pain to top of head. She is not anticoagulated. Denies loss of consciousness. Denies visual changes. Complains of right lower leg pain. MD complaint: back and leg pain Related Data Home Medications ?Medication ?Instructions ?Recorded ?Confirmed ascorbic acid (vitamin C) 500 mg 500 mg PO DAILY@0800 08/18/23 09/16/23 tablet ondansetron HCl 4 mg tablet 8 mg PO DAILY PRN Nausea 08/18/23 09/16/23 polyethylene glycol 3350 17 17 g PO Q OTHER DAY@0800 08/18/23 09/16/23 gram/dose oral powder thiamine HCl (vitamin B1) 100 mg 100 mg PO DAILY@0800 08/18/23 09/16/23 tablet albuterol sulfate 2.5 mg/3 mL 2.5 mg inhalation Q4H PRN 09/16/23 09/16/23 (0.083 %) solution for nebulization Shortness Of Breath Or Wheezing ferrous sulfate 220 mg (44 mg 220 mg PO DAILY@0800 09/16/23 09/16/23 iron)/5 mL oral solution Previous Rx's ?Medication ?Instructions ?Recorded omeprazole 20 mg capsule,delayed 20 mg PO DAILY@0630 #30 caps 08/25/23 release metronidazole 500 mg tablet 500 mg PO BID #8 tabs 09/18/23 potassium chloride 20 mEq oral 20 meq PO BID #30 ea 09/18/23 packet digoxin 125 mcg (0.125 mg) tablet 0.125 mg PO DAILY@0800 #90 tabs 11/15/24 gabapentin 300 mg capsule 600 mg (2 x 300 mg) PO QID #720 11/15/24 caps cefuroxime axetil 500 mg tablet 500 mg PO BID 7 days #14 tabs 12/18/24 silver sulfadiazine 1 % topical 1 appl topical DAILY #25 grams 12/27/24 cream (Silvadene) bumetanide 2 mg tablet 4 mg (2 x 2 mg) PO DAILY@0800 #180 01/03/25 tabs diltiazem HCl 120 mg 120 mg PO DAILY@0800 #90 caps 01/03/25 capsule,extended release 24 hr (Cardizem CD) tramadol 50 mg tablet 50 mg PO QID Pain, Moderate #120 01/20/25 tabs Allergies Allergy/AdvReac Type Severity Reaction Status Date / Time Penicillin Allergy Unknown rash Uncoded 01/28/25 06:08 Review of Systems Review of Systems: As per HPI. Yes all other systems are reviewed and are negative Constitutional: Constitutional: Reports as per HPI PMFSH Past Medical History Medical History Pneumonia Morbid obesity Atrial fibrillation with rapid ventricular response Constipation Lung cancer Pneumonia COPD with acute exacerbation COPD (chronic obstructive pulmonary disease) Carpal tunnel syndrome, left Nerve pain High blood pressure Surgical History H/O: hysterectomy Social History Social History Household Members: Family Housing: House Housing Other:: [facility] [place] Do you presently have visiting nurse or other home services: Yes Alcohol intake: never Patient Tobacco Use Status: Former Tobacco user Tobacco use type: Cigarette Cigarette Packs Per Day: 1 Cigarettes Per Day: 20.0 Smoked in Last 30 Days: No e-Cigarette/Vaping Use: Never Used Second Hand Smoke Exposure: No Use of substances other than those prescribed or required for medical reasons: No Advance Directives: Yes Advance Directives on File: Yes Advance Directives Date on File: 03/23/23 Do you have a plan to hurt others: No Plan service: No Current occupational status: retired Current occupation: left handed Physical Exam ED Vital Signs: Vital Signs - 24 hr 01/28/25 06:05 01/28/25 06:48 01/28/25 08:39 Temperature 97.7 F Pulse Rate 75 68 67 Respiratory Rate 28 H 18 Blood Pressure 85/64 L 94/61 121/65 Pulse Oximetry 94 Oxygen Delivery Method Nasal Cannula Oxygen Flow Rate 01/28/25 08:39 01/28/25 10:35 01/28/25 11:39 Temperature 97.1 F Pulse Rate 84 81 75 Respiratory Rate 16 20 Blood Pressure 97/60 103/56 L 104/54 L Pulse Oximetry 91 L 97 Oxygen Delivery Method Nasal Cannula Nasal Cannula Oxygen Flow Rate 2 2 BMI result Body Mass Index 33.5 Vital signs have been reviewed and appear to be correct. Blood pressure low. Heart rate normal. Respiratory rate normal. Temperature normal. Oxygen saturation normal. Const General: cooperative and no acute distress Orientation/consciousness: oriented to person, oriented to place, oriented to time and patient oriented x3 Limitations: physical limitations (patient reports bedbound x 1 year, only able to stand with assist of 2) [facility] Head: Yes normocephalic and Yes atraumatic Ears: external ears normal General nose exam: Normal external nose present Face and sinus: Yes face symmetric Mouth: oropharynx normal and moist mucous membranes Throat: Yes uvula midline Eyes Pupils: Equal, round and reactive pupils present Neck Neck: Yes normal visual inspection and Yes supple Chest Chest palpation & inspection: normal inspection of the chest and normal palpation of entire chest wall Resp Effort & Inspection: normal respiratory effort and able to speak in complete sentences Auscultation: clear to auscultation bilaterally Cardio Rate: regular rate Rhythm: regular rhythm Heart sounds: S1 normal heart sound present and S2 normal heart sound present GI Inspection: Yes normal to inspection and No abdominal wall ecchymosis Palpation (GI): Soft to palpation and nontender Auscultation: normoactive bowel sounds General: Yes no CVA tenderness Back/Spine/Pelvis Back: no CVA tenderness Cervical Spine: normal cervical lordosis, cervical ROM normal, No Cervical spine tenderness and No step off deformity Thoracic/Lumbar Spine: thoracic and lumbar spine normal to inspection, pain with thoraco-lumbar ROM, thoracic spinal tenderness at T1 and at T2 and No lumbar spinal tenderness Pelvis: no pain with anterior-posterior compression and no pain with lateral compression Skin General skin exam: elasticity normal and turgor normal Neuro General: oriented to person, oriented to place, oriented to time, patient oriented x3, tone normal, moves all extremities, no focal motor deficits, CN's II-XI intact bilaterally and deep tendon reflexes 2+ bilaterally Cranial nerves: Yes Equal, round and reactive pupils present Cognition (Neuro): normal cognition Motor exam (neuro): 5/5 motor strength present throughout, Normal motor muscle tone present throughout and Motor abnormalities not present Extrem General: Yes full ROM, Yes no pedal edema and Yes no calf tenderness Right lower extremity: lower leg Details: tenderness Location: of the midshaft tibia and ecchymosis mid lower leg anterior Details: single Psych Mental Status: mental status grossly normal Affect: normal affect Thought process: Normal thought process present Medications Administered Discontinued Medications Generic Name Dose Route Start Last Admin Trade Name Freq PRN Reason Stop Dose Admin Sodium Chloride 1,000 mls @ 999 mls/hr 01/28/25 06:45 01/28/25 06:45 Ns IV 01/28/25 07:45 999 mls/hr .Q1H1M LE Administration Sodium Chloride 250 mls @ 999 mls/hr 01/28/25 10:00 01/28/25 10:51 Ns IV 01/28/25 10:15 Infused .Q16M LE Infusion Tramadol HCl 50 mg 01/28/25 10:38 01/28/25 10:48 Tramadol Hcl 50 Mg Tablet PO 01/28/25 10:39 50 mg ONCE ONE Administration Medical Decision Making Medical Decision Making MDM Narrative: Patient is a 74-year-old female with history of O2 dependent COPD, HTN, left upper lobe lung cancer status post radiotherapy followed by Dr. Stapleton at [facility], reports has been bed-bound for the past year presenting to the emergency department with complaint of upper back and right lower leg pain after a fall out of bed this morning. On exam patient is awake, A+Ox3, hypotensive, VS otherwise WNL, afebrile, normal neurological exam without focal deficits, physical exam findings as above. Given reported symptoms and physical exam findings, initial differential includes but is not limited to ICH, skull or cervical vertebral fracture subluxation, orthostatic intolerance. Labs grossly within normal limits/at baseline for patient. Patient noted to have orthostatic intolerance, became hypotensive with sitting up. Patient has history of labile blood pressures. She reports that she is bed-bound at home and does not ambulate. Feel this is unrelated to her fall as she has clear explanation of how she fell this morning. CT head notable for no evidence of ICH or skull fracture. CT C-spine notable for no evidence of cervical vertebral fracture subluxation, however, T1 fracture noted. T-spine x-ray notable for multilevel spondylosis, unable to evaluate T1 vertebra, no additional thoracic vertebral fractures or subluxation. No evidence of tibia fracture on x-ray. My interpretation is in agreement with the radiologist's interpretation. Patient medicated with tramadol for pain. Feel she is stable for discharge home, advised her to use her prescribed Tramadol as prescribed for pain, can add Tylenol as needed. Follow up with PCP. Can apply ice intermittently as needed. Return precautions discussed. Patient verbalized understanding of and agreement with plan. Differential Diagnosis Differential Diagnoses: The differential diagnosis associated with the presentation includes as per [facility] Admission/Observation Consideration of admission/observation: Escalation of care including admission/observation considered Patient would have been admitted to the hospital had their work up had any findings where hospital admission was appropriate and their clinical presentation warranted hospital admission. Lab Data [facility] Lab Attestation statement: I reviewed the patient's lab results. as per [facility] 01/28/25 06:28 01/28/25 06:28 Labs: Lab Results 01/28/25 Range/Units 06:28 WBC 9.3 (4.8-10.8) X10*3/uL RBC 5.17 (4.20-5.50) X10*6/uL Hgb 13.1 (12.0-16.0) g/dl Hct 42.7 (37.0-47.0) % MCV 82.6 (80.0-98.0) fL MCH 25.3 L (27.0-33.0) pg MCHC 30.7 L (31.0-35.0) g/dl RDW 14.1 (11.0-16.0) % Plt Count 303 (160-400) X10*3/uL MPV 9.1 L (9.4-12.3) fL Immature Gran % (Auto) 0.3 (0.0-0.4) % Neut % (Auto) 71.5 (45-73) % Lymph % (Auto) 17.8 L (20-40) % Emery % (Auto) 8.0 (2-11) % Eos % (Auto) 1.9 (0-4) % Baso % (Auto) 0.5 (0-2) % Lymph # (Auto) 1.7 (1.2-4.9) X10*3/uL Emery # (Auto) 0.8 (0.1-1.2) X10*3/uL Eos # (Auto) 0.2 (0.0-0.4) X10*3/uL Baso # (Auto) 0.1 (0.0-0.2) X10*3/uL Abs Immat Gran (auto) 0.03 (0.00-0.03) X10*3/uL Absolute Neuts (auto) 6.7 (2.0-8.3) x10*3/uL Absolute Nucleated RBC 0.000 (0.0-0.012) X10*3/uL Nucleated RBC % (auto) 0.0 (0.0-0.2) /100WBC Sodium 138 (135-145) mmol/L Potassium 3.4 (3.3-5.1) mmol/L Chloride 89 L (96-108) mmol/L Carbon Dioxide 36 H (22-29) mmol/L Anion Gap 16 (12-20) BUN 21 H (9-16) mg/dL Creatinine 0.99 (0.5-1.4) mg/dL Estim Creat Clear Calc 50.2 Estimated GFR 55 Random Glucose 116 H (60-115) mg/dL Calcium 9.8 (8.4-10.2) mg/dL Independent Interpretation I performed an independent interpretation of an: Plain X-Ray and CT Scan Interpretation: CT head notable for no evidence of ICH or skull fracture. CT C-spine notable for no evidence of cervical vertebral fracture subluxation, however, T1 fracture noted. T-spine x-ray notable for multilevel spondylosis, unable to evaluate T1 vertebra, no additional thoracic vertebral fractures or subluxation. No evidence of right tibia fracture on x-ray. Radiology Impression Discussion of test interpretation with radiology: I have reviewed the radiologist's reading. Radiologist Impression: CT HEAD WITHOUT CONTRAST CLINICAL INFORMATION: Fall with head strike. COMPARISON: None available. TECHNIQUE: Contiguous axial imaging was performed from the skull base to vertex without intravenous administration of contrast. This CT examination was performed using dose optimization techniques as appropriate, variously including the following: *Automated exposure control *Adjustment of mA and/or kV according to patient size (this includes techniques or standardized protocols for targeted exams where dose is matched to indication/reason for exam; i.e. extremities or head) *Use of iterative reconstruction technique FINDINGS: There is no evidence of intracranial hemorrhage or extra-axial fluid collection. There is no mass effect, or edema. No CT evidence of acute territorial infarct. Ventricles, sulci, and cisterns are mildly diffusely prominent, in keeping with age-related cerebral and cerebellar volume loss. Prominent sulci overlying the frontal lobes. No hydrocephalus. No midline shift. Negative hyperdense MCA sign. Negative insular ribbon sign. Patchy periventricular and deep white matter hypoattenuation is consistent with moderate small vessel ischemic changes. 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 Partial empty sella. Atheromatous calcification of the bilateral carotid siphons and V4 segments vertebral arteries bilaterally. Globes and orbital contents image normally. No extracranial soft tissue abnormalities. The paranasal sinuses, mastoid air cells, and tympanic cavities are normally aerated. No suspicious bony abnormalities. There are no acute fractures evident. Advanced degenerative changes right greater than left TM joints. CT/CT head/brain wo IV con IMPRESSION: No acute intracranial abnormality. No fracture evident. CT CERVICAL SPINE WITHOUT CONTRAST CLINICAL INFORMATION: Status post fall. COMPARISON: None available. TECHNIQUE: Contiguous axial images through the cervical spine using 3 mm collimation with bone and soft tissue algorithm. Sagittal and coronal reformatted images and bone algorithm. DLP: 401.[address] examination was performed using dose optimization techniques as appropriate, variously including the following: *Automated exposure control *Adjustment of mA and/or kV according to patient size (this includes techniques or standardized protocols for targeted exams where dose is matched to indication/reason for exam; i.e. extremities or head) *Use of iterative reconstruction technique FINDINGS: Limited by patient's motion artifact. Craniocervical junction is intact with normal alignment between the occipital condyles and the lateral masses of C1. Multilevel facet joint hypertrophy more pronounced at C3-4 and C4-5 levels. C1 is intact. C2 is intact. C3 is intact. Facet joint hypertrophy. C4 is intact. Facet joint hypertrophy. C5 is intact. Facet joint hypertrophy. C6 is intact. Facet joint hypertrophy. C7 is intact. Cortical irregularity at the anterior superior endplate of T1. No prevertebral compartment hematoma. Calcified plaques in both carotid bulbs and proximal ICAs. Bilateral apical lung scarring more conspicuous on the left lung apex. Partially calcified nodules in the right thyroid lobe. Tympanic cavities and mastoid cells are aerated. CT/CT cervical spine wo IV con IMPRESSION: Concerning acute nondisplaced fracture anterior superior endplate T1. Multilevel cervical spondylosis. Acute on chronic airspace disease, left lung apex. Fleischner guidelines were followed. EXAMINATION: XR THORACIC SPINE CLINICAL INFORMATION: T1 fx on CT c spine COMPARISON: None available. TECHNIQUE: 3 views of the thoracic spine were obtained. FINDINGS: Unable to evaluate the T1 vertebra. Multilevel small marginal osteophyte formation and multilevel endplate sclerosis with decreased intervertebral disc height. No gross volume loss of the vertebral bodies. Calcified plaque thoracic aorta. XR/XR thoracic spine 3V IMPRESSION: Multilevel spondylosis. Unable to evaluate T1 vertebra. External Record Review External record reviewed: Inpatient record, Office record and Outpatient record Discharge Plan Discharge Clinical Impression: Closed T1 fracture, Contusion of right tibia Patient Disposition: Home, Self-Care Additional Instructions: You have been evaluated in the emergency department today for injuries after a fall. Your CT scans did not show signs of bleeding or fractures in your head or cervical spine but did show a fracture of your first thoracic vertebrae. We recommend you take your prescribed Tramadol as prescribed for pain. If needed, you can add Tylenol 650mg every 6 hours. Please schedule an appointment with for follow-up with your primary care provider as soon as possible. Return to the emergency department if you experience worsening or uncontrolled pain, vision changes, recurrent vomiting, difficulty with normal activities, abnormal behavior, difficulty walking, numbness, weakness, or any other concerning symptoms. Prescriptions: No Action gabapentin 300 mg capsule 600 mg PO QID Qty: 720 1RF Rx Instructions: AT 0800,1200,1800,2100 digoxin 125 mcg (0.125 mg) tablet 0.125 mg PO DAILY@0800 Qty: 90 3RF cefuroxime axetil 500 mg tablet 500 mg PO BID 7 Days Qty: 14 0RF silver sulfadiazine [Silvadene] 1 % cream 1 appl topical DAILY Qty: 25 0RF Rx Instructions: apply a 1.5 mm thickness bumetanide 2 mg tablet 4 mg PO DAILY@0800 Qty: 180 3RF diltiazem HCl [Cardizem CD] 120 mg capsule,extended release 24hr 120 mg PO DAILY@0800 Qty: 90 3RF Protocol: Hold for SBP/HR < HOLD for SBP < : 90 HOLD for HR < : 60 tramadol 50 mg tablet 50 mg PO QID Qty: 120 0RF ascorbic acid (vitamin C) 500 mg Tablet 500 mg PO DAILY@0800 polyethylene glycol 3350 17 gram/dose Powder 17 g PO Q OTHER DAY@0800 thiamine HCl (vitamin B1) 100 mg Tablet 100 mg PO DAILY@0800 ondansetron HCl 4 mg tablet 8 mg PO DAILY PRN (Reason: Nausea) omeprazole 20 mg Capsule,Delayed Release(Dr/Ec) 20 mg PO DAILY@0630 Qty: 30 0RF albuterol sulfate 2.5 mg /3 mL (0.083 %) Solution For Nebulization 2.5 mg INHALATION Q4H PRN (Reason: Shortness Of Breath Or Wheezing) ferrous sulfate 220 mg (44 mg iron)/5 mL solution 220 mg PO DAILY@0800 metronidazole 500 mg tablet 500 mg PO BID Qty: 8 0RF potassium chloride 20 mEq packet 20 meq PO BID Qty: 30 0RF Print Language: Monegasque
--- NOTE | 2025-01-28 08:40 | MHC.EDTECH ---
This pct attempted ortho static vitals on this patient but this patient was only able to 2 of the 3 sets of ortho static vitals laying and sitting when patient tried standing this patient was very shaky and unsteady, RN Aware
--- NOTE | 2025-01-28 08:54 | PC.NURSE ---
Pt returned from T. A&O X4 NAD No complaints. IVF positional- Pat reminded to keep arm staright. VSS
[2025-01-28] MEDS: 0.9 % Sodium Chloride 250 ML 999 ML IV (10:36)
[2025-01-28] MEDS: traMADoL HCL 50 MG TABLET PO (10:48)
== END 2025-01-28 16:59 | disposition home or self-care (01) ==
PROVIDERS: Emergency Provider Emergency Medicine; PCP Internal Medicine
DX: S22.019A Unspecified fracture of first thoracic vertebra, initial encounter for closed fracture (principal); I48.91 Unspecified atrial fibrillation; R51.9 Headache, unspecified; M54.2 Cervicalgia; J44.9 Chronic obstructive pulmonary disease, unspecified; I10 Essential (primary) hypertension; M79.604 Pain in right leg; W06.XXXA Fall from bed, initial encounter; Y93.9 Activity, unspecified; Y92.9 Unspecified place or not applicable; Y99.8 Other external cause status; Z99.81 Dependence on supplemental oxygen; Z79.899 Other long term (current) drug therapy; Z87.891 Personal history of nicotine dependence
CPT/HCPCS: 36415; 70450; 72072; 72125; 73590; 80048; 85025; 93005; 96360; 96361; 99285

== ENCOUNTER → 2025-01-28 06:27 | Outpatient (BNV) | payer MEDICARE, OTHER, SELFPAY | PROVIDERS: Emergency Provider Emergency Medicine; PCP Internal Medicine; Visit Provider Internal Medicine Cardiovascular Disease | DX: I48.91 Unspecified atrial fibrillation (principal) | CPT/HCPCS: 93010 ==

== ENCOUNTER → 2025-01-28 08:01 | Outpatient (BNV) | payer MEDICARE, OTHER, SELFPAY | PROVIDERS: Emergency Provider Emergency Medicine; PCP Internal Medicine; Visit Provider Radiology Diagnostic Radiology | DX: M47.812 Spondylosis without myelopathy or radiculopathy, cervical region (principal); S09.90XA Unspecified injury of head, initial encounter; W19.XXXA Unspecified fall, initial encounter; M47.814 Spondylosis without myelopathy or radiculopathy, thoracic region; M17.11 Unilateral primary osteoarthritis, right knee; J98.4 Other disorders of lung | CPT/HCPCS: 70450 ==

== ENCOUNTER 2025-02-21 13:52 | Outpatient (AMB) | payer MEDICARE, OTHER, SELFPAY ==
--- OUTSIDE RECORDS SUMMARY | 2025-02-21 13:55 | XMS_ITS | Clinical Summary ---
Author Organization [facility] Facility Address [address] [place] [id number] Care Team Providers Care Metal Plater Name Role Phone Unavailable Primary Care Provider Unavailabl e Social History Tobacco Use Types Packs/Day Years Used Date Smoking Tobacco: Never Assessed Comments Unknown Sex and Gender Information Value Date Recorded Sex Assigned at Not on file Legal Sex Female 10:08 AM EDT Gender Identity Not on file Sexual Orientation Not on file Plan of Treatment Health Maintenance Due Date Last Done Comments Pneumococcal Vaccine: 50+ Ye ars (1 of 2 - PCV) 1969 Influenza Vaccine (Season Ended) 2025 Hepatitis B Vaccine Aged Out No longe r eligible based on patient's age to complete this topic Insurance Medicare [facility]
--- NOTE | 2025-02-21 14:13 | MHC.PC.OV ---
Vital Signs 02/21/25 14:21 BP 116/68 Blood Pressure Location Lt brachial Position Sitting Pulse 74 Pulse Source Pulse Oximeter Temp 97.5 F Temp Source Axillary Pulse Oximetry (%) 93 Oxygen Delivery Method Room Air Intake Visit Reasons: Routine Log Roller Required: No Accompanied by: Daughter Allergies prednisone Allergy (Mild, Verified 02/21/25 14:25) Unknown Penicillin Allergy (Severe, Uncoded 02/21/25 14:25) rash Tobacco use date assessed: 02/21/25 Fall risk assessment: No Falls in past year Last assessed Fall Risk: 02/21/25 Dental Screening Dental Screen Date: 02/21/25 Did you have a dental visit in the last 12 months?: No Did you have a dental problem in the last 6 months where you did not have access to dental care?: No HPI HPI Comments History of Present Illness Details Nicole Goldstein is a 74 years old woman with past medical history significant for hypertension, afib on AC, obesity, COPD on home oxygen, AMY on CPAP presenting for follow up Evaluated in the ER at the end of January after fall. CT head notable for no evidence of ICH or skull fracture. CT C-spine notable for no evidence of cervical vertebral fracture subluxation, however, T1 fracture noted. T-spine x-ray notable for multilevel spondylosis, unable to evaluate T1 vertebra, no additional thoracic vertebral fractures or subluxation. No evidence of right tibia fracture on x-ray. CV: On bumex, diltiazem, digoxin. Blood pressure is well controlled COPD on home o2. History of ROJAS lung carcinoma-s/p radiation therapy, Dr Zamora. MSK: OA, DDD. Recent T1 fracture as noted. Chronic tramadol. Has not bee strong enough for pain from recent fracture. Declines referral to spine doctor/pain management at present. It is getting better with time TSH was suppressed with last testing. Patient c/o intention tremor ROS see HPI Essential tremor PHYSICAL EXAM: GENERAL: Alert and oriented x 3. NAD EYES: EOMI. Anicteric. HENT: Moist mucous membranes. No scleral icterus. No cervical lymphadenopathy. LUNGS: Clear to auscultation bilaterally. CARDIOVASCULAR: Regular rate and rhythm. No murmur. No JVD. ABDOMEN: Soft, non-tender +bs EXTREMITIES: No edema. Non-tender. SKIN: No rashes or lesions. Warm. NEUROLOGIC: No focal neurological deficits. CN II-XII grossly intact PSYCHIATRIC: Cooperative. Appropriate mood and affect [facility] Medical History Pneumonia Morbid obesity Atrial fibrillation with rapid ventricular response Constipation Lung cancer Pneumonia COPD with acute exacerbation COPD (chronic obstructive pulmonary disease) Carpal tunnel syndrome, left Nerve pain High blood pressure Surgical History H/O: hysterectomy Family History Mother No problems noted. Father No problems noted. Social History Household Members: Family Housing: House Housing Other:: [facility] Do you presently have visiting nurse or other home services: Yes Alcohol intake: never Patient Tobacco Use Status: Former Tobacco user Tobacco use type: Cigarette Cigarette Packs Per Day: 1 Cigarettes Per Day: 20.0 e-Cigarette/Vaping Use: Former Use Second Hand Smoke Exposure: No Advance Directives Date on File: 03/23/23 service: No Current occupational status: retired Current occupation: left handed Cognitive needs: Yes (wheelchair) Hearing needs: No Vision needs: No Questionnaire PHQ-9 Over the last 2 weeks, how often have you been bothered by any of the following problems? 1. Little interest or pleasure in doing things: not at all 2. Feeling down, depressed, or hopeless: not at all 3. Trouble falling or staying asleep, or sleeping too much: not at all 4. Feeling tired or having little energy: not at all 5. Poor appetite or overeating: not at all 6. Feeling bad about yourself - or that you are a failure or have let yourself or your family down: not at all 7. Trouble concentrating on things, such as reading the newspaper or watching television: not at all 8. Moving or speaking so slowly that other people could have noticed. Or the opposite - being so fidgety or restless that you have been moving around a lot more than usual: not at all 9. Thoughts that you would be better off or of hurting yourself in some way: not at all Total score: 0 Depression Screening Interpretation: Negative Depression Screening Done: Yes 85408 - PHQ-9 Billing: Yes Source: Developed by Drs. Dillon Espino, Carole Man, Dilshad Shah and colleagues, with an educational maritza from [employer]. Thrive Questionnaire Date Thrive assessed: 02/21/25 I am a: Patient Within the past 12 months, did the food you bought not last and you didn't have the money to get more?: Never true Within the past 12 months, did you worry whether your food would run out before you got money to buy more?: Never true Do you have trouble paying for medicines?: No Do you have trouble getting transportation to medical appointments?: No Do you have trouble paying your heating and electricity bill?: No Do you have trouble taking care of your child, family member or friend?: No Do you have trouble with day-to-day activities such as bathing, preparing meals, shopping, managing finances, etc.?: No Are you currently unemployed and looking for a job?: No Are you interested in more education?: No THRIVE Score: 0 AUDIT C Alcohol Use Questionnaire (AUDIT-C) 1. How often do you have a drink containing alcohol?: Never 3. How often do you have six or more drinks on one occasion?: Never Total Score: 0 CARLOS-7 AMB Questionnaire CARLOS-7 Date CARLOS - 7 assessed: 02/21/25 Feeling nervous, anxious, or on edge: 0 = Not at all Not being able to stop or control worryin = Not at all Worrying too much about different things: 0 = Not at all Trouble relaxin = Not at all Being so restless that it is hard to sit still: 0 = Not at all Becoming easily annoyed or irritable: 0 = Not at all Feeling afraid as if something awful might happen: 0 = Not at all Total CARLOS-7 score (0-4 normal; 5-9 mild; 10-14 moderate; 15-21 severe): 0 Source: Developed by Drs. Dillon Espino, Dilshad Miller and colleagues, with an educational maritza from [employer]. Physical exam (Primary Care) Vital Signs: Last Vital Signs Temp 97.5 F 02/21/25 14:21 Pulse 74 06/20/25 14:21 BP 116/68 02/21/25 14:21 Pulse Ox 93 02/21/25 14:21 Oxygen Delivery Method Room Air 02/21/25 14:21 Tobacco/Smoking Status: Tobacco use Status Tobacco use date assessed 02/21/25 02/21/25 14:20 Patient Tobacco Use Status Former Tobacco user 02/21/25 14:14 Tobacco use type Cigarette 02/21/25 14:14 e-Cigarette/Vaping Use Former Use 02/21/25 14:33 PHQ-9: PHQ-9 Score PHQ-9: Total score 0 02/21/25 14:33 Depression Screening Interpretation: Negative Thrive Assessment: Date of Thrive Assessment Date Thrive assessed 02/21/25 02/21/25 14:33 Coding Level of Care Code New Pt Level 4 (24526) Complex EM visit Add On G2211 Diagnoses Closed fracture of first thoracic vertebra with routine healing, unspecified fracture morphology, subsequent encounter S22.019D Encounter type: subsequent encounter Fracture type: closed Fracture morphology: unspecified fracture morphology Fracture healing: with routine healing Hyperthyroidism E05.90 Normocytic anemia D64.9 Compression fracture of T1 vertebra with routine healing, subsequent encounter S22.010D Encounter type: subsequent encounter Thoracic vertebra fracture level: T1 Fracture healing: with routine healing Chronic obstructive pulmonary disease, unspecified COPD type J44.9 COPD type: unspecified COPD Persistent atrial fibrillation I48.19 Additional Codes PHQ-9 - 10627 - PHQ-9 Billing: Yes ([id number]) Assessment & Plan Assessment & Plan (1) T1 vertebral fracture: Code(s): S22.019A - Unspecified fracture of first thoracic vertebra, initial encounter for closed fracture Category: Medical Qualifiers: Encounter type: subsequent encounter Fracture type: closed Fracture morphology: unspecified fracture morphology Fracture healing: with routine healing Qualified Code(s): S22.019D - Unspecified fracture of first thoracic vertebra, subsequent encounter for fracture with routine healing (2) Hyperthyroidism: Code(s): E05.90 - Thyrotoxicosis, unspecified without thyrotoxic crisis or storm Category: Medical (3) Normocytic anemia: Code(s): D64.9 - Anemia, unspecified Category: Medical (4) Thoracic compression fracture: Code(s): S22.000A - Wedge compression fracture of unspecified thoracic vertebra, initial encounter for closed fracture Category: Medical Qualifiers: Encounter type: subsequent encounter Thoracic vertebra fracture level: T1 Fracture healing: with routine healing Qualified Code(s): S22.010D - Wedge compression fracture of first thoracic vertebra, subsequent encounter for fracture with routine healing (5) COPD (chronic obstructive pulmonary disease): Code(s): J44.9 - Chronic obstructive pulmonary disease, unspecified Category: Medical Qualifiers: COPD type: unspecified COPD Qualified Code(s): J44.9 - Chronic obstructive pulmonary disease, unspecified (6) Persistent atrial fibrillation: Code(s): I48.19 - Other persistent atrial fibrillation Category: Medical Plan 74 yo to establish care past medical,surgical,social reviewed Recent ER visit reviewed Can continue tramadol. For 7-10 pain can use oxycodone, atleast short term tremor-trial primidone. Recheck TSH Orders: Orders TSH reflex Free T4 02/21/25 E05.90 - Thyrotoxicosis, unspecified without thyrotoxic crisis or storm Hemoglobin A1c 02/21/25 R73.09 - Other abnormal glucose Medications: New oxycodone Partial Fill upon patient request. 5 mg PO Q6H PRN 120 tabs 0RF pain primidone 50 mg PO BEDTIME 90 tabs 3RF Changed From tramadol 50 mg PO QID 120 tabs 0RF Pain, Moderate To tramadol 50 mg PO QID PRN 120 tabs 0RF Pain 1-6 Refilled tramadol 50 mg PO QID 120 tabs 0RF Pain, Moderate
[2025-02-21 14:21] VITALS: BP 116/68; PULSE 74; TEMP 36.4; O2SAT 93
== END 2025-02-21 14:57 | disposition home or self-care (01) ==
LOC: HO.HMCHD 13:54
PROVIDERS: PCP Internal Medicine; Visit Provider Internal Medicine
DX: S22.019D Unspecified fracture of first thoracic vertebra, subsequent encounter for fracture with routine healing (principal); E05.90 Thyrotoxicosis, unspecified without thyrotoxic crisis or storm; D64.9 Anemia, unspecified; S22.010D Wedge compression fracture of first thoracic vertebra, subsequent encounter for fracture with routine healing; J44.9 Chronic obstructive pulmonary disease, unspecified; I48.19 Other persistent atrial fibrillation

== ENCOUNTER → 2025-02-21 13:52 | Outpatient (BNVA) | payer MEDICARE, OTHER, SELFPAY | PROVIDERS: PCP Internal Medicine; Visit Provider Internal Medicine | DX: I10 Essential (primary) hypertension (principal); E05.90 Thyrotoxicosis, unspecified without thyrotoxic crisis or storm; D64.9 Anemia, unspecified; S22.010D Wedge compression fracture of first thoracic vertebra, subsequent encounter for fracture with routine healing; I48.19 Other persistent atrial fibrillation; E66.9 Obesity, unspecified; J44.9 Chronic obstructive pulmonary disease, unspecified; G47.33 Obstructive sleep apnea (adult) (pediatric); Z79.01 Long term (current) use of anticoagulants; Z79.899 Other long term (current) drug therapy; Z99.81 Dependence on supplemental oxygen; Z99.89 Dependence on other enabling machines and devices; Z13.31 Encounter for screening for depression; Z13.30 Encounter for screening examination for mental health and behavioral disorders, unspecified | CPT/HCPCS: 96127; 99202 ==

== ENCOUNTER 2025-05-23 10:06 | Outpatient (REF) | payer MEDICARE, OTHER, SELFPAY ==
--- OUTSIDE RECORDS SUMMARY | 2025-05-23 12:24 | XMS_ITS | Clinical Summary ---
Author Organization [facility] Facility Address [address] [place] [id number] Care Team Providers Care Medical Claims Analyst Name Role Phone Unavailable Primary Care Provider [...] of 2 - PCV) 1969 Influenza Vaccine (#1) 2025 Hepatitis B Vaccine Aged Out No longe r eligible based on patient's age to complete this topic Insurance Medicare [facility] Medicare [facility]
[2025-05-23 14:59] LABS: Total Hemoglobin (HGBA1C) 3393.3083 umol/L
[2025-05-23 15:19] LABS: Blood Urea Nitrogen 16 mg/dL (9-16); Calcium 9.4 mg/dL (8.4-10.2); Estimated Glomerular Filt Rate > 60
[2025-05-23 15:26] LABS: Anion Gap 10 (12-20); Carbon Dioxide 38 mmol/L (22-29); Chloride 96 mmol/L (96-108); Potassium 3.9 mmol/L (3.3-5.1); Sodium 140 mmol/L (135-145)
[2025-05-23 15:35] LABS: Folate 11.5 ng/mL (> or = 4.0); Vitamin B12 334 pg/mL (200-900)
== END 2025-05-23 10:07 | disposition home or self-care (01) ==
LOC: HO.WFDLDS 10:06
PROVIDERS: PCP Internal Medicine; Visit Provider Internal Medicine
DX: Z23 Encounter for immunization (principal); R53.83 Other fatigue; I48.19 Other persistent atrial fibrillation; E05.90 Thyrotoxicosis, unspecified without thyrotoxic crisis or storm; R73.09 Other abnormal glucose; J44.9 Chronic obstructive pulmonary disease, unspecified; M51.34 Other intervertebral disc degeneration, thoracic region; R29.898 Other symptoms and signs involving the musculoskeletal system; R25.1 Tremor, unspecified; R53.1 Weakness
CPT/HCPCS: 36415; 80048; 82607; 82746; 83036; 84443; 90471; 90656; 96127; 99212

== ENCOUNTER 2025-05-23 10:06 | Outpatient (AMB) | payer MEDICARE, OTHER, SELFPAY ==
--- NOTE | 2025-05-23 10:31 | MHC.PC.OV ---
Vital Signs 05/23/25 10:36 BP 116/72 Blood Pressure Location Rt brachial Position Sitting Respiration 15 Pulse 76 Pulse Source Pulse Oximeter Temp 97.8 F Temp Source Temporal Artery Scan Pulse Oximetry (%) 90 L Oxygen Delivery Method Nasal Cannula Intake Visit Reasons: Follow-up/[facility] from [address] [place] [address] DR Colmenares Note: Nicole presents in the office today for a follow up. Allergies prednisone Allergy (Mild, Verified 05/23/25 10:34) Unknown Penicillin Allergy (Severe, Uncoded 05/23/25 10:34) rash Medication List - Last Reconciled 05/23/25 by Sydni Matthews MD ascorbic acid (vitamin C) 500 mg PO DAILY@0800 bumetanide 4 mg (2 x 2 mg) PO DAILY@0800 digoxin 0.125 mg PO DAILY@0800 diltiazem HCl CD (Cardizem CD) 120 mg See Protocol PO DAILY@0800 gabapentin 600 mg (2 x 300 mg) PO QID omeprazole 20 mg PO DAILY@0630 oxycodone 5 mg PO Q6H PRN 7 days primidone 50 mg PO BEDTIME thiamine HCl (vitamin B1) 100 mg PO DAILY@0800 tramadol 50 mg PO QID PRN Tobacco use date assessed: 05/23/25 Dental Screening Dental Screen Date: 05/23/25 Did you have a dental visit in the last 12 months?: No Did you have a dental problem in the last 6 months where you did not have access to dental care?: No Was dental information given to patient?: Patient declined HPI HPI Comments History of Present Illness Details Nicole Goldstein is a 74 years old woman with past medical history significant for hypertension, afib on AC, obesity, COPD on home oxygen, AMY on CPAP presenting for follow up CV: On bumex, diltiazem, digoxin. Blood pressure is well controlled. She is not following with cardiology COPD on home o2. History of ROJAS lung carcinoma-s/p radiation therapy, Dr Zamora. MSK: -OA, DDD. -Low back DDD on CT abd/pelvis. She endorses her legs are like jelly . She reports weakness. She has been unable to walk and spends almost all day in bed and transport with . She had PT/OT but admits she could have made more of an effort to strengthen. Will refer her back. -Recent T1 compression fracture Chronic tramadol. Last visit was reporting not strong enough for pain from recent fracture. She tried one oxycodone I sent in and she did not like the side effects. She is currently doing a little better and stable on tramadol TID and her usual dose of gabapentin Declines referral to spine doctor/pain management at present. It is getting better with time. Evaluated in the ER at the end of January after fall. CT head notable for no evidence of ICH or skull fracture. CT C-spine notable for no evidence of cervical vertebral fracture subluxation, however, T1 fracture noted. T-spine x-ray notable for multilevel spondylosis, unable to evaluate T1 vertebra, no additional thoracic vertebral fractures or subluxation. No evidence of right tibia fracture on x-ray.- TSH was suppressed with last testing-she is due for repeat Neuro: Patient c/o intention tremor-primidone was unhelpful. LE weakness as above. Also endorses worsening memory over the past 1-2 years. accompanies patient today. He and his daughter are having a very difficult time caring for the patient at home. They are using pvta for transportation to appts but are having difficulty coordinating this. He has brought up [facility] living. At the least given her comorbitities and weakness she should qualify for some help within the home. Follows with dermatology for skin cancer. Appt next months ROS see HPI PHYSICAL EXAM: GENERAL: Alert and oriented x 3. NAD, WC bound EYES: EOMI. Anicteric. HENT: Moist mucous membranes. No scleral icterus. No cervical lymphadenopathy. LUNGS: Clear to auscultation bilaterally. CARDIOVASCULAR: Regular rate and rhythm. No murmur. No JVD. ABDOMEN: Soft, non-tender +bs EXTREMITIES: No edema. Non-tender. SKIN: Rough skin with some excoriations of the face NEUROLOGIC: b/l weakness dorsiflexion. CN II-XII grossly intact PSYCHIATRIC: Cooperative. Appropriate mood and affect [facility] Medical History Pneumonia Morbid obesity Atrial fibrillation with rapid ventricular response Constipation Lung cancer Pneumonia COPD with acute exacerbation COPD (chronic obstructive pulmonary disease) Carpal tunnel syndrome, left Nerve pain High blood pressure Surgical History H/O: hysterectomy Family History Mother No problems noted. Father No problems noted. Social History Household Members: Family Housing: House Housing Other:: [facility] Do you presently have visiting nurse or other home services: Yes Alcohol intake: never Patient Tobacco Use Status: Former Tobacco user Tobacco use type: Cigarette Cigarette Packs Per Day: 1 Cigarettes Per Day: 20.0 e-Cigarette/Vaping Use: Former Use Second Hand Smoke Exposure: No Advance Directives Date on File: 03/23/23 service: No Current occupational status: retired Current occupation: left handed Cognitive needs: Yes (wheelchair) Hearing needs: No Vision needs: No Questionnaire PHQ-9 Over the last 2 weeks, how often have you been bothered by any of the following problems? 1. Little interest or pleasure in doing things: nearly every day 2. Feeling down, depressed, or hopeless: more than half the days 3. Trouble falling or staying asleep, or sleeping too much: more than half the days 4. Feeling tired or having little energy: more than half the days 5. Poor appetite or overeating: several days 6. Feeling bad about yourself - or that you are a failure or have let yourself or your family down: several days 7. Trouble concentrating on things, such as reading the newspaper or watching television: more than half the days 8. Moving or speaking so slowly that other people could have noticed. Or the opposite - being so fidgety or restless that you have been moving around a lot more than usual: not at all 9. Thoughts that you would be better off or of hurting yourself in some way: not at all Total score: 13 Depression Screening Interpretation: Positive Depression Screening Follow-up: Declines treatment Depression Screening Done: Yes 20287 - PHQ-9 Billing: Yes Source: Developed by Drs. Dillon Espino, Carole Man, Dilshad Shah and colleagues, with an educational maritza from [employer]. Thrive Questionnaire Date Thrive assessed: 02/21/25 I am a: Parent/Caregiver What is your living situation today?: I have a steady place to live Within the past 12 months, did the food you bought not last and you didn't have the money to get more?: Never true Within the past 12 months, did you worry whether your food would run out before you got money to buy more?: Never true Do you have trouble paying for medicines?: No Do you have trouble getting transportation to medical appointments?: Yes Do you have trouble paying your heating and electricity bill?: No Do you have trouble taking care of your child, family member or friend?: No Do you have trouble with day-to-day activities such as bathing, preparing meals, shopping, managing finances, etc.?: Yes Are you currently unemployed and looking for a job?: No Are you interested in more education?: No Please select the resources that you would like help with: Transportation and Care for elder or disabled Currently or been in a relationship where the following occur: No concerns reported THRIVE Score: 1 AUDIT C Alcohol Use Questionnaire (AUDIT-C) 1. How often do you have a drink containing alcohol?: Never Total Score: 0 CARLOS-7 AMB Questionnaire CARLOS-7 Date CARLOS - 7 assessed: 02/21/25 Feeling nervous, anxious, or on edge: 1 = Several days Not being able to stop or control worryin = Several days Worrying too much about different things: 1 = Several days Trouble relaxin = Several days Being so restless that it is hard to sit still: 0 = Not at all Becoming easily annoyed or irritable: 0 = Not at all Feeling afraid as if something awful might happen: 1 = Several days Total CARLOS-7 score (0-4 normal; 5-9 mild; 10-14 moderate; 15-21 severe): 5 Source: Developed by Drs. Dillon Espino, Carole Man, Dilshad Shah and colleagues, with an educational maritza from [employer]. Physical exam (Primary Care) Vital Signs: Last Vital Signs Temp 97.8 F 05/23/25 10:36 Pulse 76 05/23/25 10:36 Resp 15 05/23/25 10:36 BP 116/72 05/23/25 10:36 Pulse Ox 90 L 05/23/25 10:36 Oxygen Delivery Method Nasal Cannula 05/23/25 10:36 Tobacco/Smoking Status: Tobacco use Status Tobacco use date assessed 05/23/25 05/23/25 10:40 Patient Tobacco Use Status Former Tobacco user 05/23/25 10:36 Tobacco use type Cigarette 05/23/25 10:36 e-Cigarette/Vaping Use Former Use 05/23/25 10:36 PHQ-9: PHQ-9 Score PHQ-9: Total score 13 05/23/25 11:34 Depression Screening Interpretation: Positive Depression Screening Follow-up: Declines treatment Thrive Assessment: Date of Thrive Assessment Date Thrive assessed 02/21/25 05/23/25 10:33 Currently or been in a relationship where the following occur: No concerns reported Office Procedures Flu Questionnaire Does the patient have a severe egg allergy?: No Does the patient have severe life threatening allergies?: No Does the patient have a fever or illness today?: No Has the patient ever had Guillain-Hale Syndrome?: No Has the patient ever had any past reaction to a flu shot?: No Immunizations Fluarix [id number] (PF) 45 mcg (15 mcg x 3)/0.5 mL IM syringe Performing Provider: Sydni Matthews MD Performing Location: [facility] [place] Family Medicine Administered by: Avril Hope CMA on 05/23/25 11:34 Dose Route Admin Location Dispensed Lot Number Expiration Date [facility] [employer] Salesperson 0.5 mL IM Left Deltoid 0.5 mL [id number] 03/03/26 [id number] [employer] VIS Given Date VIS Provided VIS Publication Date 05/23/25 Single Vaccine 24 Eligibility Eligibility Date Funding Source Not [facility] Eligible 05/23/25 Private Coding Level of Care Code Est Pt Level 4 (13596) Diagnoses Chronic obstructive pulmonary disease, unspecified COPD type J44.9 COPD type: unspecified COPD DDD (degenerative disc disease), thoracic M51.34 Weakness of both lower extremities R29.898 Laterality: bilateral Tremor R25.1 Weakness generalized R53.1 Additional Codes PHQ-9 - 82736 - PHQ-9 Billing: Yes ([id number]) Assessment & Plan Assessment & Plan (1) COPD (chronic obstructive pulmonary disease): Code(s): J44.9 - Chronic obstructive pulmonary disease, unspecified Category: Medical Qualifiers: COPD type: unspecified COPD Qualified Code(s): J44.9 - Chronic obstructive pulmonary disease, unspecified (2) DDD (degenerative disc disease), thoracic: Code(s): M51.34 - Other intervertebral disc degeneration, thoracic region Category: Medical (3) Lower extremity weakness: Code(s): R29.898 - Other symptoms and signs involving the musculoskeletal system Category: Medical Qualifiers: Laterality: bilateral Qualified Code(s): R29.898 - Other symptoms and signs involving the musculoskeletal system (4) Tremor: Code(s): R25.1 - Tremor, unspecified Category: Medical (5) Weakness generalized: Code(s): R53.1 - Weakness Category: Medical Plan 74 year old for follow up Needs PT/OT, needs retirement help in the home, with transportation-refer community navigator Chronic pain-stable. LE weakness. MRI lumbar spine ordered. Labs ordered Orders: Orders Vitamin B12 and Folate Today R53.83 - Other fatigue Basic Metabolic Panel Today E05.90 - Thyrotoxicosis, unspecified without thyrotoxic crisis or storm, I48.19 - Other persistent atrial fibrillation MR lumbar spine wo con Today R29.898 - Other symptoms and signs involving the musculoskeletal system Influenza [id number] Immunization Today Z23 - Encounter for immunization Referrals Neurology Referral R25.1 - Tremor, unspecified, R29.898 - Other symptoms and signs involving the musculoskeletal system, R41.3 - Other amnesia Home Health Referral R53.1 - Weakness, S22.010D - Wedge compression fracture of first thoracic vertebra, subsequent encounter for fracture with routine healing Medications: Changed From tramadol 50 mg PO QID PRN 120 tabs 0RF Pain 1-6 M51.34 - Other intervertebral disc degeneration, thoracic region To tramadol 50 mg PO TID PRN 90 tabs 3RF pain M51.34 - Other intervertebral disc degeneration, thoracic region Discontinued primidone Discontinued Reason: Doctor's Order 50 mg PO BEDTIME 90 tabs 3RF oxycodone Partial Fill upon patient request. Discontinued Reason: Doctor's Order 5 mg PO Q6H 7 days PRN 28 tabs 0RF pain (scale score 7-10) S22.000A - Wedge compression fracture of unspecified thoracic vertebra, initial encounter for closed fracture
[2025-05-23 10:36] VITALS: BP 116/72; PULSE 76; RESP 15; TEMP 36.6; O2SAT 90
== END 2025-05-23 11:39 | disposition home or self-care (01) ==
LOC: HO.HMCFM 10:07
PROVIDERS: PCP Internal Medicine; Visit Provider Internal Medicine
DX: J44.9 Chronic obstructive pulmonary disease, unspecified (principal); M51.34 Other intervertebral disc degeneration, thoracic region; R29.898 Other symptoms and signs involving the musculoskeletal system; R25.1 Tremor, unspecified; R53.1 Weakness; Z23 Encounter for immunization

== ENCOUNTER 2025-07-04 11:18 | Outpatient (AMB) | payer MEDICARE, OTHER, SELFPAY ==
--- NOTE | 2025-07-04 11:25 | MHC.PC.OV ---
Vital Signs 07/04/25 11:32 BP 104/64 Blood Pressure Location Rt brachial Position Sitting Respiration 14 Pulse 73 Pulse Source Pulse Oximeter Temp 98.4 F Temp Source Oral Pulse Oximetry (%) 95 Oxygen Delivery Method Nasal Cannula Oxygen Flow Rate 5 Intake Visit Reasons: Eye Surgery Intake Note: Bilateral cataracts with Dr Snyder Computer Systems Administrator Required: No Allergies prednisone Allergy (Mild, Verified 07/04/25 11:31) Unknown Penicillin Allergy (Severe, Uncoded 07/04/25 11:31) rash Tobacco use date assessed: 07/04/25 Fall risk assessment: No Falls in past year Last assessed Fall Risk: 07/04/25 Dental Screening Dental Screen Date: 05/23/25 HPI HPI Comments History of Present Illness Details Nicole Goldstein is a 74 years old woman with past medical history significant for hypertension, afib on AC, obesity, COPD on home oxygen, AMY on CPAP presenting for preoperative clearance-jul 21 & aug 18 Dr Snyder at [facility] under local anesthesia. CV: On bumex, diltiazem, digoxin. Blood pressure is well controlled. She is not following with cardiology. Echocardiogram March 2023 EF 70%, diastolic dysfunction. Denies chest pain. No increase in shortness of breath. Sits the entirety of the day-WC COPD on home o2. History of ROJAS lung carcinoma-s/p radiation therapy, Dr Zamora. Prediabetes/diabetes: Last a1C 6.5%. MSK: -OA, DDD. -Low back DDD on CT abd/pelvis. She endorses her legs are like jelly . She reports weakness. She has been unable to walk and spends almost all day in bed and transport with . She had PT/OT but admits she could have made more of an effort to strengthen-referred back. She now has [employer] at home -Recent T1 compression fracture. stable pain. On tramadol, gabapentin. Declines referral to spine doctor/pain management at present. It is getting better with time. Evaluated in the ER at the end of January after fall. CT head notable for no evidence of ICH or skull fracture. CT C-spine notable for no evidence of cervical vertebral fracture subluxation, however, T1 fracture noted. T-spine x-ray notable for multilevel spondylosis, unable to evaluate T1 vertebra, no additional thoracic vertebral fractures or subluxation. No evidence of right tibia fracture on x-ray.- TSH normalized with last testing Neuro: Patient c/o intention tremor-primidone was unhelpful. LE weakness as above. Also endorses worsening memory over the past 1-2 years. She h Follows with dermatology for skin cancer. Appt next months ROS see HPI PHYSICAL EXAM: GENERAL: Alert and oriented x 3. NAD, WC bound EYES: EOMI. Anicteric. HENT: Moist mucous membranes. No scleral icterus. No cervical lymphadenopathy. LUNGS: Clear to auscultation bilaterally. CARDIOVASCULAR: Regular rate and rhythm. No JVD. ABDOMEN: Soft, non-tender +bs EXTREMITIES: No edema. Non-tender. SKIN: Rough skin with some excoriations of the face NEUROLOGIC: b/l weakness dorsiflexion. CN II-XII grossly intact PSYCHIATRIC: Cooperative. Appropriate mood and affect [facility] Medical History Pneumonia Morbid obesity Atrial fibrillation with rapid ventricular response Constipation Lung cancer Pneumonia COPD with acute exacerbation COPD (chronic obstructive pulmonary disease) Carpal tunnel syndrome, left Nerve pain High blood pressure Surgical History H/O: hysterectomy Family History Mother No problems noted. Father No problems noted. Social History Household Members: Family Housing: House Housing Other:: [facility] Do you presently have visiting nurse or other home services: Yes Alcohol intake: never Patient Tobacco Use Status: Former Tobacco user Tobacco use type: Cigarette Cigarette Packs Per Day: 1 Cigarettes Per Day: 20.0 e-Cigarette/Vaping Use: Former Use Second Hand Smoke Exposure: No Advance Directives Date on File: 03/23/23 service: No Current occupational status: retired Current occupation: left handed Cognitive needs: Yes (wheelchair) Hearing needs: No Vision needs: No Questionnaire Thrive Questionnaire Date Thrive assessed: 05/23/25 I am a: Parent/Caregiver What is your living situation today?: I have a steady place to live Within the past 12 months, did the food you bought not last and you didn't have the money to get more?: Never true Within the past 12 months, did you worry whether your food would run out before you got money to buy more?: Never true Do you have trouble paying for medicines?: No Do you have trouble getting transportation to medical appointments?: Yes Do you have trouble paying your heating and electricity bill?: No Do you have trouble taking care of your child, family member or friend?: No Do you have trouble with day-to-day activities such as bathing, preparing meals, shopping, managing finances, etc.?: Yes Are you currently unemployed and looking for a job?: No Are you interested in more education?: No Currently or been in a relationship where the following occur: No concerns reported THRIVE Score: 1 AUDIT C Alcohol Use Questionnaire (AUDIT-C) 1. How often do you have a drink containing alcohol?: Never 3. How often do you have six or more drinks on one occasion?: Never Total Score: 0 CARLOS-7 AMB Questionnaire CARLOS-7 Date CARLOS - 7 assessed: 02/21/25 Source: Developed by Drs. Dillon Espino, Carole Man, Dilshad Shah and colleagues, with an educational maritza from [employer]. Physical exam (Primary Care) Vital Signs: Last Vital Signs Temp 98.4 F 07/04/25 11:32 Pulse 73 07/04/25 11:32 Resp 14 07/04/25 11:32 BP 104/64 07/04/25 11:32 Pulse Ox 95 07/04/25 11:32 Oxygen Delivery Method Nasal Cannula 07/04/25 11:32 Oxygen Flow Rate 5 07/04/25 11:32 Tobacco/Smoking Status: Tobacco use Status Tobacco use date assessed 07/04/25 07/04/25 11:36 Patient Tobacco Use Status Former Tobacco user 07/04/25 11:28 Tobacco use type Cigarette 07/04/25 11:28 e-Cigarette/Vaping Use Former Use 07/04/25 11:28 Thrive Assessment: Date of Thrive Assessment Date Thrive assessed 05/23/25 07/04/25 11:28 Currently or been in a relationship where the following occur: No concerns reported Coding Level of Care Code Est Pt Level 4 (92225) Complex EM visit Add On G2211 Diagnoses Encounter for preoperative assessment for noncoronary cardiac surgery Z01.810 Chronic obstructive pulmonary disease, unspecified COPD type J44.9 COPD type: unspecified COPD Paroxysmal A-fib I48.0 Assessment & Plan Assessment & Plan (1) Encounter for preoperative assessment for noncoronary cardiac surgery: Code(s): Z01.810 - Encounter for preprocedural cardiovascular examination Category: Medical (2) COPD (chronic obstructive pulmonary disease): Code(s): J44.9 - Chronic obstructive pulmonary disease, unspecified Category: Medical Qualifiers: COPD type: unspecified COPD Qualified Code(s): J44.9 - Chronic obstructive pulmonary disease, unspecified (3) Paroxysmal A-fib: Code(s): I48.0 - Paroxysmal atrial fibrillation Category: Medical Plan 74 year old female for preoperative cardiac assessment COPD on 02. History of Afib, diastolic dysfunction METS cannot be determined EKG abnormal. No evidence of acute ischemia. This is a low risk surgery, that said she is high risk patient. She should have cardiology clearance v pharmacologic stress prior to procedure. This will be arranged Orders: Orders NM cardiolite stress test Today I48.0 - Paroxysmal atrial fibrillation, R94.31 - Abnormal electrocardiogram [ECG] [EKG], Z01.810 - Encounter for preprocedural cardiovascular examination CA stress test Today R53.1 - Weakness, R94.31 - Abnormal electrocardiogram [ECG] [EKG], Z01.810 - Encounter for preprocedural cardiovascular examination Referrals Cardiology Referral I48.0 - Paroxysmal atrial fibrillation, R94.31 - Abnormal electrocardiogram [ECG] [EKG], Z01.810 - Encounter for preprocedural cardiovascular examination
[2025-07-04 11:32] VITALS: BP 104/64; PULSE 73; RESP 14; TEMP 36.9; O2SAT 95
--- OUTSIDE RECORDS SUMMARY | 2025-07-04 12:52 | XMS_ITS | Clinical Summary ---
Author Organization [facility] Facility Address [address] [place] [id number] Care Team Providers Care Call Or Contact Centre Manager Name Role Phone Unavailable Primary Care Provider [...] age to complete this topic Insurance Medicare [employer] Medicare [employer]
== END 2025-07-04 12:02 | disposition home or self-care (01) ==
LOC: HO.HMCFM 11:19
PROVIDERS: PCP Internal Medicine; Visit Provider Internal Medicine
DX: Z01.810 Encounter for preprocedural cardiovascular examination (principal); J44.9 Chronic obstructive pulmonary disease, unspecified; I48.0 Paroxysmal atrial fibrillation

== ENCOUNTER → 2025-07-04 11:18 | Outpatient (BNVA) | payer MEDICARE, OTHER, SELFPAY | PROVIDERS: PCP Internal Medicine; Visit Provider Internal Medicine | DX: Z01.810 Encounter for preprocedural cardiovascular examination (principal); J44.9 Chronic obstructive pulmonary disease, unspecified; I48.0 Paroxysmal atrial fibrillation; G47.33 Obstructive sleep apnea (adult) (pediatric); I10 Essential (primary) hypertension; Z79.01 Long term (current) use of anticoagulants; Z79.899 Other long term (current) drug therapy; Z85.118 Personal history of other malignant neoplasm of bronchus and lung; Z92.3 Personal history of irradiation; Z99.81 Dependence on supplemental oxygen; Z99.89 Dependence on other enabling machines and devices | CPT/HCPCS: 99212 ==

== ENCOUNTER → 2025-07-09 09:36 | Outpatient (REF) | payer MEDICARE, OTHER, SELFPAY ==
--- NOTE | ~2025-07-09 | NM_ITS ---
Lexiscan Myocardial perfusion study Indication: Abnormal EKG to evaluate for myocardial ischemia Technique: The patient was brought in for a Lexiscan perfusion study on 07/09/2025 and was injected 0.4 mg of Lexiscan intravenously. Within a minute of this injection 30 mCi of sestamibi was given intravenously. Images were obtained using the SPECT gamma camera interlaced with the gating device. Images were obtained in supine position. Resting perfusion study was performed on 07/14/2025. Patient was administered 30 mCi of sestamibi intravenously at rest. Images were then obtained in supine position. Images were processed with the software and compared side to side in short axis, horizontal long axis and vertical long axis views. Images obtained without without CT attenuation. Total DLP 110 mGy-cm. Findings: The stress perfusion study showed nonattenuated images show focal area of mildly reduced uptake in the distal lateral wall of the LV myocardium. Attenuated corrected images show mildly reduced uptake in the apex of the LV myocardium. The gated study shows normal LV systolic function with calculated LVEF of 67%. LV cavity is normal in size. The gated study shows normal systolic wall thickening and contraction of segments. Resting study shows no change in perfusion pattern compared to stress perfusion study. Gating at rest reveals normal systolic wall motion with ejection fraction at 65%. The findings are consistent with normal myocardial perfusion. NM/NM cardiolite stress test Impression: 1. Myocardial perfusion imaging study shows normal myocardial perfusion 2. Gated LVEF is 67% 3. Transient ischemic dilatation not present Nondiagnostic changes on EKG. Electronically signed by: Tyson Godoy MD 07/15/2025 12:26 PM [facility]
--- NOTE | 2025-07-09 09:39 | CA_ITS ---
Acquisition Time: 2025-07-09 10:01:04 Total Exercise Time: 00:02:00 Test Indications: Dyspnea,Palpitations,Pre-Op Evaluation Medications: SEE H&P Protocol: LEXISCAN Max HR: 127 BPM 88% of Pred: 144 BPM Max BP: 122/70 mmHG Max Work Load: 1.0 METS Pharmalogical stress test with Lexican while pt moves her legs in chair, with reports of SOB, with frequent PVCs, with normotensive response to injection. Nondiagnostic EKG for ischemia. In recovery, pt treated with IVP Aminophylline 75mg to reverse Lexiscan after which pt feeling back to baseline. Nuclear images pending. Test reviewed with Dr. Kent. Referred By: Sydni Matthews Electronically Signed By: Raj Chavira
--- OUTSIDE RECORDS SUMMARY | 2025-07-09 10:46 | XMS_ITS | Clinical Summary ---
Author Organization [facility] Facility Address [address] [place] [id number] Care Team Providers Care Tire Tester Name Role Phone Unavailable Primary Care Provider [...] age to complete this topic Insurance Medicare [facility] Medicare [facility]
== END ==
LOC: HO.CARD 09:36
PROVIDERS: PCP Internal Medicine; Visit Provider Internal Medicine
DX: Z01.810 Encounter for preprocedural cardiovascular examination (principal); I48.0 Paroxysmal atrial fibrillation; R94.31 Abnormal electrocardiogram [ECG] [EKG]; R53.1 Weakness; R06.00 Dyspnea, unspecified; R00.2 Palpitations
CPT/HCPCS: 78452; 93017; A9500; J0280; J2785

== ENCOUNTER → 2025-07-09 09:39 | Outpatient (BNV) | payer MEDICARE, OTHER, SELFPAY | PROVIDERS: PCP Internal Medicine | DX: I49.3 Ventricular premature depolarization (principal); R06.02 Shortness of breath | CPT/HCPCS: 78452; 93016; 93018 ==

== ENCOUNTER 2025-08-08 12:11 | Inpatient (IN) | payer MEDICARE, OTHER, SELFPAY ==
[2025-08-08] VITALS (7 sets, daily range): BP systolic 108–123; BP diastolic 54–69; PULSE 64–88; RESP 14–18; TEMP 36.6–37.7; O2SAT 93–97; BMI 31.8; BMI 32.1
--- NOTE | ~2025-08-08 | XR_ITS ---
EXAMINATION: XR CHEST CLINICAL INFORMATION: SOB COMPARISON: 09/15/2023 TECHNIQUE: Frontal view of the chest was obtained. FINDINGS: Diffuse coarse reticular markings are seen throughout the lungs. Lungs are mildly aerated. Cardiac size is within normal limits. The left hemidiaphragm is slightly indistinct and mildly tented. XR/XR chest 1V IMPRESSION: Left basilar density could represent atelectasis and/or pneumonia. Electronically signed by: Maged Osuna MD 08/08/2025 01:45 PM [facility]
--- NOTE | ~2025-08-08 | CT_ITS ---
EXAMINATION: CT CHEST WITHOUT CONTRAST CLINICAL INFORMATION: ? Pneumonia. Shortness of breath. COMPARISON: Chest x-ray earlier same day. CT chest on 09/15/2023. TECHNIQUE: Multidetector volumetric CT imaging of the chest was done. Axial MIP volume rendering provided. Sagittal and coronal reformatted images were obtained. This CT examination was performed using dose optimization techniques as appropriate, variously including the following: *Automated exposure control *Adjustment of mA and/or kV according to patient size (this includes techniques or standardized protocols for targeted exams where dose is matched to indication/reason for exam; i.e. extremities or head) *Use of iterative reconstruction technique FINDINGS: LUNGS: There is mild respiratory motion degradation present. This limits sensitivity of the study. There is moderate centrilobular emphysema present with upper lobe predominance. There is segmental consolidation in the left lower lobe with air bronchograms, and volume loss, findings highly suspicious for pneumonia. There is no effusion. There is patchy peribronchial opacity and subpleural opacity in the right lower lobe, also suspicious for pneumonic involvement. Patchy opacity in the anterior basal right lower lobe, consistent with similar etiology. There is similar subpleural scarring in the left apex. There is a more prominent medial nodular component (for example, series 7, image 74; series 8 image 74). Developing neoplasm is a consideration. A mild amount of smooth interlobular septal thickening is present diffusely, possible mild fluid overload. Bilateral small airway thickening in the lower lobe distribution. MEDIASTINUM: There is mild cardiomegaly present. No pericardial effusion.There is a prominent epicardial fat pad. There are heavy coronary calcifications. Central airways are patent. The main pulmonary trunk measures a diameter of 3.9 cm, consistent with pulmonary arterial hypertension. The aorta is nonaneurysmal, with moderate atheromatous calcification mild tortuosity. There is no mediastinal mass or significant lymphadenopathy. Reactive appearing lymph nodes are present. The partially imaged thyroid is mildly enlarged, with macrocalcification in the right lower pole. No dominant nodule evident. The esophagus is unremarkable in appearance. CORONARY ARTERY CALCIFICATION: Heavy. AXILLA/CHEST WALL: No mass or abnormal lymph nodes present. UPPER ABDOMEN: There is hepatic enlargement and diffuse hepatic fatty infiltration. Gallbladder is not well seen and may be surgically absent. Right kidney is ptotic. There is a splenic artery aneurysm present measuring 11 mm in diameter. Diffuse thickening of the left greater than right adrenal glands, suggestive of hyperplasia. There are subcentimeter cysts in the left kidney. OSSEOUS STRUCTURES: There is no suspicious lytic or blastic bone lesion present. There are degenerative changes throughout the spine. CT/CT chest wo IV con IMPRESSION: Study mildly limited by respiratory motion artifact. 1. Left lower lobe consolidation consistent with pneumonia. No effusions. 2. Patchy peribronchovascular opacities in the posterior right lower lobe also suspicious for pneumonic involvement. 3. Moderate centrilobular emphysema. Smooth interlobular septal thickening diffusely suggesting a degree of fluid overload/interstitial edema. 4. More confluent masslike scarring in the left medial apex, and given appearance, possibility of DEVELOPING NEOPLASM in this region should be considered. Consider further imaging with PET/CT. 5. Cardiomegaly. Enlarged main pulmonary artery suggesting pulmonary hypertension. 5. Hepatomegaly with diffuse fatty infiltration. 6. Ancillary findings as discussed in the body of the report. Electronically signed by: Domenic Aguilar MD 08/08/2025 03:31 PM [facility]
--- NOTE | 2025-08-08 12:32 | ECG_ITS ---
Test Reason : SOB Blood Pressure : */* mmHG Vent. Rate : 82 BPM Atrial Rate : 82 BPM P-R Int : 150 ms QRS Dur : 86 ms QT Int : 324 ms P-R-T Axes : * 94 -26 degrees QTcB Int : 378 ms Sinus rhythm with occasional Premature ventricular complexes Rightward axis Nonspecific ST and T wave abnormality Premature ventricular complexes Abnormal ECG When compared with ECG of 28-Jan-2025 06:27, Rhythm change QRS axis Shifted right ST now depressed in Inferior leads Referred By: Franci Templeton Electronically Signed By: DUNG GRAHAM
--- NOTE | 2025-08-08 12:52 | ED_ITS ---
HPI - SOB/Dyspnea General Chief Complaint: Dyspnea Stated Complaint: SOB,PROD COUGH,HOME O2/5LPM,FULL SENTENCES Time Seen by Provider: 08/08/25 12:52 Source: patient, EMS, RN notes reviewed and old records reviewed Mode of arrival: EMS History of Present Illness ED Provider: Mita Jones PA-C HPI Narrative: 74-year-old female with a past medical history proximal AFib, COPD on baseline 5 L nasal cannula, HTN, presenting to the ED via EMS sent from urgent care for worsening SOB and cough x5 days. Patient denies chest pain, abdominal pain, nausea /vomiting, pedal edema. Does report sick contacts. Related Data Home Medications ?Medication ?Instructions ?Recorded ?Confirmed ascorbic acid (vitamin C) 500 mg 500 mg PO DAILY@0800 08/18/23 05/23/25 tablet thiamine HCl (vitamin B1) 100 mg 100 mg PO DAILY@0800 08/18/23 05/23/25 tablet Previous Rx's ?Medication ?Instructions ?Recorded omeprazole 20 mg capsule,delayed 20 mg PO DAILY@0630 # 30 caps 08/25/23 release digoxin 125 mcg (0.125 mg) tablet 0.125 mg PO DAILY@08 00 #90 tabs 11/15/24 bumetanide 2 mg tablet 4 mg (2 x 2 mg) PO DAILY@080 0 #180 01/03/25 tabs diltiazem HCl 120 mg 120 mg PO DAILY@0800 #90 cap s 01/03/25 capsule,extended release 24 hr (Cardizem CD) gabapentin 300 mg capsule 600 mg (2 x 300 mg) PO QID # 720 05/28/25 caps tramadol 50 mg tablet 50 mg PO Q6H #112 tabs 06/24 nitrofurantoin macrocrystal 100 mg 100 mg PO Q12H #14 caps 07/30/25 capsule Allergies Allergy/AdvReac Type Severity Reaction Status Date / Time prednisone Allergy Mild Unknown Verified 08/08/25 12:55 Penicillin Allergy Severe rash Uncoded 08/08/25 12:55 Review of Systems 2 Review of Systems: Yes all other systems are reviewed and are negative Constitutional: Constitutional: Reports as per HPI ON LICENSE OF [facility] Past Medical History Attestation statement: The following information was validated with the patient. Source: old records reviewed Medical History Persistent atrial fibrillation Pneumonia Morbid obesity Atrial fibrillation with rapid ventricular response Constipation Lung cancer Pneumonia COPD with acute exacerbation COPD (chronic obstructive pulmonary disease) Carpal tunnel syndrome, left Nerve pain High blood pressure Surgical History H/O: hysterectomy Family History Family History Mother No problems noted. Father No problems noted. Social History Social History Household Members: Family Housing: House Housing Other:: [facility] Do you presently have visiting nurse or other home services: Yes Alcohol intake: never Patient Tobacco Use Status: Former Tobacco user Tobacco use type: Cigarette Cigarette Packs Per Day: 1 Cigarettes Per Day: 20.0 e-Cigarette/Vaping Use: Former Use Second Hand Smoke Exposure: No Advance Directives: Yes Advance Directives on File: Yes Advance Directives Date on File: 03/23/23 Do you have a plan to hurt others: No Plan service: No Current occupational status: retired Current occupation: left handed Cognitive needs: Yes (wheelchair) Hearing needs: No Vision needs: No Physical Exam 2 Vital Signs: Vital Signs: Last Vital Signs Temp 97.9 F 08/08/25 16:19 Pulse 72 08/08/25 16:19 Resp 18 08/08/25 16:19 BP 114/54 L 08/08/25 16:19 Pulse Ox 93 08/08/25 16:19 O2 Del Method Nasal Cannula 08/08/25 16:19 O2 Flow Rate 2 08/08/25 16:19 Oxygen Flow Rate 5 08/08/25 12:53 BMI result Body Mass Index 31.8 Const: General: cooperative, healthy appearing and no acute distress O rientation/consciousness: patient oriented x3 Limitations: no limitations HEENT: Head: Yes normal to inspection and Yes atraumatic Ears: hearing grossly normal bilaterally General nose exam: Normal external nose present Face and sinus: Yes normal facial exam Eyes: General: appearance normal, both eyes and all related structures EOM: EOMs intact bilaterally Neck: Neck: Yes normal visual inspection and Yes no meningeal signs Resp: Effort & Inspection: normal respiratory effort and no respiratory distress Auscultation: crackles bilateral at the base Cardio: Rate: regular rate Heart sounds: S1 normal heart sound present and S2 normal heart sound present GI: Inspection: Yes normal to inspection Palpation (GI): Soft to palpation, nontender, no guarding and not rigid : General: Yes no CVA tenderness Back/Spine/Pelvis: Back: no CVA tenderness Skin: Rashes: no rashes Wounds: no wounds Neuro: General: patient oriented x3, tone normal and no meningeal signs C ranial nerves: Yes CN's II-XII intact bilaterally Gait exam (Neuro): Normal gait present Extrem: General: Yes normal to inspection, Yes no pedal edema and Yes no calf tenderness Course Course Course Narrative: -1408-- no leukocytosis. H/H stable. potassium low at 3.0 > p.o. repletion ordered. -Lactic acid elevated to 2.8 > IVF ordered > continued low suspicion for severe sepsis - troponin 17 > will obtain repeat - UA nitrite positive, leuk esterase, and bacteria - COVID-19 positive XR chest 1V IMPRESSION: Left basilar density could represent atelectasis and/or pneumonia. > we will give empiric IV Rocephin to cover UTI / possible pneumonia and obtain chest CT for further eval -1550-- repeat troponin without significant rise, mi unlikely CT chest wo IV con IMPRESSION: Study mildly limited by respiratory motion artifact. 1. Left lower lobe consolidation consistent with pneumonia. No effusions. 2. Patchy peribronchovascular opacities in the posterior right lower lobe also suspicious for pneumonic involvement. 3. Moderate centrilobular emphysema. Smooth interlobular septal thickening diffusely suggesting a degree of fluid overload/interstitial edema. 4. More confluent masslike scarring in the left medial apex, and given appearance, possibility of DEVELOPING NEOPLASM in this region should be considered. Consider further imaging with PET/CT. 5. Cardiomegaly. Enlarged main pulmonary artery suggesting pulmonary hypertension. 5. Hepatomegaly with diffuse fatty infiltration. 6. Ancillary findings as discussed in the body of the report. -repeat lactic acid still 2.7 > plan to admit for further management Medications Administered Generic Name Dose Route Start Last Admin Trade Name Freq PRN Reason Stop Dose Admin Azithromycin 500 mg/ Sodium 250 mls @ 125 mls/hr 08/08/25 15:52 08/08/25 16:46 Chloride IV 08/08/25 17:51 125 mls/hr ONCE ONE Administration Discontinued Medications Generic Name Dose Route Start Last Admin Trade Name Osito PRN Reason Stop Dose Admin Albuterol Sulfate 2.5 mg/ 0 mg 08/08/25 13:21 08/08/25 13:24 Albuterol/Ipratropium 3 ml INHALE 08/08/25 13:22 5 dose ONCE ONE Administration Sodium Chloride 500 mls @ 999 mls/hr 08/08/25 13:45 08/08/25 14:30 Ns IV 08/08/25 14:15 Infused .Q31M LE Infusion Potassium Chloride 10 meq in 100 mls @ 100 mls/hr 08/08/25 14:13 08/08/25 16:43 Potassium Chloride/H20 IV 08/08/25 15:12 Infused ONCE ONE Infusion Ceftriaxone Sodium 1 gm/ 50 mls @ 100 mls/hr 08/08/25 14:15 08/08/25 15:36 Sodium Chloride IV 08/08/25 14:44 Infused ONCE ONE Infusion Potassium Chloride 60 meq 08/08/25 14:09 08/08/25 14:26 Potassium Chloride Packet 20 Meq Packet PO 08/08/25 14:10 60 meq ONCE ONE Administration Medical Decision Making Medical Decision Making MDM Narrative: 74-year-old female with a past medical history proximal AFib, COPD on baseline 5 L nasal cannula, HTN, presenting to the ED via EMS sent from urgent care for worsening SOB and cough x5 days. on exam vital signs stable, satting on 95 on baseline O2, bibasilar crackles noted, no appreciable pitting edema. Concern for viral illness vs pneumonia vs COPD exacerbation. lower suspicion for ACS/ Dissection or CHF Plan: EKG, labs, CXR, viral testing, ED bronch protocol, IV Solu-Medrol Please refer to course for remaining clinical decision making, interpretation of labs/imaging results, and discussions with consultants and/or family members. Differential Diagnosis Differential Diagnoses: The differential diagnosis associated with the presentation includes As above Admission/Observation Consideration of admission/observation: Escalation of care including admission/observation considered Consult Healthcare Provider Management of the patient was discussed with: Hospitalist Lab Data [facility] Lab Attestation statement: I reviewed the patient's lab results. 08/08/25 12:47 08/08/25 12:47 Labs: Lab Results 08/08/25 08/08/25 08/08/25 Range/Units 12:47 12:48 12:56 WBC 7.0 (4.8-10.8) X10*3/uL RBC 5.80 H (4.20-5.50) X10*6/uL Hgb 15.0 (12.0-16.0) g/dl Hct 50.3 H (37.0-47.0) % MCV 86.7 (80.0-98.0) fL MCH 25.9 L (27.0-33.0) pg MCHC 29.8 L (31.0-35.0) g/dl RDW 14.8 (11.0-16.0) % Plt Count 305 (160-400) X10*3/uL MPV 9.5 (9.4-12.3) fL Immature Gran % (Auto) 0.4 (0.0-0.4) % Neut % (Auto) 77.0 H (45-73) % Lymph % (Auto) 13.7 L (20-40) % [place] % (Auto) 8.0 (2-11) % Eos % (Auto) 0.6 (0-4) % Baso % (Auto) 0.3 (0-2) % Lymph # (Auto) 1.0 L (1.2-4.9) X10*3/uL [place] # (Auto) 0.6 (0.1-1.2) X10*3/uL Eos # (Auto) 0.0 (0.0-0.4) X10*3/uL Baso # (Auto) 0.0 (0.0-0.2) X10*3/uL Abs Immat Gran (auto) 0.03 (0.00-0.03) X10*3/uL Absolute Neuts (auto) 5.4 (2.0-8.3) x10*3/uL Absolute Nucleated RBC 0.000 (0.0-0.012) X10*3/uL Nucleated RBC % (auto) 0.0 (0.0-0.2) /100WBC PT 12.8 (11.2-13.5) SEC INR 1.0 (0.9-1.1) VBG pH Cancelled 7.46 H VBG pCO2 Cancelled 62 VBG pO2 Cancelled 43 VBG HCO3 Cancelled 44 H VBG O2 Saturation Cancelled 64.0 VBG Base Excess Cancelled 16.3 Sodium 136 (135-145) mmol/L Potassium 3.0 L D (3.3-5.1) mmol/L Chloride 88 L (96-108) mmol/L Carbon Dioxide 39 H (22-29) mmol/L Anion Gap 12 (12-20) BUN 22 H (9-16) mg/dL Creatinine 1.03 (0.5-1.4) mg/dL Estim Creat Clear Calc 46.9 Estimated GFR 52 Random Glucose 171 H (60-115) mg/dL Lactic Acid 2.8 H* (0.5-2.0) mmol/L Lactic Acid F/U @ 2Hr (0.5-2.0) mmol/L Calcium 9.8 (8.4-10.2) mg/dL Magnesium 1.9 (1.6-2.6) mg/dL Total Bilirubin 0.4 (0.0-1.0) mg/dL AST 78 H (5-31) U/L ALT 40 H (0-31) U/L Alkaline Phosphatase 169 H (39-117) U/L Troponin I High Sens 17.0 D (<3.5-17.0) ng/L NT-Pro-B Natriuret Pep 246.5 (<300) pg/mL Total Protein 8.3 H (6.5-8.0) g/dL Albumin 3.0 L (3.5-5.0) g/dL Urine Color Yellow Urine Appearance Clear Urine pH 5.5 (5.0-9.0) Ur Specific Gray 1.010 (1.005-1.025) Urine Protein Trace (Neg-Trace) mg/dL Urine Glucose (UA) Negative (Negative) mg/dL Urine Ketones Negative (Negative) mg/dL Urine Blood Negative (Negative) Urine Nitrite Positive H (Negative) Ur Leukocyte Esterase Trace H (Negative) Urine RBC 0-2 (0-2) /HPF Urine WBC 0-5 (0-5) /HPF Ur Squamous Epith Cells 0-2 (0-2) /HPF Urine Bacteria 4+ (None Seen) Hyaline Casts 0-2 (0-2) /LPF Influenza Type A (PCR) (Negative) Influenza Type B (PCR) (Negative) RSV RNA Qual (PCR) (Negative) SARS-CoV-2 RNA (RT-PCR) (Negative) 08/08/25 08/08/25 08/08/25 Range/Units 13:10 14:38 16:13 WBC (4.8-10.8) X10*3/uL RBC (4.20-5.50) X10*6/uL Hgb (12.0-16.0) g/dl Hct (37.0-47.0) % MCV (80.0-98.0) fL MCH (27.0-33.0) pg MCHC (31.0-35.0) g/dl RDW (11.0-16.0) % Plt Count (160-400) X10*3/uL MPV (9.4-12.3) fL Immature Gran % (Auto) (0.0-0.4) % Neut % (Auto) (45-73) % Lymph % (Auto) (20-40) % [place] % (Auto) (2-11) % Eos % (Auto) (0-4) % Baso % (Auto) (0-2) % Lymph # (Auto) (1.2-4.9) X10*3/uL [place] # (Auto) (0.1-1.2) X10*3/uL Eos # (Auto) (0.0-0.4) X10*3/uL Baso # (Auto) (0.0-0.2) X10*3/uL Abs Immat Gran (auto) (0.00-0.03) X10*3/uL Absolute Neuts (auto) (2.0-8.3) x10*3/uL Absolute Nucleated RBC (0.0-0.012) X10*3/uL Nucleated RBC % (auto) (0.0-0.2) /100WBC PT (11.2-13.5) SEC INR (0.9-1.1) VBG pH VBG pCO2 VBG pO2 VBG HCO3 VBG O2 Saturation VBG Base Excess Sodium (135-145) mmol/L Potassium (3.3-5.1) mmol/L Chloride (96-108) mmol/L Carbon Dioxide (22-29) mmol/L Anion Gap (12-20) BUN (9-16) mg/dL Creatinine (0.5-1.4) mg/dL Estim Creat Clear Calc Estimated GFR Random Glucose (60-115) mg/dL Lactic Acid (0.5-2.0) mmol/L Lactic Acid F/U @ 2Hr 2.7 H* (0.5-2.0) mmol/L Calcium (8.4-10.2) mg/dL Magnesium (1.6-2.6) mg/dL Total Bilirubin (0.0-1.0) mg/dL AST (5-31) U/L ALT (0-31) U/L Alkaline Phosphatase (39-117) U/L Troponin I High Sens 16.7 (<3.5-17.0) ng/L NT-Pro-B Natriuret Pep (<300) pg/mL Total Protein (6.5-8.0) g/dL Albumin (3.5-5.0) g/dL Urine Color Urine Appearance Urine pH (5.0-9.0) Ur Specific Gray (1.005-1.025) Urine Protein (Neg-Trace) mg/dL Urine Glucose (UA) (Negative) mg/dL Urine Ketones (Negative) mg/dL Urine Blood (Negative) Urine Nitrite (Negative) Ur Leukocyte Esterase (Negative) Urine RBC (0-2) /HPF Urine WBC (0-5) /HPF Ur Squamous Epith Cells (0-2) /HPF Urine Bacteria (None Seen) Hyaline Casts (0-2) /LPF Influenza Type A (PCR) NEGATIVE (Negative) Influenza Type B (PCR) NEGATIVE (Negative) RSV RNA Qual (PCR) NEGATIVE (Negative) SARS-CoV-2 RNA (RT-PCR) POSITIVE A (Negative) Independent Interpretation I performed an independent interpretation of an: EKG and Plain X-Ray Radiology Impression Discussion of test interpretation with radiology: I have reviewed the radiologist's reading. Independent Historian Clinical information obtained from an independent historian. History obtained from or confirmed by: EMS External Record Review External record reviewed: Inpatient record, Office record, Outpatient record, Prior outpatient labs, Prior outpatient radiology, Primary care record and Outside ED record Tests considered The following testing was considered but not selected: As above Prescription Management I considered prescription management with: Pain Medication Chronic Conditions Patient?s care impacted by: Other (COPD) Social Determinants Patient?s care significantly limited by Social Determinants of Health including: Other Social Determinant of Health Critical Care Time Critical Care Time Critical Care Time: Yes Total Critical Care Time: 40 Attestation: I have personally provided critical care time exclusive of time spent on separately billable procedures. Time includes review of lab data, radiology results, discussion with consultants, and monitoring for potential decompensation. Intervention performed as documented. Discharge Plan Discharge Clinical Impression: COVID-19, Acute UTI, Pneumonia Prescriptions: No Action digoxin 125 mcg (0.125 mg) tablet 0.125 mg PO DAILY@0800 Qty: 90 3RF bumetanide 2 mg tablet 4 mg PO DAILY@0800 Qty: 180 3RF diltiazem HCl [Cardizem CD] 120 mg capsule,extended release 24hr 120 mg PO DAILY@0800 Qty: 90 3RF Protocol: Hold for SBP/HR < HOLD for SBP < : 90 HOLD for HR < : 60 gabapentin 300 mg capsule 600 mg PO QID Qty: 720 1RF Rx Instructions: AT 0800,1200,1800,2100 tramadol 50 mg tablet 50 mg PO Q6H Qty: 112 3RF nitrofurantoin macrocrystal 100 mg capsule 100 mg PO Q12H Qty: 14 0RF Rx Instructions: must administer with a meal/food ascorbic acid (vitamin C) 500 mg Tablet 500 mg PO DAILY@0800 thiamine HCl (vitamin B1) 100 mg Tablet 100 mg PO DAILY@0800 omeprazole 20 mg Capsule,Delayed Release(Dr/Ec) 20 mg PO DAILY@0630 Qty: 30 0RF Print Language: Spanish
[2025-08-08 12:57] LABS: MANUAL DIFF FLAG NO
[2025-08-08 12:58] LABS: Appearance Urine Clear; Glucose Urine UA Negative (Negative); PH 5.5 (5.0-9.0); Specific Gravity - Urine 1.010 (1.005-1.025); UMIC TRIGGER UACC YES
[2025-08-08 13:00] LABS: Hematocrit 50.3 % (37.0-47.0); Hemoglobin 15.0 g/dl (12.0-16.0); Imm Gran Abs Auto 0.03 X10*3/uL (0.00-0.03); Imm Gran Pct Auto 0.4 % (0.0-0.4); Lymphocytes Absolute Auto 1.0 X10*3/uL (1.2-4.9); Mean Corpuscular HGB Conc 29.8 g/dl (31.0-35.0); Mean Corpuscular Hemoglobin 25.9 pg (27.0-33.0); Mean Corpuscular Volume 86.7 fL (80.0-98.0); NRBC Abs Auto 0.000 X10*3/uL (0.0-0.012); NRBC Pct Auto 0.0 /100WBC (0.0-0.2); Platelet Count 305 X10*3/uL (160-400); Red Blood Count 5.80 X10*6/uL (4.20-5.50); White Blood Count 7.0 X10*3/uL (4.8-10.8)
[2025-08-08 13:10] LABS: INTERNATIONAL NORM RATIO 1.0 (0.9-1.1); Prothrombin Time 12.8 SEC (11.2-13.5)
[2025-08-08 13:11] LABS: Venous Blood Gas Refer to POC result
--- NOTE | 2025-08-08 13:12 | PC.NURSE ---
Pt arrives to ED via EMS from urgent care for c/o SOB. Pt reports SOB and productive cough since 08/04/25--sputum is green. She reports Hx COPD and pneumonia with baseline supplemental O2 @ 5L via NC. A&Ox3 VSS Low grade rectal temp noted. O2 sats have been steady around 95% with 5L O2 via NC. Pt arrived with brief in place and reports she is unable to sense when she needs to urinate. Straight cath performed for urine spec and Pt placed on purwick. 20g to LAC placed Blood work drawn and sent to lab. All results pending
[2025-08-08 13:13] LABS: VBG HCO3 44 mmol/L (22-26); VBG O2 % Saturation 64.0 %
[2025-08-08 13:17] LABS: Alanine Aminotransferase 40 U/L (0-31); Albumin Level 3.0 g/dL (3.5-5.0); Alkaline Phosphatase 169 U/L (39-117); Anion Gap 12 (12-20); Aspartate Amino Transferase 78 U/L (5-31); Blood Urea Nitrogen 22 mg/dL (9-16); Calcium 9.8 mg/dL (8.4-10.2); Carbon Dioxide 39 mmol/L (22-29); Chloride 88 mmol/L (96-108); Creatinine Clr Calc Pharmacy 46.9; Estimated Glomerular Filt Rate 52; Magnesium 1.9 mg/dL (1.6-2.6); Potassium 3.0 mmol/L (3.3-5.1); Sodium 136 mmol/L (135-145); Total Protein 8.3 g/dL (6.5-8.0)
[2025-08-08] MEDS: Albuterol Sulfate 2.5 MG, Albuterol/Iprat 2.5/0.5MG 3 ML 3 ML INHALE (13:24)
[2025-08-08 13:26] LABS: Troponin-I High Sensitivity 17.0 ng/L (<3.5-17.0)
[2025-08-08 13:27] LABS: UACC Culture Trigger YES
[2025-08-08 13:58] LABS: Resp Syncy Virus RNA Qual PCR NEGATIVE (Negative); SARS COV2 PCR INHOUSE POSITIVE (Negative)
[2025-08-08] MEDS: Potassium Chloride Packet 20 MEQ PACKET 60 MEQ PO (14:26)
[2025-08-08 14:54] LABS: Reflex Lactate? Lactic Acid Added
[2025-08-08 15:05] LABS: Troponin-I High Sensitivity 16.7 ng/L (<3.5-17.0)
[2025-08-08] MEDS: Potassium Chloride/H20 10 MEQ/100 ML PIGGYBACK 100 MEQ IV (15:37)
--- NOTE | 2025-08-08 16:20 | MHC.EDTECH ---
this tech arnav 2nd lactic. sent to lab
[2025-08-08 16:45] LABS: ~Lactic Acid-LAB USE ONLY 2.7 mmol/L (0.5-2.0)
[2025-08-08 16:53] LABS: NT Pro B Type Natriuretic Pept 246.5 pg/mL (<300)
--- NOTE | 2025-08-08 17:34 | PM.IMHP ---
History of Present Illness Date of Service: 08/08/25 Chief Complaint: shortness of breath 74 years old woman with past medical history significant for obesity, COPD on home oxygen, atrial fibrillation on Eliquis, AMY on CPAP and essential hypertension. She has been short of breath and coughing for 4 to 5 days. She went to an urgent care today on [place] and found to have O2 sat of 85 on O2. Both Xray and CT of chest suggestive of PNA. WBC is normal. No fever. UA is positive for UTI. ED treatment: Ceftriaxone and Azithromycin. Presently O2 93 on 2L Review of Systems Review of Systems: Gen: no fever Resp: + sob, + cough CV: no chest, no GARCIA, no leg edema GI: No n/v, no abd pain Neuro: No confusion Yes all other systems are reviewed and are negative [facility] Medical History Persistent atrial fibrillation Pneumonia Morbid obesity Atrial fibrillation with rapid ventricular response Constipation Lung cancer Pneumonia COPD with acute exacerbation COPD (chronic obstructive pulmonary disease) Carpal tunnel syndrome, left Nerve pain High blood pressure Family History Mother No problems noted. Father No problems noted. Surgical History H/O: hysterectomy Social History Household Members: Spouse Housing: [facility] Housing Other:: [facility] Do you presently have visiting nurse or other home services: Yes ([facility]) Alcohol intake: never Patient Tobacco Use Status: Former Tobacco user Tobacco use type: Cigarette Cigarette Packs Per Day: 1 Cigarettes Per Day: 20.0 e-Cigarette/Vaping Use: Former Use Second Hand Smoke Exposure: No Currently Displaying Signs/Symptoms of Drug Intoxication Withdrawal: No Have you been hit, kicked, punched, or otherwise hurt by someone within the past year? If so, by whom?: No Do you feel safe in your current relationship?: Yes Is there a partner from a previous relationship who is making you feel unsafe now?: No Are you made to feel afraid or neglected: No Advance Directives: Yes Advance Directives on File: Yes Advance Directives Date on File: 03/23/23 Do you have a plan to hurt others: No Plan Recently lost weight without trying: No How much weight loss: Not applicable Eating poorly because of decreased appetite: No Nutrition screen score: 0 Nutrition Risks: No Nutritional Risk Patient : No : No Poor oral hygiene: No service: No Current occupational status: retired Current occupation: left handed Cognitive needs: Yes (wheelchair) Hearing needs: No Vision needs: No Meds Allergies Allergy/AdvReac Type Severity Reaction Status Date / Time prednisone Allergy Mild Unknown Verified 08/08/25 12:55 Penicillin Allergy Severe rash Uncoded 08/08/25 12:55 Active Medications: Current Medications Azithromycin 500 mg/ Sodium (Chloride) 250 mls @ 125 mls/hr IV ONCE ONE Stop: 08/08/25 17:51 Last Admin: 08/08/25 16:46 Dose: 125 mls/hr Home Medications ?Medication ?Instructions ?Recorded ?Confirmed ?Last Taken ?Type ascorbic acid (vitamin C) 500 mg 500 mg PO DAILY@0800 08/18/23 08/08/25 08/08/25 History tablet thiamine HCl (vitamin B1) 100 mg 100 mg PO DAILY@0800 08/18/23 08/08/25 08/08/25 History tablet ketorolac 0.5 % eye drops 1 drp ophthalmic-Left BID 08/08/25 08/08/25 08/08/25 History Physical Exam Vital Signs and Narrative: Vital Signs: Last Vital Signs Temp 97.9 F 08/08/25 16:19 Pulse 72 08/08/25 16:19 Resp 18 08/08/25 16:19 BP 114/54 L 08/08/25 16:19 Pulse Ox 93 08/08/25 16:19 O2 Del Method Nasal Cannula 08/08/25 16:19 O2 Flow Rate 2 08/08/25 16:19 Oxygen Flow Rate 5 08/08/25 12:53 BMI result Body Mass Index 31.8 Results Labs 08/08/25 12:47 08/09/25 06:54 Labs: Laboratory Results - last 24 hr 08/08/25 08/08/25 08/08/25 12:47 12:48 12:56 MCV 86.7 MCH 25.9 L MCHC 29.8 L RDW 14.8 Plt Count 305 MPV 9.5 Immature Gran % (Auto) 0.4 Neut % (Auto) 77.0 H Lymph % (Auto) 13.7 L [place] % (Auto) 8.0 Eos % (Auto) 0.6 Baso % (Auto) 0.3 Lymph # (Auto) 1.0 L [place] # (Auto) 0.6 Eos # (Auto) 0.0 Baso # (Auto) 0.0 Abs Immat Gran (auto) 0.03 Absolute Neuts (auto) 5.4 Absolute Nucleated RBC 0.000 Nucleated RBC % (auto) 0.0 PT 12.8 INR 1.0 VBG pH Cancelled 7.46 H VBG pCO2 Cancelled 62 VBG pO2 Cancelled 43 VBG HCO3 Cancelled 44 H VBG O2 Saturation Cancelled 64.0 VBG Base Excess Cancelled 16.3 Anion Gap 12 Estim Creat Clear Calc 46.9 Estimated GFR 52 Random Glucose 171 H Lactic Acid 2.8 H* Lactic Acid F/U @ 2Hr Calcium 9.8 Magnesium 1.9 Total Bilirubin 0.4 AST 78 H ALT 40 H Alkaline Phosphatase 169 H Troponin I High Sens 17.0 D NT-Pro-B Natriuret Pep 246.5 Total Protein 8.3 H Albumin 3.0 L Urine Color Yellow Urine Appearance Clear Urine pH 5.5 Ur Specific [place] 1.010 Urine Protein Trace Urine Glucose (UA) Negative Urine Ketones Negative Urine Blood Negative Urine Nitrite Positive H Ur Leukocyte Esterase Trace H Urine RBC 0-2 Urine WBC 0-5 Ur Squamous Epith Cells 0-2 Urine Bacteria 4+ Hyaline Casts 0-2 Influenza Type A (PCR) Influenza Type B (PCR) RSV RNA Qual (PCR) SARS-CoV-2 RNA (RT-PCR) 08/08/25 08/08/25 08/08/25 13:10 14:38 16:13 MCV MCH MCHC RDW Plt Count MPV Immature Gran % (Auto) Neut % (Auto) Lymph % (Auto) [place] % (Auto) Eos % (Auto) Baso % (Auto) Lymph # (Auto) [place] # (Auto) Eos # (Auto) Baso # (Auto) Abs Immat Gran (auto) Absolute Neuts (auto) Absolute Nucleated RBC Nucleated RBC % (auto) PT INR VBG pH VBG pCO2 VBG pO2 VBG HCO3 VBG O2 Saturation VBG Base Excess Anion Gap Estim Creat Clear Calc Estimated GFR Random Glucose Lactic Acid Lactic Acid F/U @ 2Hr 2.7 H* Calcium Magnesium Total Bilirubin AST ALT Alkaline Phosphatase Troponin I High Sens 16.7 NT-Pro-B Natriuret Pep Total Protein Albumin Urine Color Urine Appearance Urine pH Ur Specific [place] Urine Protein Urine Glucose (UA) Urine Ketones Urine Blood Urine Nitrite Ur Leukocyte Esterase Urine RBC Urine WBC Ur Squamous Epith Cells Urine Bacteria Hyaline Casts Influenza Type A (PCR) NEGATIVE Influenza Type B (PCR) NEGATIVE RSV RNA Qual (PCR) NEGATIVE SARS-CoV-2 RNA (RT-PCR) POSITIVE A Imaging Radiologist's Impressions: Impressions Chest X-Ray 08/08/25 13:35 IMPRESSION: Left basilar density could represent atelectasis and/or pneumonia. Electronically signed by: Maged Osuna MD 08/08/2025 01:45 PM EST RP Chest CT 08/08/25 14:50 IMPRESSION: Study mildly limited by respiratory motion artifact. 1. Left lower lobe consolidation consistent with pneumonia. No effusions. 2. Patchy peribronchovascular opacities in the posterior right lower lobe also suspicious for pneumonic involvement. 3. Moderate centrilobular emphysema. Smooth interlobular septal thickening diffusely suggesting a degree of fluid overload/interstitial edema. 4. More confluent masslike scarring in the left medial apex, and given appearance, possibility of DEVELOPING NEOPLASM in this region should be considered. Consider further imaging with PET/CT. 5. Cardiomegaly. Enlarged main pulmonary artery suggesting pulmonary hypertension. 5. Hepatomegaly with diffuse fatty infiltration. 6. Ancillary findings as discussed in the body of the report. Electronically signed by: Domenic Aguilar MD 08/08/2025 03:31 PM EST RP Assessment and Plan (1) COPD (chronic obstructive pulmonary disease): Qualifiers: COPD type: unspecified COPD Qualified Code(s): J44.9 - Chronic obstructive pulmonary disease, unspecified Status: Acute (2) Acute respiratory failure with hypoxia: Status: Acute (3) Pneumonia due to COVID-19 virus: Status: Acute Plan 74/F with copd on home O2 here with sob, cough and found to have covid with possible superimposed bacterial PNA Covid PNA -supportive care -O2 as needed, goal of O2 88 to 92 -Ceftriaxone and Azithro to cover for PNA COPD exacerbation d/t above -bronchodilator -Prednisone UTI, Ceftriaxone as above Hypokalemia, replaced, repeat tomorrow Acute Lactic Acidosis, not due to sepsis, possibly from hypoxia trending down Elevated LFTs, acute on chronic, monitor chronic HFpEF -compensated AMY -in the past non-compliant with cpap chronic AF - digoxin, diltiazem -not on anticoagulation chronic anemia - H+H stable, monitor focal thickening of bladder - outpt Urology eval HTN - diltiazem chronic pain - tramadol + gabapentin Full code DVT prophylaxis:Lovenox Quality Stroke Does the patient have a stroke diagnosis?: No VTE Prior VTE?: No VTE Risk Level:: Medical - moderate - high VTE Device Contraindication: Treatment Not Indicated VTE Drug Contraindication: N/A - Med Ordered
--- OUTSIDE RECORDS SUMMARY | 2025-08-08 17:57 | XMS_ITS | Clinical Summary ---
Author Organization [facility] Facility Address [address] [place] [id number] Care Team Providers Care Special Technical Operations Officer Name Role Phone Unavailable Primary Care Provider [...] age to complete this topic Insurance Medicare [facility] Medicare [facility]ly [facility]
--- NOTE | 2025-08-08 18:09 | HO.NURTONUR ---
74 yrs female admitted for COPD, acute respiratory failure w/hypoxia, and pneumonia d/t COVID. Pt comes to ED today from urgent care with c/o SOB since 08/04/25 A&Ox3 VSS 5L O2 via NC at baseline. Received IVF, IV abx and potassium replacement in ED. Seen by RT for eval/tx 20g LAC [place] in place.
[2025-08-08 18:19] LABS: Reflex Lactate? 2 Y
--- NOTE | 2025-08-08 18:40 | PHA.MEDREC ---
Pharmacy Consult ? Medication Reconciliation Pharmacy has completed the medication reconciliation. Spoke to patient to confirm medication list. She has a written home med list with her. She confirmed she is NOT taking primidone 50 mg tablets. She is taking tramadol 50 mg q6h on scheduled. She is still taking the nitrofurantoin 100 mg q12h. She also takes an allergy pill that she buys from [employer] but unable to name the medication nor the dose. Last dose of medications was this morning 08/08/25 except the nitrofurantoin was yesterday.
[2025-08-08 20:16] LABS: ~Lactic Acid-LAB USE ONLY 2.4 mmol/L (0.5-2.0)
[2025-08-09 03:44] VITALS: BP 118/60; PULSE 70; RESP 18; TEMP 36.7; O2SAT 94
--- NOTE | 2025-08-09 06:39 | HO.SKINPHOTO ---
Location: Category: Stage: Length: Width: Depth: cm Location: Category: Stage: Length: Width: Depth: cm Location: Category: Stage: Length: Width: Depth: cm Location: Category: Stage: Length: Width: Depth: cm Location: Category: Stage: Length: Width: Depth: cm Location: Category: Stage: Length: Width: Depth: cm
[2025-08-09 08:00] VITALS: BP 116/57; PULSE 59; RESP 19; TEMP 36.6; O2SAT 95
[2025-08-09 08:00] LABS: Anion Gap 12 (12-20); Blood Urea Nitrogen 18 mg/dL (9-16); Carbon Dioxide 38 mmol/L (22-29); Chloride 94 mmol/L (96-108); Creatinine Clr Calc Pharmacy 57.9; Estimated Glomerular Filt Rate > 60; Potassium 3.4 mmol/L (3.3-5.1); Sodium 141 mmol/L (135-145)
[2025-08-09 08:15] LABS: Calcium 9.1 mg/dL (8.4-10.2)
[2025-08-09 09:44] VITALS: BP 125/59; PULSE 71
[2025-08-09] MEDS: 0.9 % Sodium Chloride Flush 3 ML SYRINGE IVFLUSH ×3 (09:46→21:33)
[2025-08-09] MEDS: dilTIAZem HCL CD 120 MG CAP.ER.DEG PO (09:46)
[2025-08-09] MEDS: Ketorolac Tromethamine 0.5% Op 5 ML DROPS 1 DROP EYE-LEFT ×2 (09:50→20:16)
--- NOTE | 2025-08-09 10:28 | P.PNIM_ITS ---
Subjective Subjective Date of Service: 08/09/25 Interval History: c/o sore throat, less sob no fever, no hypoxia Physical Exam 2 Vital Signs: Vital Signs: Last Vital Signs Temp 97.8 F 08/09/25 08:00 Pulse 71 08/09/25 09:44 Resp 19 08/09/25 08:00 BP 125/59 L 08/09/25 09:44 Pulse Ox 95 08/09/25 08:00 O2 Del Method Room Air 08/09/25 08:00 O2 Flow Rate 5 08/09/25 03:44 Oxygen Flow Rate 5 08/08/25 12:53 BMI result Body Mass Index 32.1 Const: Other: General: AO X 3, no acute distress Resp: CTA bilateral CVS: S1,S2,RRR GI: +BS, NT, no distention Skin: No rash Neuro: motor grossly intact Psych: appropriate affect Objective Data Active Medications Acetaminophen (Acetaminophen 325 Mg Tablet) 650 mg PO Q6H PRN PRN Reason: Pain, Mild 1-3,fever,headache Ascorbic Acid (Ascorbic Acid 500 Mg Tablet) 500 mg PO DAILY@0800 PENDING SALE TO [facility] Last Admin: 08/09/25 09:46 Dose: 500 mg Documented By: IRIS Bumetanide (Bumetanide 1 Mg Tablet) 4 mg PO DAILY@0800 PENDING SALE TO [facility]; Protocol Last Admin: 08/09/25 09:45 Dose: 4 mg Documented By: IRIS Calcium Carbonate (Calcium Carbonate 750 Mg Tab.Chew) 750 mg PO Q4H PRN PRN Reason: Heartburn Digoxin (Digoxin 0.125 Mg Tablet) 0.125 mg PO DAILY@0800 PENDING SALE TO [facility]; Protocol Last Admin: 08/09/25 09:46 Dose: 0.125 mg Documented By: IRIS Diltiazem HCl (Diltiazem Hcl Cd 120 Mg Cap.Er.Deg) 120 mg PO DAILY@0800 PENDING SALE TO [facility]; Protocol Last Admin: 08/09/25 09:46 Dose: 120 mg Documented By: IRIS Enoxaparin Sodium (Enoxaparin Sodium 40 Mg/0.4 Ml Syringe) 40 mg SUBCUT Q24H PENDING SALE TO [facility] Last Admin: 08/08/25 19:37 Dose: 40 mg Documented By: MARILEE Gabapentin (Gabapentin 300 Mg Capsule) 600 mg PO QID PENDING SALE TO [facility] Last Admin: 08/09/25 09:45 Dose: 600 mg Documented By: IRIS Ketorolac Tromethamine (Ketorolac Tromethamine 0.5% Op 5 Ml Drops) 1 drop EYE- LEFT BID PENDING SALE TO [facility] Last Admin: 08/09/25 09:50 Dose: 1 drop Documented By: IRIS Magnesium Hydroxide (Milk Of Magnesia 30 Ml Oral.Susp) 30 ml PO DAILY PRN PRN Reason: Constipation Melatonin (Melatonin 3 Mg Tablet) 6 mg PO BEDTIME PRN PRN Reason: Insomnia Nitrofurantoin Macrocrystals (Nitrofurantoin Monohyd/M-Cryst 100 Mg Capsule) 100 mg PO BID PENDING SALE TO [facility] Last Admin: 08/09/25 09:46 Dose: 100 mg Documented By: IRIS Omeprazole (Omeprazole 20 Mg Capsule.Dr) 20 mg PO DAILY@0630 PENDING SALE TO [facility] Last Admin: 08/09/25 06:22 Dose: 20 mg Documented By: LIZ Ondansetron HCl (Ondansetron Hcl 4 Mg/2 Ml Vial) 4 mg IVPUSH Q8H PRN PRN Reason: Nausea and Vomiting Polyethylene Glycol (Polyethylene Glycol 3350 17 Gm Powd.Pack) 17 gm PO DAILY PRN PRN Reason: Constipation Sodium Chloride (0.9 % Sodium Chloride Flush 3 Ml Syringe) 3 ml IVFLUSH QSHIFT PENDING SALE TO [facility] Last Admin: 08/09/25 09:46 Dose: 3 ml Documented By: IRIS Thiamine HCl (Thiamine Hcl 100 Mg Tablet) 100 mg PO DAILY@0800 PENDING SALE TO [facility] Last Admin: 08/09/25 09:45 Dose: 100 mg Documented By: IRIS Tramadol HCl (Tramadol Hcl 50 Mg Tablet) 50 mg PO QID PENDING SALE TO [facility] Last Admin: 08/09/25 09:45 Dose: 50 mg Documented By: IRIS Labs 08/08/25 12:47 08/09/25 06:54 Labs: Laboratory Results - last 24 hr 08/08/25 08/08/25 08/08/25 12:47 12:48 12:56 MCV 86.7 MCH 25.9 L MCHC 29.8 L RDW 14.8 Plt Count 305 MPV 9.5 Immature Gran % (Auto) 0.4 Neut % (Auto) 77.0 H Lymph % (Auto) 13.7 L Hughes % (Auto) 8.0 Eos % (Auto) 0.6 Baso % (Auto) 0.3 Lymph # (Auto) 1.0 L Hughes # (Auto) 0.6 Eos # (Auto) 0.0 Baso # (Auto) 0.0 Abs Immat Gran (auto) 0.03 Absolute Neuts (auto) 5.4 Absolute Nucleated RBC 0.000 Nucleated RBC % (auto) 0.0 PT 12.8 INR 1.0 VBG pH Cancelled 7.46 H VBG pCO2 Cancelled 62 VBG pO2 Cancelled 43 VBG HCO3 Cancelled 44 H VBG O2 Saturation Cancelled 64.0 VBG Base Excess Cancelled 16.3 Anion Gap 12 Estim Creat Clear Calc 46.9 Estimated GFR 52 Random Glucose 171 H Lactic Acid 2.8 H* Lactic Acid F/U @ 2Hr Lactic Acid F/U @ 4Hr Calcium 9.8 Magnesium 1.9 Total Bilirubin 0.4 AST 78 H ALT 40 H Alkaline Phosphatase 169 H Troponin I High Sens 17.0 D NT-Pro-B Natriuret Pep 246.5 Total Protein 8.3 H Albumin 3.0 L Urine Color Yellow Urine Appearance Clear Urine pH 5.5 Ur Specific [place] 1.010 Urine Protein Trace Urine Glucose (UA) Negative Urine Ketones Negative Urine Blood Negative Urine Nitrite Positive H Ur Leukocyte Esterase Trace H Urine RBC 0-2 Urine WBC 0-5 Ur Squamous Epith Cells 0-2 Urine Bacteria 4+ Hyaline Casts 0-2 Influenza Type A (PCR) Influenza Type B (PCR) RSV RNA Qual (PCR) SARS-CoV-2 RNA (RT-PCR) 08/08/25 08/08/25 08/08/25 13:10 14:38 16:13 MCV MCH MCHC RDW Plt Count MPV Immature Gran % (Auto) Neut % (Auto) Lymph % (Auto) Hughes % (Auto) Eos % (Auto) Baso % (Auto) Lymph # (Auto) Hughes # (Auto) Eos # (Auto) Baso # (Auto) Abs Immat Gran (auto) Absolute Neuts (auto) Absolute Nucleated RBC Nucleated RBC % (auto) PT INR VBG pH VBG pCO2 VBG pO2 VBG HCO3 VBG O2 Saturation VBG Base Excess Anion Gap Estim Creat Clear Calc Estimated GFR Random Glucose Lactic Acid Lactic Acid F/U @ 2Hr 2.7 H* Lactic Acid F/U @ 4Hr Calcium Magnesium Total Bilirubin AST ALT Alkaline Phosphatase Troponin I High Sens 16.7 NT-Pro-B Natriuret Pep Total Protein Albumin Urine Color Urine Appearance Urine pH Ur Specific [place] Urine Protein Urine Glucose (UA) Urine Ketones Urine Blood Urine Nitrite Ur Leukocyte Esterase Urine RBC Urine WBC Ur Squamous Epith Cells Urine Bacteria Hyaline Casts Influenza Type A (PCR) NEGATIVE Influenza Type B (PCR) NEGATIVE RSV RNA Qual (PCR) NEGATIVE SARS-CoV-2 RNA (RT-PCR) POSITIVE A 08/08/25 08/09/25 19:37 06:54 MCV MCH MCHC RDW Plt Count MPV Immature Gran % (Auto) Neut % (Auto) Lymph % (Auto) Hughes % (Auto) Eos % (Auto) Baso % (Auto) Lymph # (Auto) Hughes # (Auto) Eos # (Auto) Baso # (Auto) Abs Immat Gran (auto) Absolute Neuts (auto) Absolute Nucleated RBC Nucleated RBC % (auto) PT INR VBG pH VBG pCO2 VBG pO2 VBG HCO3 VBG O2 Saturation VBG Base Excess Anion Gap 12 Estim Creat Clear Calc 57.9 Estimated GFR > 60 Random Glucose 100 Lactic Acid Lactic Acid F/U @ 2Hr Lactic Acid F/U @ 4Hr 2.4 H* Calcium 9.1 D Magnesium Total Bilirubin AST ALT Alkaline Phosphatase Troponin I High Sens NT-Pro-B Natriuret Pep Total Protein Albumin Urine Color Urine Appearance Urine pH Ur Specific [place] Urine Protein Urine Glucose (UA) Urine Ketones Urine Blood Urine Nitrite Ur Leukocyte Esterase Urine RBC Urine WBC Ur Squamous Epith Cells Urine Bacteria Hyaline Casts Influenza Type A (PCR) Influenza Type B (PCR) RSV RNA Qual (PCR) SARS-CoV-2 RNA (RT-PCR) Assessment and Plan (1) Paroxysmal A-fib: Status: Acute (2) Pneumonia due to COVID-19 virus: Status: Acute Plan 74/F with copd on home O2 here with sob, cough and found to have covid with possible superimposed bacterial PNA Covid PNA -supportive care -O2 as needed, goal of O2 88 to 92 -Ceftriaxone and Azithro to cover for PNA COPD exacerbation d/t above -bronchodilator -hold steroid, allergic to prednisone and doing better now, UTI, Ceftriaxone as above HypOkalemia, replaced k Acute Lactic Acidosis, not due to sepsis, possibly from hypoxia trending down Elevated LFTs, acute on chronic, monitor chronic HFpEF -compensated AMY -in the past non-compliant with cpap chronic AF - digoxin, diltiazem -not on anticoagulation chronic anemia - H+H stable, monitor focal thickening of bladder - outpt Urology eval HTN - diltiazem chronic pain - tramadol + gabapentin Full code DVT prophylaxis:Lovenox Quality Stroke Does the patient have a stroke diagnosis?: No VTE Prior VTE?: No VTE Risk Level:: Medical - moderate - high VTE Device Contraindication: Treatment Not Indicated VTE Drug Contraindication: N/A - Med Ordered
[2025-08-09 11:55] VITALS: BP 115/61; PULSE 84; RESP 18; TEMP 36.6; O2SAT 94
--- NOTE | 2025-08-09 13:01 | MHC.CM.PN ---
IMM GIVEN 08/09. THIS CM MET WITH PATIENT, SHE STATES SHE LIVES AT HOME WITH HER . PATIENT HAS 2 HOME HEALTH AIDS THAT COME TO HELP HER TWICE DAILY. PATIENT HAS HOME O2 THROUGH [facility], AND HAS A WHEELCHAIR, WALKER, AND CANE. PATIENT STATES SHE WILL NEED TO GO HOME VIA BLS AT DISCHARGE. HCP ON FILE AND VERIFIED. PCP: DR. PATRICIO MANNING
[2025-08-09] MEDS: guaiFENesin 100 MG/5 ML 5 ML LIQUID PO (13:42)
[2025-08-09 15:57] VITALS: BP 121/63; PULSE 60; RESP 14; TEMP 36.3; O2SAT 92
[2025-08-09] MEDS: Throat Lozenge, Medicated LOZENGE 1 LOZENGE MUCOUS MEM (18:07)
[2025-08-09 19:26] VITALS: BP 119/56; PULSE 80; RESP 18; TEMP 36.3; O2SAT 94
[2025-08-10] VITALS: BP 129/66; PULSE 82; RESP 18; TEMP 36.4; O2SAT 94
[2025-08-10 03:36] VITALS: BP 118/60; PULSE 65; RESP 18; TEMP 36; O2SAT 92
[2025-08-10 08:00] VITALS: BP 123/59; PULSE 75; RESP 20; TEMP 36.6; O2SAT 95
[2025-08-10] MEDS: dilTIAZem HCL CD 120 MG CAP.ER.DEG PO (09:11)
[2025-08-10] MEDS: Ketorolac Tromethamine 0.5% Op 5 ML DROPS 1 DROP EYE-LEFT (09:15)
--- NOTE | 2025-08-10 11:11 | P.DS_ITS ---
DS: Providers Provider Date of Service: 08/10/25 Date of admission: 08/08/25 18:05 Date of discharge: 08/10/25 Primary care physician: Sydni Matthews MD Consults: 08/09/25 05:47 Consult to Wound Care Routine Consulting Provider: [facility] Wound Care Management Reason for consultation: skin abrasion on buttocks DS: Diagnosis Discharge Diagnosis (1) Paroxysmal A-fib: Status: Acute (2) Pneumonia due to COVID-19 virus: Status: Acute DS: Summary Hospital Course Hospital Course: admission hpi Chief Complaint: shortness of breath 74 years old woman with past medical history significant for obesity, COPD on home oxygen, atrial fibrillation on Eliquis, AMY on CPAP and essential hypertension. She has been short of breath and coughing for 4 to 5 days. She went to an urgent care today on [place] and found to have O2 sat of 85 on O2. Both Xray and CT of chest suggestive of PNA. WBC is normal. No fever. UA is positive for UTI. ED treatment: Ceftriaxone and Azithromycin. Presently O2 93 on 2L hospital course: 74/F with copd on home O2 here with sob, cough and found to have covid with possible superimposed bacterial PNA, was reported to be hypoxic at urgent care but has not been hypoxic here, she is on oxygen at home and has been stable without need for increasing O2. Pneumonia has been treated with Ceftriaxone and Zithromycin. Steroid was considered but uiltimately not given given no hypoxia, and no wheezing. Covid was treated symptomatically, she's doing better and will be discharged home with to complete course of Augmentin which should also covered enterococcus/streptococcus in the urine. COPD exacerbation d/t above -bronchodilator -hold steroid, allergic to prednisone and doing better now with no wheezing UTI, cutlrure growing streptococcus/enterococcus HypOkalemia, replaced and resolved. Acute Lactic Acidosis, not due to sepsis, possibly from hypoxia trending down Elevated LFTs, acute on chronic, monitor on out patient basis. Dispo home today Quality: Safe Use of Opioids Does Pt have an Active Cancer Diagnosis on the Problem List?: No Quality: Stroke Does the patient have a stroke diagnosis?: No Physical Exam Exam: Exam: General: AO X 3, no acute distress Resp: CTA bilateral CVS: S1,S2,RRR GI: +BS, NT, no distention Skin: No rash Neuro: motor grossly intact Psych: appropriate affect Vital Signs: Vital Signs: Last Vital Signs Temp 97.8 F 08/10/25 08:00 Pulse 75 08/10/25 08:00 Resp 20 08/10/25 08:00 BP 123/59 L 08/10/25 08:00 Pulse Ox 95 08/10/25 08:00 O2 Del Method Nasal Cannula 08/10/25 08:00 O2 Flow Rate 3 08/10/25 08:00 Oxygen Flow Rate 5 08/08/25 12:53 BMI result Body Mass Index 32.1 DS: Data Data Completed and Pending Completed studies during hospitalization [Text1]: Procedures Insertion of Infusion Device into Superior Vena Cava, Percutaneous Approach (03/29/23) Introduction of Vasopressor into Central Vein, Percutaneous Approach (03/29/23) Transfusion of Nonautologous Red Blood Cells into Peripheral Vein, Percutaneous Approach (08/18/23) Ultrasonography of Superior Vena Cava, Guidance (03/29/23) Labs on day of discharge: Preliminary micro results at discharge 08/08/25 14:38 Urine Culture - Preliminary Urine clean catch - Clean Catch Midstream Gram negative karmen Enterococcus/Streptococcus sp 08/08/25 14:38 Blood Culture - Preliminary Blood - Venous No growth after 24 hours. 08/08/25 14:23 Blood Culture - Preliminary Blood - Venous No growth after 24 hours. Discharge Plan Discharge Anticipated Discharge Date/Time: 08/10/25 11:04 Patient Disposition: Home, Self-Care Discharge Diagnosis: covid pneumonia, uti Referrals: Sydni Matthews MD [Primary Care Provider, Endocrinology] - 1 Week Discharge Medications: New amoxicillin-pot clavulanate 875-125 mg tablet 1 tab PO BID Qty: 10 0RF Continued digoxin 125 mcg (0.125 mg) tablet 0.125 mg PO DAILY@0800 Qty: 90 3RF bumetanide 2 mg tablet 4 mg PO DAILY@0800 Qty: 180 3RF diltiazem HCl [Cardizem CD] 120 mg capsule,extended release 24hr 120 mg PO DAILY@0800 Qty: 90 3RF Protocol: Hold for SBP/HR < HOLD for SBP < : 90 HOLD for HR < : 60 gabapentin 300 mg capsule 600 mg PO QID Qty: 720 1RF Rx Instructions: AT 0800,1200,1800,2100 tramadol 50 mg tablet 50 mg PO Q6H Qty: 112 3RF nitrofurantoin macrocrystal 100 mg capsule 100 mg PO Q12H Qty: 14 0RF Rx Instructions: must administer with a meal/food ascorbic acid (vitamin C) 500 mg Tablet 500 mg PO DAILY@0800 thiamine HCl (vitamin B1) 100 mg Tablet 100 mg PO DAILY@0800 omeprazole 20 mg Capsule,Delayed Release(Dr/Ec) 20 mg PO DAILY@0630 Qty: 30 0RF ketorolac 0.5 % drops 1 drp ophthalmic-Left BID Discharge Orders: Discharge Order (Routine); Ordered 08/10/25 Ordered By: Kermit Graham Diet: Advance to usual diet Activity on Discharge: As tolerated Stand Alone Forms: Patient Portal Discharge page Print Language: Luxembourgish Care Plan Goals: recovery from covid and uti Health Concerns: covid pneumonia uti Plan of Treatment: take Augmentin as recommended and follow up with your Doctor in a week Assessment: see above
--- NOTE | 2025-08-10 11:34 | MHC.CM.PN ---
PATIENT IS MEDICALLY CLEARED FOR DISCHARGE HOME/RESUME [employer] AND HOME O2, SHE WILL TRANSPORT HOME VIA BLS TODAY.
== END 2025-08-10 14:39 | disposition home or self-care (01) | DRG 177 ==
LOC: HO.ED 17:09 → HO.EDOVER 18:09 → HO.S3 19:03 → HO.IMC 21:25
PROVIDERS: Physician Assistant; Physician Assistant Medical; Admitting Provider Internal Medicine; Emergency Provider Emergency Medicine; PCP Internal Medicine; Visit Provider Internal Medicine
DX: U07.1 COVID-19 (principal); J12.82 Pneumonia due to coronavirus disease 2019; J44.0 Chronic obstructive pulmonary disease with (acute) lower respiratory infection; J44.1 Chronic obstructive pulmonary disease with (acute) exacerbation; N39.0 Urinary tract infection, site not specified; I50.32 Chronic diastolic (congestive) heart failure; E87.21 Acute metabolic acidosis; I11.0 Hypertensive heart disease with heart failure; D64.9 Anemia, unspecified; G47.33 Obstructive sleep apnea (adult) (pediatric); B95.2 Enterococcus as the cause of diseases classified elsewhere; I48.0 Paroxysmal atrial fibrillation; E87.6 Hypokalemia; Z87.891 Personal history of nicotine dependence; Z79.899 Other long term (current) drug therapy
CPT/HCPCS: 36415; 71045; 71250; 80048; 80053; 81001; 82803; 83605; 83735; 83880; 84484; 85025; 85610; 87040; 87086; 87088; 87186; 87637; 93005; 94640; 99285; J0456; J0696; J1650; J3480

== ENCOUNTER → 2025-08-08 12:32 | Outpatient (BNV) | payer MEDICARE, OTHER, SELFPAY | PROVIDERS: Admitting Provider Internal Medicine; Emergency Provider Emergency Medicine; PCP Internal Medicine; Visit Provider Internal Medicine | DX: I49.3 Ventricular premature depolarization (principal) | CPT/HCPCS: 93010 ==

== ENCOUNTER → 2025-08-08 12:32 | Outpatient (BNV) | payer MEDICARE, OTHER, SELFPAY | PROVIDERS: PCP Internal Medicine; Visit Provider Radiology Diagnostic Radiology | DX: J43.2 Centrilobular emphysema (principal); I51.7 Cardiomegaly; K76.0 Fatty (change of) liver, not elsewhere classified; R16.0 Hepatomegaly, not elsewhere classified | CPT/HCPCS: 71045; 71250 ==

== ENCOUNTER → 2025-08-08 18:05 | Outpatient (BNV) | payer MEDICARE, OTHER, SELFPAY | PROVIDERS: Admitting Provider Internal Medicine; Emergency Provider Emergency Medicine; PCP Internal Medicine; Visit Provider Internal Medicine | DX: U07.1 COVID-19 (principal); J12.82 Pneumonia due to coronavirus disease 2019; J44.1 Chronic obstructive pulmonary disease with (acute) exacerbation; J96.01 Acute respiratory failure with hypoxia; I48.0 Paroxysmal atrial fibrillation | CPT/HCPCS: 99223; 99232 ==

== ENCOUNTER 2025-09-02 10:03 | Outpatient (AMB) | payer MEDICARE, OTHER, SELFPAY ==
--- NOTE | 2025-09-02 10:06 | A.OFFPC_ITS ---
Vital Signs 09/02/25 10:14 BMI Reason not done Palliative Care Patient BP 106/53 L Blood Pressure Location Lt brachial Position Sitting Respiration 16 Pulse 68 Pulse Source Pulse Oximeter Temp 97.6 F Temp Source Oral Pulse Oximetry (%) 95 Oxygen Delivery Method Nasal Cannula Intake Visit Reasons: DM Intake Note: patient here for DM follow up Pediatric Radiologist Required: No Is last menstrual period known: No Post menopausal: No Patient : No Allergies prednisone Allergy (Mild, Verified 09/02/25 10:11) Unknown Penicillin Allergy (Severe, Uncoded 09/02/25 10:11) rash Medication List - Last Reconciled 09/02/25 by Sydni Matthews MD ascorbic acid (vitamin C) 500 mg PO DAILY@0800 bumetanide 4 mg (2 x 2 mg) PO DAILY@0800 digoxin 0.125 mg PO DAILY@0800 diltiazem HCl CD (Cardizem CD) 120 mg See Protocol PO DAILY@0800 gabapentin 600 mg (2 x 300 mg) PO QID ketorolac 0.5% 1 drp ophthalmic-Left BID nitrofurantoin macrocrystal 100 mg PO Q12H omeprazole 20 mg PO DAILY@0630 thiamine HCl (vitamin B1) 100 mg PO DAILY@0800 tramadol 50 mg PO Q6H Tobacco use date assessed: 09/02/25 Fall risk assessment: No Falls in past year Last assessed Fall Risk: 09/02/25 Dental Screening Dental Screen Date: 09/02/25 Did you have a dental visit in the last 12 months?: No Did you have a dental problem in the last 6 months where you did not have access to dental care?: No Was dental information given to patient?: Yes HPI HPI Comments History of Present Illness Details Nicole Goldstein is a 74 years old woman with past medical history significant for hypertension, afib on AC, obesity, COPD on home oxygen, AMY on CPAP presenting for hospital discharge follow up Hospitalized 08/08/25-08/10/2025 at . 74/F with copd on home O2 here with sob, cough and found to have covid with possible superimposed bacterial PNA, was reported to be hypoxic at urgent care but has not been hypoxic here, she is on oxygen at home and has been stable without need for increasing O2. Pneumonia has been treated with Ceftriaxone and Zithromycin. Steroid was considered but uiltimately not given given no hypoxia, and no wheezing. Covid was treated symptomatically, she's doing better and will be discharged home with to complete course of Augmentin which should also covered enterococcus/streptococcus in the urine. Has home [employer] now which is greatly beneficial. s/p cataract on jul 21 & aug 18 Dr Snyder at [facility] under local anesthesia. CV: On bumex, diltiazem, digoxin. Blood pressure is well controlled. She was referred to cardiology but does not have an appt scheduled. Recent normal nuclear stress test. Echocardiogram March 2023 EF 70%, diastolic dysfunction. Denies chest pain. No increase in shortness of breath. COPD on home o2. History of ROJAS lung carcinoma-s/p radiation therapy, Dr Zamora. Prediabetes/diabetes: A1C today is 6.1% from 6.5%. MSK: -OA, DDD. Wheelchair bound. MRI this mon -Low back DDD on CT abd/pelvis. She endo rses her legs are like jelly . She reports weakness. She has been unable to walk and spends almost all day in bed and transport with . She had PT/OT but admits she could have made more of an effort to strengthen-referred back. She now has [employer] at home -Recent T1 compression fracture. stable pain. On tramadol, gabapentin. Declines referral to spine doctor/pain management at present. It is getting better with time. Evaluated in the ER at the end of January after fall. CT head notable for no evidence of ICH or skull fracture. CT C-spine notable for no evidence of cervical vertebral fracture subluxation, however, T1 fracture noted. T-spine x- ray notable for multilevel spondylosis, unable to evaluate T1 vertebra, no additional thoracic vertebral fractures or subluxation. No evidence of right tibia fracture on x-ray. TSH normalized with last testing Neuro: Patient c/o intention tremor-primidone was unhelpful. LE weakness as above. Also endorses worsening memory over the past 1-2 years. She has an appointment scheduled with neurology. Follows with dermatology for skin cancer. Appt next months ROS see HPI PHYSICAL EXAM: GENERAL: Alert and oriented x 3. NAD, WC bound EYES: EOMI. Anicteric. HENT: Moist mucous membranes. No scleral icterus. No cervical lymphadenopathy. LUNGS: Clear to auscultation bilaterally. CARDIOVASCULAR: Regular rate and rhythm. No JVD. ABDOMEN: Soft, non-tender +bs EXTREMITIES: No edema. Non-tender. SKIN: Rough skin with some excoriations of the face NEUROLOGIC: b/l weakness dorsiflexion. CN II-XII grossly intact PSYCHIATRIC: Cooperative. Appropriate mood and affect [facility] Medical History Persistent atrial fibrillation Pneumonia Morbid obesity Atrial fibrillation with rapid ventricular response Constipation Lung cancer Pneumonia COPD with acute exacerbation COPD (chronic obstructive pulmonary disease) Carpal tunnel syndrome, left Nerve pain High blood pressure Surgical History H/O: hysterectomy Family History Mother No problems noted. Father No problems noted. Social History Household Members: Spouse Housing: [facility] Housing Other:: [facility] Do you presently have visiting nurse or other home services: Yes ([facility]) Alcohol intake: never Patient Tobacco Use Status: Former Tobacco user Tobacco use type: Cigarette Cigarette Packs Per Day: 1 Cigarettes Per Day: 20.0 e-Cigarette/Vaping Use: Former Use Second Hand Smoke Exposure: No Advance Directives Date on File: 03/23/23 service: No Current occupational status: retired Current occupation: left handed Cognitive needs: Yes (wheelchair) Hearing needs: No Vision needs: No Questionnaire Thrive Questionnaire Date Thrive assessed: 05/23/25 I am a: Parent/Caregiver What is your living situation today?: I have a steady place to live Within the past 12 months, did the food you bought not last and you didn't have the money to get more?: Never true Within the past 12 months, did you worry whether your food would run out before you got money to buy more?: Never true Do you have trouble paying for medicines?: No Do you have trouble getting transportation to medical appointments?: Yes Do you have trouble paying your heating and electricity bill?: No Do you have trouble taking care of your child, family member or friend?: No Do you have trouble with day-to-day activities such as bathing, preparing meals, shopping, managing finances, etc.?: Yes Are you currently unemployed and looking for a job?: No Are you interested in more education?: No Currently or been in a relationship where the following occur: No concerns reported THRIVE Score: 1 CARLOS-7 AMB Questionnaire CARLOS-7 Date CARLOS - 7 assessed: 02/21/25 Source: Developed by Drs. Dillon Espino, Carole Man, Dilshad Shah and colleagues, with an educational maritza from [employer]. Physical exam (Primary Care) Vital Signs: Last Vital Signs Temp 97.6 F 09/02/25 10:14 Pulse 68 09/02/25 10:14 Resp 16 09/02/25 10:14 BP 106/53 L 09/02/25 10:14 Pulse Ox 95 09/02/25 10:14 Oxygen Delivery Method Nasal Cannula 09/02/25 10:14 Tobacco/Smoking Status: Tobacco use Status Tobacco use date assessed 09/02/25 09/02/25 10:16 Patient Tobacco Use Status Former Tobacco user 09/02/25 10:08 Tobacco use type Cigarette 09/02/25 10:08 e-Cigarette/Vaping Use Former Use 09/02/25 10:08 Thrive Assessment: Date of Thrive Assessment Date Thrive assessed 05/23/25 09/02/25 10:08 Currently or been in a relationship where the following occur: No concerns reported Results AMB Hemoglobin A1c AMB Hemoglobin A1c 6.1 % Last Edit by DAFNE Luu on 09/02/25 10:33 Coding Level of Care Code Add On Preventative Visit Only Diagnoses Prediabetes R73.03 Atrial fibrillation with rapid ventricular response I48.91 Hyperthyroidism E05.90 Pneumonia due to COVID-19 virus U07.1; J82 Assessment & Plan Assessment & Plan (1) Prediabetes: Code(s): R73.03 - Prediabetes Category: Medical (2) Atrial fibrillation with rapid ventricular response: Code(s): I48.91 - Unspecified atrial fibrillation Category: Medical (3) Hyperthyroidism: Code(s): E05.90 - Thyrotoxicosis, unspecified without thyrotoxic crisis or storm Category: Medical (4) Pneumonia due to COVID-19 virus: Code(s): U07.1 - COVID-19; J12.82 - Pneumonia due to coronavirus disease 2019 Category: Medical Plan 74 year old female presenting for follow up Prediabetes-A1C improved back to 6.1%. Decrease carbs/sweets CV-euvolemic. Blood pressure well controlled. She should be following with cardiology Weakness, tremor-upcoming MRI, neurology consult Orders: Orders AMB Hemoglobin A1c Today Z13.9 - Encounter for screening, unspecified Complete Blood Count Auto Diff Today E05.90 - Thyrotoxicosis, unspecified without thyrotoxic crisis or storm, I48.91 - Unspecified atrial fibrillation, R73.03 - Prediabetes Lipid Panel Today E05.90 - Thyrotoxicosis, unspecified without thyrotoxic crisis or storm, I48.91 - Unspecified atrial fibrillation, R73.03 - Prediabetes Hemoglobin A1c Today E05.90 - Thyrotoxicosis, unspecified without thyrotoxic crisis or storm, I48.91 - Unspecified atrial fibrillation, R73.03 - Prediabetes Comprehensive Met. Panel Today E05.90 - Thyrotoxicosis, unspecified without thyrotoxic crisis or storm, I48.91 - Unspecified atrial fibrillation, R73.03 - Prediabetes
[2025-09-02 10:14] VITALS: BP 106/53; PULSE 68; RESP 16; TEMP 36.4; O2SAT 95
--- OUTSIDE RECORDS SUMMARY | 2025-09-02 13:14 | XMS_ITS | Clinical Summary ---
Author Organization [facility] Facility Address [address] [place] [id number] Care Team Providers Care Child Development Consultant Name Role Phone Unavailable Primary Care Provider [...] age to complete this topic Insurance Medicare [facility] Medicare [facility]
== END 2025-09-02 10:52 | disposition home or self-care (01) ==
LOC: HO.HMCFM 10:04
PROVIDERS: PCP Internal Medicine; Visit Provider Internal Medicine
DX: R73.03 Prediabetes (principal); I48.91 Unspecified atrial fibrillation; E05.90 Thyrotoxicosis, unspecified without thyrotoxic crisis or storm; Z13.9 Encounter for screening, unspecified

== ENCOUNTER → 2025-09-02 10:03 | Outpatient (BNVA) | payer MEDICARE, OTHER, SELFPAY | PROVIDERS: PCP Internal Medicine; Visit Provider Internal Medicine | DX: Z09 Encounter for follow-up examination after completed treatment for conditions other than malignant neoplasm (principal); I10 Essential (primary) hypertension; I48.19 Other persistent atrial fibrillation; J44.9 Chronic obstructive pulmonary disease, unspecified; G47.33 Obstructive sleep apnea (adult) (pediatric); E05.90 Thyrotoxicosis, unspecified without thyrotoxic crisis or storm; R73.03 Prediabetes; U07.1 COVID-19; J12.82 Pneumonia due to coronavirus disease 2019; Z13.9 Encounter for screening, unspecified; Z79.01 Long term (current) use of anticoagulants; Z99.81 Dependence on supplemental oxygen; Z99.89 Dependence on other enabling machines and devices; Z99.3 Dependence on wheelchair | CPT/HCPCS: 83036; 99212 ==